=== PATIENT | male | born 1960 | race American Indian/Alaskan Native ===

== ENCOUNTER 2019-06-09 13:36 | Emergency (ER) | payer MEDICARE | END 2019-06-09 14:19 | disposition left against medical advice (07) | LOC: ED 13:36 | DX: R55 Syncope and collapse (principal); Z53.21 Procedure and treatment not carried out due to patient leaving prior to being seen by health care provider ==

== ENCOUNTER 2019-07-31 20:44 | Emergency (ER) | payer MEDICARE ==
--- NOTE | 2019-07-31 22:36 | Emergency Department Report ---
{null, ED Male HPI - General Chief complaint: Urogenital-Male Stated complaint: SWOLLEN TESTICLES Time Seen by Provider: 07/31/19 22:04 Source: EMS Mode of arrival: Ambulatory Limitations: No Limitations - History of Present Illness Initial comments: 59-year-old male with history of alcohol abuse, presents to ED with pain and swelling to the left testicle x1 week. Patient states there is a sore on his testicle that has opened up and started draining pus. Patient denies fever, nausea or vomiting. Patient was discharged 1 week ago following an admission for sepsis, acute renal failure, UTI, and pancreatitis. MD Complaint: testicle pain, testicle swelling -: week(s) (1) Location: left testicle Severity: moderate Quality: aching Consistency: constant Improves with: none Worsens with: palpation discharge. denies: fever, nausea/vomiting - Related Data Home Medications Medication Instructions Recorded Confirmed Last Taken Indomethacin 50 mg PO Q8H 04/19/16 04/19/16 Unknown Previous Rx's Medication Instructions Recorded Last Taken Type Folic Acid [Folvite] 1 mg PO QDAY #30 tablet 04/23/16 Unknown Rx Thiamine [Vitamin B-1] 100 mg PO QDAY #30 tablet 04/23/16 Unknown Rx allopurinoL [Zyloprim] 100 mg PO BID #60 tablet 04/23/16 Unknown Rx amLODIPine 5 mg PO DAILY #30 tab 04/23/16 Unknown Rx chlordiazePOXIDE [Librium] 25 mg PO Q8H #30 capsule 04/23/16 Unknown Rx AtorvaSTATin [Lipitor] 40 mg PO QHS #30 tablet 07/24/19 Unknown Rx Pantoprazole [Protonix TAB] 40 mg PO BID #60 tablet 07/24/19 Unknown Rx Allergies Allergy/AdvReac Type Severity Reaction Status Date / Time No Known Allergies Allergy Unverified 07/01/13 16:36 ED Review of Systems ROS: Stated complaint: SWOLLEN TESTICLES Other details as noted in HPI Comment: All other systems reviewed and negative Gastrointestinal: denies: nausea, vomiting Genitourinary: as per HPI ED Past Medical Hx - Past Medical History Hx Hypertension: Yes Hx Arthritis: Yes Additional medical history: gouty arthritis. pancreatitis - Social History Smoking Status: Never Smoker Substance Use Type: None - Medications Home Medications: Home Medications Medication Instructions Recorded Confirmed Last Taken Type Indomethacin 50 mg PO Q8H 04/19/16 04/19/16 Unknown History Folic Acid [Folvite] 1 mg PO QDAY #30 tablet 04/23/16 Unknown Rx Thiamine [Vitamin B-1] 100 mg PO QDAY #30 tablet 04/23/16 Unknown Rx allopurinoL [Zyloprim] 100 mg PO BID #60 tablet 04/23/16 Unknown Rx amLODIPine 5 mg PO DAILY #30 tab 04/23/16 Unknown Rx chlordiazePOXIDE [Librium] 25 mg PO Q8H #30 capsule 04/23/16 Unknown Rx AtorvaSTATin [Lipitor] 40 mg PO QHS #30 tablet 07/24/19 Unknown Rx Pantoprazole [Protonix TAB] 40 mg PO BID #60 tablet 07/24/19 Unknown Rx ED Physical Exam - General Limitations: No Limitations General appearance: alert, in no apparent distress - Head Head exam: Present: atraumatic, normocephalic - Eye Eye exam: Present: normal appearance, EOMI - ENT ENT exam: Present: mucous membranes moist - Neck Neck exam: Present: normal inspection - Respiratory Respiratory exam: Present: normal lung sounds bilaterally. Absent: respiratory distress - Cardiovascular Cardiovascular Exam: Present: regular rate, normal rhythm - GI/Abdominal GI/Abdominal exam: Present: soft. Absent: distended, tenderness - exam: Present: scrotal swelling (moderate, left-sided, w/ associated induration and an area w/ purulent discharge overlying area of fluctuance) - Extremities Exam Extremities exam: Present: normal inspection - Neurological Exam Neurological exam: Present: alert, oriented X3 - Psychiatric Psychiatric exam: Present: normal affect, normal mood - Skin Skin exam: Present: warm, dry, intact, normal color ED Course Vital Signs 07/31/19 07/31/19 07/31/19 21:16 22:30 23:32 Temperature 99.5 F Pulse Rate 99 H 89 94 H Respiratory 20 19 16 Rate Blood Pressure 141/84 141/84 Blood Pressure 126/74 [Right] O2 Sat by Pulse 97 100 100 Oximetry 07/31/19 08/01/19 08/01/19 23:46 00:00 00:16 Temperature Pulse Rate 86 86 80 Respiratory 17 13 16 Rate Blood Pressure 141/84 145/74 145/74 Blood Pressure [Right] O2 Sat by Pulse 100 100 100 Oximetry 08/01/19 08/01/19 08/01/19 00:19 00:30 00:46 Temperature 101.1 F H Pulse Rate 83 76 Respiratory 12 14 Rate Blood Pressure 145/74 145/74 Blood Pressure [Right] O2 Sat by Pulse 100 100 Oximetry 08/01/19 08/01/19 08/01/19 01:00 01:15 01:30 Temperature Pulse Rate 83 74 72 Respiratory 21 16 13 Rate Blood Pressure 145/74 145/74 145/74 Blood Pressure [Right] O2 Sat by Pulse 100 100 100 Oximetry 08/01/19 08/01/19 08/01/19 01:46 02:00 02:16 Temperature Pulse Rate 69 70 71 Respiratory 12 14 15 Rate Blood Pressure 145/74 137/78 137/78 Blood Pressure [Right] O2 Sat by Pulse 100 100 97 Oximetry 08/01/19 08/01/19 08/01/19 02:30 02:46 02:51 Temperature 99.7 F H Pulse Rate 85 75 Respiratory 23 19 Rate Blood Pressure 137/78 137/78 Blood Pressure [Right] O2 Sat by Pulse 100 100 Oximetry - Consultations Consultation #1: 08/01/19 00:43 Contacted [place] transfer line. State that they are on diversion. So, [facility] transfer line called for [facility]. 08/01/19 01:02 [employer] transfer class a lineman states no urologist director hr communications at [facility], so the asphalt screed operator contacted Dr Mahoney at [facility], which does have urology on-call. I spoke w/ Dr Mahoney, who initially said that he would accept, then changed his mind, stating that [facility] is too far away from [facility]. I explained that [facility] does not have a urologist director hr communications, [place] is on diversion, and [facility] has no urologist director hr communications either. He believes that [facility] is too far away and that we should be able to find another hospital [facility] that has urology on-call. So, he then refused to accept the transfer. supervisor bottle house cleaners here at [facility] was informed. 08/01/19 01:20 [employer] asphalt screed operator called back and stated that he was able to find another urologist director hr communications that covers [facility] and [facility]. So, I spoke to Dr Vasquez, who asks me to contact our general surgeon on-call to see if they thought that they could handle it. If not, he will accept the transfer. 08/01/19 01:50 Spoke w/ Dr Edwards, general surgeon on-call here at [facility]. Does not feel comfortable seeing this type of patient, states patient needs urology consult. 08/01/19 02:04 Spoke again w/ Dr Vasquez, urology on-call. Accepts transfer to [facility]. Wants pt to come to the ER. Spoke w/ ER physician, Dr Diaz, who accepts transfer to the [facility]. ED Medical Decision Making - Lab Data Result diagrams: 07/31/19 23:25 07/31/19 23:25 - Radiology Data Radiology results: report reviewed, image reviewed - Medical Decision Making 59-year-old male presents to ED with 1 week history of left-sided scrotal swelling and pain. On exam patient has induration, fluctuance and purulent discharge on the anterior surface of the left scrotum. Testicles tender to pa lpation. Patient developed a fever of 101 here in the ED. WBCs of 18. Lactic acid is normal. Vital signs are stable. Ultrasound shows left-sided orchitis with a 9 mm focal abscess within the testicle itself. Also shows a 3.5 x 2.5 x 5.5 cm scrotal abscess that has the possibility of being a mass lesion. Blood cultures were drawn, patient given vancomycin and Zosyn. Due to recent admission for sepsis, concern for possible worsening of patient's condition and development of Brooke's gangrene, patient requires IV antibiotics and urology consult. We do not have urology director hr communications here to this facility, therefore patient will be transferred to [facility]. I have spoken to Dr. Valdez who is aware the patient and will be seeing this patient. Patient accepted to [facility] ED by Dr. Diaz, ER attending. Critical care attestation.: If time is entered above; I have spent that time in minutes in the direct care of this critically ill patient, excluding procedure time. ED Disposition Clinical Impression: Orchitis with abscess, Scrotal abscess Disposition: [id number]/TX-[id number] ANOTHER TYPE HLTHCARE Is pt being admited?: No Condition: Stable Referrals: DEJUAN MASON MD [Primary Care Provider] - 3-5 Days Time of Disposition: 02:10 }
[2019-07-31] MEDS ORDERED: MORPHINE 4 MG/1 ML INJ ONE (22:52)
[2019-07-31] MEDS ORDERED: MORPHINE 4 MG/1 ML INJ IV ONE (22:52)
[2019-07-31] MEDS ORDERED: SODIUM CHLORIDE 0.9% 1000 ML 1,000 ML IV ONE (23:12)
[2019-07-31 23:52] LABS: Hematocrit 33.2 % (35.5-45.6); Hemoglobin 11.1 gm/dl (11.8-15.2); Mean Corpuscular HGB Conc 33 % (32-34); Mean Corpuscular Volume 77 fl (84-94); Platelet Count 365 K/mm3 (140-440); Red Blood Count 4.32 M/mm3 (3.65-5.03)
[2019-08-01 00:11] LABS: INR 1.12 (0.87-1.13); Partial Thromboplastin Time 30.5 Sec. (24.2-36.6)
[2019-08-01 00:14] LABS: Red Cell Distribution Width 26.7 % (13.2-15.2)
[2019-08-01] MEDS ORDERED: ACETAMINOPHEN 500 MG TAB ONE (00:14)
[2019-08-01 00:16] LABS: BUN/Creatinine Ratio 24; Blood Urea Nitrogen 12 mg/dL (9-20); Calcium 9.4 mg/dL (8.4-10.2); Hemolysis Index 38
[2019-08-01] MEDS ORDERED: ACETAMINOPHEN 500 MG TAB PO ONE (00:17)
--- NOTE | 2019-08-01 00:21 | Ultrasound Report ---
{null, Testicular ultrasound INDICATION: Left testicular swelling FINDINGS: The right testicle measures 3.7 cm in length and is unremarkable. There is arterial flow in the right testicle. The left testicle measures 3 cm in length. The left testicle is abnormal in appearance. There is some abnormal attenuation along the anterior superior aspect with some hypoechoic area. There is a 9 mm h ypoechoic structure within the testicle itself. The appearance is most characteristic of orchitis and possible testicular/scrotal abscess. There is arterial flow. There is a 3.5 x 2.5 x 5.5 cm heterogeneous structure superior to the right testicle. IMPRESSION: Left testicle is abnormal. There is a 9 mm hypoechoic area possibly representing focal te sticular abscess. Is possible this could represent small neoplasm. In addition there is abnormal echo genicity with a hypoechoic area along the anterior superior aspect of the testicle possibly represent ing a small abscess. The appearance is suspicious for orchitis. Superior to the right testicle there is a 3.5 x 2.5 x 5.5 cm heterogeneous collection in the scrotum which likely represents abscess. Possibility of mass lesion is considered. Signer Name: Tarun Rodriguez MD Signed: 08/01/2019 12:16 AM Workstation Name: [id number] }
[2019-08-01] MEDS ORDERED: VANCOMYCIN 1,750 MG in SODIUM CHLORIDE 0.9% 500 ML 500 ML IV ONE (00:25)
[2019-08-01] MEDS ORDERED: PIPERACIL/TAZOBACTA 4.5/NS 100 4.5 GM/100 ML VIAL IV SCH (01:00)
[2019-08-01] MEDS ORDERED: VANCOMYCIN PHARMACY TO DOSE IV SCH (01:00)
[2019-08-01] MEDS ORDERED: SODIUM CHLORIDE 0.9% 500 ML 500 ML ONE (01:36)
[2019-08-01] MEDS ORDERED: SODIUM CHLORIDE 0.9% 100 ML IVPB IV SCH (02:00)
[2019-08-01 02:49] LABS: Basophils % (Manual) 0 % (0.0-1.8); Eosinophils % (Manual) 0 % (0.0-4.3); Total Cells Counted 100
[2019-08-01 02:51] LABS: Anisocytosis 3+; Hypochromasia 1+
[2019-08-01 02:52] VITALS: BP 137/78
[2019-08-01 02:52] LABS: Platelet Estimate Consistent w Auto
== END 2019-08-01 03:51 | disposition other institution (70) ==
LOC: ED 20:44
DX: N45.2 Orchitis (principal); N49.2 Inflammatory disorders of scrotum; I10 Essential (primary) hypertension; M19.90 Unspecified osteoarthritis, unspecified site; Z79.899 Other long term (current) drug therapy
CPT/HCPCS: 36415; 80048; 82140; 85007; 85025; 85610; 85730; 87040; 93005; 93010; 93975; 96365; 96366; 96368; 96375; 99285; J2270; J2543; J3370; J7030; J7040

== ENCOUNTER 2019-10-25 12:23 | Inpatient (IN) | payer MEDICARE ==
[2019-10-25] MEDS ORDERED: SODIUM CHLORIDE 0.9% 1000 ML 1,000 ML IV ONE (12:50)
[2019-10-25] MEDS ORDERED: FAMOTIDINE 20 MG/2 ML INJ IV ONE (12:50)
[2019-10-25] MEDS ORDERED: LORazepam 2 MG/ML VIAL IV PRN ×2 (12:50)
[2019-10-25] MEDS ORDERED: SODIUM CHLORIDE 0.9% 1000 ML 2,000 ML IV ONE (12:50)
[2019-10-25] MEDS ORDERED: ONDANSETRON 4 MG/2 ML INJ IV ONE (12:50)
--- NOTE | 2019-10-25 12:56 | Emergency Department Report ---
ED General Adult HPI - General Chief complaint: Nausea/Vomiting/Diarrhea Stated complaint: NAUSEA/BP LOW PUI?: No Time Seen by Provider: 10/25/19 12:36 Source: patient, EMS (Verbal report received from emergency medical services. EMS documentation not available at time of chart dictation ), RN notes reviewed, old records reviewed Mode of arrival: Stretcher Limitations: No Limitations - History of Present Illness Initial comments: Patient is a 59-year-old gentleman. I have evaluated this patient in the past. His past medical history includes hypertension, arthritis, alcohol abuse, pancreatitis, tobacco dependency. The patient had an EGD performed at this hospital July 2019, which showed duodenitis and esophagitis. The patient has been counseled multiple times to discontinue alcohol consumption. He is brought to the hospital by emergency medical services. As per verbal report from EMS, patient has been having abdominal cramping, nausea vomiting, weakness, generalized malaise and fatigue. Patient complains of nausea and vomiting abdominal pain since Wednesday. Today is Wednesday. He has "vomited too many times to count." He also endorses chest pain with throwing up. He denies DVT and pulmonary embolism risk factors. He has chronic testicular discomfort. He denies dysuria. He denies hematemesis, but he is not sure about bright red blood per rectum. To me, he denies homicidality and suicidality. His last alcoholic beverage was "a few days ago." Patient hypotensive in the field, EMS initiated IV fluids. -: Gradual, days(s) Location: chest, abdomen Severity scale (0 -10): 7 Quality: aching Consistency: constant Improves with: rest Worsens with: movement - Related Data Home Medications Medication Instructions Recorded Confirmed Last Taken Indomethacin 50 mg PO Q8H 04/19/16 04/19/16 Unknown Previous Rx's Medication Instructions Recorded Last Taken Type Folic Acid [Folvite] 1 mg PO QDAY #30 tablet 04/23/16 Unknown Rx Thiamine [Vitamin B-1] 100 mg PO QDAY #30 tablet 04/23/16 Unknown Rx allopurinoL [Zyloprim] 100 mg PO BID #60 tablet 04/23/16 Unknown Rx amLODIPine 5 mg PO DAILY #30 tab 04/23/16 Unknown Rx chlordiazePOXIDE [Librium] 25 mg PO Q8H #30 capsule 04/23/16 Unknown Rx AtorvaSTATin [Lipitor] 40 mg PO QHS #30 tablet 07/24/19 Unknown Rx Pantoprazole [Protonix TAB] 40 mg PO BID #60 tablet 07/24/19 Unknown Rx Allergies Allergy/AdvReac Type Severity Reaction Status Date / Time No Known Allergies Allergy Verified 10/25/19 12:42 ED Review of Systems ROS: Stated complaint: NAUSEA/BP LOW Other details as noted in HPI Constitutional: malaise, weakness. denies: fever Eyes: denies: eye discharge ENT: denies: congestion Respiratory: denies: wheezing Cardiovascular: chest pain Gastrointestinal: abdominal pain, nausea, vomiting. denies: diarrhea Genitourinary: denies: dysuria Musculoskeletal: as per HPI Skin: as per HPI Neurological: as per HPI, weakness Psychiatric: denies: homicidal thoughts, suicidal thoughts Hematological/Lymphatic: as per HPI ED Past Medical Hx - Past Medical History Hx Hypertension: Yes Hx Arthritis: Yes Additional medical history: gouty arthritis. pancreatitis - Social History Smoking Status: Never Smoker Substance Use Type: None - Medications Home Medications: Home Medications Medication Instructions Recorded Confirmed Last Taken Type Indomethacin 50 mg PO Q8H 04/19/16 04/19/16 Unknown History Folic Acid [Folvite] 1 mg PO QDAY #30 tablet 04/23/16 Unknown Rx Thiamine [Vitamin B-1] 100 mg PO QDAY #30 tablet 04/23/16 Unknown Rx allopurinoL [Zyloprim] 100 mg PO BID #60 tablet 04/23/16 Unknown Rx amLODIPine 5 mg PO DAILY #30 tab 04/23/16 Unknown Rx chlordiazePOXIDE [Librium] 25 mg PO Q8H #30 capsule 04/23/16 Unknown Rx AtorvaSTATin [Lipitor] 40 mg PO QHS #30 tablet 07/24/19 Unknown Rx Pantoprazole [Protonix TAB] 40 mg PO BID #60 tablet 07/24/19 Unknown Rx ED Physical Exam - General Limitations: No Limitations General appearance: alert, anxious, in distress - Head Head exam: Present: atraumatic, normocephalic - Eye Eye exam: Present: normal appearance, EOMI - ENT ENT exam: Present: normal orophraynx, mucous membranes dry, normal external ear exam, other (Tongue fasciculations noted) - Neck Neck exam: Present: normal inspection, full ROM. Absent: tenderness, meningismus - Respiratory Respiratory exam: Present: normal lung sounds bilaterally. Absent: respiratory distress - Cardiovascular Cardiovascular Exam: Present: normal rhythm, tachycardia, normal heart sounds. Absent: systolic murmur, diastolic murmur, rubs, gallop - GI/Abdominal GI/Abdominal exam: Present: soft, tenderness. Absent: distended, guarding, rebound, rigid, pulsatile mass - Rectal Rectal exam: Present: normal inspection, normal rectal tone, other ( Chaperoned by Kiera Nevarez) - exam: Present: normal inspection, other (There is normal testicular lie bilaterally. There is normal cremasteric reflex bilaterally. Chaperoned by Kiera Nevarez) - Extremities Exam Extremities exam: Present: normal inspection, full ROM, other (2+ pulses noted in the bilateral upper and lower extremities. There is no palpable cord. negative Homans sign. Muscular compartments are soft. The pelvis is stable.). Absent: pedal edema, calf tenderness - Back Exam Back exam: Present: normal inspection, full ROM. Absent: tenderness, CVA tenderness (R), CVA tenderness (L), paraspinal tenderness, vertebral tenderness - Neurological Exam Neurological exam: Present: alert, oriented X3, other (No facial droop. Tongue midline. Extraocular movements intact bilaterally. Facial sensation intact to light touch in V1, V2, V3 distribution bilaterally. 5 and a 5 strength in 4 extremities. Sensation intact to light touch in 4 extremities.). Absent: motor sensory deficit - Psychiatric Psychiatric exam: Present: anxious. Absent: homicidal ideation, suicidal ideation - Skin Skin exam: Present: warm, dry, intact, normal color. Absent: rash ED Course Vital Signs 10/25/19 10/25/19 10/25/19 12:38 12:43 12:46 Temperature 98.2 F Pulse Rate 99 H 127 H 93 H Respiratory 14 16 18 Rate Blood Pressure 87/51 Blood Pressure 92/51 [Left] O2 Sat by Pulse 100 99 Oximetry 10/25/19 10/25/19 10/25/19 13:00 13:16 13:30 Temperature Pulse Rate 85 88 79 Respiratory 12 17 16 Rate Blood Pressure 87/51 79/51 79/51 Blood Pressure [Left] O2 Sat by Pulse 100 100 99 Oximetry 10/25/19 10/25/19 10/25/19 13:46 14:00 14:15 Temperature Pulse Rate 80 85 77 Respiratory 13 10 L 13 Rate Blood Pressure 101/56 107/67 103/64 Blood Pressure [Left] O2 Sat by Pulse 100 99 92 Oximetry 10/25/19 10/25/19 10/25/19 14:30 14:45 15:00 Temperature Pulse Rate 77 76 71 Respiratory 15 12 12 Rate Blood Pressure 101/59 95/63 94/57 Blood Pressure [Left] O2 Sat by Pulse 95 94 Oximetry 10/25/19 10/25/19 10/25/19 15:15 15:30 15:54 Temperature Pulse Rate 77 76 84 Respiratory 15 16 24 Rate Blood Pressure 98/64 101/70 101/70 Blood Pressure [Left] O2 Sat by Pulse 100 100 100 Oximetry 10/25/19 10/25/19 10/25/19 16:00 16:15 16:30 Temperature Pulse Rate 80 82 83 Respiratory 12 13 12 Rate Blood Pressure 112/75 117/80 104/74 Blood Pressure [Left] O2 Sat by Pulse 100 100 100 Oximetry 10/25/19 10/25/19 10/25/19 16:45 17:00 17:16 Temperature Pulse Rate 81 77 79 Respiratory 12 15 16 Rate Blood Pressure 114/75 107/69 107/69 Blood Pressure [Left] O2 Sat by Pulse 100 99 97 Oximetry 10/25/19 10/25/19 10/25/19 17:30 17:46 18:00 Temperature Pulse Rate 85 83 70 Respiratory 19 14 18 Rate Blood Pressure 107/69 107/69 106/66 Blood Pressure [Left] O2 Sat by Pulse 97 100 100 Oximetry 10/25/19 10/25/19 10/25/19 18:16 18:30 18:46 Temperature Pulse Rate 70 87 78 Respiratory 15 11 L 19 Rate Blood Pressure 106/66 106/66 106/66 Blood Pressure [Left] O2 Sat by Pulse 100 100 100 Oximetry 10/25/19 10/25/19 10/25/19 19:00 20:00 20:34 Temperature 97.7 F Pulse Rate 93 H 79 88 Respiratory 11 L 15 18 Rate Blood Pressure 112/77 122/78 119/77 Blood Pressure [Left] O2 Sat by Pulse 100 100 90 Oximetry 10/25/19 10/25/19 20:35 20:38 Temperature 97.7 F Pulse Rate 81 Respiratory 18 17 Rate Blood Pressure Blood Pressure 122/78 [Left] O2 Sat by Pulse 100 Oximetry - Reevaluation(s) Reevaluation #1: 10/25/19 13:17 Differential diagnosis, including but not limited to: Pancreatitis, alcohol withdrawal, obstruction, colitis, diverticular, electrolyte derangement, dehydration, GERD, gastritis, hiatal hernia Assessment and plan: 59-year-old gentleman with known history of pancreatitis, alcohol dependence, endoscopically confirmed esophagitis, with no DVT or pulmonary embolism risk factors, presenting with abdominal pain, nausea vomiting, hypotension, suspicious for pancreatitis, GERD, gastritis and volume depletion. 2 large-bore IVs to be established. IV fluids ordered. Pain medication, nausea medication to be ordered. Appropriate screening laboratory studies ordered. Patient placed on alcohol withdrawal protocol. There is no history of trauma. He is clinically sober at this time. He has not endorsed homicidality or suicidality to myself. Blood pressure is improving. We will reassess after data points have resulted. Anticipate admission for alcohol Related pancreatitis, GERD, gastritis. Reevaluation #2: 10/25/19 15:37 Blood pressure improved. Please note that there was a significant delay in disposition as the laboratory chemistry department had the patient's labs, but secondary to error, did not result them. I personally called up the lab multiple times to request expedited release of his studies. Eventually, laboratory studies resulted, showing renal insufficiency, likely secondary to dehydration, and vasomotor nephropathy. He does have an elevated troponin, which I suspect is a type II troponin leak, likely secondary to nausea, vomiting, dehydration, renal insufficiency. CT scan of the abdomen pelvis is pending at this time. Case presented to hospital physician, Dr. Hussein, who accepts the patient to the medical service. ED Medical Decision Making - Lab Data Result diagrams: 10/25/19 13:40 10/26/19 03:53 Vital Signs 10/25/19 12:43 Temperature 98.2 F Pulse Rate 127 H Respiratory 16 Rate Blood Pressure 92/51 [Left] O2 Sat by Pulse 100 Oximetry - EKG Data -: EKG Interpreted by Me EKG shows normal: sinus rhythm Rate: normal - EKG Data When compared to previous EKG there are: no significant change 10/25/19 13:19 Sinus rhythm, 93 bpm, left axis deviation, left anterior fascicular block, left ventricular hypertrophy, motion artifact, QTC is prolonged, the EKG is abnormal, the EKG is not a STEMI, the EKG appears to be unchanged from prior EKG from ebruary 2019, with the exception of prolonged QTC - Radiology Data Radiology results: report reviewed, image reviewed Print Report Referring Physician: ARACELI MADRID III Patient Name: SABINA KIRKLAND Date of : 1960 Sex: Male Report Date: 2019-07-22 Report Status: Finalized Findings [facility] [address] [id number] Cat Scan Report Signed Patient: SABINA KIRKLAND MR#: [id number] : 1960 Acct:[id number] Age/Sex: 59 / M ADM Date: 07/22/19 Loc: ED Attending Dr: Ordering Physician: ARACELI MADRID III, MD Date of Service: 07/22/19 Procedure(s): CT abdomen pelvis wo con Accession Number(s): [id number] cc: ARACELI MADRID III, MD CT ABDOMEN AND PELVIS WITHOUT CONTRAST INDICATION: Nausea with vomiting. Back pain. COMPARISON: No relevant prior imaging study available. TECHNIQUE: Axial, coronal and sagittal CT imaging of the abdomen and pelvis was performed without contrast. Lack of intravenous contrast limits evaluation of the vascular and solid organs. All CT scans at this location are performed using CT dose reduction for ALARA by means of automated exposure control. FINDINGS: LOWER CHEST: No significant abnormality. LIVER: No significant abnormality. BILIARY: No significant abnormality. PANCREAS: There is generalized mild peripancreatic inflammation. Generalized edema is noted along the pancreas is well. No additional significant abnormality. SPLEEN: No significant abnormality. ADRENALS: There is hyperplasia of the adrenal glands without a nodule or mass. KIDNEYS AND URETERS: Multiple bilateral renal cysts are seen measuring up to 1.1 cm on the left and 1.9 cm on the right. No additional significant abnormality. GI TRACT: No significant abnormality of the stomach or small bowel. There is mild sigmoid diverticulosis without evidence of diverticulitis. The colon is otherwise unremarkable. Unremarkable appendix. PERITONEUM: No free fluid. No free air. No fluid collection. LYMPH NODES: No significant adenopathy. VASCULATURE: The aorta is normal in caliber with mild generalized atherosclerosis. URINARY BLADDER: No significant abnormality. REPRODUCTIVE ORGANS: The prostate gland is normal in size and is densely calcified. ADDITIONAL FINDINGS: None. SKELETAL SYSTEM: No acute abnormality. Degenerative changes are seen throughout the spine. There are multiple old left rib fractures. IMPRESSION: 1. Suspected acute pancreatitis without an associated complication. 2. Additional findings as above. Signer Name: Jan Rice MD Signed: 07/22/2019 4:54 AM Workstation Name: [email or web address] Transcribed By: [place] Dictated By: Jan Rice MD Electronically Authenticated By: Jan Rice MD Signed Date/Time: 07/22/19453 DD/ 9 TD/TT: Patient: SABINA KIRKLAND MR#: [id number] : 1960 Acct:[id number] Age/Sex: 59 / M ADM Date: 07/22/19 Loc: ED Attending Dr: Ordering Physician: ARACELI MADRID III, MD Date of Service: 07/22/19 Procedure(s): CT angio chest Accession Number(s): [id number] cc: ARACELI MADRID III, MD CTA CHEST WITH IV CONTRAST INDICATION: Chest pain. Back pain. Hypoxia. TECHNIQUE: Axial CT images were obtained through the chest after injection of 100 cc Omnipaque 350 IV contrast. 3 plane MIP reconstructions were produced. All CT scans at this location are performed using CT dose reduction for ALARA by means of automated exposure control. COMPARISON: One view of the chest from earlier today. FINDINGS: PULMONARY ARTERIES: No pulmonary emboli. AORTA AND ARTERIES: The aorta and great vessels are patent and normal in caliber with mild atherosclerosis. There is mild coronary atherosclerosis as well. No additional significant abnormality. MEDIASTINUM: The thyroid gland is unremarkable. The trachea and main bronchi are patent and normal in caliber. No mass or lymphadenopathy. Normal heart size without a pericardial effusion. LUNGS: No suspicious consolidation, nodule or mass. No pneumothorax or pleural effusion. ADDITIONAL FINDINGS: None. UPPER ABDOMEN: No acute findings. BONES: No acute abnormality. Mild degenerative changes are present throughout the spine. IMPRESSION: 1. No CT evidence for pulmonary embolism. 2. No acute abnormality of the chest. Signer Name: Jan Rice MD Signed: 07/22/2019 4:44 AM Workstation Name: [email or web address] Print Report Referring Physician: ALEX TINAJERO Patient Name: SABINA KIRKLAND Date of : 1960 Sex: Male Report Date: 2019-10-25 Report Status: Finalized Findings [address] [address] XRay Report Signed Patient: SABINA KIRKLAND MR#: [id number] : 1960 Acct:[id number] Age/Sex: 59 / M ADM Date: 10/25/19 Loc: ED Attending Dr: Ordering Physician: ALEX TINAJERO MD Date of Service: 10/25/19 Procedure(s): XR chest 1V ap Accession Number(s): [id number] cc: ALEX TINAJERO MD Fluoro Time In Minutes: CHEST 1 VIEW INDICATION: cp abd pain n/v. COMPARISON: 07/26/2019 FINDINGS: SUPPORT DEVICES: None. HEART / MEDIASTINUM: No significant abnormality. LUNGS / PLEURA: No significant pulmonary or pleural abnormality. No pneumothorax. ADDITIONAL FINDINGS: IMPRESSION: 1. No acute cardiopulmonary disease Signer Name: Ramírez Will MD Signed: 10/25/2019 1:34 PM Workstation Name: [id number] Transcribed By: WG Dictated By: Ramírez Will MD Electronically Authenticated By: Ramírez Will MD Signed Date/Time: 10/25/19 133 DD/ 1334 TD/TT: Print Report Referring Physician: ALEX TINAJERO Patient Name: SABINA KIRKLAND Date of : 1960 Sex: Male Report Date: 2019-10-25 Report Status: Finalized Findings [address] [address] Cat Scan Report Signed Patient: SABINA KIRKLAND MR#: [id number] : 1960 Ac ct:[id number] Age/Sex: 59 / M ADM Date: 10/25/19 Loc: 4A [id number]: FAY HUSSEIN MD Ordering Physician: ALEX TINAJERO MD Date of Service: 10/25/19 Procedure(s): CT abdomen pelvis wo con Accession Number(s): [id number] cc: ALEX TINAJERO MD CT abdomen pelvis wo con INDICATION: abd pain n/v. TECHNIQUE: All CT scans at this location are performed using the following dose modulation technique: Automated exposure control. Helical slices were obtained through the abdomen and pelvis. No contrast is administered. COMPARISON: CT scan dated 07/22/2019 FINDINGS: Abdomen: No acute abnormality is seen in the lower chest. The liver, spleen, adrenal glands, and kidneys are unchanged in ap pearance from the prior study. Hyperplasia of the adrenal glands is stable. Cystic lesions in the kidneys are better seen on the prior contrast-enhanced study but appear unchanged. Atherosclerotic calcifications in the aorta and iliac arteries appear unchanged. There are calcifications noted in the head of the pancreas characteristic of chronic pancreas tightness. There is a 2.2 cm fluid collection between the head of the pancreas in the second portion of the duodenum. There is wall thickening in the proximal duodenum.. The gallbladder is grossly unremarkable. There is some fluid noted in small bowel small bowel loops are normal caliber. This is a nonspecific finding but could indicate an en teritis. Pelvis: Prostatic calcifications are noted. Urinary bladder is grossly unremarkable. There is no inflammatory change. There are no abnormal collections. On review of bone windows, no acute osseous abnormalities are seen. Degenerative changes are noted spine. IMPRESSION: 1. Calcifications are noted in the head of the pancreas characteristic of chronic pancreatitis. Small fluid collection between the head of the pancreas in the duodenum. There is some mild stranding in the peripancreatic fat adjacent to the head of the pancreas and there is some wall thickening in the duodenum. This could represent a component of acute pancreatitis superimposed on chronic calcific pancreatitis. Wall t hickening of the duodenum could represent duodenitis or peptic ulcer disease rather than pancreatitis. Signer Name: Tarun Rodriguez MD Signed: 10/25/2019 4:20 PM Workstation Name: [id number] Transcribed By: Dictated By: Tarun Rodriguez MD Electronically Authenticated By: Tarun Rodriguez MD Signed Date/Time: 10/25/19 1620 DD/ 1613 Critical Care Time: Yes Critical care time in (mins) excluding proc time.: 35 Critical care attestation.: If time is entered above; I have spent that time in minutes in the direct care of this critically ill patient, excluding procedure time. ED Disposition Clinical Impression: Hypokalemia, Metabolic alkalosis Acute renal failure Qualifiers: Acute renal failure type: unspecified Qualified Code(s): N17.9 - Acute kidney failure, unspecified Nausea & vomiting Qualifiers: Vomiting type: unspecified Vomiting Intractability: non-intractable Qualified Code(s): R11.2 - Nausea with vomiting, unspecified Pancreatitis Qualifiers: Chronicity: acute Pancreatitis type: unspecified pancreatitis type Acute pancreatitis complication: unspecified Qualified Code(s): K85.90 - Acute pancreatitis without necrosis or infection, unspecified Disposition: CA-09 OP ADMIT IP TO THIS [facility] Is pt being admited?: Yes Does the pt Need Aspirin: No Condition: Fair
[2019-10-25] MEDS ORDERED: D5W/0.45% NACL 1,000 ML IV SCH (13:00)
--- NOTE | 2019-10-25 13:39 | XRay Report ---
CHEST 1 VIEW INDICATION: cp abd pain n/v. COMPARISON: 07/26/2019 FINDINGS: SUPPORT DEVICES: None. HEART / MEDIASTINUM: No significant abnormality. LUNGS / PLEURA: No significant pulmonary or pleural abnormality. No pneumothorax. ADDITIONAL FINDINGS: IMPRESSION: 1. No acute cardiopulmonary disease Signer Name: Ramírez Will MD Signed: 10/25/2019 1:34 PM Workstation Name: [id number]
[2019-10-25] MEDS ORDERED: SUCRALFATE 1 GM/10 ML ORAL LIQD PO ONE (13:54)
[2019-10-25 14:28] LABS: Basophils % (Auto) 0.4 % (0.0-1.8); Eosinophils # (Auto) 0.1 K/mm3 (0.0-0.4); Eosinophils % (Auto) 0.6 % (0.0-4.3); Hematocrit 39.3 % (35.5-45.6); Hemoglobin 12.7 gm/dl (11.8-15.2); Lymphocytes # (Auto) 1.2 K/mm3 (1.2-5.4); Lymphocytes % (Auto) 11.2 % (13.4-35.0); Mean Corpuscular HGB Conc 32 % (32-34); Mean Corpuscular Volume 75 fl (84-94); Monocytes # (Auto) 1.4 K/mm3 (0.0-0.8); Monocytes % (Auto) 13.4 % (0.0-7.3); Platelet Count 402 K/mm3 (140-440); Red Blood Count 5.27 M/mm3 (3.65-5.03)
[2019-10-25 14:37] LABS: INR 1.05 (0.87-1.13)
[2019-10-25 14:43] LABS: Red Cell Distribution Width 20.6 % (13.2-15.2)
[2019-10-25 15:25] LABS: Albumin 3.9 g/dL (3.9-5); Calcium 9.7 mg/dL (8.4-10.2)
[2019-10-25 15:37] LABS: Chol/HDL Ratio 3.34 %
--- NOTE | 2019-10-25 15:37 | History and Physical Report ---
History of Present Illness Chief complaint: I feel sick History of present illness: 59 YO Male with HTN, OA, HLD, ETOH Dependence, ETOH Pancreatitis, Esophagitis, Gout presents to ED for evaluation. Patient states that he has "been feeling sick" over the past 5 days with persistent symptoms over the same timeframe P atient states that he has experienced abdominal cramping accompanied by nausea and multiple episodes of vomiting, generalized weakness, fatigue. Patient states that his last drink of alcohol was approximately 2 days ago. EMS was notified and upon arrival the patient was found to be in distress and subsequently transported to [facility] for further evaluation and care. Patient seen and evaluated in the emergency department. Lab and imaging studies reviewed. Patient underwent CT scan of the abdomen and pelvis which is consistent with chronic pancreatitis suspected secondary to alcohol use, patient was also found to have a urinary tract infection, as well as acute kidney injury. Patient admitted to medical floor due to increased risk of decompensation. Patient treated with IV fluid resuscitation therapy, and initiated on CIWA protocol. Patient was also initiated on IV antibiotic therapy for urinary tract infection. Patient has experienced intermittent episodes of increased lethargy while in the emergency department which is consistent with alcoholic encephalopathy. Patient treated with supportive care. Nephrology team consulted in ED. Patient denies fever, chills, chest pain, palpitation, productive cough, skin rash, recent ill contacts, ingestion of food/water from new or different sources, bright red blood per rectum, or known exposure to COVID-19. Prior admission on 07/22/2019 reviewed. All medication listed at time of admission has been reconciled. Past History Past Medical History: arthritis, hypertension, hyperlipidemia, other (See HPI) Past Surgical History: No surgical history, Other (Reviewed) Social history: single, alcohol abuse Family history: hypertension Medications and Allergies Allergies Allergy/AdvReac Type Severity Reaction Status Date / Time No Known Allergies Allergy Verified 10/25/19 12:42 Home Medications Medication Instructions Recorded Confirmed Last Taken Type Indomethacin 50 mg PO Q8H 04/19/16 04/19/16 Unknown History Folic Acid [Folvite] 1 mg PO QDAY #30 tablet 04/23/16 Unknown Rx Thiamine [Vitamin B-1] 100 mg PO QDAY #30 tablet 04/23/16 Unknown Rx allopurinoL [Zyloprim] 100 mg PO BID #60 tablet 04/23/16 Unknown Rx amLODIPine 5 mg PO DAILY #30 tab 04/23/16 Unknown Rx chlordiazePOXIDE [Librium] 25 mg PO Q8H #30 capsule 04/23/16 Unknown Rx AtorvaSTATin [Lipitor] 40 mg PO QHS #30 tablet 07/24/19 Unknown Rx Pantoprazole [Protonix TAB] 40 mg PO BID #60 tablet 07/24/19 Unknown Rx Active Meds: Active Medications Lorazepam (Ativan) 2 mg IV Q1HR PRN PRN Reason: CIWA-Ar 8-15 Lorazepam (Ativan) 4 mg IV Q1HR PRN PRN Reason: CIWA-Ar 16-25 Lorazepam (Ativan) 4 mg IV Q15MIN PRN PRN Reason: CIWA-Ar >25 Review of Systems Constitutional: weakness, malaise, no weight loss, no weight gain, no fever, no chills Ears, nose, mouth and throat: no ear pain, no ear discharge, no tinnitis, no d ecreased hearing Cardiovascular: no chest pain, no orthopnea, no palpitations, no rapid/irregular heart beat Respiratory: no cough, no cough with sputum, no excessive sputum, no hemoptysis Gastrointestinal: abdominal pain, nausea, vomiting, no loss of appetite, no early satiety, no belching Genitourinary Male: no hematuria, no flank pain, no discharge, no urinary frequency, no urinary hesitancy Rectal: no pain, no incontinence, no bleeding Musculoskeletal: no neck stiffness, no neck pain, no shooting arm pain, no arm numbness/tingling, no low back pain, no shooting leg pain Integumentary: no rash, no pruritis, no redness, no sores, no wounds Neurological: no weakness, no parathesias, no numbness, no tingling Psychiatric: no anxiety, no memory loss, no change in sleep habits, no sleep disturbances, no insomnia, no hypersomnia, no change in appetite Endocrine: no cold intolerance, no heat intolerance, no polyphagia, no excessive thirst, no polydipsia, no polyuria Hematologic/Lymphatic: no easy bruising, no easy bleeding, no lymphadenopathy, no lymphedema Allergic/Immunologic: no urticaria, no persistent infections, no anaphylaxis Exam - Constitutional Vitals: Temp Pulse Resp BP Pulse Ox 98.2 F 77 15 98/64 100 10/25/19 12:43 10/25/19 15:15 10/25/19 15:15 10/25/19 15:15 10/25/19 15:15 General appearance: Present: mild distress, disheveled - EENT Eyes: Present: PERRL ENT: hearing intact, clear oral mucosa - Neck Neck: Present: supple, normal ROM - Respiratory Respiratory effort: normal Respiratory: bilateral: CTA - Cardiovascular Heart Sounds: Present: S1 & S2. Absent: rub, click - Extremities Extremities: pulses symmetrical, No edema Peripheral Pulses: within normal limits - Abdominal General gastrointestinal: Present: soft, non-tender, non-distended, normal bowel sounds Male genitourinary: Present: normal - Integumentary Integumentary: Present: clear, warm, dry - Musculoskeletal Musculoskeletal: generalized weakness - Psychiatric Psychiatric: no intact judgment & insight, memory intact, other (Patient has experienced episodes of lethargy while in the ER) - Neurologic Neurologic: CNII-XII intact, no focal deficits, moves all extremities, no gait normal Results - Labs CBC & Chem 7: 10/25/19 13:40 10/25/19 13:40 Labs: Abnormal lab results 10/25/19 10/25/19 10/25/19 Range/Units 13:40 13:40 13:40 RBC 5.27 H (3.65-5.03) M/mm3 MCV 75 L (84-94) fl MCH 24 L (28-32) pg RDW 20.6 H (13.2-15.2) % Lymph % (Auto) 11.2 L (13.4-35.0) % [place] % (Auto) 13.4 H (0.0-7.3) % [place] # 1.4 H (0.0-0.8) K/mm3 Seg Neutrophils % 74.4 H (40.0-70.0) % Seg Neutrophils # 7.9 H (1.8-7.7) K/mm3 Potassium 3.2 L (3.6-5.0) mmol/L Chloride 89.5 L (98-107) mmol/L BUN 45 H (9-20) mg/dL Creatinine 5.8 H (0.8-1.5) mg/dL Glucose 105 H (75-100) mg/dL ALT 6 L (7-56) units/L Total Creatine Kinase 32 L (55-170) units/L Troponin T 0.041 H (0.00-0.029) ng/mL Lipase 141 H (13-60) units/L Acetaminophen < 5.0 L (10.0-30.0) ug/mL Assessment and Plan - Patient Problems (1) Acute kidney injury Current Visit: Yes Status: Acute Plan to address problem: IV fluid resuscitation therapy, monitor urine output every shift, strict I's/O, monitor urine output every shift, urine sodium, urine creatinine, renal ultrasound, nephrology team consulted in ED. Repeat BMP in a.m. to monitor serum creatinine. (2) Urinary tract infection Current Visit: Yes Status: Acute Qualifiers: Encounter type: initial encounter Plan to address problem: CBC, CMP, urinalysis, IV antibiotic therapy. (3) Alcoholic encephalopathy Current Visit: Yes Status: Acute Plan to address problem: Supportive care, CIWA protocol, thiamine, multivitamin, folic acid daily. Seizure precautions, fall precautions, neuro checks. (4) Esophagitis Current Visit: Yes Status: Acute Plan to address problem: PPI therapy, supportive care, outpatient GI follow-up. (5) Hypertension Current Visit: Yes Status: Acute Qualifiers: Hypertension type: essential hypertension Qualified Code(s): I10 - Essential (primary) hypertension Plan to address problem: Monitor blood pressure every shift, continue medical management. (6) Osteoarthritis Current Visit: Yes Status: Acute Qualifiers: Laterality: unspecified laterality Plan to address problem: Supportive care, pain control. (7) Hyperlipidemia Current Visit: Yes Status: Acute Qualifiers: Hyperlipidemia type: mixed hyperlipidemia Qualified Code(s): E78.2 - Mixed hyperlipidemia Plan to address problem: Low-cholesterol diet, lipid panel, supportive care. (8) Chronic alcoholic pancreatitis Current Visit: Yes Status: Acute Plan to address problem: IV fluid resuscitation therapy, bowel rest, advance diet as tolerated, thiamine, folic acid, multivitamin daily, alcohol cessation counseling. (9) DVT prophylaxis Current Visit: Yes Status: Acute Plan to address problem: SCD to bilateral lower extremities while in bed, prophylactic heparin
[2019-10-25] MEDS ORDERED: POTASSIUM CHLORIDE ER 20 MEQ TAB PO ONE (15:38)
[2019-10-25] MEDS ORDERED: THIAMINE 100 MG, FOLIC ACID 1 MG, MULTIPLE VITAMIN INJ, ADULT 10 ML in SODIUM CHLORIDE ... IV ONE (15:38)
[2019-10-25] MEDS ORDERED: SODIUM CHLORIDE 0.9% 1000 ML 1,000 ML IV SCH (15:45)
[2019-10-25] MEDS ORDERED: NON-FORMULARY EACH (Indomethacin [Indomethacin] 50 MG) PO SCH (15:45)
[2019-10-25 15:48] LABS: Bacteria,Urine 1+ /HPF (Negative); Bilirubin,Urine NEG (Negative); Blood,Urine SM (Negative); Color,Urine Yellow (Yellow); Mucus,Urine FEW /HPF; Sperm,Urine FEW /HPF (NP); WBC,Urine > 182.0 /HPF (0.0-6.0)
[2019-10-25] MEDS: POTASSIUM CHLORIDE 10 MEQ 10 MEQ/100 ML BAG IV SCH ×2 (16:14→16:38)
--- NOTE | 2019-10-25 16:25 | Cat Scan Report ---
CT abdomen pelvis wo con INDICATION: abd pain n/v. TECHNIQUE: All CT scans at this location are performed using the following dose modulation technique: Automated exposure control. Helical slices were obtained through the abdomen and pelvis. No contrast is adminis tered. COMPARISON: CT scan dated 07/22/2019 FINDINGS: Abdomen: No acute abnormality is seen in the lower chest. The liver, spleen, adrenal glands, and kidneys are unchanged in appearance from the prior study. Hype rplasia of the adrenal glands is stable. Cystic lesions in the kidneys are better seen on the prior c ontrast-enhanced study but appear unchanged. Atherosclerotic calcifications in the aorta and iliac ar teries appear unchanged. There are calcifications noted in the head of the pancreas characteristic of chronic pancreas tightne ss. There is a 2.2 cm fluid collection between the head of the pancreas in the second portion of the duodenum. There is wall thickening in the proximal duodenum.. The gallbladder is grossly unremarkable . There is some fluid noted in small bowel small bowel loops are normal caliber. This is a nonspecific finding but could indicate an enteritis. Pelvis: Prostatic calcifications are noted. Urinary bladder is grossly unremarkable. There is no infl ammatory change. There are no abnormal collections. On review of bone windows, no acute osseous abnormalities are seen. Degenerative changes are noted sp ine. IMPRESSION: 1. Calcifications are noted in the head of the pancreas characteristic of chronic pancreatitis. Small fluid collection between the head of the pancreas in the duodenum. There is some mild stranding in t he peripancreatic fat adjacent to the head of the pancreas and there is some wall thickening in the d uodenum. This could represent a component of acute pancreatitis superimposed on chronic calcific panc reatitis. Wall thickening of the duodenum could represent duodenitis or peptic ulcer disease rather than pancre atitis. Signer Name: Tarun Rodriguez MD Signed: 10/25/2019 4:20 PM Workstation Name: [id number]
[2019-10-25] MEDS ORDERED: THIAMINE 100 MG TAB ONE (16:53)
[2019-10-25] MEDS ORDERED: chlordiazePOXIDE 25 MG CAP ONE (16:54)
[2019-10-25] MEDS ORDERED: FOLIC ACID 1 MG, MULTIPLE VITAMIN INJ, ADULT 10 ML in SODIUM CHLORIDE 0.9% 1000 ML 1,00... IV ONE (17:00)
[2019-10-25] MEDS ORDERED: THIAMINE 100 MG TAB PO ONE (17:00)
[2019-10-25] MEDS: chlordiazePOXIDE 25 MG CAP PO SCH ×2 (17:06→22:08)
[2019-10-25] MEDS ORDERED: cefTRIAXone/NS 1 GM/50 ML 1 GM/50 ML BAG IV ONE (18:25)
[2019-10-25] MEDS: cefTRIAXone/NS 1 GM/50 ML 1 GM/50 ML BAG IV SCH (18:30)
[2019-10-25 20:32] LABS: Creatinine,Urine 170.7 mg/dL (0.1-20.0)
[2019-10-25] MEDS ORDERED: INDOMETHACIN 25 MG CAP PO SCH (22:00)
[2019-10-25] MEDS: LORazepam 2 MG/ML VIAL IV PRN (22:07)
[2019-10-25] MEDS: HEPARIN 5,000 UNIT/1 ML VIAL SUB-Q SCH (22:07)
[2019-10-25] MEDS: ONDANSETRON 4 MG/2 ML INJ IV PRN (22:07)
[2019-10-25] MEDS: PANTOPRAZOLE 40 MG TAB PO SCH (22:08)
[2019-10-25] MEDS: allopurinoL 100 MG TAB PO SCH (22:09)
[2019-10-25] MEDS: ACETAMINOPHEN 325 MG TAB PO PRN (22:20)
[2019-10-26 05:03] LABS: Albumin 3.2 g/dL (3.9-5); Calcium 9.2 mg/dL (8.4-10.2)
[2019-10-26] MEDS: ACETAMINOPHEN 325 MG TAB PO PRN (05:28)
[2019-10-26] MEDS: chlordiazePOXIDE 25 MG CAP PO SCH ×3 (05:28→22:33)
--- NOTE | 2019-10-26 08:44 | Ultrasound Report ---
ULTRASOUND RENAL INDICATION / CLINICAL INFORMATION: Acute kidney injury. COMPARISON: CT scan from yesterday FINDINGS: RIGHT KIDNEY: Length = 8.6 cm. - Echogenicity: Normal. - Cortical Thickness: Normal. - Hydronephrosis: None. - Cyst or mass: No significant abnormality. - Stones: 7 mm length echogenic focus in a nondilated calyx of the interpolar region without associat ed shadowing or color comet tail artifact. LEFT KIDNEY: Length = 10.6 cm. - Echogenicity: Normal. - Cortical Thickness: Normal. - Hydronephrosis: None. - Cyst or mass: No significant abnormality. - Stones: 6 mm linear echogenic focus in a nondilated upper pole calyx URINARY BLADDER: No significant abnormality. FREE FLUID: None. ADDITIONAL FINDINGS: None. IMPRESSION: 1. A 7 mm echogenic focus in the right kidney correlates with a small stone seen on yesterday's CT sc an. 2. Indeterminate 6 mm echogenic focus in the left kidney without CT correlate. 3. No hydronephrosis. Signer Name: Erich Garcia MD Signed: 10/26/2019 8:39 AM Workstation Name: [id number]
[2019-10-26] MEDS: FOLIC ACID 1 MG TAB PO SCH (09:10)
[2019-10-26] MEDS: PANTOPRAZOLE 40 MG TAB PO SCH (09:10)
[2019-10-26] MEDS: amLODIPine 5 MG TAB PO SCH (09:10)
--- NOTE | 2019-10-26 09:10 | Progress Note ---
Assessment and Plan Assessment and plan: 59 YO Male with HTN, OA, HLD, ETOH Dependence, ETOH Pancreatitis, Esophagitis, Gout presents to ED for evaluation. Patient states that he has "been feeling sick" over the past 5 days with persistent symptoms over the same timeframe Patient states that he has experienced abdominal cramping accompanied by nausea and multiple episodes of vomiting, generalized weakness, fatigue. Patient states that his last drink of alcohol was approximately 2 days ago. EMS was notified and upon arrival the patient was found to be in distress and subsequently transported to [facility] for further evaluation and care. Patient seen and evaluated in the emergency department. Lab and imaging studies reviewed. * CT scan of the abdomen and pelvis which is consistent with chronic pancreatitis suspected secondary to alcohol use, * patient was also found to have a urinary tract infection, as well as acute kidney injury. * Patient admitted to medical floor due to increased risk of decompensation. Patient treated with IV fluid resuscitation therapy, and initiated on CIWA protocol. * Patient was also initiated on IV antibiotic therapy for urinary tract infection. Patient has experienced intermittent episodes of increased lethargy while in the emergency department which is consistent with alcoholic encephalopathy. 10/25: Patient this morning still lethargic renal function showing some improvement. While he does not endorse depression he tells me that the reason he has now quit smoking and drinking is because he is alone and does not know what to do. I revised I reviewed my prior discussion with him considering his severe LA grade IV esophagitis and duodenitis based on prior visit he verbalized understanding. We will continue with current management will recommend outpatient mental health evaluation as he has to also take initiated for his care. We will continue CIWA protocol replace electrolytes as needed and pain control he does have underlying pancreatitis which is chronic. His UTI appears to be more of pyuria he does not have any evidence of infection we will continue to monitor and discontinue antibiotics in a.m. we will also continue PPI at this time. Anticipate possible discharge in a.m. plan discussed with the patient and nursing staff at bedside Acute on chronic pancreatitis secondary to EtOH Type II SC in relation to acute renal failure EtOH dependency Persistent hypokalemia Acute Renal Failure secondary to vasomotor nephropathy Pyuria doubt acute cystitis Dysphasia Severe, LA Grade IV, esophagitis Duodenitis. Biopsied History Interval history: Patient seen and examined awake alert oriented but still tremulous. Verbalized understanding that he continues to drink question underlining depression denies any suicidal ideation Hospitalist Physical - Physical exam Narrative exam: VITAL SIGNS: Reviewed. GENERAL: The patient appears normally developed, disheveled vital signs as documented. HEAD: No signs of head trauma. EYES: Pupils are equal. Extraocular motions intact. EARS: Hearing grossly intact. MOUTH: Oropharynx is normal. NECK: No adenopathy, no JVD. CHEST: Chest with diminished breath sounds bilaterally. No wheezes, rales, or rhonchi. CARDIAC: Regular rate and rhythm. S1 and S2, without murmurs, gallops, or rubs. VASCULAR: No Edema. Peripheral pulses normal and equal in all extremities. ABDOMEN: Soft, non tender and non distended. No rebound or guarding, and no masses palpated. Bowel Sounds normal. MUSCULOSKELETAL: Good range of motion of all major joints. Extremities without clubbing, cyanosis or edema. NEUROLOGIC EXAM: Awake, lethargic oriented x3 no focal sensory or strength deficits. Speech normal. Follows commands. PSYCHIATRIC: Mood normal. SKIN: detial exam as documented in skin assessment - Constitutional Vitals: Temp Pulse Resp BP Pulse Ox 98.6 F 80 18 139/92 100 10/26/19 07:29 10/26/19 07:29 10/26/19 07:29 10/26/19 07:29 10/26/19 07:29 General appearance: Present: mild distress, disheveled Results - Labs CBC & Chem 7: 10/25/19 13:40 10/26/19 03:53 Labs: Laboratory Last Values WBC 10.6 K/mm3 (4.5-11.0) 10/25/19 13:40 RBC 5.27 M/mm3 (3.65-5.03) H 10/25/19 13:40 Hgb 12.7 gm/dl (11.8-15.2) 10/25/19 13:40 Hct 39.3 % (35.5-45.6) 10/25/19 13:40 MCV 75 fl (84-94) L 10/25/19 13:40 MCH 24 pg (28-32) L 10/25/19 13:40 MCHC 32 % (32-34) 10/25/19 13:40 RDW 20.6 % (13.2-15.2) H 10/25/19 13:40 Plt Count 402 K/mm3 (140-440) 10/25/19 13:40 Lymph % (Auto) 11.2 % (13.4-35.0) L 10/25/19 13:40 [place] % (Auto) 13.4 % (0.0-7.3) H 10/25/19 13:40 Eos % (Auto) 0.6 % (0.0-4.3) 10/25/19 13:40 Baso % (Auto) 0.4 % (0.0-1.8) 10/25/19 13:40 Lymph # 1.2 K/mm3 (1.2-5.4) 10/25/19 13:40 [place] # 1.4 K/mm3 (0.0-0.8) H 10/25/19 13:40 Eos # 0.1 K/mm3 (0.0-0.4) 10/25/19 13:40 Baso # 0.0 K/mm3 (0.0-0.1) 10/25/19 13:40 Seg Neutrophils % 74.4 % (40.0-70.0) H 10/25/19 13:40 Seg Neutrophils # 7.9 K/mm3 (1.8-7.7) H 10/25/19 13:40 PT 13.5 Sec. (12.2-14.9) 10/25/19 13:40 INR 1.05 (0.87-1.13) 10/25/19 13:40 Sodium 137 mmol/L (137-145) 10/26/19 03:53 Potassium 3.3 mmol/L (3.6-5.0) L 10/26/19 03:53 Chloride 94.9 mmol/L (98-107) L 10/26/19 03:53 Carbon Dioxide 25 mmol/L (22-30) 10/26/19 03:53 Anion Gap 20 mmol/L 10/26/19 03:53 BUN 37 mg/dL (9-20) H 10/26/19 03:53 Creatinine 2.3 mg/dL (0.8-1.5) H D 10/26/19 03:53 Estimated GFR 35 ml/min 10/26/19 03:53 BUN/Creatinine Ratio 16 % 10/26/19 03:53 Glucose 84 mg/dL (75-100) 10/26/19 03:53 Lactic Acid 1.60 mmol/L (0.7-2.0) 10/25/19 13:40 Calcium 9.2 mg/dL (8.4-10.2) 10/26/19 03:53 Phosphorus 2.80 mg/dL (2.5-4.5) 10/26/19 03:53 Magnesium 2.10 mg/dL (1.7-2.3) 10/25/19 13:40 Total Bilirubin 0.30 mg/dL (0.1-1.2) 10/26/19 03:53 AST 23 units/L (5-40) 10/26/19 03:53 ALT 6 units/L (7-56) L 10/26/19 03:53 Alkaline Phosphatase 92 units/L (35-129) 10/26/19 03:53 Total Creatine Kinase 32 units/L (55-170) L 10/25/19 13:40 Troponin T 0.041 ng/mL (0.00-0.029) H 10/25/19 13:40 Total Protein 7.0 g/dL (6.3-8.2) 10/26/19 03:53 Albumin 3.2 g/dL (3.9-5) L 10/26/19 03:53 Albumin/Globulin Ratio 0.8 % 10/26/19 03:53 Triglycerides 196 mg/dL (2-149) H 10/25/19 13:40 Cholesterol 137 mg/dL (50-199) 10/25/19 13:40 LDL Cholesterol Direct 58 mg/dL (50-130) 10/25/19 13:40 HDL Cholesterol 41 mg/dL (40-59) 10/25/19 13:40 Cholesterol/HDL Ratio 3.34 % 10/25/19 13:40 Lipase 141 units/L (13-60) H 10/25/19 13:40 Urine Color Yellow (Yellow) 10/25/19 15:26 Urine Turbidity Cloudy (Clear) 10/25/19 15:26 Urine pH 6.0 (5.0-7.0) 10/25/19 15:26 Ur Specific [place] 1.017 (1.003-1.030) 10/25/19 15:26 Urine Protein 30 mg/dl mg/dL (Negative) 10/25/19 15:26 Urine Glucose (UA) 150 mg/dL (Negative) 10/25/19 15: Urine Ketones Neg mg/dL (Negative) 10/25/19 15: Urine Blood Sm (Negative) 10/25/19 15: Urine Nitrite Neg (Negative) 10/25/19 15: Urine Bilirubin Neg (Negative) 10/25/19 15: Urine Urobilinogen 2.0 mg/dL (<2.0) 10/25/19 15: Ur Leukocyte Esterase Lg (Negative) 10/25/19 15: Urine WBC (Auto) > 182.0 /HPF (0.0-6.0) H 10/25/19 15: Urine RBC (Auto) 5.0 /HPF (0.0-6.0) 10/25/19 15: U Epithel Cells (Auto) 2.0 /HPF (0-13.0) 10/25/19 15: Urine Bacteria (Auto) 1+ /HPF (Negative) 10/25/19 15: Urine Mucus Few /HPF 10/25/19 15: Urine Yeast (Budding) 2+ /HPF 10/25/19 15: Urine Sperm Few /HPF (VENEER MATCHER) 10/25/19 15: Urine Creatinine 170.7 mg/dL (0.1-20.0) H 10/25/19 Unknown Urine Sodium 88 mmol/L 10/25/19 Unknown Salicylates 3.7 mg/dL (2.8-20.0) 10/25/19 13:40 Acetaminophen < 5.0 ug/mL (10.0-30.0) L 10/25/19 13:40 Plasma/Serum Alcohol < 0.01 % (0-0.07) 10/25/19 13:40 Microbiology: Microbiology 10/25/19 Unknown Stool Stool Occult Blood (LUCERO) - Final Viramontes/IV: IV Catheter Type [Right INT / Saline Lock Antecubital] Active Medications - Current Medications Current Medications: Generic Name Dose Route Start Last Admin Trade Name Freq PRN Reason Stop Dose Admin Acetaminophen 650 mg 10/25/19 15:38 10/26/19 05:28 Tylenol PO 650 mg Q4H PRN Administration Pain MILD(1-3)/Fever >100.5/[place] Allopurinol 100 mg 10/25/19 22:00 10/25/19 22:09 Zyloprim PO 100 mg BID JANNETH Administration Amlodipine Besylate 5 mg 10/26/19 10:00 Amlodipine PO DAILY [facility] Atorvastatin Calcium 40 mg 10/25/19 22:00 10/25/19 22:08 Lipitor PO 40 mg QHS JANNETH Administration Chlordiazepoxide HCl 25 mg 10/25/19 16:00 10/26/19 05:28 Librium PO 25 mg Q8HR JANNETH Administration Folic Acid 1 mg 10/26/19 10:00 Folvite PO QDAY [facility] Heparin Sodium (Porcine) 5,000 unit 10/25/19 22:00 10/25/19 22:07 Heparin SUB-Q 5,000 unit Q12HR JANNETH Administration Sodium Chloride 1,000 mls @ 125 mls/hr 10/25/19 15:45 10/26/19 06:19 Nacl 0.9% 1000 Ml IV 125 mls/hr DIRECT JANNETH Administration Ceftriaxone Sodium 1 gm in 50 mls @ 100 mls/hr 10/25/19 18:00 10/25/19 18:30 Rocephin/Ns 1 Gm/50 Ml IV 100 mls/hr Q24H JANNETH Administration Protocol Lorazepam 2 mg 10/25/19 12:50 10/25/19 22:07 Ativan IV 2 mg Q1HR PRN Administration CIWA-Ar 8-15 Lorazepam 4 mg 10/25/19 12:50 Ativan IV Q1HR PRN CIWA-Ar 16-25 Lorazepam 4 mg 10/25/19 12:50 Ativan IV Q15MIN PRN CIWA-Ar >25 Ondansetron HCl 4 mg 10/25/19 15:38 10/25/19 22:07 Zofran IV 4 mg Q8H PRN Administration Nausea And Vomiting Pantoprazole Sodium 40 mg 10/25/19 22:00 10/25/19 22:08 Protonix PO 40 mg BID JANNETH Administration Sodium Chloride 10 ml 10/25/19 22:00 10/25/19 22:09 Sodium Chloride Flush Syringe 10 Ml IV 10 ml BID JANNETH Administration Sodium Chloride 10 ml 10/25/19 15:38 Sodium Chloride Flush Syringe 10 Ml IV PRN PRN LINE FLUSH Thiamine HCl 100 mg 10/26/19 10:00 Vitamin B-1 PO QDAY [facility]
[2019-10-26] MEDS: THIAMINE 100 MG TAB PO SCH (09:11)
[2019-10-26] MEDS: HEPARIN 5,000 UNIT/1 ML VIAL SUB-Q SCH ×2 (09:11→22:33)
[2019-10-26] MEDS: allopurinoL 100 MG TAB PO SCH ×2 (09:22→22:33)
--- NOTE | 2019-10-26 09:32 | Consultation ---
History of Present Illness - Reason for Consult Consult date: 10/26/19 acute renal failure - History of Present Illness This is a 59 year old male patient with pmh significant for HTN, OA, HLD, ETOH Dependence, ETOH Pancreatitis, Esophagitis, Gout who presented to the ED with complaints of persistent abdominal cramping, nausea, vomiting, weakness, and fatigue over past five days. Last alcoholic drink was approximately 2 days prior to ED visit. CT scan of abd/pelvis consistent with chronic pancreatitis likely in setting of alcohol abuse. In addition, pt found to have urinary tract infection and JOHN. Upon chart review of prior ED visits, it appears pt baseline creatinine is less than 1.0. He denies h/o kidney disease, hematuria, pain or burning with urination, dysuria. He states he smokes approximately 1 pack of cigarettes per day. He was placed on CIWA protocol and abx for UTI. He denies fever, chills, chest pain, cough, rash, shortness of breath, diarrhea. Renal US negative for hydro, showed stone in bilateral kidneys. Labs on admission significant for potassium 3.2, BUN 45, creatinine 5.8, troponin 0.041, active UA. Labs at time of consultation significant for potassium 3.3, BUN 37, creatinine 2.3, albumin 3.2. Nephrology was consulted for further evaluation and treatment. Past History Past Medical History: arthritis, hypertension, hyperlipidemia, other (See HPI) Past Surgical History: No surgical history, Other (Reviewed) Social history: single, alcohol abuse Family history: hypertension Medications and Allergies Allergies Allergy/AdvReac Type Severity Reaction Status Date / Time No Known Allergies Allergy Verified 10/25/19 12:42 Home Medications Medication Instructions Recorded Confirmed Last Taken Type Indomethacin 50 mg PO Q8H 04/19/16 04/19/16 Unknown History Folic Acid [Folvite] 1 mg PO QDAY #30 tablet 04/23/16 Unknown Rx Thiamine [Vitamin B-1] 100 mg PO QDAY #30 tablet 04/23/16 Unknown Rx allopurinoL [Zyloprim] 100 mg PO BID #60 tablet 04/23/16 Unknown Rx amLODIPine 5 mg PO DAILY #30 tab 04/23/16 Unknown Rx chlordiazePOXIDE [Librium] 25 mg PO Q8H #30 capsule 04/23/16 Unknown Rx AtorvaSTATin [Lipitor] 40 mg PO QHS #30 tablet 07/24/19 Unknown Rx Pantoprazole [Protonix TAB] 40 mg PO BID #60 tablet 07/24/19 Unknown Rx Active Meds: Active Medications Acetaminophen (Tylenol) 650 mg PO Q4H PRN PRN Reason: Pain MILD(1-3)/Fever >100.5/[place] Last Admin: 10/26/19 05:28 Dose: 650 mg Documented by: Allopurinol (Zyloprim) 100 mg PO BID [facility] Last Admin: 10/26/19 09:22 Dose: 100 mg Documented by: Amlodipine Besylate (Amlodipine) 5 mg PO DAILY [facility] Last Admin: 10/26/19 09:10 Dose: 5 mg Documented by: Atorvastatin Calcium (Lipitor) 40 mg PO QHS [facility] Last Admin: 10/25/19 22:08 Dose: 40 mg Documented by: Chlordiazepoxide HCl (Librium) 25 mg PO Q8HR [facility] Last Admin: 10/26/19 05:28 Dose: 25 mg Documented by: Folic Acid (Folvite) 1 mg PO QDAY [facility] Last Admin: 10/26/19 09:10 Dose: 1 mg Documented by: Heparin Sodium (Porcine) (Heparin) 5,000 unit SUB-Q Q12HR [facility] Last Admin: 10/26/19 09:11 Dose: 5,000 unit Documented by: Sodium Chloride (Nacl 0.9% 1000 Ml) 1,000 mls @ 125 mls/hr IV DIRECT [facility] Last Admin: 10/26/19 06:19 Dose: 125 mls/hr Documented by: Ceftriaxone Sodium (Rocephin/Ns 1 Gm/50 Ml) 1 gm in 50 mls @ 100 mls/hr IV Q24H [facility]; Protocol Last Admin: 10/25/19 18:30 Dose: 100 mls/hr Documented by: Lorazepam (Ativan) 2 mg IV Q1HR PRN PRN Reason: CIWA-Ar 8-15 Last Admin: 10/25/19 22:07 Dose: 2 mg Documented by: Lorazepam (Ativan) 4 mg IV Q1HR PRN PRN Reason: CIWA-Ar 16-25 Lorazepam (Ativan) 4 mg IV Q15MIN PRN PRN Reason: CIWA-Ar >25 Ondansetron HCl (Zofran) 4 mg IV Q8H PRN PRN Reason: Nausea And Vomiting Last Admin: 10/25/19 22:07 Dose: 4 mg Documented by: Pantoprazole Sodium (Protonix) 40 mg PO BID [facility] Last Admin: 10/26/19 09:10 Dose: 40 mg Documented by: Sodium Chloride (Sodium Chloride Flush Syringe 10 Ml) 10 ml IV BID [facility] Last Admin: 10/26/19 09:11 Dose: 10 ml Documented by: Sodium Chloride (Sodium Chloride Flush Syringe 10 Ml) 10 ml IV PRN PRN PRN Reason: LINE FLUSH Thiamine HCl (Vitamin B-1) 100 mg PO QDAY [facility] Last Admin: 10/26/19 09:11 Dose: 100 mg Documented by: Review of Systems Constitutional: weakness, lethargy, poor appetite, no weight loss, no weight gain, no fever, no chills Ears, nose, mouth and throat: no nasal discharge, no epistaxis Cardiovascular: no chest pain, no lightheadedness, no shortness of breath Respiratory: no cough, no shortness of breath Gastrointestinal: nausea, vomiting, no diarrhea Musculoskeletal: muscle weakness Integumentary: no rash, no pruritis, no sores, no wounds Exam - Vital Signs Vital signs: Vital Signs Pulse Resp 99 H 14 10/25/19 12:38 10/25/19 12:38 - Physical Exam Narrative exam: General appearance: well-developed, well-nourished, appears stated age, unkept EENT: ATNC, PERRL, mucous membranes dry, hearing intact, vision intact Neck: Present: neck supple, trachea midline Respiratory: Clear to Ascultation Heart: regular, normal heart rate, S1S2, no murmurs Gastrointestinal: Present: normal, normoactive bowel sounds, obese. Absent: tenderness, distended, masses Integumentary: no rash, warm and dry Neurologic: no focal deficit, no asterixis, lethargic but will wake to verbal stimuli briefly Musculoskeletal: no deformity, no clubbing Psychiatric: mood/affect appropriate, speech is coherent Results - Lab Results 10/25/19 13:40 10/26/19 03:53 Most recent lab results Calcium 9.2 mg/dL (8.4-10.2) 10/26/19 03:53 Phosphorus 2.80 mg/dL (2.5-4.5) 10/26/19 03:53 Magnesium 2.10 mg/dL (1.7-2.3) 10/25/19 13:40 Urine Creatinine 170.7 mg/dL (0.1-20.0) H 10/25/19 Unknown Urine Sodium 88 mmol/L 10/25/19 Unknown Assessment and Plan 1. Acute kidney injury: Vasomotor JOHN in the setting of volume depletion. Renal US negative for hydro, revealed bilateral renal cyst. Creatinine has improved from admission, 2.3 from 5.8. Continue IV fluids. Monitor renal function. Renal prognosis is guarded. Avoid nephrotoxic agents. Meds dosage based on GFR. 2. FEN: Hypokalemia, replete K, monitor. Monitor lytes and volume status. 3. Acute on chronic pancreatitis: 2/2 alcohol abuse. Nausea and vomiting improving. S/p multivitamin infusion. 4. Alcoholic encephalopathy: Remains lethargic at time of consultation. Monitor mental status. 5. Elevated troponins: Likely 2/2 JOHN. Cards consulted. 6. Alcohol dependence: On CIWA protocol. 7. Pyuria: 8. Dysphagia: H/o LA Grade IV esophagitis, duodenitis via biopsy. GI f/u outpatient. On PPI. 9. Hypertension: BP controlled at tiem of exam. Monitor BP. 10. Hyperlipidemia:
--- NOTE | 2019-10-26 10:40 | Consultation ---
History of Present Illness Consult date: 10/26/19 Consult reason: chest pain History of present illness: This is a 59-year old male who presents with abdominal pain, nausea and vomiting followed with chest pain. Initial labs showed renal insufficiency with a creatinine of 5.8 and a potassium at 3.3. Lipase of 141. Troponin T measured 0.041. A cardiac consultation has been requested for further evaluation. Patient denies unusual shortness of breath. There is no lower extremity edema. Patient reports a history of hypertension, severe ulcerative esophagitis, duodenitis, pancreatitis, ETOH abuse, and tobacco dependency. No prior cardiac history. No prior cardiac workup. An ECG is sinus rhythm with left anterior fascicular block. No acute ischemic changes. Chest x-ray is negative. Past History Social history: single, smoking, alcohol abuse Family history: hypertension Medications and Allergies Allergies Allergy/AdvReac Type Severity Reaction Status Date / Time No Known Allergies Allergy Verified 10/25/19 12:42 Home Medications Medication Instructions Recorded Confirmed Last Taken Type Indomethacin 50 mg PO Q8H 04/19/16 04/19/16 Unknown History Folic Acid [Folvite] 1 mg PO QDAY #30 tablet 04/23/16 Unknown Rx Thiamine [Vitamin B-1] 100 mg PO QDAY #30 tablet 04/23/16 Unknown Rx allopurinoL [Zyloprim] 100 mg PO BID #60 tablet 04/23/16 Unknown Rx amLODIPine 5 mg PO DAILY #30 tab 04/23/16 Unknown Rx chlordiazePOXIDE [Librium] 25 mg PO Q8H #30 capsule 04/23/16 Unknown Rx AtorvaSTATin [Lipitor] 40 mg PO QHS #30 tablet 07/24/19 Unknown Rx Pantoprazole [Protonix TAB] 40 mg PO BID #60 tablet 07/24/19 Unknown Rx Active Meds: Active Medications Acetaminophen (Tylenol) 650 mg PO Q4H PRN PRN Reason: Pain MILD(1-3)/Fever >100.5/[place] Last Admin: 10/26/19 05:28 Dose: 650 mg Documented by: Allopurinol (Zyloprim) 100 mg PO BID [facility] Last Admin: 10/26/19 09:22 Dose: 100 mg Documented by: Amlodipine Besylate (Amlodipine) 5 mg PO DAILY [facility] Last Admin: 10/26/19 09:10 Dose: 5 mg Documented by: Atorvastatin Calcium (Lipitor) 40 mg PO QHS [facility] Last Admin: 10/25/19 22:08 Dose: 40 mg Documented by: Chlordiazepoxide HCl (Librium) 25 mg PO Q8HR [facility] Last Admin: 10/26/19 05:28 Dose: 25 mg Documented by: Folic Acid (Folvite) 1 mg PO QDAY [facility] Last Admin: 10/26/19 09:10 Dose: 1 mg Documented by: Heparin Sodium (Porcine) (Heparin) 5,000 unit SUB-Q Q12HR [facility] Last Admin: 10/26/19 09:11 Dose: 5,000 unit Documented by: Sodium Chloride (Nacl 0.9% 1000 Ml) 1,000 mls @ 125 mls/hr IV DIRECT [facility] Last Admin: 10/26/19 06:19 Dose: 125 mls/hr Documented by: Ceftriaxone Sodium (Rocephin/Ns 1 Gm/50 Ml) 1 gm in 50 mls @ 100 mls/hr IV Q24H [facility]; Protocol Last Admin: 10/25/19 18:30 Dose: 100 mls/hr Documented by: Lorazepam (Ativan) 2 mg IV Q1HR PRN PRN Reason: CIWA-Ar 8-15 Last Admin: 10/25/19 22:07 Dose: 2 mg Documented by: Lorazepam (Ativan) 4 mg IV Q1HR PRN PRN Reason: CIWA-Ar 16-25 Lorazepam (Ativan) 4 mg IV Q15MIN PRN PRN Reason: CIWA-Ar >25 Ondansetron HCl (Zofran) 4 mg IV Q8H PRN PRN Reason: Nausea And Vomiting Last Admin: 10/25/19 22:07 Dose: 4 mg Documented by: Pantoprazole Sodium (Protonix) 40 mg PO BID [facility] Last Admin: 10/26/19 09:10 Dose: 40 mg Documented by: Sodium Chloride (Sodium Chloride Flush Syringe 10 Ml) 10 ml IV BID [facility] Last Admin: 10/26/19 09:11 Dose: 10 ml Documented by: Sodium Chloride (Sodium Chloride Flush Syringe 10 Ml) 10 ml IV PRN PRN PRN Reason: LINE FLUSH Thiamine HCl (Vitamin B-1) 100 mg PO QDAY [facility] Last Admin: 10/26/19 09:11 Dose: 100 mg Documented by: Physical Examination Vital Signs Pulse Resp 99 H 14 10/25/19 12:38 10/25/19 12:38 General appearance: no acute distress HEENT: Positive: PERRL Cardiac: Positive: Reg Rate and Rhythm Neuro: Positive: Grossly Intact Extremities: Absent: edema Results 10/25/19 13:40 10/26/19 03:53 Cardiac Enzymes 10/25/19 10/26/19 Range/Units 13:40 03:53 AST 14 23 (5-40) units/L Coagulation 10/25/19 Range/Units 13:40 PT 13.5 (12.2-14.9) Sec. INR 1.05 (0.87-1.13) Lipids 10/25/19 Range/Units 13:40 Triglycerides 196 H (2-149) mg/dL Cholesterol 137 (50-199) mg/dL HDL Cholesterol 41 (40-59) mg/dL Cholesterol/HDL Ratio 3.34 % CBC 10/25/19 Range/Units 13:40 WBC 10.6 (4.5-11.0) K/mm3 RBC 5.27 H (3.65-5.03) M/mm3 Hgb 12.7 (11.8-15.2) gm/dl Hct 39.3 (35.5-45.6) % Plt Count 402 (140-440) K/mm3 Lymph # 1.2 (1.2-5.4) K/mm3 Swisher # 1.4 H (0.0-0.8) K/mm3 Eos # 0.1 (0.0-0.4) K/mm3 Baso # 0.0 (0.0-0.1) K/mm3 Comprehensive Metabolic Panel 10/25/19 10/26/19 Range/Units 13:40 03:53 Sodium 138 137 (137-145) mmol/L Potassium 3.2 L 3.3 L (3.6-5.0) mmol/L Chloride 89.5 L 94.9 L (98-107) mmol/L Carbon Dioxide 27 25 (22-30) mmol/L BUN 45 H 37 H (9-20) mg/dL Creatinine 5.8 H 2.3 H D (0.8-1.5) mg/dL Glucose 105 H 84 (75-100) mg/dL Calcium 9.7 9.2 (8.4-10.2) mg/dL AST 14 23 (5-40) units/L ALT 6 L 6 L (7-56) units/L Alkaline Phosphatase 117 92 (35-129) units/L Total Protein 7.7 7.0 (6.3-8.2) g/dL Albumin 3.9 3.2 L (3.9-5) g/dL
[2019-10-26] MEDS ORDERED: MAGNESIUM SULFATE 1 GM in SODIUM CHLORIDE 0.9% 50 ML IV ONE (14:41)
[2019-10-26] MEDS ORDERED: POTASSIUM CHLORIDE ER 20 MEQ TAB PO ONE (14:41)
[2019-10-26] MEDS ORDERED: PANTOPRAZOLE 40 MG INJ IV SCH (18:30)
[2019-10-26] MEDS: PANTOPRAZOLE 40 MG INJ IV SCH (18:45)
[2019-10-26] MEDS: MORPHINE 2 MG/1 ML INJ IV PRN (18:45)
[2019-10-26] MEDS: ONDANSETRON 4 MG/2 ML INJ IV PRN (18:46)
[2019-10-26] MEDS: LORazepam 2 MG/ML VIAL IV PRN (22:45)
[2019-10-26] MEDS: cefTRIAXone/NS 1 GM/50 ML 1 GM/50 ML BAG IV SCH (22:51)
[2019-10-26] MEDS ORDERED: hydrALAZINE 20 MG/1 ML INJ IV PRN (23:56)
[2019-10-27] MEDS: MORPHINE 2 MG/1 ML INJ IV PRN (00:31)
[2019-10-27 04:37] LABS: Hematocrit 32.9 % (35.5-45.6); Hemoglobin 10.6 gm/dl (11.8-15.2); Mean Corpuscular HGB Conc 32 % (32-34); Mean Corpuscular Volume 74 fl (84-94); Platelet Count 361 K/mm3 (140-440); Red Blood Count 4.42 M/mm3 (3.65-5.03)
[2019-10-27 04:53] LABS: BUN/Creatinine Ratio 31; Blood Urea Nitrogen 25 mg/dL (9-20); Calcium 9.2 mg/dL (8.4-10.2); Hemolysis Index 1
[2019-10-27] MEDS: chlordiazePOXIDE 25 MG CAP PO SCH ×2 (06:19→16:36)
[2019-10-27] MEDS ORDERED: POTASSIUM CHLORIDE ER 20 MEQ TAB PO SCH (08:00)
--- NOTE | 2019-10-27 08:03 | Discharge Summary ---
Providers - Providers Date of Admission: 10/25/19 15:38 Attending physician: REYES GREENBERG MD 10/25/19 19:35 Consult to Physician [CONS] Routine Comment: Consulting Provider: EDITA PEARSON Physician Instructions: Reason For Exam: ninfa 10/26/19 09:07 Consult to Physician [CONS] Routine Comment: Consulting Provider: SUDHA JASSO Physician Instructions: Reason For Exam: type 2 CO 10/26/19 11:32 Occupational Therapy Evaluate and Treat [CONS] Routine Comment: Reason For Exam: DEBILTY Physical Therapy Evaluation and Treat [CONS] Routine Comment: Reason For Exam: DEBILITY Primary care physician: [employer] Hospitalization Reason for admission: Alcohol withdrawal Condition: Stable Hospital course: 59 YO Male with HTN, OA, HLD, ETOH Dependence, ETOH Pancreatitis, Esophagitis, Gout presents to ED for evaluation. Patient states that he has "been feeling sick" over the past 5 days with persistent symptoms over the same timeframe Patient states that he has experienced abdominal cramping accompanied by nausea and multiple episodes of vomiting, generalized weakness, fatigue. Patient states that his last drink of alcohol was approximately 2 days ago. EMS was notified and upon arrival the patient was found to be in distress and subsequently transported to [facility] for further evaluation and care. Patient seen and evaluated in the emergency department. Lab and imaging studies reviewed. * CT scan of the abdomen and pelvis which is consistent with chronic pancreatitis suspected secondary to alcohol use, * patient was also found to have a urinary tract infection, as well as acute kidney injury. * Patient admitted to medical floor due to increased risk of decompensation. Patient treated with IV fluid resuscitation therapy, and initiated on CIWA protocol. * Patient was also initiated on IV antibiotic therapy for urinary tract infection. Patient has experienced intermittent episodes of increased lethargy while in the emergency department which is consistent with alcoholic encephalopathy. 10/25: Patient this morning still lethargic renal function showing some improvement. While he does not endorse depression he tells me that the reason he has now quit smoking and drinking is because he is alone and does not know what to do. I revised I reviewed my prior discussion with him considering his severe LA grade IV esophagitis and duodenitis based on prior visit he verbalized understanding. We will continue with current management will recommend outpatient mental health evaluation as he has to also take initiated for his care. We will continue CIWA protocol replace electrolytes as needed and pain control he does have underlying pancreatitis which is chronic. His UTI appears to be more of pyuria he does not have any evidence of infection we will continue to monitor and discontinue antibiotics in a.m. we will also continue PPI at this time. Anticipate possible discharge in a.m. plan discussed with the patient and nursing staff at bedside 10/26: No active withdrawal, did have mildly elevated BP, given BP meds, on admission was hypotensive, could be effect of ETOH, patient non complaint. will recommend bp diary on discharge and will give low dose ANTI HYPERTENSIVE. STRONGLY ENCOURAGE ENROLLING IN AA Acute on chronic pancreatitis secondary to EtOH Type II CO in relation to acute renal failure EtOH dependency Persistent hypokalemia Acute Renal Failure secondary to vasomotor nephropathy Acute cystitis secondary to GNR No evidence of sepsis Dysphasia Severe, LA Grade IV, esophagitis Duodenitis. Biopsied Chronic pain syndrome Disposition: TO HOME OR SELFCARE Time spent for discharge: 35-minute Core Measure Documentation - Palliative Care Palliative Care/ Comfort Measures: Not Applicable - Core Measures Any of the following diagnoses?: none Exam - Physical Exam Narrative exam: VITAL SIGNS: Reviewed. GENERAL: The patient appears normally developed, disheveled vital signs as documented. HEAD: No signs of head trauma. EYES: Pupils are equal. Extraocular motions intact. EARS: Hearing grossly intact. MOUTH: Oropharynx is normal. NECK: No adenopathy, no JVD. CHEST: Chest with diminished breath sounds bilaterally. No wheezes, rales, or rhonchi. CARDIAC: Regular rate and rhythm. S1 and S2, without murmurs, gallops, or rubs. VASCULAR: No Edema. Peripheral pulses normal and equal in all extremities. ABDOMEN: Soft, non tender and non distended. No rebound or guarding, and no masses palpated. Bowel Sounds normal. MUSCULOSKELETAL: Good range of motion of all major joints. Extremities without clubbing, cyanosis or edema. NEUROLOGIC EXAM: Awake, oriented x3 no focal sensory or strength deficits. Speech normal. Follows commands. PSYCHIATRIC: Mood normal. SKIN: detial exam as documented in skin assessment - Constitutional Vitals: Temp Pulse Resp BP Pulse Ox 97.8 F 86 16 121/61 100 10/27/19 04:56 10/27/19 04:09 10/27/19 04:09 10/27/19 04:09 10/27/19 04:09 Plan Activity: advance as tolerated, fall precautions Diet: low fat Special Instructions: record daily BP diary, other (must enroll in an alcholic recovery program) Follow up with: PRIMARY CARE, [Primary Care Provider] - 3-[address] [facility] [Outside] - 7 Days [facility] [Provider Group] - 7 Days Prescriptions: amLODIPine 5 mg PO DAILY #30 tab Dicyclomine [Bentyl] 10 mg PO QID #30 capsule Lipase/Protease/Amylase [Karen Au 6,000 Units Capsule] 1 each PO DAILY #30 capsule. Folic Acid [Folvite] 1 mg PO QDAY #30 tablet levoFLOXacin [Levaquin TAB] 500 mg PO QDAY #3 tablet chlordiazePOXIDE [Librium] 5 mg PO Q8H #30 capsule Pantoprazole [Protonix TAB] 40 mg PO BID #60 tablet Thiamine [Vitamin B-1] 100 mg PO QDAY #30 tablet
--- NOTE | 2019-10-27 09:05 | Progress Note ---
Assessment and Plan 1. Acute kidney injury: Vasomotor JOHN in the setting of volume depletion. Renal US negative for hydro, revealed bilateral renal cyst. Creatinine has improved from admission, 0.8 from 2.3 from 5.8. Continue IV fluids. Monitor renal function. Renal prognosis is guarded. Avoid nephrotoxic agents. Meds dosage based on GFR. 2. FEN: Hypokalemia, replete K, monitor. Monitor lytes and volume status. 3. Acute on chronic pancreatitis: 2/2 alcohol abuse. Nausea and vomiting improving. S/p multivitamin infusion. 4. Alcoholic encephalopathy: Improving. Monitor mental status. 5. Elevated troponins: Likely 2/2 JOHN. EKG negative for abnormality. Cards following. 6. Alcohol dependence: On CIWA protocol. 7. Pyuria: 8. Dysphagia: H/o LA Grade IV esophagitis, duodenitis via biopsy. GI f/u outpatient. On PPI. 9. Hypertension: BP controlled at time of exam. Monitor BP. 10. Hyperlipidemia: Subjective Date of service: 10/27/19 Interval history: Patient was seen and examined at the bedside. He is more alert and participating in conversation today. He has complaints of intermittent nausea. Objective - Exam Narrative Exam: General appearance: well-developed, well-nourished, appears stated age, unkept EENT: ATNC, PERRL, mucous membranes dry, hearing intact, vision intact Neck: Present: neck supple, trachea midline Respiratory: Clear to Ascultation Heart: regular, normal heart rate, S1S2, no murmurs Gastrointestinal: Present: normal, normoactive bowel sounds, obese. Absent: tenderness, distended, masses Integumentary: no rash, warm and dry Neurologic: no focal deficit, no asterixis, more alert and oriented today Musculoskeletal: no deformity, no clubbing Psychiatric: mood/affect appropriate, speech is coherent - Vital Signs Vital signs: Vital Signs - 12hr 10/26/19 10/26/19 10/27/19 22:00 23:50 00:31 Temperature 97.9 F Pulse Rate 105 H Respiratory 20 20 Rate Blood Pressure 183/111 O2 Sat by Pulse 98 100 Oximetry 10/27/19 10/27/19 10/27/19 04:09 04:56 07:10 Temperature 122.0 F H 97.8 F 98.7 F Pulse Rate 86 83 Respiratory 16 20 Rate Blood Pressure 121/61 132/88 O2 Sat by Pulse 100 100 Oximetry 10/27/19 08:40 Temperature Pulse Rate Respiratory Rate Blood Pressure O2 Sat by Pulse 100 Oximetry - Lab 10/27/19 03:51 10/27/19 03:51 Most recent lab results Calcium 9.2 mg/dL (8.4-10.2) 10/27/19 03:51 Phosphorus 2.80 mg/dL (2.5-4.5) 10/26/19 03:53 Magnesium 2.10 mg/dL (1.7-2.3) 10/25/19 13:40 Urine Creatinine 170.7 mg/dL (0.1-20.0) H 10/25/19 Unknown Urine Sodium 88 mmol/L 10/25/19 Unknown Medications & Allergies - Medications Allergies/Adverse Reactions: Allergies No Known Allergies Allergy (Verified 10/25/19 12:42) Home Medications: Home Medications Medication Instructions Recorded Confirmed Last Taken Type allopurinoL [Zyloprim] 100 mg PO BID #60 tablet 04/23/16 Unknown Rx AtorvaSTATin [Lipitor] 40 mg PO QHS #30 tablet 07/24/19 Unknown Rx Dicyclomine [Bentyl] 10 mg PO QID #30 capsule 10/27/19 Unknown Rx Folic Acid [Folvite] 1 mg PO QDAY #30 tablet 10/27/19 Unknown Rx Lipase/Protease/Amylase [Creon Dr 1 each PO DAILY #30 capsule.dr 10/27/19 Unknown Rx 6,000 Units Capsule] Pantoprazole [Protonix TAB] 40 mg PO BID #60 tablet 10/27/19 Unknown Rx Thiamine [Vitamin B-1] 100 mg PO QDAY #30 tablet 10/27/19 Unknown Rx amLODIPine 5 mg PO DAILY #30 tab 10/27/19 Unknown Rx chlordiazePOXIDE [Librium] 5 mg PO Q8H #30 capsule 10/27/19 Unknown Rx levoFLOXacin [Levaquin TAB] 500 mg PO QDAY #3 tablet 10/27/19 Unknown Rx Active Medications: Generic Name Dose Route Start Last Admin Trade Name Freq PRN Reason Stop Dose Admin Acetaminophen 650 mg 10/25/19 15:38 10/26/19 05:28 Tylenol PO 650 mg Q4H PRN Administration Pain MILD(1-3)/Fever >100.5/[place] Allopurinol 100 mg 10/25/19 22:00 10/26/19 22:33 Zyloprim PO 100 mg BID JANNETH Administration Amlodipine Besylate 5 mg 10/26/19 10:00 10/26/19 09:10 Amlodipine PO 5 mg DAILY JANNETH Administration Atorvastatin Calcium 40 mg 10/25/19 22:00 10/26/19 22:33 Lipitor PO 40 mg QHS JANNETH Administration Chlordiazepoxide HCl 25 mg 10/25/19 16:00 10/27/19 06:19 Librium PO 25 mg Q8HR JANNETH Administration Folic Acid 1 mg 10/26/19 10:00 10/26/19 09:10 Folvite PO 1 mg QDAY JANNETH Administration Heparin Sodium (Porcine) 5,000 unit 10/25/19 22:00 10/26/19 22:33 Heparin SUB-Q 5,000 unit Q12HR JANNETH Administration Hydralazine HCl 10 mg 10/26/19 23:56 10/27/19 00:31 Apresoline IV 10 mg Q4H PRN Administration Blood Pressure Sodium Chloride 1,000 mls @ 150 mls/hr 10/25/19 15:45 10/26/19 06:19 Nacl 0.9% 1000 Ml IV 125 mls/hr DIRECT JANNETH Administration Ceftriaxone Sodium 1 gm in 50 mls @ 100 mls/hr 10/25/19 18:00 10/26/19 22:51 Rocephin/Ns 1 Gm/50 Ml IV 100 mls/hr Q24H JANNETH Administration Protocol Lorazepam 2 mg 10/25/19 12:50 10/26/19 22:45 Ativan IV 2 mg Q1HR PRN Administration CIWA-Ar 8-15 Lorazepam 4 mg 10/25/19 12:50 Ativan IV Q1HR PRN CIWA-Ar 16-25 Lorazepam 4 mg 10/25/19 12:50 Ativan IV Q15MIN PRN CIWA-Ar >25 Morphine Sulfate 2 mg 10/26/19 18:02 10/27/19 00:31 Morphine IV 2 mg Q6H PRN Administration Pain, Moderate (4-6) Ondansetron HCl 4 mg 10/25/19 15:38 10/26/19 18:46 Zofran IV 4 mg Q8H PRN Administration Nausea And Vomiting Pantoprazole Sodium 40 mg 10/26/19 18:30 10/26/19 18:45 Protonix IV 10/27/19 23:59 40 mg BID JANNETH Administration Pantoprazole Sodium 40 mg 10/28/19 10:00 Protonix PO BID JANNETH Potassium Chloride 40 meq 10/27/19 08:00 10/27/19 08:50 K-Dur PO 10/27/19 14:01 40 meq Q6H JANNETH Administration Sodium Chloride 10 ml 10/25/19 22:00 10/26/19 22:34 Sodium Chloride Flush Syringe 10 Ml IV 10 ml BID JANNETH Administration Sodium Chloride 10 ml 10/25/19 15:38 Sodium Chloride Flush Syringe 10 Ml IV PRN PRN LINE FLUSH Thiamine HCl 100 mg 10/26/19 10:00 10/26/19 09:11 Vitamin B-1 PO 100 mg QDAY JANNETH Administration
--- NOTE | 2019-10-27 09:31 | Progress Note ---
Assessment and Plan Borderline troponin elevation EKG was normal sinus rhythm with left ventricle hypertrophy by voltage criteria, no acute ischemic changes. Nausea and vomiting Acute renal failure Hypertension Hx of alcohol abuse Chronic pancreatitis Tobacco abuse Recommendations: The borderline, isolated troponin rise is a likely nonspecific finding in the setting of acute severe acute kidney injury. No cardiac work-up is indicated. We will follow intermittently. Subjective Date of service: 10/27/19 Interval history: Patient is resting in bed comfortably. No cardiac complaints. Objective Vital Signs Temp Pulse Resp BP Pulse Ox 10/27/19 08:40 100 10/27/19 07:10 98.7 F 83 20 132/88 100 10/27/19 04:56 97.8 F 10/27/19 04:09 122.0 F H 86 16 121/61 100 10/27/19 00:31 20 10/26/19 23:50 97.9 F 105 H 20 183/111 100 10/26/19 22:00 98 10/26/19 20:20 90 10/26/19 19:57 98.0 F 90 20 152/92 100 10/26/19 15:52 98.8 F 86 20 155/89 100 10/26/19 11:44 98.5 F 79 20 126/86 100 - Physical Examination General: No Apparent Distress HEENT: Positive: PERRL Neck: Positive: trachea midline Cardiac: Positive: Reg Rate and Rhythm Neuro: Positive: Grossly Intact Extremities: Absent: edema - Labs and Meds CBC 10/27/19 Range/Units 03:51 WBC 7.7 (4.5-11.0) K/mm3 RBC 4.42 (3.65-5.03) M/mm3 Hgb 10.6 L (11.8-15.2) gm/dl Hct 32.9 L D (35.5-45.6) % Plt Count 361 (140-440) K/mm3 Comprehensive Metabolic Panel 10/27/19 Range/Units 03:51 Sodium 137 (137-145) mmol/L Potassium 3.1 L (3.6-5.0) mmol/L Chloride 98.3 (98-107) mmol/L Carbon Dioxide 26 (22-30) mmol/L BUN 25 H (9-20) mg/dL Creatinine 0.8 D (0.8-1.5) mg/dL Glucose 106 H (75-100) mg/dL Calcium 9.2 (8.4-10.2) mg/dL
[2019-10-27] MEDS: PANTOPRAZOLE 40 MG INJ IV SCH (11:35)
[2019-10-27] MEDS: FOLIC ACID 1 MG TAB PO SCH (11:36)
[2019-10-27] MEDS: HEPARIN 5,000 UNIT/1 ML VIAL SUB-Q SCH (11:36)
[2019-10-27] MEDS: THIAMINE 100 MG TAB PO SCH (11:36)
[2019-10-27] MEDS: allopurinoL 100 MG TAB PO SCH (11:36)
[2019-10-27] MEDS: amLODIPine 5 MG TAB PO SCH (11:36)
[2019-10-27 19:16] VITALS: BP 115/78
[2019-10-28] MEDS ORDERED: PANTOPRAZOLE 40 MG TAB PO SCH (10:00)
== END 2019-10-27 17:59 | disposition home health service (06) | DRG 438 ==
LOC: ED 12:23 → 4A 15:38
PROVIDERS: ADMIT Internal Medicine; ATTEND Internal Medicine
DX: K85.20 Alcohol induced acute pancreatitis without necrosis or infection (principal); I21.A1 Myocardial infarction type 2; N17.0 Acute kidney failure with tubular necrosis; F10.288 Alcohol dependence with other alcohol-induced disorder; N30.00 Acute cystitis without hematuria; K20.9 Esophagitis, unspecified; G31.2 Degeneration of nervous system due to alcohol; F17.210 Nicotine dependence, cigarettes, uncomplicated; Z71.6 Tobacco abuse counseling; I10 Essential (primary) hypertension; M19.90 Unspecified osteoarthritis, unspecified site; M10.9 Gout, unspecified; E87.6 Hypokalemia; Z82.49 Family history of ischemic heart disease and other diseases of the circulatory system; E78.5 Hyperlipidemia, unspecified; K72.90 Hepatic failure, unspecified without coma; E78.2 Mixed hyperlipidemia; R13.10 Dysphagia, unspecified; Y90.9 Presence of alcohol in blood, level not specified; K29.80 Duodenitis without bleeding; N30.90 Cystitis, unspecified without hematuria; B96.89 Other specified bacterial agents as the cause of diseases classified elsewhere; G89.4 Chronic pain syndrome
CPT/HCPCS: 36415; 71045; 74176; 76770; 80048; 80053; 80061; 80320; 81001; 82140; 82271; 82550; 82570; 83690; 83735; 84100; 84300; 84484; 85025; 85027; 85610; 87076; 87086; 87186; 93005; 99406; G0378; A9270-GY; C9113; G0480; J0360; J0696; J1644; J2060; J2270; J2405; J3411; J3475; J3480; J7030

== ENCOUNTER 2020-11-19 16:17 | Inpatient (IN) | payer MEDICARE ==
[2020-11-19] MEDS ORDERED: ASPIRIN 325 MG TAB PO ONE (16:31)
[2020-11-19] MEDS ORDERED: SODIUM CHLORIDE 0.9% 1000 ML 1,000 ML IV ONE ×2 (16:39→19:09)
[2020-11-19] MEDS ORDERED: PANTOPRAZOLE 40 MG INJ IV ONE (16:41)
[2020-11-19] MEDS ORDERED: MORPHINE 2 MG/1 ML INJ IV ONE (16:46)
[2020-11-19] MEDS ORDERED: ONDANSETRON 4 MG/2 ML INJ IV ONE (16:46)
[2020-11-19] MEDS ORDERED: HYDROmorphone 1 MG/1 ML INJ IV PRN (17:02)
[2020-11-19 17:08] LABS: Hematocrit 35.6 % (35.5-45.6); Hemoglobin 11.8 gm/dl (11.8-15.2); Mean Corpuscular HGB Conc 33 % (32-34); Mean Corpuscular Volume 77 fl (84-94); Platelet Count 525 K/mm3 (140-440); Red Blood Count 4.63 M/mm3 (3.65-5.03)
[2020-11-19 17:32] LABS: Alanine Aminotransferase 20 units/L (7-56); Albumin 2.7 g/dL (3.9-5); BUN/Creatinine Ratio 56; Bilirubin,Direct 0.2 mg/dL (0-0.2); Blood Urea Nitrogen 90 mg/dL (9-20); Calcium 9.7 mg/dL (8.4-10.2); Creatine Kinase MB < 1.0 ng/mL (0.0-4.0); Hemolysis Index 76
--- NOTE | 2020-11-19 17:37 | Emergency Department Report ---
ED General Adult HPI - General Chief complaint: Chest Pain Stated complaint: Abdominal pain Time Seen by Provider: 11/19/20 16:28 Source: patient, EMS Mode of arrival: Stretcher Limitations: No Limitations - History of Present Illness Initial comments: This is a 60-year-old man who arrives via EMS after they perceived him to have a code STEMI. Clearly his EKG in the field did not show a STEMI. Medics also transmitted a rhythm strip that they thought was indicative of a dysrhythmia. This also proved to be motion artifact. On my encounter the patient states that he is mainly suffering from abdominal pain in the epigastric region. He does complain of back pain. He does also have some chest discomfort but this is not a prominent symptom. He does not report radiating pain. Patient readily admits that he has had pancreatitis in the past; he states that the current pain is precisely the same as his previous episodes of pancreatitis. Indeed he states he has been having pain for several days if not more than a week. He admits to substantial quantity of alcohol consumption on "". He does not report any signs of GI bleeding. - Related Data Previous Rx's Medication Instructions Recorded Last Taken Type allopurinoL [Zyloprim] 100 mg PO BID #60 tablet 04/23/16 Unknown Rx AtorvaSTATin [Lipitor] 40 mg PO QHS #30 tablet 07/24/19 Unknown Rx Dicyclomine [Bentyl] 10 mg PO QID #30 capsule 10/27/19 Unknown Rx Folic Acid [Folvite] 1 mg PO QDAY #30 tablet 10/27/19 Unknown Rx Lipase/Protease/Amylase [Karen Au 1 each PO DAILY #30 capsule. 10/27/19 Unknown Rx 6,000 Units Capsule] Pantoprazole [Protonix TAB] 40 mg PO BID #60 tablet 10/27/19 Unknown Rx Thiamine [Vitamin B-1] 100 mg PO QDAY #30 tablet 10/27/19 Unknown Rx amLODIPine 5 mg PO DAILY #30 tab 10/27/19 Unknown Rx chlordiazePOXIDE [Librium] 5 mg PO Q8H #30 capsule 10/27/19 Unknown Rx levoFLOXacin [Levaquin TAB] 500 mg PO QDAY #3 tablet 10/27/19 Unknown Rx Sucralfate [Carafate] 1 gm PO ACHS #30 tablet 05/10/20 Unknown Rx levoFLOXacin [Levaquin TAB] 500 mg PO QDAY #7 tablet 05/10/20 Unknown Rx Allergies Allergy/AdvReac Type Severity Reaction Status Date / Time No Known Allergies Allergy Verified 10/25/19 12:42 ED Review of Systems ROS: Stated complaint: CHEST PAIN Other details as noted in HPI ED Past Medical Hx - Past Medical History Hx Hypertension: Yes Hx Congestive Heart Failure: No Hx Diabetes: No Hx Arthritis: Yes Hx Asthma: No Hx COPD: No Additional medical history: gouty arthritis. pancreatitis - Surgical History Additional Surgical History: surgery on scrotum - Social History Smoking Status: Current Every Day Smoker Substance Use Type: Alcohol - Medications Home Medications: Home Medications Medication Instructions Recorded Confirmed Last Taken Type allopurinoL [Zyloprim] 100 mg PO BID #60 tablet 04/23/16 05/08/20 Unknown Rx AtorvaSTATin [Lipitor] 40 mg PO QHS #30 tablet 07/24/19 05/08/20 Unknown Rx Dicyclomine [Bentyl] 10 mg PO QID #30 capsule 10/27/19 05/08/20 Unknown Rx Folic Acid [Folvite] 1 mg PO QDAY #30 tablet 10/27/19 05/08/20 Unknown Rx Lipase/Protease/Amylase [Creon Dr 1 each PO DAILY #30 capsule.dr 10/27/19 05/08/20 Unknown Rx 6,000 Units Capsule] Pantoprazole [Protonix TAB] 40 mg PO BID #60 tablet 10/27/19 05/08/20 Unknown Rx Thiamine [Vitamin B-1] 100 mg PO QDAY #30 tablet 10/27/19 05/08/20 Unknown Rx amLODIPine 5 mg PO DAILY #30 tab 10/27/19 05/08/20 Unknown Rx chlordiazePOXIDE [Librium] 5 mg PO Q8H #30 capsule 10/27/19 05/08/20 Unknown Rx levoFLOXacin [Levaquin TAB] 500 mg PO QDAY #3 tablet 10/27/19 05/08/20 Unknown Rx Sucralfate [Carafate] 1 gm PO ACHS #30 tablet 05/10/20 Unknown Rx levoFLOXacin [Levaquin TAB] 500 mg PO QDAY #7 tablet 05/10/20 Unknown Rx ED Physical Exam - General Limitations: No Limitations ED Course Vital Signs 11/19/20 11/19/20 11/19/20 16:20 16:28 16:45 Temperature 97.6 F Pulse Rate 104 H 95 H 99 H Respiratory 22 31 H 25 H Rate Blood Pressure 144/82 144/82 O2 Sat by Pulse 99 99 100 Oximetry 11/19/20 11/19/20 11/19/20 17:01 17:15 17:31 Temperature Pulse Rate 105 H 100 H 101 H Respiratory 26 H 36 H 31 H Rate Blood Pressure 158/83 141/76 135/74 O2 Sat by Pulse 100 99 99 Oximetry 11/19/20 11/19/20 11/19/20 17:45 18:03 18:15 Temperature Pulse Rate 107 H 106 H Respiratory 25 H Rate Blood Pressure 117/72 117/72 106/66 O2 Sat by Pulse 98 98 98 Oximetry 11/19/20 11/19/20 11/19/20 18:31 18:45 19:01 Temperature Pulse Rate 99 H 101 H Respiratory 33 H 36 H Rate Blood Pressure 105/72 124/73 144/78 O2 Sat by Pulse 98 100 100 Oximetry 11/19/20 19:15 Temperature Pulse Rate Respiratory Rate Blood Pressure 140/81 O2 Sat by Pulse 98 Oximetry - Reevaluation(s) Reevaluation #1: Discussed with Dr. Barboza. Patient admitted to the hospitalist service. I am awaiting the official CT report. I have ordered additional blood work to include a lactic acid and blood cultures. I have viewed the CT. It clearly shows evidence of calcific pancreatitis. Awaiting radiologist report. 11/19/20 18:48 ED Medical Decision Making - Lab Data Result diagrams: 11/19/20 16:44 11/19/20 16:44 Laboratory Results - last 24 hr 11/19/20 11/19/20 11/19/20 16:44 16:44 16:44 WBC 29.1 H RBC 4.63 Hgb 11.8 Hct 35.6 MCV 77 L MCH 26 L MCHC 33 RDW 19.0 H Plt Count 525 H Seg Neutrophils % Converting Supervisor Sodium 125 L Potassium 4.1 Chloride 93.6 L Carbon Dioxide 10 L Anion Gap 26 BUN 90 H Creatinine 1.6 H Estimated GFR 54 BUN/Creatinine Ratio 56 Glucose 143 H Calcium 9.7 Magnesium 2.90 H Total Bilirubin 0.50 Direct Bilirubin 0.2 Indirect Bilirubin 0.3 AST 26 ALT 20 Alkaline Phosphatase 163 H Total Creatine Kinase 26 L CK-MB (CK-2) < 1.0 CK-MB (CK-2) Rel Index 3.8 Troponin T < 0.010 NT-Pro-B Natriuret Pep 454.0 Total Protein 7.6 Albumin 2.7 L Albumin/Globulin Ratio 0.6 Laboratory Results - last 24 hr 11/19/20 11/19/20 11/19/20 16:44 16:44 16:44 WBC 29.1 H RBC 4.63 Hgb 11.8 Hct 35.6 MCV 77 L MCH 26 L MCHC 33 RDW 19.0 H Plt Count 525 H Seg Neutrophils % Converting Supervisor PT 16.1 H INR 1.24 H APTT 34.3 Sodium Potassium Chloride Carbon Dioxide Anion Gap BUN Creatinine Estimated GFR BUN/Creatinine Ratio Glucose Calcium Magnesium Total Bilirubin Direct Bilirubin Indirect Bilirubin AST ALT Alkaline Phosphatase Total Creatine Kinase CK-MB (CK-2) CK-MB (CK-2) Rel Index Troponin T < 0.010 NT-Pro-B Natriuret Pep Total Protein Albumin Albumin/Globulin Ratio Lipase 11/19/20 11/19/20 16:44 16:49 WBC RBC Hgb Hct MCV MCH MCHC RDW Plt Count Seg Neutrophils % PT INR APTT Sodium 125 L Potassium 4.1 Chloride 93.6 L Carbon Dioxide 10 L Anion Gap 26 BUN 90 H Creatinine 1.6 H Estimated GFR 54 BUN/Creatinine Ratio 56 Glucose 143 H Calcium 9.7 Magnesium 2.90 H Total Bilirubin 0.50 Direct Bilirubin 0.2 Indirect Bilirubin 0.3 AST 26 ALT 20 Alkaline Phosphatase 163 H Total Creatine Kinase 26 L CK-MB (CK-2) < 1.0 CK-MB (CK-2) Rel Index 3.8 Troponin T NT-Pro-B Natriuret Pep 454.0 Total Protein 7.6 Albumin 2.7 L Albumin/Globulin Ratio 0.6 Lipase 141 H - EKG Data -: EKG Interpreted by Mt EKG shows normal: sinus rhythm, axis, intervals, QRS complexes, ST-T waves Rate: tachycardia - EKG Data Interpretation: nonspecific ST-T wave jessica, other ([facility]) - Radiology Data Radiology results: report reviewed, image reviewed IMPRESSION: 1. Acute inflammatory changes in both pararenal spaces, much more prominent on the right. Urinary tract infection is suspected. 2. Chronic calcific pancreatitis, but no evidence of acute pancreatitis. Signer Name: Austin Elizabeth MD Signed: 11/19/2020 6:48 PM Critical Care Time: Yes Critical care time in (mins) excluding proc time.: 90 Critical care attestation.: If time is entered above; I have spent that time in minutes in the direct care of this critically ill patient, excluding procedure time. ED Disposition Clinical Impression: Acute pyelonephritis, History of pancreatitis, Hyponatremia, Metabolic acidosis Sepsis Qualifiers: Sepsis type: sepsis due to unspecified organism Sepsis acute organ dysfunction status: with acute organ dysfunction Severe sepsis acute organ dysfunction type: acute renal failure Acute renal failure type: unspecified Severe sepsis shock status: without septic shock Qualified Code(s): A41.9 - Sepsis, unspecified organism Acute renal failure Qualifiers: Acute renal failure type: unspecified Qualified Code(s): N17.9 - Acute kidney failure, unspecified UTI (urinary tract infection) Qualifiers: Indwelling urinary catheter type: unspecified Encounter type: initial encounter Chest pain Qualifiers: Chest pain type: unspecified Qualified Code(s): R07.9 - Chest pain, unspecified Disposition: 09 OP ADMIT IP TO THIS HOSP Is pt being admited?: Yes Does the pt Need Aspirin: No Condition: Stable Instructions: Nonspecific Chest Pain, Adult Time of Disposition: 19:21
[2020-11-19 17:38] LABS: INR 1.24 (0.87-1.13)
--- NOTE | 2020-11-19 17:38 | XRay Report ---
CHEST 1 VIEW INDICATION: hypertension. COMPARISON: 05/07/2020 FINDINGS: Support devices: None. Heart: Normal. Lungs/Pleura: No acute pulmonary or pleural findings. IMPRESSION: 1. No acute findings. Signer Name: Kvng Montenegro MD Signed: 11/19/2020 5:34 PM Workstation Name: [id number]
[2020-11-19 17:39] LABS: Partial Thromboplastin Time 34.3 Sec. (24.2-36.6)
[2020-11-19 17:48] LABS: Total Cells Counted 200
[2020-11-19 17:49] LABS: Band Neutrophils # (Manual) 0.3 K/mm3; Monocytes % (Manual) 2.5 % (0.0-7.3)
[2020-11-19 17:50] LABS: Anisocytosis 1+; Hypochromasia 1+; Platelet Estimate Consistent w Auto; Target Cells Few
[2020-11-19] MEDS ORDERED: PIPERACIL/TAZOBACTA 4.5/NS 100 4.5 GM/100 ML VIAL IV ONE (18:10)
[2020-11-19] MEDS ORDERED: NALOXONE 0.4 MG/1 ML INJ IV PRN (18:11)
[2020-11-19] MEDS ORDERED: hydrALAZINE 20 MG/1 ML INJ IV PRN (18:18)
--- NOTE | 2020-11-19 18:27 | History and Physical Report ---
History of Present Illness Date of examination: 11/19/20 Date of admission: 10/19/2020 Chief complaint: Abdominal pain History of present illness: 60-year-old male with a history of hypertension, alcoholism, hyperlipidemia, recurrent pancreatitis presents with an acute episode of abdominal pain radiating to the left side to the back. Patient states symptoms have been going on for approximately 3 to 4 days which worsened and became more severe about 4 AM. Patient stated he has been unable to hold food down over the last 2 or 3 days. Nausea abdominal pain no vomiting. Patient denies any sick contacts no fever chills no shortness of breath or chest pain. Pain is described as above colicky pain from left lower quadrant and left upper quadrant around to the b ack. Consistent with his previous episodes of pancreatitis. Since that time pain has been severe 10 out of 10. Patient has received 2 mg morphine in the ED without relief. Patient states he has had pancreatitis before the last time several weeks ago. Patient also mentions drinking several weeks ago as well. Present difficult for patient to talk secondary to the amount of pain he is in. Important to note a code was called however EKGs reviewed in the ED x2 showed no evidence of acute EKG changes. Patient currently doing history very ill in pain which makes patient a poor historian at this time. Past History Past Medical History: GERD, hypertension, hyperlipidemia, liver disease. denies: atrial fib, arrhythmia, anemia, CAD, cancer, COPD, diabetes, dialysis, DVT, ESRD, heart failure, hepatitis, HIV/AIDS, hyperthyroidism, hypothyroidism, migraines, PVD, pulmonary embolism, renal failure, seizures, stroke, sarcoidosis Past Surgical History: No surgical history, Other (Scrotal lesion) Social history: lives with family, smoking, alcohol abuse Family history: no significant family history Medications and Allergies Allergies Allergy/AdvReac Type Severity Reaction Status Date / Time No Known Allergies Allergy Verified 10/25/19 12:42 Home Medications Medication Instructions Recorded Confirmed Last Taken Type allopurinoL [Zyloprim] 100 mg PO BID #60 tablet 04/23/16 05/08/20 Unknown Rx AtorvaSTATin [Lipitor] 40 mg PO QHS #30 tablet 07/24/19 05/08/20 Unknown Rx Dicyclomine [Bentyl] 10 mg PO QID #30 capsule 10/27/19 05/08/20 Unknown Rx Folic Acid [Folvite] 1 mg PO QDAY #30 tablet 10/27/19 05/08/20 Unknown Rx Lipase/Protease/Amylase [Karen Au 1 each PO DAILY #30 capsule. 10/27/19 05/08/20 Unknown Rx 6,000 Units Capsule] Pantoprazole [Protonix TAB] 40 mg PO BID #60 tablet 10/27/19 05/08/20 Unknown Rx Thiamine [Vitamin B-1] 100 mg PO QDAY #30 tablet 10/27/19 05/08/20 Unknown Rx amLODIPine 5 mg PO DAILY #30 tab 10/27/19 05/08/20 Unknown Rx chlordiazePOXIDE [Librium] 5 mg PO Q8H #30 capsule 10/27/19 05/08/20 Unknown Rx levoFLOXacin [Levaquin TAB] 500 mg PO QDAY #3 tablet 10/27/19 05/08/20 Unknown Rx Sucralfate [Carafate] 1 gm PO ACHS #30 tablet 05/10/20 Unknown Rx levoFLOXacin [Levaquin TAB] 500 mg PO QDAY #7 tablet 05/10/20 Unknown Rx Active Meds: Active Medications Enoxaparin Sodium (Enoxaparin 40 Mg/0.4 Ml Inj) 40 mg SUB-Q QDAY JANNETH Hydralazine HCl (Hydralazine 20 Mg/1 Ml Inj) 10 mg IV Q4HR PRN PRN Reason: Hypertension Hydromorphone HCl (Hydromorphone 1 Mg/1 Ml Inj) 0.5 mg IV ONCE PRN PRN Reason: Pain , Severe (7-10) Piperacillin Sod/Tazobactam Sod (Zosyn/Ns 4.5gm/100ml) 4.5 gm in 100 mls @ 200 mls/hr IV ONCE ONE; Protocol Stop: 11/19/20 18:39 Dextrose/Sodium Chloride (D5ns) 1,000 mls @ 125 mls/hr IV DIRECT JANNETH Thiamine HCl 100 mg/ Sodium (Chloride) 51 mls @ 100 mls/hr IV ONCE ONE Stop: 11/19/20 18:49 Thiamine HCl 100 mg/ Folic Acid 1 mg/ Multivitamins/Minerals 10 ml/ Sodium Chl oride 1,011.2 mls @ 250 mls/hr IV ONCE ONE Stop: 11/19/20 22:23 Piperacillin Sod/Tazobactam Sod (Zosyn/Ns 3.375gm/50ml) 3.375 gm in 50 mls @ 100 mls/hr IV Q8H JANNETH; Protocol Morphine Sulfate (Morphine 2 Mg/1 Ml Inj) 4 mg IV Q4H PRN PRN Reason: Pain, Moderate (4-6) Naloxone HCl (Naloxone 0.4 Mg/1 Ml Inj) 0.1 mg IV Q2MIN PRN PRN Reason: Res Rate </= 8 or 02 SAT < 92% Ondansetron HCl (Ondansetron 4 Mg/2 Ml Inj) 4 mg IV Q8H PRN PRN Reason: Nausea And Vomiting Pantoprazole Sodium (Pantoprazole 40 Mg Inj) 40 mg IV BID JANNETH Sodium Chloride (Sodium Chloride 0.9% 10 Ml Flush Syringe) 10 ml IV BID JANNETH Sodium Chloride (Sodium Chloride 0.9% 10 Ml Flush Syringe) 10 ml IV PRN PRN PRN Reason: LINE FLUSH Review of Systems Constitutional: anorexia, weakness, malaise, no weight loss Ears, nose, mouth and throat: no ear pain, no decreased hearing, no nasal congestion, no sinus pressure, no mouth pain, no headache Cardiovascular: palpitations, lightheadedness, shortness of breath, high blood pressure, no chest pain, no orthopnea, no rapid/irregular heart beat, no edema, no syncope, no dyspnea on exertion, no paroxysmal nocturnal dyspnea, no claudication, no phlebitis, no leg edema, no decreased exercise tolerance Respiratory: no cough, no cough with sputum, no excessive sputum, no hemoptysis, no shortness of breath, no dyspnea on exertion, no wheezing, no sleep apnea, no respiratory infections Gastrointestinal: abdominal pain, nausea, vomiting, change in bowel habits, loss of appetite, heartburn, indigestion, belching, no diarrhea, no constipation, no hematemesis, no coffee ground emesis, no BRBPR, no melena, no hematochezia, no early satiety, no excessive gas, no jaundice, no early satiety Genitourinary Male: no hematuria, no discharge, no decreased libido, no difficulties fathering child Musculoskeletal: muscle weakness, no neck stiffness, no shooting arm pain, no arm numbness/tingling, no low back pain, no shooting leg pain, no leg numbness/tingling, no hot joints, no muscle cramps, no myalgias, no atrophy, no loss of height Integumentary: no rash, no sores, no wounds, no depigmentation Neurological: no paralysis, no numbness, no seizures, no headaches, no aphasia, no confusion, no motor disturbance, no double vision, no hearing difficulties Psychiatric: no change in sleep habits, no change in libido, no suicidal ideation, no hopelessness, no anxiety attacks, no confusion Endocrine: no heat intolerance, no polydipsia, no nocturia, no excessive sweating, no proptosis, no thyroid mass, no high blood sugars Hematologic/Lymphatic: no easy bleeding, no thrombophilia Allergic/Immunologic: no allergic rhinitis Exam - Constitutional Vitals: Temp Pulse Resp BP Pulse Ox 97.6 F 104 H 22 144/82 99 11/19/20 16:20 11/19/20 16:20 11/19/20 16:20 11/19/20 16:20 11/19/20 16:20 General appearance: Present: severe distress, well-nourished - EENT Eyes: Present: PERRL ENT: hearing intact, clear oral mucosa, other ([place]orne sclera) - Neck Neck: Present: supple, normal ROM - Respiratory Respiratory effort: normal Respiratory: bilateral: CTA - Cardiovascular Heart Sounds: Present: S1 & S2. Absent: rub, click - Extremities Extremities: pulses symmetrical, No edema Peripheral Pulses: within normal limits - Abdominal General gastrointestinal: Present: tender, distended, hypoactive bowel sounds, other (Pain with palpation left lower quadrant. Guarding no rebound.) Male genitourinary: Present: normal - Rectal Rectal Exam: deferred - Integumentary Integumentary: Present: clear, warm, dry - Musculoskeletal Musculoskeletal: gait normal, strength equal bilaterally - Psychiatric Psychiatric: appropriate mood/affect, intact judgment & insight, other (Patient had a great degree of pain difficult for exam.) - Neurologic Neurologic: CNII-XII intact, moves all extremities HEART Score - HEART Score Troponin: Troponin T < 0.010 ng/mL (0.00-0.029) 11/19/20 16:44 Results - Labs CBC & Chem 7: 11/19/20 16:44 11/19/20 16:44 Labs: Laboratory Last Values WBC 29.1 K/mm3 (4.5-11.0) H 11/19/20 16:44 RBC 4.63 M/mm3 (3.65-5.03) 11/19/20 16:44 Hgb 11.8 gm/dl (11.8-15.2) 11/19/20 16:44 Hct 35.6 % (35.5-45.6) 11/19/20 16:44 MCV 77 fl (84-94) L 11/19/20 16:44 MCH 26 pg (28-32) L 11/19/20 16:44 MCHC 33 % (32-34) 11/19/20 16:44 RDW 19.0 % (13.2-15.2) H 11/19/20 16:44 Plt Count 525 K/mm3 (140-440) H 11/19/20 16:44 Add Manual Diff Complete 11/19/20 16:44 Total Counted 200 11/19/20 16:44 Seg Neutrophils % Segment Block Layer 11/19/20 16:44 Seg Neuts % (Manual) 95.0 % (40.0-70.0) H 11/19/20 16:44 Band Neutrophils % 1.0 % 11/19/20 16:44 Lymphocytes % (Manual) 1.5 % (13.4-35.0) L 11/19/20 16:44 Monocytes % (Manual) 2.5 % (0.0-7.3) 11/19/20 16:44 Nucleated RBC % Not Reportable 11/19/20 16:44 Seg Neutrophils # Man 27.6 K/mm3 (1.8-7.7) H 11/19/20 16:44 Band Neutrophils # 0.3 K/mm3 11/19/20 16:44 Lymphocytes # (Manual) 0.4 K/mm3 (1.2-5.4) L 11/19/20 16:44 Abs React Lymphs (Man) 0.0 K/mm3 11/19/20 16:44 Monocytes # (Manual) 0.7 K/mm3 (0.0-0.8) 11/19/20 16:44 Eosinophils # (Manual) 0.0 K/mm3 (0.0-0.4) 11/19/20 16:44 Basophils # (Manual) 0.0 K/mm3 (0.0-0.1) 11/19/20 16:44 Metamyelocytes # 0.0 K/mm3 11/19/20 16:44 Myelocytes # 0.0 K/mm3 11/19/20 16:44 Promyelocytes # 0.0 K/mm3 11/19/20 16:44 Blast Cells # 0.0 K/mm3 11/19/20 16:44 WBC Morphology Not Reportable 11/19/20 16:44 Hypersegmented Neuts Not Reportable 11/19/20 16:44 Hyposegmented Neuts Not Reportable 11/19/20 16:44 Hypogranular Neuts Not Reportable 11/19/20 16:44 Smudge Cells Not Reportable 11/19/20 16:44 Toxic Granulation Not Reportable 11/19/20 16:44 Toxic Vacuolation Not Reportable 11/19/20 16:44 Dohle Bodies Not Reportable 11/19/20 16:44 Pelger-Huet Anomaly Not Reportable 11/19/20 16:44 Aiden Rods Not Reportable 11/19/20 16:44 Platelet Estimate Consistent w auto 11/19/20 16:44 Clumped Platelets Not Reportable 11/19/20 16:44 Plt Clumps, EDTA Not Reportable 11/19/20 16:44 Large Platelets Not Reportable 11/19/20 16:44 Giant Platelets Not Reportable 11/19/20 16:44 Platelet Satelliting Not Reportable 11/19/20 16:44 Plt Morphology Comment Not Reportable 11/19/20 16:44 RBC Morphology Not Reportable 11/19/20 16:44 Dimorphic RBCs Not Reportable 11/19/20 16:44 Polychromasia Not Reportable 11/19/20 16:44 Hypochromasia 1+ 11/19/20 16:44 Poikilocytosis Not Reportable 11/19/20 16:44 Anisocytosis 1+ 11/19/20 16:44 Microcytosis Not Reportable 11/19/20 16:44 Macrocytosis Not Reportable 11/19/20 16:44 Spherocytes Not Reportable 11/19/20 16:44 Pappenheimer Bodies Not Reportable 11/19/20 16:44 Sickle Cells Not Reportable 11/19/20 16:44 Target Cells Few 11/19/20 16:44 Tear Drop Cells Not Reportable 11/19/20 16:44 Ovalocytes Not Reportable 11/19/20 16:44 Helmet Cells Not Reportable 11/19/20 16:44 Lux-Sikes Bodies Not Reportable 11/19/20 16:44 [place] Rings Not Reportable 11/19/20 16:44 Jackson Cells Not Reportable 11/19/20 16:44 Bite Cells Not Reportable 11/19/20 16:44 Crenated Cell Not Reportable 11/19/20 16:44 Elliptocytes Not Reportable 11/19/20 16:44 Acanthocytes (Spur) Not Reportable 11/19/20 16:44 Rouleaux Not Reportable 11/19/20 16:44 Hemoglobin C Crystals Not Reportable 11/19/20 16:44 Schistocytes Not Reportable 11/19/20 16:44 Malaria parasites Not Reportable 11/19/20 16:44 Florin Bodies Not Reportable 11/19/20 16:44 Hem Pathologist Commnt No 11/19/20 16:44 PT 16.1 Sec. (12.2-14.9) H 11/19/20 16:44 INR 1.24 (0.87-1.13) H 11/19/20 16:44 APTT 34.3 Sec. (24.2-36.6) 11/19/20 16:44 D-Dimer 1767.06 ng/mlDDU (0-234) H 11/19/20 16:44 Sodium 125 mmol/L (137-145) L 11/19/20 16:44 Potassium 4.1 mmol/L (3.6-5.0) 11/19/20 16:44 Chloride 93.6 mmol/L (98-107) L 11/19/20 16:44 Carbon Dioxide 10 mmol/L (22-30) L 11/19/20 16:44 Anion Gap 26 mmol/L 11/19/20 16:44 BUN 90 mg/dL (9-20) H 11/19/20 16:44 Creatinine 1.6 mg/dL (0.8-1.3) H 11/19/20 16:44 Estimated GFR 54 ml/min 11/19/20 16:44 BUN/Creatinine Ratio 56 % 11/19/20 16:44 Glucose 143 mg/dL (75-100) H 11/19/20 16:44 Calcium 9.7 mg/dL (8.4-10.2) 11/19/20 16:44 Magnesium 2.90 mg/dL (1.7-2.3) H 11/19/20 16:44 Total Bilirubin 0.50 mg/dL (0.1-1.2) 11/19/20 16:44 Direct Bilirubin 0.2 mg/dL (0-0.2) 11/19/20 16:44 Indirect Bilirubin 0.3 mg/dL 11/19/20 16:44 AST 26 units/L (5-40) 11/19/20 16:44 ALT 20 units/L (7-56) 11/19/20 16:44 Alkaline Phosphatase 163 units/L (35-129) H 11/19/20 16:44 Total Creatine Kinase 26 units/L (55-170) L 11/19/20 16:44 CK-MB (CK-2) < 1.0 ng/mL (0.0-4.0) 11/19/20 16:44 CK-MB (CK-2) Rel Index 3.8 (0-4) 11/19/20 16:44 Troponin T < 0.010 ng/mL (0.00-0.029) 11/19/20 16:44 NT-Pro-B Natriuret Pep 454.0 pg/mL (0-900) 11/19/20 16:44 Total Protein 7.6 g/dL (6.3-8.2) 11/19/20 16:44 Albumin 2.7 g/dL (3.9-5) L 11/19/20 16:44 Albumin/Globulin Ratio 0.6 % 11/19/20 16:44 Lipase 141 units/L (13-60) H 11/19/20 16:49 - Imaging and Cardiology EKG: report reviewed, image reviewed Chest x-ray: report reviewed, image reviewed CT scan - abdomen: report reviewed, image reviewed Assessment and Plan Advance Directives: Yes VTE prophylaxis?: Chemical Plan of care discussed with patient/family: Yes - Patient Problems (1) Acute alcoholic pancreatitis Current Visit: No Status: Acute Plan to address problem: Admit to I [facility]. Patient extremely acidotic with a white count of 29 sepsis acute abdominal pain cannot rule out sepsis. Also high suspicion of withdrawal. Follow in [facility] 24 hours observation. abdominal pain left-sided. Acute on chronic pancreatitis. Secondary to alcohol use. -Provide supportive care with pain control. Increase morphine to 4 mg IV every 4 hours titrate accordingly. -Treat for possible intra-abdominal infection Zosyn Flagyl -Aggressive IV volume replacement -Bowel rest n.p.o. -Supportive care antiemetics, proton pump inhibitor (2) Acute renal failure Current Visit: Yes Status: Acute Qualifiers: Acute renal failure type: unspecified Qualified Code(s): N17.9 - Acute kidney failure, unspecified Plan to address problem: Acute renal failure secondary to chronic pancreatitis and prerenal azotemia ATN Aggressive volume replacement follow electrolytes. Correct accordingly. (3) Alcohol withdrawal delirium Current Visit: No Status: Acute Plan to address problem: We will place on CIWA protocol. Patient stated he only drink several days ago. From history appears very unlikely. Will place patient on CIWA protocol titrate accordingly. Alcohol cessation will be discussed when patient less critical. (4) History of ETOH abuse Current Visit: No Status: Chronic Plan to address problem: Education when patient is less critical and not as much pain. (5) Hypertension Current Visit: No Status: Chronic Qualifiers: Hypertension type: essential hypertension Qualified Code(s): I10 - Essential (primary) hypertension Plan to address problem: Patient somewhat hypotensive. Will hold blood pressure medicines for now treat with hydralazine 10 mg every 4 hours as needed IV. Patient is n.p.o. now. (6) Tobacco use Current Visit: No Status: Chronic Plan to address problem: Add nicotine patch. (7) Sepsis Current Visit: No Status: Suspected Qualifiers: Sepsis type: sepsis due to unspecified organism Sepsis acute organ dysfunc tion status: with acute organ dysfunction Severe sepsis acute organ dysfu nction type: acute renal failure Acute renal failure type: unspecified Severe sepsis shock status: without septic shock Qualified Code(s): A41.9 - Sepsis, unspecified organism; R65.20 - Severe sepsis without septic shock; N17.9 - Acute kidney failure, unspecified Plan to address problem: Sepsis we will obtain blood cultures. Transfer to the ICU since patient is so acidotic. Most likely secondary to acute on chronic pancreatitis uremia from acute renal failure. Patient leukocytosis, acidosis and abdominal pain. Will treat with Zosyn Flagyl for now. Blood culture. Will titrate antibiotics pending blood culture data. Aggressive IV volume replacement Follow culture data Titrate antibiotics accordingly. (8) Malnutrition Current Visit: No Status: Acute Plan to address problem: Patient able to eat or drink in several days. We will continue to be n.p.o. If patient does not respond by a.m. may require NG tube. But hopefully we can gather adequate pain control so patient can start clear liquid diets next 1 to 2 days and advance accordingly. (9) Metabolic acidosis due to diabetes mellitus Current Visit: Yes Status: Acute (10) Metabolic acidosis Current Visit: Yes Status: Acute Plan to address problem: Secondary to uremia as well as chronic pancreatitis treat underlying etiology. (11) DVT prophylaxis Current Visit: Yes Status: Acute
[2020-11-19] MEDS ORDERED: HYDROmorphone 1 MG/1 ML INJ IV ONE (18:50)
--- NOTE | 2020-11-19 18:52 | Cat Scan Report ---
CT abdomen pelvis wo con INDICATION: abd pain. TECHNIQUE: All CT scans at this location are performed using CT dose reduction for ALARA by means of automated e xposure control. COMPARISON: 05/08/2020 FINDINGS: No acute disease in the lung bases. Liver, gallbladder, spleen and pancreas are grossly negative on t his noncontrast exam. There is considerable fluid and inflammatory change around the right kidney, with less prominent infl ammation in the superior left pararenal space. Neither kidney is hydronephrotic. Pelvis Urinary bladder and distal ureters are negative. No appreciable bowel abnormalities. Normal appendix. No acute skeletal lesions. IMPRESSION: 1. Acute inflammatory changes in both pararenal spaces, much more prominent on the right. Urinary tra ct infection is suspected. 2. Chronic calcific pancreatitis, but no evidence of acute pancreatitis. Signer Name: Austin Elizabeth MD Signed: 11/19/2020 6:48 PM Workstation Name: [id number]
[2020-11-19] MEDS ORDERED: THIAMINE 100 MG in SODIUM CHLORIDE 0.9% 50 ML IV ONE (19:19)
[2020-11-19] MEDS ORDERED: THIAMINE 100 MG, FOLIC ACID 1 MG, MULTIPLE VITAMIN INJ, ADULT 10 ML in SODIUM CHLORIDE ... IV ONE (19:21)
[2020-11-19] MEDS: MORPHINE 2 MG/1 ML INJ IV PRN ×2 (19:30→23:25)
[2020-11-19] MEDS: PIPERACILLIN/TAZOBACTAM 3.375 3.375 GM/50 ML BAG IV SCH (19:31)
[2020-11-19] MEDS: ENOXAPARIN 40 MG/0.4 ML INJ SUB-Q SCH (19:55)
[2020-11-19 20:49] LABS: Bacteria,Urine 1+ /HPF (Negative); Bilirubin,Urine NEG (Negative); Blood,Urine NEG (Negative); Color,Urine Yellow (Yellow); Hyaline Casts,Urine 1 /LPF; Mucus,Urine FEW /HPF; Protein,Urine <15 mg/dL mg/dL (Negative); Urobilinogen,Urine < 2.0 mg/dL (<2.0)
[2020-11-19 20:53] LABS: Amphetamine Screen,Urine Negative; Benzodiazepines Screen,Urine Negative; Cannabinoid Screen,Urine Negative; Cocaine Screen,Urine Negative; Methadone Screen,Urine Negative; Opiate Screen,Urine Negative
[2020-11-19] MEDS: metroNIDAZOLE/NS 500 MG/100 ML 500 MG/100 ML BAG IV SCH (22:02)
[2020-11-19] MEDS: D5W/0.9% NACL 1,000 ML IV SCH (23:00)
[2020-11-20] MEDS: PIPERACILLIN/TAZOBACTAM 3.375 3.375 GM/50 ML BAG IV SCH (03:43)
[2020-11-20] MEDS: metroNIDAZOLE/NS 500 MG/100 ML 500 MG/100 ML BAG IV SCH (04:20)
[2020-11-20] MEDS: MORPHINE 2 MG/1 ML INJ IV PRN ×3 (04:23→15:19)
[2020-11-20] MEDS: PANTOPRAZOLE 40 MG INJ IV SCH ×2 (06:22→17:05)
--- NOTE | 2020-11-20 08:01 | Progress Note ---
Assessment and Plan Assessment and plan: --Acute /chronic pancreatitis/alcohol related Current Visit: No Status: Acute Patient is on IV fluids, n.p.o., pain medications, supportive care Closely monitor, adjust the management as needed Clear liquids if symptoms improved Antiemetics, IV Protonix GI consult if no improvement --Acute kidney injury; Current Visit: Yes Status: Acute secondary to prerenal azotemia ATN Aggressive volume replacement follow electrolytes. Monitor renal function avoid nephrotoxins --Alcohol withdrawal delirium Current Visit: No Status: Acute No alcohol withdrawal symptoms like tremulousness agitation On CIWA protocol ,Thiamine folic acid Counseling done and advised to quit alcohol intake Patient verbalized understanding --History of chronic ETOH abuse Current Visit: No Status: Chronic Education given to the patient advised to quit Also advised to seek alcohol rehabilitation And alcohol Anonymous support group --Hypertension Current Visit: No Status: Chronic Patient somewhat hypotensive. Will hold blood pressure medicines hydralazine 10 mg IV every 4 hours as needed . --Ongoing tobacco use Current Visit: No Status: Chronic Smoking cessation counseling done Strongly advised nicotine patch. --Sepsis/secondary to UTI/pancreatitis Current Visit: No Status: Suspected Leukocytosis, tachycardia, lactic acidosis and UTI/pancreatitis Empiric antibiotics, follow cultures, supportive care, IV fluids ID consult if needed --Severe protein calorie malnutrition Current Visit: No Status: Acute Hypoalbuminemia , albumin 2.8 Nutrition supplements, nutrition consult and supportive care -- Metabolic acidosis Current Visit: Yes Status: Acute Plan to address problem: Secondary to uremia as well as chronic pancreatitis treat underlying etiology. --DVT prophylaxis Current Visit: Yes Status: Acute Heparin Advance Directives: Yes VTE prophylaxis?: Chemical Plan of care discussed with patient/family: Yes Plan of care reviewed with the patient and his nurse Closely monitor the patient and adjust management as needed Patient is stable to be transferred out of [facility] to telemetry today Possible discharge in 1 to 2 days if stable Critical care time 35 minutes History Interval history: I have seen and examined the patient at the bedside this morning in [facility] Patient's chart and medications reviewed Patient is admitted for alcohol withdrawal symptoms on CIWA protocol Did not require any Ativan No tremulousness or agitation Alert awake oriented x3 Vital signs noted Hospitalist Physical - Constitutional Vitals: Temp Pulse Resp BP Pulse Ox 97.8 F 97 H 23 131/64 98 11/20/20 04:00 11/20/20 06:31 11/20/20 06:31 11/20/20 06:31 11/20/20 06:31 General appearance: Present: no acute distress, well-nourished, other (No tremulousness or agitation) - EENT Eyes: Present: PERRL, EOM intact - Neck Neck: Present: supple, normal ROM - Respiratory Respiratory effort: normal Respiratory: bilateral: diminished, negative: rales, rhonchi, wheezing - Cardiovascular Rhythm: regular Heart Sounds: Present: S1 & S2 - Extremities Extremities: no ischemia, No edema - Abdominal General gastrointestinal: soft, non-tender, non-distended, normal bowel sounds - Integumentary Integumentary: Present: clear, warm - Psychiatric Psychiatric: appropriate mood/affect, cooperative - Neurologic Neurologic: CNII-XII intact, moves all extremities HEART Score - HEART Score Troponin: Troponin T < 0.010 ng/mL (0.00-0.029) 11/19/20 22:51 Results - Labs CBC & Chem 7: 11/20/20 07:58 11/20/20 07:58 Labs: Laboratory Last Values WBC 29.1 K/mm3 (4.5-11.0) H 11/19/20 16:44 RBC 4.63 M/mm3 (3.65-5.03) 11/19/20 16:44 Hgb 11.8 gm/dl (11.8-15.2) 11/19/20 16:44 Hct 35.6 % (35.5-45.6) 11/19/20 16:44 MCV 77 fl (84-94) L 11/19/20 16:44 MCH 26 pg (28-32) L 11/19/20 16:44 MCHC 33 % (32-34) 11/19/20 16:44 RDW 19.0 % (13.2-15.2) H 11/19/20 16:44 Plt Count 525 K/mm3 (140-440) H 11/19/20 16:44 Add Manual Diff Complete 11/19/20 16:44 Total Counted 200 11/19/20 16:44 Seg Neutrophils % Band Bias Machine Operator 11/19/20 16:44 Seg Neuts % (Manual) 95.0 % (40.0-70.0) H 11/19/20 16:44 Band Neutrophils % 1.0 % 11/19/20 16:44 Lymphocytes % (Manual) 1.5 % (13.4-35.0) L 11/19/20 16:44 Monocytes % (Manual) 2.5 % (0.0-7.3) 11/19/20 16:44 Nucleated RBC % Not Reportable 11/19/20 16:44 Seg Neutrophils # Man 27.6 K/mm3 (1.8-7.7) H 11/19/20 16:44 Band Neutrophils # 0.3 K/mm3 11/19/20 16:44 Lymphocytes # (Manual) 0.4 K/mm3 (1.2-5.4) L 11/19/20 16:44 Abs React Lymphs (Man) 0.0 K/mm3 11/19/20 16:44 Monocytes # (Manual) 0.7 K/mm3 (0.0-0.8) 11/19/20 16:44 Eosinophils # (Manual) 0.0 K/mm3 (0.0-0.4) 11/19/20 16:44 Basophils # (Manual) 0.0 K/mm3 (0.0-0.1) 11/19/20 16:44 Metamyelocytes # 0.0 K/mm3 11/19/20 16:44 Myelocytes # 0.0 K/mm3 11/19/20 16:44 Promyelocytes # 0.0 K/mm3 11/19/20 16:44 Blast Cells # 0.0 K/mm3 11/19/20 16:44 WBC Morphology Not Reportable 11/19/20 16:44 Hypersegmented Neuts Not Reportable 11/19/20 16:44 Hyposegmented Neuts Not Reportable 11/19/20 16:44 Hypogranular Neuts Not Reportable 11/19/20 16:44 Smudge Cells Not Reportable 11/19/20 16:44 Toxic Granulation Not Reportable 11/19/20 16:44 Toxic Vacuolation Not Reportable 11/19/20 16:44 Dohle Bodies Not Reportable 11/19/20 16:44 Pelger-Huet Anomaly Not Reportable 11/19/20 16:44 Aiden Rods Not Reportable 11/19/20 16:44 Platelet Estimate Consistent w auto 11/19/20 16:44 Clumped Platelets Not Reportable 11/19/20 16:44 Plt Clumps, EDTA Not Reportable 11/19/20 16:44 Large Platelets Not Reportable 11/19/20 16:44 Giant Platelets Not Reportable 11/19/20 16:44 Platelet Satelliting Not Reportable 11/19/20 16:44 Plt Morphology Comment Not Reportable 11/19/20 16:44 RBC Morphology Not Reportable 11/19/20 16:44 Dimorphic RBCs Not Reportable 11/19/20 16:44 Polychromasia Not Reportable 11/19/20 16:44 Hypochromasia 1+ 11/19/20 16:44 Poikilocytosis Not Reportable 11/19/20 16:44 Anisocytosis 1+ 11/19/20 16:44 Microcytosis Not Reportable 11/19/20 16:44 Macrocytosis Not Reportable 11/19/20 16:44 Spherocytes Not Reportable 11/19/20 16:44 Pappenheimer Bodies Not Reportable 11/19/20 16:44 Sickle Cells Not Reportable 11/19/20 16:44 Target Cells Few 11/19/20 16:44 Tear Drop Cells Not Reportable 11/19/20 16:44 Ovalocytes Not Reportable 11/19/20 16:44 Helmet Cells Not Reportable 11/19/20 16:44 [place] Bodies Not Reportable 11/19/20 16:44 Beacon Rings Not Reportable 11/19/20 16:44 Ogema Cells Not Reportable 11/19/20 16:44 Bite Cells Not Reportable 11/19/20 16:44 Crenated Cell Not Reportable 11/19/20 16:44 Elliptocytes Not Reportable 11/19/20 16:44 Acanthocytes (Spur) Not Reportable 11/19/20 16:44 Rouleaux Not Reportable 11/19/20 16:44 Hemoglobin C Crystals Not Reportable 11/19/20 16:44 Schistocytes Not Reportable 11/19/20 16:44 Malaria parasites Not Reportable 11/19/20 16:44 Florin Bodies Not Reportable 11/19/20 16:44 Hem Pathologist Commnt No 11/19/20 16:44 PT 16.1 Sec. (12.2-14.9) H 11/19/20 16:44 INR 1.24 (0.87-1.13) H 11/19/20 16:44 APTT 34.3 Sec. (24.2-36.6) 11/19/20 16:44 D-Dimer 1767.06 ng/mlDDU (0-234) H 11/19/20 16:44 Sodium 125 mmol/L (137-145) L 11/19/20 16:44 Potassium 4.1 mmol/L (3.6-5.0) 11/19/20 16:44 Chloride 93.6 mmol/L (98-107) L 11/19/20 16:44 Carbon Dioxide 10 mmol/L (22-30) L 11/19/20 16:44 Anion Gap 26 mmol/L 11/19/20 16:44 BUN 90 mg/dL (9-20) H 11/19/20 16:44 Creatinine 1.6 mg/dL (0.8-1.3) H 11/19/20 16:44 Estimated GFR 54 ml/min 11/19/20 16:44 BUN/Creatinine Ratio 56 % 11/19/20 16:44 Glucose 143 mg/dL (75-100) H 11/19/20 16:44 POC Glucose 119 mg/dL (70-105) H 11/19/20 23:28 Lactic Acid 3.10 mmol/L (0.7-2.0) H* 11/19/20 18:28 Calcium 9.7 mg/dL (8.4-10.2) 11/19/20 16:44 Magnesium 2.90 mg/dL (1.7-2.3) H 11/19/20 16:44 Total Bilirubin 0.50 mg/dL (0.1-1.2) 11/19/20 16:44 Direct Bilirubin 0.2 mg/dL (0-0.2) 11/19/20 16:44 Indirect Bilirubin 0.3 mg/dL 11/19/20 16:44 AST 26 units/L (5-40) 11/19/20 16:44 ALT 20 units/L (7-56) 11/19/20 16:44 Alkaline Phosphatase 163 units/L (35-129) H 11/19/20 16:44 Total Creatine Kinase 26 units/L (55-170) L 11/19/20 16:44 CK-MB (CK-2) < 1.0 ng/mL (0.0-4.0) 11/19/20 16:44 CK-MB (CK-2) Rel Index 3.8 (0-4) 11/19/20 16:44 Troponin T < 0.010 ng/mL (0.00-0.029) 11/19/20 22:51 NT-Pro-B Natriuret Pep 454.0 pg/mL (0-900) 11/19/20 16:44 Total Protein 7.6 g/dL (6.3-8.2) 11/19/20 16:44 Albumin 2.7 g/dL (3.9-5) L 11/19/20 16:44 Albumin/Globulin Ratio 0.6 % 11/19/20 16:44 Lipase 141 units/L (13-60) H 11/19/20 16:49 Urine Color Yellow (Yellow) 11/19/20 19:18 Urine Turbidity Slightly-cloudy (Clear) 11/19/20 19:18 Urine pH 5.0 (5.0-7.0) 11/19/20 19:18 Ur Specific [place] 1.023 (1.003-1.030) 11/19/20 19:18 Urine Protein <15 mg/dl mg/dL (Negative) 11/19/20 19:18 Urine Glucose (UA) Neg mg/dL (Negative) 11/19/20 19:18 Urine Ketones Neg mg/dL (Negative) 11/19/20 19:18 Urine Blood Neg (Negative) 11/19/20 19:18 Urine Nitrite Neg (Negative) 11/19/20 19:18 Urine Bilirubin Neg (Negative) 11/19/20 19:18 Urine Urobilinogen < 2.0 mg/dL (<2.0) 11/19/20 19:18 Ur Leukocyte Esterase Mod (Negative) 11/19/20 19:18 Urine WBC (Auto) 33.0 /HPF (0.0-6.0) H 11/19/20 19:18 Urine RBC (Auto) 4.0 /HPF (0.0-6.0) 11/19/20 19:18 U Epithel Cells (Auto) 6.0 /HPF (0-13.0) 11/19/20 19:18 Urine Bacteria (Auto) 1+ /HPF (Negative) 11/19/20 19:18 Hyaline Casts 1 /LPF 11/19/20 19:18 Urine Mucus Few /HPF 11/19/20 19:18 Urine Opiates Screen Negative 11/19/20 19:18 Urine Methadone Screen Negative 11/19/20 19:18 Ur Barbiturates Screen Negative 11/19/20 19:18 Ur Phencyclidine Scrn Negative 11/19/20 19:18 Ur Amphetamines Screen Negative 11/19/20 19:18 U Benzodiazepines Scrn Negative 11/19/20 19:18 Urine Cocaine Screen Negative 11/19/20 19:18 U Marijuana (THC) Screen Negative 11/19/20 19:18 Drugs of Abuse Note Disclamer 11/19/20 19:18 Microbiology: Microbiology 11/19/20 18:28 Peripheral/Venous Blood Culture - Preliminary Culture in Progress 11/19/20 18:38 Peripheral/Venous Blood Culture - Preliminary Culture in Progress Viramontes/IV: Voiding Method Condom Catheter Active Medications - Current Medications Current Medications: Generic Name Dose Route Start Last Admin Trade Name Freq PRN Reason Stop Dose Admin Enoxaparin Sodium 40 mg 11/19/20 19:00 11/19/20 19:55 Enoxaparin 40 Mg/0.4 Ml Inj SUB-Q 40 mg QDAY JANNETH Administration Haloperidol Lactate 5 mg 11/19/20 20:23 Haloperidol Lactate 5 Mg/1 Ml Inj IV Q1HR PRN Unrespon. to mult. doses BZD's Hydralazine HCl 10 mg 11/19/20 18:18 Hydralazine 20 Mg/1 Ml Inj IV Q4HR PRN Hypertension Dextrose/Sodium Chloride 1,000 mls @ 125 mls/hr 11/19/20 19:00 11/19/20 23:00 D5ns IV 125 mls/hr DIRECT JANNETH Administration Piperacillin Sod/Tazobactam Sod 4.5 gm in 100 mls @ 200 mls/hr 11/20/20 14:00 Zosyn/Ns 4.5gm/100ml IV Q8HR JANNETH Protocol Lorazepam 4 mg 11/19/20 20:23 Lorazepam 2 Mg/Ml Vial IV Q1HR PRN CIWA-Ar 16-25 Morphine Sulfate 4 mg 11/19/20 18:11 11/20/20 04:23 Morphine 2 Mg/1 Ml Inj IV 4 mg Q4H PRN Administration Pain, Moderate (4-6) Naloxone HCl 0.1 mg 11/19/20 18:11 Naloxone 0.4 Mg/1 Ml Inj IV Q2MIN PRN Res Rate </= 8 or 02 SAT < 92% Ondansetron HCl 4 mg 11/19/20 18:11 Ondansetron 4 Mg/2 Ml Inj IV Q8H PRN Nausea And Vomiting Pantoprazole Sodium 40 mg 11/20/20 06:00 11/20/20 06:22 Pantoprazole 40 Mg Inj IV 40 mg Q12H JANNETH Administration Sodium Chloride 10 ml 11/19/20 22:00 11/19/20 22:02 Sodium Chloride 0.9% 10 Ml Flush Syringe IV 10 ml BID JANNETH Administration Sodium Chloride 10 ml 11/19/20 19:11 Sodium Chloride 0.9% 10 Ml Flush Syringe IV PRN PRN LINE FLUSH
[2020-11-20 08:28] LABS: Hematocrit 33.2 % (35.5-45.6); Hemoglobin 11.4 gm/dl (11.8-15.2); Mean Corpuscular HGB Conc 35 % (32-34); Mean Corpuscular Volume 77 fl (84-94); Platelet Count 439 K/mm3 (140-440); Red Blood Count 4.32 M/mm3 (3.65-5.03); Red Cell Distribution Width 19.2 % (13.2-15.2)
[2020-11-20 08:41] LABS: Alanine Aminotransferase 17 units/L (7-56); Albumin 2.1 g/dL (3.9-5); BUN/Creatinine Ratio 58; Blood Urea Nitrogen 58 mg/dL (9-20); Calcium 9.4 mg/dL (8.4-10.2); Hemolysis Index 6
[2020-11-20] MEDS: ENOXAPARIN 40 MG/0.4 ML INJ SUB-Q SCH (09:34)
[2020-11-20] MEDS: LOSARTAN 50 MG TAB PO SCH (09:35)
[2020-11-20] MEDS: FOLIC ACID 1 MG TAB PO SCH (09:35)
[2020-11-20] MEDS: D5W/0.9% NACL 1,000 ML IV SCH ×2 (10:59→20:11)
[2020-11-20] MEDS: ACETAMINOPHEN 325 MG TAB PO PRN ×2 (13:44→20:05)
[2020-11-20] MEDS: PIPERACIL/TAZOBACTA 4.5/NS 100 4.5 GM/100 ML VIAL IV SCH ×2 (13:44→21:26)
[2020-11-20 14:35] LABS: Anisocytosis 1+; Band Neutrophils # (Manual) 2.2 K/mm3; Hypochromasia 1+; Platelet Estimate Consistent w Auto; Target Cells 1+; Total Cells Counted 100
[2020-11-20] MEDS: ONDANSETRON 4 MG/2 ML INJ IV PRN (15:18)
[2020-11-20] MEDS: LORazepam 2 MG/ML VIAL IV PRN (20:02)
[2020-11-20] MEDS: HALOPERIDOL LACTATE 5 MG/1 ML INJ IV PRN (20:04)
[2020-11-21] MEDS: MORPHINE 2 MG/1 ML INJ IV PRN (02:48)
[2020-11-21] MEDS: LORazepam 2 MG/ML VIAL IV PRN ×3 (02:49→21:35)
[2020-11-21] MEDS: HALOPERIDOL LACTATE 5 MG/1 ML INJ IV PRN (06:16)
[2020-11-21] MEDS: PIPERACIL/TAZOBACTA 4.5/NS 100 4.5 GM/100 ML VIAL IV SCH ×3 (06:20→21:36)
[2020-11-21] MEDS: D5W/0.9% NACL 1,000 ML IV SCH (06:20)
[2020-11-21] MEDS: PANTOPRAZOLE 40 MG INJ IV SCH (06:21)
[2020-11-21] MEDS: FOLIC ACID 1 MG TAB PO SCH (09:14)
[2020-11-21] MEDS: LOSARTAN 50 MG TAB PO SCH (09:14)
[2020-11-21] MEDS: ENOXAPARIN 40 MG/0.4 ML INJ SUB-Q SCH (09:15)
[2020-11-21] MEDS: ALBUTEROL 2.5 MG/3 ML NEBU IH SCH ×3 (10:01→20:37)
--- NOTE | 2020-11-21 11:22 | Progress Note ---
Assessment and Plan Assessment and plan: --Alcohol withdrawal delirium Current Visit: No Status: Acute Patient has tremulousness, agitation And severe confusion due to alcohol withdrawal symptoms Continue CIWA protocol ,Thiamine folic acid Restraints as needed --Acute /chronic pancreatitis/alcohol related Current Visit: No Status: Acute Symptoms significantly improved Tolerating clear liquids advance diet to regular Antiemetics, IV Protonix GI consult if no improvement --Acute kidney injury; Current Visit: Yes Status: Acute secondary to prerenal azotemia ATN Resolved --History of chronic ETOH abuse Current Visit: No Status: Chronic Education given to the patient advised to quit Also advised to seek alcohol rehabilitation And alcohol Anonymous support group When medically stable --Hypertension Current Visit: No Status: Chronic Patient somewhat hypotensive. Will hold blood pressure medicines hydralazine 10 mg IV every 4 hours as needed . --Ongoing tobacco use Current Visit: No Status: Chronic Smoking cessation counseling Strongly advised nicotine patch. --Sepsis/secondary to UTI/pancreatitis Current Visit: No Status: Suspected Leukocytosis, tachycardia, lactic acidosis and UTI/pancreatitis Empiric antibiotics, follow cultures, supportive care, IV fluids Urine cultures positive for gram-negative rods Continue Zosyn follow culture sensitivities --Severe protein calorie malnutrition Current Visit: No Status: Acute Hypoalbuminemia , albumin 2.8 Nutrition supplements, nutrition consult and supportive care -- Metabolic acidosis Current Visit: Yes Status: Acute Plan to address problem: Secondary to uremia as well as chronic pancreatitis treat underlying etiology. --DVT prophylaxis Current Visit: Yes Status: Acute Heparin Restraint for safety We will closely monitor the patient and adjust management as needed Plan of care reviewed with the patient and his nurse Patient is severely agitated confused on CIWA protocol, Restraints as needed Patient is restraint for safety patient is restraint for safety mood 11/20/2020; patient feels slightly better, no significant withdrawal symptoms Patient is on CIWA protocol, stable to be transferred out of [facility] to medical floor 11/21/2020; patient has severe agitation tremulousness, patient is on CIWA protocol Closely monitor withdrawal symptoms, adjust the medications as needed Advance diet to regular as tolerated. History Interval history: I have seen and examined the patient at this morning Patient's chart and medications reviewed Patient is severely confused agitated, requiring restraints Patient is on CIWA protocol requiring Ativan Vital signs noted Hospitalist Physical - Constitutional Vitals: Temp Pulse Resp BP Pulse Ox 99.0 F 121 H 18 138/81 97 11/21/20 07:46 11/21/20 10:00 11/21/20 10:00 11/21/20 09:14 11/21/20 10:52 General appearance: Present: mild distress, well-nourished, other (Agitated, confused and tremulous, on CIWA protocol) - EENT Eyes: Present: PERRL, EOM intact - Neck Neck: Present: supple, normal ROM - Respiratory Respiratory effort: normal Respiratory: bilateral: diminished, negative: rales, rhonchi, wheezing - Cardiovascular Rhythm: regular Heart Sounds: Present: S1 & S2 (Tachycardia) - Extremities Extremities: no ischemia, No edema - Abdominal General gastrointestinal: soft, non-tender, non-distended, normal bowel sounds - Integumentary Integumentary: Present: clear, warm - Psychiatric Psychiatric: agitated (Tremulous), other (Confused) - Neurologic Neurologic: moves all extremities HEART Score - HEART Score Troponin: Troponin T < 0.010 ng/mL (0.00-0.029) 11/19/20 22:51 Results - Labs CBC & Chem 7: 11/20/20 07:58 11/20/20 07:58 Labs: Laboratory Last Values WBC 22.0 K/mm3 (4.5-11.0) H 11/20/20 07:58 RBC 4.32 M/mm3 (3.65-5.03) 11/20/20 07:58 Hgb 11.4 gm/dl (11.8-15.2) L 11/20/20 07:58 Hct 33.2 % (35.5-45.6) L 11/20/20 07:58 MCV 77 fl (84-94) L 11/20/20 07:58 MCH 27 pg (28-32) L 11/20/20 07:58 MCHC 35 % (32-34) H 11/20/20 07:58 RDW 19.2 % (13.2-15.2) H 11/20/20 07:58 Plt Count 439 K/mm3 (140-440) 11/20/20 07:58 Lymph # (Auto) Analytical Chemist 11/20/20 07:58 Add Manual Diff Complete 11/20/20 07:58 Total Counted 100 11/20/20 07:58 Seg Neutrophils % Analytical Chemist 11/19/20 16:44 Seg Neuts % (Manual) 78.0 % (40.0-70.0) H 11/20/20 07:58 Band Neutrophils % 10.0 % 11/20/20 07:58 Lymphocytes % (Manual) 3.0 % (13.4-35.0) L 11/20/20 07:58 Monocytes % (Manual) 9.0 % (0.0-7.3) H 11/20/20 07:58 Nucleated RBC % 1.0 % (0.0-0.9) H 11/20/20 07:58 Seg Neutrophils # Man 17.2 K/mm3 (1.8-7.7) H 11/20/20 07:58 Band Neutrophils # 2.2 K/mm3 11/20/20 07:58 Lymphocytes # (Manual) 0.7 K/mm3 (1.2-5.4) L 11/20/20 07:58 Abs React Lymphs (Man) 0.0 K/mm3 11/20/20 07:58 Monocytes # (Manual) 2.0 K/mm3 (0.0-0.8) H 11/20/20 07:58 Eosinophils # (Manual) 0.0 K/mm3 (0.0-0.4) 11/20/20 07:58 Basophils # (Manual) 0.0 K/mm3 (0.0-0.1) 11/20/20 07:58 Metamyelocytes # 0.0 K/mm3 11/20/20 07:58 Myelocytes # 0.0 K/mm3 11/20/20 07:58 Promyelocytes # 0.0 K/mm3 11/20/20 07:58 Blast Cells # 0.0 K/mm3 11/20/20 07:58 WBC Morphology Not Reportable 11/20/20 07:58 Hypersegmented Neuts Not Reportable 11/20/20 07:58 Hyposegmented Neuts Not Reportable 11/20/20 07:58 Hypogranular Neuts Not Reportable 11/20/20 07:58 Smudge Cells Not Reportable 11/20/20 07:58 Toxic Granulation Not Reportable 11/20/20 07:58 Toxic Vacuolation Not Reportable 11/20/20 07:58 Dohle Bodies Not Reportable 11/20/20 07:58 Pelger-Huet Anomaly Not Reportable 11/20/20 07:58 Aiden Rods Not Reportable 11/20/20 07:58 Platelet Estimate Consistent w auto 11/20/20 07:58 Clumped Platelets Not Reportable 11/20/20 07:58 Plt Clumps, EDTA Not Reportable 11/20/20 07:58 Large Platelets Not Reportable 11/20/20 07:58 Giant Platelets Not Reportable 11/20/20 07:58 Platelet Satelliting Not Reportable 11/20/20 07:58 Plt Morphology Comment Not Reportable 11/20/20 07:58 RBC Morphology Not Reportable 11/20/20 07:58 Dimorphic RBCs Not Reportable 11/20/20 07:58 Polychromasia Not Reportable 11/20/20 07:58 Hypochromasia 1+ 11/20/20 07:58 Poikilocytosis Not Reportable 11/20/20 07:58 Anisocytosis 1+ 11/20/20 07:58 Microcytosis Not Reportable 11/20/20 07:58 Macrocytosis Not Reportable 11/20/20 07:58 Spherocytes Not Reportable 11/20/20 07:58 Pappenheimer Bodies Not Reportable 11/20/20 07:58 Sickle Cells Not Reportable 11/20/20 07:58 Target Cells 1+ 11/20/20 07:58 Tear Drop Cells Not Reportable 11/20/20 07:58 Ovalocytes Not Reportable 11/20/20 07:58 Helmet Cells Not Reportable 11/20/20 07:58 Lux-Hibernia Bodies Not Reportable 11/20/20 07:58 [place] Rings Not Reportable 11/20/20 07:58 [place] Cells Not Reportable 11/20/20 07:58 Bite Cells Not Reportable 11/20/20 07:58 Crenated Cell Not Reportable 11/20/20 07:58 Elliptocytes Not Reportable 11/20/20 07:58 Acanthocytes (Spur) Not Reportable 11/20/20 07:58 Rouleaux Not Reportable 11/20/20 07:58 Hemoglobin C Crystals Not Reportable 11/20/20 07:58 Schistocytes Not Reportable 11/20/20 07:58 Malaria parasites Not Reportable 11/20/20 07:58 Florin Bodies Not Reportable 11/20/20 07:58 Hem Pathologist Commnt No 11/20/20 07:58 PT 16.1 Sec. (12.2-14.9) H 11/19/20 16:44 INR 1.24 (0.87-1.13) H 11/19/20 16:44 APTT 34.3 Sec. (24.2-36.6) 11/19/20 16:44 D-Dimer 1767.06 ng/mlDDU (0-234) H 11/19/20 16:44 Sodium 136 mmol/L (137-145) L D 11/20/20 07:58 Potassium 4.6 mmol/L (3.6-5.0) 11/20/20 07:58 Chloride 106.6 mmol/L (98-107) 11/20/20 07:58 Carbon Dioxide 15 mmol/L (22-30) L 11/20/20 07:58 Anion Gap 19 mmol/L 11/20/20 07:58 BUN 58 mg/dL (9-20) H 11/20/20 07:58 Creatinine 1.0 mg/dL (0.8-1.3) 11/20/20 07:58 Estimated GFR > 60 ml/min 11/20/20 07:58 BUN/Creatinine Ratio 58 % 11/20/20 07:58 Glucose 161 mg/dL (75-100) H 11/20/20 07:58 POC Glucose 187 mg/dL (70-105) H 11/21/20 05:45 Lactic Acid 3.10 mmol/L (0.7-2.0) H* 11/19/20 18:28 Calcium 9.4 mg/dL (8.4-10.2) 11/20/20 07:58 Magnesium 2.90 mg/dL (1.7-2.3) H 11/19/20 16:44 Total Bilirubin 0.60 mg/dL (0.1-1.2) 11/20/20 07:58 Direct Bilirubin 0.2 mg/dL (0-0.2) 11/19/20 16:44 Indirect Bilirubin 0.3 mg/dL 11/19/20 16:44 AST 21 units/L (5-40) 11/20/20 07:58 ALT 17 units/L (7-56) 11/20/20 07:58 Alkaline Phosphatase 134 units/L (35-129) H 11/20/20 07:58 Total Creatine Kinase 26 units/L (55-170) L 11/19/20 16:44 CK-MB (CK-2) < 1.0 ng/mL (0.0-4.0) 11/19/20 16:44 CK-MB (CK-2) Rel Index 3.8 (0-4) 11/19/20 16:44 Troponin T < 0.010 ng/mL (0.00-0.029) 11/19/20 22:51 NT-Pro-B Natriuret Pep 454.0 pg/mL (0-900) 11/19/20 16:44 Total Protein 6.4 g/dL (6.3-8.2) 11/20/20 07:58 Albumin 2.1 g/dL (3.9-5) L 11/20/20 07:58 Albumin/Globulin Ratio 0.5 % 11/20/20 07:58 Lipase 67 units/L (13-60) H 11/20/20 07:58 Urine Color Yellow (Yellow) 11/19/20 19:18 Urine Turbidity Slightly-cloudy (Clear) 11/19/20 19:18 Urine pH 5.0 (5.0-7.0) 11/19/20 19:18 Ur Specific [place] 1.023 (1.003-1.030) 11/19/20 19:18 Urine Protein <15 mg/dl mg/dL (Negative) 11/19/20 19:18 Urine Glucose (UA) Neg mg/dL (Negative) 11/19/20 19:18 Urine Ketones Neg mg/dL (Negative) 11/19/20 19:18 Urine Blood Neg (Negative) 11/19/20 19:18 Urine Nitrite Neg (Negative) 11/19/20 19:18 Urine Bilirubin Neg (Negative) 11/19/20 19:18 Urine Urobilinogen < 2.0 mg/dL (<2.0) 11/19/20 19:18 Ur Leukocyte Esterase Mod (Negative) 11/19/20 19:18 Urine WBC (Auto) 33.0 /HPF (0.0-6.0) H 11/19/20 19:18 Urine RBC (Auto) 4.0 /HPF (0.0-6.0) 11/19/20 19:18 U Epithel Cells (Auto) 6.0 /HPF (0-13.0) 11/19/20 19:18 Urine Bacteria (Auto) 1+ /HPF (Negative) 11/19/20 19:18 Hyaline Casts 1 /LPF 11/19/20 19:18 Urine Mucus Few /HPF 11/19/20 19:18 Urine Opiates Screen Negative 11/19/20 19:18 Urine Methadone Screen Negative 11/19/20 19:18 Ur Barbiturates Screen Negative 11/19/20 19:18 Ur Phencyclidine Scrn Negative 11/19/20 19:18 Ur Amphetamines Screen Negative 11/19/20 19:18 U Benzodiazepines Scrn Negative 11/19/20 19:18 Urine Cocaine Screen Negative 11/19/20 19:18 U Marijuana (THC) Screen Negative 11/19/20 19:18 Drugs of Abuse Note Disclamer 11/19/20 19:18 Microbiology: Microbiology 11/19/20 19:18 Urine,Clean Catch Urine Culture - Preliminary Gram Negative [place] 11/19/20 18:28 Peripheral/Venous Blood Culture - Preliminary NO GROWTH AFTER 24 HOURS 11/19/20 18:38 Peripheral/Venous Blood Culture - Preliminary NO GROWTH AFTER 24 HOURS Viramontes/IV: Voiding Method Condom Catheter Active Medications - Current Medications Current Medications: Generic Name Dose Route Start Last Admin Trade Name Freq PRN Reason Stop Dose Admin Acetaminophen 650 mg 11/20/20 14:00 11/20/20 20:05 Acetaminophen 325 Mg Tab PO 650 mg Q6H PRN Administration Pain, Mild (1-3) Albuterol 2.5 mg 11/21/20 09:51 11/21/20 10:01 Albuterol 2.5 Mg/3 Ml Nebu IH 2.5 mg TIDRT JANNETH Administration Enoxaparin Sodium 40 mg 11/19/20 19:00 11/21/20 09:15 Enoxaparin 40 Mg/0.4 Ml Inj SUB-Q 40 mg QDAY JANNETH Administration Folic Acid 1 mg 11/20/20 10:00 11/21/20 09:14 Folic Acid 1 Mg Tab PO 1 mg QDAY JANNETH Administration Haloperidol Lactate 5 mg 11/19/20 20:23 11/21/20 06:16 Haloperidol Lactate 5 Mg/1 Ml Inj IV 5 mg Q1HR PRN Administration Unrespon. to mult. doses BZD's Hydralazine HCl 10 mg 11/19/20 18:18 Hydralazine 20 Mg/1 Ml Inj IV Q4HR PRN Hypertension Dextrose/Sodium Chloride 1,000 mls @ 125 mls/hr 11/19/20 19:00 11/21/20 06:20 D5ns IV 125 mls/hr DIRECT JANNETH Administration Piperacillin Sod/Tazobactam Sod 4.5 gm in 100 mls @ 200 mls/hr 11/20/20 14:00 11/21/20 06:20 Zosyn/Ns 4.5gm/100ml IV 200 mls/hr Q8HR JANNETH Administration Protocol Lorazepam 4 mg 11/19/20 20:23 11/21/20 02:49 Lorazepam 2 Mg/Ml Vial IV 4 mg Q1HR PRN [facility] Los[facility] Potassium 100 mg 11/20/20 10:00 11/21/20 09:14 Losartan 50 Mg Tab PO 100 mg QDAY JANNETH Administration Morphine Sulfate 2 mg 11/20/20 10:30 11/21/20 02:48 Morphine 2 Mg/1 Ml Inj IV 2 mg Q6H PRN Administration Pain, Moderate (4-6) Naloxone HCl 0.1 mg 11/19/20 18:11 Naloxone 0.4 Mg/1 Ml Inj IV Q2MIN PRN Res Rate </= 8 or 02 SAT < 92% Ondansetron HCl 4 mg 11/19/20 18:11 11/20/20 15:18 Ondansetron 4 Mg/2 Ml Inj IV 4 mg Q8H PRN Administration Nausea And Vomiting Pantoprazole Sodium 40 mg 11/21/20 16:30 Pantoprazole 40 Mg Tab PO BIDAC JANNETH Sodium Chloride 10 ml 11/19/20 22:00 11/21/20 09:15 Sodium Chloride 0.9% 10 Ml Flush Syringe IV 10 ml BID JANNETH Administration Sodium Chloride 10 ml 11/19/20 19:11 11/21/20 06:21 Sodium Chloride 0.9% 10 Ml Flush Syringe IV 10 ml PRN PRN Administration LINE FLUSH Nutrition/Malnutrition Assess - Dietary Evaluation Nutrition/Malnutrition Findings: Nutrition Notes Start: 11/20/20 12:00 Freq: Status: Active Protocol: Document 11/20/20 12:00 JAMES (Rec: 11/20/20 12:07 JAMES [email or web address]) Nutrition Notes Need for Assessment generated from: MD Order,digital media director,MST Initial or Follow up Assessment Current Diagnosis Sepsis,Hypertension, Hyperlipidemia Other Pertinent Diagnosis Acute alcoholic pancreatitis, EtOH withdrawal delirium, ARF, GERD Current Diet Cl liq (as of lunch today) Labs/Tests BG 161 BUN 58 Lipase 67 Pertinent Medications D5NS at 125ml/hr, Folic acid, Protonix Height 5 ft 10 in Weight 81.64 kg [place] Body Weight (kg) 75.45 BMI 25.8 Weight Status Appropriate Subjective/Other Information RD consulted for malnutrition; pt also screened for malnutrition risk. Per records, pt unable to tolerate food 2-3 days [employer]IOR [employer]. Pt on CIWA protocol. Unable to reach pt via phone at 12:05. Burn Absent Trauma Absent Minimum of two criteria No #1 Nutrition Diagnosis Altered GI function Etiology hx of recurrent pancreatitis and EtOH dependency As Evidenced by Signs and Symptoms pt on cl liq diet; was unable to tolerate PO intake [employer] Is patient on ventilator? No Is Patient Ambulatory and/or Out of Bed No REE-([facility]-confined to bed) [phone] Calculation Used for Recommendations [facility] Additional Notes Pro needs 1-1.2g/k-98g/ day Fluid needs 1ml/kcal Nutrition Intervention Change Diet Order: Add Consistent CHO restriction to current diet order; advance diet as tolerated Goal #1 PO tolerance Anticipated Discharge Needs: CHO-controlled, low fat diet Follow-Up By: 11/22/20 Additional Comments F/U: diet advancement, PO tolerance, MST assessment
[2020-11-21] MEDS: ACETAMINOPHEN 325 MG TAB PO PRN (11:57)
[2020-11-21] MEDS: ONDANSETRON 4 MG/2 ML INJ IV PRN (12:23)
[2020-11-21] MEDS ORDERED: ALBUTEROL 2.5 MG/3 ML NEBU IH SCH (14:00)
[2020-11-21] MEDS: PANTOPRAZOLE 40 MG TAB PO SCH (16:15)
[2020-11-21] MEDS ORDERED: LORazepam 2 MG/ML VIAL IV PRN (16:22)
[2020-11-22] MEDS: ACETAMINOPHEN 325 MG TAB PO PRN (01:00)
[2020-11-22] MEDS: MORPHINE 2 MG/1 ML INJ IV PRN (02:12)
[2020-11-22] MEDS: ONDANSETRON 4 MG/2 ML INJ IV PRN (02:12)
[2020-11-22] MEDS: LORazepam 2 MG/ML VIAL IV PRN ×4 (04:15→19:36)
[2020-11-22] MEDS: PIPERACIL/TAZOBACTA 4.5/NS 100 4.5 GM/100 ML VIAL IV SCH ×3 (05:17→22:11)
[2020-11-22 06:08] LABS: Hematocrit 27.6 % (35.5-45.6); Hemoglobin 9.3 gm/dl (11.8-15.2); Mean Corpuscular HGB Conc 34 % (32-34); Mean Corpuscular Volume 75 fl (84-94); Platelet Count 405 K/mm3 (140-440); Red Blood Count 3.67 M/mm3 (3.65-5.03); Red Cell Distribution Width 18.3 % (13.2-15.2)
[2020-11-22 06:31] LABS: Alanine Aminotransferase 14 units/L (7-56); Albumin 2.2 g/dL (3.9-5); BUN/Creatinine Ratio 41; Blood Urea Nitrogen 41 mg/dL (9-20); Calcium 9.2 mg/dL (8.4-10.2); Hemolysis Index 0
[2020-11-22] MEDS: ALBUTEROL 2.5 MG/3 ML NEBU IH SCH ×3 (07:51→21:05)
[2020-11-22 07:58] LABS: Total Cells Counted 100
[2020-11-22 07:59] LABS: Anisocytosis 1+; Dohle Bodies Few; Hypochromasia 2+; Platelet Estimate Cons
[2020-11-22] MEDS: PANTOPRAZOLE 40 MG TAB PO SCH ×2 (09:37→15:33)
[2020-11-22] MEDS: FOLIC ACID 1 MG TAB PO SCH (09:37)
[2020-11-22] MEDS: LOSARTAN 50 MG TAB PO SCH (09:37)
[2020-11-22] MEDS: ENOXAPARIN 40 MG/0.4 ML INJ SUB-Q SCH (09:38)
[2020-11-22] MEDS ORDERED: POTASSIUM PHOSPHATE 40 MMOL in SODIUM CHLORIDE 0.9% 500 ML 500 ML IV ONE (12:30)
--- NOTE | 2020-11-22 19:41 | Progress Note ---
Assessment and Plan Assessment and plan: --Alcohol withdrawal delirium Current Visit: No Status: Acute Patient has tremulousness, agitation And severe confusion due to alcohol withdrawal symptoms Continue CIWA protocol ,Thiamine folic acid Restraints as needed --Acute /chronic pancreatitis/alcohol related Current Visit: No Status: Acute Symptoms significantly improved Tolerating clear liquids advance diet to regular Antiemetics, IV Protonix GI consult if no improvement --Acute kidney injury; Current Visit: Yes Status: Acute secondary to prerenal azotemia ATN, Resolved --History of chronic ETOH abuse Current Visit: No Status: Chronic Education given to the patient advised to quit Also advised to seek alcohol rehabilitation And alcohol Anonymous support group When medically stable --Hypertension Current Visit: No Status: Chronic Patient somewhat hypotensive. Will hold blood pressure medicines hydralazine 10 mg IV every 4 hours as needed . --Ongoing tobacco use Current Visit: No Status: Chronic Smoking cessation counseling Strongly advised nicotine patch. --Sepsis/secondary to UTI/pancreatitis Current Visit: No Status: Acute Leukocytosis, tachycardia, lactic acidosis and UTI/pancreatitis Empiric antibiotics, follow cultures, supportive care, IV fluids Urine cultures positive for gram-negative rods Continue Zosyn follow culture sensitivities --UTI/E. coli Current Visit: No Status: Acute Continue Zosyn, supportive care --Severe protein calorie malnutrition Current Visit: No Status: Acute Hypoalbuminemia , albumin 2.8 Nutrition supplements, nutrition consult and supportive care -- Metabolic acidosis Current Visit: Yes Status: Acute Plan to address problem: Secondary to uremia as well as chronic pancreatitis treat underlying etiology. --DVT prophylaxis Current Visit: Yes Status: Acute Heparin subcu We will closely monitor the patient and adjust management as needed Plan of care reviewed with the patient and his nurse Patient is severely agitated confused on CIWA protocol, Patient is restraint for safety Brief history and hospital course; 60-year-old male patient was admitted with alcohol withdrawal symptoms On CIWA protocol patient continues to be agitated confused, and hallucinating Restrained for safety, sepsis secondary to UTI 11/20/2020; patient feels slightly better, no significant withdrawal symptoms Patient is on CIWA protocol, stable to be transferred out of [facility] to medical floor 11/21/2020; patient has severe agitation tremulousness, patient is on CIWA protocol Closely monitor withdrawal symptoms, adjust the medications as needed Advance diet to regular as tolerated. I called patient's mother and also patient's daughter Ms. Huong Hua at [phone] 11/22/2020; Patient continues to be agitated confused mumbling, On CIWA protocol, restraint for safety. E. coli UTI on Zosyn Called again patient's daughter next of kin Ms. Huong Hua at [phone][number obtained from patient case manager Ms. Vo] Did not lease picker the phone I left a voicemail again today to discuss about Mr. Parada's condition and treatment plan History Interval history: I have seen and examined the patient at the bedside Patient's chart and medications reviewed Patient is less agitated, confused, hallucinating On CIWA protocol Restraint for safety Vital signs noted Hospitalist Physical - Constitutional Vitals: Temp Pulse Resp BP Pulse Ox 98.9 F 125 H 20 108/73 97 11/22/20 15:17 11/22/20 15:17 11/22/20 15:17 11/22/20 15:17 11/22/20 15:17 General appearance: Present: mild distress, well-nourished, other (Agitated, confused and tremulous, on CIWA protocol) - EENT Eyes: Present: PERRL, EOM intact - Neck Neck: Present: supple, normal ROM - Respiratory Respiratory effort: normal Respiratory: bilateral: diminished, negative: rales, rhonchi, wheezing - Cardiovascular Rhythm: regular Heart Sounds: Present: S1 & S2 (Tachycardia) - Extremities Extremities: no ischemia, No edema - Abdominal General gastrointestinal: soft, non-tender, non-distended, normal bowel sounds - Integumentary Integumentary: Present: clear, warm - Psychiatric Psychiatric: agitated, other (Confused, mumbling and hallucinating) - Neurologic Neurologic: moves all extremities (Agitated) HEART Score - HEART Score Troponin: Troponin T < 0.010 ng/mL (0.00-0.029) 11/19/20 22:51 Results - Labs CBC & Chem 7: 11/22/20 05:12 11/22/20 05:12 Labs: Laboratory Last Values WBC 25.3 K/mm3 (4.5-11.0) H 11/22/20 05:12 RBC 3.67 M/mm3 (3.65-5.03) 11/22/20 05:12 Hgb 9.3 gm/dl (11.8-15.2) L 11/22/20 05:12 Hct 27.6 % (35.5-45.6) L 11/22/20 05:12 MCV 75 fl (84-94) L 11/22/20 05:12 MCH 25 pg (28-32) L 11/22/20 05:12 MCHC 34 % (32-34) 11/22/20 05:12 RDW 18.3 % (13.2-15.2) H 11/22/20 05:12 Plt Count 405 K/mm3 (140-440) 11/22/20 05:12 Lymph # (Auto) Stationary Steam Engineer 11/22/20 05:12 Add Manual Diff Complete 11/22/20 05:12 Total Counted 100 11/22/20 05:12 Seg Neutrophils % Stationary Steam Engineer 11/19/20 16:44 Seg Neuts % (Manual) 91.0 % (40.0-70.0) H 11/22/20 05:12 Band Neutrophils % 4.0 % 11/22/20 05:12 Lymphocytes % (Manual) 3.0 % (13.4-35.0) L 11/20/20 07:58 Monocytes % (Manual) 4.0 % (0.0-7.3) 11/22/20 05:12 Eosinophils % (Manual) 1.0 % (0.0-4.3) 11/22/20 05:12 Nucleated RBC % Not Reportable 11/22/20 05:12 Seg Neutrophils # Man 23.0 K/mm3 (1.8-7.7) H 11/22/20 05:12 Band Neutrophils # 1.0 K/mm3 11/22/20 05:12 Lymphocytes # (Manual) 0.0 K/mm3 (1.2-5.4) L 11/22/20 05:12 Abs React Lymphs (Man) 0.0 K/mm3 11/22/20 05:12 Monocytes # (Manual) 1.0 K/mm3 (0.0-0.8) H 11/22/20 05:12 Eosinophils # (Manual) 0.3 K/mm3 (0.0-0.4) 11/22/20 05:12 Basophils # (Manual) 0.0 K/mm3 (0.0-0.1) 11/22/20 05:12 Metamyelocytes # 0.0 K/mm3 11/22/20 05:12 Myelocytes # 0.0 K/mm3 11/22/20 05:12 Promyelocytes # 0.0 K/mm3 11/22/20 05:12 Blast Cells # 0.0 K/mm3 11/22/20 05:12 WBC Morphology Not Reportable 11/22/20 05:12 Hypersegmented Neuts Not Reportable 11/22/20 05:12 Hyposegmented Neuts Not Reportable 11/22/20 05:12 Hypogranular Neuts Not Reportable 11/22/20 05:12 Smudge Cells Not Reportable 11/22/20 05:12 Toxic Granulation Not Reportable 11/22/20 05:12 Toxic Vacuolation Not Reportable 11/22/20 05:12 Dohle Bodies Few 11/22/20 05:12 Pelger-Huet Anomaly Not Reportable 11/22/20 05:12 Aiden Rods Not Reportable 11/22/20 05:12 Platelet Estimate Cons 11/22/20 05:12 Clumped Platelets Not Reportable 11/22/20 05:12 Plt Clumps, EDTA Not Reportable 11/22/20 05:12 Large Platelets Not Reportable 11/22/20 05:12 Giant Platelets Not Reportable 11/22/20 05:12 Platelet Satelliting Not Reportable 11/22/20 05:12 Plt Morphology Comment Not Reportable 11/22/20 05:12 RBC Morphology Not Reportable 11/22/20 05:12 Dimorphic RBCs Not Reportable 11/22/20 05:12 Polychromasia Not Reportable 11/22/20 05:12 Hypochromasia 2+ 11/22/20 05:12 Poikilocytosis Not Reportable 11/22/20 05:12 Anisocytosis 1+ 11/22/20 05:12 Microcytosis Not Reportable 11/22/20 05:12 Macrocytosis Not Reportable 11/22/20 05:12 Spherocytes Not Reportable 11/22/20 05:12 Pappenheimer Bodies Not Reportable 11/22/20 05:12 Sickle Cells Not Reportable 11/22/20 05:12 Target Cells Not Reportable 11/22/20 05:12 Tear Drop Cells Not Reportable 11/22/20 05:12 Ovalocytes Not Reportable 11/22/20 05:12 Helmet Cells Not Reportable 11/22/20 05:12 [place] Bodies Not Reportable 11/22/20 05:12 [place] Rings Not Reportable 11/22/20 05:12 [place] Cells Not Reportable 11/22/20 05:12 Bite Cells Not Reportable 11/22/20 05:12 Crenated Cell Not Reportable 11/22/20 05:12 Elliptocytes Not Reportable 11/22/20 05:12 Acanthocytes (Spur) Not Reportable 11/22/20 05:12 Rouleaux Not Reportable 11/22/20 05:12 Hemoglobin C Crystals Not Reportable 11/22/20 05:12 Schistocytes Not Reportable 11/22/20 05:12 Malaria parasites Not Reportable 11/22/20 05:12 Florin Bodies Not Reportable 11/22/20 05:12 Hem Pathologist Commnt No 11/22/20 05:12 PT 16.1 Sec. (12.2-14.9) H 11/19/20 16:44 INR 1.24 (0.87-1.13) H 11/19/20 16:44 APTT 34.3 Sec. (24.2-36.6) 11/19/20 16:44 D-Dimer 1767.06 ng/mlDDU (0-234) H 11/19/20 16:44 Sodium 143 mmol/L (137-145) D 11/22/20 05:12 Potassium 3.6 mmol/L (3.6-5.0) D 11/22/20 05:12 Chloride 113.9 mmol/L (98-107) H 11/22/20 05:12 Carbon Dioxide 16 mmol/L (22-30) L 11/22/20 05:12 Anion Gap 17 mmol/L 11/22/20 05:12 BUN 41 mg/dL (9-20) H 11/22/20 05:12 Creatinine 1.0 mg/dL (0.8-1.3) 11/22/20 05:12 Estimated GFR > 60 ml/min 11/22/20 05:12 BUN/Creatinine Ratio 41 % 11/22/20 05:12 Glucose 129 mg/dL (75-100) H 11/22/20 05:12 POC Glucose 144 mg/dL (70-105) H 11/22/20 15:22 Lactic Acid 3.10 mmol/L (0.7-2.0) H* 11/19/20 18:28 Calcium 9.2 mg/dL (8.4-10.2) 11/22/20 05:12 Phosphorus 1.90 mg/dL (2.5-4.5) L 11/22/20 05:12 Magnesium 2.70 mg/dL (1.7-2.3) H 11/22/20 05:12 Total Bilirubin 0.80 mg/dL (0.1-1.2) 11/22/20 05:12 Direct Bilirubin 0.2 mg/dL (0-0.2) 11/19/20 16:44 Indirect Bilirubin 0.3 mg/dL 11/19/20 16:44 AST 24 units/L (5-40) 11/22/20 05:12 ALT 14 units/L (7-56) 11/22/20 05:12 Alkaline Phosphatase 130 units/L (35-129) H 11/22/20 05:12 Total Creatine Kinase 26 units/L (55-170) L 11/19/20 16:44 CK-MB (CK-2) < 1.0 ng/mL (0.0-4.0) 11/19/20 16:44 CK-MB (CK-2) Rel Index 3.8 (0-4) 11/19/20 16:44 Troponin T < 0.010 ng/mL (0.00-0.029) 11/19/20 22:51 NT-Pro-B Natriuret Pep 454.0 pg/mL (0-900) 11/19/20 16:44 Total Protein 5.8 g/dL (6.3-8.2) L 11/22/20 05:12 Albumin 2.2 g/dL (3.9-5) L 11/22/20 05:12 Albumin/Globulin Ratio 0.6 % 11/22/20 05:12 Lipase 67 units/L (13-60) H 11/20/20 07:58 Urine Color Yellow (Yellow) 11/19/20 19:18 Urine Turbidity Slightly-cloudy (Clear) 11/19/20 19:18 Urine pH 5.0 (5.0-7.0) 11/19/20 19:18 Ur Specific [place] 1.023 (1.003-1.030) 11/19/20 19:18 Urine Protein <15 mg/dl mg/dL (Negative) 11/19/20 19:18 Urine Glucose (UA) Neg mg/dL (Negative) 11/19/20 19:18 Urine Ketones Neg mg/dL (Negative) 11/19/20 19:18 Urine Blood Neg (Negative) 11/19/20 19:18 Urine Nitrite Neg (Negative) 11/19/20 19:18 Urine Bilirubin Neg (Negative) 11/19/20 19:18 Urine Urobilinogen < 2.0 mg/dL (<2.0) 11/19/20 19:18 Ur Leukocyte Esterase Mod (Negative) 11/19/20 19:18 Urine WBC (Auto) 33.0 /HPF (0.0-6.0) H 11/19/20 19:18 Urine RBC (Auto) 4.0 /HPF (0.0-6.0) 11/19/20 19:18 U Epithel Cells (Auto) 6.0 /HPF (0-13.0) 11/19/20 19:18 Urine Bacteria (Auto) 1+ /HPF (Negative) 11/19/20 19:18 Hyaline Casts 1 /LPF 11/19/20 19:18 Urine Mucus Few /HPF 11/19/20 19:18 Nasal Screen MRSA (PCR) Negative (Negative) 11/20/20 Unknown Urine Opiates Screen Negative 11/19/20 19:18 Urine Methadone Screen Negative 11/19/20 19:18 Ur Barbiturates Screen Negative 11/19/20 19:18 Ur Phencyclidine Scrn Negative 11/19/20 19:18 Ur Amphetamines Screen Negative 11/19/20 19:18 U Benzodiazepines Scrn Negative 11/19/20 19:18 Urine Cocaine Screen Negative 11/19/20 19:18 U Marijuana (THC) Screen Negative 11/19/20 19:18 Drugs of Abuse Note Disclamer 11/19/20 19:18 Microbiology: Microbiology 11/19/20 18:28 Peripheral/Venous Blood Culture - Preliminary NO GROWTH AFTER 72 HOURS 11/19/20 18:38 Peripheral/Venous Blood Culture - Preliminary NO GROWTH AFTER 72 HOURS 11/19/20 19:18 Urine,Clean Catch Urine Culture - Final Escherichia Coli Viramontes/IV: Voiding Method Condom Catheter Active Medications - Current Medications Current Medications: Generic Name Dose Route Start Last Admin Trade Name Freq PRN Reason Stop Dose Admin Acetaminophen 650 mg 11/20/20 14:00 11/22/20 01:00 Acetaminophen 325 Mg Tab PO 650 mg Q6H PRN Administration Pain, Mild (1-3) Albuterol 2.5 mg 11/21/20 09:51 11/22/20 14:43 Albuterol 2.5 Mg/3 Ml Nebu IH Not Given TIDRT JANNETH Enoxaparin Sodium 40 mg 11/19/20 19:00 11/22/20 09:38 Enoxaparin 40 Mg/0.4 Ml Inj SUB-Q 40 mg QDAY JANNETH Administration Folic Acid 1 mg 11/20/20 10:00 11/22/20 09:37 Folic Acid 1 Mg Tab PO 1 mg QDAY JANNETH Administration Haloperidol Lactate 5 mg 11/19/20 20:23 11/21/20 06:16 Haloperidol Lactate 5 Mg/1 Ml Inj IV 5 mg Q1HR PRN Administration Unrespon. to mult. doses BZD's Hydralazine HCl 10 mg 11/19/20 18:18 Hydralazine 20 Mg/1 Ml Inj IV Q4HR PRN Hypertension Piperacillin Sod/Tazobactam Sod 4.5 gm in 100 mls @ 200 mls/hr 11/20/20 14:00 11/22/20 15:32 Zosyn/Ns 4.5gm/100ml IV 200 mls/hr Q8HR JANNETH Administration Protocol Lorazepam 4 mg 11/21/20 16:22 Lorazepam 2 Mg/Ml Vial IV Q15MIN PRN CIWA-Ar >25 Lorazepam 4 mg 11/21/20 16:22 11/22/20 12:46 Lorazepam 2 Mg/Ml Vial IV 4 mg Q1HR PRN Administration CIWA-Ar 16-25 Lorazepam 2 mg 11/21/20 16:22 11/22/20 19:36 Lorazepam 2 Mg/Ml Vial IV 2 mg Q1HR PRN Administration CIWA-Ar 8-15 Losartan Potassium 100 mg 11/20/20 10:00 11/22/20 09:37 Losartan 50 Mg Tab PO 100 mg QDAY JANNETH Administration Morphine Sulfate 2 mg 11/20/20 10:30 11/22/20 02:12 Morphine 2 Mg/1 Ml Inj IV 2 mg Q6H PRN Administration Pain, Moderate (4-6) Naloxone HCl 0.1 mg 11/19/20 18:11 Naloxone 0.4 Mg/1 Ml Inj IV Q2MIN PRN Res Rate </= 8 or 02 SAT < 92% Ondansetron HCl 4 mg 11/19/20 18:11 11/22/20 02:12 Ondansetron 4 Mg/2 Ml Inj IV 4 mg Q8H PRN Administration Nausea And Vomiting Pantoprazole Sodium 40 mg 11/21/20 16:30 11/22/20 15:33 Pantoprazole 40 Mg Tab PO 40 mg BIDAC JANNETH Administration Sodium Chloride 10 ml 11/19/20 22:00 11/22/20 09:37 Sodium Chloride 0.9% 10 Ml Flush Syringe IV 10 ml BID JANNETH Administration Sodium Chloride 10 ml 11/19/20 19:11 11/21/20 06:21 Sodium Chloride 0.9% 10 Ml Flush Syringe IV 10 ml PRN PRN Administration LINE FLUSH Nutrition/Malnutrition Assess - Dietary Evaluation Nutrition/Malnutrition Findings: Nutrition Notes Start: 11/20/20 12:00 Freq: Status: Active Protocol: Document 11/22/20 13:08 LM (Rec: 11/22/20 13:17 LM [id number]) Nutrition Notes Initial or Follow up Reassessment Current Diagnosis Sepsis,Hypertension, Hyperlipidemia Other Pertinent Diagnosis Acute alcoholic pancreatitis, EtOH withdrawal delirium, ARF, GERD Current Diet Regular Labs/Tests Phos 1.9 Mg 2.7 Pertinent Medications Ativan Folic acid Height 5 ft 10 in Weight 84.6 kg [place] Body Weight (kg) 75.45 BMI 26.7 Weight Status Appropriate Subjective/Other Information Pt noncommunicative. Observed poor intakes in EMR. Burn Absent Trauma Absent Minimum of two criteria No #1 Nutrition Diagnosis Altered GI function As Evidenced by Signs and Symptoms Diet advanced to regular Diagnosis Progress(for reassessment Improved documentation) Is patient on ventilator? No Is Patient Ambulatory and/or Out of Bed No REE-([facility]-confined to bed) [phone] Calculation Used for Recommendations [facility] Additional Notes Pro needs 1-1.2g/k-98g/ day Fluid needs 1ml/kcal Nutrition Intervention Change Diet Order: Continue regular diet Add Supplement/Snack (indicate name/kcal Ensure Enlive BID /protein ) Provides kCal: 700 Provides Protein (gm) 40 Goal #1 Meet 75% of energy and protein needs Goal #2 ONS tolerance Anticipated Discharge Needs: CHO-controlled, low fat diet Follow-Up By: 11/25/20 Additional Comments F/U for PO intakes, ONS tolerance
[2020-11-22] MEDS: HALOPERIDOL LACTATE 5 MG/1 ML INJ IV PRN (20:00)
[2020-11-23] MEDS: LORazepam 2 MG/ML VIAL IV PRN ×2 (03:10→21:54)
[2020-11-23] MEDS: HALOPERIDOL LACTATE 5 MG/1 ML INJ IV PRN ×2 (03:11→21:56)
[2020-11-23] MEDS: ACETAMINOPHEN 325 MG TAB PO PRN (04:25)
[2020-11-23 05:41] LABS: Hematocrit 25.7 % (35.5-45.6); Hemoglobin 8.8 gm/dl (11.8-15.2); Mean Corpuscular HGB Conc 34 % (32-34); Mean Corpuscular Volume 76 fl (84-94); Platelet Count 335 K/mm3 (140-440); Red Blood Count 3.38 M/mm3 (3.65-5.03)
[2020-11-23 06:33] LABS: Band Neutrophils # (Manual) 0.1 K/mm3; Total Cells Counted 200
[2020-11-23 06:34] LABS: Anisocytosis 1+; Platelet Estimate Consistent w Auto; Target Cells 2+
[2020-11-23] MEDS: PIPERACIL/TAZOBACTA 4.5/NS 100 4.5 GM/100 ML VIAL IV SCH ×3 (08:04→21:56)
[2020-11-23] MEDS: ALBUTEROL 2.5 MG/3 ML NEBU IH SCH ×3 (09:22→20:23)
[2020-11-23] MEDS: PANTOPRAZOLE 40 MG TAB PO SCH ×2 (10:45→16:33)
[2020-11-23] MEDS: LOSARTAN 50 MG TAB PO SCH (10:45)
[2020-11-23] MEDS: FOLIC ACID 1 MG TAB PO SCH (10:45)
[2020-11-23] MEDS: ENOXAPARIN 40 MG/0.4 ML INJ SUB-Q SCH (10:46)
--- NOTE | 2020-11-23 16:03 | Progress Note ---
Assessment and Plan Assessment and Plan --Alcohol withdrawal delirium Current Visit: No Status: Acute Patient has tremulousness, agitation And severe confusion due to alcohol withdrawal symptoms Continue CIWA protocol ,Thiamine folic acid Restraints as needed --Acute /chronic pancreatitis/alcohol related Current Visit: No Status: Acute Symptoms significantly improved Tolerating clear liquids advance diet to regular Antiemetics, IV Protonix GI consult if no improvement --Acute kidney injury; Current Visit: Yes Status: Acute Improved --History of chronic ETOH abuse Current Visit: No Status: Chronic Education given to the patient advised to quit Also advised to seek alcohol rehabilitation And alcohol Anonymous support group When medically stable --Hypertension Current Visit: No Status: Chronic Patient somewhat hypotensive. Will hold blood pressure medicines hydralazine 10 mg IV every 4 hours as needed . --Ongoing tobacco use Current Visit: No Status: Chronic Smoking cessation counseling Strongly advised nicotine patch. --Sepsis/secondary to UTI/pancreatitis Current Visit: No Status: Acute Leukocytosis, tachycardia, lactic acidosis and UTI/pancreatitis Empiric antibiotics, follow cultures, supportive care, IV fluids Urine cultures positive for gram-negative rods Continue Zosyn follow culture sensitivities --UTI/E. coli Current Visit: No Status: Acute Continue Zosyn, supportive care --Severe protein calorie malnutrition Current Visit: No Status: Acute Hypoalbuminemia , albumin 2.8 Nutrition supplements, nutrition consult and supportive care -- Metabolic acidosis Current Visit: Yes Status: Acute Plan to address problem: Secondary to uremia as well as chronic pancreatitis treat underlying etiology. --DVT prophylaxis Current Visit: Yes Status: Acute Heparin subcu We will closely monitor the patient and adjust management as needed Plan of care reviewed with the patient and his nurse Patient is severely agitated confused on CIWA protocol, Patient is restraint for safety Subjective Date of service: 11/23/20 Principal diagnosis: EtOH dependence Interval history: Brief history and hospital course; 60-year-old male patient was admitted with alcohol withdrawal symptoms On CIWA protocol patient continues to be agitated confused, and hallucinating Restrained for safety, sepsis secondary to UTI 11/20/2020; patient feels slightly better, no significant withdrawal symptoms Patient is on CIWA protocol, stable to be transferred out of [facility] to medical floor 11/21/2020; patient has severe agitation tremulousness, patient is on CIWA protocol Closely monitor withdrawal symptoms, adjust the medications as needed Advance diet to regular as tolerated. I called patient's mother and also patient's daughter Ms. Huong Hua at [phone] 11/22/2020; Patient continues to be agitated confused mumbling, On CIWA protocol, restraint for safety. E. coli UTI on Zosyn Called again patient's daughter next of kin Ms. Huong Hua at [phone][number obtained from nurse case manager Ms. Vo] Did not lemon picker the phone I left a voicemail again today to discuss about Mr. Phillip wahl's condition and treatment plan 11/23/2020 Patient continues to be agitated History Interval history: I have seen and examined the patient at the bedside Patient's chart and medications reviewed Patient is less agitated, confused, hallucinating On CIWA protocol Restraint for safety Vital signs noted Objective - Constitutional Vitals: Vital Signs - 12hr 11/23/20 11/23/20 11/23/20 04:07 09:22 09:25 Temperature 100.1 F H Pulse Rate 96 H Pulse Rate [ 100 H Anterior Bilateral] Respiratory 22 Rate Respiratory 16 Rate [Anterior Bilateral] Blood Pressure 95/58 O2 Sat by Pulse 98 96 Oximetry 11/23/20 11/23/20 10:00 10:45 Temperature Pulse Rate 112 H 96 H Pulse Rate [ Anterior Bilateral] Respiratory Rate Respiratory Rate [Anterior Bilateral] Blood Pressure 95/58 O2 Sat by Pulse Oximetry General appearance: Present: no acute distress, well-nourished - EENT Eyes: PERRL, EOM intact ENT: hearing intact, clear oral mucosa Ears: bilateral: normal - Neck Neck: supple, normal ROM - Respiratory Respiratory effort: normal Respiratory: bilateral: CTA - Breasts Breasts: normal - Cardiovascular Heart rate: 78 Rhythm: regular Heart Sounds: Present: S1 & S2. Absent: gallop, rub Extremities: pulses intact, No edema, normal color, Full ROM - Gastrointestinal General gastrointestinal: Present: soft, non-tender, non-distended, normal bowel sounds - Genitourinary Male genitourinary: deferred, normal - Integumentary Integumentary: clear, warm, dry - Musculoskeletal Musculoskeletal: 1, strength equal bilaterally - Neurologic Neurologic: moves all extremities - Psychiatric Psychiatric: memory intact, appropriate mood/affect, intact judgment & insight - Labs CBC & Chem 7: 11/23/20 04:54 11/23/20 04:54 Labs: Abnormal lab results 11/22/20 11/23/20 11/23/20 Range/Units 15:22 00:11 04:54 WBC 20.3 H (4.5-11.0) K/mm3 RBC 3.38 L (3.65-5.03) M/mm3 Hgb 8.8 L (11.8-15.2) gm/dl Hct 25.7 L (35.5-45.6) % MCV 76 L (84-94) fl MCH 26 L (28-32) pg RDW 18.0 H (13.2-15.2) % Seg Neuts % (Manual) 95.5 H (40.0-70.0) % Lymphocytes % (Manual) 3.0 L (13.4-35.0) % Seg Neutrophils # Man 19.4 H (1.8-7.7) K/mm3 Lymphocytes # (Manual) 0.6 L (1.2-5.4) K/mm3 POC Glucose 144 H 131 H (70-105) mg/dL Magnesium (1.7-2.3) mg/dL 11/23/20 11/23/20 Range/Units 04:54 05:51 WBC (4.5-11.0) K/mm3 RBC (3.65-5.03) M/mm3 Hgb (11.8-15.2) gm/dl Hct (35.5-45.6) % MCV (84-94) fl MCH (28-32) pg RDW (13.2-15.2) % Seg Neuts % (Manual) (40.0-70.0) % Lymphocytes % (Manual) (13.4-35.0) % Seg Neutrophils # Man (1.8-7.7) K/mm3 Lymphocytes # (Manual) (1.2-5.4) K/mm3 POC Glucose 125 H (70-105) mg/dL Magnesium 2.70 H (1.7-2.3) mg/dL HEART Score - HEART Score Troponin: Troponin T < 0.010 ng/mL (0.00-0.029) 11/19/20 22:51
[2020-11-24] MEDS: MORPHINE 2 MG/1 ML INJ IV PRN (01:53)
[2020-11-24] MEDS: LORazepam 2 MG/ML VIAL IV PRN ×3 (01:54→14:58)
[2020-11-24 06:08] LABS: Basophils % (Auto) 0.1 % (0.0-1.8); Eosinophils # (Auto) 0.1 K/mm3 (0.0-0.4); Eosinophils % (Auto) 0.4 % (0.0-4.3); Hematocrit 26.7 % (35.5-45.6); Lymphocytes # (Auto) 1.1 K/mm3 (1.2-5.4); Lymphocytes % (Auto) 5.9 % (13.4-35.0); Mean Corpuscular HGB Conc 34 % (32-34); Mean Corpuscular Volume 77 fl (84-94); Monocytes # (Auto) 1.2 K/mm3 (0.0-0.8); Monocytes % (Auto) 6.6 % (0.0-7.3); Platelet Count 379 K/mm3 (140-440); Red Blood Count 3.48 M/mm3 (3.65-5.03); Red Cell Distribution Width 18.5 % (13.2-15.2)
[2020-11-24] MEDS: PIPERACIL/TAZOBACTA 4.5/NS 100 4.5 GM/100 ML VIAL IV SCH ×3 (06:12→21:02)
[2020-11-24 06:29] LABS: Alanine Aminotransferase 47 units/L (7-56); Albumin 2.4 g/dL (3.9-5); Blood Urea Nitrogen 26 mg/dL (9-20); Calcium 9.1 mg/dL (8.4-10.2); Hemolysis Index 40
[2020-11-24 06:36] LABS: BUN/Creatinine Ratio 43
[2020-11-24] MEDS: ALBUTEROL 2.5 MG/3 ML NEBU IH SCH ×3 (09:50→21:21)
[2020-11-24] MEDS: PANTOPRAZOLE 40 MG TAB PO SCH ×2 (10:44→16:32)
[2020-11-24] MEDS: LOSARTAN 50 MG TAB PO SCH ×2 (10:44→11:03)
[2020-11-24] MEDS: FOLIC ACID 1 MG TAB PO SCH (10:44)
[2020-11-24] MEDS: ENOXAPARIN 40 MG/0.4 ML INJ SUB-Q SCH (10:44)
--- NOTE | 2020-11-24 15:17 | Progress Note ---
Assessment and Plan Assessment and Plan --Alcohol withdrawal delirium Current Visit: No Status: Acute Patient has tremulousness, agitation And severe confusion due to alcohol withdrawal symptoms Continue CIWA protocol ,Thiamine folic acid Restraints as needed --Acute /chronic pancreatitis/alcohol related Current Visit: No Status: Acute Symptoms significantly improved Tolerating clear liquids advance diet to regular Antiemetics, IV Protonix GI consult if no improvement --Acute kidney injury; Current Visit: Yes Status: Acute Improved --History of chronic ETOH abuse Current Visit: No Status: Chronic Education given to the patient advised to quit Also advised to seek alcohol rehabilitation And alcohol Anonymous support group When medically stable --Hypertension Current Visit: No Status: Chronic Patient somewhat hypotensive. Will hold blood pressure medicines hydralazine 10 mg IV every 4 hours as needed . --Ongoing tobacco use Current Visit: No Status: Chronic Smoking cessation counseling Strongly advised nicotine patch. --Sepsis/secondary to UTI/pancreatitis Current Visit: No Status: Acute Leukocytosis, tachycardia, lactic acidosis and UTI/pancreatitis Empiric antibiotics, follow cultures, supportive care, IV fluids Urine cultures positive for gram-negative rods Continue Zosyn follow culture sensitivities --UTI/E. coli Current Visit: No Status: Acute Continue Zosyn, supportive care --Severe protein calorie malnutrition Current Visit: No Status: Acute Hypoalbuminemia , albumin 2.8 Nutrition supplements, nutrition consult and supportive care -- Metabolic acidosis Current Visit: Yes Status: Acute Plan to address problem: Secondary to uremia as well as chronic pancreatitis treat underlying etiology. --DVT prophylaxis Current Visit: Yes Status: Acute Heparin subcu We will closely monitor the patient and adjust management as needed Plan of care reviewed with the patient and his nurse Patient is severely agitated confused on CIWA protocol, Patient is restraint for safety Subjective Date of service: 11/24/20 Principal diagnosis: EtOH dependence Interval history: Brief history and hospital course; 60-year-old male patient was admitted with alcohol withdrawal symptoms On CIWA protocol patient continues to be agitated confused, and hallucinating Restrained for safety, sepsis secondary to UTI 11/20/2020; patient feels slightly better, no significant withdrawal symptoms Patient is on CIWA protocol, stable to be transferred out of [facility] to medical floor 11/21/2020; patient has severe agitation tremulousness, patient is on CIWA protocol Closely monitor withdrawal symptoms, adjust the medications as needed Advance diet to regular as tolerated. I called patient's mother and also patient's daughter Ms. Huong Hua at [phone] 11/22/2020; Patient continues to be agitated confused mumbling, On CIWA protocol, restraint for safety. E. coli UTI on Zosyn Called again patient's daughter next of kin Ms. Huong Hua at [phone][number obtained from senior case manager Ms. Vo] Did not picking machine operator helper the phone I left a voicemail again today to discuss about Mr. Phillip wahl's condition and treatment plan 11/23/2020 Patient continues to be agitated 11/24/2020 Patient continues to be agitated History Interval history: I have seen and examined the patient at the bedside Patient's chart and medications reviewed Patient is less agitated, confused, hallucinating On CIWA protocol Restraint for safety Vital signs noted Objective - Constitutional Vitals: Vital Signs - 12hr 11/24/20 11/24/20 11/24/20 04:23 07:55 08:56 Temperature 98.4 F 98.0 F Pulse Rate 80 109 H 92 H Respiratory 18 18 Rate Blood Pressure 116/78 99/61 [Left] O2 Sat by Pulse 94 98 96 Oximetry 11/24/20 10:00 Temperature Pulse Rate 114 H Respiratory Rate Blood Pressure [Left] O2 Sat by Pulse Oximetry General appearance: Present: no acute distress, well-nourished - EENT Eyes: PERRL, EOM intact ENT: hearing intact, clear oral mucosa Ears: bilateral: normal - Neck Neck: supple, normal ROM - Respiratory Respiratory effort: normal Respiratory: bilateral: CTA - Breasts Breasts: normal - Cardiovascular Heart rate: 78 Rhythm: regular Heart Sounds: Present: S1 & S2. Absent: gallop, rub Extremities: pulses intact, No edema, normal color, Full ROM - Gastrointestinal General gastrointestinal: Present: soft, non-tender, non-distended, normal bowel sounds - Genitourinary Male genitourinary: normal - Integumentary Integumentary: clear, warm, dry - Musculoskeletal Musculoskeletal: 1, strength equal bilaterally - Neurologic Neurologic: moves all extremities - Psychiatric Psychiatric: memory intact, appropriate mood/affect, intact judgment & insight - Labs CBC & Chem 7: 11/25/20 04:14 11/26/20 14:00 Labs: Abnormal lab results 11/24/20 11/24/2011/24/21 Range/Units 01:41 05:06 05:06 WBC 18.6 H (4.5-11.0) K/mm3 RBC 3.48 L (3.65-5.03) M/mm3 Hgb 9.0 L (11.8-15.2) gm/dl Hct 26.7 L (35.5-45.6) % MCV 77 L (84-94) fl MCH 26 L (28-32) pg RDW 18.5 H (13.2-15.2) % Lymph % (Auto) 5.9 L (13.4-35.0) % Lymph # (Auto) 1.1 L (1.2-5.4) K/mm3 Bibb # (Auto) 1.2 H (0.0-0.8) K/mm3 Seg Neutrophils % 87.0 H (40.0-70.0) % Seg Neutrophils # 16.2 H (1.8-7.7) K/mm3 Sodium 160 H D (137-145) mmol/L Chloride 129.5 H (98-107) mmol/L Carbon Dioxide 19 L (22-30) mmol/L BUN 26 H (9-20) mg/dL Creatinine 0.6 L (0.8-1.3) mg/dL Glucose 129 H (75-100) mg/dL POC Glucose 122 H (70-105) mg/dL Magnesium 2.60 H (1.7-2.3) mg/dL Total Bilirubin 1.60 H (0.1-1.2) mg/dL AST 52 H (5-40) units/L Alkaline Phosphatase 242 H (35-129) units/L Albumin 2.4 L (3.9-5) g/dL 11/24/20 11/24/20 Range/Units 06:33 12:02 WBC (4.5-11.0) K/mm3 RBC (3.65-5.03) M/mm3 Hgb (11.8-15.2) gm/dl Hct (35.5-45.6) % MCV (84-94) fl MCH (28-32) pg RDW (13.2-15.2) % Lymph % (Auto) (13.4-35.0) % Lymph # (Auto) (1.2-5.4) K/mm3 Bibb # (Auto) (0.0-0.8) K/mm3 Seg Neutrophils % (40.0-70.0) % Seg Neutrophils # (1.8-7.7) K/mm3 Sodium (137-145) mmol/L Chloride (98-107) mmol/L Carbon Dioxide (22-30) mmol/L BUN (9-20) mg/dL Creatinine (0.8-1.3) mg/dL Glucose (75-100) mg/dL POC Glucose 134 H 145 H (70-105) mg/dL Magnesium (1.7-2.3) mg/dL Total Bilirubin (0.1-1.2) mg/dL AST (5-40) units/L Alkaline Phosphatase (35-129) units/L Albumin (3.9-5) g/dL HEART Score - HEART Score Troponin: Troponin T < 0.010 ng/mL (0.00-0.029) 11/19/20 22:51
[2020-11-24] MEDS ORDERED: DEXTROSE 5% IN WATER 1,000 ML IV SCH (16:00)
[2020-11-25] MEDS: PIPERACIL/TAZOBACTA 4.5/NS 100 4.5 GM/100 ML VIAL IV SCH (05:17)
[2020-11-25 05:24] LABS: Basophils % (Auto) 0.1 % (0.0-1.8); Eosinophils # (Auto) 0.1 K/mm3 (0.0-0.4); Eosinophils % (Auto) 0.8 % (0.0-4.3); Hematocrit 28.1 % (35.5-45.6); Hemoglobin 9.3 gm/dl (11.8-15.2); Lymphocytes # (Auto) 1.5 K/mm3 (1.2-5.4); Lymphocytes % (Auto) 10.1 % (13.4-35.0); Mean Corpuscular HGB Conc 33 % (32-34); Mean Corpuscular Volume 78 fl (84-94); Monocytes % (Auto) 6.5 % (0.0-7.3); Platelet Count 375 K/mm3 (140-440); Red Blood Count 3.61 M/mm3 (3.65-5.03); Red Cell Distribution Width 18.1 % (13.2-15.2)
[2020-11-25 05:40] LABS: Alanine Aminotransferase 32 units/L (7-56); Albumin 2.5 g/dL (3.9-5); BUN/Creatinine Ratio 33; Blood Urea Nitrogen 30 mg/dL (9-20); Hemolysis Index 0
[2020-11-25] MEDS: FOLIC ACID 1 MG TAB PO SCH ×2 (09:13→11:23)
[2020-11-25] MEDS: ENOXAPARIN 40 MG/0.4 ML INJ SUB-Q SCH (09:13)
[2020-11-25] MEDS: PANTOPRAZOLE 40 MG TAB PO SCH ×3 (09:13→18:17)
[2020-11-25] MEDS: D5W/0.45% NACL 1,000 ML IV SCH ×3 (09:14→23:40)
[2020-11-25] MEDS: ALBUTEROL 2.5 MG/3 ML NEBU IH SCH ×3 (09:24→21:32)
[2020-11-25] MEDS: LOSARTAN 50 MG TAB PO SCH (11:23)
[2020-11-25] MEDS: LORazepam 2 MG/ML VIAL IV PRN ×2 (11:24→21:30)
[2020-11-25] MEDS ORDERED: METOPROLOL TARTRATE 5 MG/5 ML INJ IV NR (11:48)
[2020-11-25] MEDS ORDERED: SODIUM BICARBONATE 650 MG TAB PO SCH (14:00)
--- NOTE | 2020-11-25 17:21 | Consultation ---
History of Present Illness - Reason for Consult Consult date: 11/25/20 acute renal failure - History of Present Illness This is a 60-year-old man with hypertension, hyperlipidemia, chronic alcohol abuse, recurrent pancreatitis who presented with an acute episode of abdominal pain radiating to the back. He described the pain as colicky, located in the left upper and lower quadrant and radiating to the back. It was associated with nausea but no vomiting. His hospital stay was complicated by hypernatremia and nephrology was consulted for further management. Patient denies personal or family history of kidney disease. He denies polyuria but does note poor oral intake. Denies vomiting. Past History Past Medical History: GERD, hypertension, hyperlipidemia, liver disease. denies: atrial fib, arrhythmia, anemia, CAD, cancer, COPD, diabetes, dialysis, DVT, ESRD, heart failure, hepatitis, HIV/AIDS, hyperthyroidism, hypothyroidism, migraines, PVD, pulmonary embolism, renal failure, seizures, stroke, sarcoidosis Past Surgical History: No surgical history, Other (Scrotal lesion) Social history: lives with family, smoking, alcohol abuse Family history: no significant family history Medications and Allergies Allergies Allergy/AdvReac Type Severity Reaction Status Date / Time No Known Allergies Allergy Verified 10/25/19 12:42 Home Medications Medication Instructions Recorded Confirmed Last Taken Type Folic Acid [Folvite] 1 mg PO QDAY #30 tablet 10/27/19 11/20/20 11/18/20 Rx Colchicine 0.6 mg PO TID 11/20/20 11/20/20 Unknown History Cyanocobalamin (Vitamin B-12) 100 mcg PO QDAY 11/20/20 11/20/20 11/18/20 History Hydrochlorothiazide 12.5 mg PO QDAY 11/20/20 11/20/20 11/18/20 History Lipase/Protease/Amylase [Creon Dr 1 cap PO TID 11/20/20 11/20/20 11/18/20 History 6,000 Units] Losartan Potassium 100 mg PO QDAY 11/20/20 11/20/20 11/18/20 History Meloxicam 15 mg PO DAILY 11/20/20 11/20/20 11/18/20 History Pantoprazole [Protonix TAB] 40 mg PO DAILY 11/20/20 11/20/20 11/18/20 History Potassium Gluconate [Potassium] 595 mg PO QDAY 11/20/20 11/20/20 11/18/20 History allopurinoL [Zyloprim] 300 mg PO DAILY 11/20/20 11/20/20 11/18/20 History amLODIPine 10 mg PO DAILY 11/20/20 11/20/20 11/18/20 11:00 History Active Meds: Active Medications Acetaminophen (Acetaminophen 325 Mg Tab) 650 mg PO Q6H PRN PRN Reason: Pain, Mild (1-3) Last Admin: 11/23/20 04:25 Dose: 650 mg Documented by: Albuterol (Albuterol 2.5 Mg/3 Ml Nebu) 2.5 mg IH TIDRT [facility] Last Admin: 11/25/20 14:21 Dose: 2.5 mg Documented by: Enoxaparin Sodium (Enoxaparin 40 Mg/0.4 Ml Inj) 40 mg SUB-Q QDAY [facility] Last Admin: 11/25/20 09:13 Dose: 40 mg Documented by: Folic Acid (Folic Acid 1 Mg Tab) 1 mg PO QDAY [facility] Last Admin: 11/25/20 11:23 Dose: Not Given Documented by: Haloperidol Lactate (Haloperidol Lactate 5 Mg/1 Ml Inj) 5 mg IV Q1HR PRN PRN Reason: Unrespon. to mult. doses BZD's Last Admin: 11/23/20 21:56 Dose: 5 mg Documented by: Hydralazine HCl (Hydralazine 20 Mg/1 Ml Inj) 10 mg IV Q4HR PRN PRN Reason: Hypertension Dextrose/Sodium Chloride (D5/0.45ns) 1,000 mls @ 150 mls/hr IV DIRECT [facility] Last Admin: 11/25/20 09:14 Dose: 150 mls/hr Documented by: Lorazepam (Lorazepam 2 Mg/Ml Vial) 4 mg IV Q15MIN PRN PRN Reason: CIWA-Ar >25 Lorazepam (Lorazepam 2 Mg/Ml Vial) 4 mg IV Q1HR PRN PRN Reason: CIWA-Ar 16-25 Last Admin: 11/24/20 14:58 Dose: 4 mg Documented by: Lorazepam (Lorazepam 2 Mg/Ml Vial) 2 mg IV Q1HR PRN PRN Reason: CIWA-Ar 8-15 Last Admin: 11/25/20 11:24 Dose: 2 mg Documented by: Losartan Potassium (Losartan 50 Mg Tab) 100 mg PO QDAY [facility] Last Admin: 11/25/20 11:23 Dose: Not Given Documented by: Morphine Sulfate (Morphine 2 Mg/1 Ml Inj) 2 mg IV Q6H PRN PRN Reason: Pain, Moderate (4-6) Last Admin: 11/24/20 01:53 Dose: 2 mg Documented by: Naloxone HCl (Naloxone 0.4 Mg/1 Ml Inj) 0.1 mg IV Q2MIN PRN PRN Reason: Res Rate </= 8 or 02 SAT < 92% Ondansetron HCl (Ondansetron 4 Mg/2 Ml Inj) 4 mg IV Q8H PRN PRN Reason: Nausea And Vomiting Last Admin: 11/22/20 02:12 Dose: 4 mg Documented by: Pantoprazole Sodium (Pantoprazole 40 Mg Tab) 40 mg PO BIDAC [facility] Last Admin: 11/25/20 11:23 Dose: Not Given Documented by: Sodium Bicarbonate (Sodium Bicarbonate 650 Mg Tab) 1,300 mg PO TID [facility] Last Admin: 11/25/20 15:33 Dose: Not Given Documented by: Sodium Chloride (Sodium Chloride 0.9% 10 Ml Flush Syringe) 10 ml IV BID [facility] Last Admin: 11/25/20 11:52 Dose: 10 ml Documented by: Sodium Chloride (Sodium Chloride 0.9% 10 Ml Flush Syringe) 10 ml IV PRN PRN PRN Reason: LINE FLUSH Last Admin: 11/24/20 01:59 Dose: 10 ml Documented by: Review of Systems Constitutional: no weight loss, no fever, no chills Ears, nose, mouth and throat: no nasal congestion, no nasal discharge Cardiovascular: no chest pain, no orthopnea Respiratory: no cough, no shortness of breath Gastrointestinal: abdominal pain, nausea Genitourinary Male: no dysuria, no hematuria Rectal: no bleeding Musculoskeletal: no muscle weakness, no muscle cramps Integumentary: no rash, no pruritis Neurological: no weakness, no numbness Psychiatric: no anxiety, no paranoia Endocrine: no polydipsia, no polyuria Hematologic/Lymphatic: no easy bruising, no easy bleeding Allergic/Immunologic: no wheezing Exam - Vital Signs Vital signs: Vital Signs Temp Pulse Resp BP Pulse Ox 97.6 F 104 H 22 144/82 99 11/19/20 16:20 11/19/20 16:20 11/19/20 16:20 11/19/20 16:20 11/19/20 16:20 - Physical Exam Narrative exam: General: Mild distress HEENT: Oral mucosa moist Neck: Supple, no JVD Chest: Clear to auscultation bilaterally Heart: RRR, S1 and S2, no pericardial rub Abdomen: Distended, tender to palpation Extremity: No peripheral cyanosis, edema Neurological: Alert, awake, no asterixis Dermatology: No skin rash Psych: No agitation Musculoskeletal: No joint effusion Results - Lab Results 11/25/20 04:14 11/25/20 04:14 Most recent lab results Calcium 9.0 mg/dL (8.4-10.2) 11/25/20 04:14 Phosphorus 3.00 mg/dL (2.5-4.5) D 11/23/20 04:54 Magnesium 2.60 mg/dL (1.7-2.3) H 11/24/20 05:06 Assessment and Plan Assessment Hypernatremia Hypokalemia Acidosis Azotemia Leukocytosis Pancreatitis Gram negative bacteremia Recommendations Start D5 half-normal IV fluids Oral hydration Replete potassium when necessary Hold antihypertensives Keep MAP>65 Avoid nephrotoxins
[2020-11-25] MEDS: ACETAMINOPHEN 325 MG TAB PO PRN (23:32)
[2020-11-25] MEDS: MORPHINE 2 MG/1 ML INJ IV PRN (23:40)
[2020-11-26] MEDS: ALBUTEROL 2.5 MG/3 ML NEBU IH SCH ×3 (07:50→21:51)
[2020-11-26] MEDS: D5W/0.45% NACL 1,000 ML IV SCH (08:37)
[2020-11-26] MEDS: ENOXAPARIN 40 MG/0.4 ML INJ SUB-Q SCH (08:38)
[2020-11-26] MEDS: LORazepam 2 MG/ML VIAL IV PRN (09:04)
[2020-11-26] MEDS: LOSARTAN 50 MG TAB PO SCH (09:05)
[2020-11-26] MEDS: FOLIC ACID 1 MG TAB PO SCH (09:05)
[2020-11-26] MEDS: PANTOPRAZOLE 40 MG TAB PO SCH ×2 (09:05→18:37)
--- NOTE | 2020-11-26 12:18 | Progress Note ---
Assessment and Plan Assessment and plan: --Alcohol withdrawal delirium Current Visit: No Status: Acute Symptoms slightly improved Patient is more alert and awake Requiring restraints for safety On CIWA protocol If he is more alert and awake May get PT and OT to evaluate him Assess the DC needs Possible discharge in 1 to 2 days if stable --Acute /chronic pancreatitis/alcohol related Current Visit: No Status: Acute Symptoms significantly improved Currently on regular diet Antiemetics, IV Protonix --Acute kidney injury; Current Visit: Yes Status: Acute Vasomotor nephropathy, resolved --History of chronic ETOH abuse Current Visit: No Status: Chronic Education given to the patient advised to quit Also advised to seek alcohol rehabilitation And alcohol Anonymous support group When medically stable --Hypertension Current Visit: No Status: Chronic Moderate control continue current antihypertensives to 2 or 3 depending on --Ongoing tobacco use Current Visit: No Status: Chronic Smoking cessation counseling Strongly advised nicotine patch. --Sepsis/secondary to UTI/pancreatitis Current Visit: No Status: Acute Leukocytosis, tachycardia, lactic acidosis and UTI/pancreatitis Empiric antibiotics, follow cultures, supportive care, IV fluids Urine cultures positive for gram-negative rods Continue Zosyn follow culture sensitivities --UTI/E. coli Current Visit: No Status: Acute Continue Zosyn, supportive care --Severe protein calorie malnutrition Current Visit: No Status: Acute Hypoalbuminemia , albumin 2.8 Nutrition supplements, nutrition consult and supportive care -- Metabolic acidosis Current Visit: Yes Status: Acute Plan to address problem: Secondary to uremia as well as chronic pancreatitis treat underlying etiology. --DVT prophylaxis Current Visit: Yes Status: Acute Heparin subcu We will closely monitor the patient and adjust management as needed Plan of care reviewed with the patient and his nurse Patient is severely agitated confused on CIWA protocol, Patient is restraint for safety Subjective Date of service: 11/24/20 Principal diagnosis: EtOH dependence Interval history: Brief history and hospital course; 60-year-old male patient was admitted with alcohol withdrawal symptoms On CIWA protocol patient continues to be agitated confused, and hallucinating Restrained for safety, sepsis secondary to UTI 11/20/2020; patient feels slightly better, no significant withdrawal symptoms Patient is on CIWA protocol, stable to be transferred out of [facility] to medical floor 11/21/2020; patient has severe agitation tremulousness, patient is on CIWA protocol Closely monitor withdrawal symptoms, adjust the medications as needed Advance diet to regular as tolerated. I called patient's mother and also patient's daughter Ms. Huong Hua at [phone] 11/22/2020; Patient continues to be agitated confused mumbling, On CIWA protocol, restraint for safety. E. coli UTI on Zosyn Called again patient's daughter next of kin Ms. Huong Hua at [phone][number obtained from lead case manager Ms. 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 Parada's condition and treatment plan 11/23/2020 Patient continues to be agitated Resumed service 11/26/2020; Patient still has mild alcohol withdrawal symptoms On CIWA protocol More alert and awake responding appropriately Restraint for safety History Interval history: I have seen and examined the patient at the bedside this morning Patient feels slightly better than a couple of days ago Patient still has mild confusion, soft wrist restraints Tolerating diet Vital signs noted Hospitalist Physical - Constitutional Vitals: Temp Pulse Resp BP Pulse Ox 98.7 F 104 H 16 106/66 96 11/26/20 06:38 11/26/20 09:05 11/26/20 07:50 11/26/20 09:05 11/26/20 09:32 General appearance: Present: no acute distress, well-nourished - EENT Eyes: Present: PERRL, EOM intact - Neck Neck: Present: supple, normal ROM - Respiratory Respiratory effort: normal Respiratory: bilateral: diminished, negative: rales, rhonchi, wheezing - Cardiovascular Rhythm: regular Heart Sounds: Present: S1 & S2 - Extremities Extremities: no ischemia, No edema - Abdominal General gastrointestinal: soft, non-tender, non-distended, normal bowel sounds - Integumentary Integumentary: Present: clear, warm - Psychiatric Psychiatric: cooperative, agitated (Slightly agitated at times) - Neurologic Neurologic: CNII-XII intact, moves all extremities HEART Score - HEART Score Troponin: Troponin T < 0.010 ng/mL (0.00-0.029) 11/19/20 22:51 Results - Labs CBC & Chem 7: 11/25/20 04:14 11/28/20 10:44 Labs: Laboratory Last Values WBC 14.9 K/mm3 (4.5-11.0) H 11/25/20 04:14 RBC 3.61 M/mm3 (3.65-5.03) L 11/25/20 04:14 Hgb 9.3 gm/dl (11.8-15.2) L 11/25/20 04:14 Hct 28.1 % (35.5-45.6) L 11/25/20 04:14 MCV 78 fl (84-94) L 11/25/20 04:14 MCH 26 pg (28-32) L 11/25/20 04:14 MCHC 33 % (32-34) 11/25/20 04:14 RDW 18.1 % (13.2-15.2) H 11/25/20 04:14 Plt Count 375 K/mm3 (140-440) 11/25/20 04:14 Lymph % (Auto) 10.1 % (13.4-35.0) L 11/25/20 04:14 [place] % (Auto) 6.5 % (0.0-7.3) 11/25/20 04:14 Eos % (Auto) 0.8 % (0.0-4.3) 11/25/20 04:14 Baso % (Auto) 0.1 % (0.0-1.8) 11/25/20 04:14 Lymph # (Auto) 1.5 K/mm3 (1.2-5.4) 11/25/20 04:14 [place] # (Auto) 1.0 K/mm3 (0.0-0.8) H 11/25/20 04:14 Eos # (Auto) 0.1 K/mm3 (0.0-0.4) 11/25/20 04:14 Baso # (Auto) 0.0 K/mm3 (0.0-0.1) 11/25/20 04:14 Add Manual Diff Complete 11/23/20 04:54 Total Counted 200 11/23/20 04:54 Seg Neutrophils % 82.5 % (40.0-70.0) H 11/25/20 04:14 Seg Neuts % (Manual) 95.5 % (40.0-70.0) H 11/23/20 04:54 Band Neutrophils % 0.5 % 11/23/20 04:54 Lymphocytes % (Manual) 3.0 % (13.4-35.0) L 11/23/20 04:54 Monocytes % (Manual) 1.0 % (0.0-7.3) 11/23/20 04:54 Eosinophils % (Manual) 1.0 % (0.0-4.3) 11/22/20 05:12 Nucleated RBC % Not Reportable 11/23/20 04:54 Seg Neutrophils # 12.3 K/mm3 (1.8-7.7) H 11/25/20 04:14 Seg Neutrophils # Man 19.4 K/mm3 (1.8-7.7) H 11/23/20 04:54 Band Neutrophils # 0.1 K/mm3 11/23/20 04:54 Lymphocytes # (Manual) 0.6 K/mm3 (1.2-5.4) L 11/23/20 04:54 Abs React Lymphs (Man) 0.0 K/mm3 11/23/20 04:54 Monocytes # (Manual) 0.2 K/mm3 (0.0-0.8) 11/23/20 04:54 Eosinophils # (Manual) 0.0 K/mm3 (0.0-0.4) 11/23/20 04:54 Basophils # (Manual) 0.0 K/mm3 (0.0-0.1) 11/23/20 04:54 Metamyelocytes # 0.0 K/mm3 11/23/20 04:54 Myelocytes # 0.0 K/mm3 11/23/20 04:54 Promyelocytes # 0.0 K/mm3 11/23/20 04:54 Blast Cells # 0.0 K/mm3 11/23/20 04:54 WBC Morphology Not Reportable 11/23/20 04:54 Hypersegmented Neuts Not Reportable 11/23/20 04:54 Hyposegmented Neuts Not Reportable 11/23/20 04:54 Hypogranular Neuts Not Reportable 11/23/20 04:54 Smudge Cells Not Reportable 11/23/20 04:54 Toxic Granulation Not Reportable 11/23/20 04:54 Toxic Vacuolation Not Reportable 11/23/20 04:54 Dohle Bodies Not Reportable 11/23/20 04:54 Pelger-Huet Anomaly Not Reportable 11/23/20 04:54 Aiden Rods Not Reportable 11/23/20 04:54 Platelet Estimate Consistent w auto 11/23/20 04:54 Clumped Platelets Not Reportable 11/23/20 04:54 Plt Clumps, EDTA Not Reportable 11/23/20 04:54 Large Platelets Not Reportable 11/23/20 04:54 Giant Platelets Not Reportable 11/23/20 04:54 Platelet Satelliting Not Reportable 11/23/20 04:54 Plt Morphology Comment Not Reportable 11/23/20 04:54 RBC Morphology Not Reportable 11/23/20 04:54 Dimorphic RBCs Not Reportable 11/23/20 04:54 Polychromasia Not Reportable 11/23/20 04:54 Hypochromasia Not Reportable 11/23/20 04:54 Poikilocytosis Not Reportable 11/23/20 04:54 Anisocytosis 1+ 11/23/20 04:54 Microcytosis Not Reportable 11/23/20 04:54 Macrocytosis Not Reportable 11/23/20 04:54 Spherocytes Not Reportable 11/23/20 04:54 Pappenheimer Bodies Not Reportable 11/23/20 04:54 Sickle Cells Not Reportable 11/23/20 04:54 Target Cells 2+ 11/23/20 04:54 Tear Drop Cells Not Reportable 11/23/20 04:54 Ovalocytes Not Reportable 11/23/20 04:54 Helmet Cells Not Reportable 11/23/20 04:54 [place] Bodies Not Reportable 11/23/20 04:54 [place] Rings Not Reportable 11/23/20 04:54 [place] Cells Not Reportable 11/23/20 04:54 Bite Cells Not Reportable 11/23/20 04:54 Crenated Cell Not Reportable 11/23/20 04:54 Elliptocytes Not Reportable 11/23/20 04:54 Acanthocytes (Spur) Not Reportable 11/23/20 04:54 Rouleaux Not Reportable 11/23/20 04:54 Hemoglobin C Crystals Not Reportable 11/23/20 04:54 Schistocytes Not Reportable 11/23/20 04:54 Malaria parasites Not Reportable 11/23/20 04:54 [place] Bodies Not Reportable 11/23/20 04:54 Hem Pathologist Commnt No 11/23/20 04:54 PT 16.1 Sec. (12.2-14.9) H 11/19/20 16:44 INR 1.24 (0.87-1.13) H 11/19/20 16:44 APTT 34.3 Sec. (24.2-36.6) 11/19/20 16:44 D-Dimer 1767.06 ng/mlDDU (0-234) H 11/19/20 16:44 Sodium 162 mmol/L (137-145) H* 11/25/20 04:14 Potassium 3.5 mmol/L (3.6-5.0) L 11/25/20 04:14 Chloride 130.9 mmol/L (98-107) H 11/25/20 04:14 Carbon Dioxide 18 mmol/L (22-30) L 11/25/20 04:14 Anion Gap 17 mmol/L 11/25/20 04:14 BUN 30 mg/dL (9-20) H 11/25/20 04:14 Creatinine 0.9 mg/dL (0.8-1.3) 11/25/20 04:14 Estimated GFR > 60 ml/min 11/25/20 04:14 BUN/Creatinine Ratio 33 % 11/25/20 04:14 Glucose 123 mg/dL (75-100) H 11/25/20 04:14 POC Glucose 129 mg/dL (70-105) H 11/26/20 11:42 Lactic Acid 3.10 mmol/L (0.7-2.0) H* 11/19/20 18:28 Calcium 9.0 mg/dL (8.4-10.2) 11/25/20 04:14 Phosphorus 3.00 mg/dL (2.5-4.5) D 11/23/20 04:54 Magnesium 2.60 mg/dL (1.7-2.3) H 11/24/20 05:06 Total Bilirubin 1.70 mg/dL (0.1-1.2) H 11/25/20 04:14 Direct Bilirubin 0.2 mg/dL (0-0.2) 11/19/20 16:44 Indirect Bilirubin 0.3 mg/dL 11/19/20 16:44 AST 25 units/L (5-40) 11/25/20 04:14 ALT 32 units/L (7-56) 11/25/20 04:14 Alkaline Phosphatase 210 units/L (35-129) H 11/25/20 04:14 Total Creatine Kinase 26 units/L (55-170) L 11/19/20 16:44 CK-MB (CK-2) < 1.0 ng/mL (0.0-4.0) 11/19/20 16:44 CK-MB (CK-2) Rel Index 3.8 (0-4) 11/19/20 16:44 Troponin T < 0.010 ng/mL (0.00-0.029) 11/19/20 22:51 NT-Pro-B Natriuret Pep 454.0 pg/mL (0-900) 11/19/20 16:44 Total Protein 6.5 g/dL (6.3-8.2) 11/25/20 04:14 Albumin 2.5 g/dL (3.9-5) L 11/25/20 04:14 Albumin/Globulin Ratio 0.6 % 11/25/20 04:14 Lipase 67 units/L (13-60) H 11/20/20 07:58 Urine Color Yellow (Yellow) 11/19/20 19:18 Urine Turbidity Slightly-cloudy (Clear) 11/19/20 19:18 Urine pH 5.0 (5.0-7.0) 11/19/20 19:18 Ur Specific [place] 1.023 (1.003-1.030) 11/19/20 19:18 Urine Protein <15 mg/dl mg/dL (Negative) 11/19/20 19:18 Urine Glucose (UA) Neg mg/dL (Negative) 11/19/20 19:18 Urine Ketones Neg mg/dL (Negative) 11/19/20 19:18 Urine Blood Neg (Negative) 11/19/20 19:18 Urine Nitrite Neg (Negative) 11/19/20 19:18 Urine Bilirubin Neg (Negative) 11/19/20 19:18 Urine Urobilinogen < 2.0 mg/dL (<2.0) 11/19/20 19:18 Ur Leukocyte Esterase Mod (Negative) 11/19/20 19:18 Urine WBC (Auto) 33.0 /HPF (0.0-6.0) H 11/19/20 19:18 Urine RBC (Auto) 4.0 /HPF (0.0-6.0) 11/19/20 19:18 U Epithel Cells (Auto) 6.0 /HPF (0-13.0) 11/19/20 19:18 Urine Bacteria (Auto) 1+ /HPF (Negative) 11/19/20 19:18 Hyaline Casts 1 /LPF 11/19/20 19:18 Urine Mucus Few /HPF 11/19/20 19:18 Nasal Screen MRSA (PCR) Negative (Negative) 11/20/20 Unknown Urine Opiates Screen Negative 11/19/20 19:18 Urine Methadone Screen Negative 11/19/20 19:18 Ur Barbiturates Screen Negative 11/19/20 19:18 Ur Phencyclidine Scrn Negative 11/19/20 19:18 Ur Amphetamines Screen Negative 11/19/20 19:18 U Benzodiazepines Scrn Negative 11/19/20 19:18 Urine Cocaine Screen Negative 11/19/20 19:18 U Marijuana (THC) Screen Negative 11/19/20 19:18 Drugs of Abuse Note Disclamer 11/19/20 19:18 [place]ontes/IV: Voiding Method Condom Catheter Active Medications - Current Medications Current Medications: Generic Name Dose Route Start Last Admin Trade Name Freq PRN Reason Stop Dose Admin Acetaminophen 650 mg 11/20/20 14:00 11/25/20 23:32 Acetaminophen 325 Mg Tab PO 650 mg Q6H PRN Administration Pain, Mild (1-3) Albuterol 2.5 mg 11/21/20 09:51 11/26/20 07:50 Albuterol 2.5 Mg/3 Ml Nebu IH 2.5 mg TIDRT JANNETH Administration Enoxaparin Sodium 40 mg 11/19/20 19:00 11/25/20 09:13 Enoxaparin 40 Mg/0.4 Ml Inj SUB-Q 40 mg QDAY JANNETH Administration Folic Acid 1 mg 11/20/20 10:00 11/26/20 09:05 Folic Acid 1 Mg Tab PO 1 mg QDAY JANNETH Administration Haloperidol Lactate 5 mg 11/19/20 20:23 11/23/20 21:56 Haloperidol Lactate 5 Mg/1 Ml Inj IV 5 mg Q1HR PRN Administration Unrespon. to mult. doses BZD's Hydralazine HCl 10 mg 11/19/20 18:18 Hydralazine 20 Mg/1 Ml Inj IV Q4HR PRN Hypertension Dextrose/Sodium Chloride 1,000 mls @ 150 mls/hr 11/25/20 09:00 11/25/20 23:40 D5/0.45ns IV 150 mls/hr DIRECT JANNETH Administration Lorazepam 4 mg 11/21/20 16:22 Lorazepam 2 Mg/Ml Vial IV Q15MIN PRN CIWA-Ar >25 Lorazepam 4 mg 11/21/20 16:22 11/24/20 14:58 Lorazepam 2 Mg/Ml Vial IV 4 mg Q1HR PRN Administration CIWA-Ar 16-25 Lorazepam 2 mg 11/21/20 16:22 11/26/20 09:04 Lorazepam 2 Mg/Ml Vial IV 2 mg Q1HR PRN Administration CIWA-Ar 8-15 Losartan Potassium 100 mg 11/20/20 10:00 11/26/20 09:05 Losartan 50 Mg Tab PO Not Given QDAY JANNETH Morphine Sulfate 2 mg 11/20/20 10:30 11/25/20 23:40 Morphine 2 Mg/1 Ml Inj IV 2 mg Q6H PRN Administration Pain, Moderate (4-6) Naloxone HCl 0.1 mg 11/19/20 18:11 Naloxone 0.4 Mg/1 Ml Inj IV Q2MIN PRN Res Rate </= 8 or 02 SAT < 92% Ondansetron HCl 4 mg 11/19/20 18:11 11/22/20 02:12 Ondansetron 4 Mg/2 Ml Inj IV 4 mg Q8H PRN Administration Nausea And Vomiting Pantoprazole Sodium 40 mg 11/21/20 16:30 11/26/20 09:05 Pantoprazole 40 Mg Tab PO 40 mg BIDAC JANNETH Administration Sodium Chloride 10 ml 11/19/20 22:00 11/25/20 21:30 Sodium Chloride 0.9% 10 Ml Flush Syringe IV 10 ml BID JANNETH Administration Sodium Chloride 10 ml 11/19/20 19:11 11/24/20 01:59 Sodium Chloride 0.9% 10 Ml Flush Syringe IV 10 ml PRN PRN Administration LINE FLUSH Nutrition/Malnutrition Assess - Dietary Evaluation Nutrition/Malnutrition Findings: Nutrition Notes Start: 11/20/20 12:00 Freq: Status: Active Protocol: Document 11/25/20 13:29 STEPHANIE (Rec: 11/25/20 13:33 STEPHANIE [id number]) Nutrition Notes Initial or Follow up Reassessment Current Diagnosis Sepsis,Hypertension, Hyperlipidemia Other Pertinent Diagnosis Acute alcoholic pancreatitis, EtOH withdrawal delirium, ARF, GERD Current Diet Regular Labs/Tests Na 162 K 3.5 Pertinent Medications D% 1/2 NS at 150 ml/hr Height 5 ft 10 in Weight 69.3 kg [place] Body Weight (kg) 75.45 BMI 21.9 Weight change and time frame Wt change noted, will follow for trends Weight Status Appropriate Subjective/Other Information FU for intakes. Pt refused Ensure or water at time of visit. Per RN, pt refusing meals and medications. Pt may need TF if continues to refuse meals. Multiple unopened ONS in room. Burn Absent Trauma Absent Minimum of two criteria No #2 Nutrition Diagnosis Inadequate oral intake Etiology unknown As Evidenced by Signs and Symptoms pt refusing meals Diagnosis Progress(for reassessment Continues documentation) #1 Nutrition Diagnosis Altered GI function Diagnosis Progress(for reassessment Continues documentation) Is patient on ventilator? No Is Patient Ambulatory and/or Out of Bed No REE-([facility]-confined to bed) 1816.032 Calculation Used for Recommendations [facility] Additional Notes Pro needs 1-1.2g/k-98g/ day Fluid needs 1ml/kcal Nutrition Intervention Change Diet Order: Continue regular diet Add Supplement/Snack (indicate name/kcal D/c /protein ) Goal #1 Meet 75% of energy and protein needs Follow-Up By: 11/27/20 Additional Comments FU for intakes and/or plan of care
[2020-11-26 14:40] LABS: BUN/Creatinine Ratio 34; Blood Urea Nitrogen 27 mg/dL (9-20); Calcium 8.6 mg/dL (8.4-10.2); Hemolysis Index 28
--- NOTE | 2020-11-26 16:08 | Progress Note ---
Assessment and Plan Assessment Hypernatremia Hypokalemia Acidosis Azotemia Leukocytosis Pancreatitis Gram negative UTI, s/p zosyn Alcohol withdrawal Recommendations Continue D5 half-normal IV fluids Oral hydration Replete potassium when necessary Hold antihypertensives Keep MAP>65 Avoid nephrotoxins CIW protocol Subjective Date of service: 11/26/20 Principal diagnosis: EtOH dependence Interval history: Agitated this morning. Objective - Exam Narrative Exam: General: Mild distress HEENT: Oral mucosa moist Neck: Supple, no JVD Chest: Clear to auscultation bilaterally Heart: RRR, S1 and S2, no pericardial rub Abdomen: Distended, tender to palpation Extremity: No peripheral cyanosis, edema Neurological: Alert, awake, no asterixis Dermatology: No skin rash Psych: Agitated Musculoskeletal: No joint effusion - Vital Signs Vital signs: Vital Signs - 12hr 11/26/20 11/26/20 11/26/20 06:38 06:39 07:50 Temperature 98.7 F Pulse Rate 61 Pulse Rate [ 84 Anterior Bilateral] Respiratory 19 Rate Respiratory 16 Rate [Anterior Bilateral] Blood Pressure 108/62 O2 Sat by Pulse 85 96 Oximetry 11/26/20 11/26/20 11/26/20 09:05 09:32 10:00 Temperature Pulse Rate 104 H Pulse Rate [ Anterior Bilateral] Respiratory 26 H Rate Respiratory Rate [Anterior Bilateral] Blood Pressure 106/66 O2 Sat by Pulse 96 96 Oximetry 11/26/20 13:50 Temperature Pulse Rate Pulse Rate [ 88 Anterior Bilateral] Respiratory Rate Respiratory 16 Rate [Anterior Bilateral] Blood Pressure O2 Sat by Pulse Oximetry - Lab 11/25/20 04:14 11/26/20 14:00 Most recent lab results Calcium 8.6 mg/dL (8.4-10.2) 11/26/20 14:00 Phosphorus 3.00 mg/dL (2.5-4.5) D 11/23/20 04:54 Magnesium 2.60 mg/dL (1.7-2.3) H 11/24/20 05:06 Medications & Allergies - Medications Allergies/Adverse Reactions: Allergies No Known Allergies Allergy (Verified 10/25/19 12:42) Home Medications: Home Medications Medication Instructions Recorded Confirmed Last Taken Type Folic Acid [Folvite] 1 mg PO QDAY #30 tablet 10/27/19 11/20/20 11/18/20 Rx Colchicine 0.6 mg PO TID 11/20/20 11/20/20 Unknown History Cyanocobalamin (Vitamin B-12) 100 mcg PO QDAY 11/20/20 11/20/20 11/18/20 History Hydrochlorothiazide 12.5 mg PO QDAY 11/20/20 11/20/20 11/18/20 History Lipase/Protease/Amylase [Karen Au 1 cap PO TID 11/20/20 11/20/20 11/18/20 History 6,000 Units] Losartan Potassium 100 mg PO QDAY 11/20/20 11/20/20 11/18/20 History Meloxicam 15 mg PO DAILY 11/20/20 11/20/20 11/18/20 History Pantoprazole [Protonix TAB] 40 mg PO DAILY 11/20/20 11/20/20 11/18/20 History Potassium Gluconate [Potassium] 595 mg PO QDAY 11/20/20 11/20/20 11/18/20 History allopurinoL [Zyloprim] 300 mg PO DAILY 11/20/20 11/20/20 11/18/20 History amLODIPine 10 mg PO DAILY 11/20/20 11/20/20 11/18/20 11:00 History Active Medications: Generic Name Dose Route Start Last Admin Trade Name Freq PRN Reason Stop Dose Admin Acetaminophen 650 mg 11/20/20 14:00 11/25/20 23:32 Acetaminophen 325 Mg Tab PO 650 mg Q6H PRN Administration Pain, Mild (1-3) Albuterol 2.5 mg 11/21/20 09:51 11/26/20 13:50 Albuterol 2.5 Mg/3 Ml Nebu IH 2.5 mg TIDRT JANNETH Administration Enoxaparin Sodium 40 mg 11/19/20 19:00 11/26/20 08:38 Enoxaparin 40 Mg/0.4 Ml Inj SUB-Q 40 mg QDAY JANNETH Administration Folic Acid 1 mg 11/20/20 10:00 11/26/20 09:05 Folic Acid 1 Mg Tab PO 1 mg QDAY JANNETH Administration Haloperidol Lactate 5 mg 11/19/20 20:23 11/23/20 21:56 Haloperidol Lactate 5 Mg/1 Ml Inj IV 5 mg Q1HR PRN Administration Unrespon. to mult. doses BZD's Hydralazine HCl 10 mg 11/19/20 18:18 Hydralazine 20 Mg/1 Ml Inj IV Q4HR PRN Hypertension Dextrose/Sodium Chloride 1,000 mls @ 150 mls/hr 11/25/20 09:00 11/26/20 08:37 D5/0.45ns IV 150 mls/hr DIRECT JANNETH Administration Lorazepam 4 mg 11/21/20 16:22 Lorazepam 2 Mg/Ml Vial IV Q15MIN PRN CIWA-Ar >25 Lorazepam 4 mg 11/21/20 16:22 11/24/20 14:58 Lorazepam 2 Mg/Ml Vial IV 4 mg Q1HR PRN Administration CIWA-Ar 16-25 Lorazepam 2 mg 11/21/20 16:22 11/26/20 09:04 Lorazepam 2 Mg/Ml Vial IV 2 mg Q1HR PRN Administration CIWA-Ar 8-15 Losartan Potassium 100 mg 11/20/20 10:00 11/26/20 09:05 Losartan 50 Mg Tab PO Not Given QDAY JANNETH Morphine Sulfate 2 mg 11/20/20 10:30 11/25/20 23:40 Morphine 2 Mg/1 Ml Inj IV 2 mg Q6H PRN Administration Pain, Moderate (4-6) Naloxone HCl 0.1 mg 11/19/20 18:11 Naloxone 0.4 Mg/1 Ml Inj IV Q2MIN PRN Res Rate </= 8 or 02 SAT < 92% Ondansetron HCl 4 mg 11/19/20 18:11 11/22/20 02:12 Ondansetron 4 Mg/2 Ml Inj IV 4 mg Q8H PRN Administration Nausea And Vomiting Pantoprazole Sodium 40 mg 11/21/20 16:30 11/26/20 09:05 Pantoprazole 40 Mg Tab PO 40 mg BIDAC JANNETH Administration Sodium Chloride 10 ml 11/19/20 22:00 11/25/20 21:30 Sodium Chloride 0.9% 10 Ml Flush Syringe IV 10 ml BID JANNETH Administration Sodium Chloride 10 ml 11/19/20 19:11 11/24/20 01:59 Sodium Chloride 0.9% 10 Ml Flush Syringe IV 10 ml PRN PRN Administration LINE FLUSH
--- NOTE | 2020-11-26 20:53 | Progress Note ---
Assessment and Plan Assessment and Plan --Hypernatremia D5 half-normal saline Renal consult appreciated --Alcohol withdrawal delirium Current Visit: No Status: Acute Patient has tremulousness, agitation And severe confusion due to alcohol withdrawal symptoms Continue CIWA protocol ,Thiamine folic acid Restraints as needed --Acute /chronic pancreatitis/alcohol related Current Visit: No Status: Acute Symptoms significantly improved Tolerating clear liquids advance diet to regular Antiemetics, IV Protonix GI consult if no improvement --Acute kidney injury; Current Visit: Yes Status: Acute Improved --Hypertension Current Visit: No Status: Chronic Patient somewhat hypotensive. Will hold blood pressure medicines hydralazine 10 mg IV every 4 hours as needed . --Ongoing tobacco use Current Visit: No Status: Chronic Smoking cessation counseling Strongly advised nicotine patch. --Sepsis/secondary to UTI/pancreatitis Current Visit: No Status: Acute Leukocytosis, tachycardia, lactic acidosis and UTI/pancreatitis Empiric antibiotics, follow cultures, supportive care, IV fluids Urine cultures positive for gram-negative rods Continue Zosyn follow culture sensitivities --UTI/E. coli Current Visit: No Status: Acute Continue Zosyn, supportive care --Severe protein calorie malnutrition Current Visit: No Status: Acute Hypoalbuminemia , albumin 2.8 Nutrition supplements, nutrition consult and supportive care -- Metabolic acidosis Current Visit: Yes Status: Acute Plan to address problem: Secondary to uremia as well as chronic pancreatitis treat underlying etiology. --DVT prophylaxis Current Visit: Yes Status: Acute Heparin subcu We will closely monitor the patient and adjust management as needed Plan of care reviewed with the patient and his nurse Patient is severely agitated confused on CIWA protocol, Patient is restraint for safety Subjective Date of service: 11/25/20 Principal diagnosis: EtOH dependence Interval history: Brief history and hospital course; 60-year-old male patient was admitted with alcohol withdrawal symptoms On CIWA protocol patient continues to be agitated confused, and hallucinating Restrained for safety, sepsis secondary to UTI 11/20/2020; patient feels slightly better, no significant withdrawal symptoms Patient is on CIWA protocol, stable to be transferred out of [facility] to [facility] or 11/21/2020; patient has severe agitation tremulousness, patient is on CIWA protocol Closely monitor withdrawal symptoms, adjust the medications as needed Advance diet to regular as tolerated. I called patient's mother and also patient's daughter Ms. Huong Hua at [phone] 11/22/2020; Patient continues to be agitated confused mumbling, On CIWA protocol, restraint for safety. E. coli UTI on Zosyn Called again patient's daughter next of kin Ms. Huong Hua at [phone][number obtained from case aide Ms. Vo] Did not waste picker the phone I left a voicemail again today to discuss about Mr. Parada's condition and treatment plan 11/23/2020 Patient continues to be agitated 11/24/2020 Patient continues to be agitated 11/25/2020 Patient continues to be lethargic and agitated History Interval history: I have seen and examined the patient at the bedside Patient's chart and medications reviewed Patient is less agitated, confused, hallucinating On CIWA protocol Restraint for safety Vital signs noted Objective - Constitutional Vitals: Vital Signs - 12hr 11/26/20 11/26/20 11/26/20 09:05 09:32 10:00 Temperature Pulse Rate 104 H 108 H Pulse Rate [ Anterior Bilateral] Respiratory 26 H Rate Respiratory Rate [Anterior Bilateral] Blood Pressure 106/66 O2 Sat by Pulse 96 96 Oximetry 11/26/20 11/26/20 11/26/20 13:50 15:50 19:35 Temperature 98.6 F 101.5 F H Pulse Rate 57 L Pulse Rate [ 88 Anterior Bilateral] Respiratory 20 20 Rate Respiratory 16 Rate [Anterior Bilateral] Blood Pressure 109/65 109/59 O2 Sat by Pulse 84 Oximetry 11/26/20 19:36 Temperature Pulse Rate 105 H Pulse Rate [ Anterior Bilateral] Respiratory Rate Respiratory Rate [Anterior Bilateral] Blood Pressure O2 Sat by Pulse 100 Oximetry General appearance: Present: no acute distress, well-nourished - EENT Eyes: PERRL, EOM intact ENT: hearing intact, clear oral mucosa Ears: bilateral: normal - Neck Neck: supple, normal ROM - Respiratory Respiratory effort: normal Respiratory: bilateral: CTA - Breasts Breasts: normal - Cardiovascular Heart rate: 78 Rhythm: regular Heart Sounds: Present: S1 & S2. Absent: gallop, rub Extremities: pulses intact, No edema, normal color, Full ROM - Gastrointestinal General gastrointestinal: Present: soft, non-tender, non-distended, normal bowel sounds - Genitourinary Male genitourinary: normal - Integumentary Integumentary: clear, warm, dry - Musculoskeletal Musculoskeletal: 1, strength equal bilaterally - Neurologic Neurologic: moves all extremities - Psychiatric Psychiatric: memory intact, appropriate mood/affect, intact judgment & insight - Labs CBC & Chem 7: 11/25/20 04:14 11/26/20 14:00 Labs: Abnormal lab results 11/25/20 11/26/20 11/26/20 Range/Units 23:49 05:06 11:42 Sodium (137-145) mmol/L Chloride (98-107) mmol/L Carbon Dioxide (22-30) mmol/L BUN (9-20) mg/dL Glucose (75-100) mg/dL POC Glucose 123 H 128 H 129 H (70-105) mg/dL 11/26/20 Range/Units 14:00 Sodium 157 H (137-145) mmol/L Chloride 128.7 H (98-107) mmol/L Carbon Dioxide 17 L (22-30) mmol/L BUN 27 H (9-20) mg/dL Glucose 119 H (75-100) mg/dL POC Glucose (70-105) mg/dL HEART Score - HEART Score Troponin: Troponin T < 0.010 ng/mL (0.00-0.029) 11/19/20 22:51
[2020-11-26] MEDS: ACETAMINOPHEN 325 MG TAB PO PRN (21:56)
[2020-11-27] MEDS: D5W/0.45% NACL 1,000 ML IV SCH ×2 (00:25→06:15)
[2020-11-27] MEDS: LORazepam 2 MG/ML VIAL IV PRN (00:26)
[2020-11-27 06:25] LABS: BUN/Creatinine Ratio 23; Blood Urea Nitrogen 18 mg/dL (9-20); Hemolysis Index 74
[2020-11-27] MEDS: ALBUTEROL 2.5 MG/3 ML NEBU IH SCH ×3 (08:24→20:55)
[2020-11-27] MEDS: PANTOPRAZOLE 40 MG TAB PO SCH ×2 (09:29→16:40)
[2020-11-27] MEDS: LOSARTAN 50 MG TAB PO SCH (09:29)
[2020-11-27] MEDS: ENOXAPARIN 40 MG/0.4 ML INJ SUB-Q SCH (09:30)
[2020-11-27] MEDS: FOLIC ACID 1 MG TAB PO SCH (09:31)
[2020-11-27] MEDS ORDERED: POTASSIUM PHOSPHATE 40 MMOL in SODIUM CHLORIDE 0.9% 500 ML 500 ML IV ONE (12:30)
[2020-11-27] MEDS: MORPHINE 2 MG/1 ML INJ IV PRN (16:40)
[2020-11-27] MEDS: ONDANSETRON 4 MG/2 ML INJ IV PRN (16:40)
--- NOTE | 2020-11-27 18:43 | Progress Note ---
Assessment and Plan Assessment Hypernatremia Hypokalemia Acidosis Azotemia Leukocytosis Pancreatitis Gram negative UTI, s/p zosyn Alcohol withdrawal Recommendations Continue D5 half-normal IV fluids Oral hydration Replete potassium when necessary Hold antihypertensives Keep MAP>65 Avoid nephrotoxins [facility] protocol Subjective Date of service: 11/27/20 Principal diagnosis: EtOH dependence Interval history: Remains agitated. Objective - Exam Narrative Exam: General: Mild distress HEENT: Oral mucosa moist Neck: Supple, no JVD Chest: Clear to auscultation bilaterally Heart: RRR, S1 and S2, no pericardial rub Abdomen: Distended, tender to palpation Extremity: No peripheral cyanosis, edema Neurological: Alert, awake, no asterixis Dermatology: No skin rash Psych: Agitated Musculoskeletal: No joint effusion - Vital Signs Vital signs: Vital Signs - 12hr 11/27/20 11/27/20 11/27/20 07:45 08:15 09:11 Temperature 98.6 F Pulse Rate 111 H Pulse Rate [ 111 H Anterior Bilateral] Respiratory 18 Rate Respiratory 18 Rate [Anterior Bilateral] Blood Pressure 112/66 O2 Sat by Pulse 100 95 Oximetry 11/27/20 11/27/20 10:00 15:13 Temperature 99.3 F Pulse Rate 115 H 146 H Pulse Rate [ Anterior Bilateral] Respiratory 20 Rate Respiratory Rate [Anterior Bilateral] Blood Pressure 115/64 O2 Sat by Pulse 100 Oximetry - Lab 11/25/20 04:14 11/27/20 05:30 Most recent lab results ABG pH 7.453 (7.320-7.450) H 11/27/20 16:21 ABG O2 Saturation 92.3 (0-100) 11/27/20 16:21 Calcium 8.0 mg/dL (8.4-10.2) L 11/27/20 05:30 Phosphorus 1.80 mg/dL (2.5-4.5) L 11/27/20 05:30 Magnesium 2.00 mg/dL (1.7-2.3) 11/27/20 05:30 Medications & Allergies - Medications Allergies/Adverse Reactions: Allergies No Known Allergies Allergy (Verified 10/25/19 12:42) Home Medications: Home Medications Medication Instructions Recorded Confirmed Last Taken Type Folic Acid [Folvite] 1 mg PO QDAY #30 tablet 10/27/19 11/20/20 11/18/20 Rx Colchicine 0.6 mg PO TID 11/20/20 11/20/20 Unknown History Cyanocobalamin (Vitamin B-12) 100 mcg PO QDAY 11/20/20 11/20/20 11/18/20 History Hydrochlorothiazide 12.5 mg PO QDAY 11/20/20 11/20/20 11/18/20 History Lipase/Protease/Amylase [Creon Dr 1 cap PO TID 11/20/20 11/20/20 11/18/20 History 6,000 Units] Losartan Potassium 100 mg PO QDAY 11/20/20 11/20/20 11/18/20 History Meloxicam 15 mg PO DAILY 11/20/20 11/20/20 11/18/20 History Pantoprazole [Protonix TAB] 40 mg PO DAILY 11/20/20 11/20/20 11/18/20 History Potassium Gluconate [Potassium] 595 mg PO QDAY 11/20/20 11/20/20 11/18/20 History allopurinoL [Zyloprim] 300 mg PO DAILY 11/20/20 11/20/20 11/18/20 History amLODIPine 10 mg PO DAILY 11/20/20 11/20/20 11/18/20 11:00 History Active Medications: Generic Name Dose Route Start Last Admin Trade Name Freq PRN Reason Stop Dose Admin Acetaminophen 650 mg 11/20/20 14:00 11/26/20 21:56 Acetaminophen 325 Mg Tab PO 650 mg Q6H PRN Administration Pain, Mild (1-3) Albuterol 2.5 mg 11/21/20 09:51 11/27/20 14:43 Albuterol 2.5 Mg/3 Ml Nebu IH 2.5 mg TIDRT JANNETH Administration Enoxaparin Sodium 40 mg 11/19/20 19:00 11/27/20 09:30 Enoxaparin 40 Mg/0.4 Ml Inj SUB-Q 40 mg QDAY JANNETH Administration Folic Acid 1 mg 11/20/20 10:00 11/27/20 09:31 Folic Acid 1 Mg Tab PO 1 mg QDAY JANNETH Administration Haloperidol Lactate 5 mg 11/19/20 20:23 11/23/20 21:56 Haloperidol Lactate 5 Mg/1 Ml Inj IV 5 mg Q1HR PRN Administration Unrespon. to mult. doses BZD's Hydralazine HCl 10 mg 11/19/20 18:18 Hydralazine 20 Mg/1 Ml Inj IV Q4HR PRN Hypertension Dextrose/Sodium Chloride 1,000 mls @ 150 mls/hr 11/25/20 09:00 11/27/20 06:15 D5/0.45ns IV 150 mls/hr DIRECT JANNETH Administration Lorazepam 2 mg 11/27/20 12:30 Lorazepam 2 Mg/Ml Vial IV Q4H PRN Agitation Losartan Potassium 100 mg 11/20/20 10:00 11/27/20 09:29 Losartan 50 Mg Tab PO 100 mg QDAY JANNETH Administration Morphine Sulfate 2 mg 11/20/20 10:30 11/27/20 16:40 Morphine 2 Mg/1 Ml Inj IV 2 mg Q6H PRN Administration Pain, Moderate (4-6) Naloxone HCl 0.1 mg 11/19/20 18:11 Naloxone 0.4 Mg/1 Ml Inj IV Q2MIN PRN Res Rate </= 8 or 02 SAT < 92% Ondansetron HCl 4 mg 11/19/20 18:11 11/27/20 16:40 Ondansetron 4 Mg/2 Ml Inj IV 4 mg Q8H PRN Administration Nausea And Vomiting Pantoprazole Sodium 40 mg 11/21/20 16:30 11/27/20 16:40 Pantoprazole 40 Mg Tab PO 40 mg BIDAC JANNETH Administration Sodium Chloride 10 ml 11/19/20 22:00 11/27/20 09:31 Sodium Chloride 0.9% 10 Ml Flush Syringe IV 10 ml BID JANNETH Administration Sodium Chloride 10 ml 11/19/20 19:11 11/27/20 00:26 Sodium Chloride 0.9% 10 Ml Flush Syringe IV 10 ml PRN PRN Administration LINE FLUSH
--- NOTE | 2020-11-28 05:56 | Cat Scan Report ---
Examination: CT of the head without contrast Clinical information: Headache. Comparison: CT of the head without contrast, 04/19/2016 Technical: Multiple axial CT images of the head were obtained without intravenous contrast. Sagittal and coronal reformats were obtained. All CTs at this facility utilize dose reduction techniques inc luding automated exposure control, iterative reconstruction and weight based dosing when appropriate to reduce patient radiation dose to as low as reasonable achievable. Findings: INTRACRANIAL CONTENTS: There is no CT evidence of acute intracranial hemorrhage. The ventricular syst em remains normal in size. Confluent regions of hypodensity are again noted within the periventricula r and deep white matter bilaterally. There is no mass effect or midline shift. SKULL: No acute bony abnormality is visualized. ORBITS: The bilateral orbits and globes appear normal PARANASAL SINUSES / MASTOID AIR CELLS: Paranasal sinuses and mastoid air cells appear clear. Impression: 1. Changes associated with chronic small vessel disease. Signer Name: Shruti Russo MD Signed: 11/28/2020 5:51 AM Workstation Name: [id number]
[2020-11-28] MEDS: MORPHINE 2 MG/1 ML INJ IV PRN (06:35)
[2020-11-28] MEDS: D5W/0.45% NACL 1,000 ML IV SCH (06:39)
[2020-11-28] MEDS: ENOXAPARIN 40 MG/0.4 ML INJ SUB-Q SCH (09:41)
[2020-11-28] MEDS: PANTOPRAZOLE 40 MG TAB PO SCH ×2 (09:41→17:08)
[2020-11-28] MEDS: FOLIC ACID 1 MG TAB PO SCH (09:41)
[2020-11-28] MEDS: LOSARTAN 50 MG TAB PO SCH (09:41)
--- NOTE | 2020-11-28 10:45 | Electrocardiograph Report ---
[facility] Test Date: 2020-11-19 Test Time: 16:14:14 Pat Name: SABINA KIRKLAND Department: Room: A479 Gender: M Director Of Digital Marketing: CATHERINE : 1960 Requested By: ANNAMARIE DURANT Order Number: [id number] Reading MD: Tuan Holland Measurements Intervals [place] Rate: 106 P: 21 NV: 163 QRS: -44 QRSD: 88 T: 56 QT: 379 QTc: 499 Interpretive Statements Sinus tachycardia with frequent PACs Left axis deviation No previous ECG available for comparison Electronically Signed On 11-28-2020 10:45:28 EDT by Tuan Holland
[2020-11-28] MEDS: ALBUTEROL 2.5 MG/3 ML NEBU IH SCH ×3 (10:50→21:47)
[2020-11-28] MEDS ORDERED: METOPROLOL TARTRATE 25 MG TAB PO SCH (11:00)
[2020-11-28 11:18] LABS: BUN/Creatinine Ratio 20; Blood Urea Nitrogen 18 mg/dL (9-20); Calcium 8.1 mg/dL (8.4-10.2); Hemolysis Index 8
[2020-11-28] MEDS: LORazepam 2 MG/ML VIAL IV PRN (12:21)
[2020-11-28] MEDS ORDERED: FUROSEMIDE 40 MG/4 ML INJ IV ONE ×2 (13:29→13:30)
--- NOTE | 2020-11-28 13:35 | Progress Note ---
Assessment and Plan Assessment and plan: --Alcohol withdrawal delirium Current Visit: No Status: Acute Symptoms slightly improved Patient is more alert and awake Requiring restraints for safety On CIWA protocol If he is more alert and awake May get PT and OT to evaluate him Assess the DC needs Possible discharge in 1 to 2 days if stable --Acute /chronic pancreatitis/alcohol related Current Visit: No Status: Acute Symptoms significantly improved Currently on regular diet Antiemetics, IV Protonix --Acute kidney injury; Current Visit: Yes Status: Acute Vasomotor nephropathy, resolved --History of chronic ETOH abuse Current Visit: No Status: Chronic Education given to the patient advised to quit Also advised to seek alcohol rehabilitation And alcohol Anonymous support group When medically stable --Hypertension Current Visit: No Status: Chronic Moderate control continue current antihypertensives to 2 or 3 depending on --Ongoing tobacco use Current Visit: No Status: Chronic Smoking cessation counseling Strongly advised nicotine patch. --Sepsis/secondary to UTI/pancreatitis Current Visit: No Status: Acute Leukocytosis, tachycardia, lactic acidosis and UTI/pancreatitis Empiric antibiotics, follow cultures, supportive care, IV fluids Urine cultures positive for gram-negative rods Continue Zosyn follow culture sensitivities --UTI/E. coli Current Visit: No Status: Acute Continue Zosyn, supportive care --Severe protein calorie malnutrition Current Visit: No Status: Acute Hypoalbuminemia , albumin 2.8 Nutrition supplements, nutrition consult and supportive care -- Metabolic acidosis Current Visit: Yes Status: Acute Plan to address problem: Secondary to uremia as well as chronic pancreatitis treat underlying etiology. --DVT prophylaxis Current Visit: Yes Status: Acute Heparin subcu We will closely monitor the patient and adjust management as needed Plan of care reviewed with the patient and his nurse Patient is severely agitated confused on CIWA protocol, Patient is restraint for safety Subjective Date of service: 11/24/20 Principal diagnosis: EtOH dependence Interval history: Brief history and hospital course; 60-year-old male patient was admitted with alcohol withdrawal symptoms On CIWA protocol patient continues to be agitated confused, and hallucinating Restrained for safety, sepsis secondary to UTI 11/20/2020; patient feels slightly better, no significant withdrawal symptoms Patient is on CIWA protocol, stable to be transferred out of [facility] to medical floor 11/21/2020; patient has severe agitation tremulousness, patient is on CIWA protocol Closely monitor withdrawal symptoms, adjust the medications as needed Advance diet to regular as tolerated. I called patient's mother and also patient's daughter Ms. Huong Hua at [phone] 11/22/2020; Patient continues to be agitated confused mumbling, On CIWA protocol, restraint for safety. E. coli UTI on Zosyn Called again patient's daughter next of kin Ms. Huong Hua at [phone][number obtained from oil field caser Ms. Vo] Did not pickers material handlers the phone I left a voicemail again today to discuss about Mr. Parada's condition and treatment plan 11/23/2020 Patient continues to be agitated Resumed service 11/26/2020; Patient still has mild alcohol withdrawal symptoms On CIWA protocol More alert and awake responding appropriately Restraint for safety 11/27/2020; Patient is off CIWA protocol and restraints PT OT evaluation requested PT recommend subacute rehab DC planning per case management 11/28/2020; today patient has some mild shortness of breath and wheezing Tachycardia heart rate in 100 -110 , alert awake oriented x3 Possible fluid overload, give 1 dose of Lasix IV, checks chest x-ray Supportive care History Interval history: I have seen and examined the patient at the bedside this morning Patient's chart and medications reviewed No new events reported by nursing Patient is alert awake oriented Wants to get out of the bed and sit in the chair Slight tachycardia, mild shortness of breath Vital signs noted Hospitalist Physical - Constitutional Vitals: Temp Pulse Resp BP Pulse Ox 99.8 F H 98 H 16 111/68 95 11/28/20 07:42 11/28/20 10:00 11/28/20 07:42 11/28/20 09:41 11/28/20 09:37 General appearance: Present: mild distress, well-nourished - EENT Eyes: Present: PERRL, EOM intact - Neck Neck: Present: supple, normal ROM - Respiratory Respiratory effort: normal Respiratory: bilateral: diminished, rhonchi, negative: rales, wheezing - Cardiovascular Rhythm: regular Heart Sounds: Present: S1 & S2 (Tachycardia) - Extremities Extremities: no ischemia, No edema - Abdominal General gastrointestinal: soft, non-tender, non-distended - Integumentary Integumentary: Present: clear, warm - Psychiatric Psychiatric: appropriate mood/affect, cooperative - Neurologic Neurologic: CNII-XII intact, moves all extremities HEART Score - HEART Score Troponin: Troponin T < 0.010 ng/mL (0.00-0.029) 11/19/20 22:51 Results - Labs CBC & Chem 7: 11/25/20 04:14 11/28/20 10:44 Labs: Laboratory Last Values WBC 14.9 K/mm3 (4.5-11.0) H 11/25/20 04:14 RBC 3.61 M/mm3 (3.65-5.03) L 11/25/20 04:14 Hgb 9.3 gm/dl (11.8-15.2) L 11/25/20 04:14 Hct 28.1 % (35.5-45.6) L 11/25/20 04:14 MCV 78 fl (84-94) L 11/25/20 04:14 MCH 26 pg (28-32) L 11/25/20 04:14 MCHC 33 % (32-34) 11/25/20 04:14 RDW 18.1 % (13.2-15.2) H 11/25/20 04:14 Plt Count 375 K/mm3 (140-440) 11/25/20 04:14 Lymph % (Auto) 10.1 % (13.4-35.0) L 11/25/20 04:14 [place] % (Auto) 6.5 % (0.0-7.3) 11/25/20 04:14 Eos % (Auto) 0.8 % (0.0-4.3) 11/25/20 04:14 Baso % (Auto) 0.1 % (0.0-1.8) 11/25/20 04:14 Lymph # (Auto) 1.5 K/mm3 (1.2-5.4) 11/25/20 04:14 [place] # (Auto) 1.0 K/mm3 (0.0-0.8) H 11/25/20 04:14 Eos # (Auto) 0.1 K/mm3 (0.0-0.4) 11/25/20 04:14 Baso # (Auto) 0.0 K/mm3 (0.0-0.1) 11/25/20 04:14 Add Manual Diff Complete 11/23/20 04:54 Total Counted 200 11/23/20 04:54 Seg Neutrophils % 82.5 % (40.0-70.0) H 11/25/20 04:14 Seg Neuts % (Manual) 95.5 % (40.0-70.0) H 11/23/20 04:54 Band Neutrophils % 0.5 % 11/23/20 04:54 Lymphocytes % (Manual) 3.0 % (13.4-35.0) L 11/23/20 04:54 Monocytes % (Manual) 1.0 % (0.0-7.3) 11/23/20 04:54 Eosinophils % (Manual) 1.0 % (0.0-4.3) 11/22/20 05:12 Nucleated RBC % Not Reportable 11/23/20 04:54 Seg Neutrophils # 12.3 K/mm3 (1.8-7.7) H 11/25/20 04:14 Seg Neutrophils # Man 19.4 K/mm3 (1.8-7.7) H 11/23/20 04:54 Band Neutrophils # 0.1 K/mm3 11/23/20 04:54 Lymphocytes # (Manual) 0.6 K/mm3 (1.2-5.4) L 11/23/20 04:54 Abs React Lymphs (Man) 0.0 K/mm3 11/23/20 04:54 Monocytes # (Manual) 0.2 K/mm3 (0.0-0.8) 11/23/20 04:54 Eosinophils # (Manual) 0.0 K/mm3 (0.0-0.4) 11/23/20 04:54 Basophils # (Manual) 0.0 K/mm3 (0.0-0.1) 11/23/20 04:54 Metamyelocytes # 0.0 K/mm3 11/23/20 04:54 Myelocytes # 0.0 K/mm3 11/23/20 04:54 Promyelocytes # 0.0 K/mm3 11/23/20 04:54 Blast Cells # 0.0 K/mm3 11/23/20 04:54 WBC Morphology Not Reportable 11/23/20 04:54 Hypersegmented Neuts Not Reportable 11/23/20 04:54 Hyposegmented Neuts Not Reportable 11/23/20 04:54 Hypogranular Neuts Not Reportable 11/23/20 04:54 Smudge Cells Not Reportable 11/23/20 04:54 Toxic Granulation Not Reportable 11/23/20 04:54 Toxic Vacuolation Not Reportable 11/23/20 04:54 Dohle Bodies Not Reportable 11/23/20 04:54 Pelger-Huet Anomaly Not Reportable 11/23/20 04:54 Aiden Rods Not Reportable 11/23/20 04:54 Platelet Estimate Consistent w auto 11/23/20 04:54 Clumped Platelets Not Reportable 11/23/20 04:54 Plt Clumps, EDTA Not Reportable 11/23/20 04:54 Large Platelets Not Reportable 11/23/20 04:54 Giant Platelets Not Reportable 11/23/20 04:54 Platelet Satelliting Not Reportable 11/23/20 04:54 Plt Morphology Comment Not Reportable 11/23/20 04:54 RBC Morphology Not Reportable 11/23/20 04:54 Dimorphic RBCs Not Reportable 11/23/20 04:54 Polychromasia Not Reportable 11/23/20 04:54 Hypochromasia Not Reportable 11/23/20 04:54 Poikilocytosis Not Reportable 11/23/20 04:54 Anisocytosis 1+ 11/23/20 04:54 Microcytosis Not Reportable 11/23/20 04:54 Macrocytosis Not Reportable 11/23/20 04:54 Spherocytes Not Reportable 11/23/20 04:54 Pappenheimer Bodies Not Reportable 11/23/20 04:54 Sickle Cells Not Reportable 11/23/20 04:54 Target Cells 2+ 11/23/20 04:54 Tear Drop Cells Not Reportable 11/23/20 04:54 Ovalocytes Not Reportable 11/23/20 04:54 Helmet Cells Not Reportable 11/23/20 04:54 [place] Bodies Not Reportable 11/23/20 04:54 Duson Rings Not Reportable 11/23/20 04:54 Stevie Cells Not Reportable 11/23/20 04:54 Bite Cells Not Reportable 11/23/20 04:54 Crenated Cell Not Reportable 11/23/20 04:54 Elliptocytes Not Reportable 11/23/20 04:54 Acanthocytes (Spur) Not Reportable 11/23/20 04:54 Rouleaux Not Reportable 11/23/20 04:54 Hemoglobin C Crystals Not Reportable 11/23/20 04:54 Schistocytes Not Reportable 11/23/20 04:54 Malaria parasites Not Reportable 11/23/20 04:54 Florin Bodies Not Reportable 11/23/20 04:54 Hem Pathologist Commnt No 11/23/20 04:54 PT 16.1 Sec. (12.2-14.9) H 11/19/20 16:44 INR 1.24 (0.87-1.13) H 11/19/20 16:44 APTT 34.3 Sec. (24.2-36.6) 11/19/20 16:44 D-Dimer 1767.06 ng/mlDDU (0-234) H 11/19/20 16:44 ABG pH 7.453 (7.320-7.450) H 11/27/20 16:21 POC ABG pCO2 20.7 mmHg (32.0-48.0) L 11/27/20 16: POC ABG pO2 56.2 mmHg (83-108) L 11/27/20 16:21 ABG O2 Saturation 92.3 (0-100) 11/27/20 16:21 ABG Hemoglobin 8.8 (12.0-17.5) L 11/27/20 16: ABG Oxyhemoglobin 90.7 (94-98) L 11/27/20 16:21 ABG Methemoglobin 0.3 (0.0-1.5) 11/27/20 16:21 ABG Sodium 148.6 mmol/L (136.0-145.0) H 11/27/20 16:21 ABG Potassium 3.7 mmol/L (3.40-4.50) 11/27/20 16:21 ABG Chloride 121.0 mmol/L (98-107) H 11/27/20 16:21 ABG Glucose 122 mg/dL (65-95) H 11/27/20 16:21 Carboxyhemoglobin 1.4 (0.5-1.5) 11/27/20 16:21 FiO2 % 21.0 11/27/20 16:21 Sodium 147 mmol/L (137-145) H 11/28/20 10:44 Potassium 4.2 mmol/L (3.6-5.0) 11/28/20 10:44 Chloride 118.5 mmol/L (98-107) H 11/28/20 10:44 Carbon Dioxide 16 mmol/L (22-30) L 11/28/20 10:44 Anion Gap 17 mmol/L 11/28/20 10:44 BUN 18 mg/dL (9-20) 11/28/20 10:44 Creatinine 0.9 mg/dL (0.8-1.3) 11/28/20 10:44 Estimated GFR > 60 ml/min 11/28/20 10:44 BUN/Creatinine Ratio 20 % 11/28/20 10:44 Glucose 125 mg/dL (75-100) H 11/28/20 10:44 POC Glucose 94 mg/dL (70-105) 11/28/20 06:31 Lactic Acid 3.10 mmol/L (0.7-2.0) H* 11/19/20 18:28 Calcium 8.1 mg/dL (8.4-10.2) L 11/28/20 10:44 Phosphorus 1.80 mg/dL (2.5-4.5) L 11/27/20 05:30 Magnesium 2.00 mg/dL (1.7-2.3) 11/27/20 05:30 Total Bilirubin 1.70 mg/dL (0.1-1.2) H 11/25/20 04:14 Direct Bilirubin 0.2 mg/dL (0-0.2) 11/19/20 16:44 Indirect Bilirubin 0.3 mg/dL 11/19/20 16:44 AST 25 units/L (5-40) 11/25/20 04:14 ALT 32 units/L (7-56) 11/25/20 04:14 Alkaline Phosphatase 210 units/L (35-129) H 11/25/20 04:14 Total Creatine Kinase 26 units/L (55-170) L 11/19/20 16:44 CK-MB (CK-2) < 1.0 ng/mL (0.0-4.0) 11/19/20 16:44 CK-MB (CK-2) Rel Index 3.8 (0-4) 11/19/20 16:44 Troponin T < 0.010 ng/mL (0.00-0.029) 11/19/20 22:51 NT-Pro-B Natriuret Pep 454.0 pg/mL (0-900) 11/19/20 16:44 Total Protein 6.5 g/dL (6.3-8.2) 11/25/20 04:14 Albumin 2.5 g/dL (3.9-5) L 11/25/20 04:14 Albumin/Globulin Ratio 0.6 % 11/25/20 04:14 Lipase 67 units/L (13-60) H 11/20/20 07:58 Arterial Blood Glucose 122 mg/dL (65-95) H 11/27/20 16:21 Urine Color Yellow (Yellow) 11/19/20 19:18 Urine Turbidity Slightly-cloudy (Clear) 11/19/20 19:18 Urine pH 5.0 (5.0-7.0) 11/19/20 19:18 Ur Specific Mccarley 1.023 (1.003-1.030) 11/19/20 19:18 Urine Protein <15 mg/dl mg/dL (Negative) 11/19/20 19:18 Urine Glucose (UA) Neg mg/dL (Negative) 11/19/20 19:18 Urine Ketones Neg mg/dL (Negative) 11/19/20 19:18 Urine Blood Neg (Negative) 11/19/20 19:18 Urine Nitrite Neg (Negative) 11/19/20 19:18 Urine Bilirubin Neg (Negative) 11/19/20 19:18 Urine Urobilinogen < 2.0 mg/dL (<2.0) 11/19/20 19:18 Ur Leukocyte Esterase Mod (Negative) 11/19/20 19:18 Urine WBC (Auto) 33.0 /HPF (0.0-6.0) H 11/19/20 19:18 Urine RBC (Auto) 4.0 /HPF (0.0-6.0) 11/19/20 19:18 U Epithel Cells (Auto) 6.0 /HPF (0-13.0) 11/19/20 19:18 Urine Bacteria (Auto) 1+ /HPF (Negative) 11/19/20 19:18 Hyaline Casts 1 /LPF 11/19/20 19:18 Urine Mucus Few /HPF 11/19/20 19:18 Nasal Screen MRSA (PCR) Negative (Negative) 11/20/20 Unknown Urine Opiates Screen Negative 11/19/20 19:18 Urine Methadone Screen Negative 11/19/20 19:18 Ur Barbiturates Screen Negative 11/19/20 19:18 Ur Phencyclidine Scrn Negative 11/19/20 19:18 Ur Amphetamines Screen Negative 11/19/20 19:18 U Benzodiazepines Scrn Negative 11/19/20 19:18 Urine Cocaine Screen Negative 11/19/20 19:18 U Marijuana (THC) Screen Negative 11/19/20 19:18 Drugs of Abuse Note Disclamer 11/19/20 19:18 Viramontes/IV: Voiding Method Condom Catheter Active Medications - Current Medications Current Medications: Generic Name Dose Route Start Last Admin Trade Name Freq PRN Reason Stop Dose Admin Acetaminophen 650 mg 11/20/20 14:00 11/26/20 21:56 Acetaminophen 325 Mg Tab PO 650 mg Q6H PRN Administration Pain, Mild (1-3) Albuterol 2.5 mg 11/21/20 09:51 11/28/20 10:50 Albuterol 2.5 Mg/3 Ml Nebu IH 2.5 mg TIDRT JANNETH Administration Enoxaparin Sodium 40 mg 11/19/20 19:00 11/28/20 09:41 Enoxaparin 40 Mg/0.4 Ml Inj SUB-Q 40 mg QDAY JANNETH Administration Folic Acid 1 mg 11/20/20 10:00 11/28/20 09:41 Folic Acid 1 Mg Tab PO 1 mg QDAY JANNETH Administration Haloperidol Lactate 5 mg 11/19/20 20:23 11/23/20 21:56 Haloperidol Lactate 5 Mg/1 Ml Inj IV 5 mg Q1HR PRN Administration Unrespon. to mult. doses BZD's Hydralazine HCl 10 mg 11/19/20 18:18 Hydralazine 20 Mg/1 Ml Inj IV Q4HR PRN Hypertension Dextrose/Sodium Chloride 1,000 mls @ 150 mls/hr 11/25/20 09:00 11/28/20 06:39 D5/0.45ns IV 150 mls/hr DIRECT JANNETH Administration Lorazepam 2 mg 11/27/20 12:30 11/28/20 12:21 Lorazepam 2 Mg/Ml Vial IV 2 mg Q4H PRN Administration Agitation Losartan Potassium 100 mg 11/20/20 10:00 11/28/20 09:41 Losartan 50 Mg Tab PO 100 mg QDAY JANNETH Administration Metoprolol Tartrate 12.5 mg 11/28/20 22:00 Metoprolol Tartrate 25 Mg Tab PO BID JANNETH Morphine Sulfate 2 mg 11/20/20 10:30 11/28/20 06:35 Morphine 2 Mg/1 Ml Inj IV 2 mg Q6H PRN Administration Pain, Moderate (4-6) Naloxone HCl 0.1 mg 11/19/20 18:11 Naloxone 0.4 Mg/1 Ml Inj IV Q2MIN PRN Res Rate </= 8 or 02 SAT < 92% Ondansetron HCl 4 mg 11/19/20 18:11 11/27/20 16:40 Ondansetron 4 Mg/2 Ml Inj IV 4 mg Q8H PRN Administration Nausea And Vomiting Pantoprazole Sodium 40 mg 11/21/20 16:30 11/28/20 09:41 Pantoprazole 40 Mg Tab PO 40 mg BIDAC JANNETH Administration Sodium Chloride 10 ml 11/19/20 22:00 11/28/20 09:42 Sodium Chloride 0.9% 10 Ml Flush Syringe IV 10 ml BID JANNETH Administration Sodium Chloride 10 ml 11/19/20 19:11 11/28/20 06:39 Sodium Chloride 0.9% 10 Ml Flush Syringe IV 10 ml PRN PRN Administration LINE FLUSH Nutrition/Malnutrition Assess - Dietary Evaluation Nutrition/Malnutrition Findings: Nutrition Notes Start: 11/20/20 12:00 Freq: Status: Active Protocol: Document 11/27/20 14:22 (Rec: 11/27/20 14:26 [id number]) Nutrition Notes Initial or Follow up Reassessment Current Diagnosis Sepsis,Hypertension, Hyperlipidemia Other Pertinent Diagnosis Acute alcoholic pancreatitis, EtOH withdrawal delirium, ARF, GERD Current Diet Regular Labs/Tests Na 151 Phos 1.8 Pertinent Medications D% 1/2 NS at 150 ml/hr Height 5 ft 10 in Weight 69.3 kg [place] Body Weight (kg) 75.45 BMI 21.9 Weight Status Appropriate Subjective/Other Information FU for intakes. Pt drank 100% of one ONS at time of visit. Pt did not eat breakfast. Multiple ONS still in room. Pt appears more alert today. Percent of energy/protein needs met: 19%/24% Burn Absent Trauma Absent Current % PO Poor (25-49%) Minimum of two criteria No #2 Nutrition Diagnosis Inadequate oral intake As Evidenced by Signs and Symptoms pt drank Ensure Diagnosis Progress(for reassessment Improved documentation) Is patient on ventilator? No Is Patient Ambulatory and/or Out of Bed No REE-([facility]-confined to bed) 1816.032 Calculation Used for Recommendations [facility] Additional Notes Pro needs 1-1.2g/k-98g/ day Fluid needs 1ml/kcal Nutrition Intervention Change Diet Order: Continue regular diet Add Supplement/Snack (indicate name/kcal D/c /protein ) Goal #1 Meet 75% of energy and protein needs Follow-Up By: 11/29/20 Additional Comments FU for intakes and need for more ONS
--- NOTE | 2020-11-28 13:36 | Progress Note ---
Assessment and Plan Assessment and plan: --Alcohol withdrawal delirium Current Visit: No Status: Acute Symptoms slightly improved Patient is more alert and awake Requiring restraints for safety On CIWA protocol If he is more alert and awake May get PT and OT to evaluate him Assess the DC needs Possible discharge in 1 to 2 days if stable --Acute /chronic pancreatitis/alcohol related Current Visit: No Status: Acute Symptoms significantly improved Currently on regular diet Antiemetics, IV Protonix --Acute kidney injury; Current Visit: Yes Status: Acute Vasomotor nephropathy, resolved --History of chronic ETOH abuse Current Visit: No Status: Chronic Education given to the patient advised to quit Also advised to seek alcohol rehabilitation And alcohol Anonymous support group When medically stable --Hypertension Current Visit: No Status: Chronic Moderate control continue current antihypertensives to 2 or 3 depending on --Ongoing tobacco use Current Visit: No Status: Chronic Smoking cessation counseling Strongly advised nicotine patch. --Sepsis/secondary to UTI/pancreatitis Current Visit: No Status: Acute Leukocytosis, tachycardia, lactic acidosis and UTI/pancreatitis Empiric antibiotics, follow cultures, supportive care, IV fluids Urine cultures positive for gram-negative rods Continue Zosyn follow culture sensitivities --UTI/E. coli Current Visit: No Status: Acute Continue Zosyn, supportive care --Severe protein calorie malnutrition Current Visit: No Status: Acute Hypoalbuminemia , albumin 2.8 Nutrition supplements, nutrition consult and supportive care -- Metabolic acidosis Current Visit: Yes Status: Acute Plan to address problem: Secondary to uremia as well as chronic pancreatitis treat underlying etiology. --DVT prophylaxis Current Visit: Yes Status: Acute Heparin subcu We will closely monitor the patient and adjust management as needed Plan of care reviewed with the patient and his nurse Patient is severely agitated confused on CIWA protocol, Patient is restraint for safety Subjective Date of service: 11/24/20 Principal diagnosis: EtOH dependence Interval history: Brief history and hospital course; 60-year-old male patient was admitted with alcohol withdrawal symptoms On CIWA protocol patient continues to be agitated confused, and hallucinating Restrained for safety, sepsis secondary to UTI 11/20/2020; patient feels slightly better, no significant withdrawal symptoms Patient is on CIWA protocol, stable to be transferred out of [facility] to medical floor 11/21/2020; patient has severe agitation tremulousness, patient is on CIWA protocol Closely monitor withdrawal symptoms, adjust the medications as needed Advance diet to regular as tolerated. I called patient's mother and also patient's daughter Ms. Huong Hua at [phone] 11/22/2020; Patient continues to be agitated confused mumbling, On CIWA protocol, restraint for safety. E. coli UTI on Zosyn Called again patient's daughter next of kin Ms. Huong Hua at [phone][number obtained from embedded case manager Ms. 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 Parada's condition and treatment plan 11/23/2020 Patient continues to be agitated Resumed service 11/26/2020; Patient still has mild alcohol withdrawal symptoms On CIWA protocol More alert and awake responding appropriately Restraint for safety 11/27/2020; Patient is off CIWA protocol and restraints PT OT evaluation requested PT recommend subacute rehab DC planning per case management History Interval history: Seen and examined patient this morning at the bedside Patient is on CIWA protocol More alert and awake responding appropriately Restraint for safety No new events reported by nursing Vital signs noted Hospitalist Physical - Constitutional Vitals: Temp Pulse Resp BP Pulse Ox 99.8 F H 98 H 16 111/68 95 11/28/20 07:42 11/28/20 10:00 11/28/20 07:42 11/28/20 09:41 11/28/20 09:37 General appearance: Present: no acute distress, well-nourished - EENT Eyes: Present: PERRL, EOM intact - Neck Neck: Present: supple, normal ROM - Respiratory Respiratory effort: normal Respiratory: bilateral: diminished, negative: rales, rhonchi, wheezing - Cardiovascular Rhythm: regular Heart Sounds: Present: S1 & S2 - Extremities Extremities: No edema, normal temperature, normal color - Abdominal General gastrointestinal: soft, non-tender, non-distended, normal bowel sounds - Integumentary Integumentary: Present: clear, warm - Psychiatric Psychiatric: appropriate mood/affect, cooperative - Neurologic Neurologic: CNII-XII intact, moves all extremities HEART Score - HEART Score Troponin: Troponin T < 0.010 ng/mL (0.00-0.029) 11/19/20 22:51 Results - Labs CBC & Chem 7: 11/25/20 04:14 11/28/20 10:44 Labs: Laboratory Last Values WBC 14.9 K/mm3 (4.5-11.0) H 11/25/20 04:14 RBC 3.61 M/mm3 (3.65-5.03) L 11/25/20 04:14 Hgb 9.3 gm/dl (11.8-15.2) L 11/25/20 04:14 Hct 28.1 % (35.5-45.6) L 11/25/20 04:14 MCV 78 fl (84-94) L 11/25/20 04:14 MCH 26 pg (28-32) L 11/25/20 04:14 MCHC 33 % (32-34) 11/25/20 04:14 RDW 18.1 % (13.2-15.2) H 11/25/20 04:14 Plt Count 375 K/mm3 (140-440) 11/25/20 04:14 Lymph % (Auto) 10.1 % (13.4-35.0) L 11/25/20 04:14 [place] % (Auto) 6.5 % (0.0-7.3) 11/25/20 04:14 Eos % (Auto) 0.8 % (0.0-4.3) 11/25/20 04:14 Baso % (Auto) 0.1 % (0.0-1.8) 11/25/20 04:14 Lymph # (Auto) 1.5 K/mm3 (1.2-5.4) 11/25/20 04:14 [place] # (Auto) 1.0 K/mm3 (0.0-0.8) H 11/25/20 04:14 Eos # (Auto) 0.1 K/mm3 (0.0-0.4) 11/25/20 04:14 Baso # (Auto) 0.0 K/mm3 (0.0-0.1) 11/25/20 04:14 Add Manual Diff Complete 11/23/20 04:54 Total Counted 200 11/23/20 04:54 Seg Neutrophils % 82.5 % (40.0-70.0) H 11/25/20 04:14 Seg Neuts % (Manual) 95.5 % (40.0-70.0) H 11/23/20 04:54 Band Neutrophils % 0.5 % 11/23/20 04:54 Lymphocytes % (Manual) 3.0 % (13.4-35.0) L 11/23/20 04:54 Monocytes % (Manual) 1.0 % (0.0-7.3) 11/23/20 04:54 Eosinophils % (Manual) 1.0 % (0.0-4.3) 11/22/20 05:12 Nucleated RBC % Not Reportable 11/23/20 04:54 Seg Neutrophils # 12.3 K/mm3 (1.8-7.7) H 11/25/20 04:14 Seg Neutrophils # Man 19.4 K/mm3 (1.8-7.7) H 11/23/20 04:54 Band Neutrophils # 0.1 K/mm3 11/23/20 04:54 Lymphocytes # (Manual) 0.6 K/mm3 (1.2-5.4) L 11/23/20 04:54 Abs React Lymphs (Man) 0.0 K/mm3 11/23/20 04:54 Monocytes # (Manual) 0.2 K/mm3 (0.0-0.8) 11/23/20 04:54 Eosinophils # (Manual) 0.0 K/mm3 (0.0-0.4) 11/23/20 04:54 Basophils # (Manual) 0.0 K/mm3 (0.0-0.1) 11/23/20 04:54 Metamyelocytes # 0.0 K/mm3 11/23/20 04:54 Myelocytes # 0.0 K/mm3 11/23/20 04:54 Promyelocytes # 0.0 K/mm3 11/23/20 04:54 Blast Cells # 0.0 K/mm3 11/23/20 04:54 WBC Morphology Not Reportable 11/23/20 04:54 Hypersegmented Neuts Not Reportable 11/23/20 04:54 Hyposegmented Neuts Not Reportable 11/23/20 04:54 Hypogranular Neuts Not Reportable 11/23/20 04:54 Smudge Cells Not Reportable 11/23/20 04:54 Toxic Granulation Not Reportable 11/23/20 04:54 Toxic Vacuolation Not Reportable 11/23/20 04:54 Dohle Bodies Not Reportable 11/23/20 04:54 Pelger-Huet Anomaly Not Reportable 11/23/20 04:54 Aiden Rods Not Reportable 11/23/20 04:54 Platelet Estimate Consistent w auto 11/23/20 04:54 Clumped Platelets Not Reportable 11/23/20 04:54 Plt Clumps, EDTA Not Reportable 11/23/20 04:54 Large Platelets Not Reportable 11/23/20 04:54 Giant Platelets Not Reportable 11/23/20 04:54 Platelet Satelliting Not Reportable 11/23/20 04:54 Plt Morphology Comment Not Reportable 11/23/20 04:54 RBC Morphology Not Reportable 11/23/20 04:54 Dimorphic RBCs Not Reportable 11/23/20 04:54 Polychromasia Not Reportable 11/23/20 04:54 Hypochromasia Not Reportable 11/23/20 04:54 Poikilocytosis Not Reportable 11/23/20 04:54 Anisocytosis 1+ 11/23/20 04:54 Microcytosis Not Reportable 11/23/20 04:54 Macrocytosis Not Reportable 11/23/20 04:54 Spherocytes Not Reportable 11/23/20 04:54 Pappenheimer Bodies Not Reportable 11/23/20 04:54 Sickle Cells Not Reportable 11/23/20 04:54 Target Cells 2+ 11/23/20 04:54 Tear Drop Cells Not Reportable 11/23/20 04:54 Ovalocytes Not Reportable 11/23/20 04:54 Helmet Cells Not Reportable 11/23/20 04:54 [place] Bodies Not Reportable 11/23/20 04:54 [place] Rings Not Reportable 11/23/20 04:54 [place] Cells Not Reportable 11/23/20 04:54 Bite Cells Not Reportable 11/23/20 04:54 Crenated Cell Not Reportable 11/23/20 04:54 Elliptocytes Not Reportable 11/23/20 04:54 Acanthocytes (Spur) Not Reportable 11/23/20 04:54 Rouleaux Not Reportable 11/23/20 04:54 Hemoglobin C Crystals Not Reportable 11/23/20 04:54 Schistocytes Not Reportable 11/23/20 04:54 Malaria parasites Not Reportable 11/23/20 04:54 Florin Bodies Not Reportable 11/23/20 04:54 Hem Pathologist Commnt No 11/23/20 04:54 PT 16.1 Sec. (12.2-14.9) H 11/19/20 16:44 INR 1.24 (0.87-1.13) H 11/19/20 16:44 APTT 34.3 Sec. (24.2-36.6) 11/19/20 16:44 D-Dimer 1767.06 ng/mlDDU (0-234) H 11/19/20 16:44 ABG pH 7.453 (7.320-7.450) H 11/27/20 16:21 POC ABG pCO2 20.7 mmHg (32.0-48.0) L 11/27/20 16: POC ABG pO2 56.2 mmHg (83-108) L 11/27/20 16: ABG O2 Saturation 92.3 (0-100) 11/27/20 16:21 ABG Hemoglobin 8.8 (12.0-17.5) L 11/27/20 16: ABG Oxyhemoglobin 90.7 (94-98) L 11/27/20 16:21 ABG Methemoglobin 0.3 (0.0-1.5) 11/27/20 16:21 ABG Sodium 148.6 mmol/L (136.0-145.0) H 11/27/20 16:21 ABG Potassium 3.7 mmol/L (3.40-4.50) 11/27/20 16:21 ABG Chloride 121.0 mmol/L (98-107) H 11/27/20 16:21 ABG Glucose 122 mg/dL (65-95) H 11/27/20 16:21 Carboxyhemoglobin 1.4 (0.5-1.5) 11/27/20 16:21 FiO2 % 21.0 11/27/20 16: Sodium 147 mmol/L (137-145) H 11/28/20 10:44 Potassium 4.2 mmol/L (3.6-5.0) 11/28/20 10:44 Chloride 118.5 mmol/L (98-107) H 11/28/20 10:44 Carbon Dioxide 16 mmol/L (22-30) L 11/28/20 10:44 Anion Gap 17 mmol/L 11/28/20 10:44 BUN 18 mg/dL (9-20) 11/28/20 10:44 Creatinine 0.9 mg/dL (0.8-1.3) 11/28/20 10:44 Estimated GFR > 60 ml/min 11/28/20 10:44 BUN/Creatinine Ratio 20 % 11/28/20 10:44 Glucose 125 mg/dL (75-100) H 11/28/20 10:44 POC Glucose 94 mg/dL (70-105) 11/28/20 06:31 Lactic Acid 3.10 mmol/L (0.7-2.0) H* 11/19/20 18:28 Calcium 8.1 mg/dL (8.4-10.2) L 11/28/20 10:44 Phosphorus 1.80 mg/dL (2.5-4.5) L 11/27/20 05:30 Magnesium 2.00 mg/dL (1.7-2.3) 11/27/20 05:30 Total Bilirubin 1.70 mg/dL (0.1-1.2) H 11/25/20 04:14 Direct Bilirubin 0.2 mg/dL (0-0.2) 11/19/20 16:44 Indirect Bilirubin 0.3 mg/dL 11/19/20 16:44 AST 25 units/L (5-40) 11/25/20 04:14 ALT 32 units/L (7-56) 11/25/20 04:14 Alkaline Phosphatase 210 units/L (35-129) H 11/25/20 04:14 Total Creatine Kinase 26 units/L (55-170) L 11/19/20 16:44 CK-MB (CK-2) < 1.0 ng/mL (0.0-4.0) 11/19/20 16:44 CK-MB (CK-2) Rel Index 3.8 (0-4) 11/19/20 16:44 Troponin T < 0.010 ng/mL (0.00-0.029) 11/19/20 22:51 NT-Pro-B Natriuret Pep 454.0 pg/mL (0-900) 11/19/20 16:44 Total Protein 6.5 g/dL (6.3-8.2) 11/25/20 04:14 Albumin 2.5 g/dL (3.9-5) L 11/25/20 04:14 Albumin/Globulin Ratio 0.6 % 11/25/20 04:14 Lipase 67 units/L (13-60) H 11/20/20 07:58 Arterial Blood Glucose 122 mg/dL (65-95) H 11/27/20 16:21 Urine Color Yellow (Yellow) 11/19/20 19:18 Urine Turbidity Slightly-cloudy (Clear) 11/19/20 19:18 Urine pH 5.0 (5.0-7.0) 11/19/20 19:18 Ur Specific [place] 1.023 (1.003-1.030) 11/19/20 19:18 Urine Protein <15 mg/dl mg/dL (Negative) 11/19/20 19:18 Urine Glucose (UA) Neg mg/dL (Negative) 11/19/20 19:18 Urine Ketones Neg mg/dL (Negative) 11/19/20 19:18 Urine Blood Neg (Negative) 11/19/20 19:18 Urine Nitrite Neg (Negative) 11/19/20 19:18 Urine Bilirubin Neg (Negative) 11/19/20 19:18 Urine Urobilinogen < 2.0 mg/dL (<2.0) 11/19/20 19:18 Ur Leukocyte Esterase Mod (Negative) 11/19/20 19:18 Urine WBC (Auto) 33.0 /HPF (0.0-6.0) H 11/19/20 19:18 Urine RBC (Auto) 4.0 /HPF (0.0-6.0) 11/19/20 19:18 U Epithel Cells (Auto) 6.0 /HPF (0-13.0) 11/19/20 19:18 Urine Bacteria (Auto) 1+ /HPF (Negative) 11/19/20 19:18 Hyaline Casts 1 /LPF 11/19/20 19:18 Urine Mucus Few /HPF 11/19/20 19:18 Nasal Screen MRSA (PCR) Negative (Negative) 11/20/20 Unknown Urine Opiates Screen Negative 11/19/20 19:18 Urine Methadone Screen Negative 11/19/20 19:18 Ur Barbiturates Screen Negative 11/19/20 19:18 Ur Phencyclidine Scrn Negative 11/19/20 19:18 Ur Amphetamines Screen Negative 11/19/20 19:18 U Benzodiazepines Scrn Negative 11/19/20 19:18 Urine Cocaine Screen Negative 11/19/20 19:18 U Marijuana (THC) Screen Negative 11/19/20 19:18 Drugs of Abuse Note Disclamer 11/19/20 19:18 Viramontes/IV: Voiding Method Condom Catheter Active Medications - Current Medications Current Medications: Generic Name Dose Route Start Last Admin Trade Name Freq PRN Reason Stop Dose Admin Acetaminophen 650 mg 11/20/20 14:00 11/26/20 21:56 Acetaminophen 325 Mg Tab PO 650 mg Q6H PRN Administration Pain, Mild (1-3) Albuterol 2.5 mg 11/21/20 09:51 11/28/20 10:50 Albuterol 2.5 Mg/3 Ml Nebu IH 2.5 mg TIDRT JANNETH Administration Enoxaparin Sodium 40 mg 11/19/20 19:00 11/28/20 09:41 Enoxaparin 40 Mg/0.4 Ml Inj SUB-Q 40 mg QDAY JANNETH Administration Folic Acid 1 mg 11/20/20 10:00 11/28/20 09:41 Folic Acid 1 Mg Tab PO 1 mg QDAY JANNETH Administration Haloperidol Lactate 5 mg 11/19/20 20:23 11/23/20 21:56 Haloperidol Lactate 5 Mg/1 Ml Inj IV 5 mg Q1HR PRN Administration Unrespon. to mult. doses BZD's Hydralazine HCl 10 mg 11/19/20 18:18 Hydralazine 20 Mg/1 Ml Inj IV Q4HR PRN Hypertension Dextrose/Sodium Chloride 1,000 mls @ 150 mls/hr 11/25/20 09:00 11/28/20 06:39 D5/0.45ns IV 150 mls/hr DIRECT JANNETH Administration Lorazepam 2 mg 11/27/20 12:30 11/28/20 12:21 Lorazepam 2 Mg/Ml Vial IV 2 mg Q4H PRN Administration Agitation Losartan Potassium 100 mg 11/20/20 10:00 11/28/20 09:41 Losartan 50 Mg Tab PO 100 mg QDAY JANNETH Administration Metoprolol Tartrate 12.5 mg 11/28/20 22:00 Metoprolol Tartrate 25 Mg Tab PO BID JANNETH Morphine Sulfate 2 mg 11/20/20 10:30 11/28/20 06:35 Morphine 2 Mg/1 Ml Inj IV 2 mg Q6H PRN Administration Pain, Moderate (4-6) Naloxone HCl 0.1 mg 11/19/20 18:11 Naloxone 0.4 Mg/1 Ml Inj IV Q2MIN PRN Res Rate </= 8 or 02 SAT < 92% Ondansetron HCl 4 mg 11/19/20 18:11 11/27/20 16:40 Ondansetron 4 Mg/2 Ml Inj IV 4 mg Q8H PRN Administration Nausea And Vomiting Pantoprazole Sodium 40 mg 11/21/20 16:30 11/28/20 09:41 Pantoprazole 40 Mg Tab PO 40 mg BIDAC JANNETH Administration Sodium Chloride 10 ml 11/19/20 22:00 11/28/20 09:42 Sodium Chloride 0.9% 10 Ml Flush Syringe IV 10 ml BID JANNETH Administration Sodium Chloride 10 ml 11/19/20 19:11 11/28/20 06:39 Sodium Chloride 0.9% 10 Ml Flush Syringe IV 10 ml PRN PRN Administration LINE FLUSH Nutrition/Malnutrition Assess - Dietary Evaluation Nutrition/Malnutrition Findings: Nutrition Notes Start: 11/20/20 12 :00 Freq: Status: Active Protocol: Document 11/27/20 14:22 (Rec: 11/27/20 14:26 [id number]) Nutrition Notes Initial or Follow up Reassessment Current Diagnosis Sepsis,Hypertension, Hyperlipidemia Other Pertinent Diagnosis Acute alcoholic pancreatitis, EtOH withdrawal delirium, ARF, GERD Current Diet Regular Labs/Tests Na 151 Phos 1.8 Pertinent Medications D% 1/2 NS at 150 ml/hr Height 5 ft 10 in Weight 69.3 kg Floral Body Weight (kg) 75.45 BMI 21.9 Weight Status Appropriate Subjective/Other Information FU for intakes. Pt drank 100% of one ONS at time of visit. Pt did not eat breakfast. Multiple ONS still in room. Pt appears more alert today. Percent of energy/protein needs met: 19%/24% Burn Absent Trauma Absent Current % PO Poor (25-49%) Minimum of two criteria No #2 Nutrition Diagnosis Inadequate oral intake As Evidenced by Signs and Symptoms pt drank Ensure Diagnosis Progress(for reassessment Improved documentation) Is patient on ventilator? No Is Patient Ambulatory and/or Out of Bed No REE-([facility]-confined to bed) 1816.032 Calculation Used for Recommendations Shiva Dunham Additional Notes Pro needs 1-1.2g/k-98g/ day Fluid needs 1ml/kcal Nutrition Intervention Change Diet Order: Continue regular diet Add Supplement/Snack (indicate name/kcal D/c /protein ) Goal #1 Meet 75% of energy and protein needs Follow-Up By: 11/29/20 Additional Comments FU for intakes and need for more ONS
--- NOTE | 2020-11-28 14:23 | XRay Report ---
XR chest 1V ap INDICATION / CLINICAL INFORMATION: Shortness of breath. COMPARISON: 11/19/2020 FINDINGS: SUPPORT DEVICES: None. HEART /PULMONARY VASCULATURE: No significant abnormality. LUNGS / PLEURA: There are developing airspace opacities within bilateral lung bases. Trace bibasilar pleural effusions are likely present. No pneumothorax. ADDITIONAL FINDINGS: No significant additional findings. IMPRESSION: Interval development of trace bibasilar pleural effusions and bibasilar airspace disease, may reflect pneumonia or pulmonary edema. Signer Name: Angel Lara MD Signed: 11/28/2020 2:08 PM Workstation Name: [id number]
--- NOTE | 2020-11-28 16:05 | Progress Note ---
Assessment and Plan Assessment Hypernatremia Hypokalemia Acidosis Azotemia Leukocytosis Pancreatitis Gram negative UTI, s/p zosyn Alcohol withdrawal Recommendations Recheck ABG Switch to hypotonic IV bicarb Oral hydration Thiamine IM x 1 Hold antihypertensives Keep MAP>65 Avoid nephrotoxins [facility] protocol Subjective Date of service: 11/28/20 Principal diagnosis: EtOH dependence Interval history: Calm this morning. Objective - Exam Narrative Exam: General: No acute distress HEENT: Oral mucosa moist Neck: Supple, no JVD Chest: Clear to auscultation bilaterally Heart: RRR, S1 and S2, no pericardial rub Abdomen: Distended, tender to palpation Extremity: No peripheral cyanosis, edema Neurological: Alert, awake, no asterixis Dermatology: No skin rash Psych: Calm, cooperative Musculoskeletal: No joint effusion - Vital Signs Vital signs: Vital Signs - 12hr 11/28/20 11/28/20 11/28/20 07:42 09:37 09:41 Temperature 99.8 F H Pulse Rate 106 H 118 H 114 H Respiratory 16 Rate Blood Pressure 110/60 111/68 111/68 O2 Sat by Pulse 99 95 Oximetry 11/28/20 11/28/20 10:00 13:39 Temperature Pulse Rate 98 H 46 L Respiratory Rate Blood Pressure 115/60 O2 Sat by Pulse Oximetry - Lab 11/25/20 04:14 11/28/20 10:44 Most recent lab results ABG pH 7.453 (7.320-7.450) H 11/27/20 16:21 ABG O2 Saturation 92.3 (0-100) 11/27/20 16:21 Calcium 8.1 mg/dL (8.4-10.2) L 11/28/20 10:44 Phosphorus 1.80 mg/dL (2.5-4.5) L 11/27/20 05:30 Magnesium 2.00 mg/dL (1.7-2.3) 11/27/20 05:30 Medications & Allergies - Medications Allergies/Adverse Reactions: Allergies No Known Allergies Allergy (Verified 10/25/19 12:42) Home Medications: Home Medications Medication Instructions Recorded Confirmed Last Taken Type Folic Acid [Folvite] 1 mg PO QDAY #30 tablet 10/27/19 11/20/20 11/18/20 Rx Colchicine 0.6 mg PO TID 11/20/20 11/20/20 Unknown History Cyanocobalamin (Vitamin B-12) 100 mcg PO QDAY 11/20/20 11/20/20 11/18/20 History Hydrochlorothiazide 12.5 mg PO QDAY 11/20/20 11/20/20 11/18/20 History Lipase/Protease/Amylase [Karen Au 1 cap PO TID 11/20/20 11/20/20 11/18/20 History 6,000 Units] Losartan Potassium 100 mg PO QDAY 11/20/20 11/20/20 11/18/20 History Meloxicam 15 mg PO DAILY 11/20/20 11/20/20 11/18/20 History Pantoprazole [Protonix TAB] 40 mg PO DAILY 11/20/20 11/20/20 11/18/20 History Potassium Gluconate [Potassium] 595 mg PO QDAY 11/20/20 11/20/20 11/18/20 History allopurinoL [Zyloprim] 300 mg PO DAILY 11/20/20 11/20/20 11/18/20 History amLODIPine 10 mg PO DAILY 11/20/20 11/20/20 11/18/20 11:00 History Active Medications: Generic Name Dose Route Start Last Admin Trade Name Freq PRN Reason Stop Dose Admin Acetaminophen 650 mg 11/20/20 14:00 11/26/20 21:56 Acetaminophen 325 Mg Tab PO 650 mg Q6H PRN Administration Pain, Mild (1-3) Albuterol 2.5 mg 11/21/20 09:51 11/28/20 10:50 Albuterol 2.5 Mg/3 Ml Nebu IH 2.5 mg TIDRT JANNETH Administration Enoxaparin Sodium 40 mg 11/19/20 19:00 11/28/20 09:41 Enoxaparin 40 Mg/0.4 Ml Inj SUB-Q 40 mg QDAY JANNETH Administration Folic Acid 1 mg 11/20/20 10:00 11/28/20 09:41 Folic Acid 1 Mg Tab PO 1 mg QDAY JANNETH Administration Haloperidol Lactate 5 mg 11/19/20 20:23 11/23/20 21:56 Haloperidol Lactate 5 Mg/1 Ml Inj IV 5 mg Q1HR PRN Administration Unrespon. to mult. doses BZD's Hydralazine HCl 10 mg 11/19/20 18:18 Hydralazine 20 Mg/1 Ml Inj IV Q4HR PRN Hypertension Sodium Bicarbonate 100 meq/ 1,100 mls @ 150 mls/hr 11/28/20 17:00 Sterile Water IV 12/03/20 00:19 DIRECT JANNETH Lorazepam 2 mg 11/27/20 12:30 11/28/20 12:21 Lorazepam 2 Mg/Ml Vial IV 2 mg Q4H PRN Administration Agitation Losartan Potassium 100 mg 11/20/20 10:00 11/28/20 09:41 Losartan 50 Mg Tab PO 100 mg QDAY JANNETH Administration Metoprolol Tartrate 12.5 mg 11/28/20 22:00 Metoprolol Tartrate 25 Mg Tab PO BID JANNETH Morphine Sulfate 2 mg 11/20/20 10:30 11/28/20 06:35 Morphine 2 Mg/1 Ml Inj IV 2 mg Q6H PRN Administration Pain, Moderate (4-6) Naloxone HCl 0.1 mg 11/19/20 18:11 Naloxone 0.4 Mg/1 Ml Inj IV Q2MIN PRN Res Rate </= 8 or 02 SAT < 92% Ondansetron HCl 4 mg 11/19/20 18:11 11/27/20 16:40 Ondansetron 4 Mg/2 Ml Inj IV 4 mg Q8H PRN Administration Nausea And Vomiting Pantoprazole Sodium 40 mg 11/21/20 16:30 11/28/20 09:41 Pantoprazole 40 Mg Tab PO 40 mg BIDAC JANNETH Administration Sodium Chloride 10 ml 11/19/20 22:00 11/28/20 09:42 Sodium Chloride 0.9% 10 Ml Flush Syringe IV 10 ml BID JANNETH Administration Sodium Chloride 10 ml 11/19/20 19:11 11/28/20 06:39 Sodium Chloride 0.9% 10 Ml Flush Syringe IV 10 ml PRN PRN Administration LINE FLUSH
[2020-11-28] MEDS ORDERED: THIAMINE 200 MG/2 ML VIAL IM SCH (16:30)
[2020-11-28] MEDS ORDERED: SODIUM BICARBONATE 100 MEQ in WATER FOR INJECTION (PF) 1,000 ML IV SCH (17:00)
[2020-11-28] MEDS: METOPROLOL TARTRATE 25 MG TAB PO SCH (21:26)
[2020-11-28] MEDS: CEFEPIME/NS 2 GM/100 ML 2 GM/100 ML BAG IV SCH (21:50)
[2020-11-29] MEDS: CEFEPIME/NS 2 GM/100 ML 2 GM/100 ML BAG IV SCH (05:46)
[2020-11-29] MEDS: ALBUTEROL 2.5 MG/3 ML NEBU IH SCH ×3 (08:00→19:49)
[2020-11-29] MEDS ORDERED: FUROSEMIDE 40 MG/4 ML INJ IV SCH (10:00)
--- NOTE | 2020-11-29 11:07 | Progress Note ---
Assessment and Plan Assessment and plan: --Alcohol withdrawal delirium Current Visit: No Status: Acute Symptoms significantly improved Patient is more alert and awake PT OT evaluated recommended Subacute/SNF placement --Acute /chronic pancreatitis/alcohol related Current Visit: No Status: Acute Symptoms significantly improved Currently on regular diet Antiemetics, IV Protonix --Acute kidney injury; Current Visit: Yes Status: Acute Vasomotor nephropathy, resolved --History of chronic ETOH abuse Current Visit: No Status: Chronic Education given to the patient advised to quit Also advised to seek alcohol rehabilitation And alcohol Anonymous support group When medically stable --Hypertension Current Visit: No Status: Chronic Moderate control continue current antihypertensives to 2 or 3 depending on --Ongoing tobacco use Current Visit: No Status: Chronic Smoking cessation counseling Strongly advised nicotine patch. --Sepsis/secondary to UTI/pancreatitis Current Visit: No Status: Acute Leukocytosis, tachycardia, lactic acidosis and UTI/pancreatitis Empiric antibiotics, follow cultures, supportive care, IV fluids Urine cultures positive for gram-negative rods Continue Zosyn follow culture sensitivities --UTI/E. coli Current Visit: No Status: Acute Completed Zosyn, supportive care --Severe protein calorie malnutrition Current Visit: No Status: Acute Hypoalbuminemia , albumin 2.8 Nutrition supplements, nutrition consult and supportive care -- Metabolic acidosis Current Visit: Yes Status: Acute Plan to address problem: Secondary to uremia as well as chronic pancreatitis treat underlying etiology. --DVT prophylaxis Current Visit: Yes Status: Acute Heparin subcu We will closely monitor the patient and adjust management as needed Plan of care reviewed with the patient and his nurse Patient is severely agitated confused on CIWA protocol, Patient is restraint for safety Brief history and hospital course; 60-year-old male patient was admitted with alcohol withdrawal symptoms On CIWA protocol patient continues to be agitated confused, and hallucinating Restrained for safety, sepsis secondary to UTI 11/20/2020; patient feels slightly better, no significant withdrawal symptoms Patient is on CIWA protocol, stable to be transferred out of [facility] to medical floor 11/21/2020; patient has severe agitation tremulousness, patient is on CIWA protocol Closely monitor withdrawal symptoms, adjust the medications as needed Advance diet to regular as tolerated. I called patient's mother and also patient's daughter Ms. Huong Hua at [phone] 11/22/2020; Patient continues to be agitated confused mumbling, On CIWA protocol, restraint for safety. E. coli UTI on Zosyn Called again patient's daughter next of kin Ms. Huong Hua at [phone][number obtained from case manager specialist Gilda] Did not picking crew supervisor the phone I left a voicemail again today to discuss about Mr. Parada's condition and treatment plan 11/23/2020 Patient continues to be agitated Resumed service 11/26/2020; Patient still has mild alcohol withdrawal symptoms On CIWA protocol More alert and awake responding appropriately Restraint for safety 11/27/2020; Patient is off CIWA protocol and restraints PT OT evaluation requested PT recommend subacute rehab DC planning per case management 11/28/2020; today patient has some mild shortness of breath and wheezing Tachycardia heart rate in 100 -110 , alert awake oriented x3 Possible fluid overload, give 1 dose of Lasix IV, checks chest x-ray Supportive care 11/29/2020; patient is more alert and awake, no shortness of breath No tremulousness or agitation, vital signs reviewed Awaiting placement to subacute/SNF DC planning per case management History Interval history: I have seen and examined the patient at the bedside Patient's chart and medications reviewed Patient is alert awake oriented not in acute distress Vital signs reviewed Awaiting SNF placement Hospitalist Physical - Constitutional Vitals: Temp Pulse Resp BP Pulse Ox 99.3 F 101 H 19 102/67 96 11/29/20 08:28 11/29/20 08:28 11/29/20 08:28 11/29/20 08:28 11/29/20 08:35 General appearance: Present: no acute distress, well-nourished, other (No agitation no tremulousness) - EENT Eyes: Present: PERRL, EOM intact - Neck Neck: Present: supple, normal ROM - Respiratory Respiratory effort: normal Respiratory: bilateral: diminished, negative: rales, rhonchi, wheezing - Cardiovascular Rhythm: regular Heart Sounds: Present: S1 & S2 - Extremities Extremities: no ischemia, No edema - Abdominal General gastrointestinal: soft, non-tender, non-distended, normal bowel sounds - Integumentary Integumentary: Present: clear, warm - Psychiatric Psychiatric: appropriate mood/affect, cooperative - Neurologic Neurologic: CNII-XII intact, moves all extremities HEART Score - HEART Score Troponin: Troponin T < 0.010 ng/mL (0.00-0.029) 11/19/20 22:51 Results - Labs CBC & Chem 7: 11/25/20 04:14 11/28/20 10:44 Labs: Laboratory Last Values WBC 14.9 K/mm3 (4.5-11.0) H 11/25/20 04:14 RBC 3.61 M/mm3 (3.65-5.03) L 11/25/20 04:14 Hgb 9.3 gm/dl (11.8-15.2) L 11/25/20 04:14 Hct 28.1 % (35.5-45.6) L 11/25/20 04:14 MCV 78 fl (84-94) L 11/25/20 04:14 MCH 26 pg (28-32) L 11/25/20 04:14 MCHC 33 % (32-34) 11/25/20 04:14 RDW 18.1 % (13.2-15.2) H 11/25/20 04:14 Plt Count 375 K/mm3 (140-440) 11/25/20 04:14 Lymph % (Auto) 10.1 % (13.4-35.0) L 11/25/20 04:14 [place] % (Auto) 6.5 % (0.0-7.3) 11/25/20 04:14 Eos % (Auto) 0.8 % (0.0-4.3) 11/25/20 04:14 Baso % (Auto) 0.1 % (0.0-1.8) 11/25/20 04:14 Lymph # (Auto) 1.5 K/mm3 (1.2-5.4) 11/25/20 04:14 [place] # (Auto) 1.0 K/mm3 (0.0-0.8) H 11/25/20 04:14 Eos # (Auto) 0.1 K/mm3 (0.0-0.4) 11/25/20 04:14 Baso # (Auto) 0.0 K/mm3 (0.0-0.1) 11/25/20 04:14 Add Manual Diff Complete 11/23/20 04:54 Total Counted 200 11/23/20 04:54 Seg Neutrophils % 82.5 % (40.0-70.0) H 11/25/20 04:14 Seg Neuts % (Manual) 95.5 % (40.0-70.0) H 11/23/20 04:54 Band Neutrophils % 0.5 % 11/23/20 04:54 Lymphocytes % (Manual) 3.0 % (13.4-35.0) L 11/23/20 04:54 Monocytes % (Manual) 1.0 % (0.0-7.3) 11/23/20 04:54 Eosinophils % (Manual) 1.0 % (0.0-4.3) 11/22/20 05:12 Nucleated RBC % Not Reportable 11/23/20 04:54 Seg Neutrophils # 12.3 K/mm3 (1.8-7.7) H 11/25/20 04:14 Seg Neutrophils # Man 19.4 K/mm3 (1.8-7.7) H 11/23/20 04:54 Band Neutrophils # 0.1 K/mm3 11/23/20 04:54 Lymphocytes # (Manual) 0.6 K/mm3 (1.2-5.4) L 11/23/20 04:54 Abs React Lymphs (Man) 0.0 K/mm3 11/23/20 04:54 Monocytes # (Manual) 0.2 K/mm3 (0.0-0.8) 11/23/20 04:54 Eosinophils # (Manual) 0.0 K/mm3 (0.0-0.4) 11/23/20 04:54 Basophils # (Manual) 0.0 K/mm3 (0.0-0.1) 11/23/20 04:54 Metamyelocytes # 0.0 K/mm3 11/23/20 04:54 Myelocytes # 0.0 K/mm3 11/23/20 04:54 Promyelocytes # 0.0 K/mm3 11/23/20 04:54 Blast Cells # 0.0 K/mm3 11/23/20 04:54 WBC Morphology Not Reportable 11/23/20 04:54 Hypersegmented Neuts Not Reportable 11/23/20 04:54 Hyposegmented Neuts Not Reportable 11/23/20 04:54 Hypogranular Neuts Not Reportable 11/23/20 04:54 Smudge Cells Not Reportable 11/23/20 04:54 Toxic Granulation Not Reportable 11/23/20 04:54 Toxic Vacuolation Not Reportable 11/23/20 04:54 Dohle Bodies Not Reportable 11/23/20 04:54 Pelger-Huet Anomaly Not Reportable 11/23/20 04:54 Aiden Rods Not Reportable 11/23/20 04:54 Platelet Estimate Consistent w auto 11/23/20 04:54 Clumped Platelets Not Reportable 11/23/20 04:54 Plt Clumps, EDTA Not Reportable 11/23/20 04:54 Large Platelets Not Reportable 11/23/20 04:54 Giant Platelets Not Reportable 11/23/20 04:54 Platelet Satelliting Not Reportable 11/23/20 04:54 Plt Morphology Comment Not Reportable 11/23/20 04:54 RBC Morphology Not Reportable 11/23/20 04:54 Dimorphic RBCs Not Reportable 11/23/20 04:54 Polychromasia Not Reportable 11/23/20 04:54 Hypochromasia Not Reportable 11/23/20 04:54 Poikilocytosis Not Reportable 11/23/20 04:54 Anisocytosis 1+ 11/23/20 04:54 Microcytosis Not Reportable 11/23/20 04:54 Macrocytosis Not Reportable 11/23/20 04:54 Spherocytes Not Reportable 11/23/20 04:54 Pappenheimer Bodies Not Reportable 11/23/20 04:54 Sickle Cells Not Reportable 11/23/20 04:54 Target Cells 2+ 11/23/20 04:54 Tear Drop Cells Not Reportable 11/23/20 04:54 Ovalocytes Not Reportable 11/23/20 04:54 Helmet Cells Not Reportable 11/23/20 04:54 [place] Bodies Not Reportable 11/23/20 04:54 [place] Rings Not Reportable 11/23/20 04:54 Stevie Cells Not Reportable 11/23/20 04:54 Bite Cells Not Reportable 11/23/20 04:54 Crenated Cell Not Reportable 11/23/20 04:54 Elliptocytes Not Reportable 11/23/20 04:54 Acanthocytes (Spur) Not Reportable 11/23/20 04:54 Rouleaux Not Reportable 11/23/20 04:54 Hemoglobin C Crystals Not Reportable 11/23/20 04:54 Schistocytes Not Reportable 11/23/20 04:54 Malaria parasites Not Reportable 11/23/20 04:54 Florin Bodies Not Reportable 11/23/20 04:54 Hem Pathologist Commnt No 11/23/20 04:54 PT 16.1 Sec. (12.2-14.9) H 11/19/20 16:44 INR 1.24 (0.87-1.13) H 11/19/20 16:44 APTT 34.3 Sec. (24.2-36.6) 11/19/20 16:44 D-Dimer 1767.06 ng/mlDDU (0-234) H 11/19/20 16:44 ABG pH 7.454 (7.320-7.450) H 11/28/20 17:47 POC ABG pCO2 25.8 mmHg (32.0-48.0) L 11/28/20 17:47 POC ABG pO2 65.5 mmHg (83-108) L 11/28/20 17:47 POC ABG HCO3 17.7 11/28/20 17:47 ABG O2 Saturation 94.3 (0-100) 11/28/20 17:47 POC ABG Base Excess -5.5 11/28/20 17:47 ABG Hemoglobin 7.0 (12.0-17.5) L 11/28/20 17:47 ABG Oxyhemoglobin 92.2 (94-98) L 11/28/20 17:47 ABG Methemoglobin 0.3 (0.0-1.5) 11/28/20 17:47 ABG Sodium 143.6 mmol/L (136.0-145.0) 11/28/20 17:47 ABG Potassium 3.6 mmol/L (3.40-4.50) 11/28/20 17:47 ABG Chloride 117.0 mmol/L (98-107) H 11/28/20 17:47 ABG Glucose 104 mg/dL (65-95) H 11/28/20 17:47 Carboxyhemoglobin 1.9 (0.5-1.5) H 11/28/20 17:47 FiO2 % 21.0 11/28/20 17:47 Sodium 147 mmol/L (137-145) H 11/28/20 10:44 Potassium 4.2 mmol/L (3.6-5.0) 11/28/20 10:44 Chloride 118.5 mmol/L (98-107) H 11/28/20 10:44 Carbon Dioxide 16 mmol/L (22-30) L 11/28/20 10:44 Anion Gap 17 mmol/L 11/28/20 10:44 BUN 18 mg/dL (9-20) 11/28/20 10:44 Creatinine 0.9 mg/dL (0.8-1.3) 11/28/20 10:44 Estimated GFR > 60 ml/min 11/28/20 10:44 BUN/Creatinine Ratio 20 % 11/28/20 10:44 Glucose 125 mg/dL (75-100) H 11/28/20 10:44 POC Glucose 103 mg/dL (70-105) 11/29/20 06:54 Lactic Acid 3.10 mmol/L (0.7-2.0) H* 11/19/20 18:28 Calcium 8.1 mg/dL (8.4-10.2) L 11/28/20 10:44 Phosphorus 1.80 mg/dL (2.5-4.5) L 11/27/20 05:30 Magnesium 2.00 mg/dL (1.7-2.3) 11/27/20 05:30 Total Bilirubin 1.70 mg/dL (0.1-1.2) H 11/25/20 04:14 Direct Bilirubin 0.2 mg/dL (0-0.2) 11/19/20 16:44 Indirect Bilirubin 0.3 mg/dL 11/19/20 16:44 AST 25 units/L (5-40) 11/25/20 04:14 ALT 32 units/L (7-56) 11/25/20 04:14 Alkaline Phosphatase 210 units/L (35-129) H 11/25/20 04:14 Total Creatine Kinase 26 units/L (55-170) L 11/19/20 16:44 CK-MB (CK-2) < 1.0 ng/mL (0.0-4.0) 11/19/20 16:44 CK-MB (CK-2) Rel Index 3.8 (0-4) 11/19/20 16:44 Troponin T < 0.010 ng/mL (0.00-0.029) 11/19/20 22:51 NT-Pro-B Natriuret Pep 454.0 pg/mL (0-900) 11/19/20 16:44 Total Protein 6.5 g/dL (6.3-8.2) 11/25/20 04:14 Albumin 2.5 g/dL (3.9-5) L 11/25/20 04:14 Albumin/Globulin Ratio 0.6 % 11/25/20 04:14 Lipase 67 units/L (13-60) H 11/20/20 07:58 Arterial Blood Glucose 104 mg/dL (65-95) H 11/28/20 17:47 Arterial Blood Ionized Calcium 4.5 mg/dL (4.6-5.3) L 11/28/20 17:47 Urine Color Yellow (Yellow) 11/19/20 19:18 Urine Turbidity Slightly-cloudy (Clear) 11/19/20 19:18 Urine pH 5.0 (5.0-7.0) 11/19/20 19:18 Ur Specific [place] 1.023 (1.003-1.030) 11/19/20 19:18 Urine Protein <15 mg/dl mg/dL (Negative) 11/19/20 19:18 Urine Glucose (UA) Neg mg/dL (Negative) 11/19/20 19:18 Urine Ketones Neg mg/dL (Negative) 11/19/20 19:18 Urine Blood Neg (Negative) 11/19/20 19:18 Urine Nitrite Neg (Negative) 11/19/20 19:18 Urine Bilirubin Neg (Negative) 11/19/20 19:18 Urine Urobilinogen < 2.0 mg/dL (<2.0) 11/19/20 19:18 Ur Leukocyte Esterase Mod (Negative) 11/19/20 19:18 Urine WBC (Auto) 33.0 /HPF (0.0-6.0) H 11/19/20 19:18 Urine RBC (Auto) 4.0 /HPF (0.0-6.0) 11/19/20 19:18 U Epithel Cells (Auto) 6.0 /HPF (0-13.0) 11/19/20 19:18 Urine Bacteria (Auto) 1+ /HPF (Negative) 11/19/20 19:18 Hyaline Casts 1 /LPF 11/19/20 19:18 Urine Mucus Few /HPF 11/19/20 19:18 Nasal Screen MRSA (PCR) Negative (Negative) 11/20/20 Unknown Urine Opiates Screen Negative 11/19/20 19:18 Urine Methadone Screen Negative 11/19/20 19:18 Ur Barbiturates Screen Negative 11/19/20 19:18 Ur Phencyclidine Scrn Negative 11/19/20 19:18 Ur Amphetamines Screen Negative 11/19/20 19:18 U Benzodiazepines Scrn Negative 11/19/20 19:18 Urine Cocaine Screen Negative 11/19/20 19:18 U Marijuana (THC) Screen Negative 11/19/20 19:18 Drugs of Abuse Note Disclamer 11/19/20 19:18 Coronavirus (PCR) Negative (Negative) 11/27/20 08:45 Viramontes/IV: Voiding Method Condom Catheter Active Medications - Current Medications Current Medications: Generic Name Dose Route Start Last Admin Trade Name Freq PRN Reason Stop Dose Admin Acetaminophen 650 mg 11/20/20 14:00 11/26/20 21:56 Acetaminophen 325 Mg Tab PO 650 mg Q6H PRN Administration Pain, Mild (1-3) Albuterol 2.5 mg 11/21/20 09:51 11/29/20 08:00 Albuterol 2.5 Mg/3 Ml Nebu IH 2.5 mg TIDRT JANNETH Administration Enoxaparin Sodium 40 mg 11/19/20 19:00 11/28/20 09:41 Enoxaparin 40 Mg/0.4 Ml Inj SUB-Q 40 mg QDAY JANNETH Administration Folic Acid 1 mg 11/20/20 10:00 11/28/20 09:41 Folic Acid 1 Mg Tab PO 1 mg QDAY JANNETH Administration Furosemide 40 mg 11/29/20 10:00 Furosemide 40 Mg/4 Ml Inj IV QDAY JANNETH Haloperidol Lactate 5 mg 11/19/20 20:23 11/23/20 21:56 Haloperidol Lactate 5 Mg/1 Ml Inj IV 5 mg Q1HR PRN Administration Unrespon. to mult. doses BZD's Hydralazine HCl 10 mg 11/19/20 18:18 Hydralazine 20 Mg/1 Ml Inj IV Q4HR PRN Hypertension Sodium Bicarbonate 100 meq/ 1,100 mls @ 150 mls/hr 11/28/20 17:00 Sterile Water IV 12/03/20 00:19 DIRECT JANNETH Lorazepam 2 mg 11/27/20 12:30 11/28/20 12:21 Lorazepam 2 Mg/Ml Vial IV 2 mg Q4H PRN Administration Agitation Losartan Potassium 100 mg 11/20/20 10:00 11/28/20 09:41 Losartan 50 Mg Tab PO 100 mg QDAY JANNETH Administration Metoprolol Tartrate 12.5 mg 11/28/20 22:00 11/28/20 21:26 Metoprolol Tartrate 25 Mg Tab PO 12.5 mg BID JANNETH Administration Morphine Sulfate 2 mg 11/20/20 10:30 11/28/20 06:35 Morphine 2 Mg/1 Ml Inj IV 2 mg Q6H PRN Administration Pain, Moderate (4-6) Naloxone HCl 0.1 mg 11/19/20 18:11 Naloxone 0.4 Mg/1 Ml Inj IV Q2MIN PRN Res Rate </= 8 or 02 SAT < 92% Ondansetron HCl 4 mg 11/19/20 18:11 11/27/20 16:40 Ondansetron 4 Mg/2 Ml Inj IV 4 mg Q8H PRN Administration Nausea And Vomiting Pantoprazole Sodium 40 mg 11/21/20 16:30 11/28/20 17:08 Pantoprazole 40 Mg Tab PO 40 mg BIDAC JANNETH Administration Sodium Chloride 10 ml 11/19/20 22:00 11/28/20 21:27 Sodium Chloride 0.9% 10 Ml Flush Syringe IV 10 ml BID JANNETH Administration Sodium Chloride 10 ml 11/19/20 19:11 11/28/20 06:39 Sodium Chloride 0.9% 10 Ml Flush Syringe IV 10 ml PRN PRN Administration LINE FLUSH Nutrition/Malnutrition Assess - Dietary Evaluation Nutrition/Malnutrition Findings: Nutrition Notes Start: 11/20/20 12:00 Freq: Status: Active Protocol: Document 11/27/20 14:22 STEPHANIE (Rec: 11/27/20 14:26 STEPHANIE [id number]) Nutrition Notes Initial or Follow up Reassessment Current Diagnosis Sepsis,Hypertension, Hyperlipidemia Other Pertinent Diagnosis Acute alcoholic pancreatitis, EtOH withdrawal delirium, ARF, GERD Current Diet Regular Labs/Tests Na 151 Phos 1.8 Pertinent Medications D% 1/2 NS at 150 ml/hr Height 5 ft 10 in Weight 69.3 kg [place] Body Weight (kg) 75.45 BMI 21.9 Weight Status Appropriate Subjective/Other Information FU for intakes. Pt drank 100% of one ONS at time of visit. Pt did not eat breakfast. Multiple ONS still in room. Pt appears more alert today. Percent of energy/protein needs met: 19%/24% Burn Absent Trauma Absent Current % PO Poor (25-49%) Minimum of two criteria No #2 Nutrition Diagnosis Inadequate oral intake As Evidenced by Signs and Symptoms pt drank Ensure Diagnosis Progress(for reassessment Improved documentation) Is patient on ventilator? No Is Patient Ambulatory and/or Out of Bed No REE-(Upson-St. Jeor-confined to bed) 1816.032 Calculation Used for Recommendations Upson-St Jeor Additional Notes Pro needs 1-1.2g/k-98g/ day Fluid needs 1ml/kcal Nutrition Intervention Change Diet Order: Continue regular diet Add Supplement/Snack (indicate name/kcal D/c /protein ) Goal #1 Meet 75% of energy and protein needs Follow-Up By: 11/29/20 Additional Comments FU for intakes and need for more ONS
[2020-11-29] MEDS: FOLIC ACID 1 MG TAB PO SCH (12:47)
[2020-11-29] MEDS: PANTOPRAZOLE 40 MG TAB PO SCH ×2 (12:47→17:46)
[2020-11-29] MEDS: LOSARTAN 50 MG TAB PO SCH (12:49)
[2020-11-29] MEDS: METOPROLOL TARTRATE 25 MG TAB PO SCH ×2 (12:55→21:24)
[2020-11-29] MEDS: ENOXAPARIN 40 MG/0.4 ML INJ SUB-Q SCH (12:59)
[2020-11-29 16:00] LABS: BUN/Creatinine Ratio 18; Blood Urea Nitrogen 16 mg/dL (9-20); Calcium 8.1 mg/dL (8.4-10.2); Hemolysis Index 5
[2020-11-29] MEDS: ACETAMINOPHEN 325 MG TAB PO PRN ×2 (17:45→23:24)
--- NOTE | 2020-11-29 18:51 | Progress Note ---
Assessment and Plan Assessment Hypernatremia Hypokalemia Acidosis Azotemia Leukocytosis Pancreatitis Gram negative UTI, s/p zosyn Alcohol withdrawal Recommendations Stop IVF Oral hydration Start sodium bicarb tabs Thiamine IM x 1 Hold antihypertensives Keep MAP>65 Avoid nephrotoxins [place] protocol Will follow peripherally and see prn Subjective Date of service: 11/29/20 Principal diagnosis: EtOH dependence Interval history: Mentation improving. More cooperative. Objective - Exam Narrative Exam: General: No acute distress HEENT: Oral mucosa moist Neck: Supple, no JVD Chest: Decreased bibasilar breath sounds Heart: RRR, S1 and S2, no pericardial rub Abdomen: Distended, tender to palpation Extremity: No peripheral cyanosis, edema Neurological: Alert, awake, no asterixis Dermatology: No skin rash Psych: Calm, cooperative Musculoskeletal: No joint effusion - Vital Signs Vital signs: Vital Signs - 12hr 11/29/20 11/29/20 11/29/20 08:00 08:19 08:28 Temperature 99.3 F Pulse Rate 101 H Pulse Rate [ 105 H Anterior Bilateral] Respiratory 19 Rate Respiratory 48 H Rate [Anterior Bilateral] Blood Pressure 102/67 O2 Sat by Pulse 95 99 Oximetry 11/29/20 11/29/20 11/29/20 08:35 10:00 12:48 Temperature Pulse Rate 111 H Pulse Rate [ Anterior Bilateral] Respiratory 38 H Rate Respiratory Rate [Anterior Bilateral] Blood Pressure 130/61 O2 Sat by Pulse 96 99 99 Oximetry 11/29/20 11/29/20 15:00 16:45 Temperature 98.2 F Pulse Rate 106 H Pulse Rate [ 110 H Anterior Bilateral] Respiratory 19 Rate Respiratory 28 H Rate [Anterior Bilateral] Blood Pressure 118/65 O2 Sat by Pulse 99 Oximetry - Lab 11/25/20 04:14 11/29/20 15:16 Most recent lab results ABG pH 7.454 (7.320-7.450) H 11/28/20 17:47 ABG O2 Saturation 94.3 (0-100) 11/28/20 17:47 Calcium 8.1 mg/dL (8.4-10.2) L 11/29/20 15:16 Phosphorus 1.80 mg/dL (2.5-4.5) L 11/27/20 05:30 Magnesium 2.00 mg/dL (1.7-2.3) 11/27/20 05:30 Medications & Allergies - Medications Allergies/Adverse Reactions: Allergies No Known Allergies Allergy (Verified 10/25/19 12:42) Home Medications: Home Medications Medication Instructions Recorded Confirmed Last Taken Type Folic Acid [Folvite] 1 mg PO QDAY #30 tablet 10/27/19 11/20/20 11/18/20 Rx Colchicine 0.6 mg PO TID 11/20/20 11/20/20 Unknown History Cyanocobalamin (Vitamin B-12) 100 mcg PO QDAY 11/20/20 11/20/20 11/18/20 History Hydrochlorothiazide 12.5 mg PO QDAY 11/20/20 11/20/20 11/18/20 History Lipase/Protease/Amylase [Karen Dr 1 cap PO TID 11/20/20 11/20/20 11/18/20 History 6,000 Units] Losartan Potassium 100 mg PO QDAY 11/20/20 11/20/20 11/18/20 History Meloxicam 15 mg PO DAILY 11/20/20 11/20/20 11/18/20 History Pantoprazole [Protonix TAB] 40 mg PO DAILY 11/20/20 11/20/20 11/18/20 History Potassium Gluconate [Potassium] 595 mg PO QDAY 11/20/20 11/20/20 11/18/20 History allopurinoL [Zyloprim] 300 mg PO DAILY 11/20/20 11/20/20 11/18/20 History amLODIPine 10 mg PO DAILY 11/20/20 11/20/20 11/18/20 11:00 History Active Medications: Generic Name Dose Route Start Last Admin Trade Name Chasq PRN Reason Stop Dose Admin Acetaminophen 650 mg 11/20/20 14:00 11/29/20 17:45 Acetaminophen 325 Mg Tab PO 650 mg Q6H PRN Administration Pain, Mild (1-3) Albuterol 2.5 mg 11/21/20 09:51 11/29/20 14:59 Albuterol 2.5 Mg/3 Ml Nebu IH 2.5 mg TIDRT JANNETH Administration Enoxaparin Sodium 40 mg 11/19/20 19:00 11/29/20 12:59 Enoxaparin 40 Mg/0.4 Ml Inj SUB-Q 40 mg QDAY JANNETH Administration Folic Acid 1 mg 11/20/20 10:00 11/29/20 12:47 Folic Acid 1 Mg Tab PO 1 mg QDAY JANNETH Administration Furosemide 20 mg 11/30/20 10:00 Furosemide 20 Mg Tab PO QDAY JANNETH Haloperidol Lactate 5 mg 11/19/20 20:23 11/23/20 21:56 Haloperidol Lactate 5 Mg/1 Ml Inj IV 5 mg Q1HR PRN Administration Unrespon. to mult. doses BZD's Hydralazine HCl 10 mg 11/19/20 18:18 Hydralazine 20 Mg/1 Ml Inj IV Q4HR PRN Hypertension Sodium Bicarbonate 100 meq/ 1,100 mls @ 150 mls/hr 11/28/20 17:00 Sterile Water IV 12/03/20 00:19 DIRECT JANNETH Lorazepam 2 mg 11/27/20 12:30 11/28/20 12:21 Lorazepam 2 Mg/Ml Vial IV 2 mg Q4H PRN Administration Agitation Losartan Potassium 100 mg 11/20/20 10:00 11/29/20 12:49 Losartan 50 Mg Tab PO 100 mg QDAY JANNETH Administration Metoprolol Tartrate 12.5 mg 11/28/20 22:00 11/29/20 12:55 Metoprolol Tartrate 25 Mg Tab PO 12.5 mg BID JANNETH Administration Morphine Sulfate 2 mg 11/20/20 10:30 11/28/20 06:35 Morphine 2 Mg/1 Ml Inj IV 2 mg Q6H PRN Administration Pain, Moderate (4-6) Naloxone HCl 0.1 mg 11/19/20 18:11 Naloxone 0.4 Mg/1 Ml Inj IV Q2MIN PRN Res Rate </= 8 or 02 SAT < 92% Ondansetron HCl 4 mg 11/19/20 18:11 11/27/20 16:40 Ondansetron 4 Mg/2 Ml Inj IV 4 mg Q8H PRN Administration Nausea And Vomiting Pantoprazole Sodium 40 mg 11/21/20 16:30 11/29/20 17:46 Pantoprazole 40 Mg Tab PO 40 mg BIDAC JANNETH Administration Sodium Bicarbonate 1,300 mg 11/29/20 20:00 Sodium Bicarbonate 650 Mg Tab PO TID JANNETH Sodium Chloride 10 ml 11/19/20 22:00 11/29/20 12:50 Sodium Chloride 0.9% 10 Ml Flush Syringe IV 10 ml BID JANNETH Administration Sodium Chloride 10 ml 11/19/20 19:11 11/28/20 06:39 Sodium Chloride 0.9% 10 Ml Flush Syringe IV 10 ml PRN PRN Administration LINE FLUSH
[2020-11-29] MEDS: MORPHINE 2 MG/1 ML INJ IV PRN (20:08)
[2020-11-29] MEDS: SODIUM BICARBONATE 650 MG TAB PO SCH (21:24)
[2020-11-30] MEDS: MORPHINE 2 MG/1 ML INJ IV PRN (02:38)
[2020-11-30] MEDS: ALBUTEROL 2.5 MG/3 ML NEBU IH SCH (07:40)
[2020-11-30 09:23] LABS: BUN/Creatinine Ratio 19; Blood Urea Nitrogen 21 mg/dL (9-20); Calcium 8.1 mg/dL (8.4-10.2); Hemolysis Index 15
[2020-11-30 09:36] LABS: Mean Corpuscular HGB Conc 34 % (32-34); Mean Corpuscular Volume 77 fl (84-94); Platelet Count 472 K/mm3 (140-440); Red Blood Count 2.57 M/mm3 (3.65-5.03); Red Cell Distribution Width 17.2 % (13.2-15.2)
[2020-11-30 09:40] LABS: Hematocrit 20.1 % (35.5-45.6); Hemoglobin 6.9 gm/dl (11.8-15.2)
--- NOTE | 2020-11-30 10:42 | Progress Note ---
Assessment and Plan Assessment and plan: --Anemia; Hb today 6.9 Current Visit: No Status: Acute No external evidence of bleeding Check stool for occult blood Repeat H&H 6.9 Hb, transfuse 1 unit PRBC Closely monitor --Hypophosphatemia/hypokalemia; Current Visit: No Status: Acute replenished with IV potassium phosphate Follow electrolytes --Alcohol withdrawal delirium Current Visit: No Status: Acute Symptoms significantly improved Patient is more alert and awake PT OT evaluated recommended Subacute/SNF placement --Acute /chronic pancreatitis/alcohol related Current Visit: No Status: Acute Symptoms significantly improved Currently on regular diet Antiemetics, IV Protonix --Acute kidney injury; Current Visit: Yes Status: Acute Vasomotor nephropathy, resolved --History of chronic ETOH abuse Current Visit: No Status: Chronic Education given to the patient advised to quit Also advised to seek alcohol rehabilitation And alcohol Anonymous support group When medically stable --Hypertension Current Visit: No Status: Chronic Moderate control continue current antihypertensives to 2 or 3 depending on --Ongoing tobacco use Current Visit: No Status: Chronic Smoking cessation counseling Strongly advised nicotine patch. --Sepsis/secondary to UTI/pancreatitis Current Visit: No Status: Acute Leukocytosis, tachycardia, lactic acidosis and UTI/pancreatitis Empiric antibiotics, follow cultures, supportive care, IV fluids Urine cultures positive for gram-negative rods Continue Zosyn follow culture sensitivities --UTI/E. coli Current Visit: No Status: Acute Completed Zosyn, supportive care --Severe protein calorie malnutrition Current Visit: No Status: Acute Hypoalbuminemia , albumin 2.8 Nutrition supplements, nutrition consult and supportive care -- Metabolic acidosis Current Visit: Yes Status: Acute Plan to address problem: Secondary to uremia as well as chronic pancreatitis treat underlying etiology. --DVT prophylaxis Current Visit: Yes Status: Acute Heparin subcu We will closely monitor the patient and adjust management as needed Plan of care reviewed with the patient and his nurse Patient is severely agitated confused on CIIA protocol, Patient is restraint for safety Brief history and hospital course; 60-year-old male patient was admitted with alcohol withdrawal symptoms On CIWA protocol patient continues to be agitated confused, and hallucinating Restrained for safety, sepsis secondary to UTI 11/20/2020; patient feels slightly better, no significant withdrawal symptoms Patient is on CIIA protocol, stable to be transferred out of [facility] to medical floor 11/21/2020; patient has severe agitation tremulousness, patient is on CIWA protocol Closely monitor withdrawal symptoms, adjust the medications as needed Advance diet to regular as tolerated. I called patient's mother and also patient's daughter Ms. Huong Hua at [phone] 11/22/2020; Patient continues to be agitated confused mumbling, On CIWA protocol, restraint for safety. E. coli UTI on Zosyn Called again patient's daughter next of kin Ms. Huong Hua at [phone][number obtained from case folder Antonieta Gilda] Did not bulk picker the phone I left a voicemail again today to discuss about Mr. Parada's condition and treatment plan 11/23/2020 Patient continues to be agitated Resumed service 11/26/2020; Patient still has mild alcohol withdrawal symptoms On CIWA protocol More alert and awake responding appropriately Restraint for safety 11/27/2020; Patient is off CIWA protocol and restraints PT OT evaluation requested PT recommend subacute rehab DC planning per case management 11/28/2020; today patient has some mild shortness of breath and wheezing Tachycardia heart rate in 100 -110 , alert awake oriented x3 Possible fluid overload, give 1 dose of Lasix IV, checks chest x-ray Supportive care 11/29/2020; patient is more alert and awake, no shortness of breath No tremulousness or agitation, vital signs reviewed Awaiting placement to subacute/SNF DC planning per case management 11/30/2020; Anemia patient's hemoglobin dropped to 6.9 Repeat H&H hemoglobin 6.9, type and cross transfuse 1 unit PRBC Stool for occult blood, GI consult if needed History Interval history: I have seen and examined the patient at the bedside Patient's chart and medications reviewed No new complaints Drop in H&H, No external evidence of bleeding Vital signs noted Hospitalist Physical - Constitutional Vitals: Temp Pulse Resp BP Pulse Ox 96.2 F L 96 H 18 83/45 96 11/30/20 04:00 11/30/20 04:00 11/30/20 04:00 11/30/20 04:00 11/30/20 07:40 General appearance: Present: no acute distress, well-nourished, other (No agitation no tremulousness) - EENT Eyes: Present: PERRL, EOM intact - Neck Neck: Present: supple, normal ROM - Respiratory Respiratory effort: normal Respiratory: bilateral: diminished, negative: rales, rhonchi, wheezing - Cardiovascular Rhythm: regular Heart Sounds: Present: S1 & S2 - Extremities Extremities: no ischemia, No edema - Abdominal General gastrointestinal: soft, non-tender, non-distended, normal bowel sounds - Integumentary Integumentary: Present: clear, warm - Psychiatric Psychiatric: appropriate mood/affect, cooperative - Neurologic Neurologic: CNII-XII intact, moves all extremities HEART Score - HEART Score Troponin: Troponin T < 0.010 ng/mL (0.00-0.029) 11/19/20 22:51 Results - Labs CBC & Chem 7: 11/30/20 14:53 11/30/20 08:40 Labs: Laboratory Last Values WBC 11.5 K/mm3 (4.5-11.0) H 11/30/20 08:40 RBC 2.57 M/mm3 (3.65-5.03) L 11/30/20 08:40 Hgb 6.9 gm/dl (11.8-15.2) L 11/30/20 08:40 Hct 20.1 % (35.5-45.6) L 11/30/20 08:40 MCV 77 fl (84-94) L 11/30/20 08:40 MCH 26 pg (28-32) L 11/30/20 08:40 MCHC 34 % (32-34) 11/30/20 08:40 RDW 17.2 % (13.2-15.2) H 11/30/20 08:40 Plt Count 472 K/mm3 (140-440) H 11/30/20 08:40 Lymph % (Auto) 10.1 % (13.4-35.0) L 11/25/20 04:14 Mason % (Auto) 6.5 % (0.0-7.3) 11/25/20 04:14 Eos % (Auto) 0.8 % (0.0-4.3) 11/25/20 04:14 Baso % (Auto) 0.1 % (0.0-1.8) 11/25/20 04:14 Lymph # (Auto) 1.5 K/mm3 (1.2-5.4) 11/25/20 04:14 Mason # (Auto) 1.0 K/mm3 (0.0-0.8) H 11/25/20 04:14 Eos # (Auto) 0.1 K/mm3 (0.0-0.4) 11/25/20 04:14 Baso # (Auto) 0.0 K/mm3 (0.0-0.1) 11/25/20 04:14 Add Manual Diff Complete 11/23/20 04:54 Total Counted 200 11/23/20 04:54 Seg Neutrophils % 82.5 % (40.0-70.0) H 11/25/20 04:14 Seg Neuts % (Manual) 95.5 % (40.0-70.0) H 11/23/20 04:54 Band Neutrophils % 0.5 % 11/23/20 04:54 Lymphocytes % (Manual) 3.0 % (13.4-35.0) L 11/23/20 04:54 Monocytes % (Manual) 1.0 % (0.0-7.3) 11/23/20 04:54 Eosinophils % (Manual) 1.0 % (0.0-4.3) 11/22/20 05:12 Nucleated RBC % Not Reportable 11/23/20 04:54 Seg Neutrophils # 12.3 K/mm3 (1.8-7.7) H 11/25/20 04:14 Seg Neutrophils # Man 19.4 K/mm3 (1.8-7.7) H 11/23/20 04:54 Band Neutrophils # 0.1 K/mm3 11/23/20 04:54 Lymphocytes # (Manual) 0.6 K/mm3 (1.2-5.4) L 11/23/20 04:54 Abs React Lymphs (Man) 0.0 K/mm3 11/23/20 04:54 Monocytes # (Manual) 0.2 K/mm3 (0.0-0.8) 11/23/20 04:54 Eosinophils # (Manual) 0.0 K/mm3 (0.0-0.4) 11/23/20 04:54 Basophils # (Manual) 0.0 K/mm3 (0.0-0.1) 11/23/20 04:54 Metamyelocytes # 0.0 K/mm3 11/23/20 04:54 Myelocytes # 0.0 K/mm3 11/23/20 04:54 Promyelocytes # 0.0 K/mm3 11/23/20 04:54 Blast Cells # 0.0 K/mm3 11/23/20 04:54 WBC Morphology Not Reportable 11/23/20 04:54 Hypersegmented Neuts Not Reportable 11/23/20 04:54 Hyposegmented Neuts Not Reportable 11/23/20 04:54 Hypogranular Neuts Not Reportable 11/23/20 04:54 Smudge Cells Not Reportable 11/23/20 04:54 Toxic Granulation Not Reportable 11/23/20 04:54 Toxic Vacuolation Not Reportable 11/23/20 04:54 Dohle Bodies Not Reportable 11/23/20 04:54 Pelger-Huet Anomaly Not Reportable 11/23/20 04:54 Aiden Rods Not Reportable 11/23/20 04:54 Platelet Estimate Consistent w auto 11/23/20 04:54 Clumped Platelets Not Reportable 11/23/20 04:54 Plt Clumps, EDTA Not Reportable 11/23/20 04:54 Large Platelets Not Reportable 11/23/20 04:54 Giant Platelets Not Reportable 11/23/20 04:54 Platelet Satelliting Not Reportable 11/23/20 04:54 Plt Morphology Comment Not Reportable 11/23/20 04:54 RBC Morphology Not Reportable 11/23/20 04:54 Dimorphic RBCs Not Reportable 11/23/20 04:54 Polychromasia Not Reportable 11/23/20 04:54 Hypochromasia Not Reportable 11/23/20 04:54 Poikilocytosis Not Reportable 11/23/20 04:54 Anisocytosis 1+ 11/23/20 04:54 Microcytosis Not Reportable 11/23/20 04:54 Macrocytosis Not Reportable 11/23/20 04:54 Spherocytes Not Reportable 11/23/20 04:54 Pappenheimer Bodies Not Reportable 11/23/20 04:54 Sickle Cells Not Reportable 11/23/20 04:54 Target Cells 2+ 11/23/20 04:54 Tear Drop Cells Not Reportable 11/23/20 04:54 Ovalocytes Not Reportable 11/23/20 04:54 Helmet Cells Not Reportable 11/23/20 04:54 [place] Bodies Not Reportable 11/23/20 04:54 [place] Rings Not Reportable 11/23/20 04:54 [place] Cells Not Reportable 11/23/20 04:54 Bite Cells Not Reportable 11/23/20 04:54 Crenated Cell Not Reportable 11/23/20 04:54 Elliptocytes Not Reportable 11/23/20 04:54 Acanthocytes (Spur) Not Reportable 11/23/20 04:54 Rouleaux Not Reportable 11/23/20 04:54 Hemoglobin C Crystals Not Reportable 11/23/20 04:54 Schistocytes Not Reportable 11/23/20 04:54 Malaria parasites Not Reportable 11/23/20 04:54 Florin Bodies Not Reportable 11/23/20 04:54 Hem Pathologist Commnt No 11/23/20 04:54 PT 16.1 Sec. (12.2-14.9) H 11/19/20 16:44 INR 1.24 (0.87-1.13) H 11/19/20 16:44 APTT 34.3 Sec. (24.2-36.6) 11/19/20 16:44 D-Dimer 1767.06 ng/mlDDU (0-234) H 11/19/20 16:44 ABG pH 7.454 (7.320-7.450) H 11/28/20 17:47 POC ABG pCO2 25.8 mmHg (32.0-48.0) L 11/28/20 17:47 POC ABG pO2 65.5 mmHg (83-108) L 11/28/20 17:47 POC ABG HCO3 17.7 11/28/20 17:47 ABG O2 Saturation 94.3 (0-100) 11/28/20 17:47 POC ABG Base Excess -5.5 11/28/20 17:47 ABG Hemoglobin 7.0 (12.0-17.5) L 11/28/20 17:47 ABG Oxyhemoglobin 92.2 (94-98) L 11/28/20 17:47 ABG Methemoglobin 0.3 (0.0-1.5) 11/28/20 17:47 ABG Sodium 143.6 mmol/L (136.0-145.0) 11/28/20 17:47 ABG Potassium 3.6 mmol/L (3.40-4.50) 11/28/20 17:47 ABG Chloride 117.0 mmol/L (98-107) H 11/28/20 17:47 ABG Glucose 104 mg/dL (65-95) H 11/28/20 17:47 Carboxyhemoglobin 1.9 (0.5-1.5) H 11/28/20 17:47 FiO2 % 21.0 11/28/20 17:47 Sodium 139 mmol/L (137-145) 11/30/20 08:40 Potassium 3.4 mmol/L (3.6-5.0) L 11/30/20 08:40 Chloride 106.4 mmol/L (98-107) 11/30/20 08:40 Carbon Dioxide 21 mmol/L (22-30) L 11/30/20 08:40 Anion Gap 15 mmol/L 11/30/20 08:40 BUN 21 mg/dL (9-20) H 11/30/20 08:40 Creatinine 1.1 mg/dL (0.8-1.3) 11/30/20 08:40 Estimated GFR > 60 ml/min 11/30/20 08:40 BUN/Creatinine Ratio 19 % 11/30/20 08:40 Glucose 107 mg/dL (75-100) H 11/30/20 08:40 POC Glucose 116 mg/dL (70-105) H 11/30/20 06:12 Lactic Acid 3.10 mmol/L (0.7-2.0) H* 11/19/20 18:28 Calcium 8.1 mg/dL (8.4-10.2) L 11/30/20 08:40 Phosphorus 2.20 mg/dL (2.5-4.5) L 11/30/20 08:40 Magnesium 1.70 mg/dL (1.7-2.3) 11/30/20 08:40 Total Bilirubin 1.70 mg/dL (0.1-1.2) H 11/25/20 04:14 Direct Bilirubin 0.2 mg/dL (0-0.2) 11/19/20 16:44 Indirect Bilirubin 0.3 mg/dL 11/19/20 16:44 AST 25 units/L (5-40) 11/25/20 04:14 ALT 32 units/L (7-56) 11/25/20 04:14 Alkaline Phosphatase 210 units/L (35-129) H 11/25/20 04:14 Total Creatine Kinase 26 units/L (55-170) L 11/19/20 16:44 CK-MB (CK-2) < 1.0 ng/mL (0.0-4.0) 11/19/20 16:44 CK-MB (CK-2) Rel Index 3.8 (0-4) 11/19/20 16:44 Troponin T < 0.010 ng/mL (0.00-0.029) 11/19/20 22:51 NT-Pro-B Natriuret Pep 454.0 pg/mL (0-900) 11/19/20 16:44 Total Protein 6.5 g/dL (6.3-8.2) 11/25/20 04:14 Albumin 2.5 g/dL (3.9-5) L 11/25/20 04:14 Albumin/Globulin Ratio 0.6 % 11/25/20 04:14 Lipase 67 units/L (13-60) H 11/20/20 07:58 Arterial Blood Glucose 104 mg/dL (65-95) H 11/28/20 17:47 Arterial Blood Ionized Calcium 4.5 mg/dL (4.6-5.3) L 11/28/20 17:47 Urine Color Yellow (Yellow) 11/19/20 19:18 Urine Turbidity Slightly-cloudy (Clear) 11/19/20 19:18 Urine pH 5.0 (5.0-7.0) 11/19/20 19:18 Ur Specific [place] 1.023 (1.003-1.030) 11/19/20 19:18 Urine Protein <15 mg/dl mg/dL (Negative) 11/19/20 19:18 Urine Glucose (UA) Neg mg/dL (Negative) 11/19/20 19:18 Urine Ketones Neg mg/dL (Negative) 11/19/20 19:18 Urine Blood Neg (Negative) 11/19/20 19:18 Urine Nitrite Neg (Negative) 11/19/20 19:18 Urine Bilirubin Neg (Negative) 11/19/20 19:18 Urine Urobilinogen < 2.0 mg/dL (<2.0) 11/19/20 19:18 Ur Leukocyte Esterase Mod (Negative) 11/19/20 19:18 Urine WBC (Auto) 33.0 /HPF (0.0-6.0) H 11/19/20 19:18 Urine RBC (Auto) 4.0 /HPF (0.0-6.0) 11/19/20 19:18 U Epithel Cells (Auto) 6.0 /HPF (0-13.0) 11/19/20 19:18 Urine Bacteria (Auto) 1+ /HPF (Negative) 11/19/20 19:18 Hyaline Casts 1 /LPF 11/19/20 19:18 Urine Mucus Few /HPF 11/19/20 19:18 Nasal Screen MRSA (PCR) Negative (Negative) 11/20/20 Unknown Urine Opiates Screen Negative 11/19/20 19:18 Urine Methadone Screen Negative 11/19/20 19:18 Ur Barbiturates Screen Negative 11/19/20 19:18 Ur Phencyclidine Scrn Negative 11/19/20 19:18 Ur Amphetamines Screen Negative 11/19/20 19:18 U Benzodiazepines Scrn Negative 11/19/20 19:18 Urine Cocaine Screen Negative 11/19/20 19:18 U Marijuana (THC) Screen Negative 11/19/20 19:18 Drugs of Abuse Note Disclamer 11/19/20 19:18 Coronavirus (PCR) Negative (Negative) 11/27/20 08:45 Viramontes/IV: Voiding Method Condom Catheter Active Medications - Current Medications Current Medications: Generic Name Dose Route Start Last Admin Trade Name Freq PRN Reason Stop Dose Admin Acetaminophen 650 mg 11/20/20 14:00 11/29/20 23:24 Acetaminophen 325 Mg Tab PO 650 mg Q6H PRN Administration Pain, Mild (1-3) Albuterol 2.5 mg 11/30/20 12:00 Albuterol 2.5 Mg/3 Ml Nebu IH Q4HRT PRN Shortness Of Breath Enoxaparin Sodium 40 mg 11/19/20 19:00 11/29/20 12:59 Enoxaparin 40 Mg/0.4 Ml Inj SUB-Q 40 mg QDAY JANNETH Administration Folic Acid 1 mg 11/20/20 10:00 11/29/20 12:47 Folic Acid 1 Mg Tab PO 1 mg QDAY JANNETH Administration Furosemide 20 mg 11/30/20 10:00 Furosemide 20 Mg Tab PO QDAY JANNETH Haloperidol Lactate 5 mg 11/19/20 20:23 11/23/20 21:56 Haloperidol Lactate 5 Mg/1 Ml Inj IV 5 mg Q1HR PRN Administration Unrespon. to mult. doses BZD's Hydralazine HCl 10 mg 11/19/20 18:18 Hydralazine 20 Mg/1 Ml Inj IV Q4HR PRN Hypertension Potassium Phosphate 45 mmol/ 515 mls @ 85 mls/hr 11/30/20 10:38 Sodium Chloride IV 11/30/20 16:41 ONCE ONE Lorazepam 2 mg 11/27/20 12:30 11/28/20 12:21 Lorazepam 2 Mg/Ml Vial IV 2 mg Q4H PRN Administration Agitation Losartan Potassium 100 mg 11/20/20 10:00 11/29/20 12:49 Losartan 50 Mg Tab PO 100 mg QDAY JANNETH Administration Metoprolol Tartrate 12.5 mg 11/28/20 22:00 11/29/20 21:24 Metoprolol Tartrate 25 Mg Tab PO 12.5 mg BID JANNETH Administration Morphine Sulfate 2 mg 11/20/20 10:30 11/30/20 02:38 Morphine 2 Mg/1 Ml Inj IV 2 mg Q6H PRN Administration Pain, Moderate (4-6) Naloxone HCl 0.1 mg 11/19/20 18:11 Naloxone 0.4 Mg/1 Ml Inj IV Q2MIN PRN Res Rate </= 8 or 02 SAT < 92% Ondansetron HCl 4 mg 11/19/20 18:11 11/27/20 16:40 Ondansetron 4 Mg/2 Ml Inj IV 4 mg Q8H PRN Administration Nausea And Vomiting Pantoprazole Sodium 40 mg 11/21/20 16:30 11/29/20 17:46 Pantoprazole 40 Mg Tab PO 40 mg BIDAC JANNETH Administration Sodium Bicarbonate 1,300 mg 11/29/20 20:00 11/29/20 21:24 Sodium Bicarbonate 650 Mg Tab PO 1,300 mg TID JANNETH Administration Sodium Chloride 10 ml 11/19/20 22:00 11/29/20 21:24 Sodium Chloride 0.9% 10 Ml Flush Syringe IV 10 ml BID JANNETH Administration Sodium Chloride 10 ml 11/19/20 19:11 11/28/20 06:39 Sodium Chloride 0.9% 10 Ml Flush Syringe IV 10 ml PRN PRN Administration LINE FLUSH Nutrition/Malnutrition Assess - Dietary Evaluation Nutrition/Malnutrition Findings: Nutrition Notes Start: 11/20/20 12:00 Freq: Status: Active Protocol: Document 11/29/20 11:46 CW (Rec: 11/29/20 11:51 CW [id number]) Nutrition Notes Initial or Follow up Reassessment Current Diagnosis Sepsis,Hypertension, Hyperlipidemia Other Pertinent Diagnosis Acute alcoholic pancreatitis, EtOH withdrawal delirium, ARF, GERD Current Diet Regular Labs/Tests 11/28 Na 147 Pertinent Medications lasix D5 1/2 NS at 150 ml/hr Height 5 ft 10 in Weight 86.8 kg [place] Body Weight (kg) 75.45 BMI 27.4 Weight change and time frame will monitor for weight trend. weight change may be related to fluid Weight Status Overweight Subjective/Other Information F/U for intakes and need for ONS. Lunch observed at beside. Pt consumed <25% of meal. Pt reports ususally eating a bit of fruit at meals. Encouraged pt to drink ONS. Per order, pt is vegetarian, diet order altered to highlight this fact . Emphasized importance of drinking ONS. No ONS observed in room; will restart and monitor for ONS build up. Percent of energy/protein needs met: neglible Burn Absent Trauma Absent Current % PO Negligible Minimum of two criteria No Energy Intake (severe) < or equal to 50% Estimated Energy Requirement > or equal to 5 days #2 Nutrition Diagnosis Inadequate oral intake Diagnosis Progress(for reassessment Continues documentation) Is patient on ventilator? No Is Patient Ambulatory and/or Out of Bed No REE-([facility]-confined to bed) Calculation Used for Recommendations [facility] Additional Notes Pro needs 1-1.2g/k-98g/ day Fluid needs 1ml/kcal Nutrition Intervention Change Diet Order: Change diet to vegetarian diet Add Supplement/Snack (indicate name/kcal Ensure Enlive BID /protein ) Provides kCal: 700 Provides Protein (gm) 40 Goal #1 Meet 75% of energy and protein needs Anticipated Discharge Needs: CHO-controlled, low fat diet Follow-Up By: 12/03/20 Additional Comments F/U for intakes and need for ONS
[2020-11-30 10:57] LABS: Band Neutrophils # (Manual) 0.1 K/mm3; Total Cells Counted 100
[2020-11-30 10:59] LABS: Platelet Estimate Consistent w Auto; Spherocytes Few; Target Cells 2+; Tear Drop Cells Few
[2020-11-30] MEDS ORDERED: POTASSIUM PHOSPHATE 45 MMOL in SODIUM CHLORIDE 0.9% 500 ML 500 ML IV ONE (11:00)
[2020-11-30] MEDS: LOSARTAN 50 MG TAB PO SCH (11:02)
[2020-11-30] MEDS: ENOXAPARIN 40 MG/0.4 ML INJ SUB-Q SCH (11:02)
[2020-11-30] MEDS: FUROSEMIDE 20 MG TAB PO SCH (11:02)
[2020-11-30] MEDS: PANTOPRAZOLE 40 MG TAB PO SCH ×2 (11:02→17:23)
[2020-11-30] MEDS: FOLIC ACID 1 MG TAB PO SCH (11:03)
[2020-11-30] MEDS: ACETAMINOPHEN 325 MG TAB PO PRN ×2 (11:03→17:23)
[2020-11-30] MEDS: SODIUM BICARBONATE 650 MG TAB PO SCH ×3 (11:05→19:55)
[2020-11-30] MEDS: METOPROLOL TARTRATE 25 MG TAB PO SCH ×2 (11:06→21:19)
[2020-11-30] MEDS ORDERED: ALBUTEROL 2.5 MG/3 ML NEBU IH PRN (12:00)
[2020-11-30] MEDS ORDERED: SODIUM CHLORIDE 0.9% 500 ML 500 ML IV NR (12:00)
[2020-11-30 15:20] LABS: Hematocrit 20.7 % (35.5-45.6); Hemoglobin 6.9 gm/dl (11.8-15.2)
[2020-11-30] MEDS: ONDANSETRON 4 MG/2 ML INJ IV PRN (18:37)
[2020-11-30] MEDS ORDERED: SODIUM CHLORIDE 0.9% 1000 ML 1,000 ML ONE (19:00)
[2020-12-01] MEDS: ACETAMINOPHEN 325 MG TAB PO PRN ×2 (05:30→20:24)
[2020-12-01 06:29] LABS: Hematocrit 23.5 % (35.5-45.6); Hemoglobin 8.1 gm/dl (11.8-15.2)
[2020-12-01 06:38] LABS: INR 1.21 (0.87-1.13)
[2020-12-01 06:39] LABS: Partial Thromboplastin Time 33.7 Sec. (24.2-36.6)
[2020-12-01 06:50] LABS: Alanine Aminotransferase 10 units/L (7-56); Albumin 2.2 g/dL (3.9-5); BUN/Creatinine Ratio 18; Blood Urea Nitrogen 14 mg/dL (9-20); Calcium 7.7 mg/dL (8.4-10.2); Hemolysis Index 3
[2020-12-01] MEDS: MORPHINE 2 MG/1 ML INJ IV PRN ×3 (08:59→22:52)
[2020-12-01] MEDS: SODIUM BICARBONATE 650 MG TAB PO SCH ×3 (09:05→20:27)
[2020-12-01] MEDS: PANTOPRAZOLE 40 MG TAB PO SCH ×2 (09:05→16:48)
[2020-12-01] MEDS: LOSARTAN 50 MG TAB PO SCH (11:08)
[2020-12-01] MEDS: FOLIC ACID 1 MG TAB PO SCH (11:08)
[2020-12-01] MEDS: METOPROLOL TARTRATE 25 MG TAB PO SCH ×2 (11:08→21:35)
[2020-12-01] MEDS: ENOXAPARIN 40 MG/0.4 ML INJ SUB-Q SCH (11:09)
[2020-12-01] MEDS: FUROSEMIDE 20 MG TAB PO SCH (11:30)
--- NOTE | 2020-12-01 11:58 | Progress Note ---
Assessment and Plan Assessment and plan: --Abdominal pain/mild distention; IV Protonix, Maalox if needed, will check CT abdomen and pelvis To evaluate for any acute process Change to clear liquids as tolerated If no improvement will consult GI --Anemia; Hb today 6.9- 8.1- Current Visit: No Status: Acute. No external evidence of bleeding Stool for occult blood negative Received 1 unit of PRBC transfusion, Hb improved to 8.1, Closely monitor --Hypophosphatemia/hypokalemia; Current Visit: No Status: Acute replenished with IV potassium phosphate Follow electrolytes --Alcohol withdrawal delirium Current Visit: No Status: Acute Symptoms significantly improved Patient is more alert and awake PT OT evaluated recommended Subacute/SNF placement --Acute /chronic pancreatitis/alcohol related Current Visit: No Status: Acute Symptoms significantly improved Currently on regular diet Antiemetics, IV Protonix --Acute kidney injury; Current Visit: Yes Status: Acute Vasomotor nephropathy, resolved --History of chronic ETOH abuse Current Visit: No Status: Chronic Education given to the patient advised to quit Also advised to seek alcohol rehabilitation And alcohol Anonymous support group When medically stable --Hypertension Current Visit: No Status: Chronic Moderate control continue current antihypertensives to 2 or 3 depending on --Ongoing tobacco use Current Visit: No Status: Chronic Smoking cessation counseling Strongly advised nicotine patch. --Sepsis/secondary to UTI/pancreatitis Current Visit: No Status: Acute Leukocytosis, tachycardia, lactic acidosis and UTI/pancreatitis Empiric antibiotics, follow cultures, supportive care, IV fluids Urine cultures positive for gram-negative rods Completed Zosyn. --UTI/E. coli Current Visit: No Status: Acute Completed Zosyn, supportive care --Severe protein calorie malnutrition Current Visit: No Status: Acute Hypoalbuminemia , albumin 2.8 Nutrition supplements, nutrition consult and supportive care -- Metabolic acidosis Current Visit: Yes Status: Acute Plan to address problem: Secondary to uremia as well as chronic pancreatitis treat underlying etiology. --DVT prophylaxis Current Visit: Yes Status: Acute Heparin subcu We will closely monitor the patient and adjust management as needed Plan of care reviewed with the patient and his nurse. Follow-up CT abdomen and pelvis findings and manage accordingly Brief history and hospital course; 60-year-old male patient was admitted with alcohol withdrawal symptoms On CIWA protocol patient continues to be agitated confused, and hallucinating Restrained for safety, sepsis secondary to UTI 11/20/2020; patient feels slightly better, no significant withdrawal symptoms Patient is on CIWA protocol, stable to be transferred out of IMCU to medical floor 11/21/2020; patient has severe agitation tremulousness, patient is on CIWA protocol Closely monitor withdrawal symptoms, adjust the medications as needed in the morning equal in both upper Advance diet to regular as tolerated. I called patient's mother and also patient's daughter Ms. Huong Hua at [phone] 11/22/2020; Patient continues to be agitated confused mumbling, On CIWA protocol, restraint for safety. E. coli UTI on Zosyn Called again patient's daughter next of kin Ms. Huong Hua at [phone][number obtained from bilingual patient support caseworker Ms. Vo] Did not garbage pick up worker the phone I left a voicemail again today to discuss about Mr. Parada's condition and treatment plan 11/23/2020 Patient continues to be agitated Resumed service 11/26/2020; Patient still has mild alcohol withdrawal symptoms On CIWA protocol More alert and awake responding appropriately Restraint for safety 11/27/2020; Patient is off CIWA protocol and restraints PT OT evaluation requested PT recommend subacute rehab DC planning per case management 11/28/2020; today patient has some mild shortness of breath and wheezing Tachycardia heart rate in 100 -110 , alert awake oriented x3 Possible fluid overload, give 1 dose of Lasix IV, checks chest x-ray Supportive care 11/29/2020; patient is more alert and awake, no shortness of breath No tremulousness or agitation, vital signs reviewed Awaiting placement to subacute/SNF DC planning per case management 11/30/2020; Anemia patient's hemoglobin dropped to 6.9 Repeat H&H hemoglobin 6.9, type and cross transfuse 1 unit PRBC Stool for occult blood, GI consult if needed 12/01/2020; stool guaiac negative Hb improved to 8.1, complains of some abdominal pain and discomfort Will check CT abdomen and pelvis Pending placement History Interval history: I seen and examined the patient at the bedside this morning Patient's chart and medications reviewed Patient complains of some abdominal pain discomfort mild distention Vital signs noted No evidence of alcohol withdrawal symptoms Hospitalist Physical - Constitutional Vitals: Temp Pulse Resp BP Pulse Ox 98.6 F 88 18 106/62 94 06/20/21 09:41 12/01/20 09:41 12/01/20 09:41 12/01/20 09:41 12/01/20 10:00 General appearance: Present: no acute distress, well-nourished, other (No agitation no tremulousness) - EENT Eyes: Present: PERRL, EOM intact - Neck Neck: Present: supple, normal ROM - Respiratory Respiratory effort: normal Respiratory: bilateral: diminished, negative: rales, rhonchi, wheezing - Cardiovascular Rhythm: regular Heart Sounds: Present: S1 & S2 - Extremities Extremities: no ischemia, No edema - Abdominal General gastrointestinal: soft, non-tender, non-distended, normal bowel sounds - Integumentary Integumentary: Present: clear, warm - Psychiatric Psychiatric: appropriate mood/affect, cooperative - Neurologic Neurologic: CNII-XII intact, moves all extremities HEART Score - HEART Score Troponin: Troponin T < 0.010 ng/mL (0.00-0.029) 11/19/20 22:51 Results - Labs CBC & Chem 7: 12/01/20 05:53 12/01/20 05:53 Labs: Laboratory Last Values WBC 11.5 K/mm3 (4.5-11.0) H 11/30/20 08:40 RBC 2.57 M/mm3 (3.65-5.03) L 11/30/20 08:40 Hgb 8.1 gm/dl (11.8-15.2) L 12/01/20 05:53 Hct 23.5 % (35.5-45.6) L 12/01/20 05:53 MCV 77 fl (84-94) L 11/30/20 08:40 MCH 26 pg (28-32) L 11/30/20 08:40 MCHC 34 % (32-34) 11/30/20 08:40 RDW 17.2 % (13.2-15.2) H 11/30/20 08:40 Plt Count 472 K/mm3 (140-440) H 11/30/20 08:40 Lymph % (Auto) 10.1 % (13.4-35.0) L 11/25/20 04:14 [place] % (Auto) 6.5 % (0.0-7.3) 11/25/20 04:14 Eos % (Auto) 0.8 % (0.0-4.3) 11/25/20 04:14 Baso % (Auto) 0.1 % (0.0-1.8) 11/25/20 04:14 Lymph # (Auto) 1.5 K/mm3 (1.2-5.4) 11/25/20 04:14 [place] # (Auto) 1.0 K/mm3 (0.0-0.8) H 11/25/20 04:14 Eos # (Auto) 0.1 K/mm3 (0.0-0.4) 11/25/20 04:14 Baso # (Auto) 0.0 K/mm3 (0.0-0.1) 11/25/20 04:14 Add Manual Diff Complete 11/30/20 08:40 Total Counted 100 11/30/20 08:40 Seg Neutrophils % 82.5 % (40.0-70.0) H 11/25/20 04:14 Seg Neuts % (Manual) 83.0 % (40.0-70.0) H 11/30/20 08:40 Band Neutrophils % 1.0 % 11/30/20 08:40 Lymphocytes % (Manual) 7.0 % (13.4-35.0) L 11/30/20 08:40 Reactive Lymphs % (Man) 2.0 % 11/30/20 08:40 Monocytes % (Manual) 7.0 % (0.0-7.3) 11/30/20 08:40 Eosinophils % (Manual) 1.0 % (0.0-4.3) 11/22/20 05:12 Nucleated RBC % 3.0 % (0.0-0.9) H 11/30/20 08:40 Seg Neutrophils # 12.3 K/mm3 (1.8-7.7) H 11/25/20 04:14 Seg Neutrophils # Man 9.5 K/mm3 (1.8-7.7) H 11/30/20 08:40 Band Neutrophils # 0.1 K/mm3 11/30/20 08:40 Lymphocytes # (Manual) 0.8 K/mm3 (1.2-5.4) L 11/30/20 08:40 Abs React Lymphs (Man) 0.2 K/mm3 11/30/20 08:40 Monocytes # (Manual) 0.8 K/mm3 (0.0-0.8) 11/30/20 08:40 Eosinophils # (Manual) 0.0 K/mm3 (0.0-0.4) 11/30/20 08:40 Basophils # (Manual) 0.0 K/mm3 (0.0-0.1) 11/30/20 08:40 Metamyelocytes # 0.0 K/mm3 11/30/20 08:40 Myelocytes # 0.0 K/mm3 11/30/20 08:40 Promyelocytes # 0.0 K/mm3 11/30/20 08:40 Blast Cells # 0.0 K/mm3 11/30/20 08:40 WBC Morphology Not Reportable 11/30/20 08:40 WBC Morphology TNR 11/30/20 08:40 Hypersegmented Neuts Not Reportable 11/30/20 08:40 Hyposegmented Neuts Not Reportable 11/30/20 08:40 Hypogranular Neuts Not Reportable 11/30/20 08:40 Smudge Cells Not Reportable 11/30/20 08:40 Toxic Granulation Not Reportable 11/30/20 08:40 Toxic Vacuolation Not Reportable 11/30/20 08:40 Dohle Bodies Not Reportable 11/30/20 08:40 Pelger-Huet Anomaly Not Reportable 11/30/20 08:40 Aiden Rods Not Reportable 11/30/20 08:40 Platelet Estimate Consistent w auto 11/30/20 08:40 Clumped Platelets Not Reportable 11/30/20 08:40 Plt Clumps, EDTA Not Reportable 11/30/20 08:40 Large Platelets Not Reportable 11/30/20 08:40 Giant Platelets Not Reportable 11/30/20 08:40 Platelet Satelliting Not Reportable 11/30/20 08:40 Plt Morphology Comment Not Reportable 11/30/20 08:40 RBC Morphology Not Reportable 11/30/20 08:40 Dimorphic RBCs Not Reportable 11/30/20 08:40 Polychromasia Not Reportable 11/30/20 08:40 Hypochromasia Not Reportable 11/30/20 08:40 Poikilocytosis Not Reportable 11/30/20 08:40 Anisocytosis Not Reportable 11/30/20 08:40 Microcytosis Not Reportable 11/30/20 08:40 Macrocytosis Not Reportable 11/30/20 08:40 Spherocytes Few 11/30/20 08:40 Pappenheimer Bodies Not Reportable 11/30/20 08:40 Sickle Cells Not Reportable 11/30/20 08:40 Target Cells 2+ 11/30/20 08:40 Tear Drop Cells Few 11/30/20 08:40 Ovalocytes Not Reportable 11/30/20 08:40 Helmet Cells Not Reportable 11/30/20 08:40 Lux-[place] Bodies Not Reportable 11/30/20 08:40 [place] Rings Not Reportable 11/30/20 08:40 [place] Cells Not Reportable 11/30/20 08:40 Bite Cells Not Reportable 11/30/20 08:40 Crenated Cell Not Reportable 11/30/20 08:40 Elliptocytes Not Reportable 11/30/20 08:40 Acanthocytes (Spur) Not Reportable 11/30/20 08:40 Rouleaux Not Reportable 11/30/20 08:40 Hemoglobin C Crystals Not Reportable 11/30/20 08:40 Schistocytes Not Reportable 11/30/20 08:40 Malaria parasites Not Reportable 11/30/20 08:40 Florin Bodies Not Reportable 11/30/20 08:40 Hem Pathologist Commnt No 11/30/20 08:40 PT 15.8 Sec. (12.2-14.9) H 12/01/20 05:53 INR 1.21 (0.87-1.13) H 12/01/20 05:53 APTT 33.7 Sec. (24.2-36.6) 12/01/20 05:53 D-Dimer 1767.06 ng/mlDDU (0-234) H 11/19/20 16:44 ABG pH 7.454 (7.320-7.450) H 11/28/20 17:47 POC ABG pCO2 25.8 mmHg (32.0-48.0) L 11/28/20 17:47 POC ABG pO2 65.5 mmHg (83-108) L 11/28/20 17:47 POC ABG HCO3 17.7 11/28/20 17:47 ABG O2 Saturation 94.3 (0-100) 11/28/20 17:47 POC ABG Base Excess -5.5 11/28/20 17:47 ABG Hemoglobin 7.0 (12.0-17.5) L 11/28/20 17:47 ABG Oxyhemoglobin 92.2 (94-98) L 11/28/20 17:47 ABG Methemoglobin 0.3 (0.0-1.5) 11/28/20 17:47 ABG Sodium 143.6 mmol/L (136.0-145.0) 11/28/20 17:47 ABG Potassium 3.6 mmol/L (3.40-4.50) 11/28/20 17:47 ABG Chloride 117.0 mmol/L (98-107) H 11/28/20 17:47 ABG Glucose 104 mg/dL (65-95) H 11/28/20 17:47 Carboxyhemoglobin 1.9 (0.5-1.5) H 11/28/20 17:47 FiO2 % 21.0 11/28/20 17:47 Sodium 141 mmol/L (137-145) 12/01/20 05:53 Potassium 3.6 mmol/L (3.6-5.0) 12/01/20 05:53 Chloride 106.5 mmol/L (98-107) 12/01/20 05:53 Carbon Dioxide 23 mmol/L (22-30) 12/01/20 05:53 Anion Gap 15 mmol/L 12/01/20 05:53 BUN 14 mg/dL (9-20) 12/01/20 05:53 Creatinine 0.8 mg/dL (0.8-1.3) 12/01/20 05:53 Estimated GFR > 60 ml/min 12/01/20 05:53 BUN/Creatinine Ratio 18 % 12/01/20 05:53 Glucose 85 mg/dL (75-100) 12/01/20 05:53 POC Glucose 103 mg/dL (70-105) 11/30/20 21:06 Lactic Acid 3.10 mmol/L (0.7-2.0) H* 11/19/20 18:28 Calcium 7.7 mg/dL (8.4-10.2) L 12/01/20 05:53 Phosphorus 2.20 mg/dL (2.5-4.5) L 11/30/20 08:40 Magnesium 1.70 mg/dL (1.7-2.3) 11/30/20 08:40 Total Bilirubin 0.40 mg/dL (0.1-1.2) 12/01/20 05:53 Direct Bilirubin 0.2 mg/dL (0-0.2) 11/19/20 16:44 Indirect Bilirubin 0.3 mg/dL 11/19/20 16:44 AST 14 units/L (5-40) 12/01/20 05:53 ALT 10 units/L (7-56) 12/01/20 05:53 Alkaline Phosphatase 131 units/L (35-129) H 12/01/20 05:53 Total Creatine Kinase 26 units/L (55-170) L 11/19/20 16:44 CK-MB (CK-2) < 1.0 ng/mL (0.0-4.0) 11/19/20 16:44 CK-MB (CK-2) Rel Index 3.8 (0-4) 11/19/20 16:44 Troponin T < 0.010 ng/mL (0.00-0.029) 11/19/20 22:51 NT-Pro-B Natriuret Pep 454.0 pg/mL (0-900) 11/19/20 16:44 Total Protein 5.0 g/dL (6.3-8.2) L 12/01/20 05:53 Albumin 2.2 g/dL (3.9-5) L 12/01/20 05:53 Albumin/Globulin Ratio 0.8 % 12/01/20 05:53 Lipase 67 units/L (13-60) H 11/20/20 07:58 Arterial Blood Glucose 104 mg/dL (65-95) H 11/28/20 17:47 Arterial Blood Ionized Calcium 4.5 mg/dL (4.6-5.3) L 11/28/20 17:47 Urine Color Yellow (Yellow) 11/19/20 19:18 Urine Turbidity Slightly-cloudy (Clear) 11/19/20 19:18 Urine pH 5.0 (5.0-7.0) 11/19/20 19:18 Ur Specific [place] 1.023 (1.003-1.030) 11/19/20 19:18 Urine Protein <15 mg/dl mg/dL (Negative) 11/19/20 19:18 Urine Glucose (UA) Neg mg/dL (Negative) 11/19/20 19:18 Urine Ketones Neg mg/dL (Negative) 11/19/20 19:18 Urine Blood Neg (Negative) 11/19/20 19:18 Urine Nitrite Neg (Negative) 11/19/20 19:18 Urine Bilirubin Neg (Negative) 11/19/20 19:18 Urine Urobilinogen < 2.0 mg/dL (<2.0) 11/19/20 19:18 Ur Leukocyte Esterase Mod (Negative) 11/19/20 19:18 Urine WBC (Auto) 33.0 /HPF (0.0-6.0) H 11/19/20 19:18 Urine RBC (Auto) 4.0 /HPF (0.0-6.0) 11/19/20 19:18 U Epithel Cells (Auto) 6.0 /HPF (0-13.0) 11/19/20 19:18 Urine Bacteria (Auto) 1+ /HPF (Negative) 11/19/20 19:18 Hyaline Casts 1 /LPF 11/19/20 19:18 Urine Mucus Few /HPF 11/19/20 19:18 Nasal Screen MRSA (PCR) Negative (Negative) 11/20/20 Unknown Urine Opiates Screen Negative 11/19/20 19:18 Urine Methadone Screen Negative 11/19/20 19:18 Ur Barbiturates Screen Negative 11/19/20 19:18 Ur Phencyclidine Scrn Negative 11/19/20 19:18 Ur Amphetamines Screen Negative 11/19/20 19:18 U Benzodiazepines Scrn Negative 11/19/20 19:18 Urine Cocaine Screen Negative 11/19/20 19:18 U Marijuana (THC) Screen Negative 11/19/20 19:18 Drugs of Abuse Note Disclamer 11/19/20 19:18 Coronavirus (PCR) Negative (Negative) 11/27/20 08:45 Blood Type O POSITIVE 11/30/20 15:00 Antibody Screen Negative 11/30/20 15:00 Crossmatch See Detail 11/30/20 15:00 Microbiology: Microbiology 11/30/20 02:23 Stool Stool Occult Blood (LUCERO) - Final Viramontes/IV: Voiding Method Condom Catheter Active Medications - Current Medications Current Medications: Generic Name Dose Route Start Last Admin Trade Name Freq PRN Reason Stop Dose Admin Acetaminophen 650 mg 11/20/20 14:00 12/01/20 05:30 Acetaminophen 325 Mg Tab PO 650 mg Q6H PRN Administration Pain, Mild (1-3) Albuterol 2.5 mg 11/30/20 12:00 Albuterol 2.5 Mg/3 Ml Nebu IH Q4HRT PRN Shortness Of Breath Enoxaparin Sodium 40 mg 11/19/20 19:00 12/01/20 11:09 Enoxaparin 40 Mg/0.4 Ml Inj SUB-Q 40 mg QDAY JANNETH Administration Folic Acid 1 mg 11/20/20 10:00 12/01/20 11:08 Folic Acid 1 Mg Tab PO 1 mg QDAY JANNETH Administration Furosemide 20 mg 11/30/20 10:00 12/01/20 11:30 Furosemide 20 Mg Tab PO 20 mg QDAY JANNETH Administration Haloperidol Lactate 5 mg 11/19/20 20:23 11/23/20 21:56 Haloperidol Lactate 5 Mg/1 Ml Inj IV 5 mg Q1HR PRN Administration Unrespon. to mult. doses BZD's Hydralazine HCl 10 mg 11/19/20 18:18 Hydralazine 20 Mg/1 Ml Inj IV Q4HR PRN Hypertension Lorazepam 2 mg 11/27/20 12:30 11/28/20 12:21 Lorazepam 2 Mg/Ml Vial IV 2 mg Q4H PRN Administration Agitation Losartan Potassium 100 mg 11/20/20 10:00 12/01/20 11:08 Losartan 50 Mg Tab PO 100 mg QDAY JANNETH Administration Metoprolol Tartrate 12.5 mg 11/28/20 22:00 12/01/20 11:08 Metoprolol Tartrate 25 Mg Tab PO 12.5 mg BID JANNETH Administration Morphine Sulfate 2 mg 11/20/20 10:30 12/01/20 08:59 Morphine 2 Mg/1 Ml Inj IV 2 mg Q6H PRN Administration Pain, Moderate (4-6) Naloxone HCl 0.1 mg 11/19/20 18:11 Naloxone 0.4 Mg/1 Ml Inj IV Q2MIN PRN Res Rate </= 8 or 02 SAT < 92% Ondansetron HCl 4 mg 11/19/20 18:11 06/19/21 18:37 Ondansetron 4 Mg/2 Ml Inj IV 4 mg Q8H PRN Administration Nausea And Vomiting Pantoprazole Sodium 40 mg 11/21/20 16:30 12/01/20 09:05 Pantoprazole 40 Mg Tab PO 40 mg BIDAC JANNETH Administration Sodium Bicarbonate 1,300 mg 11/29/20 20:00 12/01/20 09:05 Sodium Bicarbonate 650 Mg Tab PO 1,300 mg TID JANNETH Administration Sodium Chloride 10 ml 11/19/20 22:00 12/01/20 11:31 Sodium Chloride 0.9% 10 Ml Flush Syringe IV 10 ml BID JANNETH Administration Sodium Chloride 10 ml 11/19/20 19:11 11/30/20 18:37 Sodium Chloride 0.9% 10 Ml Flush Syringe IV 10 ml PRN PRN Administration LINE FLUSH Nutrition/Malnutrition Assess - Dietary Evaluation Nutrition/Malnutrition Findings: Nutrition Notes Start: 11/20/20 12:00 Freq: Status: Active Protocol: Document 11/29/20 11:46 CW (Rec: 11/29/20 11:51 CW [id number]) Nutrition Notes Initial or Follow up Reassessment Current Diagnosis Sepsis,Hypertension, Hyperlipidemia Other Pertinent Diagnosis Acute alcoholic pancreatitis, EtOH withdrawal delirium, ARF, GERD Current Diet Regular Labs/Tests 11/28 Na 147 Pertinent Medications lasix D5 1/2 NS at 150 ml/hr Height 5 ft 10 in Weight 86.8 kg [place] Body Weight (kg) 75.45 BMI 27.4 Weight change and time frame will monitor for weight trend. weight change may be related to fluid Weight Status Overweight Subjective/Other Information F/U for intakes and need for ONS. Lunch observed at beside. Pt consumed <25% of meal. Pt reports ususally eating a bit of fruit at meals. Encouraged pt to drink ONS. Per order, pt is vegetarian, diet order altered to highlight this fact . Emphasized importance of drinking ONS. No ONS observed in room; will restart and monitor for ONS build up. Percent of energy/protein needs met: neglible Burn Absent Trauma Absent Current % PO Negligible Minimum of two criteria No Energy Intake (severe) < or equal to 50% Estimated Energy Requirement > or equal to 5 days #2 Nutrition Diagnosis Inadequate oral intake Diagnosis Progress(for reassessment Continues documentation) Is patient on ventilator? No Is Patient Ambulatory and/or Out of Bed No [place] 2025.816 Calculation Used for Recommendations [place] Additional Notes Pro needs 1-1.2g/k-98g/ day Fluid needs 1ml/kcal Nutrition Intervention Change Diet Order: Change diet to vegetarian diet Add Supplement/Snack (indicate name/kcal Ensure Enlive BID /protein ) Provides kCal: 700 Provides Protein (gm) 40 Goal #1 Meet 75% of energy and protein needs Anticipated Discharge Needs: CHO-controlled, low fat diet Follow-Up By: 12/03/20 Additional Comments F/U for intakes and need for ONS
--- NOTE | 2020-12-01 15:32 | Cat Scan Report ---
CT abdomen pelvis w con INDICATION / CLINICAL INFORMATION: Abdominal pain/distention. TECHNIQUE: Axial CT images were obtained through the abdomen and pelvis after IV contrast. All CT sc ans at this location are performed using CT dose reduction for ALARA by means of automated exposure c ontrol. COMPARISON: CT from 11/19/2020. FINDINGS: LOWER CHEST: Small bilateral pleural effusions and bibasilar airspace consolidations, may reflect ate lectasis or pneumonia. LIVER: No significant abnormality GALLBLADDER/BILIARY TREE: No significant abnormality PANCREAS: Chronic pancreatitis with multifocal parenchymal calcifications, greatest about the pancrea tic head and neck. No associated pancreatic inflammatory stranding. 1.4 cm cystic structure noted at the head of the pancreas, not discretely seen on prior studies. SPLEEN: New subcapsular splenic collection measuring 11.3 x 3.4 cm (series 2 image 79). ADRENALS: No significant abnormality KIDNEYS / URETER: The kidneys enhance symmetrically. There is no evidence of pyelonephritis. Bilatera l renal cysts are present. Increasing inflammation with enlarging fluid and gas collection in the rig ht pararenal space, measuring 12.2 x 9.6 cm (series 2 image 117). Fluid extends along the right parac olic gutter and along bilateral retrocrural regions. There is also a large collection in the left upp er quadrant, measuring up to 11.8 cm. There is inflammatory stranding about the right proximal ureter . There is mild inflammatory stranding about the left kidney with a small amount of fluid in the uppe r left perirenal space. URINARY BLADDER: Bladder is partially decompressed, though grossly unremarkable. REPRODUCTIVE ORGANS: Prostatic calcifications. STOMACH / BOWEL: Stomach and small bowel are unremarkable. No evidence of bowel obstruction or inflam mation. Colon is remarkable. LYMPH NODES: No significant adenopathy. VASCULATURE: No significant abnormality. OTHER: Multiple focal fluid and gas collections, as above. SKELETAL SYSTEM: Degenerative changes of the spine. No acute osseous findings. IMPRESSION: 1. Interval development of large multifocal fluid and gas collections, which is centered in the right pararenal space. There is inflammatory stranding of the right proximal ureter. This is suspicious fo r forniceal rupture with urinoma and suspected superimposed infection. Large fluid collections are pr esent within the upper abdomen. 2. New moderately sized subcapsular splenic collection, may reflect hematoma or abscess. 3. Small bilateral pleural effusions and adjacent airspace consolidation, may reflect atelectasis or pneumonia. 4. Other chronic findings as above. Signer Name: Angel Lara MD Signed: 12/01/2020 3:27 PM Workstation Name: [id number]
[2020-12-01] MEDS ORDERED: VANCOMYCIN/NS 1 GM/250 ML 1 GM/250 ML BAG IV ONE (16:40)
[2020-12-01] MEDS: CEFEPIME/NS 2 GM/100 ML 2 GM/100 ML BAG IV SCH (16:49)
[2020-12-01] MEDS ORDERED: SODIUM CHLORIDE 0.9% 250ML 250 ML IV ONE (17:38)
--- NOTE | 2020-12-01 17:43 | Event Note ---
Date: 12/01/20 60-year-old male patient who was initially admitted with alcohol withdrawal symptoms, chronic pancreatitis, on CIWA protocol, patient also had urinary tract infection with E. coli Completed treatment, and patient is waiting for subacute rehab placement. This morning he suddenly developed abdominal pain with mild distention with severe nausea. CT abdomen and pelvis with contrast 12/01/2020; revealed --Interval development of large multifocal fluid and gas collections which is centered in the right pararenal space there is inflammatory stranding of the right proximal ureter --Suspicious for forniceal rupture with urinoma and suspected superimposed infection --Large fluid collections are present within the upper abdomen --New moderate sized subcapsular splenic collection may reflect hematoma or abscess --Small bilateral pleural effusions and adjacent airspace consolidation May reflect atelectasis or pneumonia --Other chronic findings as seen on the CT abdomen patient Plan: --N.p.o. --IV fluids --IV antibiotics vancomycin, cefepime --Blood and urine cultures --Interventional radiologist Dr. Dugan consulted[I informed] For possible percutaneous intervention --Urologist Dr. Clarke consulted,[I informed] --ID consulted[I informed] --Mild hypotension, fluid bolus --DC Lovenox[possible hematoma on CT scan] Follow the consultants evaluations and recommendations. We will try to contact family and update patient's condition and treatment plan Will closely monitor the patient and adjust the management as needed I discussed patient's condition and plan of care in detail with the patient's nurse Ms. Mayers and the charge nurse Ms. Villanueva.. We will consider transferring the patient to [facility] for close observation I discussed with ICU charge nurse Ms. Nugent who agreed to transfer the patient to [facility] Total critical care time 50 minutes.
[2020-12-01] MEDS ORDERED: SODIUM CHLORIDE 0.9% 500 ML 500 ML ONE (17:47)
[2020-12-01] MEDS ORDERED: VANCOMYCIN 1,500 MG in SODIUM CHLORIDE 0.9% 500 ML 500 ML IV ONE (18:00)
[2020-12-01] MEDS: SODIUM CHLORIDE 0.9% 1000 ML 1,000 ML IV SCH (18:19)
[2020-12-01 19:08] LABS: Bilirubin,Urine NEG (Negative); Blood,Urine NEG (Negative); Color,Urine Yellow (Yellow); Mucus,Urine FEW /HPF; Protein,Urine <15 mg/dL mg/dL (Negative); Urobilinogen,Urine < 2.0 mg/dL (<2.0)
[2020-12-02] MEDS: CEFEPIME/NS 2 GM/100 ML 2 GM/100 ML BAG IV SCH ×3 (02:00→18:02)
[2020-12-02] MEDS: MORPHINE 2 MG/1 ML INJ IV PRN ×2 (04:38→20:20)
[2020-12-02] MEDS ORDERED: VANCOMYCIN 1,250 MG in SODIUM CHLORIDE 0.9% 250ML 250 ML IV SCH (06:00)
[2020-12-02 07:44] LABS: Hematocrit 23.1 % (35.5-45.6); Hemoglobin 7.8 gm/dl (11.8-15.2); Mean Corpuscular HGB Conc 34 % (32-34); Mean Corpuscular Volume 78 fl (84-94); Platelet Count 532 K/mm3 (140-440); Red Blood Count 2.96 M/mm3 (3.65-5.03); Red Cell Distribution Width 17.8 % (13.2-15.2)
[2020-12-02] MEDS: LORazepam 2 MG/ML VIAL IV PRN ×2 (07:47→23:05)
[2020-12-02] MEDS: SODIUM CHLORIDE 0.9% 1000 ML 1,000 ML IV SCH ×2 (07:48→23:59)
--- NOTE | 2020-12-02 08:04 | Progress Note ---
Assessment and Plan Assessment and plan: 60-year-old male patient who was initially admitted with alcohol withdrawal symptoms, chronic pancreatitis, on CIWA protocol, patient also had urinary tract infection with E. coli Completed treatment, and patient is waiting for subacute rehab placement. Yesterday patient developed abdominal pain with mild distention with severe nausea. CT abdomen and pelvis with contrast was obtained Which showed multi focal fluid and gas collection around pararenal upper abdomen and splenic area. Patient was started on IV antibiotics cefepime, vancomycin and consulted interventional radiologist who plans CT-guided, aspiration today, ID and urology consulted, --Hypokalemia/hypophosphatemia/hypomagnesemia; Current Visit: No Status: Acute; Replenished with potassium chloride, magnesium sulfate and K-Phos Closely monitor electrolytes --Multifocal fluid and gas collection[pararenal, upper abdomen, splenic area] Current Visit: No Status: Acute. CT abdomen and pelvis with contrast 12/01/2020; revealed --Interval development of large multifocal fluid and gas collections which is centered in the right pararenal space there is inflammatory stranding of the right proximal ureter --Suspicious for forniceal rupture with urinoma and suspected superimposed infection --Large fluid collections are present within the upper abdomen --New moderate sized subcapsular splenic collection may reflect hematoma or abscess --Small bilateral pleural effusions and adjacent airspace consolidation May reflect atelectasis or pneumonia --Other chronic findings as seen on the CT abdomen patient Plan: CT-guided aspiration per IR Dr. Dugan --Patient is n.p.o. --IV fluids --IV antibiotics vancomycin, cefepime --Follow blood and urine cultures --Interventional radiologist Dr. Dugan evaluation noted and appreciated For CT-guided aspiration today --Follow urologist Dr. Clarke evaluation recommendation --ID consulted .follow evaluation and recommendation --Mild hypotension, fluid bolus, pressors if no improvement --DC Lovenox[possible hematoma on CT scan] --Severe sepsis/intra-abdominal infection Current Visit: No Status: Acute. IV fluids, follow cultures, IV antibiotics ID following --Anemia; Hb today 6.9- 8.1-7.8 Current Visit: No Status: Acute. No external evidence of bleeding Possible hematoma on CT abdomen Stool for occult blood negative Received 1 unit of PRBC transfusion, --Hypophosphatemia/hypokalemia; Current Visit: No Status: Acute Monitor electrolytes --Alcohol withdrawal delirium Current Visit: No Status: Acute Symptoms significantly improved IV Ativan as needed --Acute kidney injury; Current Visit: Yes Status: Acute Vasomotor nephropathy, resolved --History of chronic ETOH abuse Current Visit: No Status: Chronic Education given to the patient advised to quit Also advised to seek alcohol rehabilitation And alcohol Anonymous support group When medically stable --Hypertension Current Visit: No Status: Chronic Moderate control continue current antihypertensives to 2 or 3 depending on --Ongoing tobacco use Current Visit: No Status: Chronic Smoking cessation counseling Strongly advised nicotine patch. --Sepsis/secondary to UTI/pancreatitis Current Visit: No Status: Acute Leukocytosis, tachycardia, lactic acidosis and UTI/pancreatitis Empiric antibiotics, follow cultures, supportive care, IV fluids Urine cultures positive for gram-negative rods Completed Zosyn. --UTI/E. coli Current Visit: No Status: Acute Completed Zosyn, currently on Vanco cefepime --Severe protein calorie malnutrition Current Visit: No Status: Acute Hypoalbuminemia , albumin 2.8 Nutrition supplements, nutrition consult and supportive care -- Metabolic acidosis Current Visit: Yes Status: Acute Plan to address problem: Secondary to uremia as well as chronic pancreatitis treat underlying etiology. --DVT prophylaxis Current Visit: Yes Status: Acute SCDs,No pharmacological anticoagulation in view of possible hematoma on CT abdomen And anemia Patient is critically ill with multiple medical problems With guarded prognosis We will closely monitor the patient and adjust the management as needed Follow consultants evaluation and recommendations I called patient's daughter, Huong Hua Could not reach her I left a message to call back to discuss about Mr. Parada's condition and treatment plan I will try to call her back again Critical care time 35 minutes We will closely monitor the patient and adjust management as needed The high probability of a clinically significant, sudden or life threatening deterioration of the [multi] system(s) required my full and direct attention, intervention and personal management. The aggregate critical care time was [35] minutes. This time is in addition to time spent performing reported procedures but includes the following: [x] Data Review and interpretation [x] Patient assessment and monitoring of vital signs [x] Documentation [x] Medication orders and management Brief history and hospital course; 60-year-old male patient was admitted with alcohol withdrawal symptoms On [facility] protocol patient has E. coli UTI completed treatment with antibiotics COVID-19 test is negative, waiting for placement however on 12/01/2020 Patient developed sudden abdominal pain, CT scan showed multiple loculated collections, sepsis IR Dr. Dugan, urology disposition Home and ID Dr. Garcia was consulted, IR is planning CT-guided aspiration Try to contact daughter Huong Hua, unable to reach left a message and requested to call back 11/20/2020; patient feels slightly better, no significant withdrawal symptoms Patient is on CIWA protocol, stable to be transferred out of IMCU to medical floor 11/21/2020; patient has severe agitation tremulousness, patient is on CIWA protocol Closely monitor withdrawal symptoms, adjust the medications as needed in the morning equal in both upper Advance diet to regular as tolerated. I called patient's mother and also patient's daughter Ms. Huong Hua at [phone] 11/22/2020; Patient continues to be agitated confused mumbling, On CIWA protocol, restraint for safety. E. coli UTI on Zosyn Called again patient's daughter next of kin Ms. Huong Hua at [phone][number obtained from welfare case worker Antonieta Gilda] Did not steel pickler the phone I left a voicemail again today to discuss about Mr. Parada's condition and treatment plan 11/23/2020 Patient continues to be agitated Resumed service 11/26/2020; Patient still has mild alcohol withdrawal symptoms On CIWA protocol More alert and awake responding appropriately Restraint for safety 11/27/2020; Patient is off CIWA protocol and restraints PT OT evaluation requested PT recommend subacute rehab DC planning per case management 11/28/2020; today patient has some mild shortness of breath and wheezing Tachycardia heart rate in 100 -110 , alert awake oriented x3 Possible fluid overload, give 1 dose of Lasix IV, checks chest x-ray Supportive care 11/29/2020; patient is more alert and awake, no shortness of breath No tremulousness or agitation, vital signs reviewed Awaiting placement to subacute/SNF DC planning per case management 11/30/2020; Anemia patient's hemoglobin dropped to 6.9 Repeat H&H hemoglobin 6.9, type and cross transfuse 1 unit PRBC Stool for occult blood, GI consult if needed 12/01/2020; stool guaiac negative Hb improved to 8.1, complains of some abdominal pain and discomfort Will check CT abdomen and pelvis Pending placementI IAdvised to quit alcohol intake CT abdomen and pelvis multifocal fluid collection IR/urology/ID were consulted, started antibiotics IR recommend CT-guided drainage 12/02/2020; CT-guided drainage pain, tried to contact and next of kin daughter Ms. Huong Hua at [phone][number obtained from welfare case worker Ms. Vo] Did not steel pickler the phone, left message to call back History Interval history: I have seen and examined the patient at the bedside in [facility] Patient's chart and medications reviewed Patient remains critically ill, mild hypotension improved with fluid bolus patient sleeping easily awakens Vital signs noted Patient is n.p.o. status for possible procedure Hospitalist Physical - Constitutional Vitals: Temp Pulse Resp BP Pulse Ox 98.8 F 90 33 H 90/58 100 12/02/20 03:39 12/01/20 21:35 12/02/20 04:00 12/01/20 21:35 12/01/20 23:02 General appearance: Present: mild distress, well-nourished, other (Sleeping easily awakens) - EENT Eyes: Present: PERRL, EOM intact - Neck Neck: Present: supple, normal ROM - Respiratory Respiratory effort: normal Respiratory: bilateral: diminished, rhonchi, negative: rales, wheezing - Cardiovascular Rhythm: regular Heart Sounds: Present: S1 & S2 - Extremities Extremities: no ischemia, No edema - Abdominal General gastrointestinal: soft, non-tender, distended (Mild) - Psychiatric Psychiatric: other (Sleeping easily awakens) - Neurologic Neurologic: moves all extremities HEART Score - HEART Score Troponin: Troponin T < 0.010 ng/mL (0.00-0.029) 11/19/20 22:51 Results - Labs CBC & Chem 7: 12/03/20 04:27 12/02/20 07:01 Labs: Laboratory Last Values WBC 20.9 K/mm3 (4.5-11.0) H 12/02/20 07:01 RBC 2.96 M/mm3 (3.65-5.03) L 12/02/20 07:01 Hgb 7.8 gm/dl (11.8-15.2) L 12/02/20 07:01 Hct 23.1 % (35.5-45.6) L 12/02/20 07:01 MCV 78 fl (84-94) L 12/02/20 07:01 MCH 26 pg (28-32) L 12/02/20 07:01 MCHC 34 % (32-34) 12/02/20 07:01 RDW 17.8 % (13.2-15.2) H 12/02/20 07:01 Plt Count 532 K/mm3 (140-440) H 12/02/20 07:01 Lymph % (Auto) 10.1 % (13.4-35.0) L 11/25/20 04:14 [place] % (Auto) 6.5 % (0.0-7.3) 11/25/20 04:14 Eos % (Auto) 0.8 % (0.0-4.3) 11/25/20 04:14 Baso % (Auto) 0.1 % (0.0-1.8) 11/25/20 04:14 Lymph # (Auto) Field Operations Supervisor 12/02/20 07:01 [place] # (Auto) 1.0 K/mm3 (0.0-0.8) H 11/25/20 04:14 Eos # (Auto) 0.1 K/mm3 (0.0-0.4) 11/25/20 04:14 Baso # (Auto) 0.0 K/mm3 (0.0-0.1) 11/25/20 04:14 Add Manual Diff Complete 11/30/20 08:40 Total Counted 100 11/30/20 08:40 Seg Neutrophils % 82.5 % (40.0-70.0) H 11/25/20 04:14 Seg Neuts % (Manual) 83.0 % (40.0-70.0) H 11/30/20 08:40 Band Neutrophils % 1.0 % 11/30/20 08:40 Lymphocytes % (Manual) 7.0 % (13.4-35.0) L 11/30/20 08:40 Reactive Lymphs % (Man) 2.0 % 11/30/20 08:40 Monocytes % (Manual) 7.0 % (0.0-7.3) 11/30/20 08:40 Eosinophils % (Manual) 1.0 % (0.0-4.3) 11/22/20 05:12 Nucleated RBC % 3.0 % (0.0-0.9) H 11/30/20 08:40 Seg Neutrophils # 12.3 K/mm3 (1.8-7.7) H 11/25/20 04:14 Seg Neutrophils # Man 9.5 K/mm3 (1.8-7.7) H 11/30/20 08:40 Band Neutrophils # 0.1 K/mm3 11/30/20 08:40 Lymphocytes # (Manual) 0.8 K/mm3 (1.2-5.4) L 11/30/20 08:40 Abs React Lymphs (Man) 0.2 K/mm3 11/30/20 08:40 Monocytes # (Manual) 0.8 K/mm3 (0.0-0.8) 11/30/20 08:40 Eosinophils # (Manual) 0.0 K/mm3 (0.0-0.4) 11/30/20 08:40 Basophils # (Manual) 0.0 K/mm3 (0.0-0.1) 11/30/20 08:40 Metamyelocytes # 0.0 K/mm3 11/30/20 08:40 Myelocytes # 0.0 K/mm3 11/30/20 08:40 Promyelocytes # 0.0 K/mm3 11/30/20 08:40 Blast Cells # 0.0 K/mm3 11/30/20 08:40 WBC Morphology Not Reportable 11/30/20 08:40 WBC Morphology TNR 11/30/20 08:40 Hypersegmented Neuts Not Reportable 11/30/20 08:40 Hyposegmented Neuts Not Reportable 11/30/20 08:40 Hypogranular Neuts Not Reportable 11/30/20 08:40 Smudge Cells Not Reportable 11/30/20 08:40 Toxic Granulation Not Reportable 11/30/20 08:40 Toxic Vacuolation Not Reportable 11/30/20 08:40 Dohle Bodies Not Reportable 11/30/20 08:40 Pelger-Huet Anomaly Not Reportable 11/30/20 08:40 Aiden Rods Not Reportable 11/30/20 08:40 Platelet Estimate Consistent w auto 11/30/20 08:40 Clumped Platelets Not Reportable 11/30/20 08:40 Plt Clumps, EDTA Not Reportable 11/30/20 08:40 Large Platelets Not Reportable 11/30/20 08:40 Giant Platelets Not Reportable 11/30/20 08:40 Platelet Satelliting Not Reportable 11/30/20 08:40 Plt Morphology Comment Not Reportable 11/30/20 08:40 RBC Morphology Not Reportable 11/30/20 08:40 Dimorphic RBCs Not Reportable 11/30/20 08:40 Polychromasia Not Reportable 11/30/20 08:40 Hypochromasia Not Reportable 11/30/20 08:40 Poikilocytosis Not Reportable 11/30/20 08:40 Anisocytosis Not Reportable 11/30/20 08:40 Microcytosis Not Reportable 11/30/20 08:40 Macrocytosis Not Reportable 11/30/20 08:40 Spherocytes Few 11/30/20 08:40 Pappenheimer Bodies Not Reportable 11/30/20 08:40 Sickle Cells Not Reportable 11/30/20 08:40 Target Cells 2+ 11/30/20 08:40 Tear Drop Cells Few 11/30/20 08:40 Ovalocytes Not Reportable 11/30/20 08:40 Helmet Cells Not Reportable 11/30/20 08:40 Lux-[place] Bodies Not Reportable 11/30/20 08:40 [place] Rings Not Reportable 11/30/20 08:40 Stevie Cells Not Reportable 11/30/20 08:40 Bite Cells Not Reportable 11/30/20 08:40 Crenated Cell Not Reportable 11/30/20 08:40 Elliptocytes Not Reportable 11/30/20 08:40 Acanthocytes (Spur) Not Reportable 11/30/20 08:40 Rouleaux Not Reportable 11/30/20 08:40 Hemoglobin C Crystals Not Reportable 11/30/20 08:40 Schistocytes Not Reportable 11/30/20 08:40 Malaria parasites Not Reportable 11/30/20 08:40 Florin Bodies Not Reportable 11/30/20 08:40 Hem Pathologist Commnt No 11/30/20 08:40 PT 15.8 Sec. (12.2-14.9) H 12/01/20 05:53 INR 1.21 (0.87-1.13) H 12/01/20 05:53 APTT 33.7 Sec. (24.2-36.6) 12/01/20 05:53 D-Dimer 1767.06 ng/mlDDU (0-234) H 11/19/20 16:44 ABG pH 7.454 (7.320-7.450) H 11/28/20 17:47 POC ABG pCO2 25.8 mmHg (32.0-48.0) L 11/28/20 17:47 POC ABG pO2 65.5 mmHg (83-108) L 11/28/20 17:47 POC ABG HCO3 17.7 11/28/20 17:47 ABG O2 Saturation 94.3 (0-100) 11/28/20 17:47 POC ABG Base Excess -5.5 11/28/20 17:47 ABG Hemoglobin 7.0 (12.0-17.5) L 11/28/20 17:47 ABG Oxyhemoglobin 92.2 (94-98) L 11/28/20 17:47 ABG Methemoglobin 0.3 (0.0-1.5) 11/28/20 17:47 ABG Sodium 143.6 mmol/L (136.0-145.0) 11/28/20 17:47 ABG Potassium 3.6 mmol/L (3.40-4.50) 11/28/20 17:47 ABG Chloride 117.0 mmol/L (98-107) H 11/28/20 17:47 ABG Glucose 104 mg/dL (65-95) H 11/28/20 17:47 Carboxyhemoglobin 1.9 (0.5-1.5) H 11/28/20 17:47 FiO2 % 21.0 11/28/20 17:47 Sodium 141 mmol/L (137-145) 12/01/20 05:53 Potassium 3.6 mmol/L (3.6-5.0) 12/01/20 05:53 Chloride 106.5 mmol/L (98-107) 12/01/20 05:53 Carbon Dioxide 23 mmol/L (22-30) 12/01/20 05:53 Anion Gap 15 mmol/L 12/01/20 05:53 BUN 14 mg/dL (9-20) 12/01/20 05:53 Creatinine 0.8 mg/dL (0.8-1.3) 12/01/20 05:53 Estimated GFR > 60 ml/min 12/01/20 05:53 BUN/Creatinine Ratio 18 % 12/01/20 05:53 Glucose 85 mg/dL (75-100) 12/01/20 05:53 POC Glucose 94 mg/dL (70-105) 12/01/20 17:21 Lactic Acid 3.10 mmol/L (0.7-2.0) H* 11/19/20 18:28 Calcium 7.7 mg/dL (8.4-10.2) L 12/01/20 05:53 Phosphorus 2.20 mg/dL (2.5-4.5) L 11/30/20 08:40 Magnesium 1.70 mg/dL (1.7-2.3) 11/30/20 08:40 Total Bilirubin 0.40 mg/dL (0.1-1.2) 12/01/20 05:53 Direct Bilirubin 0.2 mg/dL (0-0.2) 11/19/20 16:44 Indirect Bilirubin 0.3 mg/dL 11/19/20 16:44 AST 14 units/L (5-40) 12/01/20 05:53 ALT 10 units/L (7-56) 12/01/20 05:53 Alkaline Phosphatase 131 units/L (35-129) H 12/01/20 05:53 Total Creatine Kinase 26 units/L (55-170) L 11/19/20 16:44 CK-MB (CK-2) < 1.0 ng/mL (0.0-4.0) 11/19/20 16:44 CK-MB (CK-2) Rel Index 3.8 (0-4) 11/19/20 16:44 Troponin T < 0.010 ng/mL (0.00-0.029) 11/19/20 22:51 NT-Pro-B Natriuret Pep 454.0 pg/mL (0-900) 11/19/20 16:44 Total Protein 5.0 g/dL (6.3-8.2) L 12/01/20 05:53 Albumin 2.2 g/dL (3.9-5) L 12/01/20 05:53 Albumin/Globulin Ratio 0.8 % 12/01/20 05:53 Lipase 67 units/L (13-60) H 11/20/20 07:58 Arterial Blood Glucose 104 mg/dL (65-95) H 11/28/20 17:47 Arterial Blood Ionized Calcium 4.5 mg/dL (4.6-5.3) L 11/28/20 17:47 Urine Color Yellow (Yellow) 12/01/20 18:45 Urine Turbidity Clear (Clear) 12/01/20 18:45 Urine pH 6.0 (5.0-7.0) 12/01/20 18:45 Ur Specific [place] 1.036 (1.003-1.030) H 12/01/20 18:45 Urine Protein <15 mg/dl mg/dL (Negative) 12/01/20 18:45 Urine Glucose (UA) Neg mg/dL (Negative) 12/01/20 18:45 Urine Ketones Neg mg/dL (Negative) 12/01/20 18:45 Urine Blood Neg (Negative) 12/01/20 18:45 Urine Nitrite Neg (Negative) 12/01/20 18:45 Urine Bilirubin Neg (Negative) 12/01/20 18:45 Urine Urobilinogen < 2.0 mg/dL (<2.0) 12/01/20 18:45 Ur Leukocyte Esterase Tr (Negative) 12/01/20 18:45 Urine WBC (Auto) 3.0 /HPF (0.0-6.0) 12/01/20 18:45 Urine RBC (Auto) 1.0 /HPF (0.0-6.0) 12/01/20 18:45 U Epithel Cells (Auto) < 1.0 /HPF (0-13.0) 12/01/20 18:45 Urine Bacteria (Auto) 1+ /HPF (Negative) 11/19/20 19:18 Hyaline Casts 1 /LPF 11/19/20 19:18 Urine Mucus Few /HPF 12/01/20 18:45 Nasal Screen MRSA (PCR) Negative (Negative) 11/20/20 Unknown Urine Opiates Screen Negative 11/19/20 19:18 Urine Methadone Screen Negative 11/19/20 19:18 Ur Barbiturates Screen Negative 11/19/20 19:18 Ur Phencyclidine Scrn Negative 11/19/20 19:18 Ur Amphetamines Screen Negative 11/19/20 19:18 U Benzodiazepines Scrn Negative 11/19/20 19:18 Urine Cocaine Screen Negative 11/19/20 19:18 U Marijuana (THC) Screen Negative 11/19/20 19:18 Drugs of Abuse Note Disclamer 11/19/20 19:18 Coronavirus (PCR) Negative (Negative) 11/27/20 08:45 Blood Type O POSITIVE 11/30/20 15:00 Antibody Screen Negative 11/30/20 15:00 Crossmatch See Detail 11/30/20 15:00 Microbiology: Microbiology 12/01/20 18:46 Peripheral/Venous Blood Culture - Preliminary Culture in Progress 12/01/20 18:46 Peripheral/Venous Blood Culture - Preliminary Culture in Progress 11/30/20 02:23 Stool Stool Occult Blood (LUCERO) - Final Viramontes/IV: Voiding Method Condom Catheter Active Medications - Current Medications Current Medications: Generic Name Dose Route Start Last Admin Trade Name Freq PRN Reason Stop Dose Admin Acetaminophen 650 mg 11/20/20 14:00 12/01/20 20:24 Acetaminophen 325 Mg Tab PO 650 mg Q6H PRN Administration Pain, Mild (1-3) Albuterol 2.5 mg 11/30/20 12:00 Albuterol 2.5 Mg/3 Ml Nebu IH Q4HRT PRN Shortness Of Breath Folic Acid 1 mg 11/20/20 10:00 12/01/20 11:08 Folic Acid 1 Mg Tab PO 1 mg QDAY JANNETH Administration Hydralazine HCl 10 mg 11/19/20 18:18 Hydralazine 20 Mg/1 Ml Inj IV Q4HR PRN Hypertension Cefepime HCl 2 gm in 100 mls @ 200 mls/hr 12/01/20 17:00 12/02/20 02:31 Cefepime/Ns 2 Gm/100 Ml IV Infused Q8H JANNETH Infusion Protocol Vancomycin HCl 1,250 mg/ 275 mls @ 166.667 mls/hr 12/02/20 06:00 Sodium Chloride IV Q12H JANNETH Sodium Chloride 1,000 mls @ 100 mls/hr 12/01/20 18:15 12/02/20 07:48 Nacl 0.9% 1000 Ml IV 100 mls/hr DIRECT JANNETH Administration Lorazepam 2 mg 11/27/20 12:30 12/02/20 07:47 Lorazepam 2 Mg/Ml Vial IV 2 mg Q4H PRN Administration Agitation Losartan Potassium 100 mg 11/20/20 10:00 12/01/20 11:08 Losartan 50 Mg Tab PO 100 mg QDAY JANNETH Administration Metoprolol Tartrate 12.5 mg 11/28/20 22:00 12/01/20 21:35 Metoprolol Tartrate 25 Mg Tab PO Not Given BID JANNETH Morphine Sulfate 2 mg 11/20/20 10:30 12/02/20 04:38 Morphine 2 Mg/1 Ml Inj IV 2 mg Q6H PRN Administration Pain, Moderate (4-6) Ondansetron HCl 4 mg 11/19/20 18:11 11/30/20 18:37 Ondansetron 4 Mg/2 Ml Inj IV 4 mg Q8H PRN Administration Nausea And Vomiting Sodium Bicarbonate 1,300 mg 11/29/20 20:00 12/01/20 20:27 Sodium Bicarbonate 650 Mg Tab PO 1,300 mg TID JANNETH Administration Sodium Chloride 10 ml 11/19/20 22:00 12/01/20 22:00 Sodium Chloride 0.9% 10 Ml Flush Syringe IV 10 ml BID JANNETH Administration Sodium Chloride 10 ml 11/19/20 19:11 11/30/20 18:37 Sodium Chloride 0.9% 10 Ml Flush Syringe IV 10 ml PRN PRN Administration LINE FLUSH Nutrition/Malnutrition Assess - Dietary Evaluation Nutrition/Malnutrition Findings: Nutrition Notes Start: 11/20/20 12:00 Freq: Status: Active Protocol: Document 11/29/20 11:46 CW (Rec: 11/29/20 11:51 CW [id number]) Nutrition Notes Initial or Follow up Reassessment Current Diagnosis Sepsis,Hypertension, Hyperlipidemia Other Pertinent Diagnosis Acute alcoholic pancreatitis, EtOH withdrawal delirium, ARF, GERD Current Diet Regular Labs/Tests 11/28 Na 147 Pertinent Medications lasix D5 1/2 NS at 150 ml/hr Height 5 ft 10 in Weight 86.8 kg Diggs Body Weight (kg) 75.45 BMI 27.4 Weight change and time frame will monitor for weight trend. weight change may be related to fluid Weight Status Overweight Subjective/Other Information F/U for intakes and need for ONS. Lunch observed at beside. Pt consumed <25% of meal. Pt reports ususally eating a bit of fruit at meals. Encouraged pt to drink ONS. Per order, pt is vegetarian, diet order altered to highlight this fact . Emphasized importance of drinking ONS. No ONS observed in room; will restart and monitor for ONS build up. Percent of energy/protein needs met: neglible Burn Absent Trauma Absent Current % PO Negligible Minimum of two criteria No Energy Intake (severe) < or equal to 50% Estimated Energy Requirement > or equal to 5 days #2 Nutrition Diagnosis Inadequate oral intake Diagnosis Progress(for reassessment Continues documentation) Is patient on ventilator? No Is Patient Ambulatory and/or Out of Bed No REE-([place]-St. Jeor-confined to bed) Calculation Used for Recommendations [facility] Additional Notes Pro needs 1-1.2g/k-98g/ day Fluid needs 1ml/kcal Nutrition Intervention Change Diet Order: Change diet to vegetarian diet Add Supplement/Snack (indicate name/kcal Ensure Enlive BID /protein ) Provides kCal: 700 Provides Protein (gm) 40 Goal #1 Meet 75% of energy and protein needs Anticipated Discharge Needs: CHO-controlled, low fat diet Follow-Up By: 12/03/20 Additional Comments F/U for intakes and need for ONS
[2020-12-02 08:21] LABS: Alanine Aminotransferase 7 units/L (7-56); Albumin 1.8 g/dL (3.9-5); Blood Urea Nitrogen 11 mg/dL (9-20); Calcium 7.7 mg/dL (8.4-10.2); Hemolysis Index 4
[2020-12-02 08:31] LABS: BUN/Creatinine Ratio 16
--- NOTE | 2020-12-02 09:23 | XRay Report ---
CHEST 1 VIEW 12/02/2020 8:55 AM INDICATION / CLINICAL INFORMATION: f/u pleural effusion. COMPARISON: 11/28/2020 FINDINGS: SUPPORT DEVICES: None. HEART / MEDIASTINUM: Stable. LUNGS / PLEURA: Persistent bibasilar linear atelectasis. Small suspected pleural effusions bilaterall y persist. No pneumothorax. ADDITIONAL FINDINGS: No significant additional findings. IMPRESSION: 1. No significant interval change since 03/30/2021. Signer Name: Edmund Giang MD Signed: 12/02/2020 9:18 AM Workstation Name: [id number]
[2020-12-02] MEDS ORDERED: MAGNESIUM SULFATE 4 GM/100 ML BAG IV ONE (09:30)
[2020-12-02] MEDS: SODIUM BICARBONATE 650 MG TAB PO SCH ×3 (09:41→19:45)
[2020-12-02] MEDS: LOSARTAN 50 MG TAB PO SCH (09:41)
[2020-12-02] MEDS: METOPROLOL TARTRATE 25 MG TAB PO SCH ×2 (09:42→22:28)
[2020-12-02] MEDS: FOLIC ACID 1 MG TAB PO SCH (09:42)
[2020-12-02] MEDS: PANTOPRAZOLE 40 MG INJ IV SCH (09:42)
[2020-12-02] MEDS: POTASSIUM CHLORIDE 10 MEQ 10 MEQ/100 ML BAG IV SCH ×4 (09:43→15:00)
[2020-12-02] MEDS ORDERED: POTASSIUM PHOSPHATE 30 MMOL in SODIUM CHLORIDE 0.9% 500 ML 500 ML IV ONE (10:00)
--- NOTE | 2020-12-02 10:12 | Short Stay Summary ---
Short Stay Documentation Date of service: 12/02/20 - History H&P: obtained from office Past Medical History: GERD, hypertension, hyperlipidemia, liver disease, no atrial fib, no arrhythmia, no anemia, no CAD, no cancer, no COPD, no diabetes, no dialysis, no DVT, no ESRD, no heart failure, no hepatitis, no HIV/AIDS, no hyperthyroidism, no hypothyroidism, no migraines, no PVD, no pulmonary embolism, no renal failure, no seizures, no stroke, no sarcoidosis Past Surgical History: No surgical history, Other (Scrotal lesion) Social history: lives with family, smoking, alcohol abuse - Allergies and Medications Current Medications: Allergies No Known Allergies Allergy (Verified 10/25/19 12:42) Home Medications Medication Instructions Recorded Confirmed Last Taken Type Folic Acid [Folvite] 1 mg PO QDAY #30 tablet 10/27/19 11/20/20 11/18/20 Rx Colchicine 0.6 mg PO TID 11/20/20 11/20/20 Unknown History Cyanocobalamin (Vitamin B-12) 100 mcg PO QDAY 11/20/20 11/20/20 11/18/20 History Hydrochlorothiazide 12.5 mg PO QDAY 11/20/20 11/20/20 11/18/20 History Lipase/Protease/Amylase [Creon Dr 1 cap PO TID 11/20/20 11/20/20 11/18/20 History 6,000 Units] Losartan Potassium 100 mg PO QDAY 11/20/20 11/20/20 11/18/20 History Meloxicam 15 mg PO DAILY 11/20/20 11/20/20 11/18/20 History Pantoprazole [Protonix TAB] 40 mg PO DAILY 11/20/20 11/20/20 11/18/20 History Potassium Gluconate [Potassium] 595 mg PO QDAY 11/20/20 11/20/20 11/18/20 History allopurinoL [Zyloprim] 300 mg PO DAILY 11/20/20 11/20/20 11/18/20 History amLODIPine 10 mg PO DAILY 11/20/20 11/20/20 11/18/20 11:00 History Active Medications Acetaminophen (Acetaminophen 325 Mg Tab) 650 mg PO Q6H PRN PRN Reason: Pain, Mild (1-3) Last Admin: 12/01/20 20:24 Dose: 650 mg Documented by: Albuterol (Albuterol 2.5 Mg/3 Ml Nebu) 2.5 mg IH Q4HRT PRN PRN Reason: Shortness Of Breath Folic Acid (Folic Acid 1 Mg Tab) 1 mg PO QDAY [facility] Last Admin: 12/02/20 09:42 Dose: Not Given Documented by: Hydralazine HCl (Hydralazine 20 Mg/1 Ml Inj) 10 mg IV Q4HR PRN PRN Reason: Hypertension Cefepime HCl (Cefepime/Ns 2 Gm/100 Ml) 2 gm in 100 mls @ 200 mls/hr IV Q8H [facility]; Protocol Last Admin: 12/02/20 09:52 Dose: 200 mls/hr Documented by: Vancomycin HCl 1,250 mg/ (Sodium Chloride) 275 mls @ 166.667 mls/hr IV Q12H [facility] Sodium Chloride (Nacl 0.9% 1000 Ml) 1,000 mls @ 100 mls/hr IV DIRECT [facility] Last Admin: 12/02/20 07:48 Dose: 100 mls/hr Documented by: Potassium Chloride (Kcl 10meq/100ml) 10 meq in 100 mls @ 100 mls/hr IV Q1H [facility] Stop: 12/02/20 12:59 Last Admin: 12/02/20 09:43 Dose: 100 mls/hr Documented by: Magnesium Sulfate (Magnesium Sulfate 4gm/100ml) 4 gm in 100 mls @ 25 mls/hr IV ONCE ONE Stop: 12/02/20 13:29 Last Admin: 12/02/20 09:42 Dose: 25 mls/hr Documented by: Potassium Phosphate 30 mmol/ (Sodium Chloride) 510 mls @ 83 mls/hr IV ONCE ONE Stop: 12/02/20 16:08 Last Admin: 12/02/20 09:42 Dose: 83 mls/hr Documented by: Lorazepam (Lorazepam 2 Mg/Ml Vial) 2 mg IV Q4H PRN PRN Reason: Agitation Last Admin: 12/02/20 07:47 Dose: 2 mg Documented by: Losartan Potassium (Losartan 50 Mg Tab) 100 mg PO QDAY [facility] Last Admin: 12/02/20 09:41 Dose: Not Given Documented by: Metoprolol Tartrate (Metoprolol Tartrate 25 Mg Tab) 12.5 mg PO BID [facility] Last Admin: 12/02/20 09:42 Dose: Not Given Documented by: Morphine Sulfate (Morphine 2 Mg/1 Ml Inj) 2 mg IV Q6H PRN PRN Reason: Pain, Moderate (4-6) Last Admin: 12/02/20 04:38 Dose: 2 mg Documented by: Ondansetron HCl (Ondansetron 4 Mg/2 Ml Inj) 4 mg IV Q8H PRN PRN Reason: Nausea And Vomiting Last Admin: 11/30/20 18:37 Dose: 4 mg Documented by: Pantoprazole Sodium (Pantoprazole 40 Mg Inj) 40 mg IV QDAY [facility] Last Admin: 12/02/20 09:42 Dose: Not Given Documented by: Sodium Bicarbonate (Sodium Bicarbonate 650 Mg Tab) 1,300 mg PO TID [facility] Last Admin: 12/02/20 09:41 Dose: Not Given Documented by: Sodium Chloride (Sodium Chloride 0.9% 10 Ml Flush Syringe) 10 ml IV BID [facility] Last Admin: 12/02/20 09:43 Dose: 10 ml Documented by: Sodium Chloride (Sodium Chloride 0.9% 10 Ml Flush Syringe) 10 ml IV PRN PRN PRN Reason: LINE FLUSH Last Admin: 11/30/20 18:37 Dose: 10 ml Documented by: - Physical exam Breasts: normal Extremities: no ischemia, No edema - Brief post op/procedure progress note Date of procedure: 12/02/20 Pre-op diagnosis: bladder tumor Post-op diagnosis: same Procedure: cysto, bladder bx and fulgeration x 3, tur bladder neck Anesthesia: GETA Surgeon: RENA YANES Estimated blood loss: minimal Pathology: list (bladder bx x 3) Specimen disposition: to lab Condition: stable - Hospital course Hospital course: macrobid & norco -erx done(copy on chart) - Disposition Condition at discharge: Stable Disposition: DC-01 TO HOME OR SELFCARE Short Stay Discharge Plan Follow up with: PRIMARY CARE,MD [Primary Care Provider] - 3-5 Days
[2020-12-02 10:32] LABS: Anisocytosis 1+; Band Neutrophils # (Manual) 4.2 K/mm3; Hypochromasia 1+; Myelocytes # (Manual) 0.4 K/mm3; Platelet Estimate Consistent w Auto; Target Cells 1+; Total Cells Counted 100
[2020-12-02] MEDS ORDERED: MIDAZOLAM 5 MG/5 ML INJ MDV IV ONE (11:24)
[2020-12-02] MEDS ORDERED: fentaNYL 100 MCG/2 ML INJ IV ONE (11:24)
[2020-12-02] MEDS ORDERED: SODIUM CHLORIDE 0.9% 500 ML 500 ML ONE (11:34)
--- NOTE | 2020-12-02 12:27 | Progress Note ---
Assessment and Plan left flank tenderness for perc drainage Subjective Date of service: 12/02/20 Principal diagnosis: EtOH dependence Objective - Constitutional Vitals: Vital Signs - 12hr 12/02/20 12/02/20 12/02/20 03:39 04:00 08:00 Temperature 98.8 F 97.9 F Pulse Rate Respiratory 33 H 33 H Rate O2 Sat by Pulse Oximetry 12/02/20 12/02/20 09:03 10:00 Temperature Pulse Rate 92 H Respiratory Rate O2 Sat by Pulse 93 Oximetry General appearance: Present: mild distress - Respiratory Respiratory effort: normal Extremities: no ischemia - Gastrointestinal General gastrointestinal: Present: tender - Labs CBC & Chem 7: 12/02/20 07:01 12/02/20 07:01 Labs: Abnormal lab results 12/01/20 12/02/20 12/02/20 Range/Units 18:45 07:01 07:01 WBC 20.9 H (4.5-11.0) K/mm3 RBC 2.96 L (3.65-5.03) M/mm3 Hgb 7.8 L (11.8-15.2) gm/dl Hct 23.1 L (35.5-45.6) % MCV 78 L (84-94) fl MCH 26 L (28-32) pg RDW 17.8 H (13.2-15.2) % Plt Count 532 H (140-440) K/mm3 Lymphocytes % (Manual) 7.0 L (13.4-35.0) % Monocytes % (Manual) 10.0 H (0.0-7.3) % Nucleated RBC % 4.0 H (0.0-0.9) % Seg Neutrophils # Man 11.9 H (1.8-7.7) K/mm3 Monocytes # (Manual) 2.1 H (0.0-0.8) K/mm3 Potassium 3.3 L (3.6-5.0) mmol/L Creatinine 0.7 L (0.8-1.3) mg/dL Calcium 7.7 L (8.4-10.2) mg/dL Phosphorus 2.20 L (2.5-4.5) mg/dL Magnesium 1.40 L (1.7-2.3) mg/dL Total Protein 5.5 L (6.3-8.2) g/dL Albumin 1.8 L (3.9-5) g/dL Ur Specific [place] 1.036 H (1.003-1.030) Medications & Allergies - Medications Allergies/Adverse Reactions: Allergies No Known Allergies Allergy (Verified 10/25/19 12:42) Home Medications: Home Medications Medication Instructions Recorded Confirmed Last Taken Type Folic Acid [Folvite] 1 mg PO QDAY #30 tablet 10/27/19 11/20/20 11/18/20 Rx Colchicine 0.6 mg PO TID 11/20/20 11/20/20 Unknown History Cyanocobalamin (Vitamin B-12) 100 mcg PO QDAY 11/20/20 11/20/20 11/18/20 History Hydrochlorothiazide 12.5 mg PO QDAY 11/20/20 11/20/20 11/18/20 History Lipase/Protease/Amylase [Creon Dr 1 cap PO TID 11/20/20 11/20/20 11/18/20 History 6,000 Units] Losartan Potassium 100 mg PO QDAY 11/20/20 11/20/20 11/18/20 History Meloxicam 15 mg PO DAILY 11/20/20 11/20/20 11/18/20 History Pantoprazole [Protonix TAB] 40 mg PO DAILY 11/20/20 11/20/20 11/18/20 History Potassium Gluconate [Potassium] 595 mg PO QDAY 11/20/20 11/20/20 11/18/20 History allopurinoL [Zyloprim] 300 mg PO DAILY 11/20/20 11/20/20 11/18/20 History amLODIPine 10 mg PO DAILY 11/20/20 11/20/20 11/18/20 11:00 History Active Medications: Generic Name Dose Route Start Last Admin Trade Name Freq PRN Reason Stop Dose Admin Acetaminophen 650 mg 11/20/20 14:00 12/01/20 20:24 Acetaminophen 325 Mg Tab PO 650 mg Q6H PRN Administration Pain, Mild (1-3) Albuterol 2.5 mg 11/30/20 12:00 Albuterol 2.5 Mg/3 Ml Nebu IH Q4HRT PRN Shortness Of Breath Folic Acid 1 mg 11/20/20 10:00 12/02/20 09:42 Folic Acid 1 Mg Tab PO Not Given QDAY [facility] Hydralazine HCl 10 mg 11/19/20 18:18 Hydralazine 20 Mg/1 Ml Inj IV Q4HR PRN Hypertension Cefepime HCl 2 gm in 100 mls @ 200 mls/hr 12/01/20 17:00 12/02/20 09:52 Cefepime/Ns 2 Gm/100 Ml IV 200 mls/hr Q8H [facility] Administration Protocol Vancomycin HCl 1,250 mg/ 275 mls @ 166.667 mls/hr 12/02/20 06:00 Sodium Chloride IV Q12H [facility] Sodium Chloride 1,000 mls @ 100 mls/hr 12/01/20 18:15 12/02/20 07:48 Nacl 0.9% 1000 Ml IV 100 mls/hr DIRECT [facility] Administration Potassium Chloride 10 meq in 100 mls @ 100 mls/hr 12/02/20 09:00 12/02/20 10:34 Kcl 10meq/100ml IV 12/02/20 12:59 100 mls/hr Q1H [facility] Administration Magnesium Sulfate 4 gm in 100 mls @ 25 mls/hr 12/02/20 09:30 12/02/20 09:42 Magnesium Sulfate 4gm/100ml IV 12/02/20 13:29 25 mls/hr ONCE ONE Administration Potassium Phosphate 30 mmol/ 510 mls @ 83 mls/hr 12/02/20 10:00 12/02/20 09:42 Sodium Chloride IV 12/02/20 16:08 83 mls/hr ONCE ONE Administration Lorazepam 2 mg 11/27/20 12:30 12/02/20 07:47 Lorazepam 2 Mg/Ml Vial IV 2 mg Q4H PRN Administration Agitation Losartan Potassium 100 mg 11/20/20 10:00 12/02/20 09:41 Losartan 50 Mg Tab PO Not Given QDAY [facility] Metoprolol Tartrate 12.5 mg 11/28/20 22:00 12/02/20 09:42 Metoprolol Tartrate 25 Mg Tab PO Not Given BID [facility] Morphine Sulfate 2 mg 11/20/20 10:30 12/02/20 04:38 Morphine 2 Mg/1 Ml Inj IV 2 mg Q6H PRN Administration Pain, Moderate (4-6) Ondansetron HCl 4 mg 11/19/20 18:11 11/30/20 18:37 Ondansetron 4 Mg/2 Ml Inj IV 4 mg Q8H PRN Administration Nausea And Vomiting Pantoprazole Sodium 40 mg 12/02/20 10:00 12/02/20 09:42 Pantoprazole 40 Mg Inj IV Not Given QDAY [facility] Sodium Bicarbonate 1,300 mg 11/29/20 20:00 12/02/20 09:41 Sodium Bicarbonate 650 Mg Tab PO Not Given TID [facility] Sodium Chloride 10 ml 11/19/20 22:00 12/02/20 09:43 Sodium Chloride 0.9% 10 Ml Flush Syringe IV 10 ml BID [facility] Administration Sodium Chloride 10 ml 11/19/20 19:11 11/30/20 18:37 Sodium Chloride 0.9% 10 Ml Flush Syringe IV 10 ml PRN PRN Administration LINE FLUSH HEART Score - HEART Score Troponin: Troponin T < 0.010 ng/mL (0.00-0.029) 11/19/20 22:51
--- NOTE | 2020-12-02 12:33 | Consultation ---
History of Present Illness - Reason for Consult Consult date: 12/02/20 Sepsis, intra-abdominal collection Requesting physician: ELISEO STRAUSS - History of Present Illness The patient is a 60-year-old male with gastroesophageal reflux disease, hypertension, hyperlipidemia, alcohol abuse admitted to the hospital on 11/19/2020 with abdominal pain from suspected pancreatitis and alcohol withdrawal. Was found to have a UTI, treated with Zosyn. His initial CT abdomen without contrast on 11/19/2020 had revealed acute inflammatory changes in both pararenal spaces, more prominent on the right side in addition to chronic pancreatitis. Later, patient developed abdominal pain with distention and nausea. CT scan of the abdomen and pelvis with contrast done on 12/01/2020 revealed small bilateral pleural effusions with bilateral airspace consolidations versus atelectasis, evidence of chronic pancreatitis and interval development of large multifocal fluid and gas collections in the right pararenal space, moderate-sized subcapsular splenic collection. Infectious diseases was consulted for additional evaluation. Patient otherwise afebrile. Urology and IR were consulted, plan for CT-guided aspiration. Review of Systems: General: no fevers,chills or rigors HEENT: no new visual disturbance Respiratory: No cough, sputum, hemoptysis or shortness of breath Cardiovascular: No chest pain, syncope Gastrointestinal: nausea, abdominal pain Genitourinary: No dysuria or hematuria Musculoskeletal: No new or worsening neck pain or back pain Neurologic: No headaches, seizures Hematologic: No easy bruising or bleeding Endocrine: No night sweats or acute weight loss Skin: negative for rash, jaundice Psychiatric: No suicidal or homicidal ideation Past History Past Medical History: GERD, hypertension, hyperlipidemia, liver disease. denies: atrial fib, arrhythmia, anemia, CAD, cancer, COPD, diabetes, dialysis, DVT, ESRD, heart failure, hepatitis, HIV/AIDS, hyperthyroidism, hypothyroidism, migraines, PVD, pulmonary embolism, renal failure, seizures, stroke, sarcoidosis Past Surgical History: No surgical history, Other (Scrotal lesion) Social history: lives with family, smoking, alcohol abuse Family history: no significant family history Medications and Allergies Allergies Allergy/AdvReac Type Severity Reaction Status Date / Time No Known Allergies Allergy Verified 10/25/19 12:42 Home Medications Medication Instructions Recorded Confirmed Last Taken Type Folic Acid [Folvite] 1 mg PO QDAY #30 tablet 10/27/19 11/20/20 11/18/20 Rx Colchicine 0.6 mg PO TID 11/20/20 11/20/20 Unknown History Cyanocobalamin (Vitamin B-12) 100 mcg PO QDAY 11/20/20 11/20/20 11/18/20 History Hydrochlorothiazide 12.5 mg PO QDAY 11/20/20 11/20/20 11/18/20 History Lipase/Protease/Amylase [Karen Dr 1 cap PO TID 11/20/20 11/20/20 11/18/20 History 6,000 Units] Losartan Potassium 100 mg PO QDAY 11/20/20 11/20/20 11/18/20 History Meloxicam 15 mg PO DAILY 11/20/20 11/20/20 11/18/20 History Pantoprazole [Protonix TAB] 40 mg PO DAILY 11/20/20 11/20/20 11/18/20 History Potassium Gluconate [Potassium] 595 mg PO QDAY 11/20/20 11/20/20 11/18/20 History allopurinoL [Zyloprim] 300 mg PO DAILY 11/20/20 11/20/20 11/18/20 History amLODIPine 10 mg PO DAILY 11/20/20 11/20/20 11/18/20 11:00 History Active Meds: Active Medications Acetaminophen (Acetaminophen 325 Mg Tab) 650 mg PO Q6H PRN PRN Reason: Pain, Mild (1-3) Last Admin: 12/01/20 20:24 Dose: 650 mg Documented by: Albuterol (Albuterol 2.5 Mg/3 Ml Nebu) 2.5 mg IH Q4HRT PRN PRN Reason: Shortness Of Breath Folic Acid (Folic Acid 1 Mg Tab) 1 mg PO QDAY [facility] Last Admin: 12/02/20 09:42 Dose: Not Given Documented by: Hydralazine HCl (Hydralazine 20 Mg/1 Ml Inj) 10 mg IV Q4HR PRN PRN Reason: Hypertension Cefepime HCl (Cefepime/Ns 2 Gm/100 Ml) 2 gm in 100 mls @ 200 mls/hr IV Q8H [facility]; Protocol Last Admin: 12/02/20 09:52 Dose: 200 mls/hr Documented by: Vancomycin HCl 1,250 mg/ (Sodium Chloride) 275 mls @ 166.667 mls/hr IV Q12H [facility] Sodium Chloride (Nacl 0.9% 1000 Ml) 1,000 mls @ 100 mls/hr IV DIRECT [facility] Last Admin: 12/02/20 07:48 Dose: 100 mls/hr Documented by: Potassium Chloride (Kcl 10meq/100ml) 10 meq in 100 mls @ 100 mls/hr IV Q1H [facility] Stop: 12/02/20 12:59 Last Admin: 12/02/20 10:34 Dose: 100 mls/hr Documented by: Magnesium Sulfate (Magnesium Sulfate 4gm/100ml) 4 gm in 100 mls @ 25 mls/hr IV ONCE ONE Stop: 12/02/20 13:29 Last Admin: 12/02/20 09:42 Dose: 25 mls/hr Documented by: Potassium Phosphate 30 mmol/ (Sodium Chloride) 510 mls @ 83 mls/hr IV ONCE ONE Stop: 12/02/20 16:08 Last Admin: 12/02/20 09:42 Dose: 83 mls/hr Documented by: Lorazepam (Lorazepam 2 Mg/Ml Vial) 2 mg IV Q4H PRN PRN Reason: Agitation Last Admin: 12/02/20 07:47 Dose: 2 mg Documented by: Losartan Potassium (Losartan 50 Mg Tab) 100 mg PO QDAY [facility] Last Admin: 12/02/20 09:41 Dose: Not Given Documented by: Metoprolol Tartrate (Metoprolol Tartrate 25 Mg Tab) 12.5 mg PO BID [facility] Last Admin: 12/02/20 09:42 Dose: Not Given Documented by: Morphine Sulfate (Morphine 2 Mg/1 Ml Inj) 2 mg IV Q6H PRN PRN Reason: Pain, Moderate (4-6) Last Admin: 12/02/20 04:38 Dose: 2 mg Documented by: Ondansetron HCl (Ondansetron 4 Mg/2 Ml Inj) 4 mg IV Q8H PRN PRN Reason: Nausea And Vomiting Last Admin: 11/30/20 18:37 Dose: 4 mg Documented by: Pantoprazole Sodium (Pantoprazole 40 Mg Inj) 40 mg IV QDAY [facility] Last Admin: 12/02/20 09:42 Dose: Not Given Documented by: Sodium Bicarbonate (Sodium Bicarbonate 650 Mg Tab) 1,300 mg PO TID [facility] Last Admin: 12/02/20 09:41 Dose: Not Given Documented by: Sodium Chloride (Sodium Chloride 0.9% 10 Ml Flush Syringe) 10 ml IV BID [facility] Last Admin: 12/02/20 09:43 Dose: 10 ml Documented by: Sodium Chloride (Sodium Chloride 0.9% 10 Ml Flush Syringe) 10 ml IV PRN PRN PRN Reason: LINE FLUSH Last Admin: 11/30/20 18:37 Dose: 10 ml Documented by: Physical Examination - Physical Exam Narrative exam: Physical Exam: Constitutional: awake, alert Head, Ears, Nose: Normocephalic, atraumatic. External ears, nose normal Eyes: Conjunctivae/corneas clear. No icterus. No ptosis. Neck: Supple, no meningeal signs Cardiovascular: S1, S2 normal. Respiratory: Good air entry, clear to auscultation bilaterally GI: distended, tender, bowel sounds + Musculoskeletal: No pedal edema, no cyanosis. Skin: No rash or abscess Hem/Lymphatic: No palpable cervical or supraclavicular nodes. No lymphangitis Psych: no agitation Neurological: Awake, alert - Constitutional Vitals: Vital Signs Temp Pulse Resp BP Pulse Ox 97.9 F 92 H 33 H 90/58 93 12/02/20 08:00 12/02/20 10:00 12/02/20 08:00 12/01/20 21:35 12/02/20 09:03 Temperature -Last 24 Hours Temperature 97.9 F Temperature 98.8 F Temperature 98.9 F Temperature 99.2 F Temperature 98.3 F Results - Labs CBC & Chem 7: 12/02/20 07:01 12/02/20 07:01 Labs: Abnormal lab results 12/01/20 12/02/20 12/02/20 Range/Units 18:45 07:01 07:01 WBC 20.9 H (4.5-11.0) K/mm3 RBC 2.96 L (3.65-5.03) M/mm3 Hgb 7.8 L (11.8-15.2) gm/dl Hct 23.1 L (35.5-45.6) % MCV 78 L (84-94) fl MCH 26 L (28-32) pg RDW 17.8 H (13.2-15.2) % Plt Count 532 H (140-440) K/mm3 Lymphocytes % (Manual) 7.0 L (13.4-35.0) % Monocytes % (Manual) 10.0 H (0.0-7.3) % Nucleated RBC % 4.0 H (0.0-0.9) % Seg Neutrophils # Man 11.9 H (1.8-7.7) K/mm3 Monocytes # (Manual) 2.1 H (0.0-0.8) K/mm3 Potassium 3.3 L (3.6-5.0) mmol/L Creatinine 0.7 L (0.8-1.3) mg/dL Calcium 7.7 L (8.4-10.2) mg/dL Phosphorus 2.20 L (2.5-4.5) mg/dL Magnesium 1.40 L (1.7-2.3) mg/dL Total Protein 5.5 L (6.3-8.2) g/dL Albumin 1.8 L (3.9-5) g/dL Ur Specific [place] 1.036 H (1.003-1.030) - Imaging and Cardiology Chest x-ray: report reviewed, image reviewed CT scan - abdomen: report reviewed, image reviewed (R pararenal collection) Assessment and Plan Cultures: 11/27/2020 COVID-19 PCR: Negative 11/19/2020 blood culture: No growth 11/19/2020 urine culture: E. coli 12/01/2020 blood culture: No growth A/P: 60-year-old male with gastroesophageal reflux disease, hypertension, hyperlipidemia, alcohol abuse admitted to the hospital on 11/19/2020 with abdominal pain from suspected pancreatitis and alcohol withdrawal: Sepsis: Source likely large multifocal fluid and gas collections in the right pararenal space. #Large multifocal fluid and gas collections in the right pararenal space: etiology is unclear. ?urine leak. This does not seem connected with pancreatitis, no pseudocyst as such. #Subcapsular splenic collection: new, etiology unclear. #Acute alcohol withdrawal, chronic alcohol abuse #JOHN: Resolved Recs: empiric Cefepime + Flagyl Vancomycin discontinued f/u IR drainage and urology evaluation. F/U cultures from drainage Abdulkadir Helton MD, FACP [facility] O: [phone] F: [phone]
--- NOTE | 2020-12-02 13:27 | Consultation ---
DATE OF CONSULTATION: 12/02/2020 HISTORY OF PRESENT ILLNESS: The patient presented with some cardiac issues and left flank pain. I reviewed his CT scan and examined him. He had a CT scan on 11/19 and he had a repeat CT scan of the abdomen about 12 days later. He cannot give a great history. He has a history of alcoholism, elevated cholesterol, heart disease, pancreatitis and abdominal pain. PAST MEDICAL HISTORY: As mentioned above with previous embolisms, heart disease, HIV. PAST SURGICAL HISTORY: ? previous scrotal surgery, no major surgery. FAMILY HISTORY: Noncontributory. ALLERGIES: Negative. MEDICATIONS: He has been on Levaquin, Protonix, folic acid, Librium and amlodipine. REVIEW OF SYSTEMS: Really not obtainable, but he has some flank pain on the left. PHYSICAL EXAMINATION: GENERAL: He is awake, he is not really oriented, he is in no distress, a little bit tachypneic. ABDOMEN: Soft, nondistended. Mild discomfort, left side. No localized masses. GENITALIA: He has a condom catheter. Testes descended bilaterally, moderately atrophic with induration around the left testis. Digital rectal exam, small prostate, no nodules. IMPRESSION: The fluid looked like to be intra-abdominal and around the spleen. The kidney looks stable since 12 days ago. PLAN: Possible percutaneous drainage. Would recommend general surgical evaluation as well for evaluation of the pancreas and intraabdominal fluid. TID: [id number] RECEIPT: [id number] [facility]
--- NOTE | 2020-12-02 14:40 | Operative Report ---
Operative Report Operative Report: EXAM: CT-guided placement of a right retroperitoneal fluid collection with a 12 [place] APD drain DATE: 12/02/2020 LAVATORY ATTENDANT: CARLY TORRES MD INDICATION: Right retroperitoneal fluid collection, multiple other fluid collection MEDICATIONS: Please see nursing report for full details. Anesthesia: Local DEVICES: 12 Iranian drain CONTRAST: None. PROCEDURE: Risks, benefits, and alternatives discussed and consent; written informed consent was obtained. The patient was brought to the CT suite and placed in a prone position. Faculty Dean CT was performed demonstrating a large retroperitoneal fluid collection. There are other fluid collections also identified which are better seen on the CT abdomen and pelvis with contrast performed previously. Images for this study were for localization purposes. The site was marked and timeout was performed. Right flank was prepped and draped in sterile fashion. Under direct CT guidance, the area was infiltrated with lidocaine and a finder needle was placed. Intermittent CT imaging was obtained until an 18-gauge trocar needle was passed into the right retroperitoneal fluid collection. 0.035 inch wire was passed into the fluid collection and serial dilatation was performed before placement of a 12 [place] APD drain. Approximately 500 mL of pinkish fluid was removed. This was sent for culture. Site was secured with 2-0 Ethilon, and StatLock device. Patient tolerated the procedure well. No immediate postprocedural complications. FINDINGS: Intermittent imaging was performed during the procedure. Final imaging demonstrated near complete resolution of the right retroperitoneal fluid collection. IMPRESSION: Successful CT-guided placement of a 12 [place] APD drain in a right retroperitoneal fluid collection.
--- NOTE | 2020-12-02 14:40 | Consultation ---
History of Present Illness - Reason for Consult Consult date: 12/02/20 Multiple fluid collections Requesting physician: ELISEO STRAUSS - History of Present Illness 60-year-old male with gastroesophageal reflux disease, hypertension, hyperlipidemia, alcohol abuse admitted to the hospital on 11/19/2020 with abdominal pain from suspected pancreatitis and alcohol withdrawal. Was found to have a UTI, treated with Zosyn. His initial CT abdomen without contrast on 11/19/2020 had revealed acute inflammatory changes in both pararenal spaces, more prominent on the right side in addition to chronic pancreatitis. Later, patient developed abdominal pain with distention and nausea. CT scan of the abdomen and pelvis with contrast done on 12/01/2020 revealed small bilateral pleural effusions with bilateral airspace consolidations versus atelectasis, evidence of chronic pancreatitis and interval development of large multifocal fluid and gas collections in the right pararenal space, moderate-sized subcapsular splenic collection. Infectious diseases was consulted for additional evaluation. Patient otherwise afebrile. Urology and IR were consulted, plan for CT-guided aspiration. Vascular was consulted for evaluation of the multiple fluid collections. Right pararenal fluid collection is concerning for calyceal rupture. Past History Past Medical History: GERD, hypertension, hyperlipidemia, liver disease. denies: atrial fib, arrhythmia, anemia, CAD, cancer, COPD, diabetes, dialysis, DVT, ESRD, heart failure, hepatitis, HIV/AIDS, hyperthyroidism, hypothyroidism, migraines, PVD, pulmonary embolism, renal failure, seizures, stroke, sarcoidosis Past Surgical History: No surgical history, Other (Scrotal lesion) Social history: lives with family, smoking, alcohol abuse Family history: no significant family history Medications and Allergies Allergies Allergy/AdvReac Type Severity Reaction Status Date / Time No Known Allergies Allergy Verified 10/25/19 12:42 Home Medications Medication Instructions Recorded Confirmed Last Taken Type Folic Acid [Folvite] 1 mg PO QDAY #30 tablet 10/27/19 11/20/20 11/18/20 Rx Colchicine 0.6 mg PO TID 11/20/20 11/20/20 Unknown History Cyanocobalamin (Vitamin B-12) 100 mcg PO QDAY 11/20/20 11/20/20 11/18/20 History Hydrochlorothiazide 12.5 mg PO QDAY 11/20/20 11/20/20 11/18/20 History Lipase/Protease/Amylase [Karen Au 1 cap PO TID 11/20/20 11/20/20 11/18/20 History 6,000 Units] Losartan Potassium 100 mg PO QDAY 11/20/20 11/20/20 11/18/20 History Meloxicam 15 mg PO DAILY 11/20/20 11/20/20 11/18/20 History Pantoprazole [Protonix TAB] 40 mg PO DAILY 11/20/20 11/20/20 11/18/20 History Potassium Gluconate [Potassium] 595 mg PO QDAY 11/20/20 11/20/20 11/18/20 History allopurinoL [Zyloprim] 300 mg PO DAILY 11/20/20 11/20/20 11/18/20 History amLODIPine 10 mg PO DAILY 11/20/20 11/20/20 11/18/20 11:00 History Active Meds: Active Medications Acetaminophen (Acetaminophen 325 Mg Tab) 650 mg PO Q6H PRN PRN Reason: Pain, Mild (1-3) Last Admin: 12/01/20 20:24 Dose: 650 mg Documented by: Albuterol (Albuterol 2.5 Mg/3 Ml Nebu) 2.5 mg IH Q4HRT PRN PRN Reason: Shortness Of Breath Folic Acid (Folic Acid 1 Mg Tab) 1 mg PO QDAY JANNETH Last Admin: 12/02/20 09:42 Dose: Not Given Documented by: Hydralazine HCl (Hydralazine 20 Mg/1 Ml Inj) 10 mg IV Q4HR PRN PRN Reason: Hypertension Cefepime HCl (Cefepime/Ns 2 Gm/100 Ml) 2 gm in 100 mls @ 200 mls/hr IV Q8H JANNET[facility]; Protocol Last Admin: 12/02/20 09:52 Dose: 200 mls/hr Documented by: Sodium Chloride (Nacl 0.9% 1000 Ml) 1,000 mls @ 100 mls/hr IV DIRECT JANNETH Last Admin: 12/02/20 07:48 Dose: 100 mls/hr Documented by: Potassium Phosphate 30 mmol/ (Sodium Chloride) 510 mls @ 83 mls/hr IV ONCE ONE Stop: 12/02/20 16:08 Last Admin: 12/02/20 09:42 Dose: 83 mls/hr Documented by: Metronidazole (Flagyl 500 Mg/100 Ml) 500 mg in 100 mls @ 100 mls/hr IV Q8H [facility]; Protocol Lorazepam (Lorazepam 2 Mg/Ml Vial) 2 mg IV Q4H PRN PRN Reason: Agitation Last Admin: 12/02/20 07:47 Dose: 2 mg Documented by: Losartan Potassium (Losartan 50 Mg Tab) 100 mg PO QDAY [facility] Last Admin: 12/02/20 09:41 Dose: Not Given Documented by: Metoprolol Tartrate (Metoprolol Tartrate 25 Mg Tab) 12.5 mg PO BID [facility] Last Admin: 12/02/20 09:42 Dose: Not Given Documented by: Morphine Sulfate (Morphine 2 Mg/1 Ml Inj) 2 mg IV Q6H PRN PRN Reason: Pain, Moderate (4-6) Last Admin: 12/02/20 04:38 Dose: 2 mg Documented by: Ondansetron HCl (Ondansetron 4 Mg/2 Ml Inj) 4 mg IV Q8H PRN PRN Reason: Nausea And Vomiting Last Admin: 11/30/20 18:37 Dose: 4 mg Documented by: Pantoprazole Sodium (Pantoprazole 40 Mg Inj) 40 mg IV QDAY [facility] Last Admin: 12/02/20 09:42 Dose: Not Given Documented by: Sodium Bicarbonate (Sodium Bicarbonate 650 Mg Tab) 1,300 mg PO TID [facility] Last Admin: 12/02/20 09:41 Dose: Not Given Documented by: Sodium Chloride (Sodium Chloride 0.9% 10 Ml Flush Syringe) 10 ml IV BID [facility] Last Admin: 12/02/20 09:43 Dose: 10 ml Documented by: Sodium Chloride (Sodium Chloride 0.9% 10 Ml Flush Syringe) 10 ml IV PRN PRN PRN Reason: LINE FLUSH Last Admin: 11/30/20 18:37 Dose: 10 ml Documented by: Review of Systems All systems: negative (see HPI) Exam - Constitutional Vitals: Temp Pulse Resp BP Pulse Ox 99.6 F 92 H 33 H 90/58 93 12/02/20 12:00 12/02/20 10:00 12/02/20 12:00 12/01/20 21:35 12/02/20 09:03 General appearance: Present: mild distress (Diffuse abdominal pain) - EENT Eyes: Present: EOM intact ENT: hearing intact - Respiratory Respiratory effort: labored (On supplementary oxygen) - Extremities Extremities: normal temperature, normal color - Abdominal General gastrointestinal: Present: tender (Diffuse abdominal pain) - Psychiatric Psychiatric: appropriate mood/affect, cooperative Results - Labs CBC & Chem 7: 12/02/20 07:01 12/02/20 07:01 Labs: Abnormal lab results 12/01/20 12/02/20 12/02/20 Range/Units 18:45 07:01 07:01 WBC 20.9 H (4.5-11.0) K/mm3 RBC 2.96 L (3.65-5.03) M/mm3 Hgb 7.8 L (11.8-15.2) gm/dl Hct 23.1 L (35.5-45.6) % MCV 78 L (84-94) fl MCH 26 L (28-32) pg RDW 17.8 H (13.2-15.2) % Plt Count 532 H (140-440) K/mm3 Lymphocytes % (Manual) 7.0 L (13.4-35.0) % Monocytes % (Manual) 10.0 H (0.0-7.3) % Nucleated RBC % 4.0 H (0.0-0.9) % Seg Neutrophils # Man 11.9 H (1.8-7.7) K/mm3 Monocytes # (Manual) 2.1 H (0.0-0.8) K/mm3 Potassium 3.3 L (3.6-5.0) mmol/L Creatinine 0.7 L (0.8-1.3) mg/dL Calcium 7.7 L (8.4-10.2) mg/dL Phosphorus 2.20 L (2.5-4.5) mg/dL Magnesium 1.40 L (1.7-2.3) mg/dL Total Protein 5.5 L (6.3-8.2) g/dL Albumin 1.8 L (3.9-5) g/dL Ur Specific [place] 1.036 H (1.003-1.030) Assessment and Plan 60-year-old male with multiple medical issues including multiple fluid collections. The right pararenal fluid collection is the largest, the patient will be sc heduled for drainage today with materials sent off for culture. Right pararenal fluid collection appears to be from a calyceal/forniceal rupture. Recommend urology consult for evaluation for right ureteral stent placement. The right collecting system is not amenable to percutaneous nephrostomy tube placement due to overlying fluid collection. The fluid collection itself will be drained today. Recommend reevaluation CT on 12/04/2020. Based on CT results, further drainage may be performed on .
[2020-12-02] MEDS: metroNIDAZOLE/NS 500 MG/100 ML 500 MG/100 ML BAG IV SCH ×2 (14:51→20:20)
--- NOTE | 2020-12-02 17:20 | Consultation ---
History of Present Illness Consult date: 12/02/20 Chief complaint: Intra-abdominal fluid collections - History of present illness History of present illness: 60 yo male with mild left flank pain and abnormal CT findings. He feels much better since CT drainage of his left pararenal fluid collection. He denies N/V. No hematochezia. Past History Past Medical History: GERD, hypertension, hyperlipidemia, liver disease. denies: atrial fib, arrhythmia, anemia, CAD, cancer, COPD, diabetes, dialysis, DVT, ESRD, heart failure, hepatitis, HIV/AIDS, hyperthyroidism, hypothyroidism, migraines, PVD, pulmonary embolism, renal failure, seizures, stroke, sarcoidosis Past Surgical History: No surgical history, Other (Scrotal lesion) Social history: lives with family, smoking, alcohol abuse Family history: no significant family history Medications and Allergies Allergies Allergy/AdvReac Type Severity Reaction Status Date / Time No Known Allergies Allergy Verified 10/25/19 12:42 Home Medications Medication Instructions Recorded Confirmed Last Taken Type Folic Acid [Folvite] 1 mg PO QDAY #30 tablet 10/27/19 11/20/20 11/18/20 Rx Colchicine 0.6 mg PO TID 11/20/20 11/20/20 Unknown History Cyanocobalamin (Vitamin B-12) 100 mcg PO QDAY 11/20/20 11/20/20 11/18/20 History Hydrochlorothiazide 12.5 mg PO QDAY 11/20/20 11/20/20 11/18/20 History Lipase/Protease/Amylase [Creon Dr 1 cap PO TID 11/20/20 11/20/20 11/18/20 History 6,000 Units] Losartan Potassium 100 mg PO QDAY 11/20/20 11/20/20 11/18/20 History Meloxicam 15 mg PO DAILY 11/20/20 11/20/20 11/18/20 History Pantoprazole [Protonix TAB] 40 mg PO DAILY 11/20/20 11/20/20 11/18/20 History Potassium Gluconate [Potassium] 595 mg PO QDAY 11/20/20 11/20/20 11/18/20 History allopurinoL [Zyloprim] 300 mg PO DAILY 11/20/20 11/20/20 11/18/20 History amLODIPine 10 mg PO DAILY 11/20/20 11/20/20 11/18/20 11:00 History Active Meds: Active Medications Acetaminophen (Acetaminophen 325 Mg Tab) 650 mg PO Q6H PRN PRN Reason: Pain, Mild (1-3) Last Admin: 12/01/20 20:24 Dose: 650 mg Documented by: Albuterol (Albuterol 2.5 Mg/3 Ml Nebu) 2.5 mg IH Q4HRT PRN PRN Reason: Shortness Of Breath Folic Acid (Folic Acid 1 Mg Tab) 1 mg PO QDAY [facility] Last Admin: 12/02/20 09:42 Dose: Not Given Documented by: Hydralazine HCl (Hydralazine 20 Mg/1 Ml Inj) 10 mg IV Q4HR PRN PRN Reason: Hypertension Cefepime HCl (Cefepime/Ns 2 Gm/100 Ml) 2 gm in 100 mls @ 200 mls/hr IV Q8H [facility]; Protocol Last Admin: 12/02/20 09:52 Dose: 200 mls/hr Documented by: Sodium Chloride (Nacl 0.9% 1000 Ml) 1,000 mls @ 100 mls/hr IV DIRECT JANNETH Last Admin: 12/02/20 07:48 Dose: 100 mls/hr Documented by: Metronidazole (Flagyl 500 Mg/100 Ml) 500 mg in 100 mls @ 100 mls/hr IV Q8H [facility]; Protocol Last Admin: 12/02/20 14:51 Dose: 100 mls/hr Documented by: Lorazepam (Lorazepam 2 Mg/Ml Vial) 2 mg IV Q4H PRN PRN Reason: Agitation Last Admin: 12/02/20 07:47 Dose: 2 mg Documented by: Losartan Potassium (Losartan 50 Mg Tab) 100 mg PO QDAY [facility] Last Admin: 12/02/20 09:41 Dose: Not Given Documented by: Metoprolol Tartrate (Metoprolol Tartrate 25 Mg Tab) 12.5 mg PO BID [facility] Last Admin: 12/02/20 09:42 Dose: Not Given Documented by: Morphine Sulfate (Morphine 2 Mg/1 Ml Inj) 2 mg IV Q6H PRN PRN Reason: Pain, Moderate (4-6) Last Admin: 12/02/20 04:38 Dose: 2 mg Documented by: Ondansetron HCl (Ondansetron 4 Mg/2 Ml Inj) 4 mg IV Q8H PRN PRN Reason: Nausea And Vomiting Last Admin: 11/30/20 18:37 Dose: 4 mg Documented by: Pantoprazole Sodium (Pantoprazole 40 Mg Inj) 40 mg IV QDAY [facility] Last Admin: 12/02/20 09:42 Dose: Not Given Documented by: Sodium Bicarbonate (Sodium Bicarbonate 650 Mg Tab) 1,300 mg PO TID [facility] Last Admin: 12/02/20 15:07 Dose: 1,300 mg Documented by: Sodium Chloride (Sodium Chloride 0.9% 10 Ml Flush Syringe) 10 ml IV BID [facility] Last Admin: 12/02/20 09:43 Dose: 10 ml Documented by: Sodium Chloride (Sodium Chloride 0.9% 10 Ml Flush Syringe) 10 ml IV PRN PRN PRN Reason: LINE FLUSH Last Admin: 11/30/20 18:37 Dose: 10 ml Documented by: Review of Systems All systems: negative (none) Exam Vital Signs Temp Pulse Resp BP Pulse Ox 97.6 F 104 H 22 144/82 99 11/19/20 16:20 11/19/20 16:20 11/19/20 16:20 11/19/20 16:20 11/19/20 16:20 - General physical appearance Positive: well developed, well nourished, no distress - Eyes Positive: PERRL, normal occular movement - ENT Positive: normal pinna, normal nares, normal mucosa, no hearing loss, no congestion - Neck Positive: no masses, no bruits, trachea midline, no venous distension - Respiratory Positive: normal expansion, normal respiratory effort, clear to auscultation - Cardiovascular Rhythm: regular Heart Sounds: Present: S1 & S2. Absent: rub, click - Extremities Extremities: no ischemia, pulses symmetrical, No edema - Breasts Breasts: normal, no mass, no skin changes - Abdomen Abdomen: Present: soft, bowel sounds normal, other (The left flank drain is draining a moderate amount of brown liquid.). Absent: tender, distended Hernia: none - Genitourinary Male Genitourinary: normal Female Genitourinary: normal - Integumentary no rash, no growths, no abnormal pigmentation - Neurologic Neurologic: alert and oriented to time, place and person, motor strength and sensation are grossly intact - Musculoskeletal normal gait, normal posture - Psychiatric Psychiatric: appropriate mood/affect, intact judgment & insight Results - Labs 12/02/20 07:01 12/02/20 07:01 Abnormal lab results 12/01/20 12/02/20 12/02/20 Range/Units 18:45 07:01 07:01 WBC 20.9 H (4.5-11.0) K/mm3 RBC 2.96 L (3.65-5.03) M/mm3 Hgb 7.8 L (11.8-15.2) gm/dl Hct 23.1 L (35.5-45.6) % MCV 78 L (84-94) fl MCH 26 L (28-32) pg RDW 17.8 H (13.2-15.2) % Plt Count 532 H (140-440) K/mm3 Lymphocytes % (Manual) 7.0 L (13.4-35.0) % Monocytes % (Manual) 10.0 H (0.0-7.3) % Nucleated RBC % 4.0 H (0.0-0.9) % Seg Neutrophils # Man 11.9 H (1.8-7.7) K/mm3 Monocytes # (Manual) 2.1 H (0.0-0.8) K/mm3 Potassium 3.3 L (3.6-5.0) mmol/L Creatinine 0.7 L (0.8-1.3) mg/dL Calcium 7.7 L (8.4-10.2) mg/dL Phosphorus 2.20 L (2.5-4.5) mg/dL Magnesium 1.40 L (1.7-2.3) mg/dL Total Protein 5.5 L (6.3-8.2) g/dL Albumin 1.8 L (3.9-5) g/dL Ur Specific [place] 1.036 H (1.003-1.030) Diabetes panel 12/02/20 Range/Units 07:01 Sodium 140 (137-145) mmol/L Potassium 3.3 L (3.6-5.0) mmol/L Chloride 106.5 (98-107) mmol/L Carbon Dioxide 23 (22-30) mmol/L BUN 11 (9-20) mg/dL Creatinine 0.7 L (0.8-1.3) mg/dL Glucose 75 (75-100) mg/dL Calcium 7.7 L (8.4-10.2) mg/dL AST 13 (5-40) units/L ALT 7 (7-56) units/L Alkaline Phosphatase 122 (35-129) units/L Total Protein 5.5 L (6.3-8.2) g/dL Albumin 1.8 L (3.9-5) g/dL Calcium panel 12/02/20 Range/Units 07:01 Calcium 7.7 L (8.4-10.2) mg/dL Phosphorus 2.20 L (2.5-4.5) mg/dL Albumin 1.8 L (3.9-5) g/dL Pituitary panel 12/02/20 Range/Units 07:01 Sodium 140 (137-145) mmol/L Potassium 3.3 L (3.6-5.0) mmol/L Chloride 106.5 (98-107) mmol/L Carbon Dioxide 23 (22-30) mmol/L BUN 11 (9-20) mg/dL Creatinine 0.7 L (0.8-1.3) mg/dL Glucose 75 (75-100) mg/dL Calcium 7.7 L (8.4-10.2) mg/dL Adrenal panel 12/02/20 Range/Units 07:01 Sodium 140 (137-145) mmol/L Potassium 3.3 L (3.6-5.0) mmol/L Chloride 106.5 (98-107) mmol/L Carbon Dioxide 23 (22-30) mmol/L BUN 11 (9-20) mg/dL Creatinine 0.7 L (0.8-1.3) mg/dL Glucose 75 (75-100) mg/dL Calcium 7.7 L (8.4-10.2) mg/dL Total Bilirubin 0.40 (0.1-1.2) mg/dL AST 13 (5-40) units/L ALT 7 (7-56) units/L Alkaline Phosphatase 122 (35-129) units/L Total Protein 5.5 L (6.3-8.2) g/dL Albumin 1.8 L (3.9-5) g/dL - Imaging CT scan - abdomen: report reviewed CT scan - pelvis: report reviewed Additional studies: I reviewed Dr. Munoz's operative note. Assessment and Plan - Patient Problems (1) Intra-abdominal abscess Current Visit: Yes Status: Acute Plan to address problem: 1) Pt does not have an acute abdomen. 2) Continue broad spectrum IV antibiotics 3) Consider ID consult 4) CBC in the am 5) Tailor antibiotics per C&S of fluid
--- NOTE | 2020-12-02 17:43 | Ultrasound Report ---
TESTICULAR ULTRASOUND HISTORY: Palpable abnormality. FINDINGS: Right testicle measures 3.9 x 1.7 x 3 cm. Diffuse heterogeneity is present. No discrete right-sided l esion. Left testicle measures 4.2 x 1.5 x 3 cm. Diffuse heterogeneity is present. This is more prominent at the lower pole. The adjacent epididymis is enlarged and inflamed. There is also scrotal edema. Vascular flow is unremarkable. No hydrocele. IMPRESSION: 1. Diffuse testicular heterogeneity bilaterally. 2. Abnormal appearance at the lower pole the left testicle and the adjacent epididymis/soft tissues. Epididymoorchitis is favored. Short interval follow-up is recommended to ensure clearing and exclude an underlying mass. Signer Name: Krishan Rosenthal MD Signed: 12/02/2020 5:38 PM Workstation Name: [id number]
[2020-12-02] MEDS: PANTOPRAZOLE 40 MG TAB PO SCH (19:43)
[2020-12-02] MEDS: ACETAMINOPHEN 325 MG TAB PO PRN (23:04)
[2020-12-03] MEDS: metroNIDAZOLE/NS 500 MG/100 ML 500 MG/100 ML BAG IV SCH ×2 (04:36→13:56)
[2020-12-03] MEDS: MORPHINE 2 MG/1 ML INJ IV PRN ×3 (04:37→18:00)
[2020-12-03 05:16] LABS: Hemoglobin 7.8 gm/dl (11.8-15.2); Mean Corpuscular HGB Conc 33 % (32-34); Mean Corpuscular Volume 80 fl (84-94); Platelet Count 567 K/mm3 (140-440); Red Blood Count 3.01 M/mm3 (3.65-5.03); Red Cell Distribution Width 18.3 % (13.2-15.2)
[2020-12-03 07:18] LABS: Total Cells Counted 100
[2020-12-03 07:19] LABS: Band Neutrophils # (Manual) 2.6 K/mm3
[2020-12-03 07:22] LABS: Anisocytosis 1+; Hypochromasia 2+; Platelet Estimate Consistent w Auto; Stomatocytes Few; Target Cells Few
--- NOTE | 2020-12-03 08:33 | Progress Note ---
Assessment and Plan - Patient Problems (1) Intra-abdominal abscess Current Visit: Yes Status: Acute Plan to address problem: 1) Consider draining LUQ fluid collection as well. 2) IV antibiotics based on C&S of yesterday's drainage procedure. 3) Surgical intervention only if percutaneous procedures and IV antibiotics fail. Subjective Date of service: 12/03/20 Patient Reports: Positive: no new complaints Objective Vital Signs - 12hr 12/02/20 12/02/20 12/02/20 20:50 21:00 22:00 Temperature Pulse Rate 93 H 98 H Pulse Rate [ From Monitor] Respiratory 35 H 36 H 41 H Rate Blood Pressure 109/63 111/63 O2 Sat by Pulse 100 100 Oximetry 12/02/20 12/02/20 12/02/20 22:28 23:00 23:04 Temperature Pulse Rate 95 H 98 H Pulse Rate [ From Monitor] Respiratory 42 H 42 H Rate Blood Pressure 111/63 116/63 O2 Sat by Pulse 97 Oximetry 12/02/20 12/02/20 12/03/20 23:38 23:55 00:00 Temperature 101.3 F H Pulse Rate 90 91 H 92 H Pulse Rate [ 92 H From Monitor] Respiratory 38 H 36 H Rate Blood Pressure 116/63 99/58 O2 Sat by Pulse 100 98 Oximetry 12/03/20 12/03/20 12/03/20 00:04 01:00 02:00 Temperature Pulse Rate 91 H 94 H Pulse Rate [ From Monitor] Respiratory 36 H 37 H 42 H Rate Blood Pressure 95/53 110/59 O2 Sat by Pulse 97 94 Oximetry 12/03/20 12/03/20 12/03/20 02:06 02:10 02:16 Temperature Pulse Rate 94 H 95 H 95 H Pulse Rate [ From Monitor] Respiratory 48 H 47 H 45 H Rate Blood Pressure 110/59 110/59 110/59 O2 Sat by Pulse 95 97 95 Oximetry 12/03/20 12/03/20 12/03/20 02:20 02:26 02:30 Temperature Pulse Rate 94 H 91 H 94 H Pulse Rate [ From Monitor] Respiratory 46 H 42 H 48 H Rate Blood Pressure 110/59 110/59 110/59 O2 Sat by Pulse 95 96 97 Oximetry 12/03/20 12/03/20 12/03/20 02:36 02:40 02:46 Temperature Pulse Rate 91 H 99 H 90 Pulse Rate [ From Monitor] Respiratory 40 H 41 H 37 H Rate Blood Pressure 110/59 110/59 110/59 O2 Sat by Pulse 97 97 97 Oximetry 12/03/20 12/03/20 12/03/20 02:50 02:56 03:00 Temperature Pulse Rate 89 88 94 H Pulse Rate [ From Monitor] Respiratory 40 H 39 H 40 H Rate Blood Pressure 110/59 110/59 94/53 O2 Sat by Pulse 98 98 Oximetry 12/03/20 12/03/20 12/03/20 03:06 04:00 04:05 Temperature 99.2 F Pulse Rate 90 81 91 H Pulse Rate [ 81 From Monitor] Respiratory 36 H 32 H Rate Blood Pressure 94/53 96/59 O2 Sat by Pulse 96 98 Oximetry 12/03/20 12/03/20 12/03/20 04:37 05:00 05:07 Temperature Pulse Rate 86 Pulse Rate [ From Monitor] Respiratory 40 H 35 H 35 H Rate Blood Pressure 111/71 O2 Sat by Pulse 100 Oximetry 12/03/20 12/03/20 12/03/20 06:00 07:00 08:00 Temperature Pulse Rate 77 88 95 H Pulse Rate [ 81 From Monitor] Respiratory 36 H 38 H 45 H Rate Blood Pressure 107/68 106/63 110/69 O2 Sat by Pulse 100 99 99 Oximetry - Abdomen soft, bowel sounds normal (Minimal diffuse tenderness without rebound or guarding) - Labs 12/03/20 04:27 12/02/20 07:01 Diabetes panel 12/02/20 Range/Units 07:01 Creatinine 0.7 L (0.8-1.3) mg/dL Pituitary panel 12/02/20 Range/Units 07:01 Creatinine 0.7 L (0.8-1.3) mg/dL Adrenal panel 12/02/20 Range/Units 07:01 Creatinine 0.7 L (0.8-1.3) mg/dL
--- NOTE | 2020-12-03 08:42 | Progress Note ---
Assessment and Plan Assessment and plan: 60-year-old male patient who was initially admitted with alcohol withdrawal symptoms, chronic pancreatitis, on CIWA protocol, patient also had urinary tract infection with E. coli Completed treatment, and patient is waiting for subacute rehab placement. Yesterday patient developed abdominal pain with mild distention with severe nausea. CT abdomen and pelvis with contrast was obtained Which showed multi focal fluid and gas collection around pararenal upper abdomen and splenic area. Patient was started on IV antibiotics cefepime, vancomycin and IR evaluated the patient s/p CT-guided placement of 12 [place] APD drain in the right retroperitoneal fluid collection 12/02/2020 Surgical cultures gram-negative rods, urine cultures Enterococcus, ID discontinued cefepime Flagyl And started Zosyn. --Hypokalemia/hypophosphatemia/hypomagnesemia; Current Visit: No Status: Acute; Replenished with potassium chloride, magnesium sulfate and K-Phos Closely monitor electrolytes --Multifocal fluid and gas collection[pararenal, upper abdomen, splenic area] Current Visit: No Status: Acute Interventional radiologist is following s/p CT-guided placement of 12 [place] APD drain in the right retroperitoneal fluid collection 12/02/2020 per IR Continue supportive care, follow fluid analysis and cultures --Severe sepsis/intra-abdominal infection Current Visit: No Status: Acute. Recent UTI, pancreatitis Today , Surgical cultures today gram-negative rods urine cultures Enterococcus; ID changed the antibiotics to Zosyn . --Anemia; Hb today 7.8 Current Visit: No Status: Acute. Stool for occult blood negative Received 1 unit of PRBC transfusion, --Hypophosphatemia/hypokalemia; Current Visit: No Status: Acute Monitor electrolytes --Alcohol withdrawal delirium Current Visit: No Status: Acute Symptoms significantly improved IV Ativan as needed --Acute kidney injury; Current Visit: Yes Status: Acute Vasomotor nephropathy, resolved --History of chronic ETOH abuse Current Visit: No Status: Chronic Education given to the patient advised to quit Also advised to seek alcohol rehabilitation And alcohol Anonymous support group When medically stable --Hypertension Current Visit: No Status: Chronic Moderate control continue current antihypertensives --Ongoing tobacco use Current Visit: No Status: Chronic Smoking cessation counseling Strongly advised nicotine patch. --Severe protein calorie malnutrition Current Visit: No Status: Acute Hypoalbuminemia , albumin 2.8 Nutrition supplements, nutrition consult and supportive care -- Metabolic acidosis Current Visit: Yes Status: Acute Plan to address problem: Secondary to uremia as well as chronic pancreatitis treat underlying etiology. --DVT prophylaxis; Current Visit: Yes Status: Acute SCDs,No pharmacological anticoagulation in view of possible hematoma on CT abdomen And anemia PT re evaluated the patient on 12/02/2020; Recommended subacute rehab We will closely monitor the patient and adjust the management as needed Plan of care reviewed with the patient and his nurse DC planning; subacute rehab when medically stable The high probability of a clinically significant, sudden or life threatening deterioration of the [multi] system(s) required my full and direct attention, intervention and personal management. The aggregate critical care time was [40] minutes. This time is in addition to time spent performing reported procedures but includes the following: [x] Data Review and interpretation [x] Patient assessment and monitoring of vital signs [x] Documentation [x] Medication orders and management Brief history and daily hospital course: 60-year-old male patient was admitted with alcohol withdrawal symptoms On CIWA protocol patient has E. coli UTI completed treatment with antibiotics COVID-19 test is negative, waiting for placement however on 12/01/2020 Patient developed sudden abdominal pain, CT scan showed multiple loculated collections, sepsis IR Dr. Dugan, urology disposition Home and ID Dr. Garcia was consulted, IR is planning CT-guided aspiration Try to contact daughter Huong Hua, unable to reach left a message and requested to call back 11/20/2020; patient feels slightly better, no significant withdrawal symptoms Patient is on CIWA protocol, stable to be transferred out of IMCU to medical floor 11/21/2020; patient has severe agitation tremulousness, patient is on CIWA shira col Closely monitor withdrawal symptoms, adjust the medications as needed in the morning equal in both upper Advance diet to regular as tolerated. I called patient's mother and also patient's daughter Ms. Huong Hua at [phone] 11/22/2020; Patient continues to be agitated confused mumbling, On CIWA protocol, restraint for safety. E. coli UTI on Zosyn Called again patient's daughter next of kin Ms. Huong Hua at [phone][number obtained from director of casework department Ms. Vo] Did not apple picking supervisor the phone I left a voicemail again today to discuss about Mr. Parada's condition and treatment plan 11/23/2020 Patient continues to be agitated Resumed service 11/26/2020; Patient still has mild alcohol withdrawal symptoms Restraints for safety 11/27/2020; Patient is off CIWA protocol and restraints PT OT evaluated, PT recommending subacute rehab 11/28/2020; today patient has some mild shortness of breath and wheezing Tachycardia heart rate in 100 -110 , alert awake oriented x3 Possible fluid overload, give 1 dose of Lasix IV, checks chest x-ray 11/29/2020; patient is more alert and awake, no shortness of breath No alcohol withdrawal symptoms, pending subacute rehab placemen 11/30/2020; Anemia patient's hemoglobin dropped to 6.9, transfuse 1 unit PRBC Stool for occult blood, GI consult if needed 12/01/2020; stool guaiac negative Hb improved to 8.1, complains of some abdominal pain and discomfort Will check CT abdomen and pelvis Pending placementI IAdvised to quit alcohol intake CT abdomen and pelvis multifocal fluid collection IR/urology/ID were consulted, started antibiotics IR recommend CT-guided drainage 12/02/2020; CT-guided drainage pain, tried to contact and next of kin daughter Ms. Huong Hua at [phone][number obtained from director of casework department Ms. Vo] Did not apple picking supervisor the phone, left message to call back 12/03/2020; patient feels slightly better CT-guided drain placement yesterday per IR ID changed antibiotics to Zosyn Reevaluation by PT, recommend subacute rehab DC planning per case management We will discharge to subacute rehab when medically stable History Interval history: Patient underwent CT-guided placement of 12 [place] APD drain in the right retroperitoneal fluid collection 12/02/2020 per IR I have seen and examined the patient at the bedside in IMCU this morning Patient feels slightly better, complains of some back pain Patient is alert and awake responding appropriately No new overnight events reported by nursing staff Vital signs noted Hospitalist Physical - Constitutional Vitals: Temp Pulse Resp BP Pulse Ox 99.2 F 81 32 H 110/69 98 12/03/20 04:00 12/03/20 08:00 12/03/20 08:00 12/03/20 08:00 12/03/20 08:00 General appearance: Present: no acute distress, well-nourished - EENT Eyes: Present: PERRL, EOM intact - Neck Neck: Present: supple, normal ROM - Respiratory Respiratory effort: normal Respiratory: bilateral: diminished, rhonchi, negative: rales, wheezing - Cardiovascular Rhythm: regular - Extremities Extremities: no ischemia, No edema - Abdominal General gastrointestinal: soft, non-tender, non-distended, normal bowel sounds - Integumentary Integumentary: Present: clear, warm - Psychiatric Psychiatric: appropriate mood/affect, cooperative - Neurologic Neurologic: moves all extremities HEART Score - HEART Score Troponin: Troponin T < 0.010 ng/mL (0.00-0.029) 11/19/20 22:51 Results - Labs CBC & Chem 7: 12/03/20 04:27 12/02/20 07:01 Labs: Laboratory Last Values WBC 21.8 K/mm3 (4.5-11.0) H 12/03/20 04:27 RBC 3.01 M/mm3 (3.65-5.03) L 12/03/20 04:27 Hgb 7.8 gm/dl (11.8-15.2) L 12/03/20 04:27 Hct 24.0 % (35.5-45.6) L 12/03/20 04:27 MCV 80 fl (84-94) L 12/03/20 04:27 MCH 26 pg (28-32) L 12/03/20 04:27 MCHC 33 % (32-34) 12/03/20 04:27 RDW 18.3 % (13.2-15.2) H 12/03/20 04:27 Plt Count 567 K/mm3 (140-440) H 12/03/20 04:27 Lymph % (Auto) 10.1 % (13.4-35.0) L 11/25/20 04:14 [place] % (Auto) 6.5 % (0.0-7.3) 11/25/20 04:14 Eos % (Auto) 0.8 % (0.0-4.3) 11/25/20 04:14 Baso % (Auto) 0.1 % (0.0-1.8) 11/25/20 04:14 Lymph # (Auto) Detail Sergeant 12/02/20 07:01 [place] # (Auto) 1.0 K/mm3 (0.0-0.8) H 11/25/20 04:14 Eos # (Auto) 0.1 K/mm3 (0.0-0.4) 11/25/20 04:14 Baso # (Auto) 0.0 K/mm3 (0.0-0.1) 11/25/20 04:14 Add Manual Diff Complete 12/03/20 04:27 Total Counted 100 12/03/20 04:27 Seg Neutrophils % 82.5 % (40.0-70.0) H 11/25/20 04:14 Seg Neuts % (Manual) 76.0 % (40.0-70.0) H 12/03/20 04:27 Band Neutrophils % 12.0 % 12/03/20 04:27 Lymphocytes % (Manual) 5.0 % (13.4-35.0) L 12/03/20 04:27 Reactive Lymphs % (Man) 2.0 % 11/30/20 08:40 Monocytes % (Manual) 6.0 % (0.0-7.3) 12/03/20 04:27 Eosinophils % (Manual) 1.0 % (0.0-4.3) 12/02/20 07:01 Metamyelocytes % 1.0 % 12/03/20 04:27 Myelocytes % 2.0 % 12/02/20 07:01 Nucleated RBC % 2.0 % (0.0-0.9) H 12/03/20 04:27 Seg Neutrophils # 12.3 K/mm3 (1.8-7.7) H 11/25/20 04:14 Seg Neutrophils # Man 16.6 K/mm3 (1.8-7.7) H 12/03/20 04:27 Band Neutrophils # 2.6 K/mm3 12/03/20 04:27 Lymphocytes # (Manual) 1.1 K/mm3 (1.2-5.4) L 12/03/20 04:27 Abs React Lymphs (Man) 0.0 K/mm3 12/03/20 04:27 Monocytes # (Manual) 1.3 K/mm3 (0.0-0.8) H 12/03/20 04:27 Eosinophils # (Manual) 0.0 K/mm3 (0.0-0.4) 12/03/20 04:27 Basophils # (Manual) 0.0 K/mm3 (0.0-0.1) 12/03/20 04:27 Metamyelocytes # 0.2 K/mm3 12/03/20 04:27 Myelocytes # 0.0 K/mm3 12/03/20 04:27 Promyelocytes # 0.0 K/mm3 12/03/20 04:27 Blast Cells # 0.0 K/mm3 12/03/20 04:27 WBC Morphology Not Reportable 12/03/20 04:27 Hypersegmented Neuts Not Reportable 12/03/20 04:27 Hyposegmented Neuts Not Reportable 12/03/20 04:27 Hypogranular Neuts Not Reportable 12/03/20 04:27 Smudge Cells Not Reportable 12/03/20 04:27 Toxic Granulation Not Reportable 12/03/20 04:27 Toxic Vacuolation Not Reportable 12/03/20 04:27 Dohle Bodies Not Reportable 12/03/20 04:27 Pelger-Huet Anomaly Not Reportable 12/03/20 04:27 Aiden Rods Not Reportable 12/03/20 04:27 Platelet Estimate Consistent w auto 12/03/20 04:27 Clumped Platelets Not Reportable 12/03/20 04:27 Plt Clumps, EDTA Not Reportable 12/03/20 04:27 Large Platelets Not Reportable 12/03/20 04:27 Giant Platelets Not Reportable 12/03/20 04:27 Platelet Satelliting Not Reportable 12/03/20 04:27 Plt Morphology Comment Not Reportable 12/03/20 04:27 RBC Morphology Not Reportable 12/03/20 04:27 Dimorphic RBCs Not Reportable 12/03/20 04:27 Polychromasia Few 12/03/20 04:27 Hypochromasia 2+ 12/03/20 04:27 Poikilocytosis Not Reportable 12/03/20 04:27 Anisocytosis 1+ 12/03/20 04:27 Microcytosis Not Reportable 12/03/20 04:27 Macrocytosis Not Reportable 12/03/20 04:27 Spherocytes Not Reportable 12/03/20 04:27 Pappenheimer Bodies Not Reportable 12/03/20 04:27 Sickle Cells Not Reportable 12/03/20 04:27 Target Cells Few 12/03/20 04:27 Tear Drop Cells Not Reportable 12/03/20 04:27 Ovalocytes Not Reportable 12/03/20 04:27 Stomatocytes Few 12/03/20 04:27 Helmet Cells Not Reportable 12/03/20 04:27 Lux-[place] Bodies Not Reportable 12/03/20 04:27 [place] Rings Not Reportable 12/03/20 04:27 Stevie Cells Not Reportable 12/03/20 04:27 Bite Cells Not Reportable 12/03/20 04:27 Crenated Cell Not Reportable 12/03/20 04:27 Elliptocytes Not Reportable 12/03/20 04:27 Acanthocytes (Spur) Not Reportable 12/03/20 04:27 Rouleaux Not Reportable 12/03/20 04:27 Hemoglobin C Crystals Not Reportable 12/03/20 04:27 Schistocytes Not Reportable 12/03/20 04:27 Malaria parasites Not Reportable 12/03/20 04:27 Florin Bodies Not Reportable 12/03/20 04:27 Hem Pathologist Commnt No 12/03/20 04:27 PT 15.8 Sec. (12.2-14.9) H 12/01/20 05:53 INR 1.21 (0.87-1.13) H 12/01/20 05:53 APTT 33.7 Sec. (24.2-36.6) 12/01/20 05:53 D-Dimer 1767.06 ng/mlDDU (0-234) H 11/19/20 16:44 ABG pH 7.454 (7.320-7.450) H 11/28/20 17:47 POC ABG pCO2 25.8 mmHg (32.0-48.0) L 11/28/20 17:47 POC ABG pO2 65.5 mmHg (83-108) L 11/28/20 17:47 POC ABG HCO3 17.7 11/28/20 17:47 ABG O2 Saturation 94.3 (0-100) 11/28/20 17:47 POC ABG Base Excess -5.5 11/28/20 17:47 ABG Hemoglobin 7.0 (12.0-17.5) L 11/28/20 17:47 ABG Oxyhemoglobin 92.2 (94-98) L 11/28/20 17:47 ABG Methemoglobin 0.3 (0.0-1.5) 11/28/20 17:47 ABG Sodium 143.6 mmol/L (136.0-145.0) 11/28/20 17:47 ABG Potassium 3.6 mmol/L (3.40-4.50) 11/28/20 17:47 ABG Chloride 117.0 mmol/L (98-107) H 11/28/20 17:47 ABG Glucose 104 mg/dL (65-95) H 11/28/20 17:47 Carboxyhemoglobin 1.9 (0.5-1.5) H 11/28/20 17:47 FiO2 % 21.0 11/28/20 17:47 Sodium 140 mmol/L (137-145) 12/02/20 07:01 Potassium 3.3 mmol/L (3.6-5.0) L 12/02/20 07:01 Chloride 106.5 mmol/L (98-107) 12/02/20 07:01 Carbon Dioxide 23 mmol/L (22-30) 12/02/20 07:01 Anion Gap 14 mmol/L 12/02/20 07:01 BUN 11 mg/dL (9-20) 12/02/20 07:01 Creatinine 0.7 mg/dL (0.8-1.3) L 12/02/20 07:01 Estimated GFR > 60 ml/min 12/02/20 07:01 BUN/Creatinine Ratio 16 % 12/02/20 07:01 Glucose 75 mg/dL (75-100) 12/02/20 07:01 POC Glucose 177 mg/dL (70-105) H 12/03/20 07:27 Lactic Acid 3.10 mmol/L (0.7-2.0) H* 11/19/20 18:28 Calcium 7.7 mg/dL (8.4-10.2) L 12/02/20 07:01 Phosphorus 2.20 mg/dL (2.5-4.5) L 12/02/20 07:01 Magnesium 1.40 mg/dL (1.7-2.3) L 12/02/20 07:01 Total Bilirubin 0.40 mg/dL (0.1-1.2) 12/02/20 07:01 Direct Bilirubin 0.2 mg/dL (0-0.2) 11/19/20 16:44 Indirect Bilirubin 0.3 mg/dL 11/19/20 16:44 AST 13 units/L (5-40) 12/02/20 07:01 ALT 7 units/L (7-56) 12/02/20 07:01 Alkaline Phosphatase 122 units/L (35-129) 12/02/20 07:01 Total Creatine Kinase 26 units/L (55-170) L 11/19/20 16:44 CK-MB (CK-2) < 1.0 ng/mL (0.0-4.0) 11/19/20 16:44 CK-MB (CK-2) Rel Index 3.8 (0-4) 11/19/20 16:44 Troponin T < 0.010 ng/mL (0.00-0.029) 11/19/20 22:51 NT-Pro-B Natriuret Pep 454.0 pg/mL (0-900) 11/19/20 16:44 Total Protein 5.5 g/dL (6.3-8.2) L 12/02/20 07:01 Albumin 1.8 g/dL (3.9-5) L 12/02/20 07:01 Albumin/Globulin Ratio 0.5 % 12/02/20 07:01 Amylase 64 units/L (27-131) 12/02/20 07:01 Lipase 16 units/L (13-60) 12/02/20 07:01 Arterial Blood Glucose 104 mg/dL (65-95) H 11/28/20 17:47 Arterial Blood Ionized Calcium 4.5 mg/dL (4.6-5.3) L 11/28/20 17:47 Urine Color Yellow (Yellow) 12/01/20 18:45 Urine Turbidity Clear (Clear) 12/01/20 18:45 Urine pH 6.0 (5.0-7.0) 12/01/20 18:45 Ur Specific Wilson 1.036 (1.003-1.030) H 12/01/20 18:45 Urine Protein <15 mg/dl mg/dL (Negative) 12/01/20 18:45 Urine Glucose (UA) Neg mg/dL (Negative) 12/01/20 18:45 Urine Ketones Neg mg/dL (Negative) 12/01/20 18:45 Urine Blood Neg (Negative) 12/01/20 18:45 Urine Nitrite Neg (Negative) 12/01/20 18:45 Urine Bilirubin Neg (Negative) 12/01/20 18:45 Urine Urobilinogen < 2.0 mg/dL (<2.0) 12/01/20 18:45 Ur Leukocyte Esterase Tr (Negative) 12/01/20 18:45 Urine WBC (Auto) 3.0 /HPF (0.0-6.0) 12/01/20 18:45 Urine RBC (Auto) 1.0 /HPF (0.0-6.0) 12/01/20 18:45 U Epithel Cells (Auto) < 1.0 /HPF (0-13.0) 12/01/20 18:45 Urine Bacteria (Auto) 1+ /HPF (Negative) 11/19/20 19:18 Hyaline Casts 1 /LPF 11/19/20 19:18 Urine Mucus Few /HPF 12/01/20 18:45 Nasal Screen MRSA (PCR) Negative (Negative) 11/20/20 Unknown Urine Opiates Screen Negative 11/19/20 19:18 Urine Methadone Screen Negative 11/19/20 19:18 Ur Barbiturates Screen Negative 11/19/20 19:18 Ur Phencyclidine Scrn Negative 11/19/20 19:18 Ur Amphetamines Screen Negative 11/19/20 19:18 U Benzodiazepines Scrn Negative 11/19/20 19:18 Urine Cocaine Screen Negative 11/19/20 19:18 U Marijuana (THC) Screen Negative 11/19/20 19:18 Drugs of Abuse Note Disclamer 11/19/20 19:18 Coronavirus (PCR) Negative (Negative) 11/27/20 08:45 Blood Type O POSITIVE 11/30/20 15:00 Antibody Screen Negative 11/30/20 15:00 Crossmatch See Detail 11/30/20 15:00 Microbiology: Microbiology 12/01/20 18:46 Peripheral/Venous Blood Culture - Preliminary NO GROWTH AFTER 24 HOURS 12/01/20 18:46 Peripheral/Venous Blood Culture - Preliminary NO GROWTH AFTER 24 HOURS Viramontes/IV: Voiding Method Condom Catheter Active Medications - Current Medications Current Medications: Generic Name Dose Route Start Last Admin Trade Name Freq PRN Reason Stop Dose Admin Acetaminophen 650 mg 11/20/20 14:00 12/02/20 23:04 Acetaminophen 325 Mg Tab PO 650 mg Q6H PRN Administration Pain, Mild (1-3) Albuterol 2.5 mg 11/30/20 12:00 Albuterol 2.5 Mg/3 Ml Nebu IH Q4HRT PRN Shortness Of Breath Folic Acid 1 mg 11/20/20 10:00 12/02/20 09:42 Folic Acid 1 Mg Tab PO Not Given QDAY JANNETH Hydralazine HCl 10 mg 11/19/20 18:18 Hydralazine 20 Mg/1 Ml Inj IV Q4HR PRN Hypertension Cefepime HCl 2 gm in 100 mls @ 200 mls/hr 12/01/20 17:00 12/03/20 00:00 Cefepime/Ns 2 Gm/100 Ml IV 200 mls/hr Q8H JANNETH Administration Protocol Sodium Chloride 1,000 mls @ 100 mls/hr 12/01/20 18:15 12/02/20 23:59 Nacl 0.9% 1000 Ml IV 100 mls/hr DIRECT JANNETH Administration Metronidazole 500 mg in 100 mls @ 100 mls/hr 12/02/20 13:00 12/03/20 04:36 Flagyl 500 Mg/100 Ml IV 100 mls/hr Q8H JANNETH Administration Protocol Lorazepam 2 mg 11/27/20 12:30 12/02/20 23:05 Lorazepam 2 Mg/Ml Vial IV 2 mg Q4H PRN Administration Agitation Losartan Potassium 100 mg 11/20/20 10:00 12/02/20 09:41 Losartan 50 Mg Tab PO Not Given QDAY JANNETH Metoprolol Tartrate 12.5 mg 11/28/20 22:00 12/02/20 22:28 Metoprolol Tartrate 25 Mg Tab PO 12.5 mg BID JANNETH Administration Morphine Sulfate 2 mg 11/20/20 10:30 12/03/20 04:37 Morphine 2 Mg/1 Ml Inj IV 2 mg Q6H PRN Administration Pain, Moderate (4-6) Ondansetron HCl 4 mg 11/19/20 18:11 11/30/20 18:37 Ondansetron 4 Mg/2 Ml Inj IV 4 mg Q8H PRN Administration Nausea And Vomiting Pantoprazole Sodium 40 mg 12/02/20 10:00 12/02/20 09:42 Pantoprazole 40 Mg Inj IV Not Given QDAY JANNETH Sodium Bicarbonate 1,300 mg 11/29/20 20:00 12/02/20 19:45 Sodium Bicarbonate 650 Mg Tab PO 1,300 mg TID JANNETH Administration Sodium Chloride 10 ml 11/19/20 22:00 12/02/20 23:11 Sodium Chloride 0.9% 10 Ml Flush Syringe IV 10 ml BID JANNETH Administration Sodium Chloride 10 ml 11/19/20 19:11 11/30/20 18:37 Sodium Chloride 0.9% 10 Ml Flush Syringe IV 10 ml PRN PRN Administration LINE FLUSH Nutrition/Malnutrition Assess - Dietary Evaluation Nutrition/Malnutrition Findings: Nutrition Notes Start: 11/20/20 12:00 Freq: Status: Active Protocol: Document 11/29/20 11:46 CW (Rec: 11/29/20 11:51 CW [id number]) Nutrition Notes Initial or Follow up Reassessment Current Diagnosis Sepsis,Hypertension, Hyperlipidemia Other Pertinent Diagnosis Acute alcoholic pancreatitis, EtOH withdrawal delirium, ARF, GERD Current Diet Regular Labs/Tests 11/28 Na 147 Pertinent Medications lasix D5 1/2 NS at 150 ml/hr Height 5 ft 10 in Weight 86.8 kg Kyle Body Weight (kg) 75.45 BMI 27.4 Weight change and time frame will monitor for weight trend. weight change may be related to fluid Weight Status Overweight Subjective/Other Information F/U for intakes and need for ONS. Lunch observed at beside. Pt consumed <25% of meal. Pt reports ususally eating a bit of fruit at meals. Encouraged pt to drink ONS. Per order, pt is vegetarian, diet order altered to highlight this fact . Emphasized importance of drinking ONS. No ONS observed in room; will restart and monitor for ONS build up. Percent of energy/protein needs met: neglible Burn Absent Trauma Absent Current % PO Negligible Minimum of two criteria No Energy Intake (severe) < or equal to 50% Estimated Energy Requirement > or equal to 5 days #2 Nutrition Diagnosis Inadequate oral intake Diagnosis Progress(for reassessment Continues documentation) Is patient on ventilator? No Is Patient Ambulatory and/or Out of Bed No REE-(Barnhart-St. Jeor-confined to bed) Calculation Used for Recommendations Barnhart-St Jeor Additional Notes Pro needs 1-1.2g/k-98g/ day Fluid needs 1ml/kcal Nutrition Intervention Change Diet Order: Change diet to vegetarian diet Add Supplement/Snack (indicate name/kcal Ensure Enlive BID /protein ) Provides kCal: 700 Provides Protein (gm) 40 Goal #1 Meet 75% of energy and protein needs Anticipated Discharge Needs: CHO-controlled, low fat diet Follow-Up By: 12/03/20 Additional Comments F/U for intakes and need for ONS
[2020-12-03] MEDS: FOLIC ACID 1 MG TAB PO SCH (09:00)
[2020-12-03] MEDS: PANTOPRAZOLE 40 MG INJ IV SCH (09:00)
[2020-12-03] MEDS: CEFEPIME/NS 2 GM/100 ML 2 GM/100 ML BAG IV SCH ×2 (09:00)
[2020-12-03] MEDS: LOSARTAN 50 MG TAB PO SCH (09:00)
[2020-12-03] MEDS: SODIUM BICARBONATE 650 MG TAB PO SCH ×3 (09:00→21:11)
[2020-12-03] MEDS: METOPROLOL TARTRATE 25 MG TAB PO SCH ×2 (09:00→21:12)
[2020-12-03] MEDS: SODIUM CHLORIDE 0.9% 1000 ML 1,000 ML IV SCH ×2 (11:35→21:13)
--- NOTE | 2020-12-03 12:40 | Progress Note ---
Assessment and Plan awaiting chemistries on fluid creat normal many times its high if this was urinary ascits will see what send out studies show Subjective Date of service: 12/03/20 Principal diagnosis: EtOH dependence Objective - Constitutional Vitals: Vital Signs - 12hr 12/03/20 12/03/20 12/03/20 01:00 02:00 02:06 Temperature Pulse Rate 91 H 94 H 94 H Pulse Rate [ From Monitor] Respiratory 37 H 42 H 48 H Rate Blood Pressure 95/53 110/59 110/59 O2 Sat by Pulse 97 94 95 Oximetry 12/03/20 12/03/20 12/03/20 02:10 02:16 02:20 Temperature Pulse Rate 95 H 95 H 94 H Pulse Rate [ From Monitor] Respiratory 47 H 45 H 46 H Rate Blood Pressure 110/59 110/59 110/59 O2 Sat by Pulse 97 95 95 Oximetry 12/03/20 12/03/20 12/03/20 02:26 02:30 02:36 Temperature Pulse Rate 91 H 94 H 91 H Pulse Rate [ From Monitor] Respiratory 42 H 48 H 40 H Rate Blood Pressure 110/59 110/59 110/59 O2 Sat by Pulse 96 97 97 Oximetry 12/03/20 12/03/20 12/03/20 02:40 02:46 02:50 Temperature Pulse Rate 99 H 90 89 Pulse Rate [ From Monitor] Respiratory 41 H 37 H 40 H Rate Blood Pressure 110/59 110/59 110/59 O2 Sat by Pulse 97 97 98 Oximetry 12/03/20 12/03/20 12/03/20 02:56 03:00 03:06 Temperature Pulse Rate 88 94 H 90 Pulse Rate [ From Monitor] Respiratory 39 H 40 H 36 H Rate Blood Pressure 110/59 94/53 94/53 O2 Sat by Pulse 98 96 Oximetry 12/03/20 12/03/20 12/03/20 04:00 04:05 04:37 Temperature 99.2 F Pulse Rate 81 91 H Pulse Rate [ 81 From Monitor] Respiratory 32 H 40 H Rate Blood Pressure 96/59 O2 Sat by Pulse 98 Oximetry 12/03/20 12/03/20 12/03/20 05:00 05:07 06:00 Temperature Pulse Rate 86 77 Pulse Rate [ From Monitor] Respiratory 35 H 35 H 36 H Rate Blood Pressure 111/71 107/68 O2 Sat by Pulse 100 100 Oximetry 12/03/20 12/03/20 12/03/20 07:00 08:00 09:00 Temperature 98.9 F Pulse Rate 88 95 H 99 H Pulse Rate [ 81 From Monitor] Respiratory 38 H 45 H 44 H Rate Blood Pressure 106/63 110/69 113/70 O2 Sat by Pulse 99 99 93 Oximetry 12/03/20 12/03/20 12/03/20 10:00 11:00 12:00 Temperature 99 F Pulse Rate 77 72 82 Pulse Rate [ 81 From Monitor] Respiratory 36 H 33 H 39 H Rate Blood Pressure 96/63 102/62 108/63 O2 Sat by Pulse 97 98 97 Oximetry - Labs CBC & Chem 7: 12/03/20 04:27 12/02/20 07:01 Labs: Abnormal lab results 12/03/20 12/03/20 Range/Units 04:27 07:27 WBC 21.8 H (4.5-11.0) K/mm3 RBC 3.01 L (3.65-5.03) M/mm3 Hgb 7.8 L (11.8-15.2) gm/dl Hct 24.0 L (35.5-45.6) % MCV 80 L (84-94) fl MCH 26 L (28-32) pg RDW 18.3 H (13.2-15.2) % Plt Count 567 H (140-440) K/mm3 Seg Neuts % (Manual) 76.0 H (40.0-70.0) % Lymphocytes % (Manual) 5.0 L (13.4-35.0) % Nucleated RBC % 2.0 H (0.0-0.9) % Seg Neutrophils # Man 16.6 H (1.8-7.7) K/mm3 Lymphocytes # (Manual) 1.1 L (1.2-5.4) K/mm3 Monocytes # (Manual) 1.3 H (0.0-0.8) K/mm3 POC Glucose 177 H (70-105) mg/dL Medications & Allergies - Medications Allergies/Adverse Reactions: Allergies No Known Allergies Allergy (Verified 10/25/19 12:42) Home Medications: Home Medications Medication Instructions Recorded Confirmed Last Taken Type Folic Acid [Folvite] 1 mg PO QDAY #30 tablet 10/27/19 11/20/20 11/18/20 Rx Colchicine 0.6 mg PO TID 11/20/20 11/20/20 Unknown History Cyanocobalamin (Vitamin B-12) 100 mcg PO QDAY 11/20/20 11/20/20 11/18/20 History Hydrochlorothiazide 12.5 mg PO QDAY 11/20/20 11/20/20 11/18/20 History Lipase/Protease/Amylase [Creon Dr 1 cap PO TID 11/20/20 11/20/20 11/18/20 History 6,000 Units] Losartan Potassium 100 mg PO QDAY 11/20/20 11/20/20 11/18/20 History Meloxicam 15 mg PO DAILY 11/20/20 11/20/20 11/18/20 History Pantoprazole [Protonix TAB] 40 mg PO DAILY 11/20/20 11/20/20 11/18/20 History Potassium Gluconate [Potassium] 595 mg PO QDAY 11/20/20 11/20/20 11/18/20 History allopurinoL [Zyloprim] 300 mg PO DAILY 11/20/20 11/20/20 11/18/20 History amLODIPine 10 mg PO DAILY 11/20/20 11/20/20 11/18/20 11:00 History Active Medications: Generic Name Dose Route Start Last Admin Trade Name Freq PRN Reason Stop Dose Admin Acetaminophen 650 mg 11/20/20 14:00 12/02/20 23:04 Acetaminophen 325 Mg Tab PO 650 mg Q6H PRN Administration Pain, Mild (1-3) Albuterol 2.5 mg 11/30/20 12:00 Albuterol 2.5 Mg/3 Ml Nebu IH Q4HRT PRN Shortness Of Breath Folic Acid 1 mg 11/20/20 10:00 12/03/20 09:00 Folic Acid 1 Mg Tab PO 1 mg QDAY JANNETH Administration Hydralazine HCl 10 mg 11/19/20 18:18 Hydralazine 20 Mg/1 Ml Inj IV Q4HR PRN Hypertension Cefepime HCl 2 gm in 100 mls @ 200 mls/hr 12/01/20 17:00 12/03/20 09:00 Cefepime/Ns 2 Gm/100 Ml IV 200 mls/hr Q8H JANNETH Administration Protocol Sodium Chloride 1,000 mls @ 100 mls/hr 12/01/20 18:15 12/03/20 11:35 Nacl 0.9% 1000 Ml IV 100 mls/hr DIRECT JANNETH Administration Metronidazole 500 mg in 100 mls @ 100 mls/hr 12/02/20 13:00 12/03/20 04:36 Flagyl 500 Mg/100 Ml IV 100 mls/hr Q8H JANNETH Administration Protocol Lorazepam 2 mg 11/27/20 12:30 12/02/20 23:05 Lorazepam 2 Mg/Ml Vial IV 2 mg Q4H PRN Administration Agitation Losartan Potassium 100 mg 11/20/20 10:00 12/03/20 09:00 Losartan 50 Mg Tab PO 100 mg QDAY JANNETH Administration Metoprolol Tartrate 12.5 mg 11/28/20 22:00 12/03/20 09:00 Metoprolol Tartrate 25 Mg Tab PO 12.5 mg BID JANNETH Administration Morphine Sulfate 2 mg 11/20/20 10:30 12/03/20 11:35 Morphine 2 Mg/1 Ml Inj IV 2 mg Q6H PRN Administration Pain, Moderate (4-6) Ondansetron HCl 4 mg 11/19/20 18:11 11/30/20 18:37 Ondansetron 4 Mg/2 Ml Inj IV 4 mg Q8H PRN Administration Nausea And Vomiting Pantoprazole Sodium 40 mg 12/02/20 10:00 12/03/20 09:00 Pantoprazole 40 Mg Inj IV 40 mg QDAY JANNETH Administration Sodium Bicarbonate 1,300 mg 11/29/20 20:00 12/03/20 09:00 Sodium Bicarbonate 650 Mg Tab PO 1,300 mg TID JANNETH Administration Sodium Chloride 10 ml 11/19/20 22:00 12/03/20 09:00 Sodium Chloride 0.9% 10 Ml Flush Syringe IV 10 ml BID JANNETH Administration Sodium Chloride 10 ml 11/19/20 19:11 11/30/20 18:37 Sodium Chloride 0.9% 10 Ml Flush Syringe IV 10 ml PRN PRN Administration LINE FLUSH HEART Score - HEART Score Troponin: Troponin T < 0.010 ng/mL (0.00-0.029) 11/19/20 22:51
--- NOTE | 2020-12-03 12:48 | Progress Note ---
Assessment and Plan Cultures: 11/27/2020 COVID-19 PCR: Negative 11/19/2020 blood culture: No growth 11/19/2020 urine culture: E. coli 12/01/2020 blood culture: No growth 12/02/2020 IR drainage culture: in process A/P: 60-year-old male with gastroesophageal reflux disease, hypertension, hyperlipidemia, alcohol abuse admitted to the hospital on 11/19/2020 with abdominal pain from suspected pancreatitis and alcohol withdrawal: Sepsis: Source likely large multifocal fluid and gas collections in the right pararenal space. #Large multifocal fluid and gas collections in the right pararenal space: etiology is suspected renal calyceal rupture. Urology and IR following. Underwent IR drainage 12/02/2020 with about 500 cc of pinkish material drained. #Subcapsular splenic collection: new, etiology unclear. #Acute alcohol withdrawal, chronic alcohol abuse #JOHN: Resolved Recs: continue Cefepime + Flagyl f/u IR drainage cultures noted plans for repeat imaging and additional drainage as necessary Abdulkadir Helton MD, FACP [facility], [facility] O: [phone] F: [phone] Subjective Date of service: 12/03/20 Principal diagnosis: EtOH dependence Interval history: Fever x 1. Had IR drain placement yesterday in R pararenal space. Urology following. Patient reports nausea, vomiting. Family member at bedside. Objective - Exam Narrative Exam: Physical Exam: Constitutional: awake, alert Head, Ears, Nose: Normocephalic, atraumatic. External ears, nose normal Eyes: Conjunctivae/corneas clear. No icterus. No ptosis. Neck: Supple, no meningeal signs Cardiovascular: S1, S2 normal. Respiratory: Good air entry, clear to auscultation bilaterally GI: R sided drain + with purulent appearing fluid. bowel sounds + Musculoskeletal: No pedal edema, no cyanosis. Skin: No rash or abscess Hem/Lymphatic: No palpable cervical or supraclavicular nodes. No lymphangitis Psych: no agitation Neurological: Awake, alert - Constitutional Vitals: Vital Signs Temp Pulse Resp BP Pulse Ox 99 F 81 32 H 108/63 98 12/03/20 12:00 12/03/20 12:00 12/03/20 12:00 12/03/20 12:00 12/03/20 12:00 Temperature -Last 24 Hours Temperature 99 F Temperature 98.9 F Temperature 99.2 F Temperature 101.3 F Temperature 98.2 F Temperature 99.2 F - Labs CBC & Chem 7: 12/03/20 04:27 12/02/20 07:01 Labs: Abnormal lab results 12/03/20 12/03/20 Range/Units 04:27 07:27 WBC 21.8 H (4.5-11.0) K/mm3 RBC 3.01 L (3.65-5.03) M/mm3 Hgb 7.8 L (11.8-15.2) gm/dl Hct 24.0 L (35.5-45.6) % MCV 80 L (84-94) fl MCH 26 L (28-32) pg RDW 18.3 H (13.2-15.2) % Plt Count 567 H (140-440) K/mm3 Seg Neuts % (Manual) 76.0 H (40.0-70.0) % Lymphocytes % (Manual) 5.0 L (13.4-35.0) % Nucleated RBC % 2.0 H (0.0-0.9) % Seg Neutrophils # Man 16.6 H (1.8-7.7) K/mm3 Lymphocytes # (Manual) 1.1 L (1.2-5.4) K/mm3 Monocytes # (Manual) 1.3 H (0.0-0.8) K/mm3 POC Glucose 177 H (70-105) mg/dL
[2020-12-03] MEDS: PIPERACIL/TAZOBACTA 4.5/NS 100 4.5 GM/100 ML VIAL IV SCH ×2 (16:26→21:13)
--- NOTE | 2020-12-03 16:36 | Event Note ---
Date: 12/03/20 Patient doing better. Right flank discomfort has improved. Having some drainage from right flank drain which is grayish/brown serous material. Overnight output has decreased. Plan for reassessment tomorrow with CT scan. Patient understands. Based on CT scan, can consider further drainage. Chemistries of fluid are pending.
[2020-12-03 17:02] LABS: Blood Urea Nitrogen 7 mg/dL (9-20); Calcium 8.1 mg/dL (8.4-10.2); Hemolysis Index 41
[2020-12-03 17:07] LABS: BUN/Creatinine Ratio 14
[2020-12-04] MEDS: ACETAMINOPHEN 325 MG TAB PO PRN ×3 (01:39→20:45)
[2020-12-04 04:46] LABS: Blood Urea Nitrogen 8 mg/dL (9-20); Calcium 7.6 mg/dL (8.4-10.2); Hemolysis Index 8
[2020-12-04 05:08] LABS: BUN/Creatinine Ratio 13
[2020-12-04] MEDS: PIPERACIL/TAZOBACTA 4.5/NS 100 4.5 GM/100 ML VIAL IV SCH ×4 (06:55→21:06)
[2020-12-04] MEDS ORDERED: HEPARIN 5,000 UNIT/1 ML VIAL ONE (07:13)
[2020-12-04] MEDS: PANTOPRAZOLE 40 MG TAB PO SCH (07:31)
[2020-12-04] MEDS: SODIUM BICARBONATE 650 MG TAB PO SCH ×3 (07:37→20:45)
[2020-12-04] MEDS: SODIUM CHLORIDE 0.9% 1000 ML 1,000 ML IV SCH ×2 (08:51→20:40)
[2020-12-04] MEDS: FOLIC ACID 1 MG TAB PO SCH (09:30)
[2020-12-04] MEDS: LOSARTAN 50 MG TAB PO SCH (09:31)
[2020-12-04] MEDS: METOPROLOL TARTRATE 25 MG TAB PO SCH ×2 (09:32→22:00)
--- NOTE | 2020-12-04 10:23 | Progress Note ---
Assessment and Plan - Patient Problems (1) Intra-abdominal abscess Current Visit: Yes Status: Acute Plan to address problem: 1) CBC today 2) IV antibiotics based on right flank fluid C&S 3) Repeat CT abdomen tomorrow with possible percutaneous drainage of LUQ fluid collection Subjective Date of service: 12/04/20 Patient Reports: Positive: no new complaints (Feels bloated.), pain is less, flatus, no bowel movement (Feels "bloated) Objective Vital Signs - 12hr 12/03/20 12/04/20 12/04/20 23:00 00:00 01:00 Temperature 98.7 F Pulse Rate 69 69 67 Respiratory 18 Rate Blood Pressure 86/47 83/46 87/51 O2 Sat by Pulse 100 100 96 Oximetry 12/04/20 12/04/20 12/04/20 02:01 03:00 04:00 Temperature 98.7 F Pulse Rate 72 69 66 Respiratory 18 Rate Blood Pressure 89/55 87/50 81/48 O2 Sat by Pulse 100 100 100 Oximetry 12/04/20 12/04/20 12/04/20 05:00 06:00 07:00 Temperature Pulse Rate 63 72 64 Respiratory Rate Blood Pressure 89/50 95/56 89/56 O2 Sat by Pulse 99 100 100 Oximetry 12/04/20 12/04/20 12/04/20 07:15 08:45 09:31 Temperature 97.5 F L Pulse Rate 77 Respiratory Rate Blood Pressure 92/60 O2 Sat by Pulse 100 Oximetry 12/04/20 09:32 Temperature Pulse Rate 77 Respiratory Rate Blood Pressure 92/60 O2 Sat by Pulse Oximetry - Abdomen soft, bowel sounds hypoactive (Minimally TTP without rebound or guarding.) - Labs 12/03/20 04:27 12/04/20 03:52 Diabetes panel 12/03/20 12/04/20 Range/Units 15:40 03:52 Sodium 139 137 (137-145) mmol/L Potassium 3.8 3.2 L (3.6-5.0) mmol/L Chloride 106.9 105.2 (98-107) mmol/L Carbon Dioxide 19 L 26 D (22-30) mmol/L BUN 7 L 8 L (9-20) mg/dL Creatinine 0.5 L 0.6 L (0.8-1.3) mg/dL Glucose 90 91 (75-100) mg/dL Calcium 8.1 L 7.6 L (8.4-10.2) mg/dL Calcium panel 12/03/20 12/04/20 Range/Units 15:40 03:52 Calcium 8.1 L 7.6 L (8.4-10.2) mg/dL Phosphorus 2.30 L 2.40 L (2.5-4.5) mg/dL Pituitary panel 12/03/20 12/04/20 Range/Units 15:40 03:52 Sodium 139 137 (137-145) mmol/L Potassium 3.8 3.2 L (3.6-5.0) mmol/L Chloride 106.9 105.2 (98-107) mmol/L Carbon Dioxide 19 L 26 D (22-30) mmol/L BUN 7 L 8 L (9-20) mg/dL Creatinine 0.5 L 0.6 L (0.8-1.3) mg/dL Glucose 90 91 (75-100) mg/dL Calcium 8.1 L 7.6 L (8.4-10.2) mg/dL Adrenal panel 12/03/20 12/04/20 Range/Units 15:40 03:52 Sodium 139 137 (137-145) mmol/L Potassium 3.8 3.2 L (3.6-5.0) mmol/L Chloride 106.9 105.2 (98-107) mmol/L Carbon Dioxide 19 L 26 D (22-30) mmol/L BUN 7 L 8 L (9-20) mg/dL Creatinine 0.5 L 0.6 L (0.8-1.3) mg/dL Glucose 90 91 (75-100) mg/dL Calcium 8.1 L 7.6 L (8.4-10.2) mg/dL
--- NOTE | 2020-12-04 10:32 | Progress Note ---
Assessment and Plan Assessment and plan: 60-year-old male patient who was initially admitted with alcohol withdrawal symptoms, chronic pancreatitis, on CIWA protocol, patient also had urinary tract infection with E. coli Completed treatment, and patient is waiting for subacute rehab placement. Yesterday patient developed abdominal pain with mild distention with severe nausea. CT abdomen and pelvis with contrast was obtained Which showed multi focal fluid and gas collection around pararenal upper abdomen and splenic area. Patient was started on IV antibiotics cefepime, vancomycin and IR evaluated the patient s/p CT-guided placement of 12 [place] APD drain in the right retroperitoneal fluid collection 12/02/2020 Surgical cultures gram-negative rods, urine cultures Enterococcus, ID discontinued cefepime Flagyl And started Zosyn. CT abdomen and pelvis with contrast 12/04/2020; -Decreased right posterior pararenal space fluid collection with drainage catheter in place -Persistent left upper quadrant fluid collection -Persistent subcapsular fluid collection involving the spleen -Patchy parenchymal changes both lower lobes with bilateral pleural effusion -Patchy enhancement of right kidney worrisome for inflammatory process pyelonep hritis -Persistent small posterior fluid collection right lateral abdomen Interventional radiologist, urologist, surgery, ID following the patient. --Multifocal fluid and gas collection[pararenal, upper abdomen, splenic area] Current Visit: No Status: Acute Interventional radiologist is following s/p CT-guided placement of 12 [place] APD drain in the right retroperitoneal fluid collection 12/02/2020 per IR Continue supportive care, follow fluid analysis and cultures Follow-up CT scan abdomen with contrast was obtained 12/04/2020, Findings as above Interventional radiologist, ID, urology, general surgery following the patient --Severe sepsis/intra-abdominal infection Current Visit: No Status: Acute. Recent UTI, pancreatitis Today , Surgical cultures today gram-negative rods urine cultures Enterococcus; ID changed the antibiotics to Zosyn . --Hypokalemia/hypophosphatemia/hypomagnesemia; Current Visit: No Status: Acute; Will managed with oral KCl, IV magnesium sulfate, IV K-Phos Closely monitor electrolytes --Anemia; Hb today 7.8 Current Visit: No Status: Acute. Stool for occult blood negative Received 1 unit of PRBC transfusion, --Hypophosphatemia/hypokalemia; Current Visit: No Status: Acute Monitor electrolytes --Alcohol withdrawal delirium Current Visit: No Status: Acute Symptoms significantly improved IV Ativan as needed --Acute kidney injury; Current Visit: Yes Status: Acute Vasomotor nephropathy, resolved --History of chronic ETOH abuse Current Visit: No Status: Chronic Education given to the patient advised to quit Also advised to seek alcohol rehabilitation And alcohol Anonymous support group When medically stable --Hypertension Current Visit: No Status: Chronic Moderate control continue current antihypertensives --Ongoing tobacco use Current Visit: No Status: Chronic Smoking cessation counseling Strongly advised nicotine patch. --Severe protein calorie malnutrition Current Visit: No Status: Acute Hypoalbuminemia , albumin 2.8 Nutrition supplements, nutrition consult and supportive care -- Metabolic acidosis Current Visit: Yes Status: Acute Plan to address problem: Secondary to uremia as well as chronic pancreatitis treat underlying etiology. --DVT prophylaxis; Current Visit: Yes Status: Acute SCDs,No pharmacological anticoagulation in view of possible hematoma on CT abdomen And anemia PT re evaluated the patient on 12/02/2020; Recommended subacute rehab We will closely monitor the patient and adjust the management as needed Plan of care reviewed with the patient and his nurse DC planning; subacute rehab when medically stable The high probability of a clinically significant, sudden or life threatening deterioration of the [multi] system(s) required my full and direct attention, intervention and personal management. The aggregate critical care time was [35] minutes. This time is in addition to time spent performing reported p rocedures but includes the following: [x] Data Review and interpretation [x] Patient assessment and monitoring of vital signs [x] Documentation [x] Medication orders and management Brief history and daily hospital course: 60-year-old male patient was admitted with alcohol withdrawal symptoms On CIWA protocol patient has E. coli UTI completed treatment with antibiotics COVID-19 test is negative, waiting for placement however on 12/01/2020 Patient developed sudden abdominal pain, CT scan showed multiple loculated collections, sepsis IR Dr. Dugan, urology disposition Home and ID Dr. Garcia was consulted, IR is planning CT-guided aspiration Try to contact daughter Huong Hua, unable to reach left a message and requested to call back 11/20/2020; patient feels slightly better, no significant withdrawal symptoms Patient is on CIWA protocol, stable to be transferred out of [facility] to medical floor 11/21/2020; patient has severe agitation tremulousness, patient is on CIWA protocol Closely monitor withdrawal symptoms, adjust the medications as needed in the morning equal in both upper Advance diet to regular as tolerated. I called patient's mother and also patient's daughter Ms. Huong Hua at [phone] 11/22/2020; Patient continues to be agitated confused mumbling, On CIWA protocol, restraint for safety. E. coli UTI on Zosyn Called again patient's daughter next of kin Ms. Huong Hua at [phone][number obtained from sample case porter Antonieta Gilda] Did not cone picker the phone I left a voicemail again today to discuss about Mr. Parada's condition and treatment plan 11/23/2020 Patient continues to be agitated Resumed service 11/26/2020; Patient still has mild alcohol withdrawal symptoms Restraints for safety 11/27/2020; Patient is off CIWA protocol and restraints PT OT evaluated, PT recommending subacute rehab 11/28/2020; today patient has some mild shortness of breath and wheezing Tachycardia heart rate in 100 -110 , alert awake oriented x3 Possible fluid overload, give 1 dose of Lasix IV, checks chest x-ray 11/29/2020; patient is more alert and awake, no shortness of breath No alcohol withdrawal symptoms, pending subacute rehab placemen 11/30/2020; Anemia patient's hemoglobin dropped to 6.9, transfuse 1 unit PRBC Stool for occult blood, GI consult if needed 12/01/2020; stool guaiac negative Hb improved to 8.1, complains of some abdominal pain and discomfort Will check CT abdomen and pelvis Pending placementI IAdvised to quit alcohol intake CT abdomen and pelvis multifocal fluid collection IR/urology/ID were consulted, started antibiotics IR recommend CT-guided drainage 12/02/2020; CT-guided drainage pain, tried to contact and next of kin daughter Ms. Huong Hua at [phone][number obtained from sample case porter Ms. Vo] Did not cone picker the phone, left message to call back 12/03/2020; patient feels slightly better CT-guided drain placement yesterday per IR ID changed antibiotics to Zosyn Reevaluation by PT, recommend subacute rehab DC planning per case management We will discharge to subacute rehab when medically stable 12/04/2020; follow-up CT abdomen and pelvis 12/04/2020 Findings as above, persistent fluid collections in multiple areas History Interval history: Patient has hypokalemia, hypomagnesemia and hypophosphatemia Will replenish per protocol, monitor electrolytes Patient underwent repeat CT abdomen and pelvis today Hospitalist Physical - Constitutional Vitals: Temp Pulse Resp BP Pulse Ox 97.5 F L 77 30 H 92/55 99 12/04/20 07:15 12/04/20 10:00 12/04/20 10:00 12/04/20 10:00 12/04/20 10:00 General appearance: Present: no acute distress, well-nourished - EENT Eyes: Present: PERRL, EOM intact - Neck Neck: Present: supple, normal ROM - Respiratory Respiratory effort: normal Respiratory: bilateral: diminished, negative: rales, rhonchi, wheezing - Cardiovascular Rhythm: regular Heart Sounds: Present: S1 & S2 - Extremities Extremities: no ischemia, No edema - Abdominal General gastrointestinal: soft, non-tender, non-distended, normal bowel sounds, other (Abdominal drain in place) - Integumentary Integumentary: Present: clear, warm - Psychiatric Psychiatric: appropriate mood/affect, cooperative - Neurologic Neurologic: moves all extremities HEART Score - HEART Score Troponin: Troponin T < 0.010 ng/mL (0.00-0.029) 11/19/20 22:51 Results - Labs CBC & Chem 7: 12/03/20 04:27 12/04/20 03:52 Labs: Laboratory Last Values WBC 21.8 K/mm3 (4.5-11.0) H 12/03/20 04:27 RBC 3.01 M/mm3 (3.65-5.03) L 12/03/20 04:27 Hgb 7.8 gm/dl (11.8-15.2) L 12/03/20 04:27 Hct 24.0 % (35.5-45.6) L 12/03/20 04:27 MCV 80 fl (84-94) L 12/03/20 04:27 MCH 26 pg (28-32) L 12/03/20 04:27 MCHC 33 % (32-34) 12/03/20 04:27 RDW 18.3 % (13.2-15.2) H 12/03/20 04:27 Plt Count 567 K/mm3 (140-440) H 12/03/20 04:27 Lymph % (Auto) 10.1 % (13.4-35.0) L 11/25/20 04:14 [place] % (Auto) 6.5 % (0.0-7.3) 11/25/20 04:14 Eos % (Auto) 0.8 % (0.0-4.3) 11/25/20 04:14 Baso % (Auto) 0.1 % (0.0-1.8) 11/25/20 04:14 Lymph # (Auto) Certified Hyperbaric Technician 12/02/20 07:01 [place] # (Auto) 1.0 K/mm3 (0.0-0.8) H 11/25/20 04:14 Eos # (Auto) 0.1 K/mm3 (0.0-0.4) 11/25/20 04:14 Baso # (Auto) 0.0 K/mm3 (0.0-0.1) 11/25/20 04:14 Add Manual Diff Complete 12/03/20 04:27 Total Counted 100 12/03/20 04:27 Seg Neutrophils % 82.5 % (40.0-70.0) H 11/25/20 04:14 Seg Neuts % (Manual) 76.0 % (40.0-70.0) H 12/03/20 04:27 Band Neutrophils % 12.0 % 12/03/20 04:27 Lymphocytes % (Manual) 5.0 % (13.4-35.0) L 12/03/20 04:27 Reactive Lymphs % (Man) 2.0 % 11/30/20 08:40 Monocytes % (Manual) 6.0 % (0.0-7.3) 12/03/20 04:27 Eosinophils % (Manual) 1.0 % (0.0-4.3) 12/02/20 07:01 Metamyelocytes % 1.0 % 12/03/20 04:27 Myelocytes % 2.0 % 12/02/20 07:01 Nucleated RBC % 2.0 % (0.0-0.9) H 12/03/20 04:27 Seg Neutrophils # 12.3 K/mm3 (1.8-7.7) H 11/25/20 04:14 Seg Neutrophils # Man 16.6 K/mm3 (1.8-7.7) H 12/03/20 04:27 Band Neutrophils # 2.6 K/mm3 12/03/20 04:27 Lymphocytes # (Manual) 1.1 K/mm3 (1.2-5.4) L 12/03/20 04:27 Abs React Lymphs (Man) 0.0 K/mm3 12/03/20 04:27 Monocytes # (Manual) 1.3 K/mm3 (0.0-0.8) H 12/03/20 04:27 Eosinophils # (Manual) 0.0 K/mm3 (0.0-0.4) 12/03/20 04:27 Basophils # (Manual) 0.0 K/mm3 (0.0-0.1) 12/03/20 04:27 Metamyelocytes # 0.2 K/mm3 12/03/20 04:27 Myelocytes # 0.0 K/mm3 12/03/20 04:27 Promyelocytes # 0.0 K/mm3 12/03/20 04:27 Blast Cells # 0.0 K/mm3 12/03/20 04:27 WBC Morphology Not Reportable 12/03/20 04:27 Hypersegmented Neuts Not Reportable 12/03/20 04:27 Hyposegmented Neuts Not Reportable 12/03/20 04:27 Hypogranular Neuts Not Reportable 12/03/20 04:27 Smudge Cells Not Reportable 12/03/20 04:27 Toxic Granulation Not Reportable 12/03/20 04:27 Toxic Vacuolation Not Reportable 12/03/20 04:27 Dohle Bodies Not Reportable 12/03/20 04:27 Pelger-Huet Anomaly Not Reportable 12/03/20 04:27 Aiden Rods Not Reportable 12/03/20 04:27 Platelet Estimate Consistent w auto 12/03/20 04:27 Clumped Platelets Not Reportable 12/03/20 04:27 Plt Clumps, EDTA Not Reportable 12/03/20 04:27 Large Platelets Not Reportable 12/03/20 04:27 Giant Platelets Not Reportable 12/03/20 04:27 Platelet Satelliting Not Reportable 12/03/20 04:27 Plt Morphology Comment Not Reportable 12/03/20 04:27 RBC Morphology Not Reportable 12/03/20 04:27 Dimorphic RBCs Not Reportable 12/03/20 04:27 Polychromasia Few 12/03/20 04:27 Hypochromasia 2+ 12/03/20 04:27 Poikilocytosis Not Reportable 12/03/20 04:27 Anisocytosis 1+ 12/03/20 04:27 Microcytosis Not Reportable 12/03/20 04:27 Macrocytosis Not Reportable 12/03/20 04:27 Spherocytes Not Reportable 12/03/20 04:27 Pappenheimer Bodies Not Reportable 12/03/20 04:27 Sickle Cells Not Reportable 12/03/20 04:27 Target Cells Few 12/03/20 04:27 Tear Drop Cells Not Reportable 12/03/20 04:27 Ovalocytes Not Reportable 12/03/20 04:27 Stomatocytes Few 12/03/20 04:27 Helmet Cells Not Reportable 12/03/20 04:27 [place] Bodies Not Reportable 12/03/20 04:27 [place] Rings Not Reportable 12/03/20 04:27 [place] Cells Not Reportable 12/03/20 04:27 Bite Cells Not Reportable 12/03/20 04:27 Crenated Cell Not Reportable 12/03/20 04:27 Elliptocytes Not Reportable 12/03/20 04:27 Acanthocytes (Spur) Not Reportable 12/03/20 04:27 Rouleaux Not Reportable 12/03/20 04:27 Hemoglobin C Crystals Not Reportable 12/03/20 04:27 Schistocytes Not Reportable 12/03/20 04:27 Malaria parasites Not Reportable 12/03/20 04:27 Florin Bodies Not Reportable 12/03/20 04:27 Hem Pathologist Commnt No 12/03/20 04:27 PT 15.8 Sec. (12.2-14.9) H 12/01/20 05:53 INR 1.21 (0.87-1.13) H 12/01/20 05:53 APTT 33.7 Sec. (24.2-36.6) 12/01/20 05:53 D-Dimer 1767.06 ng/mlDDU (0-234) H 11/19/20 16:44 ABG pH 7.454 (7.320-7.450) H 11/28/20 17:47 POC ABG pCO2 25.8 mmHg (32.0-48.0) L 11/28/20 17:47 POC ABG pO2 65.5 mmHg (83-108) L 11/28/20 17:47 POC ABG HCO3 17.7 11/28/20 17:47 ABG O2 Saturation 94.3 (0-100) 11/28/20 17:47 POC ABG Base Excess -5.5 11/28/20 17:47 ABG Hemoglobin 7.0 (12.0-17.5) L 11/28/20 17:47 ABG Oxyhemoglobin 92.2 (94-98) L 11/28/20 17:47 ABG Methemoglobin 0.3 (0.0-1.5) 11/28/20 17:47 ABG Sodium 143.6 mmol/L (136.0-145.0) 11/28/20 17:47 ABG Potassium 3.6 mmol/L (3.40-4.50) 11/28/20 17:47 ABG Chloride 117.0 mmol/L (98-107) H 11/28/20 17:47 ABG Glucose 104 mg/dL (65-95) H 11/28/20 17:47 Carboxyhemoglobin 1.9 (0.5-1.5) H 11/28/20 17:47 FiO2 % 21.0 11/28/20 17:47 Sodium 137 mmol/L (137-145) 12/04/20 03:52 Potassium 3.2 mmol/L (3.6-5.0) L 12/04/20 03:52 Chloride 105.2 mmol/L (98-107) 12/04/20 03:52 Carbon Dioxide 26 mmol/L (22-30) D 12/04/20 03:52 Anion Gap 9 mmol/L 12/04/20 03:52 BUN 8 mg/dL (9-20) L 12/04/20 03:52 Creatinine 0.6 mg/dL (0.8-1.3) L 12/04/20 03:52 Estimated GFR > 60 ml/min 12/04/20 03:52 BUN/Creatinine Ratio 13 % 12/04/20 03:52 Glucose 91 mg/dL (75-100) 12/04/20 03:52 POC Glucose 110 mg/dL (70-105) H 12/03/20 11:58 Lactic Acid 3.10 mmol/L (0.7-2.0) H* 11/19/20 18:28 Calcium 7.6 mg/dL (8.4-10.2) L 12/04/20 03:52 Phosphorus 2.40 mg/dL (2.5-4.5) L 12/04/20 03:52 Magnesium 1.60 mg/dL (1.7-2.3) L 12/04/20 03:52 Total Bilirubin 0.40 mg/dL (0.1-1.2) 12/02/20 07:01 Direct Bilirubin 0.2 mg/dL (0-0.2) 11/19/20 16:44 Indirect Bilirubin 0.3 mg/dL 11/19/20 16:44 AST 13 units/L (5-40) 12/02/20 07:01 ALT 7 units/L (7-56) 12/02/20 07:01 Alkaline Phosphatase 122 units/L (35-129) 12/02/20 07:01 Total Creatine Kinase 26 units/L (55-170) L 11/19/20 16:44 CK-MB (CK-2) < 1.0 ng/mL (0.0-4.0) 11/19/20 16:44 CK-MB (CK-2) Rel Index 3.8 (0-4) 11/19/20 16:44 Troponin T < 0.010 ng/mL (0.00-0.029) 11/19/20 22:51 NT-Pro-B Natriuret Pep 454.0 pg/mL (0-900) 11/19/20 16:44 Total Protein 5.5 g/dL (6.3-8.2) L 12/02/20 07:01 Albumin 1.8 g/dL (3.9-5) L 12/02/20 07:01 Albumin/Globulin Ratio 0.5 % 12/02/20 07:01 Amylase 52 units/L (27-131) 12/04/20 03:52 Lipase 16 units/L (13-60) 12/02/20 07:01 Arterial Blood Glucose 104 mg/dL (65-95) H 11/28/20 17:47 Arterial Blood Ionized Calcium 4.5 mg/dL (4.6-5.3) L 11/28/20 17:47 Urine Color Yellow (Yellow) 12/01/20 18:45 Urine Turbidity Clear (Clear) 12/01/20 18:45 Urine pH 6.0 (5.0-7.0) 12/01/20 18:45 Ur Specific [place] 1.036 (1.003-1.030) H 12/01/20 18:45 Urine Protein <15 mg/dl mg/dL (Negative) 12/01/20 18:45 Urine Glucose (UA) Neg mg/dL (Negative) 12/01/20 18:45 Urine Ketones Neg mg/dL (Negative) 12/01/20 18:45 Urine Blood Neg (Negative) 12/01/20 18:45 Urine Nitrite Neg (Negative) 12/01/20 18:45 Urine Bilirubin Neg (Negative) 12/01/20 18:45 Urine Urobilinogen < 2.0 mg/dL (<2.0) 12/01/20 18:45 Ur Leukocyte Esterase Tr (Negative) 12/01/20 18:45 Urine WBC (Auto) 3.0 /HPF (0.0-6.0) 12/01/20 18:45 Urine RBC (Auto) 1.0 /HPF (0.0-6.0) 12/01/20 18:45 U Epithel Cells (Auto) < 1.0 /HPF (0-13.0) 12/01/20 18:45 Urine Bacteria (Auto) 1+ /HPF (Negative) 11/19/20 19:18 Hyaline Casts 1 /LPF 11/19/20 19:18 Urine Mucus Few /HPF 12/01/20 18:45 Nasal Screen MRSA (PCR) Negative (Negative) 11/20/20 Unknown Urine Opiates Screen Negative 11/19/20 19:18 Urine Methadone Screen Negative 11/19/20 19:18 Ur Barbiturates Screen Negative 11/19/20 19:18 Ur Phencyclidine Scrn Negative 11/19/20 19:18 Ur Amphetamines Screen Negative 11/19/20 19:18 U Benzodiazepines Scrn Negative 11/19/20 19:18 Urine Cocaine Screen Negative 11/19/20 19:18 U Marijuana (THC) Screen Negative 11/19/20 19:18 Drugs of Abuse Note Disclamer 11/19/20 19:18 Coronavirus (PCR) Negative (Negative) 11/27/20 08:45 Blood Type O POSITIVE 11/30/20 15:00 Antibody Screen Negative 11/30/20 15:00 Crossmatch See Detail 11/30/20 15:00 Microbiology: Microbiology 12/01/20 18:46 Peripheral/Venous Blood Culture - Preliminary NO GROWTH AFTER 48 HOURS 12/01/20 18:46 Peripheral/Venous Blood Culture - Preliminary NO GROWTH AFTER 48 HOURS 12/02/20 Unknown Abdomen Surgical Culture - Preliminary Gram Negative Bang 12/01/20 Unknown Urine,Clean Catch Urine Culture - Preliminary Enterococcus Species Viramontes/IV: Voiding Method Condom Catheter Active Medications - Current Medications Current Medications: Generic Name Dose Route Start Last Admin Trade Name Freq PRN Reason Stop Dose Admin Acetaminophen 650 mg 11/20/20 14:00 12/04/20 01:39 Acetaminophen 325 Mg Tab PO 650 mg Q6H PRN Administration Pain, Mild (1-3) Albuterol 2.5 mg 11/30/20 12:00 Albuterol 2.5 Mg/3 Ml Nebu IH Q4HRT PRN Shortness Of Breath Folic Acid 1 mg 11/20/20 10:00 12/04/20 09:30 Folic Acid 1 Mg Tab PO 1 mg QDAY JANNETH Administration Hydralazine HCl 10 mg 11/19/20 18:18 Hydralazine 20 Mg/1 Ml Inj IV Q4HR PRN Hypertension Sodium Chloride 1,000 mls @ 100 mls/hr 12/01/20 18:15 12/04/20 08:51 Nacl 0.9% 1000 Ml IV 100 mls/hr DIRECT JANNETH Administration Piperacillin Sod/Tazobactam Sod 4.5 gm in 100 mls @ 200 mls/hr 12/03/20 15:00 12/04/20 09:30 Zosyn/Ns 4.5gm/100ml IV 200 mls/hr Q6H JANNETH Administration Protocol Magnesium Sulfate 2 gm in 50 mls @ 25 mls/hr 12/04/20 10:29 Magnesium Sulfate 2gm/50ml IV 12/04/20 12:28 ONCE ONE Potassium Phosphate 30 mmol/ 510 mls @ 83 mls/hr 12/04/20 10:29 Sodium Chloride IV 12/04/20 16:37 ONCE ONE Lorazepam 2 mg 11/27/20 12:30 12/02/20 23:05 Lorazepam 2 Mg/Ml Vial IV 2 mg Q4H PRN Administration Agitation Losartan Potassium 100 mg 11/20/20 10:00 12/04/20 09:31 Losartan 50 Mg Tab PO Not Given QDAY JANNETH Metoprolol Tartrate 12.5 mg 11/28/20 22:00 12/04/20 09:32 Metoprolol Tartrate 25 Mg Tab PO Not Given BID JANNETH Morphine Sulfate 2 mg 11/20/20 10:30 12/03/20 18:00 Morphine 2 Mg/1 Ml Inj IV 2 mg Q6H PRN Administration Pain, Moderate (4-6) Ondansetron HCl 4 mg 11/19/20 18:11 11/30/20 18:37 Ondansetron 4 Mg/2 Ml Inj IV 4 mg Q8H PRN Administration Nausea And Vomiting Pantoprazole Sodium 40 mg 12/04/20 07:30 12/04/20 07:31 Pantoprazole 40 Mg Tab PO 40 mg QDAC JANNETH Administration Potassium Chloride 40 meq 12/04/20 10:29 Potassium Chloride Er 20 Meq Tab PO 12/04/20 10:30 ONCE ONE Sodium Bicarbonate 1,300 mg 11/29/20 20:00 12/04/20 07:37 Sodium Bicarbonate 650 Mg Tab PO 1,300 mg TID JANNETH Administration Sodium Chloride 10 ml 11/19/20 22:00 12/04/20 09:32 Sodium Chloride 0.9% 10 Ml Flush Syringe IV 10 ml BID JANNETH Administration Sodium Chloride 10 ml 11/19/20 19:11 11/30/20 18:37 Sodium Chloride 0.9% 10 Ml Flush Syringe IV 10 ml PRN PRN Administration LINE FLUSH Nutrition/Malnutrition Assess - Dietary Evaluation Nutrition/Malnutrition Findings: Nutrition Notes Start: 11/20/20 12:00 Freq: Status: Active Protocol: Document 12/03/20 11:30 STEPHANIE (Rec: 12/03/20 11:32 STEPHANIE [id number]) Nutrition Notes Initial or Follow up Reassessment Current Diagnosis Sepsis,Hypertension, Hyperlipidemia Other Pertinent Diagnosis Acute alcoholic pancreatitis, EtOH withdrawal delirium, ARF, GERD Current Diet Regular Labs/Tests Reviewed Pertinent Medications Reviewed Height 5 ft 10 in Weight 89 kg [place] Body Weight (kg) 75.45 BMI 28.1 Weight Status Overweight Subjective/Other Information FU for intakes. Pt reports eating 25% of meals. He stated he has not gotten the ONS yet . Pt states he is okay with having meat in the hospital. Burn Absent Trauma Absent Current % PO Poor (25-49%) Minimum of two criteria No Energy Intake (severe) < or equal to 50% Estimated Energy Requirement > or equal to 5 days #2 Nutrition Diagnosis Inadequate oral intake Diagnosis Progress(for reassessment Continues documentation) Is patient on ventilator? No Is Patient Ambulatory and/or Out of Bed No REE-([place]-St. Jeor-confined to bed) [facility] Additional Notes Pro needs 1-1.2g/k-98g/ day Fluid needs 1ml/kcal Nutrition Intervention Change Diet Order: Continue Add Supplement/Snack (indicate name/kcal Ensure Enlive BID /protein ) Provides kCal: 700 Provides Protein (gm) 40 Goal #1 Meet 75% of energy and protein needs Anticipated Discharge Needs: CHO-controlled, low fat diet Follow-Up By: 12/05/20 Additional Comments FU for intakes and ONS tolerance
[2020-12-04] MEDS ORDERED: MAGNESIUM SULFATE 2 GM/50 ML BAG IV ONE (12:00)
[2020-12-04] MEDS ORDERED: POTASSIUM CHLORIDE ER 20 MEQ TAB PO ONE (12:00)
--- NOTE | 2020-12-04 12:18 | Progress Note ---
Assessment and Plan Cultures: 11/27/2020 COVID-19 PCR: Negative 11/19/2020 blood culture: No growth 11/19/2020 urine culture: E. coli 12/01/2020 blood culture: No growth 12/01/2020 urine culture: Enterococcus 12/02/2020 IR drainage culture: GNR A/P: 60-year-old male with gastroesophageal reflux disease, hypertension, hyperlipidemia, alcohol abuse admitted to the hospital on 11/19/2020 with abdominal pain from suspected pancreatitis and alcohol withdrawal: Sepsis: Source likely large multifocal fluid and gas collections in the right pararenal space. #Large multifocal fluid and gas collections in the right pararenal space: etiology is suspected renal calyceal rupture. Urology and IR following. Underwent IR drainage 12/02/2020 with about 500 cc of pinkish material drained. #Subcapsular splenic collection: new, etiology unclear. #Acute alcohol withdrawal, chronic alcohol abuse #JOHN: Resolved Recs: Continue Zosyn, D2 f/u IR drainage culture noted plans for repeat imaging and additional drainage as necessary Abdulkadir Helton MD, FACP [facility], [facility] O: [phone] F: [phone] Subjective Date of service: 12/04/20 Principal diagnosis: EtOH dependence Interval history: No fever. Nausea +. No rash. Tolerating Zosyn. Objective - Exam Narrative Exam: Physical Exam: Constitutional: awake, alert Head, Ears, Nose: Normocephalic, atraumatic. External ears, nose normal Eyes: Conjunctivae/corneas clear. No icterus. No ptosis. Neck: Supple, no meningeal signs Cardiovascular: S1, S2 normal. Respiratory: Good air entry, clear to auscultation bilaterally GI: R sided drain + with purulent appearing fluid. bowel sounds + Musculoskeletal: No pedal edema, no cyanosis. Skin: No rash or abscess Hem/Lymphatic: No palpable cervical or supraclavicular nodes. No lymphangitis Psych: no agitation Neurological: Awake, alert - Constitutional Vitals: Vital Signs Temp Pulse Resp BP Pulse Ox 97.5 F L 74 35 H 99/66 98 12/04/20 07:15 12/04/20 11:00 12/04/20 11:00 12/04/20 11:00 12/04/20 11:00 Temperature -Last 24 Hours Temperature 97.5 F Temperature 98.7 F Temperature 98.7 F Temperature 97.6 F Temperature 98.8 F Temperature 98.9 F - Labs CBC & Chem 7: 12/03/20 04:27 12/04/20 03:52 Labs: Abnormal lab results 12/03/20 12/03/20 12/04/20 Range/Units 11:58 15:40 03:52 Potassium 3.2 L (3.6-5.0) mmol/L Carbon Dioxide 19 L (22-30) mmol/L BUN 7 L 8 L (9-20) mg/dL Creatinine 0.5 L 0.6 L (0.8-1.3) mg/dL POC Glucose 110 H (70-105) mg/dL Calcium 8.1 L 7.6 L (8.4-10.2) mg/dL Phosphorus 2.30 L 2.40 L (2.5-4.5) mg/dL Magnesium 1.60 L (1.7-2.3) mg/dL
[2020-12-04] MEDS ORDERED: POTASSIUM PHOSPHATE 30 MMOL in SODIUM CHLORIDE 0.9% 500 ML 500 ML IV ONE (12:30)
--- NOTE | 2020-12-04 13:51 | Cat Scan Report ---
CT ABDOMEN AND PELVIS WITH CONTRAST INDICATION / CLINICAL INFORMATION: reassess fluid collections [id number] 100ml. TECHNIQUE: Axial CT images were obtained through the abdomen and pelvis after 100 cc Omnipaque 300 milligrams pe rcent IV contrast. All CT scans at this location are performed using CT dose reduction for ALARA by means of automated exposure control. COMPARISON: None available. FINDINGS: LOWER CHEST: Airspace consolidation lower lobes with moderate-sized bilateral pleural effusions. PERITONEUM: Persistent-recurrent fluid collection left upper quadrant measuring 10.52 x 5.91 cm and e xtending over distance of 4.35 cm. Persistent unchanged subcapsular fluid collection involving the sp esetvan. Significant improvement of the fluid collection in the posterior pararenal space on the right w ith drainage catheter in place. A small fluid collection persist posterior to the right posterior par arenal space measuring 3.8 x 2.2 cm. Small amount of pelvic fluid is present. LIVER: No significant abnormality. GALLBLADDER: Contracted with small amount of surrounding fluid with enhancing wall. BILE DUCTS: No significant abnormality. PANCREAS: Calcific changes involving the pancreas consistent with chronic calcific pancreatitis. Smal l amount of peripancreatic fluid collection noted SPLEEN: No significant abnormality. ADRENALS: No significant abnormality. RIGHT KIDNEY and URETER: Several cystic lesions are present within the kidney. Inflammatory changes o f the right kidney are suspected LEFT KIDNEY and URETER: No significant abnormality. STOMACH and SMALL BOWEL: No significant abnormality. COLON: No significant abnormality. APPENDIX: Not identified LYMPH NODES: No significant adenopathy. AORTA and ARTERIES: Calcified atherosclerotic plaque IVC and VEINS: No significant abnormality. URINARY BLADDER: No significant abnormality. REPRODUCTIVE ORGANS: No significant abnormality. ADDITIONAL FINDINGS: None. SKELETAL SYSTEM: Severe degenerative changes lower lumbar spine IMPRESSION: 1. Decreased right posterior pararenal space fluid collection with drainage catheter in place 2. Persistent left upper quadrant fluid collection 3. Persistent subcapsular fluid collection involving the spleen 4. Persistent small posterior fluid collection right lateral abdomen 5. Patchy parenchyma changes both lower lobes with bilateral pleural effusions 6. Patchy enhancement of the right kidney worrisome for inflammatory process-pyelonephritis Signer Name: Ramírez Will MD Signed: 12/04/2020 1:46 PM Workstation Name: [id number]
[2020-12-04 19:33] LABS: Hematocrit 24.9 % (35.5-45.6); Hemoglobin 8.6 gm/dl (11.8-15.2); Mean Corpuscular HGB Conc 35 % (32-34); Mean Corpuscular Volume 79 fl (84-94); Platelet Count 575 K/mm3 (140-440); Red Blood Count 3.16 M/mm3 (3.65-5.03); Red Cell Distribution Width 18.9 % (13.2-15.2)
[2020-12-04] MEDS ORDERED: MAGNESIUM HYDROXIDE (MOM) ORAL LIQD UDC PO ONE (20:45)
[2020-12-04 22:00] LABS: Anisocytosis 1+; Hypochromasia 1+; Stomatocytes Few; Target Cells Rare; Total Cells Counted 100
[2020-12-04] MEDS: MORPHINE 2 MG/1 ML INJ IV PRN (22:40)
[2020-12-05] MEDS: ACETAMINOPHEN 325 MG TAB PO PRN ×3 (02:36→20:45)
[2020-12-05] MEDS: PIPERACIL/TAZOBACTA 4.5/NS 100 4.5 GM/100 ML VIAL IV SCH ×4 (02:37→21:56)
[2020-12-05] MEDS: MORPHINE 2 MG/1 ML INJ IV PRN ×4 (04:24→23:33)
[2020-12-05] MEDS: SODIUM CHLORIDE 0.9% 1000 ML 1,000 ML IV SCH ×2 (06:58→21:59)
[2020-12-05] MEDS: SODIUM BICARBONATE 650 MG TAB PO SCH ×3 (08:39→20:45)
[2020-12-05] MEDS: PANTOPRAZOLE 40 MG TAB PO SCH (08:45)
[2020-12-05] MEDS ORDERED: MIDAZOLAM 5 MG/5 ML INJ MDV IV ONE (09:15)
[2020-12-05] MEDS ORDERED: fentaNYL 100 MCG/2 ML INJ IV ONE (09:15)
--- NOTE | 2020-12-05 09:35 | Progress Note ---
Assessment and Plan Assessment and plan: 60-year-old male patient who was initially admitted with alcohol withdrawal symptoms, chronic pancreatitis, on CIWA protocol, patient also had urinary tract infection with E. coli Completed treatment, and patient is waiting for subacute rehab placement. Yesterday patient developed abdominal pain with mild distention with severe nausea. CT abdomen and pelvis with contrast was obtained Which showed multi focal fluid and gas collection around pararenal upper abdomen and splenic area. Patient was started on IV antibiotics cefepime, vancomycin and IR evaluated the patient s/p CT-guided placement of 12 [place] APD drain in the right retroperitoneal fluid collection 12/02/2020 Surgical cultures gram-negative rods, urine cultures Enterococcus, ID discontinued cefepime Flagyl And started Zosyn. --Hyperkalemia; potassium 5.7 Calcium gluconate 2 g IV x1 dose Closely monitor electrolytes -- procedure per IR[12/05/2020] CT-guided placement of abdominal drainage catheter for right perinephrotic calyceal rupture and intra-abdominal stranding of infected urine. By IR. Patient tolerated the procedure well CT abdomen and pelvis with contrast 12/04/2020; -Decreased right posterior pararenal space fluid collection with drainage catheter in place -Persistent left upper quadrant fluid collection -Persistent subcapsular fluid collection involving the spleen -Patchy parenchymal changes both lower lobes with bilateral pleural effusion -Patchy enhancement of right kidney worrisome for inflammatory process pyelonephritis -Persistent small posterior fluid collection right lateral abdomen Interventional radiologist, urologist, surgery, ID following the patient. --Multifocal fluid and gas collection[pararenal, upper abdomen, splenic area] Current Visit: No Status: Acute Interventional radiologist is following s/p CT-guided placement of 12 [place] APD drain in the right retroperitoneal fluid collection 12/02/2020 per IR Continue supportive care, follow fluid analysis and cultures Follow-up CT scan abdomen with contrast was obtained 12/04/2020, Findings as above Interventional radiologist, ID, urology, general surgery following the patient --Severe sepsis/intra-abdominal infection Current Visit: No Status: Acute. Recent UTI, pancreatitis Today , Surgical cultures today gram-negative rods urine cultures Enterococcus; ID changed the antibiotics to Zosyn . --Hypokalemia/hypophosphatemia/hypomagnesemia; Current Visit: No Status: Acute; Will managed with oral KCl, IV magnesium sulfate, IV K-Phos Closely monitor electrolytes --Anemia; Hb today 7.8 Current Visit: No Status: Acute. Stool for occult blood negative Received 1 unit of PRBC transfusion, --Hypophosphatemia/hypokalemia; Current Visit: No Status: Acute Monitor electrolytes --Alcohol withdrawal delirium Current Visit: No Status: Acute Symptoms significantly improved IV Ativan as needed --Acute kidney injury; Current Visit: Yes Status: Acute Vasomotor nephropathy, resolved --History of chronic ETOH abuse Current Visit: No Status: Chronic Education given to the patient advised to quit Also advised to seek alcohol rehabilitation And alcohol Anonymous support group When medically stable --Hypertension Current Visit: No Status: Chronic Moderate control continue current antihypertensives --Ongoing tobacco use Current Visit: No Status: Chronic Smoking cessation counseling Strongly advised nicotine patch. --Severe protein calorie malnutrition Current Visit: No Status: Acute Hypoalbuminemia , albumin 2.8 Nutrition supplements, nutrition consult and supportive care -- Metabolic acidosis Current Visit: Yes Status: Acute Plan to address problem: Secondary to uremia as well as chronic pancreatitis treat underlying etiology. --DVT prophylaxis; Current Visit: Yes Status: Acute SCDs,No pharmacological anticoagulation in view of possible hematoma on CT abdomen And anemia PT re evaluated the patient on 12/02/2020; Recommended subacute rehab We will closely monitor the patient and adjust the management as needed Plan of care reviewed with the patient and his nurse DC planning; subacute rehab when medically stable The high probability of a clinically significant, sudden or life threatening deterioration of the [multi] system(s) required my full and direct attention, intervention and personal management. The aggregate critical care time was [35] minutes. This time is in addition to time spent performing reported procedures but includes the following: [x] Data Review and interpretation [x] Patient assessment and monitoring of vital signs [x] Documentation [x] Medication orders and management Brief history and daily hospital course: 60-year-old male patient was admitted with alcohol withdrawal symptoms On [facility] protocol patient has E. coli UTI completed treatment with antibiotics COVID-19 test is negative, waiting for placement however on 12/01/2020 Patient developed sudden abdominal pain, CT scan showed multiple loculated collections, sepsis IR Dr. Dugan, urology disposition Home and ID Dr. Garcia was consulted, IR is planning CT-guided aspiration Try to contact daughter Huong Hua, unable to reach left a message and requested to call back 11/20/2020; patient feels slightly better, no significant withdrawal symptoms Patient is on CIWA protocol, stable to be transferred out of IMCU to medical floor 11/21/2020; patient has severe agitation tremulousness, patient is on CIWA protocol Closely monitor withdrawal symptoms, adjust the medications as needed in the morning equal in both upper Advance diet to regular as tolerated. I called patient's mother and also patient's daughter Ms. Huong Hua at [phone] 11/22/2020; Patient continues to be agitated confused mumbling, On CIWA protocol, restraint for safety. E. coli UTI on Zosyn Called again patient's daughter next of kin Ms. Huong Hua at [phone][number obtained from social work case manager Ms. 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 Parada's condition and treatment plan 11/23/2020 Patient continues to be agitated Resumed service 11/26/2020; Patient still has mild alcohol withdrawal symptoms Restraints for safety 11/27/2020; Patient is off CIWA protocol and restraints PT OT evaluated, PT recommending subacute rehab 11/28/2020; today patient has some mild shortness of breath and wheezing Tachycardia heart rate in 100 -110 , alert awake oriented x3 Possible fluid overload, give 1 dose of Lasix IV, checks chest x-ray 11/29/2020; patient is more alert and awake, no shortness of breath No alcohol withdrawal symptoms, pending subacute rehab placemen 11/30/2020; Anemia patient's hemoglobin dropped to 6.9, transfuse 1 unit PRBC Stool for occult blood, GI consult if needed 12/01/2020; stool guaiac negative Hb improved to 8.1, complains of some abdominal pain and discomfort Will check CT abdomen and pelvis Pending placementI IAdvised to quit alcohol intake CT abdomen and pelvis multifocal fluid collection IR/urology/ID were consulted, started antibiotics IR recommend CT-guided drainage 12/02/2020; CT-guided drainage pain, tried to contact and next of kin daughter Ms. 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 By IR. Patient tolerated the procedure well Continue postoperative care All the consultants and recommendations noted and appreciated History Interval history: The patient underwent CT-guided placement of abdominal drainage catheter for right perinephrotic calyceal rupture and intra-abdominal stranding of infected urine. By IR. Patient tolerated the procedure well I have seen and examined the patient at the bedside Patient's chart and medications reviewed Patient underwent abdominal drainage catheter placement today as mentioned above Hospitalist Physical - Constitutional Vitals: Temp Pulse Resp BP Pulse Ox 97.6 F 76 32 H 106/65 97 12/05/20 07:00 12/05/20 08:30 12/05/20 08:30 12/05/20 08:30 12/05/20 08:30 General appearance: Present: no acute distress, well-nourished - EENT Eyes: Present: PERRL, EOM intact - Neck Neck: Present: supple, normal ROM - Respiratory Respiratory effort: normal Respiratory: bilateral: diminished, negative: rales, rhonchi, wheezing - Cardiovascular Rhythm: regular Heart Sounds: Present: S1 & S2 - Extremities Extremities: no ischemia, No edema - Abdominal General gastrointestinal: soft, non-tender, non-distended, normal bowel sounds - Integumentary Integumentary: Present: clear, warm - Psychiatric Psychiatric: appropriate mood/affect, cooperative - Neurologic Neurologic: CNII-XII intact, moves all extremities HEART Score - HEART Score Troponin: Troponin T < 0.010 ng/mL (0.00-0.029) 11/19/20 22:51 Results - Labs CBC & Chem 7: 12/06/20 06:53 12/05/20 13:49 Labs: Laboratory Last Values WBC 22.1 K/mm3 (4.5-11.0) H 12/04/20 19:01 RBC 3.16 M/mm3 (3.65-5.03) L 12/04/20 19:01 Hgb 8.6 gm/dl (11.8-15.2) L 12/04/20 19:01 Hct 24.9 % (35.5-45.6) L 12/04/20 19:01 MCV 79 fl (84-94) L 12/04/20 19:01 MCH 27 pg (28-32) L 12/04/20 19:01 MCHC 35 % (32-34) H 12/04/20 19:01 RDW 18.9 % (13.2-15.2) H 12/04/20 19:01 Plt Count 575 K/mm3 (140-440) H 12/04/20 19:01 Lymph % (Auto) 10.1 % (13.4-35.0) L 11/25/20 04:14 [place] % (Auto) 6.5 % (0.0-7.3) 11/25/20 04:14 Eos % (Auto) 0.8 % (0.0-4.3) 11/25/20 04:14 Baso % (Auto) 0.1 % (0.0-1.8) 11/25/20 04:14 Lymph # (Auto) Master Fisher 12/02/20 07:01 [place] # (Auto) 1.0 K/mm3 (0.0-0.8) H 11/25/20 04:14 Eos # (Auto) 0.1 K/mm3 (0.0-0.4) 11/25/20 04:14 Baso # (Auto) 0.0 K/mm3 (0.0-0.1) 11/25/20 04:14 Add Manual Diff Complete 12/04/20 19:01 Total Counted 100 12/04/20 19:01 Seg Neutrophils % 82.5 % (40.0-70.0) H 11/25/20 04:14 Seg Neuts % (Manual) 82.0 % (40.0-70.0) H 12/04/20 19:01 Band Neutrophils % 12.0 % 12/03/20 04:27 Lymphocytes % (Manual) 9.0 % (13.4-35.0) L 12/04/20 19:01 Reactive Lymphs % (Man) 2.0 % 11/30/20 08:40 Monocytes % (Manual) 8.0 % (0.0-7.3) H 12/04/20 19:01 Eosinophils % (Manual) 1.0 % (0.0-4.3) 12/04/20 19:01 Metamyelocytes % 1.0 % 12/03/20 04:27 Myelocytes % 2.0 % 12/02/20 07:01 Nucleated RBC % Not Reportable 12/04/20 19:01 Seg Neutrophils # 12.3 K/mm3 (1.8-7.7) H 11/25/20 04:14 Seg Neutrophils # Man 18.1 K/mm3 (1.8-7.7) H 12/04/20 19:01 Band Neutrophils # 0.0 K/mm3 12/04/20 19:01 Lymphocytes # (Manual) 2.0 K/mm3 (1.2-5.4) 12/04/20 19:01 Abs React Lymphs (Man) 0.0 K/mm3 12/04/20 19:01 Monocytes # (Manual) 1.8 K/mm3 (0.0-0.8) H 12/04/20 19:01 Eosinophils # (Manual) 0.2 K/mm3 (0.0-0.4) 12/04/20 19:01 Basophils # (Manual) 0.0 K/mm3 (0.0-0.1) 12/04/20 19:01 Metamyelocytes # 0.0 K/mm3 12/04/20 19:01 Myelocytes # 0.0 K/mm3 12/04/20 19:01 Promyelocytes # 0.0 K/mm3 12/04/20 19:01 Blast Cells # 0.0 K/mm3 12/04/20 19:01 WBC Morphology Not Reportable 12/04/20 19:01 Hypersegmented Neuts Not Reportable 12/04/20 19:01 Hyposegmented Neuts Not Reportable 12/04/20 19:01 Hypogranular Neuts Not Reportable 12/04/20 19:01 Smudge Cells Not Reportable 12/04/20 19:01 Toxic Granulation Not Reportable 12/04/20 19:01 Toxic Vacuolation Not Reportable 12/04/20 19:01 Dohle Bodies Not Reportable 12/04/20 19:01 Pelger-Huet Anomaly Not Reportable 12/04/20 19:01 Aiden Rods Not Reportable 12/04/20 19:01 Platelet Estimate Not Reportable 12/04/20 19:01 Clumped Platelets Not Reportable 12/04/20 19:01 Plt Clumps, EDTA Not Reportable 12/04/20 19:01 Large Platelets Not Reportable 12/04/20 19:01 Giant Platelets Not Reportable 12/04/20 19:01 Platelet Satelliting Not Reportable 12/04/20 19:01 Plt Morphology Comment Not Reportable 12/04/20 19:01 RBC Morphology Not Reportable 12/04/20 19:01 Dimorphic RBCs Not Reportable 12/04/20 19:01 Polychromasia Few 12/04/20 19:01 Hypochromasia 1+ 12/04/20 19:01 Poikilocytosis Not Reportable 12/04/20 19:01 Anisocytosis 1+ 12/04/20 19:01 Microcytosis Not Reportable 12/04/20 19:01 Macrocytosis Not Reportable 12/04/20 19:01 Spherocytes Not Reportable 12/04/20 19:01 Pappenheimer Bodies Not Reportable 12/04/20 19:01 Sickle Cells Not Reportable 12/04/20 19:01 Target Cells Rare 12/04/20 19:01 Tear Drop Cells Not Reportable 12/04/20 19:01 Ovalocytes Not Reportable 12/04/20 19:01 Stomatocytes Few 12/04/20 19:01 Helmet Cells Not Reportable 12/04/20 19:01 Lux-Brice Bodies Not Reportable 12/04/20 19:01 Wendell Rings Not Reportable 12/04/20 19:01 Stevie Cells Not Reportable 12/04/20 19:01 Bite Cells Not Reportable 12/04/20 19:01 Crenated Cell Not Reportable 12/04/20 19:01 Elliptocytes Not Reportable 12/04/20 19:01 Acanthocytes (Spur) Not Reportable 12/04/20 19:01 Rouleaux Not Reportable 12/04/20 19:01 Hemoglobin C Crystals Not Reportable 12/04/20 19:01 Schistocytes Not Reportable 12/04/20 19:01 Malaria parasites Not Reportable 12/04/20 19:01 Florin Bodies Not Reportable 12/04/20 19:01 Hem Pathologist Commnt No 12/04/20 19:01 PT 15.8 Sec. (12.2-14.9) H 12/01/20 05:53 INR 1.21 (0.87-1.13) H 12/01/20 05:53 APTT 33.7 Sec. (24.2-36.6) 12/01/20 05:53 D-Dimer 1767.06 ng/mlDDU (0-234) H 11/19/20 16:44 ABG pH 7.454 (7.320-7.450) H 11/28/20 17:47 POC ABG pCO2 25.8 mmHg (32.0-48.0) L 11/28/20 17:47 POC ABG pO2 65.5 mmHg (83-108) L 11/28/20 17:47 POC ABG HCO3 17.7 11/28/20 17:47 ABG O2 Saturation 94.3 (0-100) 11/28/20 17:47 POC ABG Base Excess -5.5 11/28/20 17:47 ABG Hemoglobin 7.0 (12.0-17.5) L 11/28/20 17:47 ABG Oxyhemoglobin 92.2 (94-98) L 11/28/20 17:47 ABG Methemoglobin 0.3 (0.0-1.5) 11/28/20 17:47 ABG Sodium 143.6 mmol/L (136.0-145.0) 11/28/20 17:47 ABG Potassium 3.6 mmol/L (3.40-4.50) 11/28/20 17:47 ABG Chloride 117.0 mmol/L (98-107) H 11/28/20 17:47 ABG Glucose 104 mg/dL (65-95) H 11/28/20 17:47 Carboxyhemoglobin 1.9 (0.5-1.5) H 11/28/20 17:47 FiO2 % 21.0 11/28/20 17:47 Sodium 137 mmol/L (137-145) 12/04/20 03:52 Potassium 3.2 mmol/L (3.6-5.0) L 12/04/20 03:52 Chloride 105.2 mmol/L (98-107) 12/04/20 03:52 Carbon Dioxide 26 mmol/L (22-30) D 12/04/20 03:52 Anion Gap 9 mmol/L 12/04/20 03:52 BUN 8 mg/dL (9-20) L 12/04/20 03:52 Creatinine 0.6 mg/dL (0.8-1.3) L 12/04/20 03:52 Estimated GFR > 60 ml/min 12/04/20 03:52 BUN/Creatinine Ratio 13 % 12/04/20 03:52 Glucose 91 mg/dL (75-100) 12/04/20 03:52 POC Glucose 110 mg/dL (70-105) H 12/03/20 11:58 Lactic Acid 3.10 mmol/L (0.7-2.0) H* 11/19/20 18:28 Calcium 7.6 mg/dL (8.4-10.2) L 12/04/20 03:52 Phosphorus 2.40 mg/dL (2.5-4.5) L 12/04/20 03:52 Magnesium 1.60 mg/dL (1.7-2.3) L 12/04/20 03:52 Total Bilirubin 0.40 mg/dL (0.1-1.2) 12/02/20 07:01 Direct Bilirubin 0.2 mg/dL (0-0.2) 11/19/20 16:44 Indirect Bilirubin 0.3 mg/dL 11/19/20 16:44 AST 13 units/L (5-40) 12/02/20 07:01 ALT 7 units/L (7-56) 12/02/20 07:01 Alkaline Phosphatase 122 units/L (35-129) 12/02/20 07:01 Total Creatine Kinase 26 units/L (55-170) L 11/19/20 16:44 CK-MB (CK-2) < 1.0 ng/mL (0.0-4.0) 11/19/20 16:44 CK-MB (CK-2) Rel Index 3.8 (0-4) 11/19/20 16:44 Troponin T < 0.010 ng/mL (0.00-0.029) 11/19/20 22:51 NT-Pro-B Natriuret Pep 454.0 pg/mL (0-900) 11/19/20 16:44 Total Protein 5.5 g/dL (6.3-8.2) L 12/02/20 07:01 Albumin 1.8 g/dL (3.9-5) L 12/02/20 07:01 Albumin/Globulin Ratio 0.5 % 12/02/20 07:01 Amylase 52 units/L (27-131) 12/04/20 03:52 Lipase 16 units/L (13-60) 12/02/20 07:01 Arterial Blood Glucose 104 mg/dL (65-95) H 11/28/20 17:47 Arterial Blood Ionized Calcium 4.5 mg/dL (4.6-5.3) L 11/28/20 17:47 Urine Color Yellow (Yellow) 12/01/20 18:45 Urine Turbidity Clear (Clear) 12/01/20 18:45 Urine pH 6.0 (5.0-7.0) 12/01/20 18:45 Ur Specific [place] 1.036 (1.003-1.030) H 12/01/20 18:45 Urine Protein <15 mg/dl mg/dL (Negative) 12/01/20 18:45 Urine Glucose (UA) Neg mg/dL (Negative) 12/01/20 18:45 Urine Ketones Neg mg/dL (Negative) 12/01/20 18:45 Urine Blood Neg (Negative) 12/01/20 18:45 Urine Nitrite Neg (Negative) 12/01/20 18:45 Urine Bilirubin Neg (Negative) 12/01/20 18:45 Urine Urobilinogen < 2.0 mg/dL (<2.0) 12/01/20 18:45 Ur Leukocyte Esterase Tr (Negative) 12/01/20 18:45 Urine WBC (Auto) 3.0 /HPF (0.0-6.0) 12/01/20 18:45 Urine RBC (Auto) 1.0 /HPF (0.0-6.0) 12/01/20 18:45 U Epithel Cells (Auto) < 1.0 /HPF (0-13.0) 12/01/20 18:45 Urine Bacteria (Auto) 1+ /HPF (Negative) 11/19/20 19:18 Hyaline Casts 1 /LPF 11/19/20 19:18 Urine Mucus Few /HPF 12/01/20 18:45 Nasal Screen MRSA (PCR) Negative (Negative) 11/20/20 Unknown Urine Opiates Screen Negative 11/19/20 19:18 Urine Methadone Screen Negative 11/19/20 19:18 Ur Barbiturates Screen Negative 11/19/20 19:18 Ur Phencyclidine Scrn Negative 11/19/20 19:18 Ur Amphetamines Screen Negative 11/19/20 19:18 U Benzodiazepines Scrn Negative 11/19/20 19:18 Urine Cocaine Screen Negative 11/19/20 19:18 U Marijuana (THC) Screen Negative 11/19/20 19:18 Drugs of Abuse Note Disclamer 11/19/20 19:18 Coronavirus (PCR) Negative (Negative) 11/27/20 08:45 Blood Type O POSITIVE 11/30/20 15:00 Antibody Screen Negative 11/30/20 15:00 Crossmatch See Detail 11/30/20 15:00 Microbiology: Microbiology 12/01/20 18:46 Peripheral/Venous Blood Culture - Preliminary NO GROWTH AFTER 72 HOURS 12/01/20 18:46 Peripheral/Venous Blood Culture - Preliminary NO GROWTH AFTER 72 HOURS Viramontes/IV: Voiding Method Condom Catheter Active Medications - Current Medications Current Medications: Generic Name Dose Route Start Last Admin Trade Name Freq PRN Reason Stop Dose Admin Acetaminophen 650 mg 11/20/20 14:00 12/05/20 02:36 Acetaminophen 325 Mg Tab PO 650 mg Q6H PRN Administration Pain, Mild (1-3) Albuterol 2.5 mg 11/30/20 12:00 Albuterol 2.5 Mg/3 Ml Nebu IH Q4HRT PRN Shortness Of Breath Bisacodyl 5 mg 12/04/20 18:45 Bisacodyl 5 Mg Tab PO QDAY PRN Constipation Folic Acid 1 mg 11/20/20 10:00 12/04/20 09:30 Folic Acid 1 Mg Tab PO 1 mg QDAY JANNETH Administration Hydralazine HCl 10 mg 11/19/20 18:18 Hydralazine 20 Mg/1 Ml Inj IV Q4HR PRN Hypertension Sodium Chloride 1,000 mls @ 100 mls/hr 12/01/20 18:15 12/05/20 06:58 Nacl 0.9% 1000 Ml IV 100 mls/hr DIRECT JANNETH Administration Piperacillin Sod/Tazobactam Sod 4.5 gm in 100 mls @ 200 mls/hr 12/03/20 15:00 12/05/20 02:37 Zosyn/Ns 4.5gm/100ml IV 200 mls/hr Q6H JANNETH Administration Protocol Lorazepam 2 mg 11/27/20 12:30 12/02/20 23:05 Lorazepam 2 Mg/Ml Vial IV 2 mg Q4H PRN Administration Agitation Losartan Potassium 100 mg 11/20/20 10:00 12/04/20 09:31 Losartan 50 Mg Tab PO Not Given QDAY JANNETH Metoprolol Tartrate 12.5 mg 11/28/20 22:00 12/04/20 22:00 Metoprolol Tartrate 25 Mg Tab PO Not Given BID JANNETH Morphine Sulfate 2 mg 11/20/20 10:30 12/05/20 04:24 Morphine 2 Mg/1 Ml Inj IV 2 mg Q6H PRN Administration Pain, Moderate (4-6) Ondansetron HCl 4 mg 11/19/20 18:11 11/30/20 18:37 Ondansetron 4 Mg/2 Ml Inj IV 4 mg Q8H PRN Administration Nausea And Vomiting Pantoprazole Sodium 40 mg 12/04/20 07:30 12/05/20 08:45 Pantoprazole 40 Mg Tab PO 40 mg QDAC JANNETH Administration Sodium Bicarbonate 1,300 mg 11/29/20 20:00 12/05/20 08:39 Sodium Bicarbonate 650 Mg Tab PO 1,300 mg TID JANNETH Administration Sodium Chloride 10 ml 11/19/20 22:00 12/05/20 02:41 Sodium Chloride 0.9% 10 Ml Flush Syringe IV 10 ml BID JANNETH Administration Sodium Chloride 10 ml 11/19/20 19:11 11/30/20 18:37 Sodium Chloride 0.9% 10 Ml Flush Syringe IV 10 ml PRN PRN Administration LINE FLUSH Nutrition/Malnutrition Assess - Dietary Evaluation Nutrition/Malnutrition Findings: Nutrition Notes Start: 11/20/20 12:00 Freq: Status: Active Protocol: Document 12/03/20 11:30 (Rec: 12/03/20 11:32 [id number]) Nutrition Notes Initial or Follow up Reassessment Current Diagnosis Sepsis,Hypertension, Hyperlipidemia Other Pertinent Diagnosis Acute alcoholic pancreatitis, EtOH withdrawal delirium, ARF, GERD Current Diet Regular Labs/Tests Reviewed Pertinent Medications Reviewed Height 5 ft 10 in Weight 89 kg [place] Body Weight (kg) 75.45 BMI 28.1 Weight Status Overweight Subjective/Other Information FU for intakes. Pt reports eating 25% of meals. He stated he has not gotten the ONS yet . Pt states he is okay with having meat in the hospital. Burn Absent Trauma Absent Current % PO Poor (25-49%) Minimum of two criteria No Energy Intake (severe) < or equal to 50% Estimated Energy Requirement > or equal to 5 days #2 Nutrition Diagnosis Inadequate oral intake Diagnosis Progress(for reassessment Continues documentation) Is patient on ventilator? No Is Patient Ambulatory and/or Out of Bed No REE-([facility]-confined to bed) 2051. Calculation Used for Recommendations [facility] Additional Notes Pro needs 1-1.2g/k-98g/ day Fluid needs 1ml/kcal Nutrition Intervention Change Diet Order: Continue Add Supplement/Snack (indicate name/kcal Ensure Enlive BID /protein ) Provides kCal: 700 Provides Protein (gm) 40 Goal #1 Meet 75% of energy and protein needs Anticipated Discharge Needs: CHO-controlled, low fat diet Follow-Up By: 12/05/20 Additional Comments FU for intakes and ONS tolerance
[2020-12-05] MEDS ORDERED: SODIUM CHLORIDE 0.9% 500 ML 500 ML ONE (09:39)
--- NOTE | 2020-12-05 10:33 | Operative Report ---
Operative Report Operative Report: Exam: CT-guided placement of abdominal drainage catheter Clinical indication: Patient with a history of right pyelonephritis with calyceal rupture and intra-abdominal spreading of infected urine Date: 12/05/2020 Procedure: Following an explanation of the risks, benefits and alternatives; written informed consent was obtained. The patient was brought to the CT suite and placed in supine position on the gantry. Initial public speaker images of the upper abdomen were performed and an appropriate access site was chosen in the patient's left upper quadrant. The patient's upper abdomen was prepped and draped in the usual sterile fashion. 1% lidocaine was used for anesthesia. Using intermittent CT guidance, a 15 cm 18-gauge trocar needle was advanced into the anterior aspect of fluid collection which appears to drape around the spleen and extend into the paracolic gutters. CT positioning confirmed appropriate positioning of the needle. There was prompt return of purulent urine. A 0.035 guidewire was then advanced and easily extended into the more dependent portion of the fluid collection in the paracolic gutters. The needle was removed. Following serial dilation over the guidewire, an 8 Turkmen drainage catheter was advanced over the guidewire and positioned with the pigtail in the paracolic g utter. A total of 180 mL of purulent urine was aspirated. A sample was sent for laboratory analysis. The catheter was then securely fastened to the skin surface using 2-0 Ethilon suture and a stay fix device. A sterile dressing was applied. The catheter was then placed to FLORA drainage. The patient tolerated the procedure well. There were no immediate postprocedure complications. Versed was used for anxiolysis. Sedation was not utilized secondary to patient's blood pressure. Impression: CT-guided placement of 8 Turkmen drainage catheter in left upper quadrant fluid collection with 180 mL of purulent urine aspirated. A sample was sent for laboratory analysis.
--- NOTE | 2020-12-05 10:34 | Event Note ---
Date: 12/05/20 Patient with persistent intra-abdominal fluid collections and ruptured calyces in his right kidney with associated likely pyelonephritis. Patient will need placement of ureteral stent to allow the kidney to decompress as he continues to see the abdomen with an infected purulent fluid. Patient now has 2 drainage catheters in an attempt to remove as much of this infected fluid as possible.
[2020-12-05] MEDS ORDERED: SODIUM CHLORIDE 0.9% 500 ML 500 ML IV SCH (11:00)
--- NOTE | 2020-12-05 11:18 | Progress Note ---
Assessment and Plan Cultures: 11/27/2020 COVID-19 PCR: Negative 11/19/2020 blood culture: No growth 11/19/2020 urine culture: E. coli 12/01/2020 blood culture: No growth 12/01/2020 urine culture: Enterococcus 12/02/2020 IR drainage culture: GNR A/P: 60-year-old male with gastroesophageal reflux disease, hypertension, hyperlipidemia, alcohol abuse admitted to the hospital on 11/19/2020 with abdo farnaz pain from suspected pancreatitis and alcohol withdrawal: Sepsis: Source likely large multifocal fluid and gas collections in the right pararenal space. #Large multifocal fluid and gas collections in the right pararenal space: etiology is suspected renal calyceal rupture. Urology and IR following. Underwent IR drainage 12/02/2020 with about 500 cc of pinkish material drained. Additional CT-guided placement of 8 Setswana drainage catheter in left upper quadrant fluid collection with 180 mL of purulent urine aspirated on 12/05/2020. #Subcapsular splenic collection: new, etiology unclear, likely related to above. #Acute alcohol withdrawal, chronic alcohol abuse #JOHN: Resolved #Prior UTI: s/p abx. Recs: Continue Zosyn, D3 f/u IR drainage cultures Abdulkadir Helton MD, FACP [facility] O: [phone] F: [phone] Subjective Date of service: 12/05/20 Principal diagnosis: EtOH dependence Interval history: Sitting upright in bed. Got LUQ drain placed. No complaints. Objective - Exam Narrative Exam: Physical Exam: Constitutional: awake, alert Head, Ears, Nose: Normocephalic, atraumatic. External ears, nose normal Eyes: Conjunctivae/corneas clear. No icterus. No ptosis. Neck: Supple, no meningeal signs Cardiovascular: S1, S2 normal. Respiratory: Good air entry, clear to auscultation bilaterally GI: R sided drain +. bowel sounds +. Left sided drain + Musculoskeletal: No pedal edema, no cyanosis. Skin: No rash or abscess Hem/Lymphatic: No palpable cervical or supraclavicular nodes. No lymphangitis Psych: calm, no agitation Neurological: Awake, alert - Constitutional Vitals: Vital Signs Temp Pulse Resp BP Pulse Ox 97.6 F 82 30 H 106/60 98 06/24/21 07:00 12/05/20 10:55 12/05/20 10:55 12/05/20 10:55 12/05/20 10:55 Temperature -Last 24 Hours Temperature 97.6 F Temperature 97.6 F Temperature 97.6 F Temperature 97.2 F - Labs CBC & Chem 7: 12/04/20 19:01 12/04/20 03:52 Labs: Abnormal lab results 12/04/20 Range/Units 19:01 WBC 22.1 H (4.5-11.0) K/mm3 RBC 3.16 L (3.65-5.03) M/mm3 Hgb 8.6 L (11.8-15.2) gm/dl Hct 24.9 L (35.5-45.6) % MCV 79 L (84-94) fl MCH 27 L (28-32) pg MCHC 35 H (32-34) % RDW 18.9 H (13.2-15.2) % Plt Count 575 H (140-440) K/mm3 Seg Neuts % (Manual) 82.0 H (40.0-70.0) % Lymphocytes % (Manual) 9.0 L (13.4-35.0) % Monocytes % (Manual) 8.0 H (0.0-7.3) % Seg Neutrophils # Man 18.1 H (1.8-7.7) K/mm3 Monocytes # (Manual) 1.8 H (0.0-0.8) K/mm3
[2020-12-05] MEDS: FOLIC ACID 1 MG TAB PO SCH (11:24)
[2020-12-05 14:42] LABS: Hematocrit 27.2 % (35.5-45.6); Hemoglobin 9.4 gm/dl (11.8-15.2); Mean Corpuscular HGB Conc 35 % (32-34); Mean Corpuscular Volume 79 fl (84-94); Platelet Count 467 K/mm3 (140-440); Red Blood Count 3.45 M/mm3 (3.65-5.03); Red Cell Distribution Width 19.3 % (13.2-15.2)
[2020-12-05 15:09] LABS: Alanine Aminotransferase 8 units/L (7-56); Albumin 1.6 g/dL (3.9-5); Blood Urea Nitrogen 5 mg/dL (9-20); Calcium 7.8 mg/dL (8.4-10.2); Hemolysis Index 104
[2020-12-05 15:30] LABS: BUN/Creatinine Ratio 10
[2020-12-05] MEDS: METOPROLOL TARTRATE 25 MG TAB PO SCH ×2 (15:46→21:55)
[2020-12-05] MEDS: LOSARTAN 50 MG TAB PO SCH (15:46)
[2020-12-05 17:06] LABS: Anisocytosis 1+; Band Neutrophils # (Manual) 1.6 K/mm3; Total Cells Counted 100
[2020-12-05 17:07] LABS: Hypochromasia 1+; Platelet Clumps Few; Platelet Estimate Appears Decreased; Target Cells Few
[2020-12-05] MEDS ORDERED: CALCIUM GLUCONATE 2,000 MG in SODIUM CHLORIDE 0.9% 100 ML IV ONE (18:00)
--- NOTE | 2020-12-05 20:47 | Progress Note ---
Assessment and Plan - Patient Problems (1) Intra-abdominal abscess Current Visit: Yes Status: Acute Plan to address problem: 1) Continue IV antibiotics per C&S results 2) Daily CBC Subjective Date of service: 12/05/20 Patient Reports: Positive: no new complaints, feels better, pain is less Objective Vital Signs - 12hr 12/05/20 12/05/20 12/05/20 09:00 10:03 10:10 Temperature Pulse Rate 78 Pulse Rate [ Intra-Procedure ] Pulse Rate [ 80 Post-Procedure] Pulse Rate [Pre 77 -Procedure] Respiratory 30 H Rate Respiratory Rate [Intra- Procedure] Respiratory 31 H Rate [Post- Procedure] Respiratory 16 Rate [Pre- Procedure] Blood Pressure 109/62 Blood Pressure [Intra- Procedure] Blood Pressure 98/52 [Post-Procedure ] Blood Pressure 105/65 [Pre-Procedure] O2 Sat by Pulse Oximetry O2 Sat by Pulse Oximetry [ Intra-Procedure ] O2 Sat by Pulse 100 Oximetry [Post -Procedure] O2 Sat by Pulse 98 Oximetry [Pre- Procedure] 12/05/20 12/05/20 12/05/20 10:14 10:17 10:22 Temperature Pulse Rate Pulse Rate [ 83 83 81 Intra-Procedure ] Pulse Rate [ Post-Procedure] Pulse Rate [Pre -Procedure] Respiratory Rate Respiratory 27 H 22 24 Rate [Intra- Procedure] Respiratory Rate [Post- Procedure] Respiratory Rate [Pre- Procedure] Blood Pressure Blood Pressure 90/54 96/61 93/56 [Intra- Procedure] Blood Pressure [Post-Procedure ] Blood Pressure [Pre-Procedure] O2 Sat by Pulse Oximetry O2 Sat by Pulse 100 99 100 Oximetry [ Intra-Procedure ] O2 Sat by Pulse Oximetry [Post -Procedure] O2 Sat by Pulse Oximetry [Pre- Procedure] 12/05/20 12/05/20 12/05/20 10:27 10:36 10:55 Temperature Pulse Rate Pulse Rate [ Intra-Procedure ] Pulse Rate [ 81 82 82 Post-Procedure] Pulse Rate [Pre -Procedure] Respiratory Rate Respiratory Rate [Intra- Procedure] Respiratory 34 H 29 H 30 H Rate [Post- Procedure] Respiratory Rate [Pre- Procedure] Blood Pressure Blood Pressure [Intra- Procedure] Blood Pressure 98/64 108/62 106/60 [Post-Procedure ] Blood Pressure [Pre-Procedure] O2 Sat by Pulse Oximetry O2 Sat by Pulse Oximetry [ Intra-Procedure ] O2 Sat by Pulse 98 96 98 Oximetry [Post -Procedure] O2 Sat by Pulse Oximetry [Pre- Procedure] 12/05/20 12/05/20 12/05/20 10:56 11:00 12:00 Temperature Pulse Rate 84 83 81 Pulse Rate [ Intra-Procedure ] Pulse Rate [ Post-Procedure] Pulse Rate [Pre -Procedure] Respiratory 28 H 30 H 26 H Rate Respiratory Rate [Intra- Procedure] Respiratory Rate [Post- Procedure] Respiratory Rate [Pre- Procedure] Blood Pressure 93/65 100/67 114/75 Blood Pressure [Intra- Procedure] Blood Pressure [Post-Procedure ] Blood Pressure [Pre-Procedure] O2 Sat by Pulse 98 94 99 Oximetry O2 Sat by Pulse Oximetry [ Intra-Procedure ] O2 Sat by Pulse Oximetry [Post -Procedure] O2 Sat by Pulse Oximetry [Pre- Procedure] 12/05/20 12/05/20 12/05/20 13:00 14:00 15:00 Temperature Pulse Rate 78 96 H 77 Pulse Rate [ Intra-Procedure ] Pulse Rate [ Post-Procedure] Pulse Rate [Pre -Procedure] Respiratory 25 H 41 H 25 H Rate Respiratory Rate [Intra- Procedure] Respiratory Rate [Post- Procedure] Respiratory Rate [Pre- Procedure] Blood Pressure 104/66 104/67 101/68 Blood Pressure [Intra- Procedure] Blood Pressure [Post-Procedure ] Blood Pressure [Pre-Procedure] O2 Sat by Pulse 99 96 96 Oximetry O2 Sat by Pulse Oximetry [ Intra-Procedure ] O2 Sat by Pulse Oximetry [Post -Procedure] O2 Sat by Pulse Oximetry [Pre- Procedure] 12/05/20 12/05/20 12/05/20 16:00 16:11 17:00 Temperature 97.3 F L Pulse Rate 77 87 Pulse Rate [ Intra-Procedure ] Pulse Rate [ Post-Procedure] Pulse Rate [Pre -Procedure] Respiratory 25 H 31 H Rate Respiratory Rate [Intra- Procedure] Respiratory Rate [Post- Procedure] Respiratory Rate [Pre- Procedure] Blood Pressure 108/63 107/69 Blood Pressure [Intra- Procedure] Blood Pressure [Post-Procedure ] Blood Pressure [Pre-Procedure] O2 Sat by Pulse 98 97 Oximetry O2 Sat by Pulse Oximetry [ Intra-Procedure ] O2 Sat by Pulse Oximetry [Post -Procedure] O2 Sat by Pulse Oximetry [Pre- Procedure] 12/05/20 12/05/20 18:00 19:46 Temperature 98.7 F Pulse Rate 85 Pulse Rate [ Intra-Procedure ] Pulse Rate [ Post-Procedure] Pulse Rate [Pre -Procedure] Respiratory 36 H Rate Respiratory Rate [Intra- Procedure] Respiratory Rate [Post- Procedure] Respiratory Rate [Pre- Procedure] Blood Pressure 101/63 Blood Pressure [Intra- Procedure] Blood Pressure [Post-Procedure ] Blood Pressure [Pre-Procedure] O2 Sat by Pulse 95 Oximetry O2 Sat by Pulse Oximetry [ Intra-Procedure ] O2 Sat by Pulse Oximetry [Post -Procedure] O2 Sat by Pulse Oximetry [Pre- Procedure] - Abdomen soft, bowel sounds hypoactive (NT, ND) - Labs 12/05/20 13:49 12/05/20 13:49 Diabetes panel 12/05/20 Range/Units 13:49 Sodium 136 L (137-145) mmol/L Potassium 5.7 H D (3.6-5.0) mmol/L Chloride 108.5 H (98-107) mmol/L Carbon Dioxide 21 L (22-30) mmol/L BUN 5 L (9-20) mg/dL Creatinine 0.5 L (0.8-1.3) mg/dL Glucose 75 (75-100) mg/dL Calcium 7.8 L (8.4-10.2) mg/dL AST 26 (5-40) units/L ALT 8 (7-56) units/L Alkaline Phosphatase 144 H (35-129) units/L Total Protein 6.1 L (6.3-8.2) g/dL Albumin 1.6 L (3.9-5) g/dL Calcium panel 12/05/20 Range/Units 13:49 Calcium 7.8 L (8.4-10.2) mg/dL Phosphorus 2.80 (2.5-4.5) mg/dL Albumin 1.6 L (3.9-5) g/dL Pituitary panel 12/05/20 Range/Units 13:49 Sodium 136 L (137-145) mmol/L Potassium 5.7 H D (3.6-5.0) mmol/L Chloride 108.5 H (98-107) mmol/L Carbon Dioxide 21 L (22-30) mmol/L BUN 5 L (9-20) mg/dL Creatinine 0.5 L (0.8-1.3) mg/dL Glucose 75 (75-100) mg/dL Calcium 7.8 L (8.4-10.2) mg/dL Adrenal panel 12/05/20 Range/Units 13:49 Sodium 136 L (137-145) mmol/L Potassium 5.7 H D (3.6-5.0) mmol/L Chloride 108.5 H (98-107) mmol/L Carbon Dioxide 21 L (22-30) mmol/L BUN 5 L (9-20) mg/dL Creatinine 0.5 L (0.8-1.3) mg/dL Glucose 75 (75-100) mg/dL Calcium 7.8 L (8.4-10.2) mg/dL Total Bilirubin 0.40 (0.1-1.2) mg/dL AST 26 (5-40) units/L ALT 8 (7-56) units/L Alkaline Phosphatase 144 H (35-129) units/L Total Protein 6.1 L (6.3-8.2) g/dL Albumin 1.6 L (3.9-5) g/dL
[2020-12-06] MEDS: PIPERACIL/TAZOBACTA 4.5/NS 100 4.5 GM/100 ML VIAL IV SCH ×4 (02:10→21:22)
[2020-12-06 07:35] LABS: Hematocrit 25.7 % (35.5-45.6); Hemoglobin 8.4 gm/dl (11.8-15.2); Mean Corpuscular HGB Conc 33 % (32-34); Mean Corpuscular Volume 78 fl (84-94); Platelet Count 604 K/mm3 (140-440); Red Blood Count 3.28 M/mm3 (3.65-5.03); Red Cell Distribution Width 18.7 % (13.2-15.2)
[2020-12-06 08:57] LABS: Total Cells Counted 100
[2020-12-06 08:58] LABS: Anisocytosis 1+; Hypochromasia 1+; Large Platelets Few; Platelet Estimate Consistent w Auto
[2020-12-06] MEDS: oxyCODONE /ACETAMINOPHEN 5-325MG TAB PO PRN ×2 (09:27→15:18)
[2020-12-06] MEDS: PANTOPRAZOLE 40 MG TAB PO SCH (09:27)
[2020-12-06] MEDS: FOLIC ACID 1 MG TAB PO SCH (09:27)
[2020-12-06] MEDS: SODIUM BICARBONATE 650 MG TAB PO SCH ×3 (09:27→20:11)
[2020-12-06] MEDS: MORPHINE 2 MG/1 ML INJ IV PRN (10:36)
[2020-12-06] MEDS: SODIUM CHLORIDE 0.9% 1000 ML 1,000 ML IV SCH ×2 (10:38→21:47)
--- NOTE | 2020-12-06 11:24 | Progress Note ---
Assessment and Plan Assessment and plan: --Multifocal fluid and gas collection[pararenal, upper abdomen, splenic area] on CT abdomen and pelvis on 12/01/2020 Interventional radiologist , urologist, surgeon and ID evaluated the patient On patient underwent IR procedure 12/02/2020 s/p CT-guided placement of 12 [place] APD drain in the right retroperitoneal fluid collection per IR Continue supportive care, follow fluid analysis and cultures follow-up CT abdomen/persistent fluid collection 12/04/2020 follow-up CT scan abdomen with contrast Interventional radiologist, ID, urology, general surgery following the patient 12/05/2020 CT-guided placement of 8 [place] drainage catheter in left upper quadrant fluid collection with 180 mL of purulent urine aspirated. A sample was sent for laboratory analysis. Patient currently is on Zosyn as recommended by ID Procedures: On 12/01/2020, patient developed abdominal pain with nausea. 12/01/2020 CT abdomen and pelvis with contrast revealed[Multifocal fluid and gas collection[pararenal, upper abdomen, splenic area] 12/02/2020 s/p IR procedure successful CT-guided placement of a 12 [place] APD drain in a right retroperitoneal fluid collection. 12/04/2020 follow-up CT scan abdomen with contrast was obtained new collection of fluid left upper quadrant 12/05/2020 s/p IR procedure CT-guided placement of 8 [place] drainage catheter in left upper quadrant fluid collection with 180 mL of purulent urine aspirated. Asample was sent for laboratory analysis., Currently patient has [address] abdomen and pelvis with contrast 12/04/2020; -Decreased right posterior pararenal space fluid collection with drainage catheter in place -Persistent left upper quadrant fluid collection -Persistent subcapsular fluid collection involving the spleen -Patchy parenchymal changes both lower lobes with bilateral pleural effusion -Patchy enhancement of right kidney worrisome for inflammatory process pyelonephritis -Persistent small posterior fluid collection right lateral abdomen Interventional radiologist, urologist, surgery, ID following the patient. --Hyperkalemia; Corrected with calcium gluconate 2 g IV x1 dose Monitor electrolytes --Severe sepsis/intra-abdominal infection Current Visit: No Status: Acute. Recent UTI, pancreatitis Today , Surgical cultures today gram-negative rods urine cultures Enterococcus; ID changed the antibiotics to Zosyn . --Hypokalemia/hypophosphatemia/hypomagnesemia; Current Visit: No Status: Acute; Will managed with oral KCl, IV magnesium sulfate, IV K-Phos Closely monitor electrolytes --Anemia; Current Visit: No Status: Acute. Stool for occult blood negative Received 1 unit of PRBC transfusion, --Hypophosphatemia/hypokalemia; Current Visit: No Status: Acute Monitor electrolytes --Alcohol withdrawal delirium Current Visit: No Status: Acute Symptoms significantly improved IV Ativan as needed --Acute kidney injury; Current Visit: Yes Status: Acute Vasomotor nephropathy, resolved --History of chronic ETOH abuse Current Visit: No Status: Chronic Education given to the patient advised to quit Also advised to seek alcohol rehabilitation And alcohol Anonymous support group When medically stable --Hypertension Current Visit: No Status: Chronic Moderate control continue current antihypertensives --Ongoing tobacco use Current Visit: No Status: Chronic Smoking cessation counseling Strongly advised nicotine patch. --Severe protein calorie malnutrition Current Visit: No Status: Acute Hypoalbuminemia , albumin 2.8 Nutrition supplements, nutrition consult and supportive care -- Metabolic acidosis Current Visit: Yes Status: Acute Plan to address problem: Secondary to uremia as well as chronic pancreatitis treat underlying etiology. --DVT prophylaxis; Current Visit: Yes Status: Acute SCDs,No pharmacological anticoagulation in view of possible hematoma on CT abdomen And anemia PT re evaluated the patient on 12/02/2020; Recommended subacute rehab We will closely monitor the patient and adjust the management as needed Plan of care reviewed with the patient and his nurse DC planning; subacute rehab when medically stable The high probability of a clinically significant, sudden or life threatening deterioration of the [multi] system(s) required my full and direct attention, intervention and personal management. The aggregate critical care time was [35] minutes. This time is in addition to time spent performing reported procedures but includes the following: [x] Data Review and interpretation [x] Patient assessment and monitoring of vital signs [x] Documentation [x] Medication orders and management Brief history and daily hospital course: 60-year-old male patient was admitted with alcohol withdrawal symptoms On CIWA protocol patient has E. coli UTI completed treatment with antibiotics COVID-19 test is negative, waiting for placement however on 12/01/2020 Patient developed sudden abdominal pain, CT scan showed multiple loculated collections, sepsis IR Dr. Dugan, urology disposition Home and ID Dr. Garcia was consulted, IR is planning CT-guided aspiration Try to contact daughter Huong Hua, unable to reach left a message and requested to call back 11/20/2020; patient feels slightly better, no significant withdrawal symptoms Patient is on CIWA protocol, stable to be transferred out of IMCU to medical floor 11/21/2020; patient has severe agitation tremulousness, patient is on CIWA protocol Closely monitor withdrawal symptoms, adjust the medications as needed in the morning equal in both upper Advance diet to regular as tolerated. I called patient's mother and also patient's daughter Ms. Huong Hua at [phone] 11/22/2020; Patient continues to be agitated confused mumbling, On CIWA protocol, restraint for safety. E. coli UTI on Zosyn Called again patient's daughter next of kin Ms. Huong Hua at [phone][number obtained from protective services case worker Ms. Vo] Did not continuous pickling line pickler helper the phone I left a voicemail again today to discuss about Mr. Parada's condition and treatment plan 11/23/2020 Patient continues to be agitated Resumed service 11/26/2020; Patient still has mild alcohol withdrawal symptoms Restraints for safety 11/27/2020; Patient is off CIWA protocol and restraints PT OT evaluated, PT recommending subacute rehab 11/28/2020; today patient has some mild shortness of breath and wheezing Tachycardia heart rate in 100 -110 , alert awake oriented x3 Possible fluid overload, give 1 dose of Lasix IV, checks chest x-ray 11/29/2020; patient is more alert and awake, no shortness of breath No alcohol withdrawal symptoms, pending subacute rehab placemen 11/30/2020; Anemia patient's hemoglobin dropped to 6.9, transfuse 1 unit PRBC Stool for occult blood, GI consult if needed 12/01/2020; stool guaiac negative Hb improved to 8.1, complains of some abdominal pain and discomfort Will check CT abdomen and pelvis Pending placementI IAdvised to quit alcohol intake CT abdomen and pelvis multifocal fluid collection IR/urology/ID were consulted, started antibiotics IR recommend CT-guided drainage 12/02/2020; CT-guided drainage pain, tried to contact and next of kin daughter Ms. Huong Hua at [phone][number obtained from protective services case worker Ms. Vo] Did not continuous pickling line pickler helper the phone, left message to call back 12/03/2020; patient feels slightly better CT-guided drain placement yesterday per IR ID changed antibiotics to Zosyn Reevaluation by PT, recommend subacute rehab DC planning per case management We will discharge to subacute rehab when medically stable 12/04/2020; follow-up CT abdomen and pelvis 12/04/2020 Findings as above, persistent fluid collections in multiple areas 12/05/2020; CT-guided placement of abdominal drainage catheter for right perinephrotic calyceal rupture and intra-abdominal stranding of infected urine. By IR. Patient tolerated the procedure well Continue postoperative care All the consultants and recommendations noted and appreciated 12/06/2020; patient feels slightly better, has 2 drains into the pocket intra- abdominal fluid collection Draining well, IR, surgery, ID following History Interval history: Seen and examined the patient at the bedside Patient's chart and medications reviewed Patient feels slightly better Patient has intra-abdominal multiple fluid collection IR evaluated and placed 2 drains one placed on on 12/02, and the second placed on 12/05 Patient complains of generalized weakness Vital signs noted Hospitalist Physical - Constitutional Vitals: Temp Pulse Resp BP Pulse Ox 98.4 F 65 25 H 111/63 97 12/06/20 03:22 12/06/20 06:00 12/06/20 06:00 12/06/20 06:00 12/06/20 09:18 General appearance: Present: no acute distress, well-nourished, other (Looks tired) - EENT Eyes: Present: PERRL, EOM intact - Neck Neck: Present: supple, normal ROM - Respiratory Respiratory effort: normal Respiratory: bilateral: diminished, negative: rales, rhonchi, wheezing - Cardiovascular Rhythm: regular Heart Sounds: Present: S1 & S2 - Extremities Extremities: no ischemia, No edema - Abdominal General gastrointestinal: soft, non-tender, non-distended, normal bowel sounds, other ([address] draining well) - Integumentary Integumentary: Present: clear, warm - Psychiatric Psychiatric: appropriate mood/affect, cooperative - Neurologic Neurologic: moves all extremities HEART Score - HEART Score Troponin: Troponin T < 0.010 ng/mL (0.00-0.029) 11/19/20 22:51 Results - Labs CBC & Chem 7: 12/06/20 06:53 12/05/20 13:49 Labs: Laboratory Last Values WBC 18.0 K/mm3 (4.5-11.0) H 12/06/20 06:53 RBC 3.28 M/mm3 (3.65-5.03) L 12/06/20 06:53 Hgb 8.4 gm/dl (11.8-15.2) L 12/06/20 06:53 Hct 25.7 % (35.5-45.6) L 12/06/20 06:53 MCV 78 fl (84-94) L 12/06/20 06:53 MCH 26 pg (28-32) L 12/06/20 06:53 MCHC 33 % (32-34) 12/06/20 06:53 RDW 18.7 % (13.2-15.2) H 12/06/20 06:53 Plt Count 604 K/mm3 (140-440) H 12/06/20 06:53 Lymph % (Auto) 10.1 % (13.4-35.0) L 11/25/20 04:14 [place] % (Auto) 6.5 % (0.0-7.3) 11/25/20 04:14 Eos % (Auto) 0.8 % (0.0-4.3) 11/25/20 04:14 Baso % (Auto) 0.1 % (0.0-1.8) 11/25/20 04:14 Lymph # (Auto) Shaker Operator 12/02/20 07:01 [place] # (Auto) 1.0 K/mm3 (0.0-0.8) H 11/25/20 04:14 Eos # (Auto) 0.1 K/mm3 (0.0-0.4) 11/25/20 04:14 Baso # (Auto) 0.0 K/mm3 (0.0-0.1) 11/25/20 04:14 Add Manual Diff Complete 12/06/20 06:53 Total Counted 100 12/06/20 06:53 Seg Neutrophils % 82.5 % (40.0-70.0) H 11/25/20 04:14 Seg Neuts % (Manual) 85.0 % (40.0-70.0) H 12/06/20 06:53 Band Neutrophils % 7.0 % 12/05/20 13:49 Lymphocytes % (Manual) 4.0 % (13.4-35.0) L 12/06/20 06:53 Reactive Lymphs % (Man) 2.0 % 11/30/20 08:40 Monocytes % (Manual) 9.0 % (0.0-7.3) H 12/06/20 06:53 Eosinophils % (Manual) 1.0 % (0.0-4.3) 12/04/20 19:01 Metamyelocytes % 2.0 % 12/06/20 06:53 Myelocytes % 2.0 % 12/02/20 07:01 Nucleated RBC % Not Reportable 12/06/20 06:53 Seg Neutrophils # 12.3 K/mm3 (1.8-7.7) H 11/25/20 04:14 Seg Neutrophils # Man 15.3 K/mm3 (1.8-7.7) H 12/06/20 06:53 Band Neutrophils # 0.0 K/mm3 12/06/20 06:53 Lymphocytes # (Manual) 0.7 K/mm3 (1.2-5.4) L 12/06/20 06:53 Abs React Lymphs (Man) 0.0 K/mm3 12/06/20 06:53 Monocytes # (Manual) 1.6 K/mm3 (0.0-0.8) H 12/06/20 06:53 Eosinophils # (Manual) 0.0 K/mm3 (0.0-0.4) 12/06/20 06:53 Basophils # (Manual) 0.0 K/mm3 (0.0-0.1) 12/06/20 06:53 Metamyelocytes # 0.4 K/mm3 12/06/20 06:53 Myelocytes # 0.0 K/mm3 12/06/20 06:53 Promyelocytes # 0.0 K/mm3 12/06/20 06:53 Blast Cells # 0.0 K/mm3 12/06/20 06:53 WBC Morphology Not Reportable 12/06/20 06:53 Hypersegmented Neuts Not Reportable 12/06/20 06:53 Hyposegmented Neuts Not Reportable 12/06/20 06:53 Hypogranular Neuts Not Reportable 12/06/20 06:53 Smudge Cells Not Reportable 12/06/20 06:53 Toxic Granulation Not Reportable 12/06/20 06:53 Toxic Vacuolation Not Reportable 12/06/20 06:53 Dohle Bodies Not Reportable 12/06/20 06:53 Pelger-Huet Anomaly Not Reportable 12/06/20 06:53 Aiden Rods Not Reportable 12/06/20 06:53 Platelet Estimate Consistent w auto 12/06/20 06:53 Clumped Platelets Not Reportable 12/06/20 06:53 Plt Clumps, EDTA Not Reportable 12/06/20 06:53 Large Platelets Few 12/06/20 06:53 Giant Platelets Not Reportable 12/06/20 06:53 Platelet Satelliting Not Reportable 12/06/20 06:53 Plt Morphology Comment Not Reportable 12/06/20 06:53 RBC Morphology Not Reportable 12/06/20 06:53 Dimorphic RBCs Not Reportable 12/06/20 06:53 Polychromasia Not Reportable 12/06/20 06:53 Hypochromasia 1+ 12/06/20 06:53 Poikilocytosis Not Reportable 12/06/20 06:53 Anisocytosis 1+ 12/06/20 06:53 Microcytosis Not Reportable 12/06/20 06:53 Macrocytosis Not Reportable 12/06/20 06:53 Spherocytes Not Reportable 12/06/20 06:53 Pappenheimer Bodies Not Reportable 12/06/20 06:53 Sickle Cells Not Reportable 12/06/20 06:53 Target Cells Not Reportable 12/06/20 06:53 Tear Drop Cells Not Reportable 12/06/20 06:53 Ovalocytes Not Reportable 12/06/20 06:53 Stomatocytes Few 12/04/20 19:01 Helmet Cells Not Reportable 12/06/20 06:53 Lux-[place] Bodies Not Reportable 12/06/20 06:53 Bally Rings Not Reportable 12/06/20 06:53 [place] Cells Not Reportable 12/06/20 06:53 Bite Cells Not Reportable 12/06/20 06:53 Crenated Cell Not Reportable 12/06/20 06:53 Elliptocytes Not Reportable 12/06/20 06:53 Acanthocytes (Spur) Not Reportable 12/06/20 06:53 Rouleaux Not Reportable 12/06/20 06:53 Hemoglobin C Crystals Not Reportable 12/06/20 06:53 Schistocytes Not Reportable 12/06/20 06:53 Malaria parasites Not Reportable 12/06/20 06:53 Florin Bodies Not Reportable 12/06/20 06:53 Hem Pathologist Commnt No 12/06/20 06:53 PT 15.8 Sec. (12.2-14.9) H 12/01/20 05:53 INR 1.21 (0.87-1.13) H 12/01/20 05:53 APTT 33.7 Sec. (24.2-36.6) 12/01/20 05:53 D-Dimer 1767.06 ng/mlDDU (0-234) H 11/19/20 16:44 ABG pH 7.454 (7.320-7.450) H 11/28/20 17:47 POC ABG pCO2 25.8 mmHg (32.0-48.0) L 11/28/20 17:47 POC ABG pO2 65.5 mmHg (83-108) L 11/28/20 17:47 POC ABG HCO3 17.7 11/28/20 17:47 ABG O2 Saturation 94.3 (0-100) 11/28/20 17:47 POC ABG Base Excess -5.5 11/28/20 17:47 ABG Hemoglobin 7.0 (12.0-17.5) L 11/28/20 17:47 ABG Oxyhemoglobin 92.2 (94-98) L 11/28/20 17:47 ABG Methemoglobin 0.3 (0.0-1.5) 11/28/20 17:47 ABG Sodium 143.6 mmol/L (136.0-145.0) 11/28/20 17:47 ABG Potassium 3.6 mmol/L (3.40-4.50) 11/28/20 17:47 ABG Chloride 117.0 mmol/L (98-107) H 11/28/20 17:47 ABG Glucose 104 mg/dL (65-95) H 11/28/20 17:47 Carboxyhemoglobin 1.9 (0.5-1.5) H 11/28/20 17:47 FiO2 % 21.0 11/28/20 17:47 Sodium 136 mmol/L (137-145) L 12/05/20 13:49 Potassium 5.7 mmol/L (3.6-5.0) H D 12/05/20 13:49 Chloride 108.5 mmol/L (98-107) H 12/05/20 13:49 Carbon Dioxide 21 mmol/L (22-30) L 12/05/20 13:49 Anion Gap 12 mmol/L 12/05/20 13:49 BUN 5 mg/dL (9-20) L 12/05/20 13:49 Creatinine 0.5 mg/dL (0.8-1.3) L 12/05/20 13:49 Estimated GFR > 60 ml/min 12/05/20 13:49 BUN/Creatinine Ratio 10 % 12/05/20 13:49 Glucose 75 mg/dL (75-100) 12/05/20 13:49 POC Glucose 110 mg/dL (70-105) H 12/03/20 11:58 Lactic Acid 3.10 mmol/L (0.7-2.0) H* 11/19/20 18:28 Calcium 7.8 mg/dL (8.4-10.2) L 12/05/20 13:49 Phosphorus 2.80 mg/dL (2.5-4.5) 12/05/20 13:49 Magnesium 2.20 mg/dL (1.7-2.3) 12/05/20 13:49 Total Bilirubin 0.40 mg/dL (0.1-1.2) 12/05/20 13:49 Direct Bilirubin 0.2 mg/dL (0-0.2) 11/19/20 16:44 Indirect Bilirubin 0.3 mg/dL 11/19/20 16:44 AST 26 units/L (5-40) 12/05/20 13:49 ALT 8 units/L (7-56) 12/05/20 13:49 Alkaline Phosphatase 144 units/L (35-129) H 12/05/20 13:49 Total Creatine Kinase 26 units/L (55-170) L 11/19/20 16:44 CK-MB (CK-2) < 1.0 ng/mL (0.0-4.0) 11/19/20 16:44 CK-MB (CK-2) Rel Index 3.8 (0-4) 11/19/20 16:44 Troponin T < 0.010 ng/mL (0.00-0.029) 11/19/20 22:51 NT-Pro-B Natriuret Pep 454.0 pg/mL (0-900) 11/19/20 16:44 Total Protein 6.1 g/dL (6.3-8.2) L 12/05/20 13:49 Albumin 1.6 g/dL (3.9-5) L 12/05/20 13:49 Albumin/Globulin Ratio 0.4 % 12/05/20 13:49 Amylase 52 units/L (27-131) 12/04/20 03:52 Lipase 16 units/L (13-60) 12/02/20 07:01 Arterial Blood Glucose 104 mg/dL (65-95) H 11/28/20 17:47 Arterial Blood Ionized Calcium 4.5 mg/dL (4.6-5.3) L 11/28/20 17:47 Urine Color Yellow (Yellow) 12/01/20 18:45 Urine Turbidity Clear (Clear) 12/01/20 18:45 Urine pH 6.0 (5.0-7.0) 12/01/20 18:45 Ur Specific [place] 1.036 (1.003-1.030) H 12/01/20 18:45 Urine Protein <15 mg/dl mg/dL (Negative) 12/01/20 18:45 Urine Glucose (UA) Neg mg/dL (Negative) 12/01/20 18:45 Urine Ketones Neg mg/dL (Negative) 12/01/20 18:45 Urine Blood Neg (Negative) 12/01/20 18:45 Urine Nitrite Neg (Negative) 12/01/20 18:45 Urine Bilirubin Neg (Negative) 12/01/20 18:45 Urine Urobilinogen < 2.0 mg/dL (<2.0) 12/01/20 18:45 Ur Leukocyte Esterase Tr (Negative) 12/01/20 18:45 Urine WBC (Auto) 3.0 /HPF (0.0-6.0) 12/01/20 18:45 Urine RBC (Auto) 1.0 /HPF (0.0-6.0) 12/01/20 18:45 U Epithel Cells (Auto) < 1.0 /HPF (0-13.0) 12/01/20 18:45 Urine Bacteria (Auto) 1+ /HPF (Negative) 11/19/20 19:18 Hyaline Casts 1 /LPF 11/19/20 19:18 Urine Mucus Few /HPF 12/01/20 18:45 Nasal Screen MRSA (PCR) Negative (Negative) 11/20/20 Unknown Urine Opiates Screen Negative 11/19/20 19:18 Urine Methadone Screen Negative 11/19/20 19:18 Ur Barbiturates Screen Negative 11/19/20 19:18 Ur Phencyclidine Scrn Negative 11/19/20 19:18 Ur Amphetamines Screen Negative 11/19/20 19:18 U Benzodiazepines Scrn Negative 11/19/20 19:18 Urine Cocaine Screen Negative 11/19/20 19:18 U Marijuana (THC) Screen Negative 11/19/20 19:18 Drugs of Abuse Note Disclamer 11/19/20 19:18 Coronavirus (PCR) Negative (Negative) 11/27/20 08:45 Blood Type O POSITIVE 11/30/20 15:00 Antibody Screen Negative 11/30/20 15:00 Crossmatch See Detail 11/30/20 15:00 Microbiology: Microbiology 12/01/20 18:46 Peripheral/Venous Blood Culture - Preliminary NO GROWTH AFTER 4 DAYS 12/01/20 18:46 Peripheral/Venous Blood Culture - Preliminary NO GROWTH AFTER 4 DAYS 12/05/20 Unknown Abdomen Surgical Culture - Preliminary 12/02/20 Unknown Abdomen Surgical Culture - Final Escherichia Coli Viramontes/IV: Voiding Method Condom Catheter Active Medications - Current Medications Current Medications: Generic Name Dose Route Start Last Admin Trade Name Freq PRN Reason Stop Dose Admin Acetaminophen 650 mg 11/20/20 14:00 12/05/20 20:45 Acetaminophen 325 Mg Tab PO 650 mg Q6H PRN Administration Pain, Mild (1-3) Albuterol 2.5 mg 11/30/20 12:00 Albuterol 2.5 Mg/3 Ml Nebu IH Q4HRT PRN Shortness Of Breath Bisacodyl 5 mg 12/04/20 18:45 Bisacodyl 5 Mg Tab PO QDAY PRN Constipation Folic Acid 1 mg 11/20/20 10:00 12/06/20 09:27 Folic Acid 1 Mg Tab PO 1 mg QDAY JANNETH Administration Hydralazine HCl 10 mg 11/19/20 18:18 Hydralazine 20 Mg/1 Ml Inj IV Q4HR PRN Hypertension Sodium Chloride 1,000 mls @ 100 mls/hr 12/01/20 18:15 12/06/20 10:38 Nacl 0.9% 1000 Ml IV 100 mls/hr DIRECT JANNETH Administration Piperacillin Sod/Tazobactam Sod 4.5 gm in 100 mls @ 200 mls/hr 12/03/20 15:00 12/06/20 09:28 Zosyn/Ns 4.5gm/100ml IV 200 mls/hr Q6H JANNETH Administration Protocol Sodium Chloride 500 mls @ 50 mls/hr 12/05/20 11:00 12/05/20 10:35 Nacl 0.9% 500 Ml IV 50 mls/hr DIRECT JANNETH Administration Lorazepam 2 mg 11/27/20 12:30 12/02/20 23:05 Lorazepam 2 Mg/Ml Vial IV 2 mg Q4H PRN Administration Agitation Losartan Potassium 100 mg 11/20/20 10:00 12/05/20 15:46 Losartan 50 Mg Tab PO Not Given QDAY JANNETH Metoprolol Tartrate 12.5 mg 11/28/20 22:00 12/05/20 21:55 Metoprolol Tartrate 25 Mg Tab PO 12.5 mg BID JANNETH Administration Morphine Sulfate 2 mg 12/06/20 09:30 12/06/20 10:36 Morphine 2 Mg/1 Ml Inj IV 2 mg Q8H PRN Administration Pain, Moderate (4-6) Ondansetron HCl 4 mg 11/19/20 18:11 11/30/20 18:37 Ondansetron 4 Mg/2 Ml Inj IV 4 mg Q8H PRN Administration Nausea And Vomiting Oxycodone/Acetaminophen 1 tab 12/06/20 10:00 12/06/20 09:27 Oxycodone /Acetaminophen 5-325mg Tab PO 1 tab Q6H PRN Administration Pain, Moderate (4-6) Pantoprazole Sodium 40 mg 12/04/20 07:30 12/06/20 09:27 Pantoprazole 40 Mg Tab PO 40 mg QDAC JANNETH Administration Sodium Bicarbonate 1,300 mg 11/29/20 20:00 12/06/20 09:27 Sodium Bicarbonate 650 Mg Tab PO 1,300 mg TID JANNETH Administration Sodium Chloride 10 ml 11/19/20 22:00 12/06/20 09:35 Sodium Chloride 0.9% 10 Ml Flush Syringe IV 10 ml BID JANNETH Administration Sodium Chloride 10 ml 11/19/20 19:11 11/30/20 18:37 Sodium Chloride 0.9% 10 Ml Flush Syringe IV 10 ml PRN PRN Administration LINE FLUSH Nutrition/Malnutrition Assess - Dietary Evaluation Nutrition/Malnutrition Findings: Nutrition Notes Start: 11/20/20 12:0 0 Freq: Status: Active Protocol: Document 12/05/20 14:09 (Rec: 12/05/20 14:10 [email or web address]) Nutrition Notes Initial or Follow up Reassessment Current Diagnosis Sepsis,Hypertension, Hyperlipidemia Other Pertinent Diagnosis Acute alcoholic pancreatitis, EtOH withdrawal delirium, ARF, GERD Current Diet Cardiac Subjective/Other Information FU for intakes. Pt NPO for procedure this AM, diet now advanced. Pt not in room at time of visit. Nutrition Intervention Follow-Up By: 12/06/20 Additional Comments FU for intakes and ONS tolerance
--- NOTE | 2020-12-06 12:11 | Progress Note ---
Assessment and Plan Cultures: 11/27/2020 COVID-19 PCR: Negative 11/19/2020 blood culture: No growth 11/19/2020 urine culture: E. coli 12/01/2020 blood culture: No growth 12/01/2020 urine culture: Enterococcus 12/02/2020 IR drainage culture: E.coli 12/05/2020 LUQ drainage cultures: In process A/P: 60-year-old male with gastroesophageal reflux disease, hypertension, hyperlipidemia, alcohol abuse admitted to the hospital on 11/19/2020 with abdominal pain from suspected pancreatitis and alcohol withdrawal: Sepsis: Source: large multifocal fluid and gas collections in the right pararenal space. #Large multifocal fluid and gas collections in the right pararenal space: etiology is suspected R renal calyceal rupture causing urinary leak. Urology and IR following. Underwent IR drainage 12/02/2020 with about 500 cc of pinkish material drained. Additional CT-guided placement of 8 [place] drainage catheter in left upper quadrant fluid collection with 180 mL of purulent urine aspirated on 12/05/2020. #Subcapsular splenic collection: new, etiology unclear, likely related to above. #Acute alcohol withdrawal, chronic alcohol abuse #JOHN: Resolved #Prior UTI: s/p abx. Recs: Continue Zosyn, D4 f/u IR drainage cultures f/u urology plan Dr. Garzon covering the weekend. Please call with questions. Abdulkadir Helton MD, FACP [facility] ([facility] O: [phone] F: [phone] Subjective Date of service: 12/06/20 Principal diagnosis: EtOH dependence Interval history: No fever, denies any complaints. Drains in place. Eating, no diarrhea, no nausea, vomiting. Objective - Exam Narrative Exam: Physical Exam: Constitutional: awake, alert Head, Ears, Nose: Normocephalic, atraumatic. External ears, nose normal Eyes: Conjunctivae/corneas clear. No icterus. No ptosis. Neck: Supple, no meningeal signs Cardiovascular: S1, S2 normal. Respiratory: Good air entry, clear to auscultation bilaterally GI: R sided drain +. bowel sounds +. Left sided drain +, both drains with purulent output Musculoskeletal: No pedal edema, no cyanosis. Skin: No rash or abscess Hem/Lymphatic: No palpable cervical or supraclavicular nodes. No lymphangitis Psych: calm, no agitation Neurological: Awake, alert - Constitutional Vitals: Vital Signs Temp Pulse Resp BP Pulse Ox 98.4 F 65 25 H 111/63 97 12/06/20 03:22 12/06/20 06:00 12/06/20 06:00 12/06/20 06:00 12/06/20 09:18 Temperature -Last 24 Hours Temperature 98.4 F Temperature 97.8 F Temperature 98.7 F Temperature 97.3 F - Labs CBC & Chem 7: 12/06/20 06:53 12/05/20 13:49 Labs: Abnormal lab results 12/05/20 12/05/20 12/06/20 Range/Units 13:49 13:49 06:53 WBC 23.0 H 18.0 H (4.5-11.0) K/mm3 RBC 3.45 L 3.28 L (3.65-5.03) M/mm3 Hgb 9.4 L 8.4 L (11.8-15.2) gm/dl Hct 27.2 L 25.7 L (35.5-45.6) % MCV 79 L 78 L (84-94) fl MCH 27 L 26 L (28-32) pg MCHC 35 H (32-34) % RDW 19.3 H 18.7 H (13.2-15.2) % Plt Count 467 H 604 H (140-440) K/mm3 Seg Neuts % (Manual) 78.0 H 85.0 H (40.0-70.0) % Lymphocytes % (Manual) 8.0 L 4.0 L (13.4-35.0) % Monocytes % (Manual) 9.0 H (0.0-7.3) % Nucleated RBC % 1.0 H (0.0-0.9) % Seg Neutrophils # Man 17.9 H 15.3 H (1.8-7.7) K/mm3 Lymphocytes # (Manual) 0.7 L (1.2-5.4) K/mm3 Monocytes # (Manual) 1.6 H 1.6 H (0.0-0.8) K/mm3 Sodium 136 L (137-145) mmol/L Potassium 5.7 H D (3.6-5.0) mmol/L Chloride 108.5 H (98-107) mmol/L Carbon Dioxide 21 L (22-30) mmol/L BUN 5 L (9-20) mg/dL Creatinine 0.5 L (0.8-1.3) mg/dL Calcium 7.8 L (8.4-10.2) mg/dL Alkaline Phosphatase 144 H (35-129) units/L Total Protein 6.1 L (6.3-8.2) g/dL Albumin 1.6 L (3.9-5) g/dL
--- NOTE | 2020-12-06 12:59 | Progress Note ---
Assessment and Plan - Patient Problems (1) Intra-abdominal abscess Current Visit: Yes Status: Acute Plan to address problem: 1) Improving 2) Continue drainage and IV antibiotics. Subjective Date of service: 12/06/20 Patient Reports: Positive: no new complaints, feels better, pain is less Objective Vital Signs - 12hr 12/06/20 12/06/20 12/06/20 01:00 02:00 03:00 Temperature Pulse Rate 67 64 72 Pulse Rate [ From Monitor] Respiratory 28 H 24 33 H Rate Blood Pressure 97/62 102/54 109/60 O2 Sat by Pulse 94 95 91 Oximetry 12/06/20 12/06/20 12/06/20 03:22 04:00 05:00 Temperature 98.4 F Pulse Rate 71 72 Pulse Rate [ 71 From Monitor] Respiratory 33 H 31 H Rate Blood Pressure 111/74 109/68 O2 Sat by Pulse 93 95 Oximetry 12/06/20 12/06/20 06:00 09:18 Temperature Pulse Rate 65 Pulse Rate [ From Monitor] Respiratory 25 H Rate Blood Pressure 111/63 O2 Sat by Pulse 96 97 Oximetry - Abdomen soft, bowel sounds normal (NT, ND) - Labs 12/06/20 06:53 12/05/20 13:49 Diabetes panel 12/05/20 Range/Units 13:49 Sodium 136 L (137-145) mmol/L Potassium 5.7 H D (3.6-5.0) mmol/L Chloride 108.5 H (98-107) mmol/L Carbon Dioxide 21 L (22-30) mmol/L BUN 5 L (9-20) mg/dL Creatinine 0.5 L (0.8-1.3) mg/dL Glucose 75 (75-100) mg/dL Calcium 7.8 L (8.4-10.2) mg/dL AST 26 (5-40) units/L ALT 8 (7-56) units/L Alkaline Phosphatase 144 H (35-129) units/L Total Protein 6.1 L (6.3-8.2) g/dL Albumin 1.6 L (3.9-5) g/dL Calcium panel 12/05/20 Range/Units 13:49 Calcium 7.8 L (8.4-10.2) mg/dL Phosphorus 2.80 (2.5-4.5) mg/dL Albumin 1.6 L (3.9-5) g/dL Pituitary panel 12/05/20 Range/Units 13:49 Sodium 136 L (137-145) mmol/L Potassium 5.7 H D (3.6-5.0) mmol/L Chloride 108.5 H (98-107) mmol/L Carbon Dioxide 21 L (22-30) mmol/L BUN 5 L (9-20) mg/dL Creatinine 0.5 L (0.8-1.3) mg/dL Glucose 75 (75-100) mg/dL Calcium 7.8 L (8.4-10.2) mg/dL Adrenal panel 12/05/20 Range/Units 13:49 Sodium 136 L (137-145) mmol/L Potassium 5.7 H D (3.6-5.0) mmol/L Chloride 108.5 H (98-107) mmol/L Carbon Dioxide 21 L (22-30) mmol/L BUN 5 L (9-20) mg/dL Creatinine 0.5 L (0.8-1.3) mg/dL Glucose 75 (75-100) mg/dL Calcium 7.8 L (8.4-10.2) mg/dL Total Bilirubin 0.40 (0.1-1.2) mg/dL AST 26 (5-40) units/L ALT 8 (7-56) units/L Alkaline Phosphatase 144 H (35-129) units/L Total Protein 6.1 L (6.3-8.2) g/dL Albumin 1.6 L (3.9-5) g/dL
[2020-12-06] MEDS: LOSARTAN 50 MG TAB PO SCH (15:12)
[2020-12-06] MEDS: METOPROLOL TARTRATE 25 MG TAB PO SCH ×2 (15:12→21:24)
[2020-12-07] MEDS: oxyCODONE /ACETAMINOPHEN 5-325MG TAB PO PRN ×3 (01:13→22:48)
[2020-12-07] MEDS: PIPERACIL/TAZOBACTA 4.5/NS 100 4.5 GM/100 ML VIAL IV SCH ×4 (02:35→20:12)
[2020-12-07 06:41] LABS: Hematocrit 25.8 % (35.5-45.6); Hemoglobin 8.5 gm/dl (11.8-15.2); Mean Corpuscular HGB Conc 33 % (32-34); Mean Corpuscular Volume 79 fl (84-94); Platelet Count 667 K/mm3 (140-440); Red Blood Count 3.26 M/mm3 (3.65-5.03); Red Cell Distribution Width 19.8 % (13.2-15.2)
[2020-12-07 07:14] LABS: Albumin 1.8 g/dL (3.9-5); Blood Urea Nitrogen 3 mg/dL (9-20); Calcium 7.7 mg/dL (8.4-10.2); Hemolysis Index 3
[2020-12-07 07:15] LABS: Alanine Aminotransferase < 5 units/L (7-56); BUN/Creatinine Ratio 6
[2020-12-07] MEDS: SODIUM BICARBONATE 650 MG TAB PO SCH ×3 (08:30→20:12)
[2020-12-07] MEDS: PANTOPRAZOLE 40 MG TAB PO SCH (08:30)
[2020-12-07] MEDS: SODIUM CHLORIDE 0.9% 1000 ML 1,000 ML IV SCH (09:40)
[2020-12-07] MEDS: LOSARTAN 50 MG TAB PO SCH (09:40)
[2020-12-07] MEDS: METOPROLOL TARTRATE 25 MG TAB PO SCH ×2 (09:41→22:47)
[2020-12-07] MEDS: FOLIC ACID 1 MG TAB PO SCH (09:41)
--- NOTE | 2020-12-07 11:55 | Progress Note ---
Assessment and Plan - Patient Problems (1) Intra-abdominal abscess Current Visit: Yes Status: Acute Plan to address problem: 1) Antibiotics per C&S results 2) CBC in the am Subjective Date of service: 12/07/20 Patient Reports: Positive: no new complaints, pain is less, tolerating a regular diet, bowel movement Objective Vital Signs - 12hr 12/06/20 12/07/20 12/07/20 23:57 00:00 01:00 Temperature 98.5 F Pulse Rate 76 78 Pulse Rate [ 76 From Monitor] Respiratory 33 H 37 H Rate Blood Pressure 115/67 122/70 O2 Sat by Pulse 92 99 Oximetry 12/07/20 12/07/20 12/07/20 01:13 02:00 03:00 Temperature Pulse Rate 77 74 Pulse Rate [ From Monitor] Respiratory 29 H 36 H 18 Rate Blood Pressure 111/72 115/69 O2 Sat by Pulse 94 95 Oximetry 12/07/20 12/07/20 12/07/20 04:00 05:00 06:00 Temperature 97.9 F Pulse Rate 78 77 76 Pulse Rate [ 77 From Monitor] Respiratory 33 H 33 H 34 H Rate Blood Pressure 122/76 125/71 122/71 O2 Sat by Pulse 95 92 96 Oximetry 12/07/20 12/07/20 12/07/20 07:45 09:40 09:41 Temperature 98.5 F Pulse Rate 76 76 Pulse Rate [ From Monitor] Respiratory Rate Blood Pressure 116/70 116/70 O2 Sat by Pulse Oximetry - Abdomen soft, bowel sounds normal (NT, ND) - Labs 12/07/20 05:49 12/07/20 05:49 Diabetes panel 12/07/20 Range/Units 05:49 Sodium 141 (137-145) mmol/L Potassium 3.6 D (3.6-5.0) mmol/L Chloride 106.8 (98-107) mmol/L Carbon Dioxide 25 (22-30) mmol/L BUN 3 L (9-20) mg/dL Creatinine 0.5 L (0.8-1.3) mg/dL Glucose 89 (75-100) mg/dL Calcium 7.7 L (8.4-10.2) mg/dL AST 11 (5-40) units/L ALT < 5 L (7-56) units/L Alkaline Phosphatase 115 (35-129) units/L Total Protein 5.2 L (6.3-8.2) g/dL Albumin 1.8 L (3.9-5) g/dL Calcium panel 12/07/20 Range/Units 05:49 Calcium 7.7 L (8.4-10.2) mg/dL Phosphorus 2.60 (2.5-4.5) mg/dL Albumin 1.8 L (3.9-5) g/dL Pituitary panel 12/07/20 Range/Units 05:49 Sodium 141 (137-145) mmol/L Potassium 3.6 D (3.6-5.0) mmol/L Chloride 106.8 (98-107) mmol/L Carbon Dioxide 25 (22-30) mmol/L BUN 3 L (9-20) mg/dL Creatinine 0.5 L (0.8-1.3) mg/dL Glucose 89 (75-100) mg/dL Calcium 7.7 L (8.4-10.2) mg/dL Adrenal panel 12/07/20 Range/Units 05:49 Sodium 141 (137-145) mmol/L Potassium 3.6 D (3.6-5.0) mmol/L Chloride 106.8 (98-107) mmol/L Carbon Dioxide 25 (22-30) mmol/L BUN 3 L (9-20) mg/dL Creatinine 0.5 L (0.8-1.3) mg/dL Glucose 89 (75-100) mg/dL Calcium 7.7 L (8.4-10.2) mg/dL Total Bilirubin 0.30 (0.1-1.2) mg/dL AST 11 (5-40) units/L ALT < 5 L (7-56) units/L Alkaline Phosphatase 115 (35-129) units/L Total Protein 5.2 L (6.3-8.2) g/dL Albumin 1.8 L (3.9-5) g/dL
[2020-12-07 12:03] LABS: Total Cells Counted 100
[2020-12-07 12:04] LABS: Platelet Estimate Consistent w Auto; Target Cells Few
--- NOTE | 2020-12-07 17:22 | Progress Note ---
Assessment and Plan Cultures: 11/27/2020 COVID-19 PCR: Negative 11/19/2020 blood culture: No growth 11/19/2020 urine culture: E. coli 12/01/2020 blood culture: No growth 12/01/2020 urine culture: Enterococcus 12/02/2020 IR drainage culture: E.coli 12/05/2020 LUQ drainage cultures: In process A/P: 60-year-old male with gastroesophageal reflux disease, hypertension, hyperlipidemia, alcohol abuse admitted to the hospital on 11/19/2020 with abdominal pain from suspected pancreatitis and alcohol withdrawal: Sepsis: Source: large multifocal fluid and gas collections in the right par arenal space. #Large multifocal fluid and gas collections in the right pararenal space: etiology is suspected R renal calyceal rupture causing urinary leak. Urology and IR following. Underwent IR drainage 12/02/2020 with about 500 cc of pinkish material drained. Additional CT-guided placement of 8 [place] drainage catheter in left upper quadrant fluid collection with 180 mL of purulent urine aspirated on 12/05/2020. #Subcapsular splenic collection: new, etiology unclear, likely related to above. #Acute alcohol withdrawal, chronic alcohol abuse #JOHN: Resolved #Prior UTI: s/p abx. Recs: Continue Zosyn, D5 f/u IR drainage cultures f/u urology plan Jud Garzon MD [facility] O: [phone] F: [phone] Subjective Date of service: 12/07/20 Principal diagnosis: EtOH dependence Interval history: Afebrile, white count improved now 11.9. Objective - Exam Narrative Exam: Physical Exam: Constitutional: awake, alert Head, Ears, Nose: Normocephalic, atraumatic. External ears, nose normal Eyes: Conjunctivae/corneas clear. No icterus. Neck: Supple, no meningeal signs Cardiovascular: S1, S2 normal. Respiratory: Good air entry, clear to auscultation bilaterally GI: Bilateral drains present, both drains with purulent output Musculoskeletal: No pedal edema, no cyanosis. Skin: No rash or abscess Hem/Lymphatic: No palpable cervical or supraclavicular nodes. Psych: calm, no agitation Neurological: Awake, alert - Constitutional Vitals: Vital Signs Temp Pulse Resp BP Pulse Ox 98.6 F 83 35 H 118/79 100 12/07/20 16:00 12/07/20 15:00 12/07/20 15:00 12/07/20 15:00 12/07/20 15:00 Temperature -Last 24 Hours Temperature 98.6 F Temperature 98.9 F Temperature 98.5 F Temperature 97.9 F Temperature 98.5 F Temperature 99.1 F - Labs CBC & Chem 7: 12/07/20 05:49 12/07/20 05:49 Labs: Abnormal lab results 12/07/20 12/07/20 Range/Units 05:49 05:49 WBC 11.9 H (4.5-11.0) K/mm3 RBC 3.26 L (3.65-5.03) M/mm3 Hgb 8.5 L (11.8-15.2) gm/dl Hct 25.8 L (35.5-45.6) % MCV 79 L (84-94) fl MCH 26 L (28-32) pg RDW 19.8 H (13.2-15.2) % Plt Count 667 H (140-440) K/mm3 Seg Neuts % (Manual) 87.0 H (40.0-70.0) % Lymphocytes % (Manual) 3.0 L (13.4-35.0) % Seg Neutrophils # Man 10.4 H (1.8-7.7) K/mm3 Lymphocytes # (Manual) 0.4 L (1.2-5.4) K/mm3 BUN 3 L (9-20) mg/dL Creatinine 0.5 L (0.8-1.3) mg/dL Calcium 7.7 L (8.4-10.2) mg/dL Magnesium 1.40 L (1.7-2.3) mg/dL ALT < 5 L (7-56) units/L Total Protein 5.2 L (6.3-8.2) g/dL Albumin 1.8 L (3.9-5) g/dL
[2020-12-08] MEDS: PIPERACIL/TAZOBACTA 4.5/NS 100 4.5 GM/100 ML VIAL IV SCH ×4 (02:29→21:03)
[2020-12-08] MEDS: SODIUM CHLORIDE 0.9% 1000 ML 1,000 ML IV SCH ×2 (02:30→14:15)
[2020-12-08] MEDS: oxyCODONE /ACETAMINOPHEN 5-325MG TAB PO PRN ×4 (04:00→23:52)
--- NOTE | 2020-12-08 07:25 | Progress Note ---
Assessment and Plan Assessment and Plan --Sepsis/secondary to UTI/pancreatitis Current Visit: No Status: Acute Leukocytosis, tachycardia, lactic acidosis and UTI/pancreatitis Empiric antibiotics, follow cultures, supportive care, IV fluids Urine cultures positive for gram-negative rods Continue Zosyn follow culture sensitivities --Hypernatremia D5 half-normal saline Renal consult appreciated --Alcohol withdrawal delirium Current Visit: No Status: Acute Patient has tremulousness, agitation And severe confusion due to alcohol withdrawal symptoms Continue CIWA protocol ,Thiamine folic acid Restraints as needed --Acute /chronic pancreatitis/alcohol related Current Visit: No Status: Acute Symptoms significantly improved Tolerating clear liquids advance diet to regular Antiemetics, IV Protonix GI consult if no improvement --Acute kidney injury; Current Visit: Yes Status: Acute Improved --Hypertension Current Visit: No Status: Chronic Patient somewhat hypotensive. Will hold blood pressure medicines hydralazine 10 mg IV every 4 hours as needed . --Ongoing tobacco use Current Visit: No Status: Chronic Smoking cessation counseling Strongly advised nicotine patch. --UTI/E. coli Current Visit: No Status: Acute Continue Zosyn, supportive care --Severe protein calorie malnutrition Current Visit: No Status: Acute Hypoalbuminemia , albumin 2.8 Nutrition supplements, nutrition consult and supportive care -- Metabolic acidosis Current Visit: Yes Status: Acute Plan to address problem: Secondary to uremia as well as chronic pancreatitis treat underlying etiology. --DVT prophylaxis Current Visit: Yes Status: Acute Heparin subcu We will closely monitor the patient and adjust management as needed Plan of care reviewed with the patient and his nurse Patient is severely agitated confused on CIWA protocol, Patient is restraint for safety Subjective Date of service: 12/07/20 Principal diagnosis: EtOH dependence Interval history: Brief history and And daily hospital course: 60-year-old male patient was admitted with alcohol withdrawal symptoms On CIWA protocol patient has E. coli UTI completed treatment with antibiotics COVID-19 test is negative, waiting for placement however on 12/01/2020 Patient developed sudden abdominal pain, CT scan showed multiple loculated collections, sepsis IR Dr. Dugan, urology disposition Home and ID Dr. Garcia was consulted, IR is planning CT-guided aspiration Try to contact daughter Huong Hua, unable to reach left a message and requested to call back 11/20/2020; patient feels slightly better, no significant withdrawal symptoms Patient is on CIWA protocol, stable to be transferred out of IM to medical floor 11/21/2020; patient has severe agitation tremulousness, patient is on CIWA protocol Closely monitor withdrawal symptoms, adjust the medications as needed in the morning equal in both upper Advance diet to regular as tolerated. I called patient's mother and also patient's daughter Ms. Huong Hua at [phone] 11/22/2020; Patient continues to be agitated confused mumbling, On CIWA protocol, restraint for safety. E. coli UTI on Zosyn Called again patient's daughter next of kin Ms. Huong Hua at [phone][number obtained from caser in [place]] Did not filler picker the phone I left a voicemail again today to discuss about Mr. Parada's condition and treatment plan 11/23/2020 Patient continues to be agitated Resumed service 11/26/2020; Patient still has mild alcohol withdrawal symptoms Restraints for safety 11/27/2020; Patient is off CIWA protocol and restraints PT OT evaluated, PT recommending subacute rehab 11/28/2020; today patient has some mild shortness of breath and wheezing Tachycardia heart rate in 100 -110 , alert awake oriented x3 Possible fluid overload, give 1 dose of Lasix IV, checks chest x-ray 11/29/2020; patient is more alert and awake, no shortness of breath No alcohol withdrawal symptoms, [facility]; Anemia patient's hemoglobin dropped to 6.9, transfuse 1 unit PRBC Stool for occult blood, GI consult if needed 12/01/2020; stool guaiac negative Hb improved to 8.1, complains of some abdominal pain and discomfort Will check CT abdomen and pelvis Pending placementI IAdvised to quit alcohol intake CT abdomen and pelvis multifocal fluid collection IR/urology/ID were consulted, started antibiotics IR recommend CT-guided drainage 12/02/2020; CT-guided drainage pain, tried to contact and next of kin daughter Ms. Huong Hua at [phone][number obtained from caser in [place]] Did not filler picker the phone, left message to call back 12/03/2020; patient feels slightly better CT-guided drain placement yesterday per IR ID changed antibiotics to Zosyn Reevaluation by PT, recommend subacute rehab DC planning per case management We will discharge to subacute rehab when medically stable 12/04/2020; follow-up CT abdomen and pelvis 12/04/2020 Findings as above, persistent fluid collections in multiple areas 12/05/2020; CT-guided placement of abdominal drainage catheter for right perinephrotic calyceal rupture and intra-abdominal stranding of infected urine. By IR. Patient tolerated the procedure well Continue postoperative care All the consultants and recommendations noted and appreciated 12/06/2020; patient feels slightly better, has 2 drains into the pocket intra- abdominal fluid collection Draining well, IR, surgery, ID following 12/07/2020; patient feels slightly better, has 2 drains into the pocket intra- abdominal fluid collection Draining well, IR, surgery, ID following History Interval history: I have seen and examined the patient at the bedside Patient's chart and medications reviewed Patient is less agitated, confused, hallucinating On CIWA protocol Restraint for safety Vital signs noted Objective - Constitutional Vitals: Vital Signs - 12hr 12/07/20 12/07/20 12/07/20 20:00 21:00 21:06 Temperature 97.8 F Pulse Rate 86 89 90 Pulse Rate [ 89 From Monitor] Respiratory 29 H 33 H 21 Rate Blood Pressure 123/71 132/78 132/78 O2 Sat by Pulse 94 93 94 Oximetry 12/07/20 12/07/20 12/07/20 22:00 22:47 22:48 Temperature Pulse Rate 96 H 95 H Pulse Rate [ From Monitor] Respiratory 22 22 Rate Blood Pressure 109/79 131/61 O2 Sat by Pulse 97 Oximetry 12/07/20 12/07/20 12/08/20 23:00 23:48 00:00 Temperature 99.3 F Pulse Rate 92 H 84 Pulse Rate [ From Monitor] Respiratory 31 H 20 25 H Rate Blood Pressure 126/77 118/74 O2 Sat by Pulse 94 100 Oximetry 12/08/20 12/08/20 12/08/20 01:00 02:00 03:00 Temperature Pulse Rate 81 70 88 Pulse Rate [ From Monitor] Respiratory 38 H 28 H 32 H Rate Blood Pressure 124/68 139/70 126/72 O2 Sat by Pulse 93 94 92 Oximetry 12/08/20 12/08/20 12/08/20 04:00 04:30 05:00 Temperature 98.3 F Pulse Rate 84 84 76 Pulse Rate [ 84 From Monitor] Respiratory 26 H 28 H Rate Blood Pressure 130/76 118/71 O2 Sat by Pulse 94 94 Oximetry 12/08/20 12/08/20 06:00 07:00 Temperature Pulse Rate 76 72 Pulse Rate [ From Monitor] Respiratory 27 H 23 Rate Blood Pressure 117/67 121/73 O2 Sat by Pulse 92 94 Oximetry General appearance: Present: no acute distress, well-nourished - EENT Eyes: PERRL, EOM intact ENT: hearing intact, clear oral mucosa Ears: bilateral: normal - Neck Neck: supple, normal ROM - Respiratory Respiratory effort: normal Respiratory: bilateral: CTA - Breasts Breasts: normal - Cardiovascular Heart rate: 78 Rhythm: regular Heart Sounds: Present: S1 & S2. Absent: gallop, rub Extremities: no ischemia, pulses intact, No edema, normal color, Full ROM - Gastrointestinal General gastrointestinal: Present: soft, non-tender, non-distended, normal bowel sounds Rectal Exam: deferred - Genitourinary Male genitourinary: normal - Integumentary Integumentary: clear, warm, dry - Musculoskeletal Musculoskeletal: generalized weakness - Neurologic Neurologic: moves all extremities - Psychiatric Psychiatric: agitated - Labs CBC & Chem 7: 12/08/20 09:39 12/07/20 05:49 Labs: Abnormal lab results 12/07/20 Range/Units 05:49 Seg Neuts % (Manual) 87.0 H (40.0-70.0) % Lymphocytes % (Manual) 3.0 L (13.4-35.0) % Seg Neutrophils # Man 10.4 H (1.8-7.7) K/mm3 Lymphocytes # (Manual) 0.4 L (1.2-5.4) K/mm3 HEART Score - HEART Score Troponin: Troponin T < 0.010 ng/mL (0.00-0.029) 11/19/20 22:51
[2020-12-08] MEDS: PANTOPRAZOLE 40 MG TAB PO SCH (07:30)
[2020-12-08] MEDS: SODIUM BICARBONATE 650 MG TAB PO SCH ×3 (08:15→21:01)
[2020-12-08] MEDS: LOSARTAN 50 MG TAB PO SCH (09:33)
[2020-12-08] MEDS: METOPROLOL TARTRATE 25 MG TAB PO SCH ×2 (09:34→21:04)
[2020-12-08] MEDS: FOLIC ACID 1 MG TAB PO SCH (09:35)
[2020-12-08 09:54] LABS: Hemoglobin 8.9 gm/dl (11.8-15.2); Mean Corpuscular HGB Conc 33 % (32-34); Mean Corpuscular Volume 80 fl (84-94); Platelet Count 658 K/mm3 (140-440); Red Blood Count 3.36 M/mm3 (3.65-5.03)
[2020-12-08 10:04] LABS: Red Cell Distribution Width 20.3 % (13.2-15.2)
[2020-12-08] MEDS: ACETAMINOPHEN 325 MG TAB PO PRN ×3 (10:11→23:51)
[2020-12-08 11:03] LABS: Anisocytosis 1+; Band Neutrophils # (Manual) 0.3 K/mm3; Total Cells Counted 100
--- NOTE | 2020-12-08 12:44 | Progress Note ---
Assessment and Plan Assessment and Plan --Sepsis/secondary to UTI/pancreatitis Current Visit: No Status: Acute Leukocytosis, tachycardia, lactic acidosis and UTI/pancreatitis Empiric antibiotics, follow cultures, supportive care, IV fluids Urine cultures positive for gram-negative rods Continue Zosyn follow culture sensitivities Large multifocal fluid and gas collections in the right pararenal space: etiology is suspected R renal calyceal rupture causing urinary leak. Urology and IR following. Underwent IR drainage 12/02/2020 with about 500 cc of pinkish material drained. Additional CT-guided placement of 8 Greek drainage catheter in left upper quadrant fluid collection with 180 mL of purulent urine aspirated on 12/05/2020. Subcapsular splenic collection: new, etiology unclear, likely related to above. --Hypernatremia Resolved --Alcohol withdrawal delirium Current Visit: No Status: Acute Patient has tremulousness, agitation And severe confusion due to alcohol withdrawal symptoms Continue CIWA protocol ,Thiamine folic acid Restraints as needed --Acute /chronic pancreatitis/alcohol related Current Visit: No Status: Acute Symptoms significantly improved Tolerating clear liquids advance diet to regular Antiemetics, IV Protonix GI consult if no improvement --Acute kidney injury; Current Visit: Yes Status: Acute Improved --Hypertension Current Visit: No Status: Chronic Patient somewhat hypotensive. Will hold blood pressure medicines hydralazine 10 mg IV every 4 hours as needed . --Ongoing tobacco use Current Visit: No Status: Chronic Smoking cessation counseling Strongly advised nicotine patch. --UTI/E. coli Current Visit: No Status: Acute Continue Zosyn, supportive care --Severe protein calorie malnutrition Current Visit: No Status: Acute Hypoalbuminemia , albumin 2.8 Nutrition supplements, nutrition consult and supportive care -- Metabolic acidosis Current Visit: Yes Status: Acute Plan to address problem: Secondary to uremia as well as chronic pancreatitis treat underlying etiology. --DVT prophylaxis Current Visit: Yes Status: Acute Heparin subcu We will closely monitor the patient and adjust management as needed Plan of care reviewed with the patient and his nurse Patient is severely agitated confused on [facility] protocol, Patient is restraint for safety Subjective Date of service: 12/08/20 Principal diagnosis: Sepsis Interval history: Brief history and And daily hospital course: 60-year-old male patient was admitted with alcohol withdrawal symptoms On [facility] protocol patient has E. coli UTI completed treatment with antibiotics COVID-19 test is negative, waiting for placement however on 12/01/2020 Patient developed sudden abdominal pain, CT scan showed multiple loculated collections, sepsis IR Dr. Dugan, urology disposition Home and ID Dr. Garcia was consulted, IR is planning CT-guided aspiration Try to contact daughter Huong Hua, unable to reach left a message and requested to call back 11/20/2020; patient feels slightly better, no significant withdrawal symptoms Patient is on CIWA protocol, stable to be transferred out of [facility] to medical floor 11/21/2020; patient has severe agitation tremulousness, patient is on CIWA protocol Closely monitor withdrawal symptoms, adjust the medications as needed in the morning equal in both upper Advance diet to regular as tolerated. I called patient's mother and also patient's daughter Ms. Huong Hua at [phone] 11/22/2020; Patient continues to be agitated confused mumbling, On CIWA protocol, restraint for safety. E. coli UTI on Zosyn Called again patient's daughter next of kin Ms. Huong Hua at [phone][number obtained from hospice case manager Antonieta Gilda] Did not lemon picker the phone I left a voicemail again today to discuss about Mr. Parada's condition and treatment plan 11/23/2020 Patient continues to be agitated Resumed service 11/26/2020; Patient still has mild alcohol withdrawal symptoms Restraints for safety 11/27/2020; Patient is off CIWA protocol and restraints PT OT evaluated, PT recommending subacute rehab 11/28/2020; today patient has some mild shortness of breath and wheezing Tachycardia heart rate in 100 -110 , alert awake oriented x3 Possible fluid overload, give 1 dose of Lasix IV, checks chest x-ray 11/29/2020; patient is more alert and awake, no shortness of breath No alcohol withdrawal symptoms, pending subacute rehab placemen 11/30/2020; Anemia patient's hemoglobin dropped to 6.9, transfuse 1 unit PRBC Stool for occult blood, GI consult if needed 12/01/2020; stool guaiac negative Hb improved to 8.1, complains of some abdominal pain and discomfort Will check CT abdomen and pelvis Pending placementI IAdvised to quit alcohol intake CT abdomen and pelvis multifocal fluid collection IR/urology/ID were consulted, started antibiotics IR recommend CT-guided drainage 12/02/2020; CT-guided drainage pain, tried to contact and next of kin daughter Ms. Huong Hua at [phone][number obtained from hospice case manager Ms. Vo] Did not lemon picker the phone, left message to call back 12/03/2020; patient feels slightly better CT-guided drain placement yesterday per IR ID changed antibiotics to Zosyn Reevaluation by PT, recommend subacute rehab DC planning per case management We will discharge to subacute rehab when medically stable 12/04/2020; follow-up CT abdomen and pelvis 12/04/2020 Findings as above, persistent fluid collections in multiple areas 12/05/2020; CT-guided placement of abdominal drainage catheter for right perinephrotic calyceal rupture and intra-abdominal stranding of infected urine. By IR. Patient tolerated the procedure well Continue postoperative care All the consultants and recommendations noted and appreciated 12/06/2020; patient feels slightly better, has 2 drains into the pocket intra- abdominal fluid collection Draining well, IR, surgery, ID following 12/07/2020; patient feels slightly better, has 2 drains into the pocket intra- abdominal fluid collection Draining well, IR, surgery, ID following 12/08/20 patient feels slightly better, has 2 drains into the pocket intra-abdominal f luid collection Draining well, IR, surgery, ID following History Interval history: I have seen and examined the patient at the bedside Patient's chart and medications reviewed Patient is less agitated, confused, hallucinating On [facility] protocol Restraint for safety Vital signs noted Objective - Constitutional Vitals: Vital Signs - 12hr 12/08/20 12/08/20 12/08/20 01:00 02:00 03:00 Temperature Pulse Rate 81 70 88 Pulse Rate [ From Monitor] Respiratory 38 H 28 H 32 H Rate Blood Pressure 124/68 139/70 126/72 O2 Sat by Pulse 93 94 92 Oximetry 12/08/20 12/08/20 12/08/20 04:00 04:30 05:00 Temperature 98.3 F Pulse Rate 84 84 76 Pulse Rate [ 84 From Monitor] Respiratory 26 H 28 H Rate Blood Pressure 130/76 118/71 O2 Sat by Pulse 94 94 Oximetry 12/08/20 12/08/20 12/08/20 06:00 07:00 07:25 Temperature 99.8 F H Pulse Rate 76 72 Pulse Rate [ From Monitor] Respiratory 27 H 23 Rate Blood Pressure 117/67 121/73 O2 Sat by Pulse 92 94 Oximetry 12/08/20 12/08/20 12/08/20 08:00 09:00 09:33 Temperature Pulse Rate 75 79 82 Pulse Rate [ From Monitor] Respiratory 26 H 32 H Rate Blood Pressure 117/69 126/77 127/76 O2 Sat by Pulse 95 94 Oximetry 12/08/20 12/08/20 12/08/20 09:34 10:00 11:00 Temperature Pulse Rate 80 76 74 Pulse Rate [ From Monitor] Respiratory 25 H 28 H Rate Blood Pressure 127/76 124/76 121/71 O2 Sat by Pulse 94 93 Oximetry 12/08/20 12/08/20 11:50 12:00 Temperature 99.6 F Pulse Rate Pulse Rate [ From Monitor] Respiratory 25 H Rate Blood Pressure 127/70 O2 Sat by Pulse 94 Oximetry General appearance: Present: no acute distress, well-nourished - EENT Eyes: PERRL, EOM intact ENT: hearing intact, clear oral mucosa Ears: bilateral: normal - Neck Neck: supple, normal ROM - Respiratory Respiratory effort: normal Respiratory: bilateral: CTA - Breasts Breasts: normal - Cardiovascular Heart rate: 78 Rhythm: regular Heart Sounds: Present: S1 & S2. Absent: gallop, rub Extremities: pulses intact, No edema, normal color, Full ROM - Gastrointestinal General gastrointestinal: Present: soft, non-tender, non-distended, normal bowel sounds - Genitourinary Male genitourinary: normal - Integumentary Integumentary: clear, warm, dry - Musculoskeletal Musculoskeletal: 1, strength equal bilaterally - Neurologic Neurologic: moves all extremities - Psychiatric Psychiatric: memory intact, appropriate mood/affect, intact judgment & insight - Labs CBC & Chem 7: 12/09/20 04:08 12/09/20 04:08 Labs: Abnormal lab results 12/08/20 Range/Units 09:39 WBC 13.6 H (4.5-11.0) K/mm3 RBC 3.36 L (3.65-5.03) M/mm3 Hgb 8.9 L (11.8-15.2) gm/dl Hct 27.0 L (35.5-45.6) % MCV 80 L (84-94) fl MCH 26 L (28-32) pg RDW 20.3 H (13.2-15.2) % Plt Count 658 H (140-440) K/mm3 Seg Neuts % (Manual) 73.0 H (40.0-70.0) % Monocytes % (Manual) 9.0 H (0.0-7.3) % Seg Neutrophils # Man 9.9 H (1.8-7.7) K/mm3 Monocytes # (Manual) 1.2 H (0.0-0.8) K/mm3 HEART Score - HEART Score Troponin: Troponin T < 0.010 ng/mL (0.00-0.029) 11/19/20 22:51
[2020-12-09] MEDS: PIPERACIL/TAZOBACTA 4.5/NS 100 4.5 GM/100 ML VIAL IV SCH ×4 (02:09→20:28)
[2020-12-09] MEDS: SODIUM CHLORIDE 0.9% 1000 ML 1,000 ML IV SCH (02:10)
[2020-12-09 04:50] LABS: Basophils # (Auto) 0.1 K/mm3 (0.0-0.1); Basophils % (Auto) 0.6 % (0.0-1.8); Eosinophils % (Auto) 0.3 % (0.0-4.3); Hematocrit 26.3 % (35.5-45.6); Hemoglobin 8.8 gm/dl (11.8-15.2); Lymphocytes # (Auto) 1.6 K/mm3 (1.2-5.4); Lymphocytes % (Auto) 11.8 % (13.4-35.0); Mean Corpuscular HGB Conc 33 % (32-34); Mean Corpuscular Volume 79 fl (84-94); Monocytes # (Auto) 1.4 K/mm3 (0.0-0.8); Monocytes % (Auto) 10.8 % (0.0-7.3); Platelet Count 591 K/mm3 (140-440); Red Blood Count 3.32 M/mm3 (3.65-5.03)
[2020-12-09 04:51] LABS: Red Cell Distribution Width 20.2 % (13.2-15.2)
[2020-12-09 05:11] LABS: Albumin 1.4 g/dL (3.9-5); Blood Urea Nitrogen 4 mg/dL (9-20); Calcium 7.8 mg/dL (8.4-10.2); Hemolysis Index 13
[2020-12-09 05:16] LABS: Alanine Aminotransferase < 5 units/L (7-56); BUN/Creatinine Ratio 10
[2020-12-09] MEDS: SODIUM BICARBONATE 650 MG TAB PO SCH ×3 (08:28→22:19)
[2020-12-09] MEDS: MORPHINE 2 MG/1 ML INJ IV PRN ×2 (08:28→20:30)
[2020-12-09] MEDS: PANTOPRAZOLE 40 MG TAB PO SCH (08:28)
[2020-12-09] MEDS: LOSARTAN 50 MG TAB PO SCH (09:41)
[2020-12-09] MEDS: METOPROLOL TARTRATE 25 MG TAB PO SCH ×2 (09:42→22:20)
[2020-12-09] MEDS: FOLIC ACID 1 MG TAB PO SCH (09:42)
--- NOTE | 2020-12-09 12:27 | Progress Note ---
Assessment and Plan Cultures: 11/27/2020 COVID-19 PCR: Negative 11/19/2020 blood culture: No growth 11/19/2020 urine culture: E. coli 12/01/2020 blood culture: No growth 12/01/2020 urine culture: Enterococcus faecium (VRE) 12/02/2020 IR drainage culture: E.coli 12/05/2020 LUQ drainage cultures: E.coli A/P: 60-year-old male with gastroesophageal reflux disease, hypertension, hyperlipidemia, alcohol abuse admitted to the hospital on 11/19/2020 with abdominal pain from suspected pancreatitis and alcohol withdrawal: #Sepsis: Source: large multifocal fluid and gas collections in the right parar enal space. #Large multifocal fluid and gas collections in the right pararenal space: etiology is suspected R renal calyceal rupture causing urinary leak. Urology and IR following. Underwent IR drainage 12/02/2020 with about 500 cc of pinkish material drained. Additional CT-guided placement of 8 Vietnamese drainage catheter in left upper quadrant fluid collection with 180 mL of purulent urine aspirated on 12/05/2020. #Subcapsular splenic collection: new, etiology unclear, likely related to above. #Acute alcohol withdrawal, chronic alcohol abuse #JOHN: Resolved #Prior UTI: s/p abx. Recs: Continue Zosyn, D7 VRE in urine, added PO Zyvox 600 mg BID x 5 days Abdulkadir Helton MD, FACP [facility] ([facility] O: [phone] F: [phone] Subjective Date of service: 12/09/20 Principal diagnosis: Sepsis Interval history: No fever, denies any complaints. Has drains in place. Objective - Exam Narrative Exam: Physical Exam: Constitutional: awake, alert Head, Ears, Nose: Normocephalic, atraumatic. External ears, nose normal Eyes: Conjunctivae/corneas clear. No icterus. No ptosis. Neck: Supple, no meningeal signs Cardiovascular: S1, S2 normal. Respiratory: Good air entry, clear to auscultation bilaterally GI: R sided drain +. bowel sounds +. Left sided drain +, both drains with purulent output Musculoskeletal: No pedal edema, no cyanosis. Skin: No rash or abscess Hem/Lymphatic: No palpable cervical or supraclavicular nodes. No lymphangitis Psych: calm, no agitation Neurological: Awake, alert - Constitutional Vitals: Vital Signs Temp Pulse Resp BP Pulse Ox 98.6 F 88 24 138/78 96 12/09/20 08:00 12/09/20 09:42 12/09/20 09:00 12/09/20 09:42 12/09/20 09:00 Temperature -Last 24 Hours Temperature 98.6 F Temperature 99.0 F Temperature 99.2 F Temperature 99.6 F Temperature 98.9 F - Labs CBC & Chem 7: 12/09/20 04:08 12/09/20 04:08 Labs: Abnormal lab results 12/09/20 12/09/20 Range/Units 04:08 04:08 WBC 13.1 H (4.5-11.0) K/mm3 RBC 3.32 L (3.65-5.03) M/mm3 Hgb 8.8 L (11.8-15.2) gm/dl Hct 26.3 L (35.5-45.6) % MCV 79 L (84-94) fl MCH 26 L (28-32) pg RDW 20.2 H (13.2-15.2) % Plt Count 591 H (140-440) K/mm3 Lymph % (Auto) 11.8 L (13.4-35.0) % [place] % (Auto) 10.8 H (0.0-7.3) % [place] # (Auto) 1.4 H (0.0-0.8) K/mm3 Seg Neutrophils % 76.5 H (40.0-70.0) % Seg Neutrophils # 10.0 H (1.8-7.7) K/mm3 Sodium 136 L (137-145) mmol/L BUN 4 L (9-20) mg/dL Creatinine 0.4 L (0.8-1.3) mg/dL Calcium 7.8 L (8.4-10.2) mg/dL ALT < 5 L (7-56) units/L Total Protein 5.4 L (6.3-8.2) g/dL Albumin 1.4 L (3.9-5) g/dL
--- NOTE | 2020-12-09 13:18 | Progress Note ---
Assessment and Plan - Patient Problems (1) Intra-abdominal abscess Current Visit: Yes Status: Acute Plan to address problem: 1) No new recommendations 2) Follow ID rec's re antibiotics Subjective Date of service: 12/09/20 Patient Reports: Positive: no new complaints Objective Vital Signs - 12hr 12/09/20 12/09/20 12/09/20 02:00 03:00 03:57 Temperature 99.0 F Pulse Rate 73 66 Pulse Rate [ From Monitor] Respiratory 22 22 Rate Blood Pressure 117/67 107/59 O2 Sat by Pulse 96 94 Oximetry 12/09/20 12/09/20 12/09/20 04:00 05:00 06:00 Temperature Pulse Rate 75 70 74 Pulse Rate [ 75 From Monitor] Respiratory 21 17 22 Rate Blood Pressure 112/68 114/66 115/69 O2 Sat by Pulse 96 96 97 Oximetry 12/09/20 12/09/20 12/09/20 07:00 08:00 09:00 Temperature 98.6 F Pulse Rate 75 87 80 Pulse Rate [ From Monitor] Respiratory 20 34 H 24 Rate Blood Pressure 122/72 124/68 134/74 O2 Sat by Pulse 97 100 96 Oximetry 12/09/20 12/09/20 09:41 09:42 Temperature Pulse Rate 88 88 Pulse Rate [ From Monitor] Respiratory Rate Blood Pressure 138/78 138/78 O2 Sat by Pulse Oximetry - Abdomen soft, bowel sounds normal (Minimal diffuse tenderness without rebound or guarding.) - Labs 12/09/20 04:08 12/09/20 04:08 Diabetes panel 12/09/20 Range/Units 04:08 Sodium 136 L (137-145) mmol/L Potassium 3.8 (3.6-5.0) mmol/L Chloride 104.0 (98-107) mmol/L Carbon Dioxide 25 (22-30) mmol/L BUN 4 L (9-20) mg/dL Creatinine 0.4 L (0.8-1.3) mg/dL Glucose 78 (75-100) mg/dL Calcium 7.8 L (8.4-10.2) mg/dL AST 12 (5-40) units/L ALT < 5 L (7-56) units/L Alkaline Phosphatase 111 (35-129) units/L Total Protein 5.4 L (6.3-8.2) g/dL Albumin 1.4 L (3.9-5) g/dL Calcium panel 12/09/20 Range/Units 04:08 Calcium 7.8 L (8.4-10.2) mg/dL Albumin 1.4 L (3.9-5) g/dL Pituitary panel 12/09/20 Range/Units 04:08 Sodium 136 L (137-145) mmol/L Potassium 3.8 (3.6-5.0) mmol/L Chloride 104.0 (98-107) mmol/L Carbon Dioxide 25 (22-30) mmol/L BUN 4 L (9-20) mg/dL Creatinine 0.4 L (0.8-1.3) mg/dL Glucose 78 (75-100) mg/dL Calcium 7.8 L (8.4-10.2) mg/dL Adrenal panel 12/09/20 Range/Units 04:08 Sodium 136 L (137-145) mmol/L Potassium 3.8 (3.6-5.0) mmol/L Chloride 104.0 (98-107) mmol/L Carbon Dioxide 25 (22-30) mmol/L BUN 4 L (9-20) mg/dL Creatinine 0.4 L (0.8-1.3) mg/dL Glucose 78 (75-100) mg/dL Calcium 7.8 L (8.4-10.2) mg/dL Total Bilirubin 0.40 (0.1-1.2) mg/dL AST 12 (5-40) units/L ALT < 5 L (7-56) units/L Alkaline Phosphatase 111 (35-129) units/L Total Protein 5.4 L (6.3-8.2) g/dL Albumin 1.4 L (3.9-5) g/dL
[2020-12-09] MEDS: LINEZOLID 600 MG TAB PO SCH ×2 (14:00→22:20)
[2020-12-09] MEDS: oxyCODONE /ACETAMINOPHEN 5-325MG TAB PO PRN (15:03)
--- NOTE | 2020-12-09 18:38 | Progress Note ---
Assessment and Plan Assessment and Plan --Sepsis/secondary to UTI/pancreatitis Current Visit: No Status: Acute Leukocytosis, tachycardia, lactic acidosis and UTI/pancreatitis Empiric antibiotics, follow cultures, supportive care, IV fluids Urine cultures positive for gram-negative rods Continue Zosyn follow culture sensitivities Large multifocal fluid and gas collections in the right pararenal space: etiology is suspected R renal calyceal rupture causing urinary leak. Urology and IR following. Underwent IR drainage 12/02/2020 with about 500 cc of pinkish material drained. Additional CT-guided placement of 8 [place] drainage catheter in left upper quadrant fluid collection with 180 mL of purulent urine aspirated on 12/05/2020. Subcapsular splenic collection: new, etiology unclear, likely related to above. Continue IV antibiotics --Hypernatremia Sodium levels are normal --Alcohol withdrawal delirium Current Visit: No Status: Acute Less delirious neck Continue CIWA protocol --Acute /chronic pancreatitis/alcohol related Current Visit: No Status: Acute Symptoms significantly improved Tolerating clear liquids advance diet to regular Antiemetics, IV Protonix GI consult if no improvement --Acute kidney injury; Current Visit: Yes Status: Acute Improved --Hypertension Current Visit: No Status: Chronic Patient somewhat hypotensive. Will hold blood pressure medicines hydralazine 10 mg IV every 4 hours as needed . --Ongoing tobacco use Current Visit: No Status: Chronic Smoking cessation counseling Strongly advised nicotine patch. --UTI/E. coli Current Visit: No Status: Acute Continue Zosyn, supportive care --Severe protein calorie malnutrition Current Visit: No Status: Acute Hypoalbuminemia , albumin 2.8 Nutrition supplements, nutrition consult and supportive care -- Metabolic acidosis Current Visit: Yes Status: Acute Plan to address problem: Secondary to uremia as well as chronic pancreatitis treat underlying etiology. --DVT prophylaxis Current Visit: Yes Status: Acute Heparin subcu We will closely monitor the patient and adjust management as needed Plan of care reviewed with the patient and his nurse Patient is less agitated Continue CIWA protocol Subjective Date of service: 12/09/20 Principal diagnosis: Sepsis Interval history: Brief history and And daily hospital course: 60-year-old male patient was admitted with alcohol withdrawal symptoms On [facility]WA protocol patient has E. coli UTI completed treatment with antibiotics COVID-19 test is negative, waiting for placement however on 12/01/2020 Patient developed sudden abdominal pain, CT scan showed multiple loculated collections, sepsis IR Dr. Dugan, urology disposition Home and ID Dr. Garcia was consulted, IR is planning CT-guided aspiration Try to contact daughter Huong Hua, unable to reach left a message and requested to call back 11/20/2020; patient feels slightly better, no significant withdrawal symptoms Patient is on CIWA protocol, stable to be transferred out of [facility] to medical floor 11/21/2020; patient has severe agitation tremulousness, patient is on CIWA protocol Closely monitor withdrawal symptoms, adjust the medications as needed in the morning equal in both upper Advance diet to regular as tolerated. I called patient's mother and also patient's daughter Ms. Huong Hua at [phone] 11/22/2020; Patient continues to be agitated confused mumbling, On CIWA protocol, restraint for safety. E. coli UTI on Zosyn Called again patient's daughter next of kin Ms. Huong Hua at [phone][number obtained from disability case manager Ms. Vo] Did not tile picker the phone I left a voicemail again today to discuss about Mr. Parada's condition and treatment plan 11/23/2020 Patient continues to be agitated Resumed service 11/26/2020; Patient still has mild alcohol withdrawal symptoms Restraints for safety 11/27/2020; Patient is off CIWA protocol and restraints PT OT evaluated, PT recommending subacute rehab 11/28/2020; today patient has some mild shortness of breath and wheezing Tachycardia heart rate in 100 -110 , alert awake oriented x3 Possible fluid overload, give 1 dose of Lasix IV, checks chest x-ray 11/29/2020; patient is more alert and awake, no shortness of breath No alcohol withdrawal symptoms, [facility]; Anemia patient's hemoglobin dropped to 6.9, transfuse 1 unit PRBC Stool for occult blood, GI consult if needed 12/01/2020; stool guaiac negative Hb improved to 8.1, complains of some abdominal pain and discomfort Will check CT abdomen and pelvis Pending placementI IAdvised to quit alcohol intake CT abdomen and pelvis multifocal fluid collection IR/urology/ID were consulted, started antibiotics IR recommend CT-guided drainage 12/02/2020; CT-guided drainage pain, tried to contact and next of kin daughter Ms. Huong Hua at [phone][number obtained from disability case manager Ms. Vo] Did not tile picker the phone, left message to call back 12/03/2020; patient feels slightly better CT-guided drain placement yesterday per IR ID changed antibiotics to Zosyn Reevaluation by PT, recommend subacute rehab DC planning per case management We will discharge to subacute rehab when medically stable 12/04/2020; follow-up CT abdomen and pelvis 12/04/2020 Findings as above, persistent fluid collections in multiple areas 12/05/2020; CT-guided placement of abdominal drainage catheter for right perinephrotic calyceal rupture and intra-abdominal stranding of infected urine. By IR. Patient tolerated the procedure well Continue postoperative care All the consultants and recommendations noted and appreciated 12/06/2020; patient feels slightly better, has 2 drains into the pocket intra- abdominal fluid collection Draining well, IR, surgery, ID following 12/07/2020; patient feels slightly better, has 2 drains into the pocket intra- abdominal fluid collection Draining well, IR, surgery, ID following 12/08/20 patient feels slightly better, has 2 drains into the pocket intra-abdominal fluid collection Draining well, IR, surgery, ID following 12/09/20 patient feels slightly better, has 2 drains into the pocket intra-abdominal fluid collection Draining well, IR, surgery, ID following History Interval history: I have seen and examined the patient at the bedside Patient's chart and medications reviewed Patient is less agitated, confused, hallucinating On [facility] protocol Restraint for safety Vital signs noted Objective - Constitutional Vitals: Vital Signs - 12hr 12/09/20 12/09/20 12/09/20 07:00 08:00 09:00 Temperature 98.6 F Pulse Rate 75 87 80 Respiratory 20 34 H 24 Rate Blood Pressure 122/72 124/68 134/74 O2 Sat by Pulse 97 100 96 Oximetry 12/09/20 12/09/20 12/09/20 09:41 09:42 10:00 Temperature Pulse Rate 88 88 82 Respiratory 23 Rate Blood Pressure 138/78 138/78 146/71 O2 Sat by Pulse 96 Oximetry 12/09/20 12/09/20 12/09/20 11:00 12:00 13:00 Temperature 100.1 F H Pulse Rate 81 85 86 Respiratory 26 H 31 H 30 H Rate Blood Pressure 136/70 122/75 120/73 O2 Sat by Pulse 96 96 93 Oximetry 12/09/20 12/09/20 12/09/20 14:00 15:00 16:00 Temperature 100.2 F H Pulse Rate 85 90 91 H Respiratory 28 H 35 H 32 H Rate Blood Pressure 121/71 126/72 121/73 O2 Sat by Pulse 96 69 L 96 Oximetry 12/09/20 12/09/20 17:00 18:00 Temperature Pulse Rate 97 H 92 H Respiratory 32 H Rate Blood Pressure 110/67 102/64 O2 Sat by Pulse 96 95 Oximetry General appearance: Present: no acute distress, well-nourished - EENT Eyes: PERRL, EOM intact ENT: hearing intact, clear oral mucosa Ears: bilateral: normal - Neck Neck: supple, normal ROM - Respiratory Respiratory effort: normal Respiratory: bilateral: CTA - Breasts Breasts: normal - Cardiovascular Heart rate: 78 Rhythm: regular Heart Sounds: Present: S1 & S2. Absent: gallop, rub Extremities: pulses intact, No edema, normal color, Full ROM - Gastrointestinal General gastrointestinal: Present: soft, non-tender, non-distended, normal bowel sounds, other ([address]) - Genitourinary Male genitourinary: normal - Integumentary Integumentary: clear, warm, dry - Musculoskeletal Musculoskeletal: 1, strength equal bilaterally - Neurologic Neurologic: moves all extremities - Psychiatric Psychiatric: memory intact, appropriate mood/affect, intact judgment & insight - Labs CBC & Chem 7: 12/09/20 04:08 12/09/20 04:08 Labs: Abnormal lab results 12/02/20 12/09/20 12/09/20 Range/Units 22:38 04:08 04:08 WBC 13.1 H (4.5-11.0) K/mm3 RBC 3.32 L (3.65-5.03) M/mm3 Hgb 8.8 L (11.8-15.2) gm/dl Hct 26.3 L (35.5-45.6) % MCV 79 L (84-94) fl MCH 26 L (28-32) pg RDW 20.2 H (13.2-15.2) % Plt Count 591 H (140-440) K/mm3 Lymph % (Auto) 11.8 L (13.4-35.0) % [place] % (Auto) 10.8 H (0.0-7.3) % [place] # (Auto) 1.4 H (0.0-0.8) K/mm3 Seg Neutrophils % 76.5 H (40.0-70.0) % Seg Neutrophils # 10.0 H (1.8-7.7) K/mm3 Sodium 136 L (137-145) mmol/L BUN 4 L (9-20) mg/dL Creatinine 0.4 L (0.8-1.3) mg/dL Calcium 7.8 L (8.4-10.2) mg/dL ALT < 5 L (7-56) units/L Total Protein 5.4 L (6.3-8.2) g/dL Albumin 1.4 L (3.9-5) g/dL Lipase > 6000 H (13-60) units/L HEART Score - HEART Score Troponin: Troponin T < 0.010 ng/mL (0.00-0.029) 11/19/20 22:51
[2020-12-10] MEDS: PIPERACIL/TAZOBACTA 4.5/NS 100 4.5 GM/100 ML VIAL IV SCH ×4 (02:02→20:08)
[2020-12-10] MEDS: oxyCODONE /ACETAMINOPHEN 5-325MG TAB PO PRN ×2 (06:26→18:38)
[2020-12-10] MEDS: SODIUM BICARBONATE 650 MG TAB PO SCH ×3 (08:30→19:57)
[2020-12-10] MEDS: PANTOPRAZOLE 40 MG TAB PO SCH (08:30)
[2020-12-10] MEDS: METOPROLOL TARTRATE 25 MG TAB PO SCH ×3 (09:39→21:51)
[2020-12-10] MEDS: LOSARTAN 50 MG TAB PO SCH (09:39)
[2020-12-10] MEDS: FOLIC ACID 1 MG TAB PO SCH (09:39)
[2020-12-10] MEDS: LINEZOLID 600 MG TAB PO SCH ×2 (09:40→21:52)
--- NOTE | 2020-12-10 11:02 | XRay Report ---
CHEST 1 VIEW INDICATION: chest congestion. COMPARISON: 12/02/2020 FINDINGS: Support devices: None. Heart: Stable borderline heart size. Lungs/Pleura: There is poor inspiration. Hazy airspace opacities in the lower lung zones have increas ed slightly since the previous exam. This appears to represent increased bibasilar atelectatic change s. Small layering pleural effusions are also suspected. No pneumothorax. Additional findings: None. IMPRESSION: Bibasilar atelectatic changes are suspected, slightly increased. Trace to small bilateral pleural ef fusions. Signer Name: Patrick Kong Jr, MD Signed: 12/10/2020 10:58 AM Workstation Name: [id number]
--- NOTE | 2020-12-10 12:10 | Progress Note ---
Assessment and Plan Cultures: 11/27/2020 COVID-19 PCR: Negative 11/19/2020 blood culture: No growth 11/19/2020 urine culture: E. coli 12/01/2020 blood culture: No growth 12/01/2020 urine culture: Enterococcus faecium (VRE) 12/02/2020 IR drainage culture: E.coli 12/05/2020 LUQ drainage cultures: E.coli A/P: 60-year-old male with gastroesophageal reflux disease, hypertension, hyperlipidemia, alcohol abuse admitted to the hospital on 11/19/2020 with abdominal pain from suspected pancreatitis and alcohol withdrawal: #Sepsis: Source: large multifocal fluid and gas collections in the right parar enal space. #Large multifocal fluid and gas collections in the right pararenal space: etiology is suspected R renal calyceal rupture causing urinary leak. Urology and IR following. Underwent IR drainage 12/02/2020 with about 500 cc of pinkish material drained. Additional CT-guided placement of 8 Brazilian drainage catheter in left upper quadrant fluid collection with 180 mL of purulent urine aspirated on 12/05/2020. #Subcapsular splenic collection: new, etiology unclear, likely related to above. #Acute alcohol withdrawal, chronic alcohol abuse #JOHN: Resolved #Prior UTI: s/p abx. Recs: -Continue Zosyn, D8 -PO Zyvox 600 mg BID, D1 of 5 -f/u urology plan regarding ruptured calyx -may need additional imaging for any residual collection and need for additional drainage Abdulkadir Helton MD, FACP [facility] ([facility] O: [phone] F: [phone] Subjective Date of service: 12/10/20 Principal diagnosis: Sepsis Interval history: Low grade fever, denies any complaints. Has drains in place. Objective - Exam Narrative Exam: Physical Exam: Constitutional: awake, alert Head, Ears, Nose: Normocephalic, atraumatic. External ears, nose normal Eyes: Conjunctivae/corneas clear. No icterus. No ptosis. Neck: Supple, no meningeal signs Cardiovascular: S1, S2 normal. Respiratory: Good air entry, clear to auscultation bilaterally GI: R sided drain +. bowel sounds +. Left sided drain +, both drains with purulent output Musculoskeletal: No pedal edema, no cyanosis. Skin: No rash or abscess Hem/Lymphatic: No palpable cervical or supraclavicular nodes. No lymphangitis Psych: calm, no agitation Neurological: Awake, alert - Constitutional Vitals: Vital Signs Temp Pulse Resp BP Pulse Ox 99.6 F 101 H 29 H 105/64 94 12/10/20 08:00 12/10/20 09:42 12/10/20 08:00 12/10/20 09:42 12/10/20 08:00 Temperature -Last 24 Hours Temperature 99.6 F Temperature 99.2 F Temperature 100.2 F Temperature 99.2 F Temperature 99.2 F Temperature 100.2 F - Labs CBC & Chem 7: 12/09/20 04:08 12/09/20 04:08 Labs: Abnormal lab results 12/02/20 12/09/20 Range/Units 22:38 21:49 POC Glucose 63 L (70-105) mg/dL Lipase > 6000 H (13-60) units/L
--- NOTE | 2020-12-10 12:30 | Progress Note ---
Assessment and Plan Assessment and plan: 60-year-old -H[place]ian male who presented to [facility] for acute pancreatitis has been diagnosed with multifocal fluid and gas collection in the right pararenal space secondary to right renal calyceal rupture and urinary leak. --Sepsis/secondary right renal calyceal rupture Current Visit: No Status: Acute Urology following, recommended placement of drains General surgery following Infectious disease following Large multifocal fluid and gas collections in the right pararenal space: etiology is suspected R renal calyceal rupture causing urinary leak. Underwent IR drainage 12/02/2020 with about 500 cc of pinkish material drained. Additional CT-guided placement of 8 Albanian drainage catheter in left upper quadrant fluid collection with 180 mL of purulent urine aspirated on 12/05/2020. Subcapsular splenic collection: new, etiology unclear, likely related to above. Surgical culture showing E. coli Urine culture showing E. coli, VRE Patient placed on Zyvox, Zosyn antibiotics --Hypernatremia Resolved --Alcohol withdrawal delirium Current Visit: No Status: Acute Currently on CIWA protocol No signs of withdrawal --Acute /chronic pancreatitis/alcohol related Current Visit: No Status: Acute Currently tolerating diet, no abdominal pain --Acute kidney injury; Current Visit: Yes Status: Acute Resolved --Hypertension Current Visit: No Status: Chronic Patient somewhat hypotensive. Metoprolol 12.5 mg twice daily hydralazine 10 mg IV every 4 hours as needed . --Nicotine dependence Current Visit: No Status: Chronic Smoking cessation counseling Nicotine patch as needed --VRE UTI/E. coli Current Visit: No Status: Acute Zosyn --Severe protein calorie malnutrition Current Visit: No Status: Acute Hypoalbuminemia , albumin 2.8 Nutrition supplements, nutrition consult and supportive care -- Metabolic acidosis Current Visit: Yes Status: Acute Plan to address problem: Secondary to uremia as well as chronic pancreatitis treat underlying etiology. Resolved DVT prophylaxis: Heparin CODE STATUS: Full Disposition: Continue drainage of perirenal infection. Continue antibiotics. History Interval history: 60-year-old male patient was admitted with alcohol withdrawal symptoms On CIWA protocol patient has E. coli UTI completed treatment with antibiotics COVID-19 test is negative, waiting for placement however on 12/01/2020 Patient developed sudden abdominal pain, CT scan showed multiple loculated collections, sepsis IR Dr. Dugan, urology disposition Home and ID Dr. Garcia was consulted, IR is planning CT-guided aspiration Try to contact daughter Huong Hua, unable to reach left a message and requested to call back 11/20/2020; patient feels slightly better, no significant withdrawal symptoms Patient is on CIWA protocol, stable to be transferred out of IMCU to medical floor 11/21/2020; patient has severe agitation tremulousness, patient is on CIWA protocol Closely monitor withdrawal symptoms, adjust the medications as needed in the morning equal in both upper Advance diet to regular as tolerated. I called patient's mother and also patient's daughter Ms. Huong Hua at [phone] 11/22/2020; Patient continues to be agitated confused mumbling, On CIWA protocol, restraint for safety. E. coli UTI on Zosyn Called again patient's daughter next of kin Ms. Huong Hua at [phone][number obtained from counter caser Ms. Vo] Did not last picker the phone I left a voicemail again today to discuss about Mr. Parada's condition and treatment plan 11/23/2020 Patient continues to be agitated Resumed service 11/26/2020; Patient still has mild alcohol withdrawal symptoms Restraints for safety 11/27/2020; Patient is off CIWA protocol and restraints PT OT evaluated, PT recommending subacute rehab 11/28/2020; today patient has some mild shortness of breath and wheezing Tachycardia heart rate in 100 -110 , alert awake oriented x3 Possible fluid overload, give 1 dose of Lasix IV, checks chest x-ray 11/29/2020; patient is more alert and awake, no shortness of breath No alcohol withdrawal symptoms, [facility] 11/30/[facility]; Anemia patient's hemoglobin dropped to 6.9, transfuse 1 unit PRBC Stool for occult blood, GI consult if needed 12/01/2020; stool guaiac negative Hb improved to 8.1, complains of some abdominal pain and discomfort Will check CT abdomen and pelvis Pending placement IAdvised to quit alcohol intake CT abdomen and pelvis multifocal fluid collection IR/urology/ID were consulted, started antibiotics IR recommend CT-guided drainage 12/02/2020; CT-guided drainage pain, tried to contact and next of kin daughter Ms. Huong Hua at [phone][number obtained from counter caser Ms. Vo] Did not last picker the phone, left message to call back 12/03/2020; patient feels slightly better CT-guided drain placement yesterday per IR ID changed antibiotics to Zosyn Reevaluation by PT, recommend subacute rehab DC planning per case management We will discharge to subacute rehab when medically stable 12/04/2020; follow-up CT abdomen and pelvis 12/04/2020 Findings as above, persistent fluid collections in multiple areas 12/05/2020; CT-guided placement of abdominal drainage catheter for right perinephrotic calyceal rupture and intra-abdominal stranding of infected urine. Patient tolerated the procedure well Continue postoperative care All the consultants and recommendations noted and appreciated 12/06/2020; patient feels slightly better, has 2 drains into the pocket intra- abdominal fluid collection Draining well, IR, surgery, ID following 12/07/2020; patient feels slightly better, has 2 drains into the pocket intra- abdominal fluid collection 12/08/20 patient feels slightly better, has 2 drains into the pocket intra-abdominal fluid collection Draining well, IR, surgery, ID following 12/09/20 patient feels slightly better, has 2 drains into the pocket intra-abdominal fluid collection Draining well, IR, surgery, ID following 12/10/2020: Patient seen and examined, states that he is improved, does have some crackles in his lungs, somewhat difficult to breathe. No fevers or chills overnight. Continues on antibiotics. Hospitalist Physical - Physical exam Narrative exam: General appearance: no acute distress, well-nourished EENT: PERRL, EOM intact, hearing intact, clear oral mucosa, poor dentition Neck: Present: supple, normal ROM Respiratory: Bilateral crackles heard in middle lung wiggins with us for upper respiratory rales Cardiovascular: Regular rate/rhythm, Normal S1 & S2. No gallop, rub Extremities: no ischemia, No edema, normal temperature, normal color, Full ROM Abdominal: Abdominal drain, right flank drain, soft, no tenderness, non- distended, normal bowel sounds Integumentary: Present: clear, warm, dry no wounds, no erythema noted Psychiatric: appropriate mood/affect, intact judgment & insight Neurologic: CNII-XII intact, moves all extremities, no sensory or motor abnormalities - Constitutional Vitals: Temp Pulse Resp BP Pulse Ox 99.6 F 101 H 29 H 105/64 94 12/10/20 08:00 12/10/20 09:42 12/10/20 08:00 12/10/20 09:42 12/10/20 08:00 HEART Score - HEART Score Troponin: Troponin T < 0.010 ng/mL (0.00-0.029) 11/19/20 22:51 Results - Labs CBC & Chem 7: 12/09/20 04:08 12/09/20 04:08 Labs: Laboratory Last Values WBC 13.1 K/mm3 (4.5-11.0) H 12/09/20 04:08 RBC 3.32 M/mm3 (3.65-5.03) L 12/09/20 04:08 Hgb 8.8 gm/dl (11.8-15.2) L 12/09/20 04:08 Hct 26.3 % (35.5-45.6) L 12/09/20 04:08 MCV 79 fl (84-94) L 12/09/20 04:08 MCH 26 pg (28-32) L 12/09/20 04:08 MCHC 33 % (32-34) 12/09/20 04:08 RDW 20.2 % (13.2-15.2) H 12/09/20 04:08 Plt Count 591 K/mm3 (140-440) H 12/09/20 04:08 Lymph % (Auto) 11.8 % (13.4-35.0) L 12/09/20 04:08 [place] % (Auto) 10.8 % (0.0-7.3) H 12/09/20 04:08 Eos % (Auto) 0.3 % (0.0-4.3) 12/09/20 04:08 Baso % (Auto) 0.6 % (0.0-1.8) 12/09/20 04:08 Lymph # (Auto) 1.6 K/mm3 (1.2-5.4) 12/09/20 04:08 Lawrence # (Auto) 1.4 K/mm3 (0.0-0.8) H 12/09/20 04:08 Eos # (Auto) 0.0 K/mm3 (0.0-0.4) 12/09/20 04:08 Baso # (Auto) 0.1 K/mm3 (0.0-0.1) 12/09/20 04:08 Add Manual Diff Complete 12/08/20 09:39 Total Counted 100 12/08/20 09:39 Seg Neutrophils % 76.5 % (40.0-70.0) H 12/09/20 04:08 Seg Neuts % (Manual) 73.0 % (40.0-70.0) H 12/08/20 09:39 Band Neutrophils % 2.0 % 12/08/20 09:39 Lymphocytes % (Manual) 16.0 % (13.4-35.0) 12/08/20 09:39 Reactive Lymphs % (Man) 1.0 % 12/07/20 05:49 Monocytes % (Manual) 9.0 % (0.0-7.3) H 12/08/20 09:39 Eosinophils % (Manual) 1.0 % (0.0-4.3) 12/04/20 19:01 Metamyelocytes % 3.0 % 12/07/20 05:49 Myelocytes % 2.0 % 12/02/20 07:01 Nucleated RBC % Not Reportable 12/08/20 09:39 Seg Neutrophils # 10.0 K/mm3 (1.8-7.7) H 12/09/20 04:08 Seg Neutrophils # Man 9.9 K/mm3 (1.8-7.7) H 12/08/20 09:39 Band Neutrophils # 0.3 K/mm3 12/08/20 09:39 Lymphocytes # (Manual) 2.2 K/mm3 (1.2-5.4) 12/08/20 09:39 Abs React Lymphs (Man) 0.0 K/mm3 12/08/20 09:39 Monocytes # (Manual) 1.2 K/mm3 (0.0-0.8) H 12/08/20 09:39 Eosinophils # (Manual) 0.0 K/mm3 (0.0-0.4) 12/08/20 09:39 Basophils # (Manual) 0.0 K/mm3 (0.0-0.1) 12/08/20 09:39 Metamyelocytes # 0.0 K/mm3 12/08/20 09:39 Myelocytes # 0.0 K/mm3 12/08/20 09:39 Promyelocytes # 0.0 K/mm3 12/08/20 09:39 Blast Cells # 0.0 K/mm3 12/08/20 09:39 WBC Morphology Not Reportable 12/08/20 09:39 WBC Morphology TNR 12/08/20 09:39 Hypersegmented Neuts Not Reportable 12/08/20 09:39 Hyposegmented Neuts Not Reportable 12/08/20 09:39 Hypogranular Neuts Not Reportable 12/08/20 09:39 Smudge Cells Not Reportable 12/08/20 09:39 Toxic Granulation Not Reportable 12/08/20 09:39 Toxic Vacuolation Not Reportable 12/08/20 09:39 Dohle Bodies Not Reportable 12/08/20 09:39 Pelger-Huet Anomaly Not Reportable 12/08/20 09:39 Aiden Rods Not Reportable 12/08/20 09:39 Platelet Estimate Not Reportable 12/08/20 09:39 Clumped Platelets Not Reportable 12/08/20 09:39 Plt Clumps, EDTA Not Reportable 12/08/20 09:39 Large Platelets Not Reportable 12/08/20 09:39 Giant Platelets Not Reportable 12/08/20 09:39 Platelet Satelliting Not Reportable 12/08/20 09:39 Plt Morphology Comment Not Reportable 12/08/20 09:39 RBC Morphology Not Reportable 12/08/20 09:39 Dimorphic RBCs Not Reportable 12/08/20 09:39 Polychromasia Not Reportable 12/08/20 09:39 Hypochromasia Not Reportable 12/08/20 09:39 Poikilocytosis Not Reportable 12/08/20 09:39 Anisocytosis 1+ 12/08/20 09:39 Microcytosis Not Reportable 12/08/20 09:39 Macrocytosis Not Reportable 12/08/20 09:39 Spherocytes Not Reportable 12/08/20 09:39 Pappenheimer Bodies Not Reportable 12/08/20 09:39 Sickle Cells Not Reportable 12/08/20 09:39 Target Cells Not Reportable 12/08/20 09:39 Tear Drop Cells Not Reportable 12/08/20 09:39 Ovalocytes Not Reportable 12/08/20 09:39 Stomatocytes Few 12/04/20 19:01 Helmet Cells Not Reportable 12/08/20 09:39 [place] Bodies Not Reportable 12/08/20 09:39 [place] Rings Not Reportable 12/08/20 09:39 [employer] Cells Not Reportable 12/08/20 09:39 Bite Cells Not Reportable 12/08/20 09:39 Crenated Cell Not Reportable 12/08/20 09:39 Elliptocytes Not Reportable 12/08/20 09:39 Acanthocytes (Spur) Not Reportable 12/08/20 09:39 Rouleaux Not Reportable 12/08/20 09:39 Hemoglobin C Crystals Not Reportable 12/08/20 09:39 Schistocytes Not Reportable 12/08/20 09:39 Malaria parasites Not Reportable 12/08/20 09:39 Florin Bodies Not Reportable 12/08/20 09:39 Hem Pathologist Commnt No 12/08/20 09:39 PT 15.8 Sec. (12.2-14.9) H 12/01/20 05:53 INR 1.21 (0.87-1.13) H 12/01/20 05:53 APTT 33.7 Sec. (24.2-36.6) 12/01/20 05:53 D-Dimer 1767.06 ng/mlDDU (0-234) H 11/19/20 16:44 ABG pH 7.454 (7.320-7.450) H 11/28/20 17:47 POC ABG pCO2 25.8 mmHg (32.0-48.0) L 11/28/20 17:47 POC ABG pO2 65.5 mmHg (83-108) L 11/28/20 17:47 POC ABG HCO3 17.7 11/28/20 17:47 ABG O2 Saturation 94.3 (0-100) 11/28/20 17:47 POC ABG Base Excess -5.5 11/28/20 17:47 ABG Hemoglobin 7.0 (12.0-17.5) L 11/28/20 17:47 ABG Oxyhemoglobin 92.2 (94-98) L 11/28/20 17:47 ABG Methemoglobin 0.3 (0.0-1.5) 11/28/20 17:47 ABG Sodium 143.6 mmol/L (136.0-145.0) 11/28/20 17:47 ABG Potassium 3.6 mmol/L (3.40-4.50) 11/28/20 17:47 ABG Chloride 117.0 mmol/L (98-107) H 11/28/20 17:47 ABG Glucose 104 mg/dL (65-95) H 11/28/20 17:47 Carboxyhemoglobin 1.9 (0.5-1.5) H 11/28/20 17:47 FiO2 % 21.0 11/28/20 17:47 Sodium 136 mmol/L (137-145) L 12/09/20 04:08 Potassium 3.8 mmol/L (3.6-5.0) 12/09/20 04:08 Chloride 104.0 mmol/L (98-107) 12/09/20 04:08 Carbon Dioxide 25 mmol/L (22-30) 12/09/20 04:08 Anion Gap 11 mmol/L 12/09/20 04:08 BUN 4 mg/dL (9-20) L 12/09/20 04:08 Creatinine 0.4 mg/dL (0.8-1.3) L 12/09/20 04:08 Estimated GFR > 60 ml/min 12/09/20 04:08 BUN/Creatinine Ratio 10 % 12/09/20 04:08 Glucose 78 mg/dL (75-100) 12/09/20 04:08 POC Glucose 102 mg/dL (70-105) 12/10/20 11:46 Lactic Acid 3.10 mmol/L (0.7-2.0) H* 11/19/20 18:28 Calcium 7.8 mg/dL (8.4-10.2) L 12/09/20 04:08 Phosphorus 2.60 mg/dL (2.5-4.5) 12/07/20 05:49 Magnesium 1.40 mg/dL (1.7-2.3) L 12/07/20 05:49 Total Bilirubin 0.40 mg/dL (0.1-1.2) 12/09/20 04:08 Direct Bilirubin 0.2 mg/dL (0-0.2) 11/19/20 16:44 Indirect Bilirubin 0.3 mg/dL 11/19/20 16:44 AST 12 units/L (5-40) 12/09/20 04:08 ALT < 5 units/L (7-56) L 12/09/20 04:08 Alkaline Phosphatase 111 units/L (35-129) 12/09/20 04:08 Total Creatine Kinase 26 units/L (55-170) L 11/19/20 16:44 CK-MB (CK-2) < 1.0 ng/mL (0.0-4.0) 11/19/20 16:44 CK-MB (CK-2) Rel Index 3.8 (0-4) 11/19/20 16:44 Troponin T < 0.010 ng/mL (0.00-0.029) 11/19/20 22:51 NT-Pro-B Natriuret Pep 454.0 pg/mL (0-900) 11/19/20 16:44 Total Protein 5.4 g/dL (6.3-8.2) L 12/09/20 04:08 Albumin 1.4 g/dL (3.9-5) L 12/09/20 04:08 Albumin/Globulin Ratio 0.4 % 12/09/20 04:08 Amylase 52 units/L (27-131) 12/04/20 03:52 Lipase > 6000 units/L (13-60) H 12/02/20 22:38 Arterial Blood Glucose 104 mg/dL (65-95) H 11/28/20 17:47 Arterial Blood Ionized Calcium 4.5 mg/dL (4.6-5.3) L 11/28/20 17:47 Urine Color Yellow (Yellow) 12/01/20 18:45 Urine Turbidity Clear (Clear) 12/01/20 18:45 Urine pH 6.0 (5.0-7.0) 12/01/20 18:45 Ur Specific Mcdavid 1.036 (1.003-1.030) H 12/01/20 18:45 Urine Protein <15 mg/dl mg/dL (Negative) 12/01/20 18:45 Urine Glucose (UA) Neg mg/dL (Negative) 12/01/20 18:45 Urine Ketones Neg mg/dL (Negative) 12/01/20 18:45 Urine Blood Neg (Negative) 12/01/20 18:45 Urine Nitrite Neg (Negative) 12/01/20 18:45 Urine Bilirubin Neg (Negative) 12/01/20 18:45 Urine Urobilinogen < 2.0 mg/dL (<2.0) 12/01/20 18:45 Ur Leukocyte Esterase Tr (Negative) 12/01/20 18:45 Urine WBC (Auto) 3.0 /HPF (0.0-6.0) 12/01/20 18:45 Urine RBC (Auto) 1.0 /HPF (0.0-6.0) 12/01/20 18:45 U Epithel Cells (Auto) < 1.0 /HPF (0-13.0) 12/01/20 18:45 Urine Bacteria (Auto) 1+ /HPF (Negative) 11/19/20 19:18 Hyaline Casts 1 /LPF 11/19/20 19:18 Urine Mucus Few /HPF 12/01/20 18:45 Urine Creatinine 0.8 mg/dL (0.1-20.0) 12/02/20 22:38 Fluid Amylase 72818 12/02/20 22:38 Nasal Screen MRSA (PCR) Negative (Negative) 11/20/20 Unknown Urine Opiates Screen Negative 11/19/20 19:18 Urine Methadone Screen Negative 11/19/20 19:18 Ur Barbiturates Screen Negative 11/19/20 19:18 Ur Phencyclidine Scrn Negative 11/19/20 19:18 Ur Amphetamines Screen Negative 11/19/20 19:18 U Benzodiazepines Scrn Negative 11/19/20 19:18 Urine Cocaine Screen Negative 11/19/20 19:18 U Marijuana (THC) Screen Negative 11/19/20 19:18 Drugs of Abuse Note Disclamer 11/19/20 19:18 Coronavirus (PCR) Negative (Negative) 11/27/20 08:45 Blood Type O POSITIVE 11/30/20 15:00 Antibody Screen Negative 11/30/20 15:00 Crossmatch See Detail 11/30/20 15:00 Viramontes/IV: Voiding Method Condom Catheter Active Medications - Current Medications Current Medications: Generic Name Dose Route Start Last Admin Trade Name Freq PRN Reason Stop Dose Admin Acetaminophen 650 mg 11/20/20 14:00 12/08/20 23:51 Acetaminophen 325 Mg Tab PO 650 mg Q6H PRN Administration Pain, Mild (1-3) Albuterol 2.5 mg 11/30/20 12:00 Albuterol 2.5 Mg/3 Ml Nebu IH Q4HRT PRN Shortness Of Breath Bisacodyl 5 mg 12/04/20 18:45 Bisacodyl 5 Mg Tab PO QDAY PRN Constipation Folic Acid 1 mg 11/20/20 10:00 12/10/20 09:39 Folic Acid 1 Mg Tab PO 1 mg QDAY JANNETH Administration Hydralazine HCl 10 mg 11/19/20 18:18 Hydralazine 20 Mg/1 Ml Inj IV Q4HR PRN Hypertension Piperacillin Sod/Tazobactam Sod 4.5 gm in 100 mls @ 200 mls/hr 12/03/20 15:00 12/10/20 08:30 Zosyn/Ns 4.5gm/100ml IV 200 mls/hr Q6H JANNETH Administration Protocol Linezolid 600 mg 12/09/20 13:00 12/10/20 09:40 Linezolid 600 Mg Tab PO 12/13/20 22:01 600 mg Q12HR JANNETH Administration Protocol Lorazepam 2 mg 11/27/20 12:30 12/02/20 23:05 Lorazepam 2 Mg/Ml Vial IV 2 mg Q4H PRN Administration Agitation Losartan Potassium 100 mg 11/20/20 10:00 12/10/20 09:39 Losartan 50 Mg Tab PO 100 mg QDAY JANNETH Administration Metoprolol Tartrate 12.5 mg 11/28/20 22:00 12/10/20 09:42 Metoprolol Tartrate 25 Mg Tab PO Not Given BID [facility] Morphine Sulfate 2 mg 12/06/20 09:30 12/09/20 20:30 Morphine 2 Mg/1 Ml Inj IV 2 mg Q8H PRN Administration Pain, Moderate (4-6) Ondansetron HCl 4 mg 11/19/20 18:11 11/30/20 18:37 Ondansetron 4 Mg/2 Ml Inj IV 4 mg Q8H PRN Administration Nausea And Vomiting Oxycodone/Acetaminophen 1 tab 12/06/20 10:00 12/10/20 06:26 Oxycodone /Acetaminophen 5-325mg Tab PO 1 tab Q6H PRN Administration Pain, Moderate (4-6) Pantoprazole Sodium 40 mg 12/04/20 07:30 12/10/20 08:30 Pantoprazole 40 Mg Tab PO 40 mg QDAC JANNETH Administration Sodium Bicarbonate 1,300 mg 11/29/20 20:00 12/10/20 08:30 Sodium Bicarbonate 650 Mg Tab PO 1,300 mg TID JANNETH Administration Sodium Chloride 10 ml 11/19/20 22:00 12/10/20 09:40 Sodium Chloride 0.9% 10 Ml Flush Syringe IV 10 ml BID JANNETH Administration Sodium Chloride 10 ml 11/19/20 19:11 11/30/20 18:37 Sodium Chloride 0.9% 10 Ml Flush Syringe IV 10 ml PRN PRN Administration LINE FLUSH Nutrition/Malnutrition Assess - Dietary Evaluation Nutrition/Malnutrition Findings: Nutrition Notes Start: 11/20/20 12:00 Freq: Status: Active Protocol: Document 12/09/20 11:30 STEPHANIE (Rec: 12/09/20 11:34 [email or web address]) Nutrition Notes Initial or Follow up Reassessment Current Diagnosis Sepsis,Hypertension, Hyperlipidemia Other Pertinent Diagnosis Acute alcoholic pancreatitis, EtOH withdrawal delirium, ARF, GERD Current Diet Cardiac Labs/Tests Na 136 Pertinent Medications Folic acid Height 5 ft 10 in Weight 90.2 kg [place] Body Weight (kg) 75.45 BMI 28.5 Weight Status Overweight Subjective/Other Information FU for intakes. Unable to reach pt. Per RN, pt did not eat breakfast. He has one left over ONS from yesterday. Pt stated to RN he will drink 1 ONS for breakfast. Percent of energy/protein needs met: 17%/24% Burn Absent Trauma Absent Current % PO Negligible Minimum of two criteria No Energy Intake (severe) < or equal to 50% Estimated Energy Requirement > or equal to 5 days #2 Nutrition Diagnosis Inadequate oral intake Diagnosis Progress(for reassessment Continues documentation) Is patient on ventilator? No Is Patient Ambulatory and/or Out of Bed No REE-([place]-St Jeor-confined to bed) Calculation [facility] Additional Notes Pro needs 1-1.2g/k-98g/ day Fluid needs 1ml/kcal Nutrition Intervention Change Diet Order: Continue current diet as ordered Add Supplement/Snack (indicate name/kcal Ensure Enlive BID /protein ) Provides kCal: 700 Provides Protein (gm) 40 Goal #1 Meet at least 75% of energy and protein needs Anticipated Discharge Needs: CHO-controlled, low fat diet Follow-Up By: 12/12/20 Additional Comments F/U or intakes, ONS tolerance, new food prefrences
--- NOTE | 2020-12-10 12:59 | Progress Note ---
Assessment and Plan - Patient Problems (1) Intra-abdominal abscess Current Visit: Yes Status: Acute Plan to address problem: 1) Continue antibiotics per ID. 2) Drain removal per IR Subjective Date of service: 12/10/20 Patient Reports: Positive: no new complaints, feels better, pain is less Objective Vital Signs - 12hr 12/10/20 12/10/20 12/10/20 01:00 02:00 03:00 Temperature Pulse Rate 94 H 91 H 91 H Pulse Rate [ From Monitor] Respiratory 35 H 36 H 32 H Rate Blood Pressure 112/64 119/71 117/68 O2 Sat by Pulse 96 95 92 Oximetry 12/10/20 12/10/20 12/10/20 04:00 05:00 06:00 Temperature 99.2 F Pulse Rate 92 H 104 H 102 H Pulse Rate [ 90 From Monitor] Respiratory 35 H 30 H 38 H Rate Blood Pressure 124/76 127/81 112/75 O2 Sat by Pulse 95 97 95 Oximetry 12/10/20 12/10/20 12/10/20 06:26 07:00 08:00 Temperature 99.6 F Pulse Rate 93 H 99 H Pulse Rate [ From Monitor] Respiratory 36 H 29 H 29 H Rate Blood Pressure 120/67 109/69 O2 Sat by Pulse 92 94 Oximetry 12/10/20 12/10/20 09:39 09:42 Temperature Pulse Rate 104 H 101 H Pulse Rate [ From Monitor] Respiratory Rate Blood Pressure 105/64 105/64 O2 Sat by Pulse Oximetry - Abdomen soft, bowel sounds normal (NT) - Labs 12/09/20 04:08 12/09/20 04:08
--- NOTE | 2020-12-10 13:28 | Event Note ---
Significant decrease in volume from fluid collections. Ordered CT scan tomorrow with IV contrast of the abdomen and pelvis. Etiology is still highly probable from a ruptured right renal calyx spilling infected urine. No ureteral stent is in place. This makes drain removal complicated.
[2020-12-10] MEDS ORDERED: FUROSEMIDE 40 MG/4 ML INJ IV NR (15:33)
[2020-12-10] MEDS: MORPHINE 2 MG/1 ML INJ IV PRN (16:17)
[2020-12-11] MEDS: PIPERACIL/TAZOBACTA 4.5/NS 100 4.5 GM/100 ML VIAL IV SCH ×5 (03:40→22:15)
[2020-12-11] MEDS: oxyCODONE /ACETAMINOPHEN 5-325MG TAB PO PRN ×4 (04:49→22:15)
[2020-12-11] MEDS: MORPHINE 2 MG/1 ML INJ IV PRN (07:12)
[2020-12-11 08:26] LABS: Hematocrit 26.6 % (35.5-45.6); Hemoglobin 8.9 gm/dl (11.8-15.2); Mean Corpuscular HGB Conc 33 % (32-34); Mean Corpuscular Volume 78 fl (84-94); Platelet Count 647 K/mm3 (140-440); Red Blood Count 3.39 M/mm3 (3.65-5.03); Red Cell Distribution Width 19.6 % (13.2-15.2)
[2020-12-11 08:51] LABS: Blood Urea Nitrogen 5 mg/dL (9-20); Calcium 8.1 mg/dL (8.4-10.2); Hemolysis Index 13
[2020-12-11 08:56] LABS: BUN/Creatinine Ratio 10
--- NOTE | 2020-12-11 09:04 | Cat Scan Report ---
CT ABDOMEN AND PELVIS WITH CONTRAST HISTORY: reassess collections OMNI 300 100 ML. COMPARISON: 12/04/2020. TECHNIQUE: Helical CT images of the abdomen and pelvis were obtained following administration of intr avenous contrast. Sagittal and coronal reformatted images were reviewed. All CT scans at this [facility] are performed using CT dose reduction for ALARA by means of automated exposure control. CONTRAST: 100 ml of intravenous contrast administered. FINDINGS: Abdomen/pelvis: Multiple encapsulated abdominal fluid collections are again seen. A percutaneous fannie in has been placed in a left subdiaphragmatic fragment collection since the previous exam. This colle ction appears decreased in size by approximately 50%. Axial dimensions of the collection have decreas ed from 10.5 x 5.9 cm to 7.0 x 4.3 cm. A percutaneous drain has also been placed in the collection in the right posterior pararenal space. This collection has increased in size 1 cm to 3.8 cm in greates t thickness. There are a few smaller loculated fluid collections near the esophageal hiatus and the m edial left subdiaphragmatic space which appear relatively stable in size. Small to medium perisplenic fluid collections appear decreased by 10%. A collection along the right lateral abdominal wall is sl ightly increased from 3.8 x 2.2 cm to 5.1 x 3.0 cm. There is a small collection in the left lower aurora drant measuring 4.5 x 1.8 cm which appears unchanged. The liver, biliary system, and adrenal glands remain unremarkable. There are multiple small calcifica tions in the pancreatic head consistent with chronic pancreatitis. Scattered right renal cysts are un changed. The left kidney is unremarkable. There is no evidence for bowel obstruction or focal inflamm ation. Normal appendix. The bladder is unremarkable. Lungs/bones: Small to medium bilateral pleural effusions have decreased in size by 50%. There is per sistent bibasilar atelectatic changes. The bony structures are intact. Degenerative changes are noted in the lumbar spine. IMPRESSION: No overwhelming change is appreciated since 12/04/2020. Multiple encapsulated fluid collections are st ill seen in the abdomen some of which have increased in size and some decreased in size. One of the l argest collections in the left subdiaphragmatic fragment space containing a drain has decreased by ap proximately 50%. Another one of the largest collections in the right posterior pararenal space contai aliya a drain has increased in size by at least 50%. Smaller collections near the GE junction and galileo splenic region appear relatively stable. Mild improvement in bilateral pleural effusions and bibasilar atelectasis. Chronic pancreatitis findings. Signer Name: Patrick Kong Jr, MD Signed: 12/11/2020 8:59 AM Workstation Name: [id number]
--- NOTE | 2020-12-11 09:51 | Progress Note ---
Assessment and Plan Assessment and plan: 60-year-old -[place] male who presented to [facility] for acute pancreatitis has been diagnosed with multifocal fluid and gas collection in the right pararenal space secondary to right renal calyceal rupture and urinary leak. --Sepsis/secondary right renal calyceal rupture Current Visit: No Status: Acute Urology following, recommended placement of drains General surgery following Infectious disease following Large multifocal fluid and gas collections in the right pararenal space: etiology is suspected R renal calyceal rupture causing urinary leak. Underwent IR drainage 12/02/2020 with about 500 cc of pinkish material drained. Additional CT-guided placement of 8 Portuguese drainage catheter in left upper quadrant fluid collection with 180 mL of purulent urine aspirated on 12/05/2020. Surgical culture showing E. coli Urine culture showing E. coli, VRE Patient placed on Zyvox, Zosyn antibiotics Repeat CT on 12/11/2020 shows persistent fluid collections in the above regions. --Subcapsular splenic collection: new, etiology unclear, possibly related to right renal calyx rupture --Mild pleural effusions Lasix --Hypernatremia Resolved --Alcohol withdrawal delirium Current Visit: No Status: Acute Currently on CIWA protocol No signs of withdrawal --Acute /chronic pancreatitis/alcohol related Current Visit: No Status: Acute Currently tolerating diet, no abdominal pain --Acute kidney injury; Current Visit: Yes Status: Acute Resolved --Hypertension Current Visit: No Status: Chronic Patient somewhat hypotensive. Metoprolol 12.5 mg twice daily hydralazine 10 mg IV every 4 hours as needed . --Nicotine dependence Current Visit: No Status: Chronic Smoking cessation counseling Nicotine patch as needed --VRE UTI/E. coli Current Visit: No Status: Acute Zosyn --Severe protein calorie malnutrition Current Visit: No Status: Acute Hypoalbuminemia , albumin 2.8 Nutrition supplements, nutrition consult and supportive care -- Metabolic acidosis Current Visit: Yes Status: Acute Plan to address problem: Secondary to uremia as well as chronic pancreatitis treat underlying etiology. Resolved DVT prophylaxis: Heparin CODE STATUS: Full Disposition: Continue treatment for intra-abdominal infection. Repeat CT scan shows persistent fluid collection, drains may need to be readjusted for continued drainage. History Interval history: 60-year-old male patient was admitted with alcohol withdrawal symptoms On CIWA protocol patient has E. coli UTI completed treatment with antibiotics COVID-19 test is negative, waiting for placement however on 12/01/2020 Patient developed sudden abdominal pain, CT scan showed multiple loculated collections, sepsis IR Dr. Dugan, urology disposition Home and ID Dr. Garcia was consulted, IR is planning CT-guided aspiration Try to contact daughter Huong Hua, unable to reach left a message and requested to call back 11/20/2020; patient feels slightly better, no significant withdrawal symptoms Patient is on CIWA protocol, stable to be transferred out of IMCU to medical floor 11/21/2020; patient has severe agitation tremulousness, patient is on CIWA protocol Closely monitor withdrawal symptoms, adjust the medications as needed in the morning equal in both upper Advance diet to regular as tolerated. I called patient's mother and also patient's daughter Ms. Huong Hua at [phone] 11/22/2020; Patient continues to be agitated confused mumbling, On CIWA protocol, restraint for safety. E. coli UTI on Zosyn Called again patient's daughter next of kin Ms. Huong Hua at [phone][number obtained from telehealth case manager Ms. Vo] Did not pickling operator the phone I left a voicemail again today to discuss about Mr. Parada's condition and treatment plan 11/23/2020 Patient continues to be agitated Resumed service 11/26/2020; Patient still has mild alcohol withdrawal symptoms Restraints for safety 11/27/2020; Patient is off CIWA protocol and restraints PT OT evaluated, PT recommending subacute rehab 11/28/2020; today patient has some mild shortness of breath and wheezing Tachycardia heart rate in 100 -110 , alert awake oriented x3 Possible fluid overload, give 1 dose of Lasix IV, checks chest x-ray 11/29/2020; patient is more alert and awake, no shortness of breath No alcohol withdrawal symptoms, pending subacute rehab placemen 11/30/2020; Anemia patient's hemoglobin dropped to 6.9, transfuse 1 unit PRBC Stool for occult blood, GI consult if needed 12/01/2020; stool guaiac negative Hb improved to 8.1, complains of some abdominal pain and discomfort Will check CT abdomen and pelvis Pending placement IAdvised to quit alcohol intake CT abdomen and pelvis multifocal fluid collection IR/urology/ID were consulted, started antibiotics IR recommend CT-guided drainage 12/02/2020; CT-guided drainage pain, tried to contact and next of kin daughter Ms. Huong Hua at [phone][number obtained from telehealth case manager Ms. Vo] Did not pickling operator the phone, left message to call back 12/03/2020; patient feels slightly better CT-guided drain placement yesterday per IR ID changed antibiotics to Zosyn Reevaluation by PT, recommend subacute rehab DC planning per case management We will discharge to subacute rehab when medically stable 12/04/2020; follow-up CT abdomen and pelvis 12/04/2020 Findings as above, persistent fluid collections in multiple areas 12/05/2020; CT-guided placement of abdominal drainage catheter for right perinephrotic calyceal rupture and intra-abdominal stranding of infected urine. Patient tolerated the procedure well Continue postoperative care All the consultants and recommendations noted and appreciated 12/06/2020; patient feels slightly better, has 2 drains into the pocket intra- abdominal fluid collection Draining well, IR, surgery, ID following 12/07/2020; patient feels slightly better, has 2 drains into the pocket intra- abdominal fluid collection 12/08/20 patient feels slightly better, has 2 drains into the pocket intra-abdominal fluid collection Draining well, IR, surgery, ID following 12/09/20 patient feels slightly better, has 2 drains into the pocket intra-abdominal fluid collection Draining well, IR, surgery, ID following 12/10/2020: Patient seen and examined, states that he is improved, does have some crackles in his lungs, somewhat difficult to breathe. No fevers or chills overnight. Continues on antibiotics. . 12/11/2020: Patient seen and examined, states that his breathing is improved somewhat. Start patient on Lasix. CT of abdomen reviewed, fluid collections persist. Hospitalist Physical - Physical exam Narrative exam: General appearance: no acute distress, well-nourished EENT: PERRL, EOM intact, hearing intact, clear oral mucosa, poor dentition Neck: Present: supple, normal ROM Respiratory: Bilateral crackles and rales heard lower lung wiggins, no wheezes heard Cardiovascular: Regular rate/rhythm, Normal S1 & S2. No gallop, rub Extremities: no ischemia, No edema, normal temperature, normal color, Full ROM Abdominal: Abdominal drain, right flank drain, soft, no tenderness, non-di stended, normal bowel sounds Integumentary: Present: clear, warm, dry no wounds, no erythema noted Psychiatric: appropriate mood/affect, intact judgment & insight Neurologic: CNII-XII intact, moves all extremities, no sensory or motor abnormalities - Constitutional Vitals: Temp Pulse Resp BP Pulse Ox 99.7 F H 105 H 20 103/62 97 12/10/20 20:00 12/11/20 04:00 12/11/20 07:12 12/10/20 22:00 12/10/20 22:00 General appearance: Present: no acute distress, well-nourished HEART Score - HEART Score Troponin: Troponin T < 0.010 ng/mL (0.00-0.029) 11/19/20 22:51 Results - Labs CBC & Chem 7: 12/11/20 07:51 12/11/20 07:51 Labs: Laboratory Last Values WBC 14.7 K/mm3 (4.5-11.0) H 12/11/20 07:51 RBC 3.39 M/mm3 (3.65-5.03) L 12/11/20 07:51 Hgb 8.9 gm/dl (11.8-15.2) L 12/11/20 07:51 Hct 26.6 % (35.5-45.6) L 12/11/20 07:51 MCV 78 fl (84-94) L 12/11/20 07:51 MCH 26 pg (28-32) L 12/11/20 07:51 MCHC 33 % (32-34) 12/11/20 07:51 RDW 19.6 % (13.2-15.2) H 12/11/20 07:51 Plt Count 647 K/mm3 (140-440) H 12/11/20 07:51 Lymph % (Auto) 11.8 % (13.4-35.0) L 12/09/20 04:08 [place] % (Auto) 10.8 % (0.0-7.3) H 12/09/20 04:08 Eos % (Auto) 0.3 % (0.0-4.3) 12/09/20 04:08 Baso % (Auto) 0.6 % (0.0-1.8) 12/09/20 04:08 Lymph # (Auto) 1.6 K/mm3 (1.2-5.4) 12/09/20 04:08 [place] # (Auto) 1.4 K/mm3 (0.0-0.8) H 12/09/20 04:08 Eos # (Auto) 0.0 K/mm3 (0.0-0.4) 12/09/20 04:08 Baso # (Auto) 0.1 K/mm3 (0.0-0.1) 12/09/20 04:08 Add Manual Diff Complete 12/08/20 09:39 Total Counted 100 12/08/20 09:39 Seg Neutrophils % 76.5 % (40.0-70.0) H 12/09/20 04:08 Seg Neuts % (Manual) 73.0 % (40.0-70.0) H 12/08/20 09:39 Band Neutrophils % 2.0 % 12/08/20 09:39 Lymphocytes % (Manual) 16.0 % (13.4-35.0) 12/08/20 09:39 Reactive Lymphs % (Man) 1.0 % 12/07/20 05:49 Monocytes % (Manual) 9.0 % (0.0-7.3) H 12/08/20 09:39 Eosinophils % (Manual) 1.0 % (0.0-4.3) 12/04/20 19:01 Metamyelocytes % 3.0 % 12/07/20 05:49 Myelocytes % 2.0 % 12/02/20 07:01 Nucleated RBC % Not Reportable 12/08/20 09:39 Seg Neutrophils # 10.0 K/mm3 (1.8-7.7) H 12/09/20 04:08 Seg Neutrophils # Man 9.9 K/mm3 (1.8-7.7) H 12/08/20 09:39 Band Neutrophils # 0.3 K/mm3 12/08/20 09:39 Lymphocytes # (Manual) 2.2 K/mm3 (1.2-5.4) 12/08/20 09:39 Abs React Lymphs (Man) 0.0 K/mm3 12/08/20 09:39 Monocytes # (Manual) 1.2 K/mm3 (0.0-0.8) H 12/08/20 09:39 Eosinophils # (Manual) 0.0 K/mm3 (0.0-0.4) 12/08/20 09:39 Basophils # (Manual) 0.0 K/mm3 (0.0-0.1) 12/08/20 09:39 Metamyelocytes # 0.0 K/mm3 12/08/20 09:39 Myelocytes # 0.0 K/mm3 12/08/20 09:39 Promyelocytes # 0.0 K/mm3 12/08/20 09:39 Blast Cells # 0.0 K/mm3 12/08/20 09:39 WBC Morphology Not Reportable 12/08/20 09:39 WBC Morphology TNR 12/08/20 09:39 Hypersegmented Neuts Not Reportable 12/08/20 09:39 Hyposegmented Neuts Not Reportable 12/08/20 09:39 Hypogranular Neuts Not Reportable 12/08/20 09:39 Smudge Cells Not Reportable 12/08/20 09:39 Toxic Granulation Not Reportable 12/08/20 09:39 Toxic Vacuolation Not Reportable 12/08/20 09:39 Dohle Bodies Not Reportable 12/08/20 09:39 Pelger-Huet Anomaly Not Reportable 12/08/20 09:39 Aiden Rods Not Reportable 12/08/20 09:39 Platelet Estimate Not Reportable 12/08/20 09:39 Clumped Platelets Not Reportable 12/08/20 09:39 Plt Clumps, EDTA Not Reportable 12/08/20 09:39 Large Platelets Not Reportable 12/08/20 09:39 Giant Platelets Not Reportable 12/08/20 09:39 Platelet Satelliting Not Reportable 12/08/20 09:39 Plt Morphology Comment Not Reportable 12/08/20 09:39 RBC Morphology Not Reportable 12/08/20 09:39 Dimorphic RBCs Not Reportable 12/08/20 09:39 Polychromasia Not Reportable 12/08/20 09:39 Hypochromasia Not Reportable 12/08/20 09:39 Poikilocytosis Not Reportable 12/08/20 09:39 Anisocytosis 1+ 12/08/20 09:39 Microcytosis Not Reportable 12/08/20 09:39 Macrocytosis Not Reportable 12/08/20 09:39 Spherocytes Not Reportable 12/08/20 09:39 Pappenheimer Bodies Not Reportable 12/08/20 09:39 Sickle Cells Not Reportable 12/08/20 09:39 Target Cells Not Reportable 12/08/20 09:39 Tear Drop Cells Not Reportable 12/08/20 09:39 Ovalocytes Not Reportable 12/08/20 09:39 Stomatocytes Few 12/04/20 19:01 Helmet Cells Not Reportable 12/08/20 09:39 [place] Bodies Not Reportable 12/08/20 09:39 [place] Rings Not Reportable 12/08/20 09:39 [place] Cells Not Reportable 12/08/20 09:39 Bite Cells Not Reportable 12/08/20 09:39 Crenated Cell Not Reportable 12/08/20 09:39 Elliptocytes Not Reportable 12/08/20 09:39 Acanthocytes (Spur) Not Reportable 12/08/20 09:39 Rouleaux Not Reportable 12/08/20 09:39 Hemoglobin C Crystals Not Reportable 12/08/20 09:39 Schistocytes Not Reportable 12/08/20 09:39 Malaria parasites Not Reportable 12/08/20 09:39 Florin Bodies Not Reportable 12/08/20 09:39 Hem Pathologist Commnt No 12/08/20 09:39 PT 15.8 Sec. (12.2-14.9) H 12/01/20 05:53 INR 1.21 (0.87-1.13) H 12/01/20 05:53 APTT 33.7 Sec. (24.2-36.6) 12/01/20 05:53 D-Dimer 1767.06 ng/mlDDU (0-234) H 11/19/20 16:44 ABG pH 7.454 (7.320-7.450) H 11/28/20 17:47 POC ABG pCO2 25.8 mmHg (32.0-48.0) L 11/28/20 17:47 POC ABG pO2 65.5 mmHg (83-108) L 11/28/20 17:47 POC ABG HCO3 17.7 11/28/20 17:47 ABG O2 Saturation 94.3 (0-100) 11/28/20 17:47 POC ABG Base Excess -5.5 11/28/20 17:47 ABG Hemoglobin 7.0 (12.0-17.5) L 11/28/20 17:47 ABG Oxyhemoglobin 92.2 (94-98) L 11/28/20 17:47 ABG Methemoglobin 0.3 (0.0-1.5) 11/28/20 17:47 ABG Sodium 143.6 mmol/L (136.0-145.0) 11/28/20 17:47 ABG Potassium 3.6 mmol/L (3.40-4.50) 11/28/20 17:47 ABG Chloride 117.0 mmol/L (98-107) H 11/28/20 17:47 ABG Glucose 104 mg/dL (65-95) H 11/28/20 17:47 Carboxyhemoglobin 1.9 (0.5-1.5) H 11/28/20 17:47 FiO2 % 21.0 11/28/20 17:47 Sodium 136 mmol/L (137-145) L 12/11/20 07:51 Potassium 3.9 mmol/L (3.6-5.0) 12/11/20 07:51 Chloride 100.0 mmol/L (98-107) 12/11/20 07:51 Carbon Dioxide 27 mmol/L (22-30) 12/11/20 07:51 Anion Gap 13 mmol/L 12/11/20 07:51 BUN 5 mg/dL (9-20) L 12/11/20 07:51 Creatinine 0.5 mg/dL (0.8-1.3) L 12/11/20 07:51 Estimated GFR > 60 ml/min 12/11/20 07:51 BUN/Creatinine Ratio 10 % 12/11/20 07:51 Glucose 86 mg/dL (75-100) 12/11/20 07:51 POC Glucose 90 mg/dL (70-105) 12/10/20 17:10 Lactic Acid 3.10 mmol/L (0.7-2.0) H* 11/19/20 18:28 Calcium 8.1 mg/dL (8.4-10.2) L 12/11/20 07:51 Phosphorus 2.60 mg/dL (2.5-4.5) 12/07/20 05:49 Magnesium 1.40 mg/dL (1.7-2.3) L 12/07/20 05:49 Total Bilirubin 0.40 mg/dL (0.1-1.2) 12/09/20 04:08 Direct Bilirubin 0.2 mg/dL (0-0.2) 11/19/20 16:44 Indirect Bilirubin 0.3 mg/dL 11/19/20 16:44 AST 12 units/L (5-40) 12/09/20 04:08 ALT < 5 units/L (7-56) L 12/09/20 04:08 Alkaline Phosphatase 111 units/L (35-129) 12/09/20 04:08 Total Creatine Kinase 26 units/L (55-170) L 11/19/20 16:44 CK-MB (CK-2) < 1.0 ng/mL (0.0-4.0) 11/19/20 16:44 CK-MB (CK-2) Rel Index 3.8 (0-4) 11/19/20 16:44 Troponin T < 0.010 ng/mL (0.00-0.029) 11/19/20 22:51 NT-Pro-B Natriuret Pep 454.0 pg/mL (0-900) 11/19/20 16:44 Total Protein 5.4 g/dL (6.3-8.2) L 12/09/20 04:08 Albumin 1.4 g/dL (3.9-5) L 12/09/20 04:08 Albumin/Globulin Ratio 0.4 % 12/09/20 04:08 Amylase 52 units/L (27-131) 12/04/20 03:52 Lipase > 6000 units/L (13-60) H 12/02/20 22:38 Arterial Blood Glucose 104 mg/dL (65-95) H 11/28/20 17:47 Arterial Blood Ionized Calcium 4.5 mg/dL (4.6-5.3) L 11/28/20 17:47 Urine Color Yellow (Yellow) 12/01/20 18:45 Urine Turbidity Clear (Clear) 12/01/20 18:45 Urine pH 6.0 (5.0-7.0) 12/01/20 18:45 Ur Specific Iva 1.036 (1.003-1.030) H 12/01/20 18:45 Urine Protein <15 mg/dl mg/dL (Negative) 12/01/20 18:45 Urine Glucose (UA) Neg mg/dL (Negative) 12/01/20 18:45 Urine Ketones Neg mg/dL (Negative) 12/01/20 18:45 Urine Blood Neg (Negative) 12/01/20 18:45 Urine Nitrite Neg (Negative) 12/01/20 18:45 Urine Bilirubin Neg (Negative) 12/01/20 18:45 Urine Urobilinogen < 2.0 mg/dL (<2.0) 12/01/20 18:45 Ur Leukocyte Esterase Tr (Negative) 12/01/20 18:45 Urine WBC (Auto) 3.0 /HPF (0.0-6.0) 12/01/20 18:45 Urine RBC (Auto) 1.0 /HPF (0.0-6.0) 12/01/20 18:45 U Epithel Cells (Auto) < 1.0 /HPF (0-13.0) 12/01/20 18:45 Urine Bacteria (Auto) 1+ /HPF (Negative) 11/19/20 19:18 Hyaline Casts 1 /LPF 11/19/20 19:18 Urine Mucus Few /HPF 12/01/20 18:45 Urine Creatinine 0.8 mg/dL (0.1-20.0) 12/02/20 22:38 Fluid Amylase 21627 12/02/20 22:38 Nasal Screen MRSA (PCR) Negative (Negative) 11/20/20 Unknown Urine Opiates Screen Negative 11/19/20 19:18 Urine Methadone Screen Negative 11/19/20 19:18 Ur Barbiturates Screen Negative 11/19/20 19:18 Ur Phencyclidine Scrn Negative 11/19/20 19:18 Ur Amphetamines Screen Negative 11/19/20 19:18 U Benzodiazepines Scrn Negative 11/19/20 19:18 Urine Cocaine Screen Negative 11/19/20 19:18 U Marijuana (THC) Screen Negative 11/19/20 19:18 Drugs of Abuse Note Disclamer 11/19/20 19:18 Coronavirus (PCR) Negative (Negative) 11/27/20 08:45 Blood Type O POSITIVE 11/30/20 15:00 Antibody Screen Negative 11/30/20 15:00 Crossmatch See Detail 11/30/20 15:00 Microbiology: Microbiology 12/05/20 Unknown Abdomen Surgical Culture - Final Escherichia Coli Viramontes/IV: Voiding Method Condom Catheter Active Medications - Current Medications Current Medications: Generic Name Dose Route Start Last Admin Trade Name Freq PRN Reason Stop Dose Admin Acetaminophen 650 mg 11/20/20 14:00 12/08/20 23:51 Acetaminophen 325 Mg Tab PO 650 mg Q6H PRN Administration Pain, Mild (1-3) Albuterol 2.5 mg 11/30/20 12:00 Albuterol 2.5 Mg/3 Ml Nebu IH Q4HRT PRN Shortness Of Breath Bisacodyl 5 mg 12/04/20 18:45 Bisacodyl 5 Mg Tab PO QDAY PRN Constipation Folic Acid 1 mg 11/20/20 10:00 12/10/20 09:39 Folic Acid 1 Mg Tab PO 1 mg QDAY JANNETH Administration Hydralazine HCl 10 mg 11/19/20 18:18 Hydralazine 20 Mg/1 Ml Inj IV Q4HR PRN Hypertension Piperacillin Sod/Tazobactam Sod 4.5 gm in 100 mls @ 200 mls/hr 12/03/20 15:00 12/11/20 03:40 Zosyn/Ns 4.5gm/100ml IV 200 mls/hr Q6H JANNETH Administration Protocol Linezolid 600 mg 12/09/20 13:00 12/10/20 21:52 Linezolid 600 Mg Tab PO 12/13/20 22:01 600 mg Q12HR JANNETH Administration Protocol Lorazepam 2 mg 11/27/20 12:30 12/02/20 23:05 Lorazepam 2 Mg/Ml Vial IV 2 mg Q4H PRN Administration Agitation Losartan Potassium 100 mg 11/20/20 10:00 12/10/20 09:39 Losartan 50 Mg Tab PO 100 mg QDAY JANNETH Administration Metoprolol Tartrate 12.5 mg 11/28/20 22:00 12/10/20 21:51 Metoprolol Tartrate 25 Mg Tab PO Not Given BID JANNETH Morphine Sulfate 2 mg 12/06/20 09:30 12/11/20 07:12 Morphine 2 Mg/1 Ml Inj IV 2 mg Q8H PRN Administration Pain, Moderate (4-6) Ondansetron HCl 4 mg 11/19/20 18:11 11/30/20 18:37 Ondansetron 4 Mg/2 Ml Inj IV 4 mg Q8H PRN Administration Nausea And Vomiting Oxycodone/Acetaminophen 1 tab 12/06/20 10:00 12/11/20 04:49 Oxycodone /Acetaminophen 5-325mg Tab PO 1 tab Q6H PRN Administration Pain, Moderate (4-6) Pantoprazole Sodium 40 mg 12/04/20 07:30 12/10/20 08:30 Pantoprazole 40 Mg Tab PO 40 mg QDAC JANNETH Administration Sodium Bicarbonate 1,300 mg 11/29/20 20:00 12/10/20 19:57 Sodium Bicarbonate 650 Mg Tab PO 1,300 mg TID JANNETH Administration Sodium Chloride 10 ml 11/19/20 22:00 12/10/20 21:51 Sodium Chloride 0.9% 10 Ml Flush Syringe IV 10 ml BID JANNETH Administration Sodium Chloride 10 ml 11/19/20 19:11 11/30/20 18:37 Sodium Chloride 0.9% 10 Ml Flush Syringe IV 10 ml PRN PRN Administration LINE FLUSH Nutrition/Malnutrition Assess - Dietary Evaluation Nutrition/Malnutrition Findings: Nutrition Notes Start: 11/20/20 12:00 Freq: Status: Active Protocol: Document 12/09/20 11:30 (Rec: 12/09/20 11:34 [email or web address]) Nutrition Notes Initial or Follow up Reassessment Current Diagnosis Sepsis,Hypertension, Hyperlipidemia Other Pertinent Diagnosis Acute alcoholic pancreatitis, EtOH withdrawal delirium, ARF, GERD Current Diet Cardiac Labs/Tests Na 136 Pertinent Medications Folic acid Height 5 ft 10 in Weight 90.2 kg [place] Body Weight (kg) 75.45 BMI 28.5 Weight Status Overweight Subjective/Other Information FU for intakes. Unable to reach pt. Per RN, pt did not eat breakfast. He has one left over ONS from yesterday. Pt stated to RN he will drink 1 ONS for breakfast. Percent of energy/protein needs met: 17%/24% Burn Absent Trauma Absent Current % PO Negligible Minimum of two criteria No Energy Intake (severe) < or equal to 50% Estimated Energy Requirement > or equal to 5 days #2 Nutrition Diagnosis Inadequate oral intake Diagnosis Progress(for reassessment Continues documentation) Is patient on ventilator? No Is Patient Ambulatory and/or Out of Bed No REE-([place]-confined to bed) 5.290 Calculation Used for Recommendations [place] Additional Notes Pro needs 1-1.2g/k-98g/ day Fluid needs 1ml/kcal Nutrition Intervention Change Diet Order: Continue current diet as ordered Add Supplement/Snack (indicate name/kcal Ensure Enlive BID /protein ) Provides kCal: 700 Provides Protein (gm) 40 Goal #1 Meet at least 75% of energy and protein needs Anticipated Discharge Needs: CHO-controlled, low fat diet Follow-Up By: 12/12/20 Additional Comments F/U or intakes, ONS tolerance, new food prefrences
[2020-12-11] MEDS: METOPROLOL TARTRATE 25 MG TAB PO SCH ×2 (10:08→22:16)
[2020-12-11] MEDS: PANTOPRAZOLE 40 MG TAB PO SCH (10:08)
[2020-12-11] MEDS: FOLIC ACID 1 MG TAB PO SCH (10:08)
[2020-12-11] MEDS: SODIUM BICARBONATE 650 MG TAB PO SCH ×3 (10:08→22:15)
[2020-12-11] MEDS: LOSARTAN 50 MG TAB PO SCH (10:09)
[2020-12-11] MEDS: LINEZOLID 600 MG TAB PO SCH ×2 (10:10→22:16)
--- NOTE | 2020-12-11 11:23 | Progress Note ---
Assessment and Plan Cultures: 11/27/2020 COVID-19 PCR: Negative 11/19/2020 blood culture: No growth 11/19/2020 urine culture: E. coli 12/01/2020 blood culture: No growth 12/01/2020 urine culture: Enterococcus faecium (VRE) 12/02/2020 IR drainage culture: E.coli 12/05/2020 LUQ drainage cultures: E.coli A/P: 60-year-old male with gastroesophageal reflux disease, hypertension, hyperlipidemia, alcohol abuse admitted to the hospital on 11/19/2020 with abdominal pain from suspected pancreatitis and alcohol withdrawal: #Sepsis: Source: large multifocal fluid and gas collections in the right parar enal space. #Large multifocal fluid and gas collections in the right pararenal space: etiology is suspected R renal calyceal rupture causing urinary leak. Urology and IR following. Underwent IR drainage 12/02/2020 with about 500 cc of pinkish material drained. Additional CT-guided placement of 8 [place] drainage catheter in left upper quadrant fluid collection with 180 mL of purulent urine aspirated on 12/05/2020. Repeat CT on 12/11/2020 with multiple encapsulated fluid collections, some decreased while some increased. #Subcapsular splenic collection: new, etiology unclear, likely related to above. #Acute alcohol withdrawal, chronic alcohol abuse #JOHN: Resolved #Prior UTI: s/p abx. Recs: -Continue Zosyn, D9 -PO Zyvox 600 mg BID, D2 of 5 -management of drains and need for additional drainage per IR, f/u urology plan regarding suspected ruptured calyx Abdulkadir Helton MD, FACP [facility] O: [phone] F: [phone] Subjective Date of service: 12/11/20 Principal diagnosis: Sepsis Interval history: Low grade temp, no fever as such. Drains in place. Had CT done. Says he hasn't been eating much. Objective - Exam Narrative Exam: Physical Exam: Constitutional: awake, alert Head, Ears, Nose: Normocephalic, atraumatic. External ears, nose normal Eyes: Conjunctivae/corneas clear. No icterus. No ptosis. Neck: Supple, no meningeal signs Cardiovascular: S1, S2 normal. Respiratory: Good air entry, clear to auscultation bilaterally GI: R sided drain +. bowel sounds +. Left sided drain +, both drains with purulent output Musculoskeletal: No pedal edema, no cyanosis. Skin: No rash or abscess Hem/Lymphatic: No palpable cervical or supraclavicular nodes. No lymphangitis Psych: calm, no agitation Neurological: Awake, alert - Constitutional Vitals: Vital Signs Temp Pulse Resp BP Pulse Ox 99.7 F H 103 H 20 102/69 97 12/10/20 20:00 12/11/20 10:09 12/11/20 07:12 12/11/20 10:09 12/10/20 22:00 Temperature -Last 24 Hours Temperature 99.7 F Temperature 99.4 F Temperature 99.4 F - Labs CBC & Chem 7: 12/11/20 07:51 12/11/20 07:51 Labs: Abnormal lab results 12/11/20 12/11/20 Range/Units 07:51 07:51 WBC 14.7 H (4.5-11.0) K/mm3 RBC 3.39 L (3.65-5.03) M/mm3 Hgb 8.9 L (11.8-15.2) gm/dl Hct 26.6 L (35.5-45.6) % MCV 78 L (84-94) fl MCH 26 L (28-32) pg RDW 19.6 H (13.2-15.2) % Plt Count 647 H (140-440) K/mm3 Sodium 136 L (137-145) mmol/L BUN 5 L (9-20) mg/dL Creatinine 0.5 L (0.8-1.3) mg/dL Calcium 8.1 L (8.4-10.2) mg/dL
--- NOTE | 2020-12-11 13:22 | Progress Note ---
Assessment and Plan - Patient Problems (1) Intra-abdominal abscess Current Visit: Yes Status: Acute Plan to address problem: 1) Improving 2) Antibiotics per ID 3) Drain removal per IR 4) I have nothing further to add and will therefore sign off. Subjective Date of service: 12/11/20 Patient Reports: Positive: no new complaints, feels better (C/o mild "soreness" in LUQ.), pain is less Objective Vital Signs - 12hr 12/11/20 12/11/20 12/11/20 04:00 04:49 05:49 Temperature Pulse Rate 105 H Respiratory 18 18 Rate Blood Pressure O2 Sat by Pulse Oximetry 12/11/20 12/11/20 12/11/20 07:12 10:08 10:09 Temperature Pulse Rate 103 H 103 H Respiratory 20 Rate Blood Pressure 102/69 O2 Sat by Pulse Oximetry 12/11/20 11:00 Temperature 98.3 F Pulse Rate 102 H Respiratory 18 Rate Blood Pressure 97/62 O2 Sat by Pulse 96 Oximetry - Abdomen soft, bowel sounds normal (NT, ND) - Labs 12/11/20 07:51 12/11/20 07:51 Diabetes panel 12/11/20 Range/Units 07:51 Sodium 136 L (137-145) mmol/L Potassium 3.9 (3.6-5.0) mmol/L Chloride 100.0 (98-107) mmol/L Carbon Dioxide 27 (22-30) mmol/L BUN 5 L (9-20) mg/dL Creatinine 0.5 L (0.8-1.3) mg/dL Glucose 86 (75-100) mg/dL Calcium 8.1 L (8.4-10.2) mg/dL Calcium panel 12/11/20 Range/Units 07:51 Calcium 8.1 L (8.4-10.2) mg/dL Pituitary panel 12/11/20 Range/Units 07:51 Sodium 136 L (137-145) mmol/L Potassium 3.9 (3.6-5.0) mmol/L Chloride 100.0 (98-107) mmol/L Carbon Dioxide 27 (22-30) mmol/L BUN 5 L (9-20) mg/dL Creatinine 0.5 L (0.8-1.3) mg/dL Glucose 86 (75-100) mg/dL Calcium 8.1 L (8.4-10.2) mg/dL Adrenal panel 12/11/20 Range/Units 07:51 Sodium 136 L (137-145) mmol/L Potassium 3.9 (3.6-5.0) mmol/L Chloride 100.0 (98-107) mmol/L Carbon Dioxide 27 (22-30) mmol/L BUN 5 L (9-20) mg/dL Creatinine 0.5 L (0.8-1.3) mg/dL Glucose 86 (75-100) mg/dL Calcium 8.1 L (8.4-10.2) mg/dL
[2020-12-11] MEDS: FUROSEMIDE 40 MG/4 ML INJ IV SCH (14:17)
--- NOTE | 2020-12-11 15:58 | Event Note ---
Date: 12/11/20 CT scan was discordant with significant decrease in volume. Suspect that the accordion of the drain was not being compressed and therefore not drained. I discussed this with the nurse caring for the patient. If there is still low amount of drainage, drains may need to be exchanged. No ureteral stent in place. Differential is infected pseudocyst from pancreas vs ruptured right renal calyx. Body fluid sent out for results are not available.
[2020-12-12] MEDS: PIPERACIL/TAZOBACTA 4.5/NS 100 4.5 GM/100 ML VIAL IV SCH ×4 (04:35→22:33)
[2020-12-12] MEDS: oxyCODONE /ACETAMINOPHEN 5-325MG TAB PO PRN ×2 (04:35→14:35)
[2020-12-12 07:56] LABS: Hematocrit 22.1 % (35.5-45.6); Hemoglobin 7.4 gm/dl (11.8-15.2); Mean Corpuscular HGB Conc 34 % (32-34); Mean Corpuscular Volume 78 fl (84-94); Platelet Count 587 K/mm3 (140-440); Red Blood Count 2.84 M/mm3 (3.65-5.03); Red Cell Distribution Width 19.4 % (13.2-15.2)
[2020-12-12] MEDS: SODIUM BICARBONATE 650 MG TAB PO SCH ×3 (08:00→22:32)
[2020-12-12 08:13] LABS: Blood Urea Nitrogen 6 mg/dL (9-20); Calcium 8.1 mg/dL (8.4-10.2)
[2020-12-12 08:28] LABS: BUN/Creatinine Ratio 10
[2020-12-12] MEDS: PANTOPRAZOLE 40 MG TAB PO SCH (10:23)
[2020-12-12] MEDS: LINEZOLID 600 MG TAB PO SCH ×2 (10:28→22:38)
[2020-12-12] MEDS: FOLIC ACID 1 MG TAB PO SCH (10:29)
[2020-12-12] MEDS: FUROSEMIDE 40 MG/4 ML INJ IV SCH (10:29)
[2020-12-12] MEDS: LOSARTAN 50 MG TAB PO SCH (10:32)
[2020-12-12] MEDS: METOPROLOL TARTRATE 25 MG TAB PO SCH ×2 (10:33→22:32)
--- NOTE | 2020-12-12 11:56 | Progress Note ---
Assessment and Plan Cultures: 11/27/2020 COVID-19 PCR: Negative 11/19/2020 blood culture: No growth 11/19/2020 urine culture: E. coli 12/01/2020 blood culture: No growth 12/01/2020 urine culture: Enterococcus faecium (VRE) 12/02/2020 IR drainage culture: E.coli 12/05/2020 LUQ drainage cultures: E.coli A/P: 60-year-old male with gastroesophageal reflux disease, hypertension, hyperlipidemia, alcohol abuse admitted to the hospital on 11/19/2020 with abdominal pain from suspected pancreatitis and alcohol withdrawal: #Sepsis: Source: large multifocal fluid and gas collections in the right parar enal space. #Large multifocal fluid and gas collections in the right pararenal space: etiology is suspected R renal calyceal rupture causing urinary leak v/s infected pancreatic pseudocyst. Urology evaluated and IR following. Underwent IR drainage 12/02/2020 with about 500 cc of pinkish material drained. Additional CT-guided placement of 8 German drainage catheter in left upper quadrant fluid collection with 180 mL of purulent urine aspirated on 12/05/2020. Repeat CT on 12/11/2020 with multiple encapsulated fluid collections, some decreased while some increased. #Subcapsular splenic collection: new, etiology unclear, likely related to above. #Acute alcohol withdrawal, chronic alcohol abuse #JOHN: Resolved #Prior UTI: s/p abx. Recs: -Continue Zosyn, D10 -PO Zyvox 600 mg BID, D3 of 5 -drain management per IR Abdulkadir Helton MD, FACP [facility] O: [phone] F: [phone] Subjective Date of service: 12/12/20 Principal diagnosis: Sepsis Interval history: Low grade temps, drains +. Working with PT. Objective - Exam Narrative Exam: Physical Exam: Constitutional: awake, alert Head, Ears, Nose: Normocephalic, atraumatic. External ears, nose normal Eyes: Conjunctivae/corneas clear. No icterus. No ptosis. Neck: Supple, no meningeal signs Cardiovascular: S1, S2 normal. Respiratory: Good air entry, clear to auscultation bilaterally GI: R sided drain +. bowel sounds +. Left sided drain + Musculoskeletal: No pedal edema, no cyanosis. Skin: No rash or abscess Hem/Lymphatic: No palpable cervical or supraclavicular nodes. No lymphangitis Psych: calm, no agitation Neurological: Awake, alert - Constitutional Vitals: Vital Signs Temp Pulse Resp BP Pulse Ox 98.3 F 94 H 20 93/58 97 12/12/20 03:48 12/12/20 10:32 12/12/20 03:48 12/12/20 10:32 12/12/20 03:48 Temperature -Last 24 Hours Temperature 98.3 F Temperature 99.1 F Temperature 98.5 F - Labs CBC & Chem 7: 12/12/20 06:46 12/12/20 06:46 Labs: Abnormal lab results 12/12/20 12/12/20 Range/Units 06:46 06:46 WBC 12.5 H (4.5-11.0) K/mm3 RBC 2.84 L (3.65-5.03) M/mm3 Hgb 7.4 L (11.8-15.2) gm/dl Hct 22.1 L (35.5-45.6) % MCV 78 L (84-94) fl MCH 26 L (28-32) pg RDW 19.4 H (13.2-15.2) % Plt Count 587 H (140-440) K/mm3 BUN 6 L (9-20) mg/dL Creatinine 0.6 L (0.8-1.3) mg/dL Calcium 8.1 L (8.4-10.2) mg/dL
--- NOTE | 2020-12-12 12:29 | Progress Note ---
Assessment and Plan Assessment and plan: 60-year-old -[place] male who presented to [facility] for acute pancreatitis has been diagnosed with multifocal fluid and gas collection in the right pararenal space secondary to possible pseudocysts from chronic pancreatitis --Sepsis secondary to infected pseudocyst? - Abdominal drain catheter placed on 12/05/2020 by IR Vascular surgery following Infectious disease following Surgical culture growing E. coli Patient placed on Zyvox, Zosyn antibiotics Repeat CT of abdomen on 12/11/2020 shows multiple encapsulated abdominal fluid collections. Collection has decreased by 50%. Collection now is 7.0 x 4.3 cm. A percutaneous drain has been placed in the right posterior pararenal space. This collection has increased in size from 1 cm to 3.8 cm in greatest thickness. There are few smaller loculated fluid collections near the esophageal hiatus in the medial left subdiaphragmatic space which appears stable. Small to medium perisplenic fluid collections appear decreased by 10% a collection along the right lateral abdominal wall is slightly increased from 3.8x2 0.2 x 5.1 x 3.0 cm. There is a small collection in the left lower quadrant measuring 4.5 x 1.8 cm which appears unchanged. Overall there is no overwhelming change that is appreciated since 12/04/[address] scan of the abdomen. Multiple encapsulated fluid collections are still seen in the abdomen some of which have increased in size and some which have decreased in size. GI has been consulted for additional recommendations to rule out pseudocyst --Right renal calyx rupture Large multifocal fluid and gas collections in the right pararenal space: etiology is suspected R renal calyceal rupture causing urinary leak. - Underwent IR drainage 12/02/2020 with about 500 cc of pinkish material drained. - Additional CT-guided placement of 8 [place] drainage catheter in left upper quadrant fluid collection with 180 mL of purulent urine aspirated on 12/05/2020. Urology following, recommended placement of drains Spoke with urology, creatinine from right flank drain is normal. Most likely not urine. No intervention from urology is required --Subcapsular splenic collection new, etiology unclear, possibly related to right renal calyx rupture --Mild pleural effusions Lasix --Hypernatremia Resolved --Alcohol withdrawal delirium Current Visit: No Status: Acute Currently on [facility] protocol No signs of withdrawal --Acute /chronic pancreatitis/alcohol related Current Visit: No Status: Acute Currently tolerating diet, no abdominal pain --Acute kidney injury Current Visit: Yes Status: Acute Resolved --Hypertension Current Visit: No Status: Chronic Metoprolol 12.5 mg twice daily Hydralazine 10 mg IV every 4 hours as needed Monitor patient's blood pressure --Nicotine dependence Current Visit: No Status: Chronic Smoking cessation counseling Nicotine patch as needed --VRE UTI/E. coli Current Visit: No Status: Acute Zosyn --Severe protein calorie malnutrition Current Visit: No Status: Acute Hypoalbuminemia , albumin 2.8 Nutrition supplements, nutrition consult and supportive care -- Metabolic acidosis Current Visit: Yes Status: Acute Plan to address problem: Secondary to uremia as well as chronic pancreatitis treat underlying etiology. Resolved DVT prophylaxis: SCDs CODE STATUS: Full Disposition: Spoke with vascular surgery, differential diagnosis includes pseudocyst. However after looking at the imaging, there is a possibility there is a renal etiology. Regardless, will have consult placed to GI for evaluation of abdominal fluid collection in the context of acute on chronic pancreatitis. Drains will be changed and fluid resent for analysis. If patient worsens, patient may need transfer to higher level of care. History Interval history: 60-year-old male patient was admitted with alcohol withdrawal symptoms On CIWA protocol patient has E. coli UTI completed treatment with antibiotics COVID-19 test is negative, waiting for placement however on 12/01/2020 Patient developed sudden abdominal pain, CT scan showed multiple loculated collections, sepsis IR Dr. Dugan, urology disposition Home and ID Dr. Garcia was consulted, IR is planning CT-guided aspiration Try to contact daughter Huong Hua, unable to reach left a message and requested to call back 11/20/2020; patient feels slightly better, no significant withdrawal symptoms Patient is on CIWA protocol, stable to be transferred out of IMCU to medical floor 11/21/2020; patient has severe agitation tremulousness, patient is on CIWA p rotocol Closely monitor withdrawal symptoms, adjust the medications as needed in the morning equal in both upper Advance diet to regular as tolerated. I called patient's mother and also patient's daughter Ms. Huong Hua at [phone] 11/22/2020; Patient continues to be agitated confused mumbling, On CIWA protocol, restraint for safety. E. coli UTI on Zosyn Called again patient's daughter next of kin Ms. Huong Hua at [phone][number obtained from rn field case manager Ms. Vo] Did not turkey picker the phone I left a voicemail again today to discuss about Mr. Parada's condition and treatment plan 11/23/2020 Patient continues to be agitated Resumed service 11/26/2020; Patient still has mild alcohol withdrawal symptoms Restraints for safety 11/27/2020; Patient is off CIWA protocol and restraints PT OT evaluated, PT recommending subacute rehab 11/28/2020; today patient has some mild shortness of breath and wheezing Tachycardia heart rate in 100 -110 , alert awake oriented x3 Possible fluid overload, give 1 dose of Lasix IV, checks chest x-ray 11/29/2020; patient is more alert and awake, no shortness of breath No alcohol withdrawal symptoms, pending subacute rehab placemen 11/30/2020; Anemia patient's hemoglobin dropped to 6.9, transfuse 1 unit PRBC Stool for occult blood, GI consult if needed 12/01/2020; stool guaiac negative Hb improved to 8.1, complains of some abdominal pain and discomfort Will check CT abdomen and pelvis Pending placement IAdvised to quit alcohol intake CT abdomen and pelvis multifocal fluid collection IR/urology/ID were consulted, started antibiotics IR recommend CT-guided drainage 12/02/2020; CT-guided drainage pain, tried to contact and next of kin daughter Ms. Huong Hua at [phone][number obtained from rn field case manager Ms. Vo] Did not turkey picker the phone, left message to call back 12/03/2020; patient feels slightly better CT-guided drain placement yesterday per IR ID changed antibiotics to Zosyn Reevaluation by PT, recommend subacute rehab DC planning per case management We will discharge to subacute rehab when medically stable 12/04/2020; follow-up CT abdomen and pelvis 12/04/2020 Findings as above, persistent fluid collections in multiple areas 12/05/2020; CT-guided placement of abdominal drainage catheter for right perinephrotic calyceal rupture and intra-abdominal stranding of infected urine. Patient tolerated the procedure well Continue postoperative care All the consultants and recommendations noted and appreciated 12/06/2020; patient feels slightly better, has 2 drains into the pocket intra- abdominal fluid collection Draining well, IR, surgery, ID following 12/07/2020; patient feels slightly better, has 2 drains into the pocket intra- abdominal fluid collection 12/08/20 patient feels slightly better, has 2 drains into the pocket intra-abdominal fluid collection Draining well, IR, surgery, ID following 12/09/20 patient feels slightly better, has 2 drains into the pocket intra-abdominal fluid collection Draining well, IR, surgery, ID following 12/10/2020: Patient seen and examined, states that he is improved, does have some crackles in his lungs, somewhat difficult to breathe. No fevers or chills overnight. Continues on antibiotics. . 12/11/2020: Patient seen and examined, states that his breathing is improved somewhat. Start patient on Lasix. CT of abdomen reviewed, fluid collections persist. 12/12/2020: Patient seen and examined, continues to have minimal abdominal and flank pain. No acute distress, Hospitalist Physical - Physical exam Narrative exam: General appearance: no acute distress, well-nourished EENT: PERRL, EOM intact, hearing intact, clear oral mucosa, poor dentition Neck: Present: supple, normal ROM Respiratory: Lungs clear to auscultation, no rales or rhonchi heard bilaterally Cardiovascular: Regular rate/rhythm, Normal S1 & S2. No gallop, rub Extremities: no ischemia, No edema, normal temperature, normal color, Full ROM Abdominal: Abdominal drain, right flank drain, both with minimal drainage, soft, no tenderness, non-distended Integumentary: Present: clear, warm, dry no wounds, no erythema noted Psychiatric: appropriate mood/affect, intact judgment & insight Neurologic: CNII-XII intact, moves all extremities, no sensory or motor abnormalities - Constitutional Vitals: Temp Pulse Resp BP Pulse Ox 98.3 F 94 H 20 93/58 97 12/12/20 03:48 12/12/20 10:32 12/12/20 03:48 12/12/20 10:32 12/12/20 03:48 General appearance: Present: no acute distress, well-nourished HEART Score - HEART Score Troponin: Troponin T < 0.010 ng/mL (0.00-0.029) 11/19/20 22:51 Results - Labs CBC & Chem 7: 12/12/20 06:46 12/12/20 06:46 Labs: Laboratory Last Values WBC 12.5 K/mm3 (4.5-11.0) H 12/12/20 06:46 RBC 2.84 M/mm3 (3.65-5.03) L 12/12/20 06:46 Hgb 7.4 gm/dl (11.8-15.2) L 12/12/20 06:46 Hct 22.1 % (35.5-45.6) L 12/12/20 06:46 MCV 78 fl (84-94) L 12/12/20 06:46 MCH 26 pg (28-32) L 12/12/20 06:46 MCHC 34 % (32-34) 12/12/20 06:46 RDW 19.4 % (13.2-15.2) H 12/12/20 06:46 Plt Count 587 K/mm3 (140-440) H 12/12/20 06:46 Lymph % (Auto) 11.8 % (13.4-35.0) L 12/09/20 04:08 [place] % (Auto) 10.8 % (0.0-7.3) H 12/09/20 04:08 Eos % (Auto) 0.3 % (0.0-4.3) 12/09/20 04:08 Baso % (Auto) 0.6 % (0.0-1.8) 12/09/20 04:08 Lymph # (Auto) 1.6 K/mm3 (1.2-5.4) 12/09/20 04:08 [place] # (Auto) 1.4 K/mm3 (0.0-0.8) H 12/09/20 04:08 Eos # (Auto) 0.0 K/mm3 (0.0-0.4) 12/09/20 04:08 Baso # (Auto) 0.1 K/mm3 (0.0-0.1) 12/09/20 04:08 Add Manual Diff Complete 12/08/20 09:39 Total Counted 100 12/08/20 09:39 Seg Neutrophils % 76.5 % (40.0-70.0) H 12/09/20 04:08 Seg Neuts % (Manual) 73.0 % (40.0-70.0) H 12/08/20 09:39 Band Neutrophils % 2.0 % 12/08/20 09:39 Lymphocytes % (Manual) 16.0 % (13.4-35.0) 12/08/20 09:39 Reactive Lymphs % (Man) 1.0 % 12/07/20 05:49 Monocytes % (Manual) 9.0 % (0.0-7.3) H 12/08/20 09:39 Eosinophils % (Manual) 1.0 % (0.0-4.3) 12/04/20 19:01 Metamyelocytes % 3.0 % 12/07/20 05:49 Myelocytes % 2.0 % 12/02/20 07:01 Nucleated RBC % Not Reportable 12/08/20 09:39 Seg Neutrophils # 10.0 K/mm3 (1.8-7.7) H 12/09/20 04:08 Seg Neutrophils # Man 9.9 K/mm3 (1.8-7.7) H 12/08/20 09:39 Band Neutrophils # 0.3 K/mm3 12/08/20 09:39 Lymphocytes # (Manual) 2.2 K/mm3 (1.2-5.4) 12/08/20 09:39 Abs React Lymphs (Man) 0.0 K/mm3 12/08/20 09:39 Monocytes # (Manual) 1.2 K/mm3 (0.0-0.8) H 12/08/20 09:39 Eosinophils # (Manual) 0.0 K/mm3 (0.0-0.4) 12/08/20 09:39 Basophils # (Manual) 0.0 K/mm3 (0.0-0.1) 12/08/20 09:39 Metamyelocytes # 0.0 K/mm3 12/08/20 09:39 Myelocytes # 0.0 K/mm3 12/08/20 09:39 Promyelocytes # 0.0 K/mm3 12/08/20 09:39 Blast Cells # 0.0 K/mm3 12/08/20 09:39 WBC Morphology Not Reportable 12/08/20 09:39 WBC Morphology TNR 12/08/20 09:39 Hypersegmented Neuts Not Reportable 12/08/20 09:39 Hyposegmented Neuts Not Reportable 12/08/20 09:39 Hypogranular Neuts Not Reportable 12/08/20 09:39 Smudge Cells Not Reportable 12/08/20 09:39 Toxic Granulation Not Reportable 12/08/20 09:39 Toxic Vacuolation Not Reportable 12/08/20 09:39 Dohle Bodies Not Reportable 12/08/20 09:39 Pelger-Huet Anomaly Not Reportable 12/08/20 09:39 Aiden Rods Not Reportable 12/08/20 09:39 Platelet Estimate Not Reportable 12/08/20 09:39 Clumped Platelets Not Reportable 12/08/20 09:39 Plt Clumps, EDTA Not Reportable 12/08/20 09:39 Large Platelets Not Reportable 12/08/20 09:39 Giant Platelets Not Reportable 12/08/20 09:39 Platelet Satelliting Not Reportable 12/08/20 09:39 Plt Morphology Comment Not Reportable 12/08/20 09:39 RBC Morphology Not Reportable 12/08/20 09:39 Dimorphic RBCs Not Reportable 12/08/20 09:39 Polychromasia Not Reportable 12/08/20 09:39 Hypochromasia Not Reportable 12/08/20 09:39 Poikilocytosis Not Reportable 12/08/20 09:39 Anisocytosis 1+ 12/08/20 09:39 Microcytosis Not Reportable 12/08/20 09:39 Macrocytosis Not Reportable 12/08/20 09:39 Spherocytes Not Reportable 12/08/20 09:39 Pappenheimer Bodies Not Reportable 12/08/20 09:39 Sickle Cells Not Reportable 12/08/20 09:39 Target Cells Not Reportable 12/08/20 09:39 Tear Drop Cells Not Reportable 12/08/20 09:39 Ovalocytes Not Reportable 12/08/20 09:39 Stomatocytes Few 12/04/20 19:01 Helmet Cells Not Reportable 12/08/20 09:39 Lux-Cleghorn Bodies Not Reportable 12/08/20 09:39 [place] Rings Not Reportable 12/08/20 09:39 Dalton Cells Not Reportable 12/08/20 09:39 Bite Cells Not Reportable 12/08/20 09:39 Crenated Cell Not Reportable 12/08/20 09:39 Elliptocytes Not Reportable 12/08/20 09:39 Acanthocytes (Spur) Not Reportable 12/08/20 09:39 Rouleaux Not Reportable 12/08/20 09:39 Hemoglobin C Crystals Not Reportable 12/08/20 09:39 Schistocytes Not Reportable 12/08/20 09:39 Malaria parasites Not Reportable 12/08/20 09:39 Florin Bodies Not Reportable 12/08/20 09:39 Hem Pathologist Commnt No 12/08/20 09:39 PT 15.8 Sec. (12.2-14.9) H 12/01/20 05:53 INR 1.21 (0.87-1.13) H 12/01/20 05:53 APTT 33.7 Sec. (24.2-36.6) 12/01/20 05:53 D-Dimer 1767.06 ng/mlDDU (0-234) H 11/19/20 16:44 ABG pH 7.454 (7.320-7.450) H 11/28/20 17:47 POC ABG pCO2 25.8 mmHg (32.0-48.0) L 11/28/20 17:47 POC ABG pO2 65.5 mmHg (83-108) L 11/28/20 17:47 POC ABG HCO3 17.7 11/28/20 17:47 ABG O2 Saturation 94.3 (0-100) 11/28/20 17:47 POC ABG Base Excess -5.5 11/28/20 17:47 ABG Hemoglobin 7.0 (12.0-17.5) L 11/28/20 17:47 ABG Oxyhemoglobin 92.2 (94-98) L 11/28/20 17:47 ABG Methemoglobin 0.3 (0.0-1.5) 11/28/20 17:47 ABG Sodium 143.6 mmol/L (136.0-145.0) 11/28/20 17:47 ABG Potassium 3.6 mmol/L (3.40-4.50) 11/28/20 17:47 ABG Chloride 117.0 mmol/L (98-107) H 11/28/20 17:47 ABG Glucose 104 mg/dL (65-95) H 11/28/20 17:47 Carboxyhemoglobin 1.9 (0.5-1.5) H 11/28/20 17:47 FiO2 % 21.0 11/28/20 17:47 Sodium 138 mmol/L (137-145) 12/12/20 06:46 Potassium 3.6 mmol/L (3.6-5.0) 12/12/20 06:46 Chloride 98.5 mmol/L (98-107) 12/12/20 06:46 Carbon Dioxide 30 mmol/L (22-30) 12/12/20 06:46 Anion Gap 13 mmol/L 12/12/20 06:46 BUN 6 mg/dL (9-20) L 12/12/20 06:46 Creatinine 0.6 mg/dL (0.8-1.3) L 12/12/20 06:46 Estimated GFR > 60 ml/min 12/12/20 06:46 BUN/Creatinine Ratio 10 % 12/12/20 06:46 Glucose 81 mg/dL (75-100) 12/12/20 06:46 POC Glucose 90 mg/dL (70-105) 12/10/20 17:10 Lactic Acid 3.10 mmol/L (0.7-2.0) H* 11/19/20 18:28 Calcium 8.1 mg/dL (8.4-10.2) L 12/12/20 06:46 Phosphorus 2.60 mg/dL (2.5-4.5) 12/07/20 05:49 Magnesium 1.40 mg/dL (1.7-2.3) L 12/07/20 05:49 Total Bilirubin 0.40 mg/dL (0.1-1.2) 12/09/20 04:08 Direct Bilirubin 0.2 mg/dL (0-0.2) 11/19/20 16:44 Indirect Bilirubin 0.3 mg/dL 11/19/20 16:44 AST 12 units/L (5-40) 12/09/20 04:08 ALT < 5 units/L (7-56) L 12/09/20 04:08 Alkaline Phosphatase 111 units/L (35-129) 12/09/20 04:08 Total Creatine Kinase 26 units/L (55-170) L 11/19/20 16:44 CK-MB (CK-2) < 1.0 ng/mL (0.0-4.0) 11/19/20 16:44 CK-MB (CK-2) Rel Index 3.8 (0-4) 11/19/20 16:44 Troponin T < 0.010 ng/mL (0.00-0.029) 11/19/20 22:51 NT-Pro-B Natriuret Pep 454.0 pg/mL (0-900) 11/19/20 16:44 Total Protein 5.4 g/dL (6.3-8.2) L 12/09/20 04:08 Albumin 1.4 g/dL (3.9-5) L 12/09/20 04:08 Albumin/Globulin Ratio 0.4 % 12/09/20 04:08 Amylase 52 units/L (27-131) 12/04/20 03:52 Lipase > 6000 units/L (13-60) H 12/02/20 22:38 Arterial Blood Glucose 104 mg/dL (65-95) H 11/28/20 17:47 Arterial Blood Ionized Calcium 4.5 mg/dL (4.6-5.3) L 11/28/20 17:47 Urine Color Yellow (Yellow) 12/01/20 18:45 Urine Turbidity Clear (Clear) 12/01/20 18:45 Urine pH 6.0 (5.0-7.0) 12/01/20 18:45 Ur Specific [place] 1.036 (1.003-1.030) H 12/01/20 18:45 Urine Protein <15 mg/dl mg/dL (Negative) 12/01/20 18:45 Urine Glucose (UA) Neg mg/dL (Negative) 12/01/20 18:45 Urine Ketones Neg mg/dL (Negative) 12/01/20 18:45 Urine Blood Neg (Negative) 12/01/20 18:45 Urine Nitrite Neg (Negative) 12/01/20 18:45 Urine Bilirubin Neg (Negative) 12/01/20 18:45 Urine Urobilinogen < 2.0 mg/dL (<2.0) 12/01/20 18:45 Ur Leukocyte Esterase Tr (Negative) 12/01/20 18:45 Urine WBC (Auto) 3.0 /HPF (0.0-6.0) 12/01/20 18:45 Urine RBC (Auto) 1.0 /HPF (0.0-6.0) 12/01/20 18:45 U Epithel Cells (Auto) < 1.0 /HPF (0-13.0) 12/01/20 18:45 Urine Bacteria (Auto) 1+ /HPF (Negative) 11/19/20 19:18 Hyaline Casts 1 /LPF 11/19/20 19:18 Urine Mucus Few /HPF 12/01/20 18:45 Urine Creatinine 0.8 mg/dL (0.1-20.0) 12/02/20 22:38 Fluid Amylase 20140 12/02/20 22:38 Nasal Screen MRSA (PCR) Negative (Negative) 11/20/20 Unknown Urine Opiates Screen Negative 11/19/20 19:18 Urine Methadone Screen Negative 11/19/20 19:18 Ur Barbiturates Screen Negative 11/19/20 19:18 Ur Phencyclidine Scrn Negative 11/19/20 19:18 Ur Amphetamines Screen Negative 11/19/20 19:18 U Benzodiazepines Scrn Negative 11/19/20 19:18 Urine Cocaine Screen Negative 11/19/20 19:18 U Marijuana (THC) Screen Negative 11/19/20 19:18 Drugs of Abuse Note Disclamer 11/19/20 19:18 Coronavirus (PCR) Negative (Negative) 11/27/20 08:45 Blood Type O POSITIVE 11/30/20 15:00 Antibody Screen Negative 11/30/20 15:00 Crossmatch See Detail 11/30/20 15:00 Viramontes/IV: Voiding Method Condom Catheter Active Medications - Current Medications Current Medications: Generic Name Dose Route Start Last Admin Trade Name Freq PRN Reason Stop Dose Admin Acetaminophen 650 mg 11/20/20 14:00 12/08/20 23:51 Acetaminophen 325 Mg Tab PO 650 mg Q6H PRN Administration Pain, Mild (1-3) Albuterol 2.5 mg 11/30/20 12:00 Albuterol 2.5 Mg/3 Ml Nebu IH Q4HRT PRN Shortness Of Breath Bisacodyl 5 mg 12/04/20 18:45 Bisacodyl 5 Mg Tab PO QDAY PRN Constipation Folic Acid 1 mg 11/20/20 10:00 12/12/20 10:29 Folic Acid 1 Mg Tab PO 1 mg QDAY JANNETH Administration Furosemide 40 mg 12/11/20 10:00 12/12/20 10:29 Furosemide 40 Mg/4 Ml Inj IV 40 mg QDAY JANNETH Administration Hydralazine HCl 10 mg 11/19/20 18:18 Hydralazine 20 Mg/1 Ml Inj IV Q4HR PRN Hypertension Piperacillin Sod/Tazobactam Sod 4.5 gm in 100 mls @ 200 mls/hr 12/03/20 15:00 12/12/20 09:00 Zosyn/Ns 4.5gm/100ml IV 200 mls/hr Q6H JANNETH Administration Protocol Linezolid 600 mg 12/09/20 13:00 12/12/20 10:28 Linezolid 600 Mg Tab PO 12/13/20 22:01 600 mg Q12HR JANNETH Administration Protocol Lorazepam 2 mg 11/27/20 12:30 12/02/20 23:05 Lorazepam 2 Mg/Ml Vial IV 2 mg Q4H PRN Administration Agitation Losartan Potassium 100 mg 11/20/20 10:00 12/12/20 10:32 Losartan 50 Mg Tab PO Not Given QDAY JANNETH Metoprolol Tartrate 12.5 mg 11/28/20 22:00 12/12/20 10:33 Metoprolol Tartrate 25 Mg Tab PO Not Given BID JANNETH Morphine Sulfate 2 mg 12/06/20 09:30 12/11/20 07:12 Morphine 2 Mg/1 Ml Inj IV 2 mg Q8H PRN Administration Pain, Moderate (4-6) Ondansetron HCl 4 mg 11/19/20 18:11 11/30/20 18:37 Ondansetron 4 Mg/2 Ml Inj IV 4 mg Q8H PRN Administration Nausea And Vomiting Oxycodone/Acetaminophen 1 tab 12/06/20 10:00 12/12/20 04:35 Oxycodone /Acetaminophen 5-325mg Tab PO 1 tab Q6H PRN Administration Pain, Moderate (4-6) Pantoprazole Sodium 40 mg 12/04/20 07:30 12/12/20 10:23 Pantoprazole 40 Mg Tab PO 40 mg QDAC JANNETH Administration Sodium Bicarbonate 1,300 mg 11/29/20 20:00 12/12/20 08:00 Sodium Bicarbonate 650 Mg Tab PO 1,300 mg TID JANNETH Administration Sodium Chloride 10 ml 11/19/20 22:00 12/12/20 10:33 Sodium Chloride 0.9% 10 Ml Flush Syringe IV 10 ml BID JANNETH Administration Sodium Chloride 10 ml 11/19/20 19:11 11/30/20 18:37 Sodium Chloride 0.9% 10 Ml Flush Syringe IV 10 ml PRN PRN Administration LINE FLUSH Nutrition/Malnutrition Assess - Dietary Evaluation Nutrition/Malnutrition Findings: Nutrition Notes Start: 11/20/20 12:00 Freq: Status: Active Protocol: Document 12/09/20 11:30 (Rec: 12/09/20 11:34 [id number]) Nutrition Notes Initial or Follow up Reassessment Current Diagnosis Sepsis,Hypertension, Hyperlipidemia Other Pertinent Diagnosis Acute alcoholic pancreatitis, EtOH withdrawal delirium, ARF, GERD Current Diet Cardiac Labs/Tests Na 136 Pertinent Medications Folic acid Height 5 ft 10 in Weight 90.2 kg [place] Body Weight (kg) 75.45 BMI 28.5 Weight Status Overweight Subjective/Other Information FU for intakes. Unable to reach pt. Per RN, pt did not eat breakfast. He has one left over ONS from yesterday. Pt stated to RN he will drink 1 ONS for breakfast. Percent of energy/protein needs met: 17%/24% Burn Absent Trauma Absent Current % PO Negligible Minimum of two criteria No Energy Intake (severe) < or equal to 50% Estimated Energy Requirement > or equal to 5 days #2 Nutrition Diagnosis Inadequate oral intake Diagnosis Progress(for reassessment Continues documentation) Is patient on ventilator? No Is Patient Ambulatory and/or Out of Bed No REE-([facility]-confined to bed) 6.580 Calculation Used for Recommendations [facility] Additional Notes Pro needs 1-1.2g/k-98g/ day Fluid needs 1ml/kcal Nutrition Intervention Change Diet Order: Continue current diet as ordered Add Supplement/Snack (indicate name/kcal Ensure Enlive BID /protein ) Provides kCal: 700 Provides Protein (gm) 40 Goal #1 Meet at least 75% of energy and protein needs Anticipated Discharge Needs: CHO-controlled, low fat diet Follow-Up By: 12/12/20 Additional Comments F/U or intakes, ONS tolerance, new food prefrences
[2020-12-12] MEDS: ONDANSETRON 4 MG/2 ML INJ IV PRN (14:44)
--- NOTE | 2020-12-12 15:02 | Gastroenterology Consultation ---
History of Present Illness - Reason for Consult Consult date: 12/12/20 r/o pancreatic pseudocyst Requesting physician: PANFILO RODRIGUEZ - History of Present Illness In brief is a 60-year-old gentleman history of pancreatitis admitted with multiple complaints Found to have multiple fluid collections Thought to be urology related However, question if due to pancreatitis and pancreatic leakage therefore GI consulted Labs do show elevated amylase from fluid drawn 10 days ago Imaging reviewed, case was also discussed with Dr. Munoz Patient reports currently with abdominal pain that is diffuse and mild if he is sitting still however is much worse with movement and palpation Obtained/updated/reviewed patient's current medications Past History Past Medical History: GERD, hypertension, hyperlipidemia, liver disease. denie s: atrial fib, arrhythmia, anemia, CAD, cancer, COPD, diabetes, dialysis, DVT, ESRD, heart failure, hepatitis, HIV/AIDS, hyperthyroidism, hypothyroidism, migraines, PVD, pulmonary embolism, renal failure, seizures, stroke, sarcoidosis Past Surgical History: No surgical history, Other (Scrotal lesion) Social history: lives with family, smoking, alcohol abuse Family history: no significant family history Medications and Allergies Allergies Allergy/AdvReac Type Severity Reaction Status Date / Time No Known Allergies Allergy Verified 10/25/19 12:42 Home Medications Medication Instructions Recorded Confirmed Last Taken Type Folic Acid [Folvite] 1 mg PO QDAY #30 tablet 10/27/19 11/20/20 11/18/20 Rx Colchicine 0.6 mg PO TID 11/20/20 11/20/20 Unknown History Cyanocobalamin (Vitamin B-12) 100 mcg PO QDAY 11/20/20 11/20/20 11/18/20 History Hydrochlorothiazide 12.5 mg PO QDAY 11/20/20 11/20/20 11/18/20 History Lipase/Protease/Amylase [Karen Dr 1 cap PO TID 11/20/20 11/20/20 11/18/20 History 6,000 Units] Losartan Potassium 100 mg PO QDAY 11/20/20 11/20/20 11/18/20 History Meloxicam 15 mg PO DAILY 11/20/20 11/20/20 11/18/20 History Pantoprazole [Protonix TAB] 40 mg PO DAILY 11/20/20 11/20/20 11/18/20 History Potassium Gluconate [Potassium] 595 mg PO QDAY 11/20/20 11/20/20 11/18/20 History allopurinoL [Zyloprim] 300 mg PO DAILY 11/20/20 11/20/20 11/18/20 History amLODIPine 10 mg PO DAILY 11/20/20 11/20/20 11/18/20 11:00 History Active Meds: Active Medications Acetaminophen (Acetaminophen 325 Mg Tab) 650 mg PO Q6H PRN PRN Reason: Pain, Mild (1-3) Last Admin: 12/08/20 23:51 Dose: 650 mg Documented by: Albuterol (Albuterol 2.5 Mg/3 Ml Nebu) 2.5 mg IH Q4HRT PRN PRN Reason: Shortness Of Breath Bisacodyl (Bisacodyl 5 Mg Tab) 5 mg PO QDAY PRN PRN Reason: Constipation Folic Acid (Folic Acid 1 Mg Tab) 1 mg PO QDAY [facility] Last Admin: 12/12/20 10:29 Dose: 1 mg Documented by: Furosemide (Furosemide 40 Mg/4 Ml Inj) 40 mg IV QDAY [facility] Last Admin: 12/12/20 10:29 Dose: 40 mg Documented by: Hydralazine HCl (Hydralazine 20 Mg/1 Ml Inj) 10 mg IV Q4HR PRN PRN Reason: Hypertension Piperacillin Sod/Tazobactam Sod (Zosyn/Ns 4.5gm/100ml) 4.5 gm in 100 mls @ 200 mls/hr IV Q6H [facility]; Protocol Last Admin: 12/12/20 14:35 Dose: 200 mls/hr Documented by: Linezolid (Linezolid 600 Mg Tab) 600 mg PO Q12HR [facility]; Protocol Stop: 12/13/20 22:01 Last Admin: 12/12/20 10:28 Dose: 600 mg Documented by: Lorazepam (Lorazepam 2 Mg/Ml Vial) 2 mg IV Q4H PRN PRN Reason: Agitation Last Admin: 12/02/20 23:05 Dose: 2 mg Documented by: Losartan Potassium (Losartan 50 Mg Tab) 100 mg PO QDAY [facility] Last Admin: 12/12/20 10:32 Dose: Not Given Documented by: Metoprolol Tartrate (Metoprolol Tartrate 25 Mg Tab) 12.5 mg PO BID [facility] Last Admin: 12/12/20 10:33 Dose: Not Given Documented by: Morphine Sulfate (Morphine 2 Mg/1 Ml Inj) 2 mg IV Q8H PRN PRN Reason: Pain, Moderate (4-6) Last Admin: 12/11/20 07:12 Dose: 2 mg Documented by: Ondansetron HCl (Ondansetron 4 Mg/2 Ml Inj) 4 mg IV Q8H PRN PRN Reason: Nausea And Vomiting Last Admin: 12/12/20 14:44 Dose: 4 mg Documented by: Oxycodone/Acetaminophen (Oxycodone /Acetaminophen 5-325mg Tab) 1 tab PO Q6H PRN PRN Reason: Pain, Moderate (4-6) Last Admin: 12/12/20 14:35 Dose: 1 tab Documented by: Pantoprazole Sodium (Pantoprazole 40 Mg Tab) 40 mg PO QDAC [facility] Last Admin: 12/12/20 10:23 Dose: 40 mg Documented by: Sodium Bicarbonate (Sodium Bicarbonate 650 Mg Tab) 1,300 mg PO TID [facility] Last Admin: 12/12/20 14:35 Dose: 1,300 mg Documented by: Sodium Chloride (Sodium Chloride 0.9% 10 Ml Flush Syringe) 10 ml IV BID [facility] Last Admin: 12/12/20 10:33 Dose: 10 ml Documented by: Sodium Chloride (Sodium Chloride 0.9% 10 Ml Flush Syringe) 10 ml IV PRN PRN PRN Reason: LINE FLUSH Last Admin: 11/30/20 18:37 Dose: 10 ml Documented by: Review of Systems - Review of Systems All systems: negative (10 Systems reviewed and negative except as mentioned above in the history of present illness) Exam - Constitutional Vital Signs: Temp Pulse Resp BP Pulse Ox 98.5 F 96 H 19 93/58 99 12/12/20 10:30 12/12/20 10:36 12/12/20 10:30 12/12/20 10:32 12/12/20 10:36 General appearance: no acute distress - EENT Eyes: EOM intact - Neck Neck: supple - Respiratory Respiratory effort: normal - Cardiovascular Rhythm: regular - Gastrointestinal General gastrointestinal: Present: soft, tender, normal bowel sounds (Drain in p lace left abdomen), other - Labs CBC & Chem 7: 12/12/20 06:46 12/12/20 06:46 Lab Results: Laboratory Results - last 24 hr 12/12/20 12/12/20 06:46 06:46 WBC 12.5 H RBC 2.84 L Hgb 7.4 L Hct 22.1 L MCV 78 L MCH 26 L MCHC 34 RDW 19.4 H Plt Count 587 H Sodium 138 Potassium 3.6 Chloride 98.5 Carbon Dioxide 30 Anion Gap 13 BUN 6 L Creatinine 0.6 L Estimated GFR > 60 BUN/Creatinine Ratio 10 Glucose 81 Calcium 8.1 L Assessment and Plan Unclear etiology for the fluid collections. Differential diagnosis includes di sruption of the renal collection system, disruption of pancreatic duct, etc. Would recommend repeat analysis of the abdominal fluid specifically from GI perspective would check amylase, albumin, triglycerides, cell count with differential I will also order an MRI of pancreas for further evaluation of the pancreatic duct to see if there is any evidence of disruption - Patient Problems (1) Intra-abdominal abscess Current Visit: Yes Status: Acute (2) Chronic alcoholic pancreatitis Current Visit: No Status: Acute (3) Pancreatitis Current Visit: No Status: Acute Qualifiers: Chronicity: acute Pancreatitis type: unspecified pancreatitis type Acute pancreatitis complication: unspecified Qualified Code(s): K85.90 - Acute pancreatitis without necrosis or infection, unspecified
[2020-12-12] MEDS: MORPHINE 2 MG/1 ML INJ IV PRN (18:59)
--- NOTE | 2020-12-12 19:02 | Magnetic Resonance Report ---
MRI ABDOMEN/MRCP WITHOUT AND WITH CONTRAST INDICATION / CLINICAL INFORMATION: to be done in conjunction with MRCP please, please eval for Pancre atic Duct disruption 18ml of clariscan given. TECHNIQUE: Multiplanar, multisequence series were obtained through the abdomen. Pre and postcontrast images were obtained. MRCP is performed. 18 cc of clariscan is administered COMPARISON: CT scan dated 12/11/2020 FINDINGS: LOWER CHEST: There are bilateral pleural effusions. There is bibasilar atelectasis. LIVER: No significant abnormality. GALLBLADDER: No significant abnormality. BILE DUCTS: No significant abnormality. PANCREAS: The pancreatic duct is irregular and has a beaded appearance. There is a short segment of t he neck of the pancreas where no duct is identified. SPLEEN: No significant abnormality. ADRENALS: No significant abnormality. RIGHT KIDNEY / URETER: Unchanged. There is fluid signal the densities in the kidney characteristic of cysts. LEFT KIDNEY / URETER: No significant abnormality. STOMACH / VISUALIZED BOWEL: No significant abnormality. PERITONEUM: Multiple fluid collections are again noted these appear unchanged from the CT scan dated 12/11/2020. There were larger collections in the right retroperitoneal space in the subdiaphragmatic s pace. There is a small collection along the posterior wall of the distal stomach. There is a very sma ll amount of fluid adjacent to the uncinate process of the pancreas. LYMPH NODES: No significant adenopathy. AORTA / ARTERIES: No significant abnormality. IVC / VEINS: No significant abnormality. ADDITIONAL FINDINGS: None. SKELETAL SYSTEM: No acute abnormality IMPRESSION: 1. Multiple fluid collections appear similar to CT scan performed on 12/11/2020. 2. The pancreatic duct is irregular and has a somewhat beaded appearance. There is a segment in the n elaine of the pancreas which point the pancreatic duct is not visualized which could indicate a strictur e in the duct. This could represent a site of duct disruption. Signer Name: Tarun Rodriguez MD Signed: 12/12/2020 6:58 PM Workstation Name: [id number]
[2020-12-13] MEDS: PIPERACIL/TAZOBACTA 4.5/NS 100 4.5 GM/100 ML VIAL IV SCH ×4 (02:17→21:10)
[2020-12-13] MEDS: ACETAMINOPHEN 325 MG TAB PO PRN (03:42)
[2020-12-13] MEDS: MORPHINE 2 MG/1 ML INJ IV PRN ×3 (06:37→16:59)
--- NOTE | 2020-12-13 08:33 | Gastroenterology Progress Note ---
Assessment and Plan Based upon MRI results and fluid results from December 02 pancreatic duct destruction now much higher in the differential diagnosis Case was discussed with our advanced endoscopy physicians and recommendation to transfer to tertiary care center for more advanced procedure availability specifically EUS prior to potential ERCP This was discussed with the attending I am starting the transfer process - Patient Problems (1) Intra-abdominal abscess Current Visit: Yes Status: Acute (2) Chronic alcoholic pancreatitis Current Visit: No Status: Acute (3) Pancreatitis Current Visit: No Status: Acute Qualifiers: Chronicity: acute Pancreatitis type: unspecified pancreatitis type Acute pancreatitis complication: unspecified Qualified Code(s): K85.90 - Acute pancreatitis without necrosis or infection, unspecified Subjective Date of service: 12/13/20 Principal diagnosis: Sepsis Interval history: Patient reports diffuse abdominal pain Unchanged Severe Asking for pain med MRI results noted Objective - Constitutional Vitals: Temp Pulse Resp BP Pulse Ox 100.3 F H 103 H 18 100/56 92 12/13/20 03:32 12/13/20 04:00 12/13/20 03:32 12/13/20 03:32 12/13/20 03:32 General appearance: no acute distress - EENT Eyes: EOM intact - Respiratory Respiratory effort: normal - Gastrointestinal General gastrointestinal: Present: soft, tender, other (drain in place, minimal drainage at the moment) - Integumentary Integumentary: Present: dry - Labs CBC & Chem 7: 12/12/20 06:46 12/12/20 06:46 Labs: Laboratory Results - last 24 hr 12/12/20 06:46 Creatinine 0.6 L Estimated GFR > 60 BUN/Creatinine Ratio 10
[2020-12-13 08:50] LABS: Blood Urea Nitrogen 8 mg/dL (9-20); Calcium 7.9 mg/dL (8.4-10.2); Hemolysis Index 7
[2020-12-13 08:53] LABS: Hemoglobin 7.4 gm/dl (11.8-15.2); Mean Corpuscular HGB Conc 34 % (32-34); Mean Corpuscular Volume 78 fl (84-94); Platelet Count 526 K/mm3 (140-440); Red Cell Distribution Width 19.4 % (13.2-15.2)
[2020-12-13 08:58] LABS: BUN/Creatinine Ratio 13
[2020-12-13] MEDS: LOSARTAN 50 MG TAB PO SCH (10:56)
[2020-12-13] MEDS: PANTOPRAZOLE 40 MG TAB PO SCH (10:56)
[2020-12-13] MEDS: FUROSEMIDE 40 MG/4 ML INJ IV SCH (10:57)
[2020-12-13] MEDS: LINEZOLID 600 MG TAB PO SCH ×2 (10:57→22:54)
[2020-12-13] MEDS: FOLIC ACID 1 MG TAB PO SCH (10:57)
[2020-12-13] MEDS: METOPROLOL TARTRATE 25 MG TAB PO SCH ×2 (10:57→21:10)
--- NOTE | 2020-12-13 12:24 | Progress Note ---
Assessment and Plan Cultures: 11/27/2020 COVID-19 PCR: Negative 11/19/2020 blood culture: No growth 11/19/2020 urine culture: E. coli 12/01/2020 blood culture: No growth 12/01/2020 urine culture: Enterococcus faecium (VRE) 12/02/2020 IR drainage culture: E.coli 12/05/2020 LUQ drainage cultures: E.coli A/P: 60-year-old male with gastroesophageal reflux disease, hypertension, hyperlipidemia, alcohol abuse admitted to the hospital on 11/19/2020 with abdominal pain from suspected pancreatitis and alcohol withdrawal: #Sepsis: Source: large multifocal fluid and gas collections in the abdomen. #Large multifocal fluid and gas collections in the right pararenal space: etiology initially was suspected R renal calyceal rupture causing urinary leak v/s infected pancreatic pseudocyst. Urology evaluated and IR following. Underwent IR drainage 12/02/2020 with about 500 cc of pinkish material drained. Additional CT-guided placement of 8 [place] drainage catheter in left upper quadrant fluid collection with 180 mL of purulent urine aspirated on 12/05/2020. Repeat CT on 12/11/2020 with multiple encapsulated fluid collections, some decreased while some increased. Suspected pancreatic pseudocyst due to pancreatic duct disruption, noted on abdominal MRI. Fluid amylase was high. Evaluated by GI, planned for transfer to [facility] for more advanced endoscopic procedure. #Subcapsular splenic collection: new, etiology unclear, likely related to above. #Acute alcohol withdrawal, chronic alcohol abuse #JOHN: Resolved #UTI: s/p abx. Recs: -Continue Zosyn, D12 (duration will depend on radiologic resolution, anticipate at least 4 weeks) -Zyvox for UTI completed today -pancreatic duct abnormality noted on abdominal MRI. Fluid amylase was high. Evaluated by GI, planned for transfer to [facility] for more advanced endoscopic procedure. Abdulkadir Helton MD, FACP [facility] O: [phone] F: [phone] Subjective Date of service: 12/13/20 Principal diagnosis: Sepsis Interval history: Low grade temps, drains +. Mild abdominal pain. Had abdominal MRI. Objective - Exam Narrative Exam: Physical Exam: Constitutional: awake, alert Head, Ears, Nose: Normocephalic, atraumatic. External ears, nose normal Eyes: Conjunctivae/corneas clear. No icterus. No ptosis. Neck: Supple, no meningeal signs Cardiovascular: S1, S2 normal. Respiratory: Good air entry, clear to auscultation bilaterally GI: R sided drain +. bowel sounds +. Left sided drain + Musculoskeletal: No pedal edema, no cyanosis. Skin: No rash or abscess Hem/Lymphatic: No palpable cervical or supraclavicular nodes. No lymphangitis Psych: calm, no agitation Neurological: Awake, alert - Constitutional Vitals: Vital Signs Temp Pulse Resp BP Pulse Ox 100.3 F H 105 H 18 100/56 92 12/13/20 03:32 12/13/20 08:00 12/13/20 03:32 12/13/20 03:32 12/13/20 03:32 Temperature -Last 24 Hours Temperature 100.3 F Temperature 99.7 F Temperature 99.5 F - Labs CBC & Chem 7: 12/13/20 08:10 12/13/20 08:10 Labs: Abnormal lab results 12/13/20 12/13/20 Range/Units 08:10 08:10 WBC 12.5 H (4.5-11.0) K/mm3 RBC 2.80 L (3.65-5.03) M/mm3 Hgb 7.4 L (11.8-15.2) gm/dl Hct 22.0 L (35.5-45.6) % MCV 78 L (84-94) fl MCH 27 L (28-32) pg RDW 19.4 H (13.2-15.2) % Plt Count 526 H (140-440) K/mm3 BUN 8 L (9-20) mg/dL Creatinine 0.6 L (0.8-1.3) mg/dL Calcium 7.9 L (8.4-10.2) mg/dL
--- NOTE | 2020-12-13 13:13 | Progress Note ---
Assessment and Plan Assessment and plan: 60-year-old -Iranian male who presented to [facility] for acute pancreatitis has been diagnosed with multifocal fluid and gas collection in the right pararenal space secondary to pancreatic duct disruption with leakage. --Sepsis secondary to pancreatic duct leak? - Abdominal drain catheter placed on 12/05/2020 by IR Vascular surgery following Infectious disease following Surgical culture growing E. coli Patient placed on Zyvox, Zosyn antibiotics Repeat CT of abdomen on 12/11/2020 shows multiple encapsulated abdominal fluid co llections. Collection has decreased by 50%. Collection now is 7.0 x 4.3 cm. A percutaneous drain has been placed in the right posterior pararenal space. This collection has increased in size from 1 cm to 3.8 cm in greatest thickness. There are few smaller loculated fluid collections near the esophageal hiatus in the medial left subdiaphragmatic space which appears stable. Small to medium perisplenic fluid collections appear decreased by 10% a collection along the right lateral abdominal wall is slightly increased from 3.8x2 0.2 x 5.1 x 3.0 cm. There is a small collection in the left lower quadrant measuring 4.5 x 1.8 cm which appears unchanged. Overall there is no overwhelming change that is appreciated since 12/04/[address] scan of the abdomen. Multiple encapsulated fluid collections are still seen in the abdomen some of which have increased in size and some which have decreased in size. 12/12/2020 MRCP abdomen shows pancreatic duct irregularities which could indicate a stricture and duct disruption. GI consulted, they recommend transfer to [facility] for EUS and potential ERCP. --Right renal calyx rupture Large multifocal fluid and gas collections in the right pararenal space: etiology is suspected R renal calyceal rupture causing urinary leak. - Underwent IR drainage 12/02/2020 with about 500 cc of pinkish material drained. - Additional CT-guided placement of 8 [place] drainage catheter in left upper quadrant fluid collection with 180 mL of purulent urine aspirated on 12/05/2020. Urology following, recommended placement of drains Spoke with urology, creatinine from right flank drain is normal. Most likely not urine. No intervention from urology is required --Subcapsular splenic collection new, etiology unclear, possibly related to right renal calyx rupture --Mild pleural effusions Lasix --Hypernatremia Resolved --Alcohol withdrawal delirium Current Visit: No Status: Acute Currently on CIWA protocol No signs of withdrawal --Acute /chronic pancreatitis/alcohol related Current Visit: No Status: Acute Currently tolerating diet, no abdominal pain --Acute kidney injury Current Visit: Yes Status: Acute Resolved --Hypertension Current Visit: No Status: Chronic Metoprolol 12.5 mg twice daily Hydralazine 10 mg IV every 4 hours as needed Monitor patient's blood pressure --Nicotine dependence Current Visit: No Status: Chronic Smoking cessation counseling Nicotine patch as needed --VRE UTI/E. coli Current Visit: No Status: Acute Zosyn --Severe protein calorie malnutrition Current Visit: No Status: Acute Hypoalbuminemia , albumin 2.8 Nutrition supplements, nutrition consult and supportive care -- Metabolic acidosis Current Visit: Yes Status: Acute Plan to address problem: Secondary to uremia as well as chronic pancreatitis treat underlying etiology. Resolved DVT prophylaxis: SCDs CODE STATUS: Full Disposition: Patient will be transferred to [facility], accepting GI physician is Dr. Winston. Accepting hospitalist is Dr. Boykin. Patient will be transferred on Wednesday, December 16. All records should be printed and imaging should be placed on CDs. This should be transported with the patient. History Interval history: 60-year-old male patient was admitted with alcohol withdrawal symptoms On CIWA protocol patient has E. coli UTI completed treatment with antibiotics COVID-19 test is negative, waiting for placement however on 12/01/2020 Patient developed sudden abdominal pain, CT scan showed multiple loculated collections, sepsis IR Dr. Dugan, urology disposition Home and ID Dr. Garcia was consulted, IR is planning CT-guided aspiration Try to contact daughter Huong Hua, unable to reach left a message and requested to call back 11/20/2020; patient feels slightly better, no significant withdrawal symptoms Patient is on CIWA protocol, stable to be transferred out of [facility] to medical floor 11/21/2020; patient has severe agitation tremulousness, patient is on CIWA protocol Closely monitor withdrawal symptoms, adjust the medications as needed in the morning equal in both upper Advance diet to regular as tolerated. I called patient's mother and also patient's daughter Ms. Huong Hua at [phone] 11/22/2020; Patient continues to be agitated confused mumbling, On CIWA protocol, restraint for safety. E. coli UTI on Zosyn Called again patient's daughter next of kin Ms. Huong Hua at [phone][number obtained from medical case worker Ms. Vo] Did not mixing picker tender the phone I left a voicemail again today to discuss about Mr. Parada's condition and treatment plan 11/23/2020 Patient continues to be agitated Resumed service 11/26/2020; Patient still has mild alcohol withdrawal symptoms Restraints for safety 11/27/2020; Patient is off CIWA protocol and restraints PT OT evaluated, PT recommending subacute rehab 11/28/2020; today patient has some mild shortness of breath and wheezing Tachycardia heart rate in 100 -110 , alert awake oriented x3 Possible fluid overload, give 1 dose of Lasix IV, checks chest x-ray 11/29/2020; patient is more alert and awake, no shortness of breath No alcohol withdrawal symptoms, pending subacute rehab placemen 11/30/2020; Anemia patient's hemoglobin dropped to 6.9, transfuse 1 unit PRBC Stool for occult blood, GI consult if needed 12/01/2020; stool guaiac negative Hb improved to 8.1, complains of some abdominal pain and discomfort Will check CT abdomen and pelvis Pending placement IAdvised to quit alcohol intake CT abdomen and pelvis multifocal fluid collection IR/urology/ID were consulted, started antibiotics IR recommend CT-guided drainage 12/02/2020; CT-guided drainage pain, tried to contact and next of kin daughter Ms. Huong Hua at [phone][number obtained from medical case worker Ms. Vo] Did not mixing picker tender the phone, left message to call back 12/03/2020; patient feels slightly better CT-guided drain placement yesterday per IR ID changed antibiotics to Zosyn Reevaluation by PT, recommend subacute rehab DC planning per case management We will discharge to subacute rehab when medically stable 12/04/2020; follow-up CT abdomen and pelvis 12/04/2020 Findings as above, persistent fluid collections in multiple areas 12/05/2020; CT-guided placement of abdominal drainage catheter for right perinephrotic calyceal rupture and intra-abdominal stranding of infected urine. Patient tolerated the procedure well Continue postoperative care All the consultants and recommendations noted and appreciated 12/06/2020; patient feels slightly better, has 2 drains into the pocket intra- abdominal fluid collection Draining well, IR, surgery, ID following 12/07/2020; patient feels slightly better, has 2 drains into the pocket intra- abdominal fluid collection 12/08/20 patient feels slightly better, has 2 drains into the pocket intra-abdominal fluid collection Draining well, IR, surgery, ID following 12/09/20 patient feels slightly better, has 2 drains into the pocket intra-abdominal fluid collection Draining well, IR, surgery, ID following 12/10/2020: Patient seen and examined, states that he is improved, does have some crackles in his lungs, somewhat difficult to breathe. No fevers or chills overnight. Continues on antibiotics. . 12/11/2020: Patient seen and examined, states that his breathing is improved somewhat. Start patient on Lasix. CT of abdomen reviewed, fluid collections persist. 12/12/2020: Patient seen and examined, continues to have minimal abdominal and flank pain. No acute distress 12/13/2020: Patient seen and examined, working with PT. Continues to have mild pain. Minimal drainage from drains. Hospitalist Physical - Physical exam Narrative exam: General appearance: no acute distress, well-nourished EENT: PERRL, EOM intact, hearing intact, clear oral mucosa, poor dentition Neck: Present: supple, normal ROM Respiratory: Lungs clear to auscultation, no rales or rhonchi heard bilaterally Cardiovascular: Regular rate/rhythm, Normal S1 & S2. No gallop, rub Extremities: no ischemia, No edema, normal temperature, normal color, Full ROM Abdominal: Abdominal drain with minimal brown drainage, right flank drain with minimal brown drainage, abdomen soft, no tenderness, non-distended Integumentary: Present: clear, warm, dry no wounds, no erythema noted Psychiatric: appropriate mood/affect, intact judgment & insight Neurologic: CNII-XII intact, moves all extremities, no sensory or motor abnormalities - Constitutional Vitals: Temp Pulse Resp BP Pulse Ox 98.5 F 95 H 22 101/60 96 12/13/20 11:49 12/13/20 11:49 12/13/20 11:49 12/13/20 11:49 12/13/20 11:49 HEART Score - HEART Score Troponin: Troponin T < 0.010 ng/mL (0.00-0.029) 11/19/20 22:51 Results - Labs CBC & Chem 7: 12/13/20 08:10 12/13/20 08:10 Labs: Laboratory Last Values WBC 12.5 K/mm3 (4.5-11.0) H 12/13/20 08:10 RBC 2.80 M/mm3 (3.65-5.03) L 12/13/20 08:10 Hgb 7.4 gm/dl (11.8-15.2) L 12/13/20 08:10 Hct 22.0 % (35.5-45.6) L 12/13/20 08:10 MCV 78 fl (84-94) L 12/13/20 08:10 MCH 27 pg (28-32) L 12/13/20 08:10 MCHC 34 % (32-34) 12/13/20 08:10 RDW 19.4 % (13.2-15.2) H 12/13/20 08:10 Plt Count 526 K/mm3 (140-440) H 12/13/20 08:10 Lymph % (Auto) 11.8 % (13.4-35.0) L 12/09/20 04:08 [place] % (Auto) 10.8 % (0.0-7.3) H 12/09/20 04:08 Eos % (Auto) 0.3 % (0.0-4.3) 12/09/20 04:08 Baso % (Auto) 0.6 % (0.0-1.8) 12/09/20 04:08 Lymph # (Auto) 1.6 K/mm3 (1.2-5.4) 12/09/20 04:08 [place] # (Auto) 1.4 K/mm3 (0.0-0.8) H 12/09/20 04:08 Eos # (Auto) 0.0 K/mm3 (0.0-0.4) 12/09/20 04:08 Baso # (Auto) 0.1 K/mm3 (0.0-0.1) 12/09/20 04:08 Add Manual Diff Complete 12/08/20 09:39 Total Counted 100 12/08/20 09:39 Seg Neutrophils % 76.5 % (40.0-70.0) H 12/09/20 04:08 Seg Neuts % (Manual) 73.0 % (40.0-70.0) H 12/08/20 09:39 Band Neutrophils % 2.0 % 12/08/20 09:39 Lymphocytes % (Manual) 16.0 % (13.4-35.0) 12/08/20 09:39 Reactive Lymphs % (Man) 1.0 % 12/07/20 05:49 Monocytes % (Manual) 9.0 % (0.0-7.3) H 12/08/20 09:39 Eosinophils % (Manual) 1.0 % (0.0-4.3) 12/04/20 19:01 Metamyelocytes % 3.0 % 12/07/20 05:49 Myelocytes % 2.0 % 12/02/20 07:01 Nucleated RBC % Not Reportable 12/08/20 09:39 Seg Neutrophils # 10.0 K/mm3 (1.8-7.7) H 12/09/20 04:08 Seg Neutrophils # Man 9.9 K/mm3 (1.8-7.7) H 12/08/20 09:39 Band Neutrophils # 0.3 K/mm3 12/08/20 09:39 Lymphocytes # (Manual) 2.2 K/mm3 (1.2-5.4) 12/08/20 09:39 Abs React Lymphs (Man) 0.0 K/mm3 12/08/20 09:39 Monocytes # (Manual) 1.2 K/mm3 (0.0-0.8) H 12/08/20 09:39 Eosinophils # (Manual) 0.0 K/mm3 (0.0-0.4) 12/08/20 09:39 Basophils # (Manual) 0.0 K/mm3 (0.0-0.1) 12/08/20 09:39 Metamyelocytes # 0.0 K/mm3 12/08/20 09:39 Myelocytes # 0.0 K/mm3 12/08/20 09:39 Promyelocytes # 0.0 K/mm3 12/08/20 09:39 Blast Cells # 0.0 K/mm3 12/08/20 09:39 WBC Morphology Not Reportable 12/08/20 09:39 WBC Morphology TNR 12/08/20 09:39 Hypersegmented Neuts Not Reportable 12/08/20 09:39 Hyposegmented Neuts Not Reportable 12/08/20 09:39 Hypogranular Neuts Not Reportable 12/08/20 09:39 Smudge Cells Not Reportable 12/08/20 09:39 Toxic Granulation Not Reportable 12/08/20 09:39 Toxic Vacuolation Not Reportable 12/08/20 09:39 Dohle Bodies Not Reportable 12/08/20 09:39 Pelger-Huet Anomaly Not Reportable 12/08/20 09:39 Aiden Rods Not Reportable 12/08/20 09:39 Platelet Estimate Not Reportable 12/08/20 09:39 Clumped Platelets Not Reportable 12/08/20 09:39 Plt Clumps, EDTA Not Reportable 12/08/20 09:39 Large Platelets Not Reportable 12/08/20 09:39 Giant Platelets Not Reportable 12/08/20 09:39 Platelet Satelliting Not Reportable 12/08/20 09:39 Plt Morphology Comment Not Reportable 12/08/20 09:39 RBC Morphology Not Reportable 12/08/20 09:39 Dimorphic RBCs Not Reportable 12/08/20 09:39 Polychromasia Not Reportable 12/08/20 09:39 Hypochromasia Not Reportable 12/08/20 09:39 Poikilocytosis Not Reportable 12/08/20 09:39 Anisocytosis 1+ 12/08/20 09:39 Microcytosis Not Reportable 12/08/20 09:39 Macrocytosis Not Reportable 12/08/20 09:39 Spherocytes Not Reportable 12/08/20 09:39 Pappenheimer Bodies Not Reportable 12/08/20 09:39 Sickle Cells Not Reportable 12/08/20 09:39 Target Cells Not Reportable 12/08/20 09:39 Tear Drop Cells Not Reportable 12/08/20 09:39 Ovalocytes Not Reportable 12/08/20 09:39 Stomatocytes Few 12/04/20 19:01 Helmet Cells Not Reportable 12/08/20 09:39 [employer] Bodies Not Reportable 12/08/20 09:39 [place] Rings Not Reportable 12/08/20 09:39 [place] Cells Not Reportable 12/08/20 09:39 Bite Cells Not Reportable 12/08/20 09:39 Crenated Cell Not Reportable 12/08/20 09:39 Elliptocytes Not Reportable 12/08/20 09:39 Acanthocytes (Spur) Not Reportable 12/08/20 09:39 Rouleaux Not Reportable 12/08/20 09:39 Hemoglobin C Crystals Not Reportable 12/08/20 09:39 Schistocytes Not Reportable 12/08/20 09:39 Malaria parasites Not Reportable 12/08/20 09:39 [place]in Bodies Not Reportable 12/08/20 09:39 Hem Pathologist Commnt No 12/08/20 09:39 PT 15.8 Sec. (12.2-14.9) H 12/01/20 05:53 INR 1.21 (0.87-1.13) H 12/01/20 05:53 APTT 33.7 Sec. (24.2-36.6) 12/01/20 05:53 D-Dimer 1767.06 ng/mlDDU (0-234) H 11/19/20 16:44 ABG pH 7.454 (7.320-7.450) H 11/28/20 17:47 POC ABG pCO2 25.8 mmHg (32.0-48.0) L 11/28/20 17:47 POC ABG pO2 65.5 mmHg (83-108) L 11/28/20 17:47 POC ABG HCO3 17.7 11/28/20 17:47 ABG O2 Saturation 94.3 (0-100) 11/28/20 17:47 POC ABG Base Excess -5.5 11/28/20 17:47 ABG Hemoglobin 7.0 (12.0-17.5) L 11/28/20 17:47 ABG Oxyhemoglobin 92.2 (94-98) L 11/28/20 17:47 ABG Methemoglobin 0.3 (0.0-1.5) 11/28/20 17:47 ABG Sodium 143.6 mmol/L (136.0-145.0) 11/28/20 17:47 ABG Potassium 3.6 mmol/L (3.40-4.50) 11/28/20 17:47 ABG Chloride 117.0 mmol/L (98-107) H 11/28/20 17:47 ABG Glucose 104 mg/dL (65-95) H 11/28/20 17:47 Carboxyhemoglobin 1.9 (0.5-1.5) H 11/28/20 17:47 FiO2 % 21.0 11/28/20 17:47 Sodium 138 mmol/L (137-145) 12/13/20 08:10 Potassium 3.6 mmol/L (3.6-5.0) 12/13/20 08:10 Chloride 98.6 mmol/L (98-107) 12/13/20 08:10 Carbon Dioxide 30 mmol/L (22-30) 12/13/20 08:10 Anion Gap 13 mmol/L 12/13/20 08:10 BUN 8 mg/dL (9-20) L 12/13/20 08:10 Creatinine 0.6 mg/dL (0.8-1.3) L 12/13/20 08:10 Estimated GFR > 60 ml/min 12/13/20 08:10 BUN/Creatinine Ratio 13 % 12/13/20 08:10 Glucose 84 mg/dL (75-100) 12/13/20 08:10 POC Glucose 90 mg/dL (70-105) 12/10/20 17:10 Lactic Acid 3.10 mmol/L (0.7-2.0) H* 11/19/20 18:28 Calcium 7.9 mg/dL (8.4-10.2) L 12/13/20 08:10 Phosphorus 2.60 mg/dL (2.5-4.5) 12/07/20 05:49 Magnesium 1.40 mg/dL (1.7-2.3) L 12/07/20 05:49 Total Bilirubin 0.40 mg/dL (0.1-1.2) 12/09/20 04:08 Direct Bilirubin 0.2 mg/dL (0-0.2) 11/19/20 16:44 Indirect Bilirubin 0.3 mg/dL 11/19/20 16:44 AST 12 units/L (5-40) 12/09/20 04:08 ALT < 5 units/L (7-56) L 12/09/20 04:08 Alkaline Phosphatase 111 units/L (35-129) 12/09/20 04:08 Total Creatine Kinase 26 units/L (55-170) L 11/19/20 16:44 CK-MB (CK-2) < 1.0 ng/mL (0.0-4.0) 11/19/20 16:44 CK-MB (CK-2) Rel Index 3.8 (0-4) 11/19/20 16:44 Troponin T < 0.010 ng/mL (0.00-0.029) 11/19/20 22:51 NT-Pro-B Natriuret Pep 454.0 pg/mL (0-900) 11/19/20 16:44 Total Protein 5.4 g/dL (6.3-8.2) L 12/09/20 04:08 Albumin 1.4 g/dL (3.9-5) L 12/09/20 04:08 Albumin/Globulin Ratio 0.4 % 12/09/20 04:08 Amylase 52 units/L (27-131) 12/04/20 03:52 Lipase > 6000 units/L (13-60) H 12/02/20 22:38 Arterial Blood Glucose 104 mg/dL (65-95) H 11/28/20 17:47 Arterial Blood Ionized Calcium 4.5 mg/dL (4.6-5.3) L 11/28/20 17:47 Urine Color Yellow (Yellow) 12/01/20 18:45 Urine Turbidity Clear (Clear) 12/01/20 18:45 Urine pH 6.0 (5.0-7.0) 12/01/20 18:45 Ur Specific [place] 1.036 (1.003-1.030) H 12/01/20 18:45 Urine Protein <15 mg/dl mg/dL (Negative) 12/01/20 18:45 Urine Glucose (UA) Neg mg/dL (Negative) 12/01/20 18:45 Urine Ketones Neg mg/dL (Negative) 12/01/20 18:45 Urine Blood Neg (Negative) 12/01/20 18:45 Urine Nitrite Neg (Negative) 12/01/20 18:45 Urine Bilirubin Neg (Negative) 12/01/20 18:45 Urine Urobilinogen < 2.0 mg/dL (<2.0) 12/01/20 18:45 Ur Leukocyte Esterase Tr (Negative) 12/01/20 18:45 Urine WBC (Auto) 3.0 /HPF (0.0-6.0) 12/01/20 18:45 Urine RBC (Auto) 1.0 /HPF (0.0-6.0) 12/01/20 18:45 U Epithel Cells (Auto) < 1.0 /HPF (0-13.0) 12/01/20 18:45 Urine Bacteria (Auto) 1+ /HPF (Negative) 11/19/20 19:18 Hyaline Casts 1 /LPF 11/19/20 19:18 Urine Mucus Few /HPF 12/01/20 18:45 Urine Creatinine 0.8 mg/dL (0.1-20.0) 12/02/20 22:38 Fluid Amylase 21125 12/02/20 22:38 Nasal Screen MRSA (PCR) Negative (Negative) 11/20/20 Unknown Urine Opiates Screen Negative 11/19/20 19:18 Urine Methadone Screen Negative 11/19/20 19:18 Ur Barbiturates Screen Negative 11/19/20 19:18 Ur Phencyclidine Scrn Negative 11/19/20 19:18 Ur Amphetamines Screen Negative 11/19/20 19:18 U Benzodiazepines Scrn Negative 11/19/20 19:18 Urine Cocaine Screen Negative 11/19/20 19:18 U Marijuana (THC) Screen Negative 11/19/20 19:18 Drugs of Abuse Note Disclamer 11/19/20 19:18 Coronavirus (PCR) Negative (Negative) 11/27/20 08:45 Blood Type O POSITIVE 11/30/20 15:00 Antibody Screen Negative 11/30/20 15:00 Crossmatch See Detail 11/30/20 15:00 Microbiology: Microbiology 12/01/20 Unknown Urine,Clean Catch Urine Culture - Preliminary Enterococcus Faecium Viramontes/IV: Voiding Method Condom Catheter Active Medications - Current Medications Current Medications: Generic Name Dose Route Start Last Admin Trade Name Freq PRN Reason Stop Dose Admin Acetaminophen 650 mg 11/20/20 14:00 12/13/20 03:42 Acetaminophen 325 Mg Tab PO 650 mg Q6H PRN Administration Pain, Mild (1-3) Albuterol 2.5 mg 11/30/20 12:00 Albuterol 2.5 Mg/3 Ml Nebu IH Q4HRT PRN Shortness Of Breath Bisacodyl 5 mg 12/04/20 18:45 Bisacodyl 5 Mg Tab PO QDAY PRN Constipation Folic Acid 1 mg 11/20/20 10:00 12/13/20 10:57 Folic Acid 1 Mg Tab PO Not Given QDAY ON LICENSE OF [facility] Furosemide 40 mg 12/11/20 10:00 12/13/20 10:57 Furosemide 40 Mg/4 Ml Inj IV Not Given QDAY ON LICENSE OF [facility] Hydralazine HCl 10 mg 11/19/20 18:18 Hydralazine 20 Mg/1 Ml Inj IV Q4HR PRN Hypertension Piperacillin Sod/Tazobactam Sod 4.5 gm in 100 mls @ 200 mls/hr 12/03/20 15:00 12/13/20 11:39 Zosyn/Ns 4.5gm/100ml IV 200 mls/hr Q6H ON LICENSE OF [facility] Administration Protocol Linezolid 600 mg 12/09/20 13:00 12/13/20 10:57 Linezolid 600 Mg Tab PO 12/13/20 22:01 Not Given Q12HR ON LICENSE OF [facility] Protocol Lorazepam 2 mg 11/27/20 12:30 12/02/20 23:05 Lorazepam 2 Mg/Ml Vial IV 2 mg Q4H PRN Administration Agitation Losartan Potassium 100 mg 11/20/20 10:00 12/13/20 10:56 Losartan 50 Mg Tab PO Not Given QDAY ON LICENSE OF [facility] Metoprolol Tartrate 12.5 mg 11/28/20 22:00 12/13/20 10:57 Metoprolol Tartrate 25 Mg Tab PO Not Given BID ON LICENSE OF [facility] Morphine Sulfate 2 mg 12/06/20 09:30 12/13/20 09:40 Morphine 2 Mg/1 Ml Inj IV 2 mg Q8H PRN Administration Pain, Moderate (4-6) Ondansetron HCl 4 mg 11/19/20 18:11 12/12/20 14:44 Ondansetron 4 Mg/2 Ml Inj IV 4 mg Q8H PRN Administration Nausea And Vomiting Oxycodone/Acetaminophen 1 tab 12/06/20 10:00 12/12/20 14:35 Oxycodone /Acetaminophen 5-325mg Tab PO 1 tab Q6H PRN Administration Pain, Moderate (4-6) Pantoprazole Sodium 40 mg 12/04/20 07:30 12/13/20 10:56 Pantoprazole 40 Mg Tab PO Not Given QDAC ON LICENSE OF [facility] Sodium Chloride 10 ml 06/08/21 22:00 12/13/20 09:40 Sodium Chloride 0.9% 10 Ml Flush Syringe IV 10 ml BID JANNETH Administration Sodium Chloride 10 ml 11/19/20 19:11 11/30/20 18:37 Sodium Chloride 0.9% 10 Ml Flush Syringe IV 10 ml PRN PRN Administration LINE FLUSH Nutrition/Malnutrition Assess - Dietary Evaluation Nutrition/Malnutrition Findings: Nutrition Notes Start: 11/20/20 12:00 Freq: Status: Active Protocol: Document 12/12/20 12:57 MK (Rec: 12/12/20 13:00 MK [id number]) Nutrition Notes Initial or Follow up Reassessment Current Diagnosis Sepsis,Hypertension, Hyperlipidemia Other Pertinent Diagnosis Acute alcoholic pancreatitis, EtOH withdrawal delirium, ARF, GERD Current Diet Cardiac Labs/Tests Reviewed Pertinent Medications Lasix Height 5 ft 10 in Weight 86.6 kg [place] Body Weight (kg) 75.45 BMI 27.3 Weight change and time frame wt fluctuations Weight Status Overweight Subjective/Other Information FU for intakes. Pt reports not able to eat much fod. He is drinking 2 ONS daily. He states he could drink 3 daily. Percent of energy/protein needs met: 35%/49% Burn Absent Trauma Absent Current % PO Negligible Minimum of two criteria No Energy Intake (severe) < or equal to 50% Estimated Energy Requirement > or equal to 5 days #2 Nutrition Diagnosis Inadequate oral intake As Evidenced by Signs and Symptoms pt meeting 35%/49% of needs Diagnosis Progress(for reassessment Improved documentation) Is patient on ventilator? No Is Patient Ambulatory and/or Out of Bed No REE-([facility]-confined to bed) 2022.416 Calculation Used for Recommendations [facility] Additional Notes Pro needs 1-1.2g/k-98g/ day Fluid needs 1ml/kcal Nutrition Intervention Change Diet Order: Continue current diet as ordered Add Supplement/Snack (indicate name/kcal Ensure Enlive TID /protein ) Provides kCal: 1,050 Provides Protein (gm) 60 Goal #1 Meet at least 75% of energy and protein needs Anticipated Discharge Needs: CHO-controlled, low fat diet Follow-Up By: 12/16/20 Additional Comments FU for intakes and ONS tolerance
[2020-12-13] MEDS ORDERED: HEPARIN/NS 5000 UNIT/500ML 500 ML IR ONE (14:00)
[2020-12-13] MEDS ORDERED: SODIUM CHLORIDE 0.9% 250ML 250 ML ONE (14:04)
[2020-12-13] MEDS: fentaNYL 100 MCG/2 ML INJ ONE ×3 (14:29→15:00)
[2020-12-13] MEDS: MIDAZOLAM 2 MG/2 ML INJ ONE ×2 (14:29→14:38)
[2020-12-13] MEDS: LIDOCAINE (2%) 20 MG/1 ML VIAL 20 ML MDV INFILTRATI ONE ×3 (14:30→15:00)
[2020-12-13] MEDS ORDERED: LIDOCAINE (2%) 20 MG/1 ML VIAL 20 ML MDV INFILTRATI ONE (14:59)
--- NOTE | 2020-12-13 15:15 | Operative Report ---
Operative Report Operative Report: Exam: Fluoroscopic guided evaluation and exchange of 2 abdominal drains Clinical indication: Patient with a history of 5 abdominal fluid collections, drainage catheters in the 2 large fluid collections with decreased drain output Date: 12/13/2020 Procedure: Following an explanation of the risk, benefits and alternatives; written informed consent was obtained. The patient was brought to the angiographic suite and placed in left lateral oblique position. The patient's right back drain and left anterior drain were prepped and draped in usual sterile fashion. 2% lidocaine was used for anesthesia. Posterior drain: Contrast was injected through the posterior drain. This demonstrates prompt opacification of a large fluid collection. There is ruby purulent fluid draining out around the drainage catheter. A 0.035 guidewire was advanced through the drainage catheter and coiled within the fluid collection. The catheter was then removed intact. A new 16 [place] all-purpose drainage catheter was then advanced over the guidewire under fluoroscopy and positioned to position the pigtail portion of the catheter within the central aspect of the fluid collection. A total of 60 mL of additional fluid was aspirated. 30 mL were collected in a syringe and sent for laboratory analysis. The catheter was securely fastened to the skin surface using 2-0 Ethilon suture and a stay fix device. The catheter was then placed to FLORA bulb drainage. Anterior drain: Contrast was injected through the anterior drainage catheter. This demonstrates prompt opacification of a large fluid collection. A 0.035 guidewire was advanced through the drainage catheter and coiled within the fluid collection. The catheter was then removed intact. A new 16 [place] all-purpose drainage catheter was then advanced over the guidewire under fluoroscopy following serial dilation under fluoroscopy. The pigtail was positioned in the central aspect of the fluid collection. 60 mL of ruby purulent fluid was aspirated and sent in a 60 mL syringe for laboratory analysis. The catheter was securely fastened to the skin surface using 2-0 Ethilon suture and placed to FLORA bulb drainage. Sterile dressings were then applied to both catheters. The patient tolerated the procedure well. There were no immediate postprocedure complications. Conscious sedation was performed under the guidance of radiologic nursing. Continuous cardiopulmonary monitoring was utilized. Impression: 1) Fluoroscopic guided evaluation and exchange of posterior drainage catheter with a total of 50 mL of additional obtained purulent fluid aspirated. A 30 mL syringe was then sent for laboratory analysis including culture and amylase. 2) Fluoroscopic guided advanced duration and exchange of anterior drainage catheter with a total of 60 mL of additional purulent fluid aspirated. A 60 mL syringe was then sent for laboratory analysis including culture and amylase.
--- NOTE | 2020-12-13 15:26 | Cat Scan Report ---
PLEASE SEE OPERATIVE REPORT FROM - [facility]
--- NOTE | 2020-12-13 15:27 | Cat Scan Report ---
PLEASE SEE OPERATIVE REPORT FROM 12-05-20 [facility]
[2020-12-13] MEDS: oxyCODONE /ACETAMINOPHEN 5-325MG TAB PO PRN (21:13)
[2020-12-14] MEDS: PIPERACIL/TAZOBACTA 4.5/NS 100 4.5 GM/100 ML VIAL IV SCH ×4 (02:34→22:22)
[2020-12-14 06:02] LABS: Hematocrit 21.8 % (35.5-45.6); Hemoglobin 7.2 gm/dl (11.8-15.2); Mean Corpuscular HGB Conc 33 % (32-34); Mean Corpuscular Volume 78 fl (84-94); Platelet Count 504 K/mm3 (140-440)
[2020-12-14] MEDS: oxyCODONE /ACETAMINOPHEN 5-325MG TAB PO PRN ×3 (06:13→23:23)
--- NOTE | 2020-12-14 08:19 | Progress Note ---
Assessment and Plan Assessment and plan: 60-year-old -[place] male who presented to [facility] for acute pancreatitis has been diagnosed with multifocal fluid and gas collection in the right pararenal space secondary to pancreatic duct disruption with leakage. --Sepsis secondary to pancreatic duct leak? - Abdominal drain catheter placed on 12/05/2020 by IR Surgical culture growing E. coli Vascular surgery following Infectious disease following, currently on Zosyn antibiotics Repeat CT of abdomen on 12/11/2020 shows multiple encapsulated abdominal fluid collections. Collection has decreased by 50%. Collection now is 7.0 x 4.3 cm. A percutaneous drain has been placed in the right posterior pararenal space. This collection has increased in size from 1 cm to 3.8 cm in greatest thickness. There are few smaller loculated fluid collections near the esophageal hiatus in the medial left subdiaphragmatic space which appears stable. Small to medium perisplenic fluid collections appear decreased by 10% a collection along the right lateral abdominal wall is slightly increased from 3.8x2 0.2 x 5.1 x 3.0 cm. There is a small collection in the left lower quadrant measuring 4.5 x 1.8 cm which appears unchanged. Overall there is no overwhelming change that is claudio reciated since 12/04/[address] scan of the abdomen. Multiple encapsulated fluid collections are still seen in the abdomen some of which have increased in size and some which have decreased in size. 12/12/2020 MRCP abdomen shows pancreatic duct irregularities which could indicate a stricture and duct disruption. GI consulted, they recommend transfer to [facility], [place] for EUS and potential ERCP. process initiated, paperwork pending. 12/13/2020: Abdominal 8 Cambodian drain replaced with a 16 Cambodian all-purpose drain catheter under fluoroscopy --Right renal calyx rupture Large multifocal fluid and gas collections in the right pararenal space: etiology is suspected R renal calyceal rupture causing urinary leak. - Underwent IR drainage 12/02/2020 with about 500 cc of pinkish material drained. - 12/05/2020 CT-guided placement of 8 Cambodian drainage catheter in left upper quadrant fluid collection with 180 mL of purulent urine aspirated Urology following, recommended placement of drains Spoke with urology, creatinine from right flank drain is normal. Most likely not urine. No intervention from urology is required - 12/13/2020: 8 Cambodian drain catheter replaced with right flank 16 Cambodian all- purpose drain catheter placed --Subcapsular splenic collection new, etiology unclear, possibly related to right renal calyx rupture --Mild pleural effusions Lasix --Hypernatremia Resolved --Alcohol withdrawal delirium Current Visit: No Status: Acute Currently on CIWA protocol No signs of withdrawal --Acute /chronic pancreatitis/alcohol related Current Visit: No Status: Acute Currently tolerating diet, no abdominal pain --Acute kidney injury Current Visit: Yes Status: Acute Resolved --Hypertension Current Visit: No Status: Chronic Metoprolol 12.5 mg twice daily Hydralazine 10 mg IV every 4 hours as needed Monitor patient's blood pressure --Nicotine dependence Current Visit: No Status: Chronic Smoking cessation counseling Nicotine patch as needed --VRE UTI/E. coli Current Visit: No Status: Acute Zyvox completed on 12/13/2020 --Severe protein calorie malnutrition Current Visit: No Status: Acute Hypoalbuminemia , albumin 2.8 Nutrition supplements, nutrition consult and supportive care -- Metabolic acidosis Current Visit: Yes Status: Acute Plan to address problem: Secondary to uremia as well as chronic pancreatitis treat underlying etiology. Resolved DVT prophylaxis: SCDs CODE STATUS: Full Disposition: Patient will be transferred to [facility], accepting GI physician is Dr. Winston. Accepting hospitalist is Dr. Boykin. Patient will be transferred on Wednesday, December 16. All records should be printed and imaging should be placed on CDs. This should be transported with the patient. History Interval history: 60-year-old male patient was admitted with alcohol withdrawal symptoms On CIWA protocol patient has E. coli UTI completed treatment with antibiotics COVID-19 test is negative, waiting for placement however on 12/01/2020 Patient developed sudden abdominal pain, CT scan showed multiple loculated collections, sepsis IR Dr. Dugan, urology disposition Home and ID Dr. Garcia was consulted, IR is planning CT-guided aspiration Try to contact daughter Huong Hua, unable to reach left a message and requested to call back 11/20/2020; patient feels slightly better, no significant withdrawal symptoms Patient is on CIWA protocol, stable to be transferred out of [facility] to medical floor 11/21/2020; patient has severe agitation tremulousness, patient is on CIWA protocol Closely monitor withdrawal symptoms, adjust the medications as needed in the morning equal in both upper Advance diet to regular as tolerated. I called patient's mother and also patient's daughter Ms. Huong Hua at [phone] 11/22/2020; Patient continues to be agitated confused mumbling, On CIWA protocol, restraint for safety. E. coli UTI on Zosyn Called again patient's daughter next of kin Ms. Huong Hua at [phone][number obtained from pillowcase folder Ms. Vo] Did not bean picker the phone I left a voicemail again today to discuss about Mr. Parada's condition and treatment plan 11/23/2020 Patient continues to be agitated Resumed service 11/26/2020; Patient still has mild alcohol withdrawal symptoms Restraints for safety 11/27/2020; Patient is off CIWA protocol and restraints PT OT evaluated, PT recommending subacute rehab 11/28/2020; today patient has some mild shortness of breath and wheezing Tachycardia heart rate in 100 -110 , alert awake oriented x3 Possible fluid overload, give 1 dose of Lasix IV, checks chest x-ray 11/29/2020; patient is more alert and awake, no shortness of breath No alcohol withdrawal symptoms, pending subacute rehab placemen 11/30/2020; Anemia patient's hemoglobin dropped to 6.9, transfuse 1 unit PRBC Stool for occult blood, GI consult if needed 12/01/2020; stool guaiac negative Hb improved to 8.1, complains of some abdominal pain and discomfort Will check CT abdomen and pelvis Pending placement IAdvised to quit alcohol intake CT abdomen and pelvis multifocal fluid collection IR/urology/ID were consulted, started antibiotics IR recommend CT-guided drainage 12/02/2020; CT-guided drainage pain, tried to contact and next of kin daughter Ms. Huong Hua at [phone][number obtained from pillowcase folder Ms. Vo] Did not bean picker the phone, left message to call back 12/03/2020; patient feels slightly better CT-guided drain placement yesterday per IR ID changed antibiotics to Zosyn Reevaluation by PT, recommend subacute rehab DC planning per case management We will discharge to subacute rehab when medically stable 12/04/2020; follow-up CT abdomen and pelvis 12/04/2020 Findings as above, persistent fluid collections in multiple areas 12/05/2020; CT-guided placement of abdominal drainage catheter for right perinephrotic calyceal rupture and intra-abdominal stranding of infected urine. Patient tolerated the procedure well Continue postoperative care All the consultants and recommendations noted and appreciated 12/06/2020; patient feels slightly better, has 2 drains into the pocket intra- abdominal fluid collection Draining well, IR, surgery, ID following 12/07/2020; patient feels slightly better, has 2 drains into the pocket intra- abdominal fluid collection 12/08/20 patient feels slightly better, has 2 drains into the pocket intra-abdominal fluid collection Draining well, IR, surgery, ID following 12/09/20 patient feels slightly better, has 2 drains into the pocket intra-abdominal fluid collection Draining well, IR, surgery, ID following 12/10/2020: Patient seen and examined, states that he is improved, does have some crackles in his lungs, somewhat difficult to breathe. No fevers or chills overnight. Continues on antibiotics. . 12/11/2020: Patient seen and examined, states that his breathing is improved somewhat. Start patient on Lasix. CT of abdomen reviewed, fluid collections persist. 12/12/2020: Patient seen and examined, continues to have minimal abdominal and f lank pain. No acute distress 12/13/2020: Patient seen and examined, working with PT. Continues to have mild pain. Minimal drainage from drains. 01/10/2021: Drains replaced yesterday per vascular surgery. Patient continues to have abdominal pain. Hospitalist Physical - Physical exam Narrative exam: General appearance: no acute distress, well-nourished EENT: PERRL, EOM intact, hearing intact, clear oral mucosa, poor dentition Neck: Present: supple, normal ROM Respiratory: Lungs clear to auscultation, no rales or rhonchi heard bilaterally Cardiovascular: Regular rate/rhythm, Normal S1 & S2. No gallop, rub Extremities: no ischemia, No edema, normal temperature, normal color, Full ROM Abdominal: Abdominal drain with thick 30 cc drainage, flank drain with serous ROM drainage, about 30 cc abdomen soft, no tenderness, non-distended Integumentary: Present: clear, warm, dry no wounds, no erythema noted Psychiatric: appropriate mood/affect, intact judgment & insight Neurologic: CNII-XII intact, moves all extremities, no sensory or motor abnormalities - Constitutional Vitals: Temp Pulse Resp BP Pulse Ox 98.7 F 92 H 14 98/56 97 12/14/20 06:22 12/14/20 06:22 12/14/20 06:22 12/14/20 06:22 12/14/20 06:22 HEART Score - HEART Score Troponin: Troponin T < 0.010 ng/mL (0.00-0.029) 11/19/20 22:51 Results - Labs CBC & Chem 7: 12/14/20 05:36 12/13/20 08:10 Labs: Laboratory Last Values WBC 10.2 K/mm3 (4.5-11.0) 12/14/20 05:36 RBC 2.80 M/mm3 (3.65-5.03) L 12/14/20 05:36 Hgb 7.2 gm/dl (11.8-15.2) L 12/14/20 05:36 Hct 21.8 % (35.5-45.6) L 12/14/20 05:36 MCV 78 fl (84-94) L 12/14/20 05:36 MCH 26 pg (28-32) L 12/14/20 05:36 MCHC 33 % (32-34) 12/14/20 05:36 RDW 19.0 % (13.2-15.2) H 12/14/20 05:36 Plt Count 504 K/mm3 (140-440) H 12/14/20 05:36 Lymph % (Auto) 11.8 % (13.4-35.0) L 12/09/20 04:08 [place] % (Auto) 10.8 % (0.0-7.3) H 12/09/20 04:08 Eos % (Auto) 0.3 % (0.0-4.3) 12/09/20 04:08 Baso % (Auto) 0.6 % (0.0-1.8) 12/09/20 04:08 Lymph # (Auto) 1.6 K/mm3 (1.2-5.4) 12/09/20 04:08 [place] # (Auto) 1.4 K/mm3 (0.0-0.8) H 12/09/20 04:08 Eos # (Auto) 0.0 K/mm3 (0.0-0.4) 12/09/20 04:08 Baso # (Auto) 0.1 K/mm3 (0.0-0.1) 12/09/20 04:08 Add Manual Diff Complete 12/08/20 09:39 Total Counted 100 12/08/20 09:39 Seg Neutrophils % 76.5 % (40.0-70.0) H 12/09/20 04:08 Seg Neuts % (Manual) 73.0 % (40.0-70.0) H 12/08/20 09:39 Band Neutrophils % 2.0 % 12/08/20 09:39 Lymphocytes % (Manual) 16.0 % (13.4-35.0) 12/08/20 09:39 Reactive Lymphs % (Man) 1.0 % 12/07/20 05:49 Monocytes % (Manual) 9.0 % (0.0-7.3) H 12/08/20 09:39 Eosinophils % (Manual) 1.0 % (0.0-4.3) 12/04/20 19:01 Metamyelocytes % 3.0 % 12/07/20 05:49 Myelocytes % 2.0 % 12/02/20 07:01 Nucleated RBC % Not Reportable 12/08/20 09:39 Seg Neutrophils # 10.0 K/mm3 (1.8-7.7) H 12/09/20 04:08 Seg Neutrophils # Man 9.9 K/mm3 (1.8-7.7) H 12/08/20 09:39 Band Neutrophils # 0.3 K/mm3 12/08/20 09:39 Lymphocytes # (Manual) 2.2 K/mm3 (1.2-5.4) 12/08/20 09:39 Abs React Lymphs (Man) 0.0 K/mm3 12/08/20 09:39 Monocytes # (Manual) 1.2 K/mm3 (0.0-0.8) H 12/08/20 09:39 Eosinophils # (Manual) 0.0 K/mm3 (0.0-0.4) 12/08/20 09:39 Basophils # (Manual) 0.0 K/mm3 (0.0-0.1) 12/08/20 09:39 Metamyelocytes # 0.0 K/mm3 12/08/20 09:39 Myelocytes # 0.0 K/mm3 12/08/20 09:39 Promyelocytes # 0.0 K/mm3 12/08/20 09:39 Blast Cells # 0.0 K/mm3 12/08/20 09:39 WBC Morphology Not Reportable 12/08/20 09:39 WBC Morphology TNR 12/08/20 09:39 Hypersegmented Neuts Not Reportable 12/08/20 09:39 Hyposegmented Neuts Not Reportable 12/08/20 09:39 Hypogranular Neuts Not Reportable 12/08/20 09:39 Smudge Cells Not Reportable 12/08/20 09:39 Toxic Granulation Not Reportable 12/08/20 09:39 Toxic Vacuolation Not Reportable 12/08/20 09:39 Dohle Bodies Not Reportable 12/08/20 09:39 Pelger-Huet Anomaly Not Reportable 12/08/20 09:39 Aiden Rods Not Reportable 12/08/20 09:39 Platelet Estimate Not Reportable 12/08/20 09:39 Clumped Platelets Not Reportable 12/08/20 09:39 Plt Clumps, EDTA Not Reportable 12/08/20 09:39 Large Platelets Not Reportable 12/08/20 09:39 Giant Platelets Not Reportable 12/08/20 09:39 Platelet Satelliting Not Reportable 12/08/20 09:39 Plt Morphology Comment Not Reportable 12/08/20 09:39 RBC Morphology Not Reportable 12/08/20 09:39 Dimorphic RBCs Not Reportable 12/08/20 09:39 Polychromasia Not Reportable 12/08/20 09:39 Hypochromasia Not Reportable 12/08/20 09:39 Poikilocytosis Not Reportable 12/08/20 09:39 Anisocytosis 1+ 12/08/20 09:39 Microcytosis Not Reportable 12/08/20 09:39 Macrocytosis Not Reportable 12/08/20 09:39 Spherocytes Not Reportable 12/08/20 09:39 Pappenheimer Bodies Not Reportable 12/08/20 09:39 Sickle Cells Not Reportable 12/08/20 09:39 Target Cells Not Reportable 12/08/20 09:39 Tear Drop Cells Not Reportable 12/08/20 09:39 Ovalocytes Not Reportable 12/08/20 09:39 Stomatocytes Few 12/04/20 19:01 Helmet Cells Not Reportable 12/08/20 09:39 Lux-Millbrook Bodies Not Reportable 12/08/20 09:39 Alviso Rings Not Reportable 12/08/20 09:39 Stevie Cells Not Reportable 12/08/20 09:39 Bite Cells Not Reportable 12/08/20 09:39 Crenated Cell Not Reportable 12/08/20 09:39 Elliptocytes Not Reportable 12/08/20 09:39 Acanthocytes (Spur) Not Reportable 12/08/20 09:39 Rouleaux Not Reportable 12/08/20 09:39 Hemoglobin C Crystals Not Reportable 12/08/20 09:39 Schistocytes Not Reportable 12/08/20 09:39 Malaria parasites Not Reportable 12/08/20 09:39 Florin Bodies Not Reportable 12/08/20 09:39 Hem Pathologist Commnt No 12/08/20 09:39 PT 15.8 Sec. (12.2-14.9) H 12/01/20 05:53 INR 1.21 (0.87-1.13) H 12/01/20 05:53 APTT 33.7 Sec. (24.2-36.6) 12/01/20 05:53 D-Dimer 1767.06 ng/mlDDU (0-234) H 11/19/20 16:44 ABG pH 7.454 (7.320-7.450) H 11/28/20 17:47 POC ABG pCO2 25.8 mmHg (32.0-48.0) L 11/28/20 17:47 POC ABG pO2 65.5 mmHg (83-108) L 11/28/20 17:47 POC ABG HCO3 17.7 11/28/20 17:47 ABG O2 Saturation 94.3 (0-100) 11/28/20 17:47 POC ABG Base Excess -5.5 11/28/20 17:47 ABG Hemoglobin 7.0 (12.0-17.5) L 11/28/20 17:47 ABG Oxyhemoglobin 92.2 (94-98) L 11/28/20 17:47 ABG Methemoglobin 0.3 (0.0-1.5) 11/28/20 17:47 ABG Sodium 143.6 mmol/L (136.0-145.0) 11/28/20 17:47 ABG Potassium 3.6 mmol/L (3.40-4.50) 11/28/20 17:47 ABG Chloride 117.0 mmol/L (98-107) H 11/28/20 17:47 ABG Glucose 104 mg/dL (65-95) H 11/28/20 17:47 Carboxyhemoglobin 1.9 (0.5-1.5) H 11/28/20 17:47 FiO2 % 21.0 11/28/20 17:47 Sodium 138 mmol/L (137-145) 12/13/20 08:10 Potassium 3.6 mmol/L (3.6-5.0) 12/13/20 08:10 Chloride 98.6 mmol/L (98-107) 12/13/20 08:10 Carbon Dioxide 30 mmol/L (22-30) 12/13/20 08:10 Anion Gap 13 mmol/L 12/13/20 08:10 BUN 8 mg/dL (9-20) L 12/13/20 08:10 Creatinine 0.6 mg/dL (0.8-1.3) L 12/13/20 08:10 Estimated GFR > 60 ml/min 12/13/20 08:10 BUN/Creatinine Ratio 13 % 12/13/20 08:10 Glucose 84 mg/dL (75-100) 12/13/20 08:10 POC Glucose 90 mg/dL (70-105) 12/10/20 17:10 Lactic Acid 3.10 mmol/L (0.7-2.0) H* 11/19/20 18:28 Calcium 7.9 mg/dL (8.4-10.2) L 12/13/20 08:10 Phosphorus 2.60 mg/dL (2.5-4.5) 12/07/20 05:49 Magnesium 1.40 mg/dL (1.7-2.3) L 12/07/20 05:49 Total Bilirubin 0.40 mg/dL (0.1-1.2) 12/09/20 04:08 Direct Bilirubin 0.2 mg/dL (0-0.2) 11/19/20 16:44 Indirect Bilirubin 0.3 mg/dL 11/19/20 16:44 AST 12 units/L (5-40) 12/09/20 04:08 ALT < 5 units/L (7-56) L 12/09/20 04:08 Alkaline Phosphatase 111 units/L (35-129) 12/09/20 04:08 Total Creatine Kinase 26 units/L (55-170) L 11/19/20 16:44 CK-MB (CK-2) < 1.0 ng/mL (0.0-4.0) 11/19/20 16:44 CK-MB (CK-2) Rel Index 3.8 (0-4) 11/19/20 16:44 Troponin T < 0.010 ng/mL (0.00-0.029) 11/19/20 22:51 NT-Pro-B Natriuret Pep 454.0 pg/mL (0-900) 11/19/20 16:44 Total Protein 5.4 g/dL (6.3-8.2) L 12/09/20 04:08 Albumin 1.4 g/dL (3.9-5) L 12/09/20 04:08 Albumin/Globulin Ratio 0.4 % 12/09/20 04:08 Amylase 52 units/L (27-131) 12/04/20 03:52 Lipase > 6000 units/L (13-60) H 12/02/20 22:38 Arterial Blood Glucose 104 mg/dL (65-95) H 11/28/20 17:47 Arterial Blood Ionized Calcium 4.5 mg/dL (4.6-5.3) L 11/28/20 17:47 Urine Color Yellow (Yellow) 12/01/20 18:45 Urine Turbidity Clear (Clear) 12/01/20 18:45 Urine pH 6.0 (5.0-7.0) 12/01/20 18:45 Ur Specific [place] 1.036 (1.003-1.030) H 12/01/20 18:45 Urine Protein <15 mg/dl mg/dL (Negative) 12/01/20 18:45 Urine Glucose (UA) Neg mg/dL (Negative) 12/01/20 18:45 Urine Ketones Neg mg/dL (Negative) 12/01/20 18:45 Urine Blood Neg (Negative) 12/01/20 18:45 Urine Nitrite Neg (Negative) 12/01/20 18:45 Urine Bilirubin Neg (Negative) 12/01/20 18:45 Urine Urobilinogen < 2.0 mg/dL (<2.0) 12/01/20 18:45 Ur Leukocyte Esterase Tr (Negative) 12/01/20 18:45 Urine WBC (Auto) 3.0 /HPF (0.0-6.0) 12/01/20 18:45 Urine RBC (Auto) 1.0 /HPF (0.0-6.0) 12/01/20 18:45 U Epithel Cells (Auto) < 1.0 /HPF (0-13.0) 12/01/20 18:45 Urine Bacteria (Auto) 1+ /HPF (Negative) 11/19/20 19:18 Hyaline Casts 1 /LPF 11/19/20 19:18 Urine Mucus Few /HPF 12/01/20 18:45 Urine Creatinine 0.8 mg/dL (0.1-20.0) 12/02/20 22:38 Fluid Amylase 43715 12/02/20 22:38 Nasal Screen MRSA (PCR) Negative (Negative) 11/20/20 Unknown Urine Opiates Screen Negative 11/19/20 19:18 Urine Methadone Screen Negative 11/19/20 19:18 Ur Barbiturates Screen Negative 11/19/20 19:18 Ur Phencyclidine Scrn Negative 11/19/20 19:18 Ur Amphetamines Screen Negative 11/19/20 19:18 U Benzodiazepines Scrn Negative 11/19/20 19:18 Urine Cocaine Screen Negative 11/19/20 19:18 U Marijuana (THC) Screen Negative 11/19/20 19:18 Drugs of Abuse Note Disclamer 11/19/20 19:18 Coronavirus (PCR) Negative (Negative) 11/27/20 08:45 Blood Type O POSITIVE 11/30/20 15:00 Antibody Screen Negative 11/30/20 15:00 Crossmatch See Detail 11/30/20 15:00 Viramontes/IV: Voiding Method Condom Catheter Active Medications - Current Medications Current Medications: Generic Name Dose Route Start Last Admin Trade Name Freq PRN Reason Stop Dose Admin Acetaminophen 650 mg 11/20/20 14:00 12/13/20 03:42 Acetaminophen 325 Mg Tab PO 650 mg Q6H PRN Administration Pain, Mild (1-3) Albuterol 2.5 mg 11/30/20 12:00 Albuterol 2.5 Mg/3 Ml Nebu IH Q4HRT PRN Shortness Of Breath Bisacodyl 5 mg 12/04/20 18:45 Bisacodyl 5 Mg Tab PO QDAY PRN Constipation Folic Acid 1 mg 11/20/20 10:00 12/13/20 10:57 Folic Acid 1 Mg Tab PO Not Given QDAY [facility] Furosemide 40 mg 12/11/20 10:00 12/13/20 10:57 Furosemide 40 Mg/4 Ml Inj IV Not Given QDAY [facility] Hydralazine HCl 10 mg 11/19/20 18:18 Hydralazine 20 Mg/1 Ml Inj IV Q4HR PRN Hypertension Piperacillin Sod/Tazobactam Sod 4.5 gm in 100 mls @ 200 mls/hr 12/03/20 15:00 12/14/20 02:34 Zosyn/Ns 4.5gm/100ml IV 200 mls/hr Q6H JANNETH Administration Protocol Lorazepam 2 mg 11/27/20 12:30 12/02/20 23:05 Lorazepam 2 Mg/Ml Vial IV 2 mg Q4H PRN Administration Agitation Losartan Potassium 100 mg 11/20/20 10:00 12/13/20 10:56 Losartan 50 Mg Tab PO Not Given QDAY [facility] Metoprolol Tartrate 12.5 mg 11/28/20 22:00 12/13/20 21:10 Metoprolol Tartrate 25 Mg Tab PO 12.5 mg BID [facility] Administration Morphine Sulfate 2 mg 12/06/20 09:30 12/13/20 16:59 Morphine 2 Mg/1 Ml Inj IV 2 mg Q8H PRN Administration Pain, Moderate (4-6) Ondansetron HCl 4 mg 11/19/20 18:11 12/12/20 14:44 Ondansetron 4 Mg/2 Ml Inj IV 4 mg Q8H PRN Administration Nausea And Vomiting Oxycodone/Acetaminophen 1 tab 12/06/20 10:00 12/14/20 06:13 Oxycodone /Acetaminophen 5-325mg Tab PO 1 tab Q6H PRN Administration Pain, Moderate (4-6) Pantoprazole Sodium 40 mg 12/04/20 07:30 12/13/20 10:56 Pantoprazole 40 Mg Tab PO Not Given QDAC JANNETH Sodium Chloride 10 ml 11/19/20 22:00 12/13/20 21:14 Sodium Chloride 0.9% 10 Ml Flush Syringe IV 10 ml BID JANNETH Administration Sodium Chloride 10 ml 11/19/20 19:11 11/30/20 18:37 Sodium Chloride 0.9% 10 Ml Flush Syringe IV 10 ml PRN PRN Administration LINE FLUSH Nutrition/Malnutrition Assess - Dietary Evaluation Nutrition/Malnutrition Findings: Nutrition Notes Start: 11/20/20 12:00 Freq: Status: Active Protocol: Document 12/12/20 12:57 MK (Rec: 12/12/20 13:00 MK [id number]) Nutrition Notes Initial or Follow up Reassessment Current Diagnosis Sepsis,Hypertension, Hyperlipidemia Other Pertinent Diagnosis Acute alcoholic pancreatitis, EtOH withdrawal delirium, ARF, GERD Current Diet Cardiac Labs/Tests Reviewed Pertinent Medications Lasix Height 5 ft 10 in Weight 86.6 kg [place] Body Weight (kg) 75.45 BMI 27.3 Weight change and time frame wt fluctuations Weight Status Overweight Subjective/Other Information FU for intakes. Pt reports not able to eat much fod. He is drinking 2 ONS daily. He states he could drink 3 daily. Percent of energy/protein needs met: 35%/49% Burn Absent Trauma Absent Current % PO Negligible Minimum of two criteria No Energy Intake (severe) < or equal to 50% Estimated Energy Requirement > or equal to 5 days #2 Nutrition Diagnosis Inadequate oral intake As Evidenced by Signs and Symptoms pt meeting 35%/49% of needs Diagnosis Progress(for reassessment Improved documentation) Is patient on ventilator? No Is Patient Ambulatory and/or Out of Bed No REE-(Jenkins-St. Jeor-confined to bed) 2022.416 Calculation Used [facility] Recommendations [facility] Additional Notes Pro needs 1-1.2g/k-98g/ day Fluid needs 1ml/kcal Nutrition Intervention Change Diet Order: Continue current diet as ordered Add Supplement/Snack (indicate name/kcal Ensure Enlive TID /protein ) Provides kCal: 1,050 Provides Protein (gm) 60 Goal #1 Meet at least 75% of energy and protein needs Anticipated Discharge Needs: CHO-controlled, low fat diet Follow-Up By: 12/16/20 Additional Comments FU for intakes and ONS tolerance
[2020-12-14] MEDS: FUROSEMIDE 40 MG/4 ML INJ IV SCH (11:20)
[2020-12-14] MEDS: FOLIC ACID 1 MG TAB PO SCH (11:20)
[2020-12-14] MEDS: METOPROLOL TARTRATE 25 MG TAB PO SCH ×2 (11:20→22:22)
[2020-12-14] MEDS: PANTOPRAZOLE 40 MG TAB PO SCH (11:20)
[2020-12-14] MEDS: LOSARTAN 50 MG TAB PO SCH (11:21)
[2020-12-15] MEDS: PIPERACIL/TAZOBACTA 4.5/NS 100 4.5 GM/100 ML VIAL IV SCH (03:49)
[2020-12-15 06:21] LABS: Albumin 2.2 g/dL (3.9-5); Blood Urea Nitrogen 7 mg/dL (9-20); Calcium 8.3 mg/dL (8.4-10.2); Hemolysis Index 1
[2020-12-15 06:22] LABS: BUN/Creatinine Ratio 14
[2020-12-15 06:28] LABS: Alanine Aminotransferase < 5 units/L (7-56)
[2020-12-15] MEDS: oxyCODONE /ACETAMINOPHEN 5-325MG TAB PO PRN ×2 (06:29→19:55)
[2020-12-15 06:33] LABS: Hematocrit 22.2 % (35.5-45.6); Hemoglobin 7.4 gm/dl (11.8-15.2); Mean Corpuscular HGB Conc 33 % (32-34); Mean Corpuscular Volume 79 fl (84-94); Platelet Count 428 K/mm3 (140-440); Red Blood Count 2.83 M/mm3 (3.65-5.03); Red Cell Distribution Width 18.8 % (13.2-15.2)
[2020-12-15] MEDS: METOPROLOL TARTRATE 25 MG TAB PO SCH ×2 (11:38→21:58)
[2020-12-15] MEDS: FOLIC ACID 1 MG TAB PO SCH (11:39)
[2020-12-15] MEDS: PANTOPRAZOLE 40 MG TAB PO SCH (11:39)
--- NOTE | 2020-12-15 12:31 | Progress Note ---
Assessment and Plan Assessment and plan: 60-year-old -[place]i male who presented to [facility] for acute pancreatitis has been diagnosed with multifocal fluid and gas collection in the right pararenal space secondary to pancreatic duct disruption with leakage. --Sepsis secondary to pancreatic duct leak? - Abdominal drain catheter placed on 12/05/2020 by IR Surgical culture growing E. coli Vascular surgery following Infectious disease following, currently on Zosyn antibiotics Repeat CT of abdomen on 12/11/2020 shows multiple encapsulated abdominal fluid collections. Collection has decreased by 50%. Collection now is 7.0 x 4.3 cm. A percutaneous drain has been placed in the right posterior pararenal space. This collection has increased in size from 1 cm to 3.8 cm in greatest thickness. There are few smaller loculated fluid collections near the esophageal hiatus in the medial left subdiaphragmatic space which appears stable. Small to medium perisplenic fluid collections appear decreased by 10% a collection along the right lateral abdominal wall is slightly increased from 3.8x2 0.2 x 5.1 x 3.0 cm. There is a small collection in the left lower quadrant measuring 4.5 x 1.8 cm which appears unchanged. Overall there is no overwhelming change that is claudio reciated since 12/04/[address] scan of the abdomen. Multiple encapsulated fluid collections are still seen in the abdomen some of which have increased in size and some which have decreased in size. 12/12/2020 MRCP abdomen shows pancreatic duct irregularities which could indicate a stricture and duct disruption. GI consulted, they recommend transfer to [facility] for EUS and potential ERCP. process initiated, paperwork pending. 12/13/2020: Abdominal 8 Norwegian drain replaced with a 16 Norwegian all-purpose drain catheter under fluoroscopy --Right renal calyx rupture Large multifocal fluid and gas collections in the right pararenal space: etiology is suspected R renal calyceal rupture causing urinary leak. - Underwent IR drainage 12/02/2020 with about 500 cc of pinkish material drained. - 12/05/2020 CT-guided placement of 8 Norwegian drainage catheter in left upper quadrant fluid collection with 180 mL of purulent urine aspirated Urology following, recommended placement of drains Spoke with urology, creatinine from right flank drain is normal. Most likely not urine. No intervention from urology is required - 12/13/2020: 8 Norwegian drain catheter replaced with right flank 16 Norwegian all- purpose drain catheter placed --Subcapsular splenic collection new, etiology unclear, possibly related to right renal calyx rupture --Mild pleural effusions Lasix --Hypernatremia Resolved --Alcohol withdrawal delirium Current Visit: No Status: Acute Currently on CIWA protocol No signs of withdrawal --Acute /chronic pancreatitis/alcohol related Current Visit: No Status: Acute Currently tolerating diet, no abdominal pain --Acute kidney injury Current Visit: Yes Status: Acute Resolved --Hypertension Current Visit: No Status: Chronic Metoprolol 12.5 mg twice daily Hydralazine 10 mg IV every 4 hours as needed Monitor patient's blood pressure --Nicotine dependence Current Visit: No Status: Chronic Smoking cessation counseling Nicotine patch as needed --VRE UTI/E. coli Current Visit: No Status: Acute Zyvox completed on 12/13/2020 --Severe protein calorie malnutrition Current Visit: No Status: Acute Hypoalbuminemia , albumin 2.8 Nutrition supplements, nutrition consult and supportive care -- Metabolic acidosis Current Visit: Yes Status: Acute Plan to address problem: Secondary to uremia as well as chronic pancreatitis treat underlying etiology. Resolved DVT prophylaxis: SCDs CODE STATUS: Full Disposition: Patient will be transferred to [facility], accepting GI physician is Dr. Winston. Accepting hospitalist is Dr. Boykin. Patient will be transferred on Wednesday, December 16. All records should be printed and imaging should be placed on CDs. This should be transported with the patient. History Interval history: 60-year-old male patient was admitted with alcohol withdrawal symptoms On CIWA protocol patient has E. coli UTI completed treatment with antibiotics COVID-19 test is negative, waiting for placement however on 12/01/2020 Patient developed sudden abdominal pain, CT scan showed multiple loculated collections, sepsis IR Dr. Dugan, urology disposition Home and ID Dr. Garcia was consulted, IR is planning CT-guided aspiration Try to contact daughter Huong Hua, unable to reach left a message and requested to call back 11/20/2020; patient feels slightly better, no significant withdrawal symptoms Patient is on CIWA protocol, stable to be transferred out of [facility] to medical floor 11/21/2020; patient has severe agitation tremulousness, patient is on CIWA protocol Closely monitor withdrawal symptoms, adjust the medications as needed in the morning equal in both upper Advance diet to regular as tolerated. I called patient's mother and also patient's daughter Ms. Huong Hua at [phone] 11/22/2020; Patient continues to be agitated confused mumbling, On CIWA protocol, restraint for safety. E. coli UTI on Zosyn Called again patient's daughter next of kin Ms. Huong Hua at [phone][number obtained from comp field case manager Ms. Vo] Did not worm picker the phone I left a voicemail again today to discuss about Mr. Parada's condition and treatment plan 11/23/2020 Patient continues to be agitated Resumed service 11/26/2020; Patient still has mild alcohol withdrawal symptoms Restraints for safety 11/27/2020; Patient is off CIWA protocol and restraints PT OT evaluated, PT recommending subacute rehab 11/28/2020; today patient has some mild shortness of breath and wheezing Tachycardia heart rate in 100 -110 , alert awake oriented x3 Possible fluid overload, give 1 dose of Lasix IV, checks chest x-ray 11/29/2020; patient is more alert and awake, no shortness of breath No alcohol withdrawal symptoms, pending subacute rehab placemen 11/30/2020; Anemia patient's hemoglobin dropped to 6.9, transfuse 1 unit PRBC Stool for occult blood, GI consult if needed 12/01/2020; stool guaiac negative Hb improved to 8.1, complains of some abdominal pain and discomfort Will check CT abdomen and pelvis Pending placement IAdvised to quit alcohol intake CT abdomen and pelvis multifocal fluid collection IR/urology/ID were consulted, started antibiotics IR recommend CT-guided drainage 12/02/2020; CT-guided drainage pain, tried to contact and next of kin daughter Ms. Huong Hua at [phone][number obtained from comp field case manager Ms. Vo] Did not worm picker the phone, left message to call back 12/03/2020; patient feels slightly better CT-guided drain placement yesterday per IR ID changed antibiotics to Zosyn Reevaluation by PT, recommend subacute rehab DC planning per case management We will discharge to subacute rehab when medically stable 12/04/2020; follow-up CT abdomen and pelvis 12/04/2020 Findings as above, persistent fluid collections in multiple areas 12/05/2020; CT-guided placement of abdominal drainage catheter for right perinephrotic calyceal rupture and intra-abdominal stranding of infected urine. Patient tolerated the procedure well Continue postoperative care All the consultants and recommendations noted and appreciated 12/06/2020; patient feels slightly better, has 2 drains into the pocket intra- abdominal fluid collection Draining well, IR, surgery, ID following 12/07/2020; patient feels slightly better, has 2 drains into the pocket intra- abdominal fluid collection 12/08/20 patient feels slightly better, has 2 drains into the pocket intra-abdominal fluid collection Draining well, IR, surgery, ID following 12/09/20 patient feels slightly better, has 2 drains into the pocket intra-abdominal fluid collection Draining well, IR, surgery, ID following 12/10/2020: Patient seen and examined, states that he is improved, does have some crackles in his lungs, somewhat difficult to breathe. No fevers or chills overnight. Continues on antibiotics. . 12/11/2020: Patient seen and examined, states that his breathing is improved somewhat. Start patient on Lasix. CT of abdomen reviewed, fluid collections persist. 12/12/2020: Patient seen and examined, continues to have minimal abdominal and f lank pain. No acute distress 12/13/2020: Patient seen and examined, working with PT. Continues to have mild pain. Minimal drainage from drains. 12/14/2020: Drains replaced yesterday per vascular surgery. Patient continues to have abdominal pain. 12/14/2020: No overnight events, patient afebrile, pain is better controlled today, continues to have abdominal pain when trying to eat solid foods. Hospitalist Physical - Physical exam Narrative exam: General appearance: no acute distress, well-nourished EENT: PERRL, EOM intact, hearing intact, clear oral mucosa, poor dentition Neck: Present: supple, normal ROM Respiratory: Lungs clear to auscultation, no rales or rhonchi heard bilaterally Cardiovascular: Regular rate/rhythm, Normal S1 & S2. No gallop, rub Extremities: no ischemia, No edema, normal temperature, normal color, Full ROM Abdominal: Abdominal drain with thick 30 cc drainage, flank drain with serous ROM drainage, about 30 cc abdomen soft, no tenderness, non-distended Integumentary: Present: clear, warm, dry no wounds, no erythema noted Psychiatric: appropriate mood/affect, intact judgment & insight Neurologic: CNII-XII intact, moves all extremities, no sensory or motor abnormalities - Constitutional Vitals: Temp Pulse Resp BP Pulse Ox 98.6 F 80 16 110/63 96 12/15/20 10:31 12/15/20 11:38 12/15/20 10:31 12/15/20 10:31 12/15/20 10:31 HEART Score - HEART Score Troponin: Troponin T < 0.010 ng/mL (0.00-0.029) 11/19/20 22:51 Results - Labs CBC & Chem 7: 12/15/20 05:22 12/15/20 05:22 Labs: Laboratory Last Values WBC 7.7 K/mm3 (4.5-11.0) 12/15/20 05:22 RBC 2.83 M/mm3 (3.65-5.03) L 12/15/20 05:22 Hgb 7.4 gm/dl (11.8-15.2) L 12/15/20 05:22 Hct 22.2 % (35.5-45.6) L 12/15/20 05:22 MCV 79 fl (84-94) L 12/15/20 05:22 MCH 26 pg (28-32) L 12/15/20 05:22 MCHC 33 % (32-34) 12/15/20 05:22 RDW 18.8 % (13.2-15.2) H 12/15/20 05:22 Plt Count 428 K/mm3 (140-440) 12/15/20 05:22 Lymph % (Auto) 11.8 % (13.4-35.0) L 12/09/20 04:08 [place] % (Auto) 10.8 % (0.0-7.3) H 12/09/20 04:08 Eos % (Auto) 0.3 % (0.0-4.3) 12/09/20 04:08 Baso % (Auto) 0.6 % (0.0-1.8) 12/09/20 04:08 Lymph # (Auto) 1.6 K/mm3 (1.2-5.4) 12/09/20 04:08 [place] # (Auto) 1.4 K/mm3 (0.0-0.8) H 12/09/20 04:08 Eos # (Auto) 0.0 K/mm3 (0.0-0.4) 12/09/20 04:08 Baso # (Auto) 0.1 K/mm3 (0.0-0.1) 12/09/20 04:08 Add Manual Diff Complete 12/08/20 09:39 Total Counted 100 12/08/20 09:39 Seg Neutrophils % 76.5 % (40.0-70.0) H 12/09/20 04:08 Seg Neuts % (Manual) 73.0 % (40.0-70.0) H 12/08/20 09:39 Band Neutrophils % 2.0 % 12/08/20 09:39 Lymphocytes % (Manual) 16.0 % (13.4-35.0) 12/08/20 09:39 Reactive Lymphs % (Man) 1.0 % 12/07/20 05:49 Monocytes % (Manual) 9.0 % (0.0-7.3) H 12/08/20 09:39 Eosinophils % (Manual) 1.0 % (0.0-4.3) 12/04/20 19:01 Metamyelocytes % 3.0 % 12/07/20 05:49 Myelocytes % 2.0 % 12/02/20 07:01 Nucleated RBC % Not Reportable 12/08/20 09:39 Seg Neutrophils # 10.0 K/mm3 (1.8-7.7) H 12/09/20 04:08 Seg Neutrophils # Man 9.9 K/mm3 (1.8-7.7) H 12/08/20 09:39 Band Neutrophils # 0.3 K/mm3 12/08/20 09:39 Lymphocytes # (Manual) 2.2 K/mm3 (1.2-5.4) 12/08/20 09:39 Abs React Lymphs (Man) 0.0 K/mm3 12/08/20 09:39 Monocytes # (Manual) 1.2 K/mm3 (0.0-0.8) H 12/08/20 09:39 Eosinophils # (Manual) 0.0 K/mm3 (0.0-0.4) 12/08/20 09:39 Basophils # (Manual) 0.0 K/mm3 (0.0-0.1) 12/08/20 09:39 Metamyelocytes # 0.0 K/mm3 12/08/20 09:39 Myelocytes # 0.0 K/mm3 12/08/20 09:39 Promyelocytes # 0.0 K/mm3 12/08/20 09:39 Blast Cells # 0.0 K/mm3 12/08/20 09:39 WBC Morphology Not Reportable 12/08/20 09:39 WBC Morphology TNR 12/08/20 09:39 Hypersegmented Neuts Not Reportable 12/08/20 09:39 Hyposegmented Neuts Not Reportable 12/08/20 09:39 Hypogranular Neuts Not Reportable 12/08/20 09:39 Smudge Cells Not Reportable 12/08/20 09:39 Toxic Granulation Not Reportable 12/08/20 09:39 Toxic Vacuolation Not Reportable 12/08/20 09:39 Dohle Bodies Not Reportable 12/08/20 09:39 Pelger-Huet Anomaly Not Reportable 12/08/20 09:39 Aiden Rods Not Reportable 12/08/20 09:39 Platelet Estimate Not Reportable 12/08/20 09:39 Clumped Platelets Not Reportable 12/08/20 09:39 Plt Clumps, EDTA Not Reportable 12/08/20 09:39 Large Platelets Not Reportable 12/08/20 09:39 Giant Platelets Not Reportable 12/08/20 09:39 Platelet Satelliting Not Reportable 12/08/20 09:39 Plt Morphology Comment Not Reportable 12/08/20 09:39 RBC Morphology Not Reportable 12/08/20 09:39 Dimorphic RBCs Not Reportable 12/08/20 09:39 Polychromasia Not Reportable 12/08/20 09:39 Hypochromasia Not Reportable 12/08/20 09:39 Poikilocytosis Not Reportable 12/08/20 09:39 Anisocytosis 1+ 12/08/20 09:39 Microcytosis Not Reportable 12/08/20 09:39 Macrocytosis Not Reportable 12/08/20 09:39 Spherocytes Not Reportable 12/08/20 09:39 Pappenheimer Bodies Not Reportable 12/08/20 09:39 Sickle Cells Not Reportable 12/08/20 09:39 Target Cells Not Reportable 12/08/20 09:39 Tear Drop Cells Not Reportable 12/08/20 09:39 Ovalocytes Not Reportable 12/08/20 09:39 Stomatocytes Few 12/04/20 19:01 Helmet Cells Not Reportable 12/08/20 09:39 Lux-[place] Bodies Not Reportable 12/08/20 09:39 [place] Rings Not Reportable 12/08/20 09:39 Stevie Cells Not Reportable 12/08/20 09:39 Bite Cells Not Reportable 12/08/20 09:39 Crenated Cell Not Reportable 12/08/20 09:39 Elliptocytes Not Reportable 12/08/20 09:39 Acanthocytes (Spur) Not Reportable 12/08/20 09:39 Rouleaux Not Reportable 12/08/20 09:39 Hemoglobin C Crystals Not Reportable 12/08/20 09:39 Schistocytes Not Reportable 12/08/20 09:39 Malaria parasites Not Reportable 12/08/20 09:39 Florin Bodies Not Reportable 12/08/20 09:39 Hem Pathologist Commnt No 12/08/20 09:39 PT 15.8 Sec. (12.2-14.9) H 12/01/20 05:53 INR 1.21 (0.87-1.13) H 12/01/20 05:53 APTT 33.7 Sec. (24.2-36.6) 12/01/20 05:53 D-Dimer 1767.06 ng/mlDDU (0-234) H 11/19/20 16:44 ABG pH 7.454 (7.320-7.450) H 11/28/20 17:47 POC ABG pCO2 25.8 mmHg (32.0-48.0) L 11/28/20 17:47 POC ABG pO2 65.5 mmHg (83-108) L 11/28/20 17:47 POC ABG HCO3 17.7 11/28/20 17:47 ABG O2 Saturation 94.3 (0-100) 11/28/20 17:47 POC ABG Base Excess -5.5 11/28/20 17:47 ABG Hemoglobin 7.0 (12.0-17.5) L 11/28/20 17:47 ABG Oxyhemoglobin 92.2 (94-98) L 11/28/20 17:47 ABG Methemoglobin 0.3 (0.0-1.5) 11/28/20 17:47 ABG Sodium 143.6 mmol/L (136.0-145.0) 11/28/20 17:47 ABG Potassium 3.6 mmol/L (3.40-4.50) 11/28/20 17:47 ABG Chloride 117.0 mmol/L (98-107) H 11/28/20 17:47 ABG Glucose 104 mg/dL (65-95) H 11/28/20 17:47 Carboxyhemoglobin 1.9 (0.5-1.5) H 11/28/20 17:47 FiO2 % 21.0 11/28/20 17:47 Sodium 136 mmol/L (137-145) L 12/15/20 05:22 Potassium 3.3 mmol/L (3.6-5.0) L 12/15/20 05:22 Chloride 99.0 mmol/L (98-107) 12/15/20 05:22 Carbon Dioxide 29 mmol/L (22-30) 12/15/20 05:22 Anion Gap 11 mmol/L 12/15/20 05:22 BUN 7 mg/dL (9-20) L 12/15/20 05:22 Creatinine 0.5 mg/dL (0.8-1.3) L 12/15/20 05:22 Estimated GFR > 60 ml/min 12/15/20 05:22 BUN/Creatinine Ratio 14 % 12/15/20 05:22 Glucose 87 mg/dL (75-100) 12/15/20 05:22 POC Glucose 90 mg/dL (70-105) 12/10/20 17:10 Lactic Acid 3.10 mmol/L (0.7-2.0) H* 11/19/20 18:28 Calcium 8.3 mg/dL (8.4-10.2) L 12/15/20 05:22 Phosphorus 2.60 mg/dL (2.5-4.5) 12/07/20 05:49 Magnesium 1.40 mg/dL (1.7-2.3) L 12/07/20 05:49 Total Bilirubin 0.50 mg/dL (0.1-1.2) 12/15/20 05:22 Direct Bilirubin 0.2 mg/dL (0-0.2) 11/19/20 16:44 Indirect Bilirubin 0.3 mg/dL 11/19/20 16:44 AST 9 units/L (5-40) 12/15/20 05:22 ALT < 5 units/L (7-56) L 12/15/20 05:22 Alkaline Phosphatase 113 units/L (35-129) 12/15/20 05:22 Total Creatine Kinase 26 units/L (55-170) L 11/19/20 16:44 CK-MB (CK-2) < 1.0 ng/mL (0.0-4.0) 11/19/20 16:44 CK-MB (CK-2) Rel Index 3.8 (0-4) 11/19/20 16:44 Troponin T < 0.010 ng/mL (0.00-0.029) 11/19/20 22:51 NT-Pro-B Natriuret Pep 454.0 pg/mL (0-900) 11/19/20 16:44 Total Protein 5.7 g/dL (6.3-8.2) L 12/15/20 05:22 Albumin 2.2 g/dL (3.9-5) L 12/15/20 05:22 Albumin/Globulin Ratio 0.6 % 12/15/20 05:22 Amylase 52 units/L (27-131) 12/04/20 03:52 Lipase > 6000 units/L (13-60) H 12/02/20 22:38 Arterial Blood Glucose 104 mg/dL (65-95) H 11/28/20 17:47 Arterial Blood Ionized Calcium 4.5 mg/dL (4.6-5.3) L 11/28/20 17:47 Urine Color Yellow (Yellow) 12/01/20 18:45 Urine Turbidity Clear (Clear) 12/01/20 18:45 Urine pH 6.0 (5.0-7.0) 12/01/20 18:45 Ur Specific [place] 1.036 (1.003-1.030) H 12/01/20 18:45 Urine Protein <15 mg/dl mg/dL (Negative) 12/01/20 18:45 Urine Glucose (UA) Neg mg/dL (Negative) 12/01/20 18:45 Urine Ketones Neg mg/dL (Negative) 12/01/20 18:45 Urine Blood Neg (Negative) 12/01/20 18:45 Urine Nitrite Neg (Negative) 12/01/20 18:45 Urine Bilirubin Neg (Negative) 12/01/20 18:45 Urine Urobilinogen < 2.0 mg/dL (<2.0) 12/01/20 18:45 Ur Leukocyte Esterase Tr (Negative) 12/01/20 18:45 Urine WBC (Auto) 3.0 /HPF (0.0-6.0) 12/01/20 18:45 Urine RBC (Auto) 1.0 /HPF (0.0-6.0) 12/01/20 18:45 U Epithel Cells (Auto) < 1.0 /HPF (0-13.0) 12/01/20 18:45 Urine Bacteria (Auto) 1+ /HPF (Negative) 11/19/20 19:18 Hyaline Casts 1 /LPF 11/19/20 19:18 Urine Mucus Few /HPF 12/01/20 18:45 Urine Creatinine 0.8 mg/dL (0.1-20.0) 12/02/20 22:38 Fluid Amylase 67880 12/02/20 22:38 Nasal Screen MRSA (PCR) Negative (Negative) 11/20/20 Unknown Urine Opiates Screen Negative 11/19/20 19:18 Urine Methadone Screen Negative 11/19/20 19:18 Ur Barbiturates Screen Negative 11/19/20 19:18 Ur Phencyclidine Scrn Negative 11/19/20 19:18 Ur Amphetamines Screen Negative 11/19/20 19:18 U Benzodiazepines Scrn Negative 11/19/20 19:18 Urine Cocaine Screen Negative 11/19/20 19:18 U Marijuana (THC) Screen Negative 11/19/20 19:18 Drugs of Abuse Note Disclamer 11/19/20 19:18 Coronavirus (PCR) Negative (Negative) 11/27/20 08:45 Blood Type O POSITIVE 11/30/20 15:00 Antibody Screen Negative 11/30/20 15:00 Crossmatch See Detail 11/30/20 15:00 Microbiology: Microbiology 12/13/20 14:50 Abdomen Surgical Culture - Preliminary Escherichia Coli 12/13/20 15:06 Abdomen Surgical Culture - Preliminary Escherichia Coli Viramontes/IV: Voiding Method Condom Catheter Active Medications - Current Medications Current Medications: Generic Name Dose Route Start Last Admin Trade Name Freq PRN Reason Stop Dose Admin Acetaminophen 650 mg 11/20/20 14:00 12/13/20 03:42 Acetaminophen 325 Mg Tab PO 650 mg Q6H PRN Administration Pain, Mild (1-3) Albuterol 2.5 mg 11/30/20 12:00 Albuterol 2.5 Mg/3 Ml Nebu IH Q4HRT PRN Shortness Of Breath Bisacodyl 5 mg 12/04/20 18:45 Bisacodyl 5 Mg Tab PO QDAY PRN Constipation Folic Acid 1 mg 11/20/20 10:00 12/15/20 11:39 Folic Acid 1 Mg Tab PO 1 mg QDAY JANNETH Administration Hydralazine HCl 10 mg 11/19/20 18:18 Hydralazine 20 Mg/1 Ml Inj IV Q4HR PRN Hypertension Piperacillin Sod/Tazobactam Sod 4.5 gm in 100 mls @ 200 mls/hr 12/03/20 15:00 12/15/20 03:49 Zosyn/Ns 4.5gm/100ml IV 200 mls/hr Q6H JANNETH Administration Protocol Lorazepam 2 mg 11/27/20 12:30 12/02/20 23:05 Lorazepam 2 Mg/Ml Vial IV 2 mg Q4H PRN Administration Agitation Metoprolol Tartrate 12.5 mg 11/28/20 22:00 12/15/20 11:38 Metoprolol Tartrate 25 Mg Tab PO 12.5 mg BID JANNETH Administration Morphine Sulfate 2 mg 12/06/20 09:30 12/13/20 16:59 Morphine 2 Mg/1 Ml Inj IV 2 mg Q8H PRN Administration Pain, Moderate (4-6) Ondansetron HCl 4 mg 11/19/20 18:11 12/12/20 14:44 Ondansetron 4 Mg/2 Ml Inj IV 4 mg Q8H PRN Administration Nausea And Vomiting Oxycodone/Acetaminophen 2 tab 12/14/20 08:31 12/15/20 06:29 Oxycodone /Acetaminophen 5-325mg Tab PO 2 tab Q6H PRN Administration Pain, Moderate (4-6) Pantoprazole Sodium 40 mg 12/04/20 07:30 12/15/20 11:39 Pantoprazole 40 Mg Tab PO 40 mg QDAC JANNETH Administration Sodium Chloride 10 ml 11/19/20 22:00 12/15/20 11:39 Sodium Chloride 0.9% 10 Ml Flush Syringe IV 10 ml BID JANNETH Administration Sodium Chloride 10 ml 11/19/20 19:11 11/30/20 18:37 Sodium Chloride 0.9% 10 Ml Flush Syringe IV 10 ml PRN PRN Administration LINE FLUSH Nutrition/Malnutrition Assess - Dietary Evaluation Nutrition/Malnutrition Findings: Nutrition Notes Start: 11/20/20 12:00 Freq: Status: Active Protocol: Document 12/12/20 12:57 (Rec: 12/12/20 13:00 [email or web address]) Nutrition Notes Initial or Follow up Reassessment Current Diagnosis Sepsis,Hypertension, Hyperlipidemia Other Pertinent Diagnosis Acute alcoholic pancreatitis, EtOH withdrawal delirium, ARF, GERD Current Diet Cardiac Labs/Tests Reviewed Pertinent Medications Lasix Height 5 ft 10 in Weight 86.6 kg [place] Body Weight (kg) 75.45 BMI 27.3 Weight change and time frame wt fluctuations Weight Status Overweight Subjective/Other Information FU for intakes. Pt reports not able to eat much fod. He is drinking 2 ONS daily. He states he could drink 3 daily. Percent of energy/protein needs met: 35%/49% Burn Absent Trauma Absent Current % PO Negligible Minimum of two criteria No Energy Intake (severe) < or equal to 50% Estimated Energy Requirement > or equal to 5 days #2 Nutrition Diagnosis Inadequate oral intake As Evidenced by Signs and Symptoms pt meeting 35%/49% of needs Diagnosis Progress(for reassessment Improved documentation) Is patient on ventilator? No Is Patient Ambulatory and/or Out of Bed No REE-([place]-St Jeor-confined to bed) 2022.416 Calculation [facility] Additional Notes Pro needs 1-1.2g/k-98g/ day Fluid needs 1ml/kcal Nutrition Intervention Change Diet Order: Continue current diet as ordered Add Supplement/Snack (indicate name/kcal Ensure Enlive TID /protein ) Provides kCal: 1,050 Provides Protein (gm) 60 Goal #1 Meet at least 75% of energy and protein needs Anticipated Discharge Needs: CHO-controlled, low fat diet Follow-Up By: 12/16/20 Additional Comments FU for intakes and ONS tolerance
--- NOTE | 2020-12-15 13:18 | Progress Note ---
Assessment and Plan Cultures: 11/27/2020 COVID-19 PCR: Negative 11/19/2020 blood culture: No growth 11/19/2020 urine culture: E. coli 12/01/2020 blood culture: No growth 12/01/2020 urine culture: Enterococcus faecium (VRE) 12/02/2020 IR drainage culture: E.coli 12/05/2020 LUQ drainage cultures: E.coli 12/13/2020 LUQ drainage cultures: MDR E.coli resistant to zosyn, amp, FQ, A/P: 60-year-old male with gastroesophageal reflux disease, hypertension, hyperlipidemia, alcohol abuse admitted to the hospital on 11/19/2020 with ab dominal pain from suspected pancreatitis and alcohol withdrawal: #Sepsis: Source: large multifocal fluid and gas collections in the abdomen. #Large multifocal infected pancreatic pseudocyst: etiology initially was suspected R renal calyceal rupture causing urinary leak v/s infected pancreatic pseudocyst. Urology evaluated and IR following. Underwent IR drainage 12/02/2020 with about 500 cc of pinkish material drained. Additional CT-guided placement of 8 Thai drainage catheter in left upper quadrant fluid collection with 180 mL of purulent urine aspirated on 12/05/2020. Repeat CT on 12/11/2020 with multiple encapsulated fluid collections, some decreased while some increased. Suspected pancreatic pseudocyst due to pancreatic duct disruption, noted on abdominal MRI. Fluid amylase was high. S/p Fluoroscopic guided evaluation and exchange of posterior drainage catheter with a total of 50 mL of additional obtained purulent fluid aspirated. Also, Fluoroscopic guided advanced duration and exchange of anterior drainage catheter with a total of 60 mL of additional purulent fluid aspirated. 12/13/2020 LUQ drainage cultures: MDR E.coli resistant to zosyn, amp, FQ, cefazolin. #Subcapsular splenic collection: new, etiology unclear, likely related to above. #Acute alcohol withdrawal, chronic alcohol abuse #JOHN: Resolved #VRE UTI: s/p abx. Zyvox for UTI completed Recs: -Stop Zosyn, D14 (MDR E coli resistant to zosyn) -Start meropenem 2 g IV q 8 hours, duration probably 3 to 4 weeks -serial CRP -Procal x 1 Norma Garcia MD [facility] ([facility]) Office [phone] Subjective Date of service: 12/15/20 Principal diagnosis: Sepsis Interval history: Patient feels better. Reports abdominal pain improving. No fever. Denies any nausea vomiting diarrhea. Objective - Exam Narrative Exam: General appearance: Alert in NAD pleasant Eyes: anicteric sclerae, moist conjunctivae; no lid-lag; PERRLA HENT: Normocephalic, Atraumatic; normal external ears, nares open, oropharynx clear with moist mucous membranes and no oral thrush Neck: supple, tracheal midline, no JVD Lungs: CTA, with normal respiratory effort and no intercostal retractions CV: RRR no murmur Abdomen: Soft, non-tender; drain with copious purulence Extremities: no edema, no cyanosis Skin: No rash. Psych: no agitated Neuro: alert and oriented x 3. Moving all extermities - Constitutional Vitals: Vital Signs Temp Pulse Resp BP Pulse Ox 98.6 F 80 16 110/63 96 12/15/20 10:31 12/15/20 11:38 12/15/20 10:31 12/15/20 10:31 12/15/20 10:31 Temperature -Last 24 Hours Temperature 98.6 F Temperature 98.6 F Temperature 99.7 F Temperature 98.6 F - Labs CBC & Chem 7: 12/15/20 05:22 12/15/20 05:22 Labs: Abnormal lab results 12/15/20 12/15/20 Range/Units 05:22 05:22 RBC 2.83 L (3.65-5.03) M/mm3 Hgb 7.4 L (11.8-15.2) gm/dl Hct 22.2 L (35.5-45.6) % MCV 79 L (84-94) fl MCH 26 L (28-32) pg RDW 18.8 H (13.2-15.2) % Sodium 136 L (137-145) mmol/L Potassium 3.3 L (3.6-5.0) mmol/L BUN 7 L (9-20) mg/dL Creatinine 0.5 L (0.8-1.3) mg/dL Calcium 8.3 L (8.4-10.2) mg/dL ALT < 5 L (7-56) units/L Total Protein 5.7 L (6.3-8.2) g/dL Albumin 2.2 L (3.9-5) g/dL
[2020-12-15] MEDS: MEROPENEM 2,000 MG in SODIUM CHLORIDE 0.9% 100 ML IV SCH ×2 (14:00→21:57)
[2020-12-15] MEDS ORDERED: MEROPENEM/NS 1 GRAM/100 ML 1 GRAM/100 ML BAG IV SCH (14:00)
[2020-12-16] MEDS: MEROPENEM 2,000 MG in SODIUM CHLORIDE 0.9% 100 ML IV SCH ×3 (05:26→16:16)
[2020-12-16] MEDS: oxyCODONE /ACETAMINOPHEN 5-325MG TAB PO PRN (05:47)
--- NOTE | 2020-12-16 09:19 | Progress Note ---
Assessment and Plan Cultures: 11/27/2020 COVID-19 PCR: Negative 11/19/2020 blood culture: No growth 11/19/2020 urine culture: E. coli 12/01/2020 blood culture: No growth 12/01/2020 urine culture: Enterococcus faecium (VRE) 12/02/2020 IR drainage culture: E.coli 12/05/2020 LUQ drainage cultures: E.coli 12/13/2020 LUQ drainage cultures: MDR E.coli resistant to zosyn, amp, FQ, A/P: 60-year-old male with gastroesophageal reflux disease, hypertension, hyperlipidemia, alcohol abuse admitted to the hospital on 11/19/2020 with ab dominal pain from suspected pancreatitis and alcohol withdrawal: #Sepsis: Source: large multifocal fluid and gas collections in the abdomen. #Large multifocal infected pancreatic pseudocyst: etiology initially was suspected R renal calyceal rupture causing urinary leak v/s infected pancreatic pseudocyst. Urology evaluated and IR following. Underwent IR drainage 12/02/2020 with about 500 cc of pinkish material drained. Additional CT-guided placement of 8 Tajik drainage catheter in left upper quadrant fluid collection with 180 mL of purulent urine aspirated on 12/05/2020. Repeat CT on 12/11/2020 with multiple encapsulated fluid collections, some decreased while some increased. Suspected pancreatic pseudocyst due to pancreatic duct disruption, noted on abdominal MRI. Fluid amylase was high. S/p Fluoroscopic guided evaluation and exchange of posterior drainage catheter with a total of 50 mL of additional obtained purulent fluid aspirated. Also, Fluoroscopic guided advanced duration and exchange of anterior drainage catheter with a total of 60 mL of additional purulent fluid aspirated. 12/13/2020 LUQ drainage cultures: MDR E.coli resistant to zosyn, amp, FQ, cefazolin. CRP=13. Status post Zosyn IV for 14 days improved 12/15/2020 (changed to meropenem due to MDR E. coli resistant to) #Subcapsular splenic collection: new, etiology unclear, likely related to above. #Acute alcohol withdrawal, chronic alcohol abuse #JOHN: Resolved #VRE UTI: s/p abx. Zyvox for UTI completed Recs: -Continue meropenem 2 g IV q 8 hours, duration probably 3 to 4 weeks -F/u serial CRP -F/u Procal Norma Garcia, MD [facility] ([facility]) Office [phone] Subjective Date of service: 12/16/20 Principal diagnosis: Sepsis Interval history: Patient feels about the same still. No abdominal pain, no fever. Objective - Exam Narrative Exam: General appearance: Alert in NAD Eyes: anicteric sclerae, moist conjunctivae; no lid-lag; PERRLA HENT: Normocephalic, Atraumatic; normal external ears, nares open, oropharynx clear with moist mucous membranes and no oral thrush Neck: supple, tracheal midline, no JVD Lungs: CTA, with normal respiratory effort and no intercostal retractions CV: RRR no murmur Abdomen: Soft, tender diffusely; drain with copious purulence Extremities: no edema, no cyanosis Skin: No rash. Psych: no agitated Neuro: alert and oriented x 3. Moving all extermities - Constitutional Vitals: Vital Signs Temp Pulse Resp BP Pulse Ox 98.9 F 91 H 18 120/74 98 12/16/20 05:27 12/16/20 05:27 12/16/20 05:27 12/16/20 05:27 12/16/20 05:27 Temperature -Last 24 Hours Temperature 98.9 F Temperature 98.6 F Temperature 98.6 F Temperature 98.6 F - Labs CBC & Chem 7: 12/15/20 05:22 12/15/20 05:22 Labs: Abnormal lab results 12/15/20 Range/Units 14:04 C-Reactive Protein 13.00 H (0.00-1.30) mg/dL
[2020-12-16] MEDS: FOLIC ACID 1 MG TAB PO SCH (09:33)
[2020-12-16] MEDS: PANTOPRAZOLE 40 MG TAB PO SCH (09:33)
[2020-12-16] MEDS: METOPROLOL TARTRATE 25 MG TAB PO SCH (09:39)
[2020-12-16 12:17] VITALS: BP 139/79
--- NOTE | 2020-12-16 15:31 | Discharge Summary ---
Providers - Providers Date of Admission: 11/19/20 18:12 Attending physician: PANFILO RODRIGUEZ MD 11/20/20 08:05 Consult to Dietitian/Nutrition [CONS] Routine Physician Instructions: Reason For Exam: Reason for Consult: Malnutrition 11/25/20 07:52 Consult to Physician [CONS] Routine Comment: Consulting Provider: KAROL ZURITA Physician Instructions: Reason For Exam: HYPERNATREMIA 11/26/20 18:59 Occupational Therapy Evaluate and Treat [CONS] Routine Comment: Reason For Exam: Chronic alcohol use/evaluate and treat/DC needs Physical Therapy Evaluation and Treat [CONS] Routine Comment: Reason For Exam: Evaluate and treat /chronic alcohol use/DC needs/ 11/27/20 08:59 Occupational Therapy Evaluate and Treat [CONS] Urgent Comment: Reason For Exam: to evaluate ADL status Physical Therapy Evaluation and Treat [CONS] Urgent Comment: Reason For Exam: to assess mobility status 12/01/20 16:44 Consult to Physician [CONS] Urgent Comment: Consulting Provider: CRALY DUGAN Physician Instructions: Reason For Exam: multifocal fluid collection para renal/splenic 12/01/20 16:46 Consult to Physician [CONS] Routine Comment: Consulting Provider: RENA YANES Physician Instructions: Reason For Exam: multifocal fluid collection/perirenal on CT 12/01/20 17:08 Consult to Physician [CONS] Routine Comment: informed Jose Au Consulting Provider: ALEJANDRA QUEEN Physician Instructions: Recent UTI Reason For Exam: Multil loculated fluid collection abd /?abscess 12/02/20 14:13 Consult to Physician [CONS] Routine Comment: Recommended by urologist Consulting Provider: SREE SANTANA Physician Instructions: Reason For Exam: Multifocal intra-abdominal fluid collection 12/12/20 14:29 Consult to Physician [CONS] Routine Comment: Consulting Provider: CARLY VENTURA Physician Instructions: Reason For Exam: evaluate abdominal fluid collection Primary care physician: PUMP TENDER Hospitalization Condition: Stable Hospital course: Assessment and plan: 60-year-old -Cypriot male who presented to [facility] for acute pancreatitis has been diagnosed with multifocal fluid and gas collection in the right pararenal space secondary to pancreatic duct disruption with leakage. --Sepsis secondary to pancreatic duct leak? - Abdominal drain catheter placed on 12/05/2020 by IR Surgical culture growing E. coli Vascular surgery following Infectious disease following, currently on Zosyn antibiotics Repeat CT of abdomen on 12/11/2020 shows multiple encapsulated abdominal fluid collections. Collection has decreased by 50%. Collection now is 7.0 x 4.3 cm. A percutaneous drain has been placed in the right posterior pararenal space. This collection has increased in size from 1 cm to 3.8 cm in greatest thickness. There are few smaller loculated fluid collections near the esophageal hiatus in the medial left subdiaphragmatic space which appears stable. Small to medium perisplenic fluid collections appear decreased by 10% a collection along the right lateral abdominal wall is slightly increased from 3.8x2 0.2 x 5.1 x 3.0 cm. There is a small collection in the left lower quadrant measuring 4.5 x 1.8 cm which appears unchanged. Overall there is no overwhelming change that is appreciated since 12/04/[address] scan of the abdomen. Multiple encapsulated fluid collections are still seen in the abdomen some of which have increased in size and some which have decreased in size. 12/12/2020 MRCP abdomen shows pancreatic duct irregularities which could indicate a stricture and duct disruption. GI consulted, they recommend transfer to [facility] for EUS and potential ERCP. process initiated, paperwork pending. 12/13/2020: Abdominal 8 Omani drain replaced with a 16 Omani all-purpose drain catheter under fluoroscopy --Right renal calyx rupture Large multifocal fluid and gas collections in the right pararenal space: etiology is suspected R renal calyceal rupture causing urinary leak. - Underwent IR drainage 12/02/2020 with about 500 cc of pinkish material drained. - 12/05/2020 CT-guided placement of 8 Omani drainage catheter in left upper quadrant fluid collection with 180 mL of purulent urine aspirated Urology following, recommended placement of drains Spoke with urology, creatinine from right flank drain is normal. Most likely not urine. No intervention from urology is required - 12/13/2020: 8 Omani drain catheter replaced with right flank 16 Omani all- purpose drain catheter placed --Subcapsular splenic collection new, etiology unclear, possibly related to right renal calyx rupture --Mild pleural effusions Lasix --Hypernatremia Resolved --Alcohol withdrawal delirium Current Visit: No Status: Acute Currently on [facility] protocol No signs of withdrawal --Acute /chronic pancreatitis/alcohol related Current Visit: No Status: Acute Currently tolerating diet, no abdominal pain --Acute kidney injury Current Visit: Yes Status: Acute Resolved --Hypertension Current Visit: No Status: Chronic Metoprolol 12.5 mg twice daily Hydralazine 10 mg IV every 4 hours as needed Monitor patient's blood pressure --Nicotine dependence Current Visit: No Status: Chronic Smoking cessation counseling Nicotine patch as needed --VRE UTI/E. coli Current Visit: No Status: Acute Zyvox completed on 12/13/2020 --Severe protein calorie malnutrition Current Visit: No Status: Acute Hypoalbuminemia , albumin 2.8 Nutrition supplements, nutrition consult and supportive care -- Metabolic acidosis Current Visit: Yes Status: Acute Plan to address problem: Secondary to uremia as well as chronic pancreatitis treat underlying etiology. Resolved History Interval history: 60-year-old male patient was admitted with alcohol withdrawal symptoms On CIWA protocol patient has E. coli UTI completed treatment with antibiotics COVID-19 test is negative, waiting for placement however on 12/01/2020 Patient developed sudden abdominal pain, CT scan showed multiple loculated collections, sepsis IR Dr. Dugan, urology disposition Home and ID Dr. Garcia was consulted, IR is planning CT-guided aspiration Try to contact daughter Huong Hua, unable to reach left a message and requested to call back 11/20/2020; patient feels slightly better, no significant withdrawal symptoms Patient is on CIWA protocol, stable to be transferred out of [facility] to medical floor 11/21/2020; patient has severe agitation tremulousness, patient is on CIWA protocol Closely monitor withdrawal symptoms, adjust the medications as needed in the morning equal in both upper Advance diet to regular as tolerated. I called patient's mother and also patient's daughter Ms. Huong Hua at [phone] 11/22/2020; Patient continues to be agitated confused mumbling, On CIWA protocol, restraint for safety. E. coli UTI on Zosyn Called again patient's daughter next of kin Ms. Huong Hua at [phone][number obtained from case coordinator Gilda] Did not pickling operator the phone I left a voicemail again today to discuss about Mr. Parada's condition and treatment plan 11/23/2020 Patient continues to be agitated Resumed service 11/26/2020; Patient still has mild alcohol withdrawal symptoms Restraints for safety 11/27/2020; Patient is off CIWA protocol and restraints PT OT evaluated, PT recommending subacute rehab 11/28/2020; today patient has some mild shortness of breath and wheezing Tachycardia heart rate in 100 -110 , alert awake oriented x3 Possible fluid overload, give 1 dose of Lasix IV, checks chest x-ray 11/29/2020; patient is more alert and awake, no shortness of breath No alcohol withdrawal symptoms, pending subacute rehab placemen 11/30/2020; Anemia patient's hemoglobin dropped to 6.9, transfuse 1 unit PRBC Stool for occult blood, GI consult if needed 12/01/2020; stool guaiac negative Hb improved to 8.1, complains of some abdominal pain and discomfort Will check CT abdomen and pelvis Pending placement IAdvised to quit alcohol intake CT abdomen and pelvis multifocal fluid collection IR/urology/ID were consulted, started antibiotics IR recommend CT-guided drainage 12/02/2020; CT-guided drainage pain, tried to contact and next of kin daughter Ms. Huong Hua at [phone][number obtained from case coordinator Ms. Vo] Did not pickling operator the phone, left message to call back 12/03/2020; patient feels slightly better CT-guided drain placement yesterday per IR ID changed antibiotics to Zosyn Reevaluation by PT, recommend subacute rehab DC planning per case management We will discharge to subacute rehab when medically stable 12/04/2020; follow-up CT abdomen and pelvis 12/04/2020 Findings as above, persistent fluid collections in multiple areas 12/05/2020; CT-guided placement of abdominal drainage catheter for right perinephrotic calyceal rupture and intra-abdominal stranding of infected urine. Patient tolerated the procedure well Continue postoperative care All the consultants and recommendations noted and appreciated 12/06/2020; patient feels slightly better, has 2 drains into the pocket intra- abdominal fluid collection Draining well, IR, surgery, ID following 12/07/2020; patient feels slightly better, has 2 drains into the pocket intra- abdominal fluid collection 12/08/20 patient feels slightly better, has 2 drains into the pocket intra-abdominal fluid collection Draining well, IR, surgery, ID following 12/09/20 patient feels slightly better, has 2 drains into the pocket intra-abdominal fluid collection Draining well, IR, surgery, ID following 12/10/2020: Patient seen and examined, states that he is improved, does have some crackles in his lungs, somewhat difficult to breathe. No fevers or chills overnight. Continues on antibiotics. . 12/11/2020: Patient seen and examined, states that his breathing is improved somewhat. Start patient on Lasix. CT of abdomen reviewed, fluid collections persist. 12/12/2020: Patient seen and examined, continues to have minimal abdominal and flank pain. No acute distress 12/13/2020: Patient seen and examined, working with PT. Continues to have mild pain. Minimal drainage from drains. 12/14/2020: Drains replaced yesterday per vascular surgery. Patient continues to have abdominal pain. 12/15/2020: No overnight events, patient afebrile, pain is better controlled today, continues to have abdominal pain when trying to eat solid foods. 12/16/2020: No overnight events, spoke with Dr. Carrasquillo from [facility], give signout, will accept the patient. All records and CDs of imaging have been prepared, patient is stable for transfer, I updated the family to the transfer they are aware. Disposition: [id number]/[id number] [facility] Final Discharge Diagnosis (Prints w/discharge instructions): Sepsis secondary to pancreatic duct leak. Right renal calyx rupture. Subscapular splenic collection. Mild pleural effusion. Hyponatremia. Alcohol withdrawal delirium. Acute on chronic pancreatitis. Alcohol abuse. Acute kidney injury. Hypertension. Nicotine dependence. VRE UTI. Severe protein caloric malnutrition. Metabolic acidosis Time spent for discharge: 50 minutes Core Measure Documentation - Palliative Care Palliative Care/ Comfort Measures: Not Applicable - Core Measures Any of the following diagnoses?: none Exam - Physical Exam Narrative exam: General appearance: no acute distress, well-nourished EENT: PERRL, EOM intact, hearing intact, clear oral mucosa, poor dentition Neck: Present: supple, normal ROM Respiratory: Lungs clear to auscultation, no rales or rhonchi heard bilaterally Cardiovascular: Regular rate/rhythm, Normal S1 & S2. No gallop, rub Extremities: no ischemia, No edema, normal temperature, normal color, Full ROM Abdominal: Abdominal drain with thick 10 cc drainage, flank drain with serous ROM drainage, about 10 cc abdomen soft, no tenderness, non-distended Integumentary: Present: clear, warm, dry no wounds, no erythema noted Psychiatric: appropriate mood/affect, intact judgment & insight Neurologic: CNII-XII intact, moves all extremities, no sensory or motor abnormalities - Constitutional Vitals: Temp Pulse Resp BP Pulse Ox 99.0 F 95 H 20 139/79 98 12/16/20 11:00 12/16/20 11:00 12/16/20 11:00 12/16/20 11:00 12/16/20 11:00 Plan Plan of Treatment: Patient to be transferred to [facility] for GI consultation, possible EUS/ERCP. Spoke with Dr. Carrasquillo, hospitalist, on 12/16/2020, she is aware of the patient, she will accept the patient. Follow up with: PRIMARY CARE, [Primary Care Provider] - 3-5 Days
[2020-12-26 15:45] LABS: Blood Urea Nitrogen 21 mg/dL (9-20)
== END 2020-12-16 16:55 | disposition short-term general hospital (02) | DRG 871 ==
LOC: ED 16:17 → 3A 18:12 → IMCU 20:57 → 4A 11-20 12:47 → IMCU 12-01 18:48 → 3A 12-10 22:51
PROVIDERS: ADMIT Internal Medicine; ATTEND Family Medicine
PROC: 4A033R1 Measurement of Arterial Saturation, Peripheral, Percutaneous Approach (ICD-10-PCS; 2020-11-28)
PROC: 30233N1 Transfusion of Nonautologous Red Blood Cells into Peripheral Vein, Percutaneous Approach (ICD-10-PCS; 2020-11-30)
PROC: 5A09357 Assistance with Respiratory Ventilation, Less than 24 Consecutive Hours, Continuous Positive Airway Pressure (ICD-10-PCS; 2020-11-30)
PROC: 5A09357 Assistance with Respiratory Ventilation, Less than 24 Consecutive Hours, Continuous Positive Airway Pressure (ICD-10-PCS; 2020-12-01)
PROC: 0W9H30Z Drainage of Retroperitoneum with Drainage Device, Percutaneous Approach (ICD-10-PCS; principal; 2020-12-02)
PROC: 0W9F30Z Drainage of Abdominal Wall with Drainage Device, Percutaneous Approach (ICD-10-PCS; 2020-12-05)
PROC: 0W2FX0Z Change Drainage Device in Abdominal Wall, External Approach (ICD-10-PCS; 2020-12-13)
DX: A41.51 Sepsis due to Escherichia coli [E. coli] (principal); K85.20 Alcohol induced acute pancreatitis without necrosis or infection; N17.0 Acute kidney failure with tubular necrosis; E43 Unspecified severe protein-calorie malnutrition; K65.1 Peritoneal abscess; F10.131 Alcohol abuse with withdrawal delirium; N39.0 Urinary tract infection, site not specified; E87.2 Acidosis; E87.0 Hyperosmolality and hypernatremia; R18.8 Other ascites; Z20.822 Contact with and (suspected) exposure to COVID-19; K21.9 Gastro-esophageal reflux disease without esophagitis; R65.20 Severe sepsis without septic shock; E11.9 Type 2 diabetes mellitus without complications; I10 Essential (primary) hypertension; Y90.9 Presence of alcohol in blood, level not specified; E78.5 Hyperlipidemia, unspecified; Z68.25 Body mass index [BMI] 25.0-25.9, adult; E87.6 Hypokalemia; R79.89 Other specified abnormal findings of blood chemistry; E83.42 Hypomagnesemia; E83.39 Other disorders of phosphorus metabolism; D64.9 Anemia, unspecified; F10.10 Alcohol abuse, uncomplicated; E87.5 Hyperkalemia; M19.90 Unspecified osteoarthritis, unspecified site; F17.200 Nicotine dependence, unspecified, uncomplicated; Z79.899 Other long term (current) drug therapy
CPT/HCPCS: 10030; 10160; 36415; 36600; 70450; 71045; 74176; 74177; 74182; 77012; 80048; 80053; 80076; 80307; 81001; 82140; 82150; 82270; 82550; 82553; 82570; 82805; 82962; 83690; 83735; 83880; 84100; 84132; 84145; 84484; 84520; 85007; 85014; 85018; 85025; 85027; 85379; 85610; 85730; 86140; 86850; 86900; 86901; 86920; 87040; 87076; 87086; 87116; 87186; 87641; 93005; 93975; 94640; 94660; 96361; 96372; 96374; 96375; 99292; G0378; J7070; A9575; C1729; C1769; C1887; C9113; J0610; J0692; J1170; J1630; J1644; J1650; J1940; J2060; J2185; J2250; J2270; J2405; J2543; J3010; J3411; J3475; J3480; J7030; J7040; J7042; J7050; P9016; Q9967; U0003

== ENCOUNTER 2020-12-18 14:38 | Inpatient (IN) | payer MEDICARE ==
[2020-12-19] MEDS ORDERED: ONDANSETRON 4 MG/2 ML INJ IV PRN (00:37)
[2020-12-19] MEDS ORDERED: ACETAMINOPHEN 325 MG TAB PO PRN (00:37)
[2020-12-19] MEDS ORDERED: ALBUTEROL 2.5 MG/3 ML NEBU IH PRN (00:37)
[2020-12-19] MEDS ORDERED: NALOXONE 0.4 MG/1 ML INJ IV PRN (00:41)
[2020-12-19] MEDS ORDERED: LORazepam 2 MG/ML VIAL IV PRN (00:46)
[2020-12-19] MEDS ORDERED: D5W/0.45% NACL 1,000 ML IV SCH (01:00)
--- NOTE | 2020-12-19 01:21 | History and Physical Report ---
History of Present Illness Date of examination: 12/19/20 Date of admission: 12/19/2020 Chief complaint: Infected pancreatic pseudocyst, abdominal pain History of present illness: 60-year-old -[place] male with history of hypertension, alcoholism, hyperlipidemia, recurrent pancreatitis who was previously admitted on 11/19/2020 with complaints of acute episode of abdominal pain radiating to the left side to the back x3-4 days and alcohol withdrawal symptoms. He was found to have acute pancreatitis secondary to alcohol abuse. His course was complicated by JOHN, hypernatremia, UTI, and sepsis secondary to pancreatic duct leak. On 12/05 he underwent drainage catheter placement in left upper quadrant. On 12/12 MRCP was done and showed pancreatic duct irregularities. He was seen and evaluated by urology, general surgery, and ID. On 12/16 patient was transferred to [facility] to be seen by interventional GI (Dr. Alfie Villalobos) for possible ERCP. Dr. Alfie Villalobos evaluate patient and decided there is no role for ERCP at this time. Initial management should be geared towards resolution of fluid collection and percutaneous drain management per IR, with recommendations to flush drains with 20-30 cc of H2O twice daily, and follow-up with GI as out patient in 4 to 6 weeks. Patient was transferred back to [facility] for further evaluation and treatment. Midline was placed at [facility] with anticipation of long-term (4 to 6 weeks) IV ABX. At the time of my examination patient is resting comfortably in bed. Endorses mild generalized abdominal discomfort worse in left upper quadrant area. He has no complaints at this time. Denies fever, chills, nausea, vomiting, headache, dysuria, hematuria, or constipation Past History Past Medical History: GERD, hypertension, hyperlipidemia, other (Alcohol abuse, malnutrition, recurrent pancreatitis, liver disease) Past Surgical History: Other (Abdominal drainage catheter 12/05, MRCP 12/12, percutaneous drains 12/12, scrotal lesion) Social history: lives with family, smoking, alcohol abuse Family history: no significant family history Medications and Allergies Allergies Allergy/AdvReac Type Severity Reaction Status Date / Time No Known Allergies Allergy Verified 10/25/19 12:42 Home Medications Medication Instructions Recorded Confirmed Last Taken Type Folic Acid [Folvite] 1 mg PO QDAY #30 tablet 10/27/19 11/20/2021 Rx Cyanocobalamin (Vitamin B-12) 100 mcg PO QDAY 11/20/20 11/20/20 11/18/20 History Lipase/Protease/Amylase [Karen Au 1 cap PO TID 11/20/20 11/20/20 11/18/20 History 6,000 Units] Pantoprazole [Protonix TAB] 40 mg PO DAILY 11/20/20 11/20/20 11/18/20 History Potassium Gluconate [Potassium] 595 mg PO QDAY 11/20/20 11/20/20 11/18/20 History allopurinoL [Zyloprim] 300 mg PO DAILY 11/20/20 11/20/20 11/18/20 History Meropenem [Merrem] 2,000 mg IV Q8HR vial 12/16/20 Unknown Rx Metoprolol [Lopressor TAB] 12.5 mg PO BID tablet 12/16/20 Unknown Rx Active Meds: Active Medications Acetaminophen (Acetaminophen 325 Mg Tab) 650 mg PO Q4H PRN PRN Reason: Pain MILD(1-3)/Fever >100.5/[place] Albuterol (Albuterol 2.5 Mg/3 Ml Nebu) 2.5 mg IH Q3HRT PRN PRN Reason: Shortness Of Breath Folic Acid (Folic Acid 1 Mg Tab) 1 mg PO QDAY JANNETH Heparin Sodium (Porcine) (Heparin 5,000 Unit/1 Ml Vial) 5,000 unit SUB-Q Q12HR JANNETH Hydromorphone HCl (Hydromorphone 1 Mg/1 Ml Inj) 0.5 mg IV Q3H PRN PRN Reason: Pain , Severe (7-10) Dextrose/Sodium Chloride (D5/0.45ns) 1,000 mls @ 75 mls/hr IV DIRECT JANNETH Stop: 12/19/20 12:00 Lorazepam (Lorazepam 2 Mg/Ml Vial) 2 mg IV Q1H PRN PRN Reason: CIWA-Ar 8-15 Metoprolol Tartrate (Metoprolol Tartrate 25 Mg Tab) 12.5 mg PO BID JANNETH Miscellaneous Medication (Meropenem) 2,000 mg IV Q8HR JANNETH Miscellaneous Medication (Cyanocobalamin (Vitamin B-12)) 100 mcg PO QDAY JANNETH Morphine Sulfate (Morphine 2 Mg/1 Ml Inj) 2 mg IV Q4H PRN PRN Reason: Pain, Moderate (4-6) Naloxone HCl (Naloxone 0.4 Mg/1 Ml Inj) 0.1 mg IV Q2MIN PRN PRN Reason: Res Rate </= 8 or 02 SAT < 92% Nicotine (Nicotine 14 Mg/24 Hr Patch) 14 mg TD QDAY JANNETH Ondansetron HCl (Ondansetron 4 Mg/2 Ml Inj) 4 mg IV Q6H PRN PRN Reason: Nausea And Vomiting Pantoprazole Sodium (Pantoprazole 40 Mg Tab) 40 mg PO DAILY JANNETH Sodium Chloride (Sodium Chloride 0.9% 10 Ml Flush Syringe) 10 ml IV BID JANNETH Sodium Chloride (Sodium Chloride 0.9% 10 Ml Flush Syringe) 10 ml IV PRN PRN PRN Reason: LINE FLUSH Review of Systems All systems: negative (As noted in HPI) Exam - Physical Exam Narrative exam: Physical exam General appearance: Present: No acute distress, alert and oriented 3, older adult male - EENT Eyes: Present: PERRL, EOM intact ENT: hearing intact, normal dentition - Neck Neck: Present: supple, normal ROM - Respiratory Respiratory effort: Non-labored Respiratory: Clear throughout - Cardiovascular Heart rate: 90 (bpm) Rhythm: Sinus Heart Sounds: Present: S1 & S2. Absent: rub, click - Extremities Extremities: no ischemia, pulses intact,, left upper extremity midline - Peripheral Assessment Peripheral Pulses: within normal limits - Abdominal General gastrointestinal: soft, left upper quadrant abdominal catheter noted with discolored fluid, abdominal tenderness, worse in left upper quadrant, normal bowel sounds - Integumentary Integumentary: Present: warm, dry - Musculoskeletal Musculoskeletal: Able to move all extremities -Neurological Neurological: CN II-XII intact - Psychiatric Psychiatric: Appropriate for situation ,cooperative - Constitutional Vitals: Temp Pulse Resp BP Pulse Ox 99.3 F 88 18 118/76 98 12/19/20 00:20 12/19/20 00:20 12/19/20 00:20 12/19/20 00:20 12/19/20 00:20 Assessment and Plan Assessment and plan: Bacterial sepsis secondary to pancreatic leak -large multifocal fluid and gas collections in the abdomen. -12/02 IR drainage with about 500 cc of pinkish material drained -12/05 CT-guided placement of 8 [place] drainage catheter in left upper quadrant fluid -12/13/2020 LUQ drainage cultures: MDR E.coli resistant to zosyn, amp, FQ, cefazolin -12/15/2020 started on meropenem due to MDR E. 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 -Will likely need follow-up CT abdomen pelvis in 4 to 6 weeks to determine optimal timing of removal of drains -Recommends outpatient GI follow-up [facility] in [place], [place] ([phone]) -Readmitted back to [facility] on 12/19 HTN -Monitor BP -Resume metoprolol 12.5 twice daily EtOH Abuse -Last drink unknown -Initiate CIWA protocol -Continue p.o. thiamine and Folic Acid -On D5 / NS -Counseled for cessation abuse Tobacco abuse -Current every day smoker -Counseled for cessation -Nicotine patch when necessary DVT and GI PPX -On Protonix and Heparin Advance Directives: No VTE prophylaxis?: Chemical, Mechanical Plan of care discussed with patient/family: Yes
[2020-12-19 02:18] LABS: Alanine Aminotransferase < 5 units/L (7-56); Albumin 2.4 g/dL (3.9-5); BUN/Creatinine Ratio 13; Blood Urea Nitrogen 4 mg/dL (9-20); Calcium 8.3 mg/dL (8.4-10.2); Hemolysis Index 1
[2020-12-19 02:22] LABS: Basophils # (Auto) 0.1 K/mm3 (0.0-0.1); Basophils % (Auto) 1.3 % (0.0-1.8); Eosinophils # (Auto) 0.1 K/mm3 (0.0-0.4); Eosinophils % (Auto) 0.8 % (0.0-4.3); Hemoglobin 8.4 gm/dl (11.8-15.2); Lymphocytes # (Auto) 1.2 K/mm3 (1.2-5.4); Lymphocytes % (Auto) 16.9 % (13.4-35.0); Mean Corpuscular HGB Conc 34 % (32-34); Mean Corpuscular Volume 79 fl (84-94); Monocytes # (Auto) 0.9 K/mm3 (0.0-0.8); Monocytes % (Auto) 12.3 % (0.0-7.3); Platelet Count 281 K/mm3 (140-440); Red Blood Count 3.18 M/mm3 (3.65-5.03); Red Cell Distribution Width 18.9 % (13.2-15.2)
--- NOTE | 2020-12-19 03:29 | XRay Report ---
XR elbow 2V LT INDICATION: confirm midline placement COMPARISON: None. FINDINGS/IMPRESSION: Left midline venous catheter placement terminating in the mid arm as expected. Signer Name: Kiran Nolan MD Signed: 12/19/2020 3:24 AM Workstation Name: [id number]
[2020-12-19] MEDS ORDERED: WATER FOR INJ Sterile (PF) 0 ML ONE (04:35)
[2020-12-19] MEDS: MORPHINE 2 MG/1 ML INJ IV PRN (04:42)
[2020-12-19] MEDS ORDERED: WATER FOR IRRIG STERILE 1,000 ML BOTTLE ONE (04:52)
[2020-12-19] MEDS ORDERED: WATER FOR IRRIG STERILE 1,000 ML BOTTLE IR SCH (04:55)
[2020-12-19] MEDS ORDERED: MEROPENEM 1000 MG IV SCH (06:00)
[2020-12-19] MEDS: MEROPENEM 2,000 MG in SODIUM CHLORIDE 0.9% 100 ML IV SCH ×3 (06:29→22:16)
[2020-12-19] MEDS: NICOTINE 14 MG/24 HR PATCH TD SCH (09:26)
[2020-12-19] MEDS: PANTOPRAZOLE 40 MG TAB PO SCH (09:27)
[2020-12-19] MEDS: FOLIC ACID 1 MG TAB PO SCH (09:27)
[2020-12-19] MEDS: METOPROLOL TARTRATE 25 MG TAB PO SCH ×2 (09:27→21:32)
[2020-12-19] MEDS: CYANOCOBALAMIN (VIT B-12) 100 MCG TAB PO SCH (09:28)
[2020-12-19] MEDS: HEPARIN 5,000 UNIT/1 ML VIAL SUB-Q SCH ×2 (09:28→21:32)
[2020-12-19] MEDS ORDERED: CYANOCOBALAMIN 100 MCG PO SCH (10:00)
[2020-12-19] MEDS ORDERED: MAGNESIUM SULFATE 1 GM in SODIUM CHLORIDE 0.9% 50 ML IV ONE (11:30)
[2020-12-19] MEDS ORDERED: SODIUM PHOSPHATE 45 MMOL in SODIUM CHLORIDE 0.9% 500 ML 500 ML IV ONE (11:30)
--- NOTE | 2020-12-19 12:11 | Event Note ---
Date: 12/19/20 Patient seen and examined resting comfortably no new issues noted. Noted to have hypomagnesemia hypoalbuminemia hypophosphatemia will replace magnesium alk phos. Discussed with case management about long-term antibiotic therapy. Continue current management once antibiotics arranged patient can be discharged. Plan of care discussed with the patient in detail
--- NOTE | 2020-12-19 15:09 | Consultation ---
History of Present Illness - Reason for Consult Consult date: 12/19/20 - History of Present Illness 60-year-old male past medical history hypertension, alcohol abuse, hyperlipidemia, pancreatitis presented to hospital complaining of abdominal pain which radiated to the left side of the back. This began approximate 3 to 4 days prior to mission. He also complains of alcohol withdrawal symptoms. Of note he was recently admitted here on 11/19/2020. On 12/05/2020 he had a drainage catheter placed in the left upper quadrant, and transferred to [facility] on 12/16/2020. He had a midline placed to be [place] with anticipation of long-term antibiotics. Drainage cultures during his admission grew MDR E. coli, and he was treated with meropenem. Afebrile, normal white count. Current blood cultures no growth so far Imaging personally reviewed: Elbow x-ray: Midline in place, no acute pathology. Review of Systems: Bold if positive, otherwise negative General: fevers, chills, rigors HEENT: visual disturbance, diplopia, eye pain Respiratory: cough, sputum, hemoptysis, shortness of breath Cardiovascular: chest pain, syncope Gastrointestinal: nausea, vomiting, diarrhea, abdominal pain Genitourinary: dysuria, hematuria, flank pain Musculoskeletal: neck pain, back pain, joint pain, edema Neurologic: headaches, seizures Hematologic: easy bruising or bleeding Endocrine: night sweats, acute weight loss Skin: rash, jaundice, redness Psychiatric: suicidal, homicidal ideation Past History Past Medical History: GERD, hypertension, hyperlipidemia, other (Alcohol abuse, malnutrition, recurrent pancreatitis, liver disease) Past Surgical History: Other (Abdominal drainage catheter 12/05, MRCP 12/12, percutaneous drains 12/12, scrotal lesion) Social history: lives with family, smoking, alcohol abuse Family history: no significant family history Medications and Allergies Allergies Allergy/AdvReac Type Severity Reaction Status Date / Time No Known Allergies Allergy Verified 10/25/19 12:42 Home Medications Medication Instructions Recorded Confirmed Last Taken Type Folic Acid [Folvite] 1 mg PO QDAY #30 tablet 10/27/19 12/19/20 11/18/20 Rx Cyanocobalamin (Vitamin B-12) 100 mcg PO QDAY 11/20/20 12/19/20 11/18/20 History Lipase/Protease/Amylase [Creon Dr 1 cap PO TID 11/20/20 12/19/20 11/18/20 History 6,000 Units] Pantoprazole [Protonix TAB] 40 mg PO DAILY 11/20/20 12/19/20 11/18/20 History Potassium Gluconate [Potassium] 595 mg PO QDAY 11/20/20 12/19/20 11/18/20 His tory allopurinoL [Zyloprim] 300 mg PO DAILY 11/20/20 12/19/20 11/18/20 History Meropenem [Merrem] 2,000 mg IV Q8HR vial 12/16/20 12/19/20 Unknown Rx Metoprolol [Lopressor TAB] 12.5 mg PO BID tablet 12/16/20 12/19/20 Unknown Rx Active Meds: Active Medications Acetaminophen (Acetaminophen 325 Mg Tab) 650 mg PO Q4H PRN PRN Reason: Pain MILD(1-3)/Fever >100.5/[place] Albuterol (Albuterol 2.5 Mg/3 Ml Nebu) 2.5 mg IH Q3HRT PRN PRN Reason: Shortness Of Breath Cyanocobalamin (Cyanocobalamin (Vit B-12) 100 Mcg Tab) 100 mcg PO QDAY [facility] Last Admin: 12/19/20 09:28 Dose: 100 mcg Documented by: Folic Acid (Folic Acid 1 Mg Tab) 1 mg PO QDAY [facility] Last Admin: 12/19/20 09:27 Dose: 1 mg Documented by: Heparin Sodium (Porcine) (Heparin 5,000 Unit/1 Ml Vial) 5,000 unit SUB-Q Q12HR [facility] Last Admin: 12/19/20 09:28 Dose: 5,000 unit Documented by: Hydromorphone HCl (Hydromorphone 1 Mg/1 Ml Inj) 0.5 mg IV Q3H PRN PRN Reason: Pain , Severe (7-10) Meropenem 2,000 mg/ Sodium (Chloride) 100 mls @ 100 mls/hr IV Q8HR [facility] Stop: 01/12/21 22:59 Last Admin: 12/19/20 14:53 Dose: 100 mls/hr Documented by: Sodium Phosphate 45 mmol/ (Sodium Chloride) 515 mls @ 84 mls/hr IV ONCE ONE Stop: 12/19/20 17:37 Last Admin: 12/19/20 12:17 Dose: 84 mls/hr Documented by: Lorazepam (Lorazepam 2 Mg/Ml Vial) 2 mg IV Q1H PRN PRN Reason: CIWA-Ar 8-15 Metoprolol Tartrate (Metoprolol Tartrate 25 Mg Tab) 12.5 mg PO BID [facility] Last Admin: 12/19/20 09:27 Dose: 12.5 mg Documented by: Morphine Sulfate (Morphine 2 Mg/1 Ml Inj) 2 mg IV Q4H PRN PRN Reason: Pain, Moderate (4-6) Last Admin: 12/19/20 04:42 Dose: 2 mg Documented by: Naloxone HCl (Naloxone 0.4 Mg/1 Ml Inj) 0.1 mg IV Q2MIN PRN PRN Reason: Res Rate </= 8 or 02 SAT < 92% Nicotine (Nicotine 14 Mg/24 Hr Patch) 14 mg TD QDAY [facility] Last Admin: 12/19/20 09:26 Dose: 14 mg Documented by: Ondansetron HCl (Ondansetron 4 Mg/2 Ml Inj) 4 mg IV Q6H PRN PRN Reason: Nausea And Vomiting Pantoprazole Sodium (Pantoprazole 40 Mg Tab) 40 mg PO DAILY [facility] Last Admin: 12/19/20 09:27 Dose: 40 mg Documented by: Sodium Chloride (Sodium Chloride 0.9% 10 Ml Flush Syringe) 10 ml IV BID [facility] Last Admin: 12/19/20 09:26 Dose: 10 ml Documented by: Sodium Chloride (Sodium Chloride 0.9% 10 Ml Flush Syringe) 10 ml IV PRN PRN PRN Reason: LINE FLUSH Sterile Water (Water For Irrig Sterile 1,000 Ml Bottle) 1,000 ml IR DIRECT [facility] Physical Examination - Physical Exam Narrative exam: Physical Exam: Constitutional: Alert, cooperative. No acute distress Head, Ears, Nose: Normocephalic, atraumatic. External ears, nose normal Eyes: Conjunctivae/corneas clear. No icterus. No ptosis. Neck: Supple, no meningeal signs Oral: dentition fair, no thrush Cardiovascular: S1, S2 normal. Respiratory: Good air entry, clear to auscultation bilaterally GI: Soft, non-tender; bowel sounds normal. No peritoneal signs. Musculoskeletal: No pedal edema, no cyanosis. Skin: No rash or abscess Hem/Lymphatic: No palpable cervical or supraclavicular nodes. No lymphangitis Psych: Mood ok. Affect normal Neurological: Awake, alert, oriented. No gross abnormality - Constitutional Vitals: Vital Signs Temp Pulse Resp BP Pulse Ox 97.9 F 91 H 18 127/80 100 12/19/20 11:11 12/19/20 11:11 12/19/20 11:11 12/19/20 11:11 12/19/20 11:11 Temperature -Last 24 Hours Temperature 97.9 F Temperature 99.5 F Temperature 99.3 F Results - Labs CBC & Chem 7: 12/19/20 01:34 12/19/20 01:34 Labs: Abnormal lab results 12/19/20 12/19/20 12/19/20 Range/Units 01:34 01:34 01:34 RBC 3.18 L (3.65-5.03) M/mm3 Hgb 8.4 L (11.8-15.2) gm/dl Hct 25.0 L (35.5-45.6) % MCV 79 L (84-94) fl MCH 26 L (28-32) pg RDW 18.9 H (13.2-15.2) % [place] % (Auto) 12.3 H (0.0-7.3) % [place] # (Auto) 0.9 H (0.0-0.8) K/mm3 Sodium 132 L (137-145) mmol/L BUN 4 L (9-20) mg/dL Creatinine 0.3 L (0.8-1.3) mg/dL Calcium 8.3 L (8.4-10.2) mg/dL Phosphorus 1.50 L (2.5-4.5) mg/dL Magnesium 1.30 L (1.7-2.3) mg/dL ALT < 5 L (7-56) units/L Alkaline Phosphatase 132 H (35-129) units/L Total Protein 6.1 L (6.3-8.2) g/dL Albumin 2.4 L (3.9-5) g/dL Assessment and Plan Cultures: 11/27/2020 COVID-19 PCR: Negative 11/19/2020 blood culture: No growth 11/19/2020 urine culture: E. coli 12/01/2020 blood culture: No growth 12/01/2020 urine culture: Enterococcus faecium (VRE) 12/02/2020 IR drainage culture: E.coli 12/05/2020 LUQ drainage cultures: E.coli 12/13/2020 LUQ drainage cultures: MDR E.coli resistant to zosyn, amp, FQ, A/P: 60-year-old male with gastroesophageal reflux disease, hypertension, hyperlipidemia, alcohol abuse admitted to the hospital on 11/19/2020 with abdominal pain from suspected pancreatitis and alcohol withdrawal: #Sepsis: Source: large multifocal fluid and gas collections in the abdomen. #Large multifocal infected pancreatic pseudocyst: etiology initially was suspected R renal calyceal rupture causing urinary leak v/s infected pancreatic pseudocyst. Urology evaluated and IR following. Underwent IR drainage 12/02/2020 with about 500 cc of pinkish material drained. Additional CT-guided placement of 8 Belgian drainage catheter in left upper quadrant fluid collection with 180 mL of purulent urine aspirated on 12/05/2020. Repeat CT on 12/11/2020 with multiple encapsulated fluid collections, some decreased while some increased. Suspected pancreatic pseudocyst due to pancreatic duct disruption, noted on abdominal MRI. Fluid amylase was high. S/p Fluoroscopic guided evaluation and exchange of posterior drainage catheter with a total of 50 mL of additional obtained purulent fluid aspirated. Also, Fluoroscopic guided advanced duration and exchange of anterior drainage catheter with a total of 60 mL of additional purulent fluid aspirated. 12/13/2020 LUQ drainage cultures: MDR E.coli resistant to zosyn, amp, FQ, cefazolin. CRP=13. Status post Zosyn IV for 14 days improved 12/15/2020 (changed to meropenem due to MDR E. coli resistant to). Now returned from [facility], no acute intervention occurred. #Subcapsular splenic collection: new, etiology unclear, likely related to above. #Acute alcohol withdrawal, chronic alcohol abuse #JOHN: Resolved #VRE UTI: s/p abx. Zyvox for UTI completed Recs: -Continue meropenem 2 g IV q 8 hours, duration 4 weeks -midline in place -Case management consulted for meropenem 2g q8h until 01/11/2021 Jud Garzon MD [facility] O: [phone] F: [phone]
[2020-12-19] MEDS ORDERED: dexAMETHasone 4 MG/ML VIAL ONE (15:35)
[2020-12-19] MEDS: HYDROmorphone 1 MG/1 ML INJ IV PRN (21:33)
[2020-12-20] MEDS: MORPHINE 2 MG/1 ML INJ IV PRN ×3 (03:16→21:31)
[2020-12-20] MEDS: MEROPENEM 2,000 MG in SODIUM CHLORIDE 0.9% 100 ML IV SCH ×3 (05:42→21:56)
[2020-12-20 08:25] LABS: Albumin 2.4 g/dL (3.9-5); Blood Urea Nitrogen 3 mg/dL (9-20); Calcium 8.2 mg/dL (8.4-10.2); Hemolysis Index 2
[2020-12-20 08:28] LABS: Alanine Aminotransferase < 5 units/L (7-56); BUN/Creatinine Ratio 10
[2020-12-20] MEDS: HEPARIN 5,000 UNIT/1 ML VIAL SUB-Q SCH ×2 (09:48→21:31)
[2020-12-20] MEDS: FOLIC ACID 1 MG TAB PO SCH (09:48)
[2020-12-20] MEDS: PANTOPRAZOLE 40 MG TAB PO SCH (09:48)
[2020-12-20] MEDS: METOPROLOL TARTRATE 25 MG TAB PO SCH ×2 (09:48→21:29)
[2020-12-20] MEDS: NICOTINE 14 MG/24 HR PATCH TD SCH (09:49)
[2020-12-20] MEDS: CYANOCOBALAMIN (VIT B-12) 100 MCG TAB PO SCH (09:49)
--- NOTE | 2020-12-20 11:19 | Progress Note ---
Assessment and Plan Assessment and plan: 60-year-old -Mac[place] male with history of hypertension, alcoholism, hyperlipidemia, recurrent pancreatitis who was previously admitted on 11/19/2020 with complaints of acute episode of abdominal pain radiating to the left side to the back x3-4 days and alcohol withdrawal symptoms. He was found to have acute pancreatitis secondary to alcohol abuse. His course was complicated by JOHN, hypernatremia, UTI, and sepsis secondary to pancreatic duct leak. On 12/05 he underwent drainage catheter placement in left upper quadrant. On 12/12 MRCP was done and showed pancreatic duct irregularities. He was seen and evaluated by urology, general surgery, and ID. On 12/16 patient was transferred to [facility] to be seen by interventional GI (Dr. Alfie Villalobos) for possible ERCP. Dr. Alfie Villalobos evaluate patient and decided there is no role for ERCP at this time. Initial management should be geared towards resolution of fluid collection and percutaneous drain management per IR, with recommendations to flush drains with 20-30 cc of H2O twice daily, and follow-up with GI as outpatient in 4 to 6 weeks. Patient was transferred back to [facility] for further evaluation and treatment. Midline was placed at [facility] with anticipation of long-term (4 to 6 weeks) IV ABX. At the time of my examination patient is resting comfortably in bed. Endorses mild generalized abdominal discomfort worse in left upper quadrant area. He has no complaints at this time. Denies fever, chills, nausea, vomiting, headache, dysuria, hematuria, or constipation 12/20: Continue supportive care, Complete abx as recommended by ID, CM following and arranging for SNF placement. Bacterial sepsis secondary to pancreatic leak -large multifocal fluid and gas collections in the abdomen. -12/02 IR drainage with about 500 cc of pinkish material drained -12/05 CT-guided placement of 8 Cambodian drainage catheter in left upper quadrant fluid -12/13/2020 LUQ drainage cultures: MDR E.coli resistant to zosyn, amp, FQ, ce fazolin -12/15/2020 started on meropenem due to MDR E. 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 -Will likely need follow-up CT abdomen pelvis in 4 to 6 weeks to determine optimal timing of removal of drains -Recommends outpatient GI follow-up [facility] in [place], [place] ([phone]) -Readmitted back to [facility] on 12/19 HTN -Monitor BP -Resume metoprolol 12.5 twice daily EtOH Abuse -Last drink unknown -Initiate CIWA protocol -Continue p.o. thiamine and Folic Acid -On D5 06/15 NS -Counseled for cessation abuse Tobacco abuse -Current every day smoker -Counseled for cessation -Nicotine patch when necessary DVT and GI PPX -On Protonix and Heparin History Interval history: Patient seen and examined, sitting up on the chair, no new complaints. Hospitalist Physical - Physical exam Narrative exam: Physical exam General appearance: Present: No acute distress, alert and oriented 3, older adult male - EENT Eyes: Present: PERRL, EOM intact ENT: hearing intact, normal dentition - Neck Neck: Present: supple, normal ROM - Respiratory Respiratory effort: Non-labored Respiratory: Clear throughout - Cardiovascular Heart rate: 90 (bpm) Rhythm: Sinus Heart Sounds: Present: S1 & S2. Absent: rub, click - Extremities Extremities: no ischemia, pulses intact,, left upper extremity midline - Peripheral Assessment Peripheral Pulses: within normal limits - Abdominal General gastrointestinal: soft, left upper quadrant abdominal catheter noted with discolored fluid, abdominal tenderness, worse in left upper quadrant, normal bowel sounds - Integumentary Integumentary: Present: warm, dry - Musculoskeletal Musculoskeletal: Able to move all extremities -Neurological Neurological: CN II-XII intact - Psychiatric Psychiatric: Appropriate for situation ,cooperative - Constitutional Vitals: Temp Pulse Resp BP Pulse Ox 97.9 F 85 16 126/78 99 12/20/20 04:53 12/19/20 21:32 12/20/20 04:53 12/20/20 04:53 12/19/20 20:18 Results - Labs CBC & Chem 7: 12/19/20 01:34 12/20/20 06:49 Labs: Laboratory Last Values WBC 7.1 K/mm3 (4.5-11.0) 12/19/20 01:34 RBC 3.18 M/mm3 (3.65-5.03) L 12/19/20 01:34 Hgb 8.4 gm/dl (11.8-15.2) L 12/19/20 01:34 Hct 25.0 % (35.5-45.6) L 12/19/20 01:34 MCV 79 fl (84-94) L 12/19/20 01:34 MCH 26 pg (28-32) L 12/19/20 01:34 MCHC 34 % (32-34) 12/19/20 01:34 RDW 18.9 % (13.2-15.2) H 12/19/20 01:34 Plt Count 281 K/mm3 (140-440) 12/19/20 01:34 Lymph % (Auto) 16.9 % (13.4-35.0) 12/19/20 01:34 [place] % (Auto) 12.3 % (0.0-7.3) H 12/19/20 01:34 Eos % (Auto) 0.8 % (0.0-4.3) 12/19/20 01:34 Baso % (Auto) 1.3 % (0.0-1.8) 12/19/20 01:34 Lymph # (Auto) 1.2 K/mm3 (1.2-5.4) 12/19/20 01:34 [place] # (Auto) 0.9 K/mm3 (0.0-0.8) H 12/19/20 01:34 Eos # (Auto) 0.1 K/mm3 (0.0-0.4) 12/19/20 01:34 Baso # (Auto) 0.1 K/mm3 (0.0-0.1) 12/19/20 01:34 Seg Neutrophils % 68.7 % (40.0-70.0) 12/19/20 01:34 Seg Neutrophils # 4.8 K/mm3 (1.8-7.7) 12/19/20 01:34 Sodium 135 mmol/L (137-145) L 12/20/20 06:49 Potassium 3.8 mmol/L (3.6-5.0) 12/20/20 06:49 Chloride 101.6 mmol/L (98-107) 12/20/20 06:49 Carbon Dioxide 23 mmol/L (22-30) 12/20/20 06:49 Anion Gap 14 mmol/L 12/20/20 06:49 BUN 3 mg/dL (9-20) L 12/20/20 06:49 Creatinine 0.3 mg/dL (0.8-1.3) L 12/20/20 06:49 Estimated GFR > 60 ml/min 12/20/20 06:49 BUN/Creatinine Ratio 10 % 12/20/20 06:49 Glucose 85 mg/dL (75-100) 12/20/20 06:49 POC Glucose 91 mg/dL (70-105) 12/20/20 06:27 Calcium 8.2 mg/dL (8.4-10.2) L 12/20/20 06:49 Phosphorus 1.50 mg/dL (2.5-4.5) L 12/19/20 01:34 Magnesium 1.30 mg/dL (1.7-2.3) L 12/19/20 01:34 Total Bilirubin 0.30 mg/dL (0.1-1.2) 12/20/20 06:49 AST 11 units/L (5-40) 12/20/20 06:49 ALT < 5 units/L (7-56) L 12/20/20 06:49 Alkaline Phosphatase 124 units/L (35-129) 12/20/20 06:49 Ammonia 41.0 umol/L (25-60) 12/19/20 01:34 Total Protein 5.3 g/dL (6.3-8.2) L 12/20/20 06:49 Albumin 2.4 g/dL (3.9-5) L 12/20/20 06:49 Albumin/Globulin Ratio 0.8 % 12/20/20 06:49 Amylase 42 units/L (27-131) 12/19/20 01:34 Procalcitonin < 0.05 ng/mL (<0.15) 12/19/20 01:34 Microbiology: Microbiology 12/19/20 03:01 Peripheral/Venous Blood Culture - Preliminary Culture in Progress 12/19/20 01:34 Peripheral/Venous Blood Culture - Preliminary Culture in Progress Viramontes/IV: Voiding Method Urinal Active Medications - Current Medications Current Medications: Generic Name Dose Route Start Last Admin Trade Name Freq PRN Reason Stop Dose Admin Acetaminophen 650 mg 12/19/20 00:37 Acetaminophen 325 Mg Tab PO Q4H PRN Pain MILD(1-3)/Fever >100.5/[place] Albuterol 2.5 mg 12/19/20 00:37 Albuterol 2.5 Mg/3 Ml Nebu IH Q3HRT PRN Shortness Of Breath Cyanocobalamin 100 mcg 12/19/20 10:00 12/20/20 09:49 Cyanocobalamin (Vit B-12) 100 Mcg Tab PO 100 mcg QDAY JANNETH Administration Folic Acid 1 mg 12/19/20 10:00 12/20/20 09:48 Folic Acid 1 Mg Tab PO 1 mg QDAY JANNETH Administration Heparin Sodium (Porcine) 5,000 unit 12/19/20 10:00 12/20/20 09:48 Heparin 5,000 Unit/1 Ml Vial SUB-Q 5,000 unit Q12HR JANNETH Administration Hydromorphone HCl 0.5 mg 12/19/20 00:41 12/19/20 21:33 Hydromorphone 1 Mg/1 Ml Inj IV 0.5 mg Q3H PRN Administration Pain , Severe (7-10) Meropenem 2,000 mg/ Sodium 100 mls @ 100 mls/hr 12/19/20 06:00 12/20/20 05:42 Chloride IV 01/12/21 22:59 100 mls/hr Q8HR JANNETH Administration Lorazepam 2 mg 12/19/20 00:46 Lorazepam 2 Mg/Ml Vial IV Q1H PRN CIWA-Ar 8-15 Metoprolol Tartrate 12.5 mg 12/19/20 10:00 12/20/20 09:48 Metoprolol Tartrate 25 Mg Tab PO 12.5 mg BID JANNETH Administration Morphine Sulfate 2 mg 12/19/20 00:41 12/20/20 03:16 Morphine 2 Mg/1 Ml Inj IV 2 mg Q4H PRN Administration Pain, Moderate (4-6) Naloxone HCl 0.1 mg 12/19/20 00:41 Naloxone 0.4 Mg/1 Ml Inj IV Q2MIN PRN Res Rate </= 8 or 02 SAT < 92% Nicotine 14 mg 12/19/20 10:00 12/20/20 09:49 Nicotine 14 Mg/24 Hr Patch TD 14 mg QDAY JANNETH Administration Ondansetron HCl 4 mg 12/19/20 00:37 Ondansetron 4 Mg/2 Ml Inj IV Q6H PRN Nausea And Vomiting Pantoprazole Sodium 40 mg 12/19/20 10:00 12/20/20 09:48 Pantoprazole 40 Mg Tab PO 40 mg DAILY JANNETH Administration Sodium Chloride 10 ml 12/19/20 10:00 12/20/20 09:49 Sodium Chloride 0.9% 10 Ml Flush Syringe IV 10 ml BID JANNETH Administration Sodium Chloride 10 ml 12/19/20 00:37 Sodium Chloride 0.9% 10 Ml Flush Syringe IV PRN PRN LINE FLUSH Sterile Water 1,000 ml 12/19/20 04:55 Water For Irrig Sterile 1,000 Ml Bottle IR DIRECT COUNT INCLUDES THE [facility] Nutrition/Malnutrition Assess - Dietary Evaluation Nutrition/Malnutrition Findings: Nutrition Notes Start: 12/19/20 11:12 Freq: Status: Active Protocol: Document 12/19/20 11:12 (Rec: 12/19/20 11:21 [email or web address]) Nutrition Notes Need for Assessment generated from: MD Order,administration physician,MST Initial or Follow up Assessment Current Diagnosis Hypertension,Hyperlipidemia Other Pertinent Diagnosis hx etoh abuse, infected pancreatic pseudocyst Current Diet Full Liquid, Cardiac, consistent CHO Labs/Tests Na 132 BUN 4 Cr 0.3 Phos 1.5 Mg 1.3 Pertinent Medications B12 Folic acid D5 .45 NS at 75 ml/hr Height 5 ft 10 in Weight 73.7 kg Usual Body Weight 78.7 kg [place] Body Weight (kg) 75.45 BMI 23.3 Intake Prior to Admission Poor Weight change and time frame 6% wt loss in 1 week, per chart Weight Status Appropriate Subjective/Other Information MD consult for malnutrition. RN screen for chewing difficulty, MST and skin risk (Romeo score: 17). Pt reports unable to eat or drink anything except juice since previous discharge. Pt states he can gum almost all foods and does not want mech soft in the future. He knows he has lost weight but was unsure how much. Pt open to Ensure Clears. Burn Absent Trauma Absent GI Symptoms Other Current % PO Negligible Minimum of two criteria Yes Energy Intake (severe) < or equal to 50% Estimated Energy Requirement > or equal to 5 days Interpretation of Weight Loss (severe) >2% in 1 week #1 Nutrition Diagnosis Malnutrition Etiology infected pancreatic pseudocyst As Evidenced by Signs and Symptoms <50% of EER in 5 days, >2% wt loss in one week Is patient on ventilator? No Is Patient Ambulatory and/or Out of Bed No REE-([facility]-confined to bed) 1438.772 Calculation Used for Recommendations [facility] Additional Notes Protein: (1.2-1.5g/kg) 88-111g Fluid: 1 ml/kcal or per MD Nutrition Intervention Change Diet Order: Advance as able Add Supplement/Snack (indicate name/kcal Ensure Clear TID /protein ) Provides kCal: 720 Provides Protein (gm) 24 Goal #1 Meet needs as best as possbile on clera liquid diet Anticipated Discharge Needs: Low fat, no alcohol Follow-Up By: 12/23/20 Additional Comments FU for intakes and ONS tolerance
--- NOTE | 2020-12-20 14:15 | Progress Note ---
Assessment and Plan Cultures: 11/27/2020 COVID-19 PCR: Negative 11/19/2020 blood culture: No growth 11/19/2020 urine culture: E. coli 12/01/2020 blood culture: No growth 12/01/2020 urine culture: Enterococcus faecium (VRE) 12/02/2020 IR drainage culture: E.coli 12/05/2020 LUQ drainage cultures: E.coli 12/13/2020 LUQ drainage cultures: MDR E.coli resistant to zosyn, amp, FQ, A/P: 60-year-old male with gastroesophageal reflux disease, hypertension, hyperlipidemia, alcohol abuse admitted to the hospital on 11/19/2020 with ab dominal pain from suspected pancreatitis and alcohol withdrawal: #Sepsis: Source: large multifocal fluid and gas collections in the abdomen. #Large multifocal infected pancreatic pseudocyst: etiology initially was suspected R renal calyceal rupture causing urinary leak v/s infected pancreatic pseudocyst. Urology evaluated and IR following. Underwent IR drainage 12/02/2020 with about 500 cc of pinkish material drained. Additional CT-guided placement of 8 Greek drainage catheter in left upper quadrant fluid collection with 180 mL of purulent urine aspirated on 12/05/2020. Repeat CT on 12/11/2020 with multiple encapsulated fluid collections, some decreased while some increased. Suspected pancreatic pseudocyst due to pancreatic duct disruption, noted on abdominal MRI. Fluid amylase was high. S/p Fluoroscopic guided evaluation and exchange of posterior drainage catheter with a total of 50 mL of additional obtained purulent fluid aspirated. Also, Fluoroscopic guided advanced duration and exchange of anterior drainage catheter with a total of 60 mL of additional purulent fluid aspirated. 12/13/2020 LUQ drainage cultures: MDR E.coli resistant to zosyn, amp, FQ, cefazolin. CRP=13. Status post Zosyn IV for 14 days improved 12/15/2020 (changed to meropenem due to MDR E. coli resistant to). Now returned from [facility], no acute intervention occurred. #Subcapsular splenic collection: new, etiology unclear, likely related to above. #Acute alcohol withdrawal, chronic alcohol abuse #JOHN: Resolved #VRE UTI: s/p abx. Zyvox for UTI completed Recs: -Continue meropenem 2 g IV q 8 hours, duration 4 weeks -midline in place -Case management consulted for meropenem 2g q8h until 01/11/2021 -OK for DC when home antibiotics arranged. ID will sign off. Please call with questions. Jud Garzon MD [facility] ([facility]) O: [phone] F: [phone] Subjective Date of service: 12/20/20 Interval history: Afebrile, no acute change. Cultures remain negative. Objective - Exam Narrative Exam: Physical Exam: Constitutional: Alert, cooperative. No acute distress Head, Ears, Nose: Normocephalic, atraumatic. Eyes: Conjunctivae/corneas clear. No icterus. No ptosis. Neck: Supple, no meningeal signs Oral: dentition fair, no thrush Cardiovascular: S1, S2 normal. Respiratory: Good air entry, clear to auscultation bilaterally GI: Soft, non-tender; bowel sounds normal. No peritoneal signs. Musculoskeletal: No pedal edema, no cyanosis. Skin: No rash or abscess Hem/Lymphatic: No palpable cervical or supraclavicular nodes. No lymphangitis Psych: Mood ok. Affect normal Neurological: Awake, alert, oriented. No gross abnormality - Constitutional Vitals: Vital Signs Temp Pulse Resp BP Pulse Ox 97.9 F 85 16 126/78 99 12/20/20 04:53 12/19/20 21:32 12/20/20 04:53 12/20/20 04:53 12/19/20 20:18 Temperature -Last 24 Hours Temperature 97.9 F Temperature 99.4 F Temperature 98.7 F - Labs CBC & Chem 7: 12/19/20 01:34 12/20/20 06:49 Labs: Abnormal lab results 12/20/20 12/20/20 Range/Units 06:49 11:44 Sodium 135 L (137-145) mmol/L BUN 3 L (9-20) mg/dL Creatinine 0.3 L (0.8-1.3) mg/dL POC Glucose 112 H (70-105) mg/dL Calcium 8.2 L (8.4-10.2) mg/dL ALT < 5 L (7-56) units/L Total Protein 5.3 L (6.3-8.2) g/dL Albumin 2.4 L (3.9-5) g/dL
[2020-12-21] MEDS: MEROPENEM 2,000 MG in SODIUM CHLORIDE 0.9% 100 ML IV SCH ×3 (05:44→21:31)
--- NOTE | 2020-12-21 08:36 | Progress Note ---
Assessment and Plan Assessment and plan: 60-year-old -Luxembourger male with history of hypertension, alcoholism, hyperlipidemia, recurrent pancreatitis who was previously admitted on 11/19/2020 with complaints of acute episode of abdominal pain radiating to the left side to the back x3-4 days and alcohol withdrawal symptoms. He was found to have acute pancreatitis secondary to alcohol abuse. His course was complicated by JOHN, hypernatremia, UTI, and sepsis secondary to pancreatic duct leak. On 12/05 he underwent drainage catheter placement in left upper quadrant. On 12/12 MRCP was done and showed pancreatic duct irregularities. He was seen and evaluated by urology, general surgery, and ID. On 12/16 patient was transferred to [facility] to be seen by interventional GI (Dr. Alfie Villalobos) for possible ERCP. Dr. Alfie Villalobos evaluate patient and decided there is no role for ERCP at this time. Initial management should be geared towards resolution of fluid collection and percutaneous drain management per IR, with recommendations to flush drains with 20-30 cc of H2O twice daily, and follow-up with GI as outpatient in 4 to 6 weeks. Patient was transferred back to [facility] for further evaluation and treatment. Midline was placed at [facility] with anticipation of long-term (4 to 6 weeks) IV ABX. At the time of my examination patient is resting comfortably in bed. Endorses mild generalized abdominal discomfort worse in left upper quadrant area. He has no complaints at this time. Denies fever, chills, nausea, vomiting, headache, dysuria, hematuria, or constipation 12/20: Continue supportive care, Complete abx as recommended by ID, CM following and arranging for SNF placement. 12/21: We will give a bolus of 500 cc fluids. Monitor nausea. Antiemetics if needed., continue PT/OT, Continue working on home antibiotics. Bacterial sepsis secondary to pancreatic leak -large multifocal fluid and gas collections in the abdomen. -12/02 IR drainage with about 500 cc of pinkish material drained -12/05 CT-guided placement of 8 Wolof drainage catheter in left upper quadrant fluid -12/13/2020 LUQ drainage cultures: MDR E.coli resistant to zosyn, amp, FQ, cefazolin -12/15/2020 started on meropenem due to MDR E. 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 -Will likely need follow-up CT abdomen pelvis in 4 to 6 weeks to determine optimal timing of removal of drains -Recommends outpatient GI follow-up [facility] in [place], [place] ([phone]) -Readmitted back to [facility] on 12/19 HTN -Monitor BP -Resume metoprolol 12.5 twice daily EtOH Abuse -Last drink unknown -Initiate CIWA protocol -Continue p.o. thiamine and Folic Acid -On D5 06/15 NS -Counseled for cessation abuse Tobacco abuse -Current every day smoker -Counseled for cessation -Nicotine patch when necessary DVT and GI PPX -On Protonix and Heparin History Interval history: Patient seen and examined, sitting up on the chair, states he feels nauseous. And poor appetite. Nurse reports that his blood pressure is a little low with no reflex tachycardia noted beta-elicia held Hospitalist Physical - Physical exam Narrative exam: Physical exam General appearance: Present: No acute distress, alert and oriented 3, older adult male - EENT Eyes: Present: PERRL, EOM intact ENT: hearing intact, normal dentition - Neck Neck: Present: supple, normal ROM - Respiratory Respiratory effort: Non-labored Respiratory: Clear throughout - Cardiovascular Heart rate: 90 (bpm) Rhythm: Sinus Heart Sounds: Present: S1 & S2. Absent: rub, click - Extremities Extremities: no ischemia, pulses intact,, left upper extremity midline - Peripheral Assessment Peripheral Pulses: within normal limits - Abdominal General gastrointestinal: soft, left upper quadrant abdominal catheter noted with discolored fluid, abdominal tenderness, worse in left upper quadrant, normal bowel sounds - Integumentary Integumentary: Present: warm, dry - Musculoskeletal Musculoskeletal: Able to move all extremities -Neurological Neurological: CN II-XII intact - Psychiatric Psychiatric: Appropriate for situation ,cooperative - Constitutional Vitals: Temp Pulse Resp BP Pulse Ox 98.2 F 97 H 17 121/80 99 12/20/20 20:49 12/20/20 21:29 07/09/21 22:01 12/20/20 21:29 12/19/20 20:18 Results - Labs CBC & Chem 7: 12/19/20 01:34 12/20/20 06:49 Labs: Laboratory Last Values WBC 7.1 K/mm3 (4.5-11.0) 12/19/20 01:34 RBC 3.18 M/mm3 (3.65-5.03) L 12/19/20 01:34 Hgb 8.4 gm/dl (11.8-15.2) L 12/19/20 01:34 Hct 25.0 % (35.5-45.6) L 12/19/20 01:34 MCV 79 fl (84-94) L 12/19/20 01:34 MCH 26 pg (28-32) L 12/19/20 01:34 MCHC 34 % (32-34) 12/19/20 01:34 RDW 18.9 % (13.2-15.2) H 12/19/20 01:34 Plt Count 281 K/mm3 (140-440) 12/19/20 01:34 Lymph % (Auto) 16.9 % (13.4-35.0) 12/19/20 01:34 Tillman % (Auto) 12.3 % (0.0-7.3) H 12/19/20 01:34 Eos % (Auto) 0.8 % (0.0-4.3) 12/19/20 01:34 Baso % (Auto) 1.3 % (0.0-1.8) 12/19/20 01:34 Lymph # (Auto) 1.2 K/mm3 (1.2-5.4) 12/19/20 01:34 Tillman # (Auto) 0.9 K/mm3 (0.0-0.8) H 12/19/20 01:34 Eos # (Auto) 0.1 K/mm3 (0.0-0.4) 12/19/20 01:34 Baso # (Auto) 0.1 K/mm3 (0.0-0.1) 12/19/20 01:34 Seg Neutrophils % 68.7 % (40.0-70.0) 12/19/20 01:34 Seg Neutrophils # 4.8 K/mm3 (1.8-7.7) 12/19/20 01:34 Sodium 135 mmol/L (137-145) L 12/20/20 06:49 Potassium 3.8 mmol/L (3.6-5.0) 12/20/20 06:49 Chloride 101.6 mmol/L (98-107) 12/20/20 06:49 Carbon Dioxide 23 mmol/L (22-30) 12/20/20 06:49 Anion Gap 14 mmol/L 12/20/20 06:49 BUN 3 mg/dL (9-20) L 12/20/20 06:49 Creatinine 0.3 mg/dL (0.8-1.3) L 12/20/20 06:49 Estimated GFR > 60 ml/min 12/20/20 06:49 BUN/Creatinine Ratio 10 % 12/20/20 06:49 Glucose 85 mg/dL (75-100) 12/20/20 06:49 POC Glucose 90 mg/dL (70-105) 12/21/20 07:21 Calcium 8.2 mg/dL (8.4-10.2) L 12/20/20 06:49 Phosphorus 1.50 mg/dL (2.5-4.5) L 12/19/20 01:34 Magnesium 1.30 mg/dL (1.7-2.3) L 12/19/20 01:34 Total Bilirubin 0.30 mg/dL (0.1-1.2) 12/20/20 06:49 AST 11 units/L (5-40) 12/20/20 06:49 ALT < 5 units/L (7-56) L 12/20/20 06:49 Alkaline Phosphatase 124 units/L (35-129) 12/20/20 06:49 Ammonia 41.0 umol/L (25-60) 12/19/20 01:34 Total Protein 5.3 g/dL (6.3-8.2) L 12/20/20 06:49 Albumin 2.4 g/dL (3.9-5) L 12/20/20 06:49 Albumin/Globulin Ratio 0.8 % 12/20/20 06:49 Amylase 42 units/L (27-131) 12/19/20 01:34 Procalcitonin < 0.05 ng/mL (<0.15) 12/19/20 01:34 Microbiology: Microbiology 12/19/20 03:01 Peripheral/Venous Blood Culture - Preliminary NO GROWTH AFTER 24 HOURS 12/19/20 01:34 Peripheral/Venous Blood Culture - Preliminary NO GROWTH AFTER 24 HOURS Viramontes/IV: Voiding Method Urinal Active Medications - Current Medications Current Medications: Generic Name Dose Route Start Last Admin Trade Name Freq PRN Reason Stop Dose Admin Acetaminophen 650 mg 12/19/20 00:37 Acetaminophen 325 Mg Tab PO Q4H PRN Pain MILD(1-3)/Fever >100.5/[place] Albuterol 2.5 mg 12/19/20 00:37 Albuterol 2.5 Mg/3 Ml Nebu IH Q3HRT PRN Shortness Of Breath Cyanocobalamin 100 mcg 12/19/20 10:00 12/20/20 09:49 Cyanocobalamin (Vit B-12) 100 Mcg Tab PO 100 mcg QDAY JANNETH Administration Folic Acid 1 mg 12/19/20 10:00 12/20/20 09:48 Folic Acid 1 Mg Tab PO 1 mg QDAY JANNETH Administration Heparin Sodium (Porcine) 5,000 unit 12/19/20 10:00 12/20/20 21:31 Heparin 5,000 Unit/1 Ml Vial SUB-Q 5,000 unit Q12HR JANNETH Administration Hydromorphone HCl 0.5 mg 12/19/20 00:41 12/19/20 21:33 Hydromorphone 1 Mg/1 Ml Inj IV 0.5 mg Q3H PRN Administration Pain , Severe (7-10) Meropenem 2,000 mg/ Sodium 100 mls @ 100 mls/hr 12/19/20 06:00 12/21/20 05:44 Chloride IV 01/11/21 22:59 100 mls/hr Q8HR JANNETH Administration Lorazepam 2 mg 12/19/20 00:46 Lorazepam 2 Mg/Ml Vial IV Q1H PRN CIWA-Ar 8-15 Metoprolol Tartrate 12.5 mg 12/19/20 10:00 12/20/20 21:29 Metoprolol Tartrate 25 Mg Tab PO 12.5 mg BID JANNETH Administration Morphine Sulfate 2 mg 12/19/20 00:41 12/20/20 21:31 Morphine 2 Mg/1 Ml Inj IV 2 mg Q4H PRN Administration Pain, Moderate (4-6) Naloxone HCl 0.1 mg 12/19/20 00:41 Naloxone 0.4 Mg/1 Ml Inj IV Q2MIN PRN Res Rate </= 8 or 02 SAT < 92% Nicotine 14 mg 12/19/20 10:00 12/20/20 09:49 Nicotine 14 Mg/24 Hr Patch TD 14 mg QDAY JANNETH Administration Ondansetron HCl 4 mg 12/19/20 00:37 Ondansetron 4 Mg/2 Ml Inj IV Q6H PRN Nausea And Vomiting Pantoprazole Sodium 40 mg 12/19/20 10:00 12/20/20 09:48 Pantoprazole 40 Mg Tab PO 40 mg DAILY JANNETH Administration Sodium Chloride 10 ml 12/19/20 10:00 12/20/20 21:28 Sodium Chloride 0.9% 10 Ml Flush Syringe IV 10 ml BID JANNETH Administration Sodium Chloride 10 ml 12/19/20 00:37 Sodium Chloride 0.9% 10 Ml Flush Syringe IV PRN PRN LINE FLUSH Sterile Water 1,000 ml 12/19/20 04:55 Water For Irrig Sterile 1,000 Ml Bottle IR DIRECT [facility] Nutrition/Malnutrition Assess - Dietary Evaluation Nutrition/Malnutrition Findings: Nutrition Notes Start: 12/19/20 11:12 Freq: Status: Active Protocol: Document 12/19/20 11:12 (Rec: 12/19/20 11:21 [id number]) Nutrition Notes Need for Assessment generated from: MD Order,certified ethical hacker,MST Initial or Follow up Assessment Current Diagnosis Hypertension,Hyperlipidemia Other Pertinent Diagnosis hx etoh abuse, infected pancreatic pseudocyst Current Diet Full Liquid, Cardiac, consistent CHO Labs/Tests Na 132 BUN 4 Cr 0.3 Phos 1.5 Mg 1.3 Pertinent Medications B12 Folic acid D5 .45 NS at 75 ml/hr Height 5 ft 10 in Weight 73.7 kg Usual Body Weight 78.7 kg Pillow Body Weight (kg) 75.45 BMI 23.3 Intake Prior to Admission Poor Weight change and time frame 6% wt loss in 1 week, per chart Weight Status Appropriate Subjective/Other Information MD consult for malnutrition. RN screen for chewing difficulty, MST and skin risk (Romeo score: 17). Pt reports unable to eat or drink anything except juice since previous discharge. Pt states he can gum almost all foods and does not want mech soft in the future. He knows he has lost weight but was unsure how much. Pt open to Ensure Clears. Burn Absent Trauma Absent GI Symptoms Other Current % PO Negligible Minimum of two criteria Yes Energy Intake (severe) < or equal to 50% Estimated Energy Requirement > or equal to 5 days Interpretation of Weight Loss (severe) >2% in 1 week #1 Nutrition Diagnosis Malnutrition Etiology infected pancreatic pseudocyst As Evidenced by Signs and Symptoms <50% of EER in 5 days, >2% wt loss in one week Is patient on ventilator? No Is Patient Ambulatory and/or Out of Bed No REE-([facility]-confined to bed) [phone] Calculation Used for Recommendations [facility] Additional Notes Protein: (1.2-1.5g/kg) 88-111g Fluid: 1 ml/kcal or per MD Nutrition Intervention Change Diet Order: Advance as able Add Supplement/Snack (indicate name/kcal Ensure Clear TID /protein ) Provides kCal: 720 Provides Protein (gm) 24 Goal #1 Meet needs as best as possbile on clera liquid diet Anticipated Discharge Needs: Low fat, no alcohol Follow-Up By: 12/23/20 Additional Comments FU for intakes and ONS tolerance
[2020-12-21] MEDS: HEPARIN 5,000 UNIT/1 ML VIAL SUB-Q SCH ×2 (10:01→21:31)
[2020-12-21] MEDS: PANTOPRAZOLE 40 MG TAB PO SCH (10:01)
[2020-12-21] MEDS: CYANOCOBALAMIN (VIT B-12) 100 MCG TAB PO SCH (10:01)
[2020-12-21] MEDS: NICOTINE 14 MG/24 HR PATCH TD SCH (10:03)
[2020-12-21] MEDS: FOLIC ACID 1 MG TAB PO SCH (10:03)
[2020-12-21] MEDS: METOPROLOL TARTRATE 25 MG TAB PO SCH ×2 (10:14→21:32)
[2020-12-21] MEDS ORDERED: SODIUM CHLORIDE 0.9% 500 ML 500 ML IV SCH (12:00)
[2020-12-21] MEDS: MORPHINE 2 MG/1 ML INJ IV PRN ×2 (13:33→20:52)
[2020-12-22] MEDS: MEROPENEM 2,000 MG in SODIUM CHLORIDE 0.9% 100 ML IV SCH ×3 (05:59→22:20)
[2020-12-22] MEDS: NICOTINE 14 MG/24 HR PATCH TD SCH (09:11)
[2020-12-22] MEDS: HEPARIN 5,000 UNIT/1 ML VIAL SUB-Q SCH ×3 (09:11→22:15)
[2020-12-22] MEDS: CYANOCOBALAMIN (VIT B-12) 100 MCG TAB PO SCH (09:11)
[2020-12-22] MEDS: FOLIC ACID 1 MG TAB PO SCH (09:11)
[2020-12-22] MEDS: PANTOPRAZOLE 40 MG TAB PO SCH (09:11)
[2020-12-22] MEDS: METOPROLOL TARTRATE 25 MG TAB PO SCH ×3 (09:12→22:16)
[2020-12-22] MEDS: MORPHINE 2 MG/1 ML INJ IV PRN (09:12)
--- NOTE | 2020-12-22 09:58 | Progress Note ---
Assessment and Plan Assessment and plan: 60-year-old -[place] Islander male with history of hypertension, alcoholism, hyperlipidemia, recurrent pancreatitis who was previously admitted on 11/19/2020 with complaints of acute episode of abdominal pain radiating to the left side to the back x3-4 days and alcohol withdrawal symptoms. He was found to have acute pancreatitis secondary to alcohol abuse. His course was complicated by JOHN, hypernatremia, UTI, and sepsis secondary to pancreatic duct leak. On 12/05 he underwent drainage catheter placement in left upper quadrant. On 12/12 MRCP was done and showed pancreatic duct irregularities. He was seen and evaluated by urology, general surgery, and ID. On 12/16 patient was transferred to [facility] to be seen by interventional GI (Dr. Alfie Villalobos) for possible ERCP. Dr. Alfie Villalobos evaluate patient and decided there is no role for ERCP at this time. Initial management should be geared towards resolution of fluid collection and percutaneous drain management per IR, with recommendations to flush drains with 20-30 cc of H2O twice daily, and follow-up with GI as outpatient in 4 to 6 weeks. Patient was transferred back to [facility] for further evaluation and treatment. Midline was placed at [facility] with anticipation of long-term (4 to 6 weeks) IV ABX. At the time of my examination patient is resting comfortably in bed. Endorses mild generalized abdominal discomfort worse in left upper quadrant area. He has no complaints at this time. Denies fever, chills, nausea, vomiting, headache, dysuria, hematuria, or constipation 12/20: Continue supportive care, Complete abx as recommended by JANA CHAVEZ following and arranging for SNF placement. 12/21: We will give a bolus of 500 cc fluids. Monitor nausea. Antiemetics if needed., continue PT/OT, Continue working on home antibiotics. 12/22: Patient clinically stable FLORA drain continues to drain Case management continues to work on placement. Bacterial sepsis secondary to pancreatic leak -large multifocal fluid and gas collections in the abdomen. -12/02 IR drainage with about 500 cc of pinkish material drained -12/05 CT-guided placement of 8 Wolof drainage catheter in left upper quadrant fluid -12/13/2020 LUQ drainage cultures: MDR E.coli resistant to zosyn, amp, FQ, cefazolin -12/15/2020 started on meropenem due to MDR E. 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 -Will likely need follow-up CT abdomen pelvis in 4 to 6 weeks to determine optimal timing of removal of drains -Recommends outpatient GI follow-up [facility] in [place], [place] ([phone]) -Readmitted back to [facility] on 12/19 HTN -Monitor BP -Resume metoprolol 12.5 twice daily EtOH Abuse -Last drink unknown -Initiate CIWA protocol -Continue p.o. thiamine and Folic Acid -On D5 06/15 NS -Counseled for cessation abuse Tobacco abuse -Current every day smoker -Counseled for cessation -Nicotine patch when necessary DVT and GI PPX -On Protonix and Heparin History Interval history: Patient seen and examined, in bed, no new complaints. Wants to know when he will be discharged Hospitalist Physical - Physical exam Narrative exam: Physical exam General appearance: Present: No acute distress, alert and oriented 3, older adult male - EENT Eyes: Present: PERRL, EOM intact ENT: hearing intact, normal dentition - Neck Neck: Present: supple, normal ROM - Respiratory Respiratory effort: Non-labored Respiratory: Clear throughout - Cardiovascular Heart rate: 90 (bpm) Rhythm: Sinus Heart Sounds: Present: S1 & S2. Absent: rub, click - Extremities Extremities: no ischemia, pulses intact,, left upper extremity midline - Peripheral Assessment Peripheral Pulses: within normal limits - Abdominal General gastrointestinal: soft, left upper quadrant abdominal catheter noted with discolored fluid,non tender abdomen, FLORA drain well, normal bowel sounds - Integumentary Integumentary: Present: warm, dry - Musculoskeletal Musculoskeletal: Able to move all extremities -Neurological Neurological: CN II-XII intact - Psychiatric Psychiatric: Appropriate for situation ,cooperative - Constitutional Vitals: Temp Pulse Resp BP Pulse Ox 98.7 F 84 20 113/81 100 12/22/20 05:05 12/22/20 05:05 12/22/20 05:05 12/22/20 05:05 12/22/20 05:05 Results - Labs CBC & Chem 7: 12/19/20 01:34 12/20/20 06:49 Labs: Laboratory Last Values WBC 7.1 K/mm3 (4.5-11.0) 12/19/20 01:34 RBC 3.18 M/mm3 (3.65-5.03) L 12/19/20 01:34 Hgb 8.4 gm/dl (11.8-15.2) L 12/19/20 01:34 Hct 25.0 % (35.5-45.6) L 12/19/20 01:34 MCV 79 fl (84-94) L 12/19/20 01:34 MCH 26 pg (28-32) L 12/19/20 01:34 MCHC 34 % (32-34) 12/19/20 01:34 RDW 18.9 % (13.2-15.2) H 12/19/20 01:34 Plt Count 281 K/mm3 (140-440) 12/19/20 01:34 Lymph % (Auto) 16.9 % (13.4-35.0) 12/19/20 01:34 [place] % (Auto) 12.3 % (0.0-7.3) H 12/19/20 01:34 Eos % (Auto) 0.8 % (0.0-4.3) 12/19/20 01:34 Baso % (Auto) 1.3 % (0.0-1.8) 12/19/20 01:34 Lymph # (Auto) 1.2 K/mm3 (1.2-5.4) 12/19/20 01:34 [place] # (Auto) 0.9 K/mm3 (0.0-0.8) H 12/19/20 01:34 Eos # (Auto) 0.1 K/mm3 (0.0-0.4) 12/19/20 01:34 Baso # (Auto) 0.1 K/mm3 (0.0-0.1) 12/19/20 01:34 Seg Neutrophils % 68.7 % (40.0-70.0) 12/19/20 01:34 Seg Neutrophils # 4.8 K/mm3 (1.8-7.7) 12/19/20 01:34 Sodium 135 mmol/L (137-145) L 12/20/20 06:49 Potassium 3.8 mmol/L (3.6-5.0) 12/20/20 06:49 Chloride 101.6 mmol/L (98-107) 12/20/20 06:49 Carbon Dioxide 23 mmol/L (22-30) 12/20/20 06:49 Anion Gap 14 mmol/L 12/20/20 06:49 BUN 3 mg/dL (9-20) L 12/20/20 06:49 Creatinine 0.3 mg/dL (0.8-1.3) L 12/20/20 06:49 Estimated GFR > 60 ml/min 12/20/20 06:49 BUN/Creatinine Ratio 10 % 12/20/20 06:49 Glucose 85 mg/dL (75-100) 12/20/20 06:49 POC Glucose 94 mg/dL (70-105) 12/22/20 05:11 Calcium 8.2 mg/dL (8.4-10.2) L 12/20/20 06:49 Phosphorus 1.50 mg/dL (2.5-4.5) L 12/19/20 01:34 Magnesium 1.30 mg/dL (1.7-2.3) L 12/19/20 01:34 Total Bilirubin 0.30 mg/dL (0.1-1.2) 12/20/20 06:49 AST 11 units/L (5-40) 12/20/20 06:49 ALT < 5 units/L (7-56) L 12/20/20 06:49 Alkaline Phosphatase 124 units/L (35-129) 12/20/20 06:49 Ammonia 41.0 umol/L (25-60) 12/19/20 01:34 Total Protein 5.3 g/dL (6.3-8.2) L 12/20/20 06:49 Albumin 2.4 g/dL (3.9-5) L 12/20/20 06:49 Albumin/Globulin Ratio 0.8 % 12/20/20 06:49 Amylase 42 units/L (27-131) 12/19/20 01:34 Procalcitonin < 0.05 ng/mL (<0.15) 12/19/20 01:34 Coronavirus (PCR) Negative (Negative) 12/21/20 Unknown Microbiology: Microbiology 12/19/20 03:01 Peripheral/Venous Blood Culture - Preliminary NO GROWTH AFTER 48 HOURS 12/19/20 01:34 Peripheral/Venous Blood Culture - Preliminary NO GROWTH AFTER 48 HOURS Viramontes/IV: Voiding Method Urinal Active Medications - Current Medications Current Medications: Generic Name Dose Route Start Last Admin Trade Name Freq PRN Reason Stop Dose Admin Acetaminophen 650 mg 12/19/20 00:37 Acetaminophen 325 Mg Tab PO Q4H PRN Pain MILD(1-3)/Fever >100.5/[place] Albuterol 2.5 mg 12/19/20 00:37 Albuterol 2.5 Mg/3 Ml Nebu IH Q3HRT PRN Shortness Of Breath Cyanocobalamin 100 mcg 12/19/20 10:00 12/22/20 09:11 Cyanocobalamin (Vit B-12) 100 Mcg Tab PO 100 mcg QDAY JANNETH Administration Folic Acid 1 mg 12/19/20 10:00 12/22/20 09:11 Folic Acid 1 Mg Tab PO 1 mg QDAY JANNETH Administration Heparin Sodium (Porcine) 5,000 unit 12/19/20 10:00 12/22/20 09:11 Heparin 5,000 Unit/1 Ml Vial SUB-Q 5,000 unit Q12HR JANNETH Administration Hydromorphone HCl 0.5 mg 12/19/20 00:41 12/19/20 21:33 Hydromorphone 1 Mg/1 Ml Inj IV 0.5 mg Q3H PRN Administration Pain , Severe (7-10) Meropenem 2,000 mg/ Sodium 100 mls @ 100 mls/hr 12/19/20 06:00 12/22/20 05:59 Chloride IV 01/11/21 22:59 100 mls/hr Q8HR JANNETH Administration Lorazepam 2 mg 12/19/20 00:46 Lorazepam 2 Mg/Ml Vial IV Q1H PRN CIWA-Ar 8-15 Metoprolol Tartrate 12.5 mg 12/19/20 10:00 12/22/20 09:12 Metoprolol Tartrate 25 Mg Tab PO 12.5 mg BID JANNETH Administration Morphine Sulfate 2 mg 12/19/20 00:41 12/22/20 09:12 Morphine 2 Mg/1 Ml Inj IV 2 mg Q4H PRN Administration Pain, Moderate (4-6) Naloxone HCl 0.1 mg 12/19/20 00:41 Naloxone 0.4 Mg/1 Ml Inj IV Q2MIN PRN Res Rate </= 8 or 02 SAT < 92% Nicotine 14 mg 12/19/20 10:00 12/22/20 09:11 Nicotine 14 Mg/24 Hr Patch TD 14 mg QDAY JANNETH Administration Ondansetron HCl 4 mg 12/19/20 00:37 Ondansetron 4 Mg/2 Ml Inj IV Q6H PRN Nausea And Vomiting Pantoprazole Sodium 40 mg 12/19/20 10:00 12/22/20 09:11 Pantoprazole 40 Mg Tab PO 40 mg DAILY JANNETH Administration Sodium Chloride 10 ml 12/19/20 10:00 12/22/20 09:12 Sodium Chloride 0.9% 10 Ml Flush Syringe IV 10 ml BID JANNETH Administration Sodium Chloride 10 ml 12/19/20 00:37 Sodium Chloride 0.9% 10 Ml Flush Syringe IV PRN PRN LINE FLUSH Sterile Water 1,000 ml 12/19/20 04:55 Water For Irrig Sterile 1,000 Ml Bottle IR DIRECT [facility] Nutrition/Malnutrition Assess - Dietary Evaluation Nutrition/Malnutrition Findings: Nutrition Notes Start: 12/19/20 11:12 Freq: Status: Active Protocol: Document 12/19/20 11:12 (Rec: 12/19/20 11:21 [id number]) Nutrition Notes Need for Assessment generated from: MD Order,body worker,MST Initial or Follow up Assessment Current Diagnosis Hypertension,Hyperlipidemia Other Pertinent Diagnosis hx etoh abuse, infected pancreatic pseudocyst Current Diet Full Liquid, Cardiac, consistent CHO Labs/Tests Na 132 BUN 4 Cr 0.3 Phos 1.5 Mg 1.3 Pertinent Medications B12 Folic acid D5 .45 NS at 75 ml/hr Height 5 ft 10 in Weight 73.7 kg Usual Body Weight 78.7 kg [place] Body Weight (kg) 75.45 BMI 23.3 Intake Prior to Admission Poor Weight change and time frame 6% wt loss in 1 week, per chart Weight Status Appropriate Subjective/Other Information MD consult for malnutrition. RN screen for chewing difficulty, MST and skin risk (Romeo score: 17). Pt reports unable to eat or drink anything except juice since previous discharge. Pt states he can gum almost all foods and does not want mech soft in the future. He knows he has lost weight but was unsure how much. Pt open to Ensure Clears. Burn Absent Trauma Absent GI Symptoms Other Current % PO Negligible Minimum of two criteria Yes Energy Intake (severe) < or equal to 50% Estimated Energy Requirement > or equal to 5 days Interpretation of Weight Loss (severe) >2% in 1 week #1 Nutrition Diagnosis Malnutrition Etiology infected pancreatic pseudocyst As Evidenced by Signs and Symptoms <50% of EER in 5 days, >2% wt loss in one week Is patient on ventilator? No Is Patient Ambulatory and/or Out of Bed No REE-(Perley-St Jeor-confined to bed) [phone] Calculation Used for Recommendations [facility] Additional Notes Protein: (1.2-1.5g/kg) 88-111g Fluid: 1 ml/kcal or per MD Nutrition Intervention Change Diet Order: Advance as able Add Supplement/Snack (indicate name/kcal Ensure Clear TID /protein ) Provides kCal: 720 Provides Protein (gm) 24 Goal #1 Meet needs as best as possbile on clera liquid diet Anticipated Discharge Needs: Low fat, no alcohol Follow-Up By: 12/23/20 Additional Comments FU for intakes and ONS tolerance
[2020-12-22] MEDS: HYDROmorphone 1 MG/1 ML INJ IV PRN (20:33)
[2020-12-23] MEDS: HYDROmorphone 1 MG/1 ML INJ IV PRN ×3 (02:58→22:37)
[2020-12-23] MEDS: MEROPENEM 2,000 MG in SODIUM CHLORIDE 0.9% 100 ML IV SCH ×3 (05:09→22:36)
[2020-12-23] MEDS: HEPARIN 5,000 UNIT/1 ML VIAL SUB-Q SCH ×2 (09:37→22:37)
[2020-12-23] MEDS: NICOTINE 14 MG/24 HR PATCH TD SCH (09:37)
[2020-12-23] MEDS: CYANOCOBALAMIN (VIT B-12) 100 MCG TAB PO SCH (09:37)
[2020-12-23] MEDS: PANTOPRAZOLE 40 MG TAB PO SCH (09:37)
[2020-12-23] MEDS: METOPROLOL TARTRATE 25 MG TAB PO SCH ×2 (09:37→22:36)
[2020-12-23] MEDS: FOLIC ACID 1 MG TAB PO SCH (09:37)
--- NOTE | 2020-12-23 10:51 | Progress Note ---
Assessment and Plan Assessment and plan: 60-year-old -[place] male with history of hypertension, alcoholism, hyperlipidemia, recurrent pancreatitis who was previously admitted on 11/19/2020 with complaints of acute episode of abdominal pain radiating to the left side to the back x3-4 days and alcohol withdrawal symptoms. He was found to have acute pancreatitis secondary to alcohol abuse. His course was complicated by JOHN, hypernatremia, UTI, and sepsis secondary to pancreatic duct leak. On 12/05 he underwent drainage catheter placement in left upper quadrant. On 12/12 MRCP was done and showed pancreatic duct irregularities. He was seen and evaluated by urology, general surgery, and ID. On 12/16 patient was transferred to [facility] to be seen by interventional GI (Dr. Alfie Villalobos) for possible ERCP. Dr. Alfie Villalobos evaluate patient and decided there is no role for ERCP at this time. Initial management should be geared towards resolution of fluid collection and percutaneous drain management per IR, with recommendations to flush drains with 20-30 cc of H2O twice daily, and follow-up with GI as outpatient in 4 to 6 weeks. Patient was transferred back to [facility] for further evaluation and treatment. Midline was placed at [facility] with anticipation of long-term (4 to 6 weeks) IV ABX. At the time of my examination patient is resting comfortably in bed. Endorses mild generalized abdominal discomfort worse in left upper quadrant area. He has no complaints at this time. Denies fever, chills, nausea, vomiting, headache, dysuria, hematuria, or constipation 12/20: Continue supportive care, Complete abx as recommended by JANA CHAVEZ following and arranging for SNF placement. 12/21: We will give a bolus of 500 cc fluids. Monitor nausea. Antiemetics if needed., continue PT/OT, Continue working on home antibiotics. 12/22: Patient clinically stable FLORA drain continues to drain Case management continues to work on placement. 12/23: Patient seen and examined, continues on abx, Case management consulted for meropenem 2g q8h until 01/11/2021. Still awaiting placement as family unable to take care of him. Continue daily PT OT Bacterial sepsis secondary to pancreatic leak -large multifocal fluid and gas collections in the abdomen. -12/02 IR drainage with about 500 cc of pinkish material drained -12/05 CT-guided placement of 8 [place] drainage catheter in left upper quadrant fluid -12/13/2020 LUQ drainage cultures: MDR E.coli resistant to zosyn, amp, FQ, cefazolin -12/15/2020 started on meropenem due to MDR E. 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 -Will likely need follow-up CT abdomen pelvis in 4 to 6 weeks to determine optimal timing of removal of drains -Recommends outpatient GI follow-up [facility] in [place], [place] ([phone]) -Readmitted back to [facility] on 12/19 HTN -Monitor BP -Resume metoprolol 12.5 twice daily EtOH Abuse -Last drink unknown -Initiate CIWA protocol -Continue p.o. thiamine and Folic Acid -On D5 06/15 NS -Counseled for cessation abuse Tobacco abuse -Current every day smoker -Counseled for cessation -Nicotine patch when necessary DVT and GI PPX -On Protonix and Heparin History Interval history: Patient seen and examined, in bed, no new complaints. Hospitalist Physical - Physical exam Narrative exam: Physical exam General appearance: Present: No acute distress, alert and oriented 3, older adult male, nurse at bedside - EENT Eyes: Present: PERRL, EOM intact ENT: hearing intact, normal dentition - Neck Neck: Present: supple, normal ROM - Respiratory Respiratory effort: Non-labored Respiratory: Clear throughout - Cardiovascular Heart rate: 90 (bpm) Rhythm: Sinus Heart Sounds: Present: S1 & S2. Absent: rub, click - Extremities Extremities: no ischemia, pulses intact,, left upper extremity midline - Peripheral Assessment Peripheral Pulses: within normal limits - Abdominal General gastrointestinal: soft, left upper quadrant abdominal catheter noted with discolored fluid,non tender abdomen, FLORA drain well, normal bowel sounds - Integumentary Integumentary: Present: warm, dry - Musculoskeletal Musculoskeletal: Able to move all extremities -Neurological Neurological: CN II-XII intact - Psychiatric Psychiatric: Appropriate for situation ,cooperative - Constitutional Vitals: Temp Pulse Resp BP Pulse Ox 98.0 F 77 16 110/72 98 12/23/20 04:40 12/23/20 09:37 12/23/20 04:40 12/23/20 04:40 12/23/20 04:40 Results - Labs CBC & Chem 7: 12/19/20 01:34 12/20/20 06:49 Labs: Laboratory Last Values WBC 7.1 K/mm3 (4.5-11.0) 12/19/20 01:34 RBC 3.18 M/mm3 (3.65-5.03) L 12/19/20 01:34 Hgb 8.4 gm/dl (11.8-15.2) L 12/19/20 01:34 Hct 25.0 % (35.5-45.6) L 12/19/20 01:34 MCV 79 fl (84-94) L 12/19/20 01:34 MCH 26 pg (28-32) L 12/19/20 01:34 MCHC 34 % (32-34) 12/19/20 01:34 RDW 18.9 % (13.2-15.2) H 12/19/20 01:34 Plt Count 281 K/mm3 (140-440) 12/19/20 01:34 Lymph % (Auto) 16.9 % (13.4-35.0) 12/19/20 01:34 [place] % (Auto) 12.3 % (0.0-7.3) H 12/19/20 01:34 Eos % (Auto) 0.8 % (0.0-4.3) 12/19/20 01:34 Baso % (Auto) 1.3 % (0.0-1.8) 12/19/20 01:34 Lymph # (Auto) 1.2 K/mm3 (1.2-5.4) 12/19/20 01:34 [place] # (Auto) 0.9 K/mm3 (0.0-0.8) H 12/19/20 01:34 Eos # (Auto) 0.1 K/mm3 (0.0-0.4) 12/19/20 01:34 Baso # (Auto) 0.1 K/mm3 (0.0-0.1) 12/19/20 01:34 Seg Neutrophils % 68.7 % (40.0-70.0) 12/19/20 01:34 Seg Neutrophils # 4.8 K/mm3 (1.8-7.7) 12/19/20 01:34 Sodium 135 mmol/L (137-145) L 12/20/20 06:49 Potassium 3.8 mmol/L (3.6-5.0) 12/20/20 06:49 Chloride 101.6 mmol/L (98-107) 12/20/20 06:49 Carbon Dioxide 23 mmol/L (22-30) 12/20/20 06:49 Anion Gap 14 mmol/L 12/20/20 06:49 BUN 3 mg/dL (9-20) L 12/20/20 06:49 Creatinine 0.3 mg/dL (0.8-1.3) L 12/20/20 06:49 Estimated GFR > 60 ml/min 12/20/20 06:49 BUN/Creatinine Ratio 10 % 12/20/20 06:49 Glucose 85 mg/dL (75-100) 12/20/20 06:49 POC Glucose 89 mg/dL (70-105) 12/22/20 16:34 Calcium 8.2 mg/dL (8.4-10.2) L 12/20/20 06:49 Phosphorus 1.50 mg/dL (2.5-4.5) L 12/19/20 01:34 Magnesium 1.30 mg/dL (1.7-2.3) L 12/19/20 01:34 Total Bilirubin 0.30 mg/dL (0.1-1.2) 12/20/20 06:49 AST 11 units/L (5-40) 12/20/20 06:49 ALT < 5 units/L (7-56) L 12/20/20 06:49 Alkaline Phosphatase 124 units/L (35-129) 12/20/20 06:49 Ammonia 41.0 umol/L (25-60) 12/19/20 01:34 Total Protein 5.3 g/dL (6.3-8.2) L 12/20/20 06:49 Albumin 2.4 g/dL (3.9-5) L 12/20/20 06:49 Albumin/Globulin Ratio 0.8 % 12/20/20 06:49 Amylase 42 units/L (27-131) 12/19/20 01:34 Procalcitonin < 0.05 ng/mL (<0.15) 12/19/20 01:34 Coronavirus (PCR) Negative (Negative) 12/21/20 Unknown Microbiology: Microbiology 12/19/20 03:01 Peripheral/Venous Blood Culture - Preliminary NO GROWTH AFTER 72 HOURS 12/19/20 01:34 Peripheral/Venous Blood Culture - Preliminary NO GROWTH AFTER 72 HOURS Viramontes/IV: Voiding Method Urinal Active Medications - Current Medications Current Medications: Generic Name Dose Route Start Last Admin Trade Name Freq PRN Reason Stop Dose Admin Acetaminophen 650 mg 12/19/20 00:37 Acetaminophen 325 Mg Tab PO Q4H PRN Pain MILD(1-3)/Fever >100.5/[place] Albuterol 2.5 mg 12/19/20 00:37 Albuterol 2.5 Mg/3 Ml Nebu IH Q3HRT PRN Shortness Of Breath Cyanocobalamin 100 mcg 12/19/20 10:00 12/23/20 09:37 Cyanocobalamin (Vit B-12) 100 Mcg Tab PO 100 mcg QDAY JANNETH Administration Folic Acid 1 mg 12/19/20 10:00 12/23/20 09:37 Folic Acid 1 Mg Tab PO 1 mg QDAY JANNETH Administration Heparin Sodium (Porcine) 5,000 unit 12/19/20 10:00 12/23/20 09:37 Heparin 5,000 Unit/1 Ml Vial SUB-Q 5,000 unit Q12HR JANNETH Administration Hydromorphone HCl 0.5 mg 12/19/20 00:41 12/23/20 02:58 Hydromorphone 1 Mg/1 Ml Inj IV 0.5 mg Q3H PRN Administration Pain , Severe (7-10) Meropenem 2,000 mg/ Sodium 100 mls @ 100 mls/hr 12/19/20 06:00 12/23/20 05:09 Chloride IV 01/11/21 22:59 100 mls/hr Q8HR JANNETH Administration Lorazepam 2 mg 12/19/20 00:46 Lorazepam 2 Mg/Ml Vial IV Q1H PRN CIWA-Ar 8-15 Metoprolol Tartrate 12.5 mg 12/19/20 10:00 12/23/20 09:37 Metoprolol Tartrate 25 Mg Tab PO 12.5 mg BID JANNETH Administration Morphine Sulfate 2 mg 12/19/20 00:41 12/22/20 09:12 Morphine 2 Mg/1 Ml Inj IV 2 mg Q4H PRN Administration Pain, Moderate (4-6) Naloxone HCl 0.1 mg 12/19/20 00:41 Naloxone 0.4 Mg/1 Ml Inj IV Q2MIN PRN Res Rate </= 8 or 02 SAT < 92% Nicotine 14 mg 12/19/20 10:00 12/23/20 09:37 Nicotine 14 Mg/24 Hr Patch TD 14 mg QDAY JANNETH Administration Ondansetron HCl 4 mg 12/19/20 00:37 Ondansetron 4 Mg/2 Ml Inj IV Q6H PRN Nausea And Vomiting Pantoprazole Sodium 40 mg 12/19/20 10:00 12/23/20 09:37 Pantoprazole 40 Mg Tab PO 40 mg DAILY JANNETH Administration Sodium Chloride 10 ml 12/19/20 10:00 12/23/20 09:46 Sodium Chloride 0.9% 10 Ml Flush Syringe IV 10 ml BID JANNETH Administration Sodium Chloride 10 ml 12/19/20 00:37 Sodium Chloride 0.9% 10 Ml Flush Syringe IV PRN PRN LINE FLUSH Sterile Water 1,000 ml 12/19/20 04:55 Water For Irrig Sterile 1,000 Ml Bottle IR DIRECT [facility] Nutrition/Malnutrition Assess - Dietary Evaluation Nutrition/Malnutrition Findings: Nutrition Notes Start: 12/19/20 11:12 Freq: Status: Active Protocol: Document 12/19/20 11:12 (Rec: 12/19/20 11:21 [id number]) Nutrition Notes Need for Assessment generated from: MD Order,maternal fetal physician,MST Initial or Follow up Assessment Current Diagnosis Hypertension,Hyperlipidemia Other Pertinent Diagnosis hx etoh abuse, infected pancreatic pseudocyst Current Diet Full Liquid, Cardiac, consistent CHO Labs/Tests Na 132 BUN 4 Cr 0.3 Phos 1.5 Mg 1.3 Pertinent Medications B12 Folic acid D5 .45 NS at 75 ml/hr Height 5 ft 10 in Weight 73.7 kg Usual Body Weight 78.7 kg [place] Body Weight (kg) 75.45 BMI 23.3 Intake Prior to Admission Poor Weight change and time frame 6% wt loss in 1 week, per chart Weight Status Appropriate Subjective/Other Information MD consult for malnutrition. RN screen for chewing difficulty, MST and skin risk (Romeo score: 17). Pt reports unable to eat or drink anything except juice since previous discharge. Pt states he can gum almost all foods and does not want mech soft in the future. He knows he has lost weight but was unsure how much. Pt open to Ensure Clears. Burn Absent Trauma Absent GI Symptoms Other Current % PO Negligible Minimum of two criteria Yes Energy Intake (severe) < or equal to 50% Estimated Energy Requirement > or equal to 5 days Interpretation of Weight Loss (severe) >2% in 1 week #1 Nutrition Diagnosis Malnutrition Etiology infected pancreatic pseudocyst As Evidenced by Signs and Symptoms <50% of EER in 5 days, >2% wt loss in one week Is patient on ventilator? No Is Patient Ambulatory and/or Out of Bed No REE-([facility]-confined to bed) 4018.772 Calculation Used for Recommendations [facility] Additional Notes Protein: (1.2-1.5g/kg) 88-111g Fluid: 1 ml/kcal or per MD Nutrition Intervention Change Diet Order: Advance as able Add Supplement/Snack (indicate name/kcal Ensure Clear TID /protein ) Provides kCal: 720 Provides Protein (gm) 24 Goal #1 Meet needs as best as possbile on clera liquid diet Anticipated Discharge Needs: Low fat, no alcohol Follow-Up By: 12/23/20 Additional Comments FU for intakes and ONS tolerance
[2020-12-24] MEDS: HYDROmorphone 1 MG/1 ML INJ IV PRN (05:14)
[2020-12-24] MEDS: MEROPENEM 2,000 MG in SODIUM CHLORIDE 0.9% 100 ML IV SCH ×3 (05:14→21:25)
--- NOTE | 2020-12-24 07:04 | Progress Note ---
Assessment and Plan Assessment and plan: 60-year-old -[place]er male with history of hypertension, alcoholism, hyperlipidemia, recurrent pancreatitis who was previously admitted on 11/19/2020 with complaints of acute episode of abdominal pain radiating to the left side to the back x3-4 days and alcohol withdrawal symptoms. He was found to have acute pancreatitis secondary to alcohol abuse. His course was complicated by JOHN, hypernatremia, UTI, and sepsis secondary to pancreatic duct leak. On 12/05 he underwent drainage catheter placement in left upper quadrant. On 12/12 MRCP was done and showed pancreatic duct irregularities. He was seen and evaluated by urology, general surgery, and ID. On 12/16 patient was transferred to [facility] to be seen by interventional GI (Dr. Alfie Villalobos) for possible ERCP. Dr. Alfie Villalobos evaluate patient and decided there is no role for ERCP at this time. Initial management should be geared towards resolution of fluid collection and percutaneous drain management per IR, with recommendations to flush drains with 20-30 cc of H2O twice daily, and follow-up with GI as outpatient in 4 to 6 weeks. Patient was transferred back to [facility] for further evaluation and treatment. Midline was placed at [facility] with anticipation of long-term (4 to 6 weeks) IV ABX. At the time of my examination patient is resting comfortably in bed. Endorses mild generalized abdominal discomfort worse in left upper quadrant area. He has no complaints at this time. Denies fever, chills, nausea, vomiting, headache, dysuria, hematuria, or constipation 12/20: Continue supportive care, Complete abx as recommended by JANA CHAVEZ following and arranging for SNF placement. 12/21: We will give a bolus of 500 cc fluids. Monitor nausea. Antiemetics if needed., continue PT/OT, Continue working on home antibiotics. 12/22: Patient clinically stable FLORA drain continues to drain Case management continues to work on placement. 12/23: Patient seen and examined, continues on abx, Case management consulted for meropenem 2g q8h until 01/11/2021. Still awaiting placement as family unable to take care of him. Continue daily PT OT 12/24/2020; patient is pending placement. Will follow with case management. Continue with IV antibiotics. Need outpatient IV antibiotic arrangement. Bacterial sepsis secondary to pancreatic leak -large multifocal fluid and gas collections in the abdomen. -12/02 IR drainage with about 500 cc of pinkish material drained -12/05 CT-guided placement of 8 [place] drainage catheter in left upper quadrant fluid -12/13/2020 LUQ drainage cultures: MDR E.coli resistant to zosyn, amp, FQ, cefazolin -12/15/2020 started on meropenem due to MDR E. 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 -Will likely need follow-up CT abdomen pelvis in 4 to 6 weeks to determine optimal timing of removal of drains -Recommends outpatient GI follow-up [facility] in [place], [place] ([phone]) -Readmitted back to [facility] on 12/19 HTN -Monitor BP -Resume metoprolol 12.5 twice daily EtOH Abuse -Last drink unknown -Initiate CIWA protocol -Continue p.o. thiamine and Folic Acid -On D5 / NS -Counseled for cessation abuse Tobacco abuse -Current every day smoker -Counseled for cessation -Nicotine patch when necessary DVT and GI PPX -On Protonix and Heparin History Interval history: Patient was seen and evaluated this morning Patient's vital signs were stable Patient said he is feeling okay Hospitalist Physical - Physical exam Narrative exam: Not in cardiopulmonary distress. The patient appeared well nourished and normally developed. Vital signs as documented. Head exam is unremarkable. No scleral icterus . Neck is without jugular venous distension, thyromegaly, or carotid bruits. Lungs are clear to auscultation. Cardiac exam reveals regular rate and Rhythm. Abdominal exam reveals normal bowel sounds, nontender, no organomegaly. FLORA drain in place. I did not see any appreciable fluid in the draining bag. Extremities are nonedematous and both femoral and pedal pulses are normal. [employer]: Alert and oriented 3. No focal weakness. - Constitutional Vitals: Temp Pulse Resp BP Pulse Ox 98.6 F 77 16 104/68 99 07/13/21 04:24 12/24/20 04:24 12/24/20 04:24 12/24/20 04:24 12/24/20 04:24 Results - Labs CBC & Chem 7: 12/19/20 01:34 12/20/20 06:49 Labs: Laboratory Last Values WBC 7.1 K/mm3 (4.5-11.0) 12/19/20 01:34 RBC 3.18 M/mm3 (3.65-5.03) L 12/19/20 01:34 Hgb 8.4 gm/dl (11.8-15.2) L 12/19/20 01:34 Hct 25.0 % (35.5-45.6) L 12/19/20 01:34 MCV 79 fl (84-94) L 12/19/20 01:34 MCH 26 pg (28-32) L 12/19/20 01:34 MCHC 34 % (32-34) 12/19/20 01:34 RDW 18.9 % (13.2-15.2) H 12/19/20 01:34 Plt Count 281 K/mm3 (140-440) 12/19/20 01:34 Lymph % (Auto) 16.9 % (13.4-35.0) 12/19/20 01:34 [place] % (Auto) 12.3 % (0.0-7.3) H 12/19/20 01:34 Eos % (Auto) 0.8 % (0.0-4.3) 12/19/20 01:34 Baso % (Auto) 1.3 % (0.0-1.8) 12/19/20 01:34 Lymph # (Auto) 1.2 K/mm3 (1.2-5.4) 12/19/20 01:34 [place] # (Auto) 0.9 K/mm3 (0.0-0.8) H 12/19/20 01:34 Eos # (Auto) 0.1 K/mm3 (0.0-0.4) 12/19/20 01:34 Baso # (Auto) 0.1 K/mm3 (0.0-0.1) 12/19/20 01:34 Seg Neutrophils % 68.7 % (40.0-70.0) 12/19/20 01:34 Seg Neutrophils # 4.8 K/mm3 (1.8-7.7) 12/19/20 01:34 Sodium 135 mmol/L (137-145) L 12/20/20 06:49 Potassium 3.8 mmol/L (3.6-5.0) 12/20/20 06:49 Chloride 101.6 mmol/L (98-107) 12/20/20 06:49 Carbon Dioxide 23 mmol/L (22-30) 12/20/20 06:49 Anion Gap 14 mmol/L 12/20/20 06:49 BUN 3 mg/dL (9-20) L 12/20/20 06:49 Creatinine 0.3 mg/dL (0.8-1.3) L 12/20/20 06:49 Estimated GFR > 60 ml/min 12/20/20 06:49 BUN/Creatinine Ratio 10 % 12/20/20 06:49 Glucose 85 mg/dL (75-100) 12/20/20 06:49 POC Glucose 103 mg/dL (70-105) 12/23/20 16:05 Calcium 8.2 mg/dL (8.4-10.2) L 12/20/20 06:49 Phosphorus 1.50 mg/dL (2.5-4.5) L 12/19/20 01:34 Magnesium 1.30 mg/dL (1.7-2.3) L 12/19/20 01:34 Total Bilirubin 0.30 mg/dL (0.1-1.2) 12/20/20 06:49 AST 11 units/L (5-40) 12/20/20 06:49 ALT < 5 units/L (7-56) L 12/20/20 06:49 Alkaline Phosphatase 124 units/L (35-129) 12/20/20 06:49 Ammonia 41.0 umol/L (25-60) 12/19/20 01:34 Total Protein 5.3 g/dL (6.3-8.2) L 12/20/20 06:49 Albumin 2.4 g/dL (3.9-5) L 12/20/20 06:49 Albumin/Globulin Ratio 0.8 % 12/20/20 06:49 Amylase 42 units/L (27-131) 12/19/20 01:34 Procalcitonin < 0.05 ng/mL (<0.15) 12/19/20 01:34 Coronavirus (PCR) Negative (Negative) 12/21/20 Unknown Microbiology: Microbiology 12/19/20 03:01 Peripheral/Venous Blood Culture - Preliminary NO GROWTH AFTER 4 DAYS 12/19/20 01:34 Peripheral/Venous Blood Culture - Preliminary NO GROWTH AFTER 4 DAYS Viramontes/IV: Voiding Method Urinal Active Medications - Current Medications Current Medications: Generic Name Dose Route Start Last Admin Trade Name Freq PRN Reason Stop Dose Admin Acetaminophen 650 mg 12/19/20 00:37 Acetaminophen 325 Mg Tab PO Q4H PRN Pain MILD(1-3)/Fever >100.5/[place] Albuterol 2.5 mg 12/19/20 00:37 Albuterol 2.5 Mg/3 Ml Nebu IH Q3HRT PRN Shortness Of Breath Cyanocobalamin 100 mcg 12/19/20 10:00 12/23/20 09:37 Cyanocobalamin (Vit B-12) 100 Mcg Tab PO 100 mcg QDAY JANNETH Administration Folic Acid 1 mg 12/19/20 10:00 12/23/20 09:37 Folic Acid 1 Mg Tab PO 1 mg QDAY JANNETH Administration Heparin Sodium (Porcine) 5,000 unit 12/19/20 10:00 12/23/20 22:37 Heparin 5,000 Unit/1 Ml Vial SUB-Q 5,000 unit Q12HR JANNETH Administration Hydromorphone HCl 0.5 mg 12/19/20 00:41 12/24/20 05:14 Hydromorphone 1 Mg/1 Ml Inj IV 0.5 mg Q3H PRN Administration Pain , Severe (7-10) Meropenem 2,000 mg/ Sodium 100 mls @ 100 mls/hr 12/19/20 06:00 12/24/20 05:14 Chloride IV 01/11/21 22:59 100 mls/hr Q8HR JANNETH Administration Lorazepam 2 mg 12/19/20 00:46 Lorazepam 2 Mg/Ml Vial IV Q1H PRN CIWA-Ar 8-15 Metoprolol Tartrate 12.5 mg 12/19/20 10:00 12/23/20 22:36 Metoprolol Tartrate 25 Mg Tab PO 12.5 mg BID JANNETH Administration Morphine Sulfate 2 mg 12/19/20 00:41 12/22/20 09:12 Morphine 2 Mg/1 Ml Inj IV 2 mg Q4H PRN Administration Pain, Moderate (4-6) Naloxone HCl 0.1 mg 12/19/20 00:41 Naloxone 0.4 Mg/1 Ml Inj IV Q2MIN PRN Res Rate </= 8 or 02 SAT < 92% Nicotine 14 mg 12/19/20 10:00 12/23/20 09:37 Nicotine 14 Mg/24 Hr Patch TD 14 mg QDAY JANNETH Administration Ondansetron HCl 4 mg 12/19/20 00:37 Ondansetron 4 Mg/2 Ml Inj IV Q6H PRN Nausea And Vomiting Pantoprazole Sodium 40 mg 12/19/20 10:00 12/23/20 09:37 Pantoprazole 40 Mg Tab PO 40 mg DAILY JANNETH Administration Sodium Chloride 10 ml 12/19/20 10:00 12/23/20 22:39 Sodium Chloride 0.9% 10 Ml Flush Syringe IV 10 ml BID JANNETH Administration Sodium Chloride 10 ml 12/19/20 00:37 Sodium Chloride 0.9% 10 Ml Flush Syringe IV PRN PRN LINE FLUSH Sterile Water 1,000 ml 12/19/20 04:55 Water For Irrig Sterile 1,000 Ml Bottle IR DIRECT JANNETH Nutrition/Malnutrition Assess - Dietary Evaluation Nutrition/Malnutrition Findings: Nutrition Notes Start: 12/19/20 11:12 Freq: Status: Active Protocol: Document 12/23/20 13:29 (Rec: 12/23/20 13:46 [id number]) Nutrition Notes Initial or Follow up Reassessment Current Diagnosis Hypertension,Hyperlipidemia Other Pertinent Diagnosis hx etoh abuse, infected pancreatic pseudocyst Current Diet Cardiac, Consistent CHO Labs/Tests Reviewed Pertinent Medications Reviewed Height 5 ft 10 in Weight 73.3 kg [place] Body Weight (kg) 75.45 BMI 23.1 Weight Status Appropriate Subjective/Other Information FU for intakes. Pt reports eating 10% of meals and 100% of 3 Ensure Clear. [facility]. Percent of energy/protein needs met: 39%/27% Burn Absent Trauma Absent GI Symptoms Other Current % PO Negligible Minimum of two criteria Yes Energy Intake (severe) < or equal to 50% Estimated Energy Requirement > or equal to 5 days Interpretation of Weight Loss (severe) >2% in 1 week #1 Nutrition Diagnosis Malnutrition Diagnosis Progress(for reassessment Continues documentation) Is patient on ventilator? No Is Patient Ambulatory and/or Out of Bed No REE-([facility]-confined to bed) [phone] Calculation Used for Recommendations [facility] Additional Notes Protein: (1.2-1.5g/kg) 88-111g Fluid: 1 ml/kcal or per MD Nutrition Intervention Change Diet Order: Continue with [facility] soft Add Supplement/Snack (indicate name/kcal Ensure Enlive TID /protein ) Provides kCal: 1,050 Provides Protein (gm) 60 Goal #1 Meet at least 75% of energy and protein needs via PO and ONS Anticipated Discharge Needs: Low fat, no alcohol Follow-Up By: 12/25/20 Additional Comments FU for intakes and ONS tolerance
[2020-12-24] MEDS: FOLIC ACID 1 MG TAB PO SCH (10:55)
[2020-12-24] MEDS: METOPROLOL TARTRATE 25 MG TAB PO SCH ×2 (10:55→21:11)
[2020-12-24] MEDS: PANTOPRAZOLE 40 MG TAB PO SCH (10:56)
[2020-12-24] MEDS: HEPARIN 5,000 UNIT/1 ML VIAL SUB-Q SCH ×2 (10:56→21:12)
[2020-12-24] MEDS: CYANOCOBALAMIN (VIT B-12) 100 MCG TAB PO SCH (10:56)
[2020-12-24] MEDS: NICOTINE 14 MG/24 HR PATCH TD SCH (10:56)
[2020-12-24] MEDS: MORPHINE 2 MG/1 ML INJ IV PRN ×2 (13:57→21:10)
[2020-12-25] MEDS: MEROPENEM 2,000 MG in SODIUM CHLORIDE 0.9% 100 ML IV SCH ×3 (05:48→21:41)
[2020-12-25] MEDS: MORPHINE 2 MG/1 ML INJ IV PRN ×3 (05:51→20:44)
[2020-12-25] MEDS: PANTOPRAZOLE 40 MG TAB PO SCH (09:34)
[2020-12-25] MEDS: METOPROLOL TARTRATE 25 MG TAB PO SCH ×2 (09:34→21:59)
[2020-12-25] MEDS: NICOTINE 14 MG/24 HR PATCH TD SCH (09:34)
[2020-12-25] MEDS: FOLIC ACID 1 MG TAB PO SCH (09:34)
[2020-12-25] MEDS: CYANOCOBALAMIN (VIT B-12) 100 MCG TAB PO SCH (09:34)
[2020-12-25] MEDS: HEPARIN 5,000 UNIT/1 ML VIAL SUB-Q SCH ×2 (09:35→21:43)
--- NOTE | 2020-12-25 12:59 | Progress Note ---
Assessment and Plan Assessment and plan: 60-year-old -Serbian male with history of hypertension, alcoholism, hyperlipidemia, recurrent pancreatitis who was previously admitted on 11/19/2020 with complaints of acute episode of abdominal pain radiating to the left side to the back x3-4 days and alcohol withdrawal symptoms. He was found to have acute pancreatitis secondary to alcohol abuse. His course was complicated by JOHN, hypernatremia, UTI, and sepsis secondary to pancreatic duct leak. On 12/05 he underwent drainage catheter placement in left upper quadrant. On 12/12 MRCP was done and showed pancreatic duct irregularities. He was seen and evaluated by urology, general surgery, and ID. On 12/16 patient was transferred to [facility] to be seen by interventional GI (Dr. Alfie Villalobos) for possible ERCP. Dr. Alfie Villalobos evaluate patient and decided there is no role for ERCP at this time. Initial management should be geared towards resolution of fluid collection and percutaneous drain management per IR, with recommendations to flush drains with 20-30 cc of H2O twice daily, and follow-up with GI as outpatient in 4 to 6 weeks. Patient was transferred back to [facility] for further evaluation and treatment. Midline was placed at [facility] with anticipation of long-term (4 to 6 weeks) IV ABX. 12/20: Continue supportive care, Complete abx as recommended by JANA CHAVEZ following and arranging for SNF placement. 12/21: We will give a bolus of 500 cc fluids. Monitor nausea. Antiemetics if needed., continue PT/OT, Continue working on home antibiotics. 12/22: Patient clinically stable FLORA drain continues to drain Case management continues to work on placement. 12/23: Patient seen and examined, continues on abx, Case management consulted for meropenem 2g q8h until 01/11/2021. Still awaiting placement as family unable to take care of him. Continue daily PT OT 12/24/2020; patient is pending placement. Will follow with case management. Continue with IV antibiotics. Need outpatient IV antibiotic arrangement. 12/25/2020: Patient is still awaiting insurance authorization for placement and IV antibiotics. Discussed with case management this morning. # Bacterial sepsis secondary to pancreatic leak -large multifocal fluid and gas collections in the abdomen. -12/02 IR drainage with about 500 cc of pinkish material drained -12/05 CT-guided placement of 8 [place] drainage catheter in left upper quadrant fluid -12/13/2020 LUQ drainage cultures: MDR E.coli resistant to zosyn, amp, FQ, cefazolin -12/15/2020 started on meropenem due to MDR E. 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 -Will likely need follow-up CT abdomen pelvis in 4 to 6 weeks to determine optimal timing of removal of drains -Recommends outpatient GI follow-up [facility] in [place], [place] ([phone]) -Readmitted back to [facility] on 12/19 # HTN -Monitor BP -Resume metoprolol 12.5 twice daily # EtOH Abuse -Last drink unknown -[facility] protocol -Continue p.o. thiamine and Folic Acid -On D5 06/15 NS -Counseled for cessation abuse # Tobacco abuse -Current every day smoker -Counseled for cessation -Nicotine patch when necessary # DVT and GI PPX -On Protonix and Heparin Total Time Spent with Patient (Minutes): 35 History Interval history: Patient seen and examined bedside. No acute complaints this AM. Patient states that he has no pain this morning. Discussed care plan with patient today and awaiting CM placement at this time. Hospitalist Physical - Physical exam Narrative exam: Physical Exam: GENERAL APPEARANCE: Well developed, well nourished, alert and cooperative, and appears to be in no acute distress. HEAD: normocephalic. EYES: PERRL, EOMI. Vision is grossly intact. EARS: hearing intact NOSE: No nasal discharge. CARDIAC: Normal S1 and S2. No S3, S4 or murmurs. Rhythm is regular. There is no peripheral edema, cyanosis or pallor. Extremities are warm and well perfused. LUNGS: Clear to auscultation and percussion without rales, rhonchi, wheezing or diminished breath sounds. ABDOMEN: Positive bowel sounds. left upper quadrant FLORA drain noted with purulent fluid. MUSKULOSKELETAL: Adequately aligned spine. ROM intact spine and extremities. No joint erythema or tenderness. Normal muscular development. Normal gait. BACK: Examination of the spine reveals normal gait and posture, no spinal deformity, symmetry of spinal muscles, without tenderness, decreased range of motion or muscular spasm. EXTREMITIES: No significant deformity or joint abnormality. No edema. Peripheral pulses intact. No varicosities. LOWER EXTREMITY: nonedamatous, both femoral/pedal pulses are normal. NEUROLOGICAL: CN II-XII grossly intact. Strength and sensation symmetric and intact throughout. SKIN: Skin normal color, texture and turgor with no lesions or eruptions. PSYCHIATRIC: The mental examination revealed the patient was oriented to person, place, and time. - Constitutional Vitals: Temp Pulse Resp BP Pulse Ox 98.1 F 74 20 109/75 99 12/25/20 03:56 12/25/20 10:47 12/25/20 10:47 12/25/20 03:56 12/25/20 10:47 Results - Labs CBC & Chem 7: 12/19/20 01:34 12/20/20 06:49 Labs: Laboratory Last Values WBC 7.1 K/mm3 (4.5-11.0) 12/19/20 01:34 RBC 3.18 M/mm3 (3.65-5.03) L 12/19/20 01:34 Hgb 8.4 gm/dl (11.8-15.2) L 12/19/20 01:34 Hct 25.0 % (35.5-45.6) L 12/19/20 01:34 MCV 79 fl (84-94) L 12/19/20 01:34 MCH 26 pg (28-32) L 12/19/20 01:34 MCHC 34 % (32-34) 12/19/20 01:34 RDW 18.9 % (13.2-15.2) H 12/19/20 01:34 Plt Count 281 K/mm3 (140-440) 12/19/20 01:34 Lymph % (Auto) 16.9 % (13.4-35.0) 12/19/20 01:34 [place] % (Auto) 12.3 % (0.0-7.3) H 12/19/20 01:34 Eos % (Auto) 0.8 % (0.0-4.3) 12/19/20 01:34 Baso % (Auto) 1.3 % (0.0-1.8) 12/19/20 01:34 Lymph # (Auto) 1.2 K/mm3 (1.2-5.4) 12/19/20 01:34 [place] # (Auto) 0.9 K/mm3 (0.0-0.8) H 12/19/20 01:34 Eos # (Auto) 0.1 K/mm3 (0.0-0.4) 12/19/20 01:34 Baso # (Auto) 0.1 K/mm3 (0.0-0.1) 12/19/20 01:34 Seg Neutrophils % 68.7 % (40.0-70.0) 12/19/20 01:34 Seg Neutrophils # 4.8 K/mm3 (1.8-7.7) 12/19/20 01:34 Sodium 135 mmol/L (137-145) L 12/20/20 06:49 Potassium 3.8 mmol/L (3.6-5.0) 12/20/20 06:49 Chloride 101.6 mmol/L (98-107) 12/20/20 06:49 Carbon Dioxide 23 mmol/L (22-30) 12/20/20 06:49 Anion Gap 14 mmol/L 12/20/20 06:49 BUN 3 mg/dL (9-20) L 12/20/20 06:49 Creatinine 0.3 mg/dL (0.8-1.3) L 12/20/20 06:49 Estimated GFR > 60 ml/min 12/20/20 06:49 BUN/Creatinine Ratio 10 % 12/20/20 06:49 Glucose 85 mg/dL (75-100) 12/20/20 06:49 POC Glucose 104 mg/dL (70-105) 12/25/20 06:48 Calcium 8.2 mg/dL (8.4-10.2) L 12/20/20 06:49 Phosphorus 1.50 mg/dL (2.5-4.5) L 12/19/20 01:34 Magnesium 1.30 mg/dL (1.7-2.3) L 12/19/20 01:34 Total Bilirubin 0.30 mg/dL (0.1-1.2) 12/20/20 06:49 AST 11 units/L (5-40) 12/20/20 06:49 ALT < 5 units/L (7-56) L 12/20/20 06:49 Alkaline Phosphatase 124 units/L (35-129) 12/20/20 06:49 Ammonia 41.0 umol/L (25-60) 12/19/20 01:34 Total Protein 5.3 g/dL (6.3-8.2) L 12/20/20 06:49 Albumin 2.4 g/dL (3.9-5) L 12/20/20 06:49 Albumin/Globulin Ratio 0.8 % 12/20/20 06:49 Amylase 42 units/L (27-131) 12/19/20 01:34 Procalcitonin < 0.05 ng/mL (<0.15) 12/19/20 01:34 Coronavirus (PCR) Negative (Negative) 12/21/20 Unknown Microbiology: Microbiology 12/19/20 03:01 Peripheral/Venous Blood Culture - Final NO GROWTH AFTER 5 DAYS 12/19/20 01:34 Peripheral/Venous Blood Culture - Final NO GROWTH AFTER 5 DAYS Viramontes/IV: Voiding Method Urinal Active Medications - Current Medications Current Medications: Generic Name Dose Route Start Last Admin Trade Name Freq PRN Reason Stop Dose Admin Acetaminophen 650 mg 12/19/20 00:37 Acetaminophen 325 Mg Tab PO Q4H PRN Pain MILD(1-3)/Fever >100.5/[place] Albuterol 2.5 mg 12/19/20 00:37 Albuterol 2.5 Mg/3 Ml Nebu IH Q3HRT PRN Shortness Of Breath Cyanocobalamin 100 mcg 12/19/20 10:00 12/25/20 09:34 Cyanocobalamin (Vit B-12) 100 Mcg Tab PO 100 mcg QDAY JANNETH Administration Folic Acid 1 mg 12/19/20 10:00 12/25/20 09:34 Folic Acid 1 Mg Tab PO 1 mg QDAY JANNETH Administration Heparin Sodium (Porcine) 5,000 unit 12/19/20 10:00 12/25/20 09:35 Heparin 5,000 Unit/1 Ml Vial SUB-Q 5,000 unit Q12HR JANNETH Administration Hydromorphone HCl 0.5 mg 12/19/20 00:41 12/24/20 05:14 Hydromorphone 1 Mg/1 Ml Inj IV 0.5 mg Q3H PRN Administration Pain , Severe (7-10) Meropenem 2,000 mg/ Sodium 100 mls @ 100 mls/hr 12/19/20 06:00 12/25/20 05:48 Chloride IV 01/11/21 22:59 100 mls/hr Q8HR JANNETH Administration Lorazepam 2 mg 12/19/20 00:46 Lorazepam 2 Mg/Ml Vial IV Q1H PRN CIWA-Ar 8-15 Metoprolol Tartrate 12.5 mg 12/19/20 10:00 12/25/20 09:34 Metoprolol Tartrate 25 Mg Tab PO 12.5 mg BID JANNETH Administration Morphine Sulfate 2 mg 12/19/20 00:41 12/25/20 05:51 Morphine 2 Mg/1 Ml Inj IV 2 mg Q4H PRN Administration Pain, Moderate (4-6) Naloxone HCl 0.1 mg 12/19/20 00:41 Naloxone 0.4 Mg/1 Ml Inj IV Q2MIN PRN Res Rate </= 8 or 02 SAT < 92% Nicotine 14 mg 12/19/20 10:00 12/25/20 09:34 Nicotine 14 Mg/24 Hr Patch TD 14 mg QDAY JANNETH Administration Ondansetron HCl 4 mg 12/19/20 00:37 Ondansetron 4 Mg/2 Ml Inj IV Q6H PRN Nausea And Vomiting Pantoprazole Sodium 40 mg 12/19/20 10:00 12/25/20 09:34 Pantoprazole 40 Mg Tab PO 40 mg DAILY JANNETH Administration Sodium Chloride 10 ml 12/19/20 10:00 12/25/20 09:34 Sodium Chloride 0.9% 10 Ml Flush Syringe IV 10 ml BID JANNETH Administration Sodium Chloride 10 ml 12/19/20 00:37 Sodium Chloride 0.9% 10 Ml Flush Syringe IV PRN PRN LINE FLUSH Sterile Water 1,000 ml 12/19/20 04:55 Water For Irrig Sterile 1,000 Ml Bottle IR DIRECT [facility] Nutrition/Malnutrition Assess - Dietary Evaluation Nutrition/Malnutrition Findings: Nutrition Notes Start: 12/19/20 11:12 Freq: Status: Active Protocol: Document 12/23/20 13:29 STEPHANIE (Rec: 12/23/20 13:46 STEPHANIE [id number]) Nutrition Notes Initial or Follow up Reassessment Current Diagnosis Hypertension,Hyperlipidemia Other Pertinent Diagnosis hx etoh abuse, infected pancreatic pseudocyst Current Diet Cardiac, Consistent CHO Labs/Tests Reviewed Pertinent Medications Reviewed Height 5 ft 10 in Weight 73.3 kg [place] Body Weight (kg) 75.45 BMI 23.1 Weight Status Appropriate Subjective/Other Information FU for intakes. Pt reports eating 10% of meals and 100% of 3 Ensure Clear. He would like regular Ensure and mech soft diet. Percent of energy/protein needs met: 39%/27% Burn Absent Trauma Absent GI Symptoms Other Current % PO Negligible Minimum of two criteria Yes Energy Intake (severe) < or equal to 50% Estimated Energy Requirement > or equal to 5 days Interpretation of Weight Loss (severe) >2% in 1 week #1 Nutrition Diagnosis Malnutrition Diagnosis Progress(for reassessment Continues documentation) Is patient on ventilator? No Is Patient Ambulatory and/or Out of Bed No REE-([place]-confined to bed) 6399.227 Calculation Used for Recommendations [facility] Additional Notes Protein: (1.2-1.5g/kg) 88-111g Fluid: 1 ml/kcal or per MD Nutrition Intervention Change Diet [facility]: [facility] Add Supplement/Snack (indicate name/kcal Ensure Enlive TID /protein ) Provides kCal: 1,050 Provides Protein (gm) 60 Goal #1 Meet at least 75% of energy and protein needs via PO and ONS Anticipated Discharge Needs: Low fat, no alcohol Follow-Up By: 12/25/20 Additional Comments FU for intakes and ONS tolerance
[2020-12-26] MEDS: MORPHINE 2 MG/1 ML INJ IV PRN ×3 (01:43→21:01)
[2020-12-26] MEDS: MEROPENEM 2,000 MG in SODIUM CHLORIDE 0.9% 100 ML IV SCH ×3 (05:27→21:46)
--- NOTE | 2020-12-26 07:36 | Progress Note ---
Assessment and Plan Assessment and plan: Hospital course to date 60-year-old -[place] Islander male with history of hypertension, alcoholism, hyperlipidemia, recurrent pancreatitis who was previously admitted on 11/19/2020 with complaints of acute episode of abdominal pain radiating to the left side to the back x3-4 days and alcohol withdrawal symptoms. He was found to have acute pancreatitis secondary to alcohol abuse. His course was complicated by JOHN, hypernatremia, UTI, and sepsis secondary to pancreatic duct leak. On 12/05 he underwent drainage catheter placement in left upper quadrant. On 12/12 MRCP was done and showed pancreatic duct irregularities. He was seen and evaluated by urology, general surgery, and ID. On 12/16 patient was transferred to [facility] to be seen by interventional GI (Dr. Alfie Villalobos) for possible ERCP. Dr. Alfie Villalobos evaluate patient and decided there is no role for ERCP at this time. Initial management should be geared towards resolution of fluid collection and percutaneous drain management per IR, with recommendations to flush drains with 20-30 cc of H2O twice daily, and follow-up with GI as outpatient in 4 to 6 weeks. Patient was transferred back to [facility] for further evaluation and treatment. Midline was placed at [facility] with anticipation of long-term (4 to 6 weeks) IV ABX. 12/20: Continue supportive care, Complete abx as recommended by JANA CHAVEZ following and arranging for SNF placement. 12/21: We will give a bolus of 500 cc fluids. Monitor nausea. Antiemetics if needed., continue PT/OT, Continue working on home antibiotics. 12/22: Patient clinically stable FLORA drain continues to drain Case management continues to work on placement. 12/23: Patient seen and examined, continues on abx, Case management consulted for meropenem 2g q8h until 01/11/2021. Still awaiting placement as family unable to take care of him. Continue daily PT OT 12/24/2020; patient is pending placement. Will follow with case management. Continue with IV antibiotics. Need outpatient IV antibiotic arrangement. 12/25/2020: Patient is still awaiting insurance authorization for placement and IV antibiotics. Discussed with case management this morning. 12/26/2020: Patient is still awaiting insurance authorization for placement and IV antibiotics. Discussed with case management this morning as well as patient Assessment and Plan # Bacterial sepsis secondary to pancreatic leak -large multifocal fluid and gas collections in the abdomen. -12/02 IR drainage with about 500 cc of pinkish material drained -12/05 CT-guided placement of 8 [place] drainage catheter in left upper quadrant fluid -12/13/2020 LUQ drainage cultures: MDR E.coli resistant to zosyn, amp, FQ, cefazolin -12/15/2020 started on meropenem due to MDR E. 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 -Will likely need follow-up CT abdomen pelvis in 4 to 6 weeks to determine optimal timing of removal of drains -Recommends outpatient GI follow-up [facility] in [place], [place] ([phone]) -Readmitted back to [facility] on 12/19 # HTN -Monitor BP -Resume metoprolol 12.5 twice daily # EtOH Abuse -Last drink unknown -[facility] protocol -Continue p.o. thiamine and Folic Acid -On D5 06/15 NS -Counseled for cessation abuse # Tobacco abuse -Current every day smoker -Counseled for cessation -Nicotine patch when necessary # DVT and GI PPX -On Protonix and Heparin Total Time Spent with Patient (Minutes): 35 History Interval history: No acute overnight events. No drainage from drains noted this AM. Patient had no complaints. Improved appetite but still struggles to eat food. Encouraged patient to continue drinking ensure shakes. Hospitalist Physical - Physical exam Narrative exam: Physical Exam: GENERAL APPEARANCE: Well developed, well nourished, alert and cooperative, and appears to be in no acute distress. HEAD: normocephalic. EYES: PERRL, EOMI. Vision is grossly intact. EARS: hearing intact NOSE: No nasal discharge. CARDIAC: Normal S1 and S2. No S3, S4 or murmurs. Rhythm is regular. There is no peripheral edema, cyanosis or pallor. Extremities are warm and well perfused. LUNGS: Clear to auscultation and percussion without rales, rhonchi, wheezing or diminished breath sounds. ABDOMEN: Positive bowel sounds. left upper quadrant FLORA drain noted with no output noted. MUSKULOSKELETAL: Adequately aligned spine. ROM intact spine and extremities. No joint erythema or tenderness. Normal muscular development. Normal gait. BACK: Examination of the spine reveals normal gait and posture, no spinal deformity, symmetry of spinal muscles, without tenderness, decreased range of motion or muscular spasm. EXTREMITIES: No significant deformity or joint abnormality. No edema. Peripheral pulses intact. No varicosities. LOWER EXTREMITY: nonedamatous, both femoral/pedal pulses are normal. NEUROLOGICAL: CN II-XII grossly intact. Strength and sensation symmetric and intact throughout. SKIN: Skin normal color, texture and turgor with no lesions or eruptions. PSYCHIATRIC: The mental examination revealed the patient was oriented to person, place, and time. - Constitutional Vitals: Temp Pulse Resp BP Pulse Ox 98.2 F 80 16 102/72 100 12/26/20 04:28 12/26/20 04:28 12/26/20 04:28 12/26/20 04:28 12/26/20 04:28 Results - Labs CBC & Chem 7: 12/19/20 01:34 12/20/20 06:49 Labs: Laboratory Last Values WBC 7.1 K/mm3 (4.5-11.0) 12/19/20 01:34 RBC 3.18 M/mm3 (3.65-5.03) L 12/19/20 01:34 Hgb 8.4 gm/dl (11.8-15.2) L 12/19/20 01:34 Hct 25.0 % (35.5-45.6) L 12/19/20 01:34 MCV 79 fl (84-94) L 12/19/20 01:34 MCH 26 pg (28-32) L 12/19/20 01:34 MCHC 34 % (32-34) 12/19/20 01:34 RDW 18.9 % (13.2-15.2) H 12/19/20 01:34 Plt Count 281 K/mm3 (140-440) 12/19/20 01:34 Lymph % (Auto) 16.9 % (13.4-35.0) 12/19/20 01:34 [place] % (Auto) 12.3 % (0.0-7.3) H 12/19/20 01:34 Eos % (Auto) 0.8 % (0.0-4.3) 12/19/20 01:34 Baso % (Auto) 1.3 % (0.0-1.8) 12/19/20 01:34 Lymph # (Auto) 1.2 K/mm3 (1.2-5.4) 12/19/20 01:34 [place] # (Auto) 0.9 K/mm3 (0.0-0.8) H 12/19/20 01:34 Eos # (Auto) 0.1 K/mm3 (0.0-0.4) 12/19/20 01:34 Baso # (Auto) 0.1 K/mm3 (0.0-0.1) 12/19/20 01:34 Seg Neutrophils % 68.7 % (40.0-70.0) 12/19/20 01:34 Seg Neutrophils # 4.8 K/mm3 (1.8-7.7) 12/19/20 01:34 Sodium 135 mmol/L (137-145) L 12/20/20 06:49 Potassium 3.8 mmol/L (3.6-5.0) 12/20/20 06:49 Chloride 101.6 mmol/L (98-107) 12/20/20 06:49 Carbon Dioxide 23 mmol/L (22-30) 12/20/20 06:49 Anion Gap 14 mmol/L 12/20/20 06:49 BUN 3 mg/dL (9-20) L 12/20/20 06:49 Creatinine 0.3 mg/dL (0.8-1.3) L 12/20/20 06:49 Estimated GFR > 60 ml/min 12/20/20 06:49 BUN/Creatinine Ratio 10 % 12/20/20 06:49 Glucose 85 mg/dL (75-100) 12/20/20 06:49 POC Glucose 92 mg/dL (70-105) 12/26/20 06:00 Calcium 8.2 mg/dL (8.4-10.2) L 12/20/20 06:49 Phosphorus 1.50 mg/dL (2.5-4.5) L 12/19/20 01:34 Magnesium 1.30 mg/dL (1.7-2.3) L 12/19/20 01:34 Total Bilirubin 0.30 mg/dL (0.1-1.2) 12/20/20 06:49 AST 11 units/L (5-40) 12/20/20 06:49 ALT < 5 units/L (7-56) L 12/20/20 06:49 Alkaline Phosphatase 124 units/L (35-129) 12/20/20 06:49 Ammonia 41.0 umol/L (25-60) 12/19/20 01:34 Total Protein 5.3 g/dL (6.3-8.2) L 12/20/20 06:49 Albumin 2.4 g/dL (3.9-5) L 12/20/20 06:49 Albumin/Globulin Ratio 0.8 % 12/20/20 06:49 Amylase 42 units/L (27-131) 12/19/20 01:34 Procalcitonin < 0.05 ng/mL (<0.15) 12/19/20 01:34 Coronavirus (PCR) Negative (Negative) 12/21/20 Unknown Viramontes/IV: Voiding Method Urinal Active Medications - Current Medications Current Medications: Generic Name Dose Route Start Last Admin Trade Name Freq PRN Reason Stop Dose Admin Acetaminophen 650 mg 12/19/20 00:37 Acetaminophen 325 Mg Tab PO Q4H PRN Pain MILD(1-3)/Fever >100.5/[place] Albuterol 2.5 mg 12/19/20 00:37 Albuterol 2.5 Mg/3 Ml Nebu IH Q3HRT PRN Shortness Of Breath Cyanocobalamin 100 mcg 12/19/20 10:00 12/25/20 09:34 Cyanocobalamin (Vit B-12) 100 Mcg Tab PO 100 mcg QDAY JANNETH Administration Folic Acid 1 mg 12/19/20 10:00 12/25/20 09:34 Folic Acid 1 Mg Tab PO 1 mg QDAY JANNETH Administration Heparin Sodium (Porcine) 5,000 unit 12/19/20 10:00 12/25/20 21:43 Heparin 5,000 Unit/1 Ml Vial SUB-Q 5,000 unit Q12HR JANNETH Administration Hydromorphone HCl 0.5 mg 12/19/20 00:41 12/24/20 05:14 Hydromorphone 1 Mg/1 Ml Inj IV 0.5 mg Q3H PRN Administration Pain , Severe (7-10) Meropenem 2,000 mg/ Sodium 100 mls @ 100 mls/hr 12/19/20 06:00 12/26/20 05:27 Chloride IV 01/11/21 22:59 100 mls/hr Q8HR JANNETH Administration Lorazepam 2 mg 12/19/20 00:46 Lorazepam 2 Mg/Ml Vial IV Q1H PRN CIWA-Ar 8-15 Metoprolol Tartrate 12.5 mg 12/19/20 10:00 12/25/20 21:59 Metoprolol Tartrate 25 Mg Tab PO 12.5 mg BID JANNETH Administration Morphine Sulfate 2 mg 12/19/20 00:41 12/26/20 01:43 Morphine 2 Mg/1 Ml Inj IV 2 mg Q4H PRN Administration Pain, Moderate (4-6) Naloxone HCl 0.1 mg 12/19/20 00:41 Naloxone 0.4 Mg/1 Ml Inj IV Q2MIN PRN Res Rate </= 8 or 02 SAT < 92% Nicotine 14 mg 12/19/20 10:00 12/25/20 09:34 Nicotine 14 Mg/24 Hr Patch TD 14 mg QDAY JANNETH Administration Ondansetron HCl 4 mg 12/19/20 00:37 Ondansetron 4 Mg/2 Ml Inj IV Q6H PRN Nausea And Vomiting Pantoprazole Sodium 40 mg 12/19/20 10:00 12/25/20 09:34 Pantoprazole 40 Mg Tab PO 40 mg DAILY JANNETH Administration Sodium Chloride 10 ml 12/19/20 10:00 12/25/20 21:44 Sodium Chloride 0.9% 10 Ml Flush Syringe IV 10 ml BID JANNETH Administration Sodium Chloride 10 ml 12/19/20 00:37 Sodium Chloride 0.9% 10 Ml Flush Syringe IV PRN PRN LINE FLUSH Sterile Water 1,000 ml 12/19/20 04:55 Water For Irrig Sterile 1,000 Ml Bottle IR DIRECT [facility] Nutrition/Malnutrition Assess - Dietary Evaluation Nutrition/Malnutrition Findings: Nutrition Notes Start: 12/19/20 11:12 Freq: Status: Active Protocol: Document 12/25/20 13:01 STEPHANIE (Rec: 12/25/20 13:06 STEPHANIE [id number]) Nutrition Notes Initial or Follow up Reassessment Current Diagnosis Hypertension,Hyperlipidemia Other Pertinent Diagnosis hx etoh abuse, infected pancreatic pseudocyst Current Diet Cardiac, Consistent CHO Labs/Tests Reviewed Pertinent Medications Reviewed Height 5 ft 10 in Weight 71.1 kg [place] Body Weight (kg) 75.45 BMI 22.4 Intake Prior to Admission Poor Weight change and time frame total of 9.6% wt loss in 9 days Weight Status Appropriate Subjective/Other Information FU for intakes. Pt drinking ONS but only bites of meals. He states the food often has a strange smell to him. Will liberalize diet to promote intakes. Percent of energy/protein needs met: 57%/68% Burn Absent Trauma Absent GI Symptoms Other Current % PO Poor (25-49%) Minimum of two criteria Yes Energy Intake (severe) < or equal to 50% Estimated Energy Requirement > or equal to 5 days Interpretation of Weight Loss (severe) >2% in 1 week #1 Nutrition Diagnosis Malnutrition Diagnosis Progress(for reassessment Continues documentation) Is patient on ventilator? No Is Patient Ambulatory and/or Out of Bed No REE-([facility]-confined to bed) 5835.114 Calculation Used for Recommendations [facility] Additional Notes Protein: (1.2-1.5g/kg) 88-111g Fluid: 1 ml/kcal or per MD Nutrition Intervention Change Diet Order: regular with [facility] soft Add Supplement/Snack (indicate name/kcal Ensure Enlive QID /protein ) Provides kCal: 1,400 Provides Protein (gm) 80 Goal #1 Meet at least 75% of energy and protein needs via PO and ONS Anticipated Discharge Needs: Low fat, no alcohol Follow-Up By: 12/27/20 Additional Comments FU for intakes and ONS tolerance
[2020-12-26] MEDS: HYDROmorphone 1 MG/1 ML INJ IV PRN (08:51)
[2020-12-26] MEDS: METOPROLOL TARTRATE 25 MG TAB PO SCH ×2 (09:07→21:47)
[2020-12-26] MEDS: NICOTINE 14 MG/24 HR PATCH TD SCH (09:07)
[2020-12-26] MEDS: FOLIC ACID 1 MG TAB PO SCH (09:07)
[2020-12-26] MEDS: HEPARIN 5,000 UNIT/1 ML VIAL SUB-Q SCH ×2 (09:08→21:47)
[2020-12-26] MEDS: CYANOCOBALAMIN (VIT B-12) 100 MCG TAB PO SCH (09:08)
[2020-12-26] MEDS: PANTOPRAZOLE 40 MG TAB PO SCH (09:08)
[2020-12-27] MEDS: HYDROmorphone 1 MG/1 ML INJ IV PRN (02:28)
[2020-12-27] MEDS: MEROPENEM 2,000 MG in SODIUM CHLORIDE 0.9% 100 ML IV SCH ×2 (05:27→13:53)
[2020-12-27] MEDS: PANTOPRAZOLE 40 MG TAB PO SCH (10:49)
[2020-12-27] MEDS: HEPARIN 5,000 UNIT/1 ML VIAL SUB-Q SCH (10:49)
[2020-12-27] MEDS: FOLIC ACID 1 MG TAB PO SCH (10:49)
[2020-12-27] MEDS: CYANOCOBALAMIN (VIT B-12) 100 MCG TAB PO SCH (10:49)
[2020-12-27] MEDS: NICOTINE 14 MG/24 HR PATCH TD SCH (10:49)
[2020-12-27] MEDS: METOPROLOL TARTRATE 25 MG TAB PO SCH (11:05)
[2020-12-27] MEDS: MORPHINE 2 MG/1 ML INJ IV PRN (11:09)
[2020-12-27] MEDS ORDERED: oxyCODONE /ACETAMINOPHEN 5-325MG TAB PO PRN (11:21)
[2020-12-27] MEDS ORDERED: MORPHINE 2 MG/1 ML INJ IV PRN (11:22)
--- NOTE | 2020-12-27 14:45 | Progress Note ---
Assessment and Plan Assessment and plan: Hospital course to date 60-year-old -Angolan male with history of hypertension, alcoholism, hyperlipidemia, recurrent pancreatitis who was previously admitted on 11/19/2020 with complaints of acute episode of abdominal pain radiating to the left side to the back x3-4 days and alcohol withdrawal symptoms. He was found to have acute pancreatitis secondary to alcohol abuse. His course was complicated by JOHN, hypernatremia, UTI, and sepsis secondary to pancreatic duct leak. On 12/05 he underwent drainage catheter placement in left upper quadrant. On 12/12 MRCP was done and showed pancreatic duct irregularities. He was seen and evaluated by urology, general surgery, and ID. On 12/16 patient was transferred to [facility] to be seen by interventional GI (Dr. Alfie Villalobos) for possible ERCP. Dr. Alfie Villalobos evaluate patient and decided there is no role for ERCP at this time. Initial management should be geared towards resolution of fluid collection and percutaneous drain management per IR, with recommendations to flush drains with 20-30 cc of H2O twice daily, and follow-up with GI as outpatient in 4 to 6 weeks. Patient was transferred back to [facility] for further evaluation and treatment. Midline was placed at [facility] with anticipation of long-term (4 to 6 weeks) IV ABX. 12/20: Continue supportive care, Complete abx as recommended by JANA CHAVEZ following and arranging for SNF placement. 12/21: We will give a bolus of 500 cc fluids. Monitor nausea. Antiemetics if needed., continue PT/OT, Continue working on home antibiotics. 12/22: Patient clinically stable FLORA drain continues to drain Case management continues to work on placement. 12/23: Patient seen and examined, continues on abx, Case management consulted for meropenem 2g q8h until 01/11/2021. Still awaiting placement as family unable to take care of him. Continue daily PT OT 12/24/2020; patient is pending placement. Will follow with case management. Continue with IV antibiotics. Need outpatient IV antibiotic arrangement. 12/25/2020: Patient is still awaiting insurance authorization for placement and IV antibiotics. Discussed with case management this morning. 12/26/2020: Patient is still awaiting insurance authorization for placement and IV antibiotics. Discussed with case management this morning as well as patient 12/27/2020: Patient has obtained insurance authorization. Awaiting negative covid test for placement. Assessment and Plan # Bacterial sepsis secondary to pancreatic leak -large multifocal fluid and gas collections in the abdomen. -12/02 IR drainage with about 500 cc of pinkish material drained -12/05 CT-guided placement of 8 Italian drainage catheter in left upper quadrant fluid -12/13/2020 LUQ drainage cultures: MDR E.coli resistant to zosyn, amp, FQ, cefazolin -12/15/2020 started on meropenem due to MDR E. coli resistant to end in approx 4 weeks per ID recs -ID consulted # Acute on chronic alcohol-related pancreatitis -On full liquid diet, advance as tolerated # Pancreatic fluid leak -Transfer to [facility] for ERCP, however ERCP was not done, per recommendations of GI flush drains with 20-30cc of H2O BID, however fluid collection recur in the future after removal of drains then patient can be considered for ERCP. -Will likely need follow-up CT abdomen pelvis in 4 to 6 weeks to determine optimal timing of removal of drains -Recommends outpatient GI follow-up [facility] in [place], [place] ([phone]) -Readmitted back to [facility] on 12/19 # HTN -Monitor BP -Resume metoprolol 12.5 twice daily # EtOH Abuse -Last drink unknown -[facility] protocol -Continue p.o. thiamine and Folic Acid -On D5 1/2 NS -Counseled for cessation abuse # Tobacco abuse -Current every day smoker -Counseled for cessation -Nicotine patch when necessary # DVT and GI PPX -On Protonix and Heparin History Interval history: No acute overnight complaints. Hospitalist Physical - Physical exam Narrative exam: Physical Exam: GENERAL APPEARANCE: Well developed, well nourished, alert and cooperative, and appears to be in no acute distress. HEAD: normocephalic. EYES: PERRL, EOMI. Vision is grossly intact. EARS: hearing intact NOSE: No nasal discharge. CARDIAC: Normal S1 and S2. No S3, S4 or murmurs. Rhythm is regular. There is no peripheral edema, cyanosis or pallor. Extremities are warm and well perfused. LUNGS: Clear to auscultation and percussion without rales, rhonchi, wheezing or diminished breath sounds. ABDOMEN: Positive bowel sounds. left upper quadrant FLORA drain noted with no output noted. MUSKULOSKELETAL: Adequately aligned spine. ROM intact spine and extremities. No joint erythema or tenderness. Normal muscular development. Normal gait. BACK: Examination of the spine reveals normal gait and posture, no spinal deformity, symmetry of spinal muscles, without tenderness, decreased range of motion or muscular spasm. EXTREMITIES: No significant deformity or joint abnormality. No edema. Peripheral pulses intact. No varicosities. LOWER EXTREMITY: nonedamatous, both femoral/pedal pulses are normal. NEUROLOGICAL: CN II-XII grossly intact. Strength and sensation symmetric and intact throughout. SKIN: Skin normal color, texture and turgor with no lesions or eruptions. PSYCHIATRIC: The mental examination revealed the patient was oriented to person, place, and time. - Constitutional Vitals: Temp Pulse Resp BP Pulse Ox 98.1 F 81 20 92/66 100 12/27/20 10:54 12/27/20 10:54 12/27/20 10:54 12/27/20 10:54 12/27/20 10:54 Results - Labs CBC & Chem 7: 12/19/20 01:34 12/20/20 06:49 Labs: Laboratory Last Values WBC 7.1 K/mm3 (4.5-11.0) 12/19/20 01:34 RBC 3.18 M/mm3 (3.65-5.03) L 12/19/20 01:34 Hgb 8.4 gm/dl (11.8-15.2) L 12/19/20 01:34 Hct 25.0 % (35.5-45.6) L 12/19/20 01:34 MCV 79 fl (84-94) L 12/19/20 01:34 MCH 26 pg (28-32) L 12/19/20 01:34 MCHC 34 % (32-34) 12/19/20 01:34 RDW 18.9 % (13.2-15.2) H 12/19/20 01:34 Plt Count 281 K/mm3 (140-440) 12/19/20 01:34 Lymph % (Auto) 16.9 % (13.4-35.0) 12/19/20 01:34 [place] % (Auto) 12.3 % (0.0-7.3) H 12/19/20 01:34 Eos % (Auto) 0.8 % (0.0-4.3) 12/19/20 01:34 Baso % (Auto) 1.3 % (0.0-1.8) 12/19/20 01:34 Lymph # (Auto) 1.2 K/mm3 (1.2-5.4) 12/19/20 01:34 [place] # (Auto) 0.9 K/mm3 (0.0-0.8) H 12/19/20 01:34 Eos # (Auto) 0.1 K/mm3 (0.0-0.4) 12/19/20 01:34 Baso # (Auto) 0.1 K/mm3 (0.0-0.1) 12/19/20 01:34 Seg Neutrophils % 68.7 % (40.0-70.0) 12/19/20 01:34 Seg Neutrophils # 4.8 K/mm3 (1.8-7.7) 12/19/20 01:34 Sodium 135 mmol/L (137-145) L 12/20/20 06:49 Potassium 3.8 mmol/L (3.6-5.0) 12/20/20 06:49 Chloride 101.6 mmol/L (98-107) 12/20/20 06:49 Carbon Dioxide 23 mmol/L (22-30) 12/20/20 06:49 Anion Gap 14 mmol/L 12/20/20 06:49 BUN 3 mg/dL (9-20) L 12/20/20 06:49 Creatinine 0.3 mg/dL (0.8-1.3) L 12/20/20 06:49 Estimated GFR > 60 ml/min 12/20/20 06:49 BUN/Creatinine Ratio 10 % 12/20/20 06:49 Glucose 85 mg/dL (75-100) 12/20/20 06:49 POC Glucose 87 mg/dL (70-105) 12/27/20 10:52 Calcium 8.2 mg/dL (8.4-10.2) L 12/20/20 06:49 Phosphorus 1.50 mg/dL (2.5-4.5) L 12/19/20 01:34 Magnesium 1.30 mg/dL (1.7-2.3) L 12/19/20 01:34 Total Bilirubin 0.30 mg/dL (0.1-1.2) 12/20/20 06:49 AST 11 units/L (5-40) 12/20/20 06:49 ALT < 5 units/L (7-56) L 12/20/20 06:49 Alkaline Phosphatase 124 units/L (35-129) 12/20/20 06:49 Ammonia 41.0 umol/L (25-60) 12/19/20 01:34 Total Protein 5.3 g/dL (6.3-8.2) L 12/20/20 06:49 Albumin 2.4 g/dL (3.9-5) L 12/20/20 06:49 Albumin/Globulin Ratio 0.8 % 12/20/20 06:49 Amylase 42 units/L (27-131) 12/19/20 01:34 Procalcitonin < 0.05 ng/mL (<0.15) 12/19/20 01:34 Coronavirus (PCR) Negative (Negative) 12/21/20 Unknown Viramontes/IV: Voiding Method Urinal Active Medications - Current Medications Current Medications: Generic Name Dose Route Start Last Admin Trade Name Freq PRN Reason Stop Dose Admin Acetaminophen 650 mg 12/19/20 00:37 Acetaminophen 325 Mg Tab PO Q4H PRN Pain MILD(1-3)/Fever >100.5/[place] Albuterol 2.5 mg 12/19/20 00:37 Albuterol 2.5 Mg/3 Ml Nebu IH Q3HRT PRN Shortness Of Breath Cyanocobalamin 100 mcg 12/19/20 10:00 12/27/20 10:49 Cyanocobalamin (Vit B-12) 100 Mcg Tab PO 100 mcg QDAY JANNETH Administration Folic Acid 1 mg 12/19/20 10:00 12/27/20 10:49 Folic Acid 1 Mg Tab PO 1 mg QDAY JANNETH Administration Heparin Sodium (Porcine) 5,000 unit 12/19/20 10:00 12/27/20 10:49 Heparin 5,000 Unit/1 Ml Vial SUB-Q 5,000 unit Q12HR JANNETH Administration Meropenem 2,000 mg/ Sodium 100 mls @ 100 mls/hr 12/19/20 06:00 12/27/20 13:53 Chloride IV 01/11/21 22:59 100 mls/hr Q8HR JANNETH Administration Lorazepam 2 mg 12/19/20 00:46 Lorazepam 2 Mg/Ml Vial IV Q1H PRN CIWA-Ar 8-15 Metoprolol Tartrate 12.5 mg 12/19/20 10:00 12/27/20 11:05 Metoprolol Tartrate 25 Mg Tab PO 12.5 mg BID JANNETH Administration Morphine Sulfate 2 mg 12/27/20 11:22 Morphine 2 Mg/1 Ml Inj IV Q4H PRN breakthrough pain Naloxone HCl 0.1 mg 12/19/20 00:41 Naloxone 0.4 Mg/1 Ml Inj IV Q2MIN PRN Res Rate </= 8 or 02 SAT < 92% Nicotine 14 mg 12/19/20 10:00 12/27/20 10:49 Nicotine 14 Mg/24 Hr Patch TD 14 mg QDAY JANNETH Administration Ondansetron HCl 4 mg 12/19/20 00:37 Ondansetron 4 Mg/2 Ml Inj IV Q6H PRN Nausea And Vomiting Oxycodone/Acetaminophen 1 tab 12/27/20 11:21 12/27/20 13:58 Oxycodone /Acetaminophen 5-325mg Tab PO 1 tab Q8H PRN Administration Pain, Moderate (4-6) Pantoprazole Sodium 40 mg 12/19/20 10:00 12/27/20 10:49 Pantoprazole 40 Mg Tab PO 40 mg DAILY JANNETH Administration Sodium Chloride 10 ml 12/19/20 10:00 12/27/20 10:49 Sodium Chloride 0.9% 10 Ml Flush Syringe IV 10 ml BID JANNETH Administration Sodium Chloride 10 ml 12/19/20 00:37 Sodium Chloride 0.9% 10 Ml Flush Syringe IV PRN PRN LINE FLUSH Sterile Water 1,000 ml 12/19/20 04:55 Water For Irrig Sterile 1,000 Ml Bottle IR DIRECT [facility] Nutrition/Malnutrition Assess - Dietary Evaluation Nutrition/Malnutrition Findings: Nutrition Notes Start: 12/19/20 11:12 Freq: Status: Active Protocol: Document 12/27/20 12:18 (Rec: 12/27/20 12:24 [id number]) Nutrition Notes Initial or Follow up Reassessment Current Diagnosis Hypertension,Hyperlipidemia Other Pertinent Diagnosis hx etoh abuse, infected pancreatic pseudocyst Current Diet Cardiac, Consistent CHO Labs/Tests Reviewed Pertinent Medications Reviewed Height 5 ft 10 in Weight 70.2 kg [place] Body Weight (kg) 75.45 BMI 22.1 Weight change and time frame wt gain noted Weight Status Appropriate Subjective/Other Information FU for intakes. Pt continues to eat <25% of meals. He is drinking 100% of 3 ONS daily. Muliple ONS at bedside. Percent of energy/protein needs met: 80%/90% Burn Absent Trauma Absent GI Symptoms Other Current % PO Poor (25-49%) Minimum of two criteria Yes Energy Intake (severe) < or equal to 50% Estimated Energy Requirement > or equal to 5 days Interpretation of Weight Loss (severe) >2% in 1 week #1 Nutrition Diagnosis Malnutrition Diagnosis Progress(for reassessment Continues documentation) Is patient on ventilator? No Is Patient Ambulatory and/or Out of Bed No REE-([facility]-confined to bed) 6665.242 Calculation Used for Recommendations [facility] Additional Notes Protein: (1.2-1.5g/kg) 88-111g Fluid: 1 ml/kcal or per MD Nutrition Intervention Change Diet Order: regular with [facility] soft Add Supplement/Snack (indicate name/kcal Ensure Enlive TID /protein ) Provides kCal: 1,050 Provides Protein (gm) 60 Goal #1 Meet at least 75% of energy and protein needs via PO and ONS Anticipated Discharge Needs: Low fat, no alcohol Follow-Up By: 12/31/20 Additional Comments FU for intakes and ONS tolerance
--- NOTE | 2020-12-27 15:06 | Discharge Summary ---
Providers - Providers Date of Admission: 12/19/20 11:36 Attending physician: CASSIA SHAFFER MD 12/19/20 00:41 Consult to Physician [CONS] Routine Comment: Consulting Provider: ALEJANDRA QUEEN Physician Instructions: Reason For Exam: Multil loculated fluid collection abd /?abscess 12/19/20 00:44 Consult to Dietitian/Nutrition [CONS] Routine Physician Instructions: Reason For Exam: Reason for Consult: Malnutrition 12/19/20 00:45 Occupational Therapy Evaluate and Treat [CONS] Routine Comment: Reason For Exam: Eval Physical Therapy Evaluation and Treat [CONS] Routine Comment: Reason For Exam: Eval 12/19/20 15:13 Consult to Case Management [CONS] Routine Services Needed at Discharge: Home Health Services Notified:: CM Additional Physician Instructions: Jud Garzon MD [facility] M: [phone] O: [phone] F: [phone] Outpatient parenteral antibiotic therapy orders Diagnosis: Intra-abdominal abscess Antibiotic administration: Meropenem 2 g every 8 hours until 01/11/2021 Line: Midline Lab monitoring: CBC with differential, BUN, creatinine, LFTs, CRP once per week preferably on Wednesday or Wednesday For critical labs, call office: [phone] Jud Garzon Primary care physician: SHEAR GRINDER OPERATOR HELPER Hospitalization Condition: Fair Hospital course: Hospital course to date 60-year-old -Slovenian male with history of hypertension, alcoholism, hyperlipidemia, recurrent pancreatitis who was previously admitted on 11/19/2020 with complaints of acute episode of abdominal pain radiating to the left side to the back x3-4 days and alcohol withdrawal symptoms. He was found to have acute pancreatitis secondary to alcohol abuse. His course was complicated by JOHN, hypernatremia, UTI, and sepsis secondary to pancreatic duct leak. On 12/05 he underwent drainage catheter placement in left upper quadrant. On 12/12 MRCP was done and showed pancreatic duct irregularities. He was seen and evaluated by urology, general surgery, and ID. On 12/16 patient was transferred to [facility] to be seen by interventional GI (Dr. Alfie Villalobos) for possible ERCP. Dr. Alfie Villalobos evaluate patient and decided there is no role for ERCP at this time. Initial management should be geared towards resolution of fluid collection and percutaneous drain management per IR, with recommendations to flush drains with 20-30 cc of H2O twice daily, and follow-up with GI as outpatient in 4 to 6 weeks. Patient was transferred back to [facility] for further evaluation and treatment. Midline was placed at [facility] with anticipation of long-term (4 to 6 weeks) IV ABX. 12/20: Continue supportive care, Complete abx as recommended by ID, CM following and arranging for SNF placement. 12/21: We will give a bolus of 500 cc fluids. Monitor nausea. Antiemetics if needed., continue PT/OT, Continue working on home antibiotics. 12/22: Patient clinically stable FLORA drain continues to drain Case management continues to work on placement. 12/23: Patient seen and examined, continues on abx, Case management consulted for meropenem 2g q8h until 01/11/2021. Still awaiting placement as family unable to take care of him. Continue daily PT OT 12/24/2020; patient is pending placement. Will follow with case management. Continue with IV antibiotics. Need outpatient IV antibiotic arrangement. 12/25/2020: Patient is still awaiting insurance authorization for placement and IV antibiotics. Discussed with case management this morning. 12/26/2020: Patient is still awaiting insurance authorization for placement and IV antibiotics. Discussed with case management this morning as well as patient 12/27/2020: Patient has obtained insurance authorization. Awaiting negative covid test for placement. Assessment and Plan # Bacterial sepsis secondary to pancreatic leak -large multifocal fluid and gas collections in the abdomen. -12/02 IR drainage with about 500 cc of pinkish material drained -12/05 CT-guided placement of 8 Malaysian drainage catheter in left upper quadrant fluid -12/13/2020 LUQ drainage cultures: MDR E.coli resistant to zosyn, amp, FQ, cefazolin -12/15/2020 started on meropenem due to MDR E. 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 -Will likely need follow-up CT abdomen pelvis in 4 to 6 weeks to determine optimal timing of removal of drains -Recommends outpatient GI follow-up [facility] in [place], [place] ([phone]) -Readmitted back to [facility] on 12/19 # HTN -Monitor BP -Resume metoprolol 12.5 twice daily # EtOH Abuse -Last drink unknown -[facility] protocol -Continue p.o. thiamine and Folic Acid -On D5 06/15 NS -Counseled for cessation abuse # Tobacco abuse -Current every day smoker -Counseled for cessation -Nicotine patch when necessary # DVT and GI PPX -On Protonix and Heparin Disposition: DC-30 STILL A PATIENT Final Discharge Diagnosis (Prints w/discharge instructions): Bacterial sepsis secondary to pancreatic leak Time spent for discharge: 35 Core Measure Documentation - Palliative Care Palliative Care/ Comfort Measures: Not Applicable - Core Measures Any of the following diagnoses?: none Exam - Physical Exam Narrative exam: Physical Exam: GENERAL APPEARANCE: Well developed, well nourished, alert and cooperative, and appears to be in no acute distress. HEAD: normocephalic. EYES: PERRL, EOMI. Vision is grossly intact. EARS: hearing intact NOSE: No nasal discharge. CARDIAC: Normal S1 and S2. No S3, S4 or murmurs. Rhythm is regular. There is no peripheral edema, cyanosis or pallor. Extremities are warm and well perfused. LUNGS: Clear to auscultation and percussion without rales, rhonchi, wheezing or diminished breath sounds. ABDOMEN: Positive bowel sounds. left upper quadrant FLORA drain noted with no output noted. MUSKULOSKELETAL: Adequately aligned spine. ROM intact spine and extremities. No joint erythema or tenderness. Normal muscular development. Normal gait. BACK: Examination of the spine reveals normal gait and posture, no spinal deformity, symmetry of spinal muscles, without tenderness, decreased range of motion or muscular spasm. EXTREMITIES: No significant deformity or joint abnormality. No edema. Peripheral pulses intact. No varicosities. LOWER EXTREMITY: nonedamatous, both femoral/pedal pulses are normal. NEUROLOGICAL: CN II-XII grossly intact. Strength and sensation symmetric and intact throughout. SKIN: Skin normal color, texture and turgor with no lesions or eruptions. PSYCHIATRIC: The mental examination revealed the patient was oriented to person, place, and time. - Constitutional Vitals: Temp Pulse Resp BP Pulse Ox 98.1 F 81 20 92/66 100 12/27/20 10:54 12/27/20 10:54 12/27/20 10:54 12/27/20 10:54 12/27/20 10:54 Plan Activity: fall precautions Weight Bearing Status: Weight Bear as Tolerated Diet: regular Follow up with: PRIMARY CARE, [Primary Care Provider] - 7 Days
[2020-12-27 17:48] VITALS: BP 101/67
== END 2020-12-27 20:27 | DRG 871 ==
LOC: 3A 14:38 → UNDOADMOB 14:38 → 3A 12-19 01:09 → OBSVTOIN 12-19 11:36
PROVIDERS: ADMIT Internal Medicine Geriatric Medicine; ATTEND Internal Medicine
DX: A41.9 Sepsis, unspecified organism (principal); K85.20 Alcohol induced acute pancreatitis without necrosis or infection; F10.231 Alcohol dependence with withdrawal delirium; N17.9 Acute kidney failure, unspecified; K86.3 Pseudocyst of pancreas; N39.0 Urinary tract infection, site not specified; K86.0 Alcohol-induced chronic pancreatitis; Z20.822 Contact with and (suspected) exposure to COVID-19; I10 Essential (primary) hypertension; K21.9 Gastro-esophageal reflux disease without esophagitis; E83.42 Hypomagnesemia; E88.09 Other disorders of plasma-protein metabolism, not elsewhere classified; E83.39 Other disorders of phosphorus metabolism; F17.200 Nicotine dependence, unspecified, uncomplicated; Z71.6 Tobacco abuse counseling; Z79.899 Other long term (current) drug therapy; Z71.41 Alcohol abuse counseling and surveillance of alcoholic
CPT/HCPCS: 36415; 80053; 82140; 82150; 82962; 83735; 84100; 84145; 85025; 87040; 94640; 99406; G0378; G0379; J1170; J1644; J2185; J2270; J3475; J7040; U0003

== ENCOUNTER 2021-03-10 13:23 | Emergency (ER) | payer MEDICARE ==
--- NOTE | 2021-03-10 16:56 | Emergency Department Report ---
ED Abdominal Pain HPI - General Chief Complaint: Tube Replacement Stated Complaint: DRAINAGE TUBES? Time Seen by Provider: 03/10/21 15:49 Source: patient, old records reviewed Mode of arrival: Ambulatory Limitations: No Limitations - History of Present Illness Initial Comments: 60-year male presents to the hospital with 2 abdominal drainage tubes stating that the posterior tube has been out x1 week. As per medical record these tubes were placed by interventional radiology in December for 5 pelvic fluid collections. Patient was discharged on IV antibiotics at the time was supposed to follow-up for repeat CT scan to determine if drainage tubes can be removed within 4 to 6 weeks. Patient states he has been "getting the run around" and has not been seen since discharge from the hospital. He seems to be unclear about his follow-up. He denies acute pain, fever, nausea, or vomiting. He states that the portal anterior tube drains a small amount daily and has significantly decreased compared to when it was first inserted. Post surgery she was also draining very little prior to coming out. Previous medical record reviewed for further clarification of patient's hospital course and plan Severity scale (0 -10): 0 - Related Data Home Medications Medication Instructions Recorded Confirmed Last Taken Lipase/Protease/Amylase [Karen Dr 1 cap PO TID 11/20/20 12/19/20 11/18/20 6,000 Units] Potassium Gluconate [Potassium] 595 mg PO QDAY 11/20/20 12/19/20 11/18/20 allopurinoL [Zyloprim] 300 mg PO DAILY 11/20/20 12/19/20 11/18/20 Previous Rx's Medication Instructions Recorded Last Taken Type Meropenem [Merrem] 2,000 mg IV Q8HR vial 12/16/20 Unknown Rx Allergies Allergy/AdvReac Type Severity Reaction Status Date / Time No Known Allergies Allergy Verified 03/10/21 13:35 ED Review of Systems ROS: Stated complaint: DRAINAGE TUBES? Other details as noted in HPI Comment: All other systems reviewed and negative ED Past Medical Hx - Past Medical History Hx Hypertension: Yes Hx Congestive Heart Failure: No Hx Diabetes: No Hx Arthritis: Yes Hx Asthma: No Hx COPD: No Additional medical history: gouty arthritis. pancreatitis - Surgical History Additional Surgical History: surgery on scrotum - Social History Smoking Status: Never Smoker Substance Use Type: None - Medications Home Medications: Home Medications Medication Instructions Recorded Confirmed Last Taken Type Lipase/Protease/Amylase [Karen Au 1 cap PO TID 11/20/20 12/19/20 11/18/20 History 6,000 Units] Potassium Gluconate [Potassium] 595 mg PO QDAY 11/20/20 12/19/20 11/18/20 History allopurinoL [Zyloprim] 300 mg PO DAILY 11/20/20 12/19/20 11/18/20 History Meropenem [Merrem] 2,000 mg IV Q8HR vial 12/16/20 12/19/20 Unknown Rx ED Physical Exam - General Limitations: No Limitations - Other Other exam information: General: No acute distress Head: Atraumatic Eyes: normal appearance ENT: Moist mucous membranes Neck: Normal appearance, no midline tenderness Chest: Clear to auscultation bilaterally CV: Regular rate and rhythm Abdomen: Soft, normal bowel sounds, anterior superior percutaneous abdominal wall draining tube inserted. Drainage bag images time. Patient states he has ju st a small amount of drainage that he empties every other day. Posterior right flank percutaneous tube inserted however, not attached to bag. Abdomen soft, nontender, no skin erythema. Patient states wound dressings changed regularly by visiting home health nurse Back: Normal inspection Extremity: Normal inspection, full range of motion Neuro: Alert O x 3, no facial asymmetry, speech clear, no gross motor sensory deficit Psych: Appropriate behavior Skin: No rash ED Course Vital Signs 03/10/21 03/10/21 03/10/21 13:33 15:00 15:01 Temperature 98.7 F 98.4 F Pulse Rate 83 78 Respiratory 16 12 Rate Blood Pressure Blood Pressure 133/79 115/66 [Left] O2 Sat by Pulse 99 100 100 Oximetry 03/10/21 03/10/21 15:02 18:08 Temperature 98.4 F 98.1 F Pulse Rate 78 77 Respiratory 12 12 Rate Blood Pressure 115/66 Blood Pressure 126/75 [Left] O2 Sat by Pulse 100 99 Oximetry - Consultations Consultation #1: 03/10/21 16:56 Case discussed with interventional radiology Dr. Munoz who recommends repeat CT to evaluate fluid collections 03/10/21 18:49 I spoke to on-call GI doctor Dr. Markus Dickens who suggest that patient will likely need hepatobiliary surgery if fluid collections persist in spite of drainage tubes. Patient will likely need follow-up with tertiary care facility since we do not have the specialist here to deal with his problem ED Medical Decision Making - Lab Data Result diagrams: 03/10/21 16:40 03/10/21 16:40 Lab Results 03/10/21 03/10/21 Range/Units 16:40 16:40 WBC 7.4 (4.5-11.0) K/mm3 RBC 4.67 (3.65-5.03) M/mm3 Hgb 11.9 (11.8-15.2) gm/dl Hct 36.6 (35.5-45.6) % MCV 78 L (84-94) fl MCH 26 L (28-32) pg MCHC 33 (32-34) % RDW 16.8 H (13.2-15.2) % Plt Count 190 (140-440) K/mm3 Lymph % (Auto) 38.3 H (13.4-35.0) % [place] % (Auto) 9.7 H (0.0-7.3) % Eos % (Auto) 3.1 (0.0-4.3) % Baso % (Auto) 1.8 (0.0-1.8) % Lymph # (Auto) 2.8 (1.2-5.4) K/mm3 [place] # (Auto) 0.7 (0.0-0.8) K/mm3 Eos # (Auto) 0.2 (0.0-0.4) K/mm3 Baso # (Auto) 0.1 (0.0-0.1) K/mm3 Seg Neutrophils % 47.1 (40.0-70.0) % Seg Neutrophils # 3.5 (1.8-7.7) K/mm3 Sodium 136 L (137-145) mmol/L Potassium 4.2 (3.6-5.0) mmol/L Chloride 102.9 (98-107) mmol/L Carbon Dioxide 21 L (22-30) mmol/L Anion Gap 16 mmol/L BUN 12 (9-20) mg/dL Creatinine 0.6 L (0.8-1.3) mg/dL Estimated GFR > 60 ml/min BUN/Creatinine Ratio 20 % Glucose 82 (75-100) mg/dL Calcium 9.6 (8.4-10.2) mg/dL Total Bilirubin 0.40 (0.1-1.2) mg/dL AST 15 (5-40) units/L ALT 10 (7-56) units/L Alkaline Phosphatase 148 H (35-129) units/L Total Protein 7.8 (6.3-8.2) g/dL Albumin 4.3 (3.9-5) g/dL Albumin/Globulin Ratio 1.2 % Lipase 9 L (13-60) units/L - Medical Decision Making 60-year-old male presents to the hospital complaining of his posterior drainage tube being out. On examination there is an anterior posterior abdominal drainage tube. The percutaneous posterior tube was still inserted however, the bag was disconnected. Apparently this has been the case for 1 week. Tubes were placed here in December and despite discharge summary stating patient was supposed to have a repeat scan in 4 to 6 weeks after placement patient states he is getting the run around and has not been able to follow-up. Patient was originally discharged to the [facility] and it seems to be unclear exactly what his treatment plan was. He does have a home health nurse since being discharged from rehab. After discussion with interventional radiology we were going to attempt a CT abdomen and pelvis with IV contrast to assess pelvic fluid collection status. Unfortunately patient is a very hard stick and it was difficult obtaining IV access despite multiple times. I spoke to patient and he did not want any further attempts. I spoke to GI doctor correctional counselor Dr. Markus Dickens who clarified that patient will likely hepatobiliary surgery if he has persistent fluid collections. I believe that this is all chronic and patient is stable for outpatient follow-up if desired since he does not have pain, fever, or elevated white count. Patient states he had just very little drainage from tubes for quite some time. I went to the bedside to explain need for follow-up with hepatobiliary surgery at a tertiary center such as [place] or [place] however, patient had eloped from department. Patient also eloped from department prior to nurse being able to assess drainage tube for replacement bag Critical Care Time: No Critical care attestation.: If time is entered above; I have spent that time in minutes in the direct care of this critically ill patient, excluding procedure time. ED Disposition Clinical Impression: History of abdominal abscess, Non-compliance Disposition: LEFT AWOL/ELOPED Is pt being admited?: No Condition: Stable Time of Disposition: 18:59
[2021-03-10 17:19] LABS: Basophils # (Auto) 0.1 K/mm3 (0.0-0.1); Basophils % (Auto) 1.8 % (0.0-1.8); Eosinophils # (Auto) 0.2 K/mm3 (0.0-0.4); Eosinophils % (Auto) 3.1 % (0.0-4.3); Hematocrit 36.6 % (35.5-45.6); Hemoglobin 11.9 gm/dl (11.8-15.2); Lymphocytes # (Auto) 2.8 K/mm3 (1.2-5.4); Lymphocytes % (Auto) 38.3 % (13.4-35.0); Mean Corpuscular HGB Conc 33 % (32-34); Mean Corpuscular Volume 78 fl (84-94); Monocytes # (Auto) 0.7 K/mm3 (0.0-0.8); Monocytes % (Auto) 9.7 % (0.0-7.3); Red Blood Count 4.67 M/mm3 (3.65-5.03); Red Cell Distribution Width 16.8 % (13.2-15.2)
[2021-03-10 17:26] LABS: Alanine Aminotransferase 10 units/L (7-56); Albumin 4.3 g/dL (3.9-5); Blood Urea Nitrogen 12 mg/dL (9-20); Calcium 9.6 mg/dL (8.4-10.2); Hemolysis Index 6
[2021-03-10 17:27] LABS: BUN/Creatinine Ratio 20
[2021-03-10 17:37] LABS: Platelet Count 190 K/mm3 (140-440)
[2021-03-10 18:09] VITALS: BP 126/75
== END 2021-03-10 18:59 | disposition left against medical advice (07) ==
LOC: ED 13:23
DX: Z48.03 Encounter for change or removal of drains (principal); Z87.19 Personal history of other diseases of the digestive system; I10 Essential (primary) hypertension
CPT/HCPCS: 36415; 80053; 83690; 85025; 99283

== ENCOUNTER 2021-03-11 08:57 | Emergency (ER) | payer MEDICARE ==
[2021-03-11 09:33] VITALS: BP 120/79
--- NOTE | 2021-03-11 10:03 | Emergency Department Report ---
HPI - General Chief Complaint: Medical Clearance Time Seen by Provider: 03/11/21 09:35 - HPI HPI: This is a 60-year-old -[place] male presents to the emergency department for evaluation of drainage tubes that were placed in December of this year for i ntra-abdominal abscesses and/or fluid collections. The patient was admitted here in December and found to have moderate to large fluid collections in the right pararenal and left subsplenic regions of the abdomen. He had IR placement of drainage tubes placed and was seen in consultation by general surgery, GI, infectious disease. The patient was discharged to [facility] and then later to home with home health care. The patient completed 4 to 6 weeks of IV antibiotics through a PICC line. Discharge summary stated that the patient needed outpatient follow-up with GI and potentially a repeat CT scan of the abdomen and pelvis to assess for when the drains would need to be removed. The patient says that he did complete the antibiotics, but did not follow-up with GI. The patient says that he was not aware of any other further outpatient follow-up and presents today to figure out what to do about the drains. He denies any abdominal or back pain. He says that the drains have not been draining much as of recently. ED Past Medical Hx - Past Medical History Previous Medical History?: Yes Hx Hypertension: Yes Hx Congestive Heart Failure: No Hx Diabetes: No Hx Arthritis: Yes Hx Asthma: No Hx COPD: No Additional medical history: gouty arthritis. pancreatitis - Surgical History Past Surgical History?: Yes Additional Surgical History: surgery on scrotum - Social History Smoking Status: Never Smoker Substance Use Type: None - Medications Home Medications: Home Medications Medication Instructions Recorded Confirmed Last Taken Type Lipase/Protease/Amylase [Karen Au 1 cap PO TID 11/20/20 12/19/20 11/18/20 History 6,000 Units] Potassium Gluconate [Potassium] 595 mg PO QDAY 11/20/20 12/19/20 11/18/20 History allopurinoL [Zyloprim] 300 mg PO DAILY 11/20/20 12/19/20 11/18/20 History Meropenem [Merrem] 2,000 mg IV Q8HR vial 12/16/20 12/19/20 Unknown Rx ED Review of Systems ROS: Stated complaint: TUBE CHECK Other details as noted in HPI Comment: All other systems reviewed and negative Constitutional: denies: chills, fever Eyes: denies: eye pain, vision change ENT: denies: ear pain, throat pain Respiratory: denies: cough, shortness of breath Cardiovascular: denies: chest pain, palpitations Gastrointestinal: denies: nausea, vomiting Genitourinary: denies: dysuria, discharge Musculoskeletal: denies: back pain, arthralgia Skin: denies: rash, lesions Neurological: denies: headache, weakness Physical Exam - Physical Exam Vital Signs: Vital Signs 03/11/21 09:33 Temperature 97.6 F Pulse Rate 81 Respiratory 16 Rate Blood Pressure 120/79 [Right] O2 Sat by Pulse 98 Oximetry Physical Exam: GENERAL: The patient is well-developed well-nourished. HENT: Normocephalic. Atraumatic. Patient has moist mucous membranes. EYES: Extraocular motions are intact. NECK: Supple. Trachea is midline. CHEST/LUNGS: Clear to auscultation. There is no respiratory distress noted. HEART/CARDIOVASCULAR: Regular. There is no tachycardia. There is no murmur. ABDOMEN: Abdomen is soft, nontender. Patient has normal bowel sounds. SKIN: Skin is warm and dry. There is a surgical drain to the left upper quadrant of the abdomen and another surgical drain to the right lateral posterior flank/back. No surrounding erythema, bleeding, discharge. NEURO: The patient is awake, alert, and oriented. The patient is cooperative. Normal speech. MUSCULOSKELETAL: There is no tenderness or deformity. There is no limitation range of motion. ED Course Vital Signs 03/11/21 09:33 Temperature 97.6 F Pulse Rate 81 Respiratory 16 Rate Blood Pressure 120/79 [Right] O2 Sat by Pulse 98 Oximetry - Consultations Consultation #1: 03/11/21 10:[address] Mehta, general surgery. He says that the patient can follow- up outpatient for evaluation of his abdominal drains. There are no labs or imaging studies necessary at this time. ED Medical Decision Making - Medical Decision Making This patient presents to the emergency department concerned about how to proceed with the surgical drains that he has in place to the left upper quadrant of the abdomen, the right posterior lateral flank/back, that has been in there since December for treatment of 2 different intra-abdominal abscesses and/or fluid collections. The patient was initially seen here last night but eloped. The drains do not appear to have any drainage within them. The areas do not appear to be infected surrounding the drain. The patient denies any abdominal or back pain. He completed all of the PICC line antibiotics. The patient has been noncompliant with outpatient follow-up with ID and GI. I spoke with the general surgeon who saw the patient as a consultation, Dr. Mehta, who says that the patient can be discharged and he will see him in his office outpatient for evaluation of these drains and when to remove them. Critical Care Time: No Critical care attestation.: If time is entered above; I have spent that time in minutes in the direct care of this critically ill patient, excluding procedure time. ED Disposition Clinical Impression: History of abdominal abscess Disposition: 01 HOME / SELF CARE / HOMELESS Is pt being admited?: No Condition: Stable Additional Instructions: Please call and make an appointment with Dr. Mehta, general surgery, for evaluation of your abdominal drains. Return to the emergency department with any worsening of your symptoms, new or concerning symptoms not addressed during this current emergency department visit, or with any acute distress. Referrals: SREE MEHTA MD [Staff Physician] - 2-3 Days PRIMARY CARE, [Primary Care Provider] - 2-3 Days Time of Disposition: 10:12
== END 2021-03-11 10:35 | disposition home or self-care (01) ==
LOC: ED 08:57
DX: Z48.03 Encounter for change or removal of drains (principal); Z87.19 Personal history of other diseases of the digestive system; I10 Essential (primary) hypertension
CPT/HCPCS: 99281